=== PATIENT | female | born 1985 | race Caucasian/White ===

== ENCOUNTER 2020-08-18 04:22 | Emergency (ER) | payer MEDICAID, SELFPAY ==
[2020-08-18 04:35] VITALS: BP 112/78; PULSE 102; RESP 18; TEMP 37; O2SAT 100; BMI 26.4
--- NOTE | 2020-08-18 04:42 | XR_ITS ---
EXAMINATION: XR HAND, LEFT CLINICAL INFORMATION: Fourth finger trauma COMPARISON: None TECHNIQUE: PA, lateral, and oblique views of the left hand. FINDINGS: Osseous alignment is anatomic. No acute fracture is seen. No significant focal soft tissue abnormality identified. XR/XR hand LT min 3V IMPRESSION: No acute findings identified.
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
== END 2020-08-18 05:54 | disposition home or self-care (01) ==
PROVIDERS: Emergency Provider Emergency Medicine
DX: S63.615A Unspecified sprain of left ring finger, initial encounter (principal); S60.042A Contusion of left ring finger without damage to nail, initial encounter; M79.645 Pain in left finger(s); Y33.XXXA Other specified events, undetermined intent, initial encounter; Y93.9 Activity, unspecified; Y92.9 Unspecified place or not applicable; Y99.9 Unspecified external cause status
CPT/HCPCS: 73130; 99283

== ENCOUNTER 2020-09-03 17:20 | Emergency (ER) | payer MEDICAID, SELFPAY ==
--- NOTE | 2020-09-03 21:24 | ED.GENADULT ---
HPI - General Adult General Chief complaint: General Medical Stated complaint: Flu like symptoms Time Seen by Provider: 09/03/20 20:09 Source: patient Mode of arrival: ambulatory Limitations: no limitations History of Present Illness HPI narrative: Rhino/congestion here with with similar symptoms concern for COVID-19. Denies any recent travel. No fever or chest pain or shortness of breath. Onset (ago): day(s) (1 days ) Exacerbating factors: none Treatments prior to arrival: none Related Data Allergies Allergy/AdvReac Type Severity Reaction Status Date / Time No Known Allergies Allergy Unverified 08/18/20 04:40 [No Known Allergies*] Review of Systems Review of Systems: Constitutional: No Weight loss, No Fever, No Chills, No Night Sweats, No Fatigue, No Malaise ENT/Mouth: No Hearing loss, No Ear Pain, + Nasal Congestion, No Sinus Pain, No Hoarseness, No sore throat, + Rhinorrhea, No Swallowing Difficulty Eyes: No Eye Pain, No Swelling, No Redness, No Foreign Body, No Discharge, No Vision Changes Cardiovascular: No Chest Pain, No SOB, No Dyspnea on Exertion, No Orthopnea, No Edema, No Palpitations Respiratory: No Cough, No Sputum, No Wheezing, No Smoke Exposure, No Dyspnea Gastrointestinal: No Nausea, No Vomiting, No Diarrhea, No Constipation, No abdominal Pain, No Hematochezia, No Melena Genitourinary: no irregular bleeding, No Dysuria, No Urinary Frequency, No Hematuria, No Urinary Incontinence, No Urgency, No Flank Pain, No Urinary Flow Changes, No Hesitancy Musculoskeletal: No joint pain, No Myalgias, No Joint Swelling Skin: No Skin Lesions, No rash Neuro: No Weakness, No Numbness, No Paresthesias, No Loss of Consciousness, No Dizziness, No Headache Psych: No Anxiety/Panic Heme/Lymph: No Bruising, No Bleeding,No Lymphadenopathy Endocrine: No Polyuria, No Polydipsia, No Temperature Intolerance Yes all other systems are reviewed and are negative [facility] Past Medical History Surgical History Hx of foot surgery Social History Social History Advance Directives: No Advance Directives Information Provided: No Physical Exam Vital Signs: Vital Signs: Reviewed Const: General: cooperative and healthy appearing; No acute distress or intoxicated appearing Nutritional Appearance: average body habitus Orientation/consciousness: patient oriented x3 HENMT: Head: Yes normal to inspection Ears: hearing grossly normal bilaterally Eyes: General: appearance normal, both eyes and all related structures Visual Horner: normal visual horner by confrontation Neck: Neck: Yes normal visual inspection, No positive Brudzinski's sign, No positive Kernig's sign and No tender Thyroid: Thyroid normal Chest: Chest palpation & inspection: normal inspection of the chest Resp: Effort & Inspection: normal respiratory effort Cardio: Jugular venous distension: no JVD : General: Yes no CVA tenderness Back/Spine/Pelvis: Back: no CVA tenderness Skin: General skin exam: no rashes or lesions noted Neuro: General: patient oriented x3 Extrem: General: Yes normal to inspection Discharge Plan Discharge Clinical Impression: Viral syndrome Patient Disposition: Home, Self-Care Instructions: Viral Syndrome (ED) Additional Instructions: Based on your symptoms and history we have sent a COVID-19. Although your RESULT IS PENDING at this time. RESULTS should return within 72 hours. At this time you will be contacted with either NEGATIVE OR POSITIVE results. -Please wait until we contact you for your results. At this time you will be okay for discharge. Please plan for self quarantine for up to 14 days. Do not expose yourself to others. You may not go to work. If testing does come back negative you may return to activities as long as you are no longer having any symptoms for at least 3 days. Please continue to follow cold instructions and wash your hands frequently. You may take Tylenol as directed on the bottle for pain or fever. Patient seen in the emergency department on 04/20/2020 and should be excused from work until negative test results AND until 72 hours without any symptoms AND at least 10 days have passed since symptoms first appeared or since last exposure to COVID-19 positive patient CDC Guidelines for home isolation: - Stay away from others - WEAR A MASK if you are sick AND STAY HOME - Cover your mouth and nose with a tissue when you cough or sneeze. Dispose of tissues in a lined trash can and wash your hands immediately with soap and water for at least 20 seconds. If soap and water are not available, clean hands with alcohol-based hand accountant controller that contains at least 60% alcohol. - Clean your hands often with soap and water for at least 20 seconds - Avoid touching your eyes, nose and mouth with unwashed hands - Do not share dishes, drinking glasses, cups, eating utensils, towels, or bedding with other people in your home. After using these items, wash them thoroughly with soap and water or put in the solar systems designer. - Clean high-touch surfaces in your isolation area ( sick room and bathroom) every day; let a caregiver clean and disinfect high-touch surfaces in other areas of the home. Clean the area or item with soap and water or another detergent if it is dirty. Then, use a household disinfectant. - Limit contact with pets and animals: If you must care for a pet, wash your hands before and after interacting with them Referrals: Yolanda Aaron MD [Primary Care Provider] - 1 week (Phone visit )
== END 2020-09-03 21:48 | disposition home or self-care (01) ==
PROVIDERS: Nurse Practitioner Primary Care; Emergency Provider Emergency Medicine; PCP Internal Medicine
DX: B34.9 Viral infection, unspecified (principal); Z20.828 Contact with and (suspected) exposure to other viral communicable diseases
CPT/HCPCS: 99282; 99283; U0003

== ENCOUNTER 2020-09-10 07:13 | Outpatient (REF) | payer MEDICAID, SELFPAY | END 2020-09-10 07:14 | disposition home or self-care (01) | LOC: HO.LAB 07:13 | PROVIDERS: Visit Provider Internal Medicine | DX: Z20.828 Contact with and (suspected) exposure to other viral communicable diseases (principal) | CPT/HCPCS: C9803; U0003 ==

== ENCOUNTER 2020-10-05 09:53 | Outpatient (REF) | payer MEDICAID, SELFPAY ==
[2020-10-06 11:05] LABS: BV Int Neg Control Negative (Negative); BV Int Pos Control Positive (Positive)
[2020-10-10 16:43] LABS: HPV mRNA E6/E7 rflx Not Detected (Not Detected)
[2020-11-02 22:16] LABS: CT PCR NOT DETECTED (Not Detect.); NG PCR NOT DETECTED (Not Detect.)
== END 2020-10-05 09:54 | disposition home or self-care (01) ==
LOC: HO.LAB 09:53
PROVIDERS: PCP Internal Medicine; Referring Provider Internal Medicine; Visit Provider Advanced Practice Midwife
DX: Z01.419 Encounter for gynecological examination (general) (routine) without abnormal findings (principal); N76.1 Subacute and chronic vaginitis; Z87.42 Personal history of other diseases of the female genital tract; N63.0 Unspecified lump in unspecified breast; R10.2 Pelvic and perineal pain
CPT/HCPCS: 87480; 87491; 87510; 87591; 87624; 87625; 87660; 88142

== ENCOUNTER 2020-10-12 08:53 | Outpatient (REF) | payer MEDICAID, SELFPAY ==
--- NOTE | 2020-10-12 09:00 | US_ITS ---
EXAMINATION: MM DIAGNOSTIC DIGITAL BREAST TOMOSYNTHESIS, BILATERAL US DIAGNOSTIC ULTRASOUND BREAST, BILATERAL CLINICAL INFORMATION: 35-year-old with bilateral palpable findings at clinical exam. 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 Family history premenopausal breast cancer, aunt, age 29. The lifetime risk of breast cancer based on the Tyrer-Cuzick Model is 15%. COMPARISON: Mammography: 08/27/2018, 08/23/2018; targeted left breast ultrasound 08/23/2018, ultrasound guided left core biopsy 08/27/2018. TECHNIQUE: Digital breast tomosynthesis is performed in both the craniocaudal and mediolateral oblique views along with computer-aided detection (CAD). Synthesized 2D images are generated from the tomosynthesis. Additional bilateral magnification CC and bilateral magnification ML views are obtained. Ultrasound bilateral breasts is targeted to the areas of clinical concern, bilateral medial breasts. No palpable concern no discharge noted by patient. Grayscale imaging and color Doppler are performed without and with harmonics. FINDINGS: MAMMOGRAPHY: The breasts are heterogeneously dense, which may obscure small masses (ACR BI-RADS breast composition Category c). Left: Left breast has small macrolobulated nodule anterior 4:00 position best seen on tomography, similar to prior mammography 2018 and consistent with cyst on prior ultrasound. The other mass mid upper inner quadrant with superimposed biopsy clip marker appears stable to slightly decreased and consistent with biopsy-proven fibroadenoma. Left breast shows no developing density or interval new mass or architectural abnormality. Left breast has new fine punctate calcifications anterior 3:00 position which slightly vary in shape, some round and some short linear. Stereotactic sampling left breast is recommended. Right: Right breast has subtle oval asymmetry posterior upper outer quadrant near area of palpable concern with smooth partly obscured margins measuring approximately 1.6 x 1.2 cm. Finding not seen with certainty on prior mammography 2018. There are new fine punctate calcifications central right breast regionally distributed without focal grouping or ductal distribution. These may be reassessed with mammography in 6 months. ULTRASOUND: Left: The previously sampled fibroadenoma is similar in size to prior ultrasound 2018. Current measurements are 2.0 x 1.6 x 1.0 cm and prior measurements 2.2 x 1.8 x 1.1 cm. There is no interval new cystic or solid mass or architectural abnormality. No focal duct ectasia. Right: There is a circumscribed mildly hypoechoic mass posterior upper inner quadrant measuring 2.2 x 1.3 x 0.9 cm with internal small peripheral cystic component measuring 0.6 x 0.3 cm. Lesion decreases in echogenicity on harmonics. There is no posterior shadowing. This appears to correspond to the size and shape and location of finding on mammography. Differential considerations include pseudoangiomatous stromal hyperplasia, fibroadenoma, other. Ultrasound-guided core biopsy is recommended. There are no other cystic or solid masses or architectural abnormality in the targeted right breast. MANAGEMENT: Results are discussed with the patient at time of visit, with tile power shear operator assistance. Recommendations are for stereotactic biopsy left breast calcifications anterior 3:00 position and ultrasound-guided core biopsy right breast mass posterior upper inner quadrant. US/US breast RT limited IMPRESSION: 1. Left: New loosely grouped calcifications anterior 3:00 position. Biopsy proven fibroadenoma near area of palpable concern, stable. 2. Right: New probable benign regional calcifications. Oval mass posterior upper inner quadrant corresponding to area of palpable concern. ASSESSMENT: BI-RADS 4: Suspicious RECOMMENDATION: 1. Stereotactic biopsy left breast calcifications. 2. Ultrasound-guided core biopsy right breast mass. The right breast calcifications may be reassessed with mammography in 6 months.
== END 2020-10-12 08:54 | disposition home or self-care (01) ==
LOC: HO.MAMMO 08:53
PROVIDERS: Visit Provider Advanced Practice Midwife
DX: N63.12 Unspecified lump in the right breast, upper inner quadrant (principal); N63.22 Unspecified lump in the left breast, upper inner quadrant; N36.0 Urethral fistula
CPT/HCPCS: 76642; 77062; 77066

== ENCOUNTER → 2020-10-18 11:23 | Outpatient (BNVA) | payer MEDICAID, SELFPAY | PROVIDERS: PCP Internal Medicine; Visit Provider Surgery | DX: N63.12 Unspecified lump in the right breast, upper inner quadrant (principal); R92.0 Mammographic microcalcification found on diagnostic imaging of breast | CPT/HCPCS: 99202 ==

== ENCOUNTER 2020-10-24 08:07 | Outpatient (REF) | payer MEDICAID, SELFPAY ==
--- NOTE | 2020-10-24 | MM_ITS ---
EXAMINATION: ULTRASOUND GUIDED CORE BIOPSY BREAST, RIGHT POST PROCEDURE DIGITAL BREAST TOMOSYNTHESIS, BILATERAL CLINICAL INFORMATION: Solid mass at palpable area of concern 1:00 right breast. Ultrasound-guided core sampling recommended. This procedure is performed immediately following contralateral left breast stereotactic biopsy for calcifications, described in separate report. COMPARISON: Digital breast tomosynthesis and targeted right breast ultrasound 10/12/2020. FINDINGS: Proper informed consent is obtained from the patient after discussion of the procedure, potential risks and complications, and alternatives. Patient was given an opportunity for questions. The patient appeared to understand. The patient consented to the procedure and signed the consent form. Hospital provided livestock producer assisted for consent and throughout the procedures. GUIDANCE: Ultrasound-guided; aseptic technique. LESION: Oval circumscribed mass 2.2 x 1.3 x 0.9 cm with internal small peripheral cystic component under 1 cm. Differential considerations: PASH, Fibroadenoma, benign phylloides, other. APPROACH: Caudal cranial. ANESTHESIA: 10 mL 1% lidocaine. DERMATOTOMY: Single skin ronaldo dermatotomy performed. NEEDLE: 14-gauge Achieve core biopsy device with 13.5-gauge co-axial guide needle. CORES: 5. CLIP: HydroMARK; shape: butterfly. POST PROCEDURE DIGITAL BREAST TOMOSYNTHESIS, BILATERAL: The post biopsy mammogram is performed in separate room using separate digital mammography tomosynthesis equipment from the biopsy procedures. Bilateral CC and bilateral ML views are obtained. The breasts are heterogeneously dense, which may obscure small masses (breast composition category: c). The bilateral clip markers are in expected position. There is no gross hematoma. The left breast has a old clip marker upper inner quadrant corresponding to a fibroadenoma sampled in 2018. The patient tolerated the procedure well. No immediate complications. Home instructions reviewed with the patient. Final pathology results are pending. MM/MM diagnostic mammo unilat RT IMPRESSION: 1. Status post ultrasound-guided core biopsy right breast. 2. Clip placed: HydroMARK; shape: butterfly. 3. Pathology pending. An addendum report will be issued. 4. Stereotactic biopsy contralateral left breast also performed today, described in separate report.
--- NOTE | 2020-10-24 08:13 | MM_ITS ---
EXAMINATION: STEREOTACTIC TOMOSYNTHESIS-GUIDED VACUUM-ASSISTED BREAST BIOPSY, LEFT SPECIMEN RADIOGRAPH, LEFT CLINICAL INFORMATION: 35-year-old with new fine punctate calcifications anterior 3:00 position with slightly vary in shape. There are some layering calcifications as well and this area which may suggest calcium oxalate. Family history premenopausal breast cancer in an aunt, age 29. Patient also had ultrasound-guided core biopsy contralateral right breast today, described in separate report. COMPARISON: Mammography 10/12/2020, left breast ultrasound 10/12/2020. TECHNIQUE/PROCEDURE: Informed consent was obtained from the patient after discussion of the benefits, risks, and alternatives to biopsy today. Patient appeared to understand. Gave opportunity for questions. Patient signed consent form. Hospital provided public finance specialist assisted for consent and throughout the procedures. BIOPSY TABLE: Spacebikini Prone Biopsy System. LESION: Calcifications anterior 3:00 position. LOCAL ANESTHESIA: 5 mL 1% lidocaine; 10 mL 1% lidocaine with epinephrine. DERMATOTOMY: Single skin ronaldo dermatotomy performed. NEEDLE: BrandShieldiva 9-gauge vacuum assisted core biopsy device. APPROACH: lateral medial. TARGETING: Combination of digital breast tomosynthesis and stereotactic digital mammography used for targeting. CORES: 13. CLIP: emo2 IncurMark T-shaped marker. SPECIMEN RADIOGRAPH: Specimen radiograph is taken in separate room using digital mammography. The index calcifications are in the excised cores. There are over 10 calcifications in the cores. Post procedure mammography performed following the contralateral right breast biopsy, described in separate report. There is satisfactory positioning of the clip. No gross hematoma. The patient tolerated the procedure well. No immediate complications. Home instructions reviewed with the patient. Final pathology results are pending. MM/MM stereotactic biopsy LT IMPRESSION: 1. Digital tomosynthesis-guided core biopsy left breast with clip placement. 2. Specimen radiograph taken and post procedure mammogram. There is satisfactory positioning of the biopsy clip. 3. Final pathology results pending. An addendum report will be issued.
--- NOTE | 2020-10-24 08:13 | US_ITS ---
EXAMINATION: ULTRASOUND GUIDED CORE BIOPSY BREAST, RIGHT POST PROCEDURE DIGITAL BREAST TOMOSYNTHESIS, BILATERAL CLINICAL INFORMATION: Solid mass at palpable area of concern 1:00 right breast. Ultrasound-guided core sampling recommended. This procedure is performed immediately following contralateral left breast stereotactic biopsy for calcifications, described in separate report. COMPARISON: Digital breast tomosynthesis and targeted right breast ultrasound 10/12/2020. FINDINGS: Proper informed consent is obtained from the patient after discussion of the procedure, potential risks and complications, and alternatives. Patient was given an opportunity for questions. The patient appeared to understand. The patient consented to the procedure and signed the consent form. Hospital provided diplomatic interpreter/translator assisted for consent and throughout the procedures. GUIDANCE: Ultrasound-guided; aseptic technique. LESION: Oval circumscribed mass 2.2 x 1.3 x 0.9 cm with internal small peripheral cystic component under 1 cm. Differential considerations: PASH, Fibroadenoma, benign phylloides, other. APPROACH: Caudal cranial. ANESTHESIA: 10 mL 1% lidocaine. DERMATOTOMY: Single skin ronaldo dermatotomy performed. NEEDLE: 14-gauge Achieve core biopsy device with 13.5-gauge co-axial guide needle. CORES: 5. CLIP: HydroMARK; shape: butterfly. POST PROCEDURE DIGITAL BREAST TOMOSYNTHESIS, BILATERAL: The post biopsy mammogram is performed in separate room using separate digital mammography tomosynthesis equipment from the biopsy procedures. Bilateral CC and bilateral ML views are obtained. The breasts are heterogeneously dense, which may obscure small masses (breast composition category: c). The bilateral clip markers are in expected position. There is no gross hematoma. The left breast has a old clip marker upper inner quadrant corresponding to a fibroadenoma sampled in 2018. The patient tolerated the procedure well. No immediate complications. Home instructions reviewed with the patient. Final pathology results are pending. US/US breast ndl core biopsy RT IMPRESSION: 1. Status post ultrasound-guided core biopsy right breast. 2. Clip placed: HydroMARK; shape: butterfly. 3. Pathology pending. An addendum report will be issued. 4. Stereotactic biopsy contralateral left breast also performed today, described in separate report.
== END 2020-10-24 08:08 | disposition home or self-care (01) ==
LOC: HO.MAMMO 08:07
PROVIDERS: PCP Internal Medicine; Visit Provider Surgery
DX: R92.0 Mammographic microcalcification found on diagnostic imaging of breast (principal); N63.10 Unspecified lump in the right breast, unspecified quadrant
CPT/HCPCS: 19081; 19083; 77065; 77066; 88305; A4648

== ENCOUNTER → 2020-10-24 12:59 | Outpatient (BNV) | payer MEDICAID, SELFPAY | PROVIDERS: PCP Internal Medicine; Referring Provider Internal Medicine; Visit Provider Internal Medicine Medical Oncology | DX: I26.99 Other pulmonary embolism without acute cor pulmonale (principal) | CPT/HCPCS: 99202; 99204; 99213; 99214 ==

== ENCOUNTER → 2020-10-30 13:50 | Outpatient (BNVA) | payer MEDICAID, SELFPAY | PROVIDERS: PCP Internal Medicine; Visit Provider Surgery | DX: N63.10 Unspecified lump in the right breast, unspecified quadrant (principal); R92.0 Mammographic microcalcification found on diagnostic imaging of breast | CPT/HCPCS: 99212 ==

== ENCOUNTER 2020-11-08 13:01 | Outpatient (REF) | payer MEDICAID, SELFPAY ==
[2020-11-09 12:43] LABS: BV Int Neg Control Negative (Negative); BV Int Pos Control Positive (Positive)
[2020-11-09 19:17] LABS: C. trachomatis RNA TMA NOT DETECTED (NOT DETECTED); N. gonorrhoeae RNA TMA NOT DETECTED (NOT DETECTED)
[2020-11-12 15:47] LABS: HPV mRNA E6/E7 rflx Not Detected (Not Detected)
== END 2020-11-08 13:02 | disposition home or self-care (01) ==
LOC: HO.LAB 13:01
PROVIDERS: PCP Internal Medicine; Visit Provider Advanced Practice Midwife
DX: N89.8 Other specified noninflammatory disorders of vagina (principal); R10.2 Pelvic and perineal pain; R87.615 Unsatisfactory cytologic smear of cervix; F17.210 Nicotine dependence, cigarettes, uncomplicated
CPT/HCPCS: 36415; 87480; 87491; 87510; 87591; 87624; 87660; 88141; 88142; 99212

== ENCOUNTER 2021-01-15 11:32 | Outpatient (REF) | payer MEDICAID, SELFPAY ==
--- NOTE | ~2021-01-15 | US_ITS ---
EXAMINATION: US VENOUS ULTRASOUND WITH DOPPLER LOWER EXTREMITY, BILATERAL CLINICAL INFORMATION: Evaluate for DVT COMPARISON: None TECHNIQUE: Ultrasound of the deep veins is performed from the hip to the calf with compression sonography and color and pulse Doppler assessment. Spectral analysis with color-flow imaging is performed. FINDINGS: RIGHT: There is normal venous compression and respiratory variation and augmented flow. The visualized common femoral vein, superficial femoral vein, profunda femoral vein, popliteal vein, and the trifurcation region shows no evidence of deep venous thrombosis. There is no significant popliteal fossa cyst. LEFT: There is normal venous compression and respiratory variation and augmented flow. The visualized common femoral vein, superficial femoral vein, profunda femoral vein, popliteal vein, and the trifurcation region shows no evidence of deep venous thrombosis. There is no significant popliteal fossa cyst. If the patient's symptoms persist, followup ultrasound in 5 days 7 days might be of value to exclude proximal propagation from a non-visualized calf vein. US/US venous duplex LE BI IMPRESSION: No DVT demonstrated in the bilateral lower extremity.
== END 2021-01-15 11:33 | disposition home or self-care (01) ==
LOC: HO.HMGCX 11:32
PROVIDERS: Visit Provider Internal Medicine Medical Oncology
DX: I82.403 Acute embolism and thrombosis of unspecified deep veins of lower extremity, bilateral (principal)
CPT/HCPCS: 93970

== ENCOUNTER 2021-04-19 12:59 | Outpatient (REF) | payer MEDICAID, SELFPAY ==
--- NOTE | ~2021-04-19 | MM_ITS ---
EXAMINATION: MM DIAGNOSTIC DIGITAL BREAST TOMOSYNTHESIS, BILATERAL CLINICAL INFORMATION: Age 35. Short interval follow-up probable benign calcifications central right breast. Also short interval follow-up remaining left breast calcifications outer quadrant (benign left stereotactic biopsy 10/24/2020: benign breast tissue with fibrocystic changes and calcifications). Prior history bilateral benign ultrasound-guided biopsies: right 10/24/2020 (fibroadenoma) and left 08/27/2018 (fibroadenoma). The lifetime risk of breast cancer based on the Tyrer-Cuzick Model is 12%. COMPARISON: Mammography: 10/24/2020, 10/12/2020, 08/23/2018 TECHNIQUE: Digital breast tomosynthesis is performed in both the craniocaudal and mediolateral oblique views along with computer-aided detection (CAD). Synthesized 2D images are generated from the tomosynthesis. Additional bilateral magnification CC and bilateral magnification ML views are obtained. FINDINGS: The breasts are heterogeneously dense, which may obscure small masses (ACR BI-RADS breast composition Category c). There is no interval mass or architectural abnormality. The axilla and skin contours are unremarkable. Parenchymal pattern is similar to prior exam. Again, there is biopsy clip marker adjacent to the known fibroadenoma mid medial left breast. Again, there is biopsy clip marker overlying known right fibroadenoma mid medial right breast. Right breast calcifications for follow-up central breast are stable from prior diagnostic exam. These are punctate round and without pleomorphic types or interval ductal distribution. They will be reassessed again in 6 months at time of annual exam. Left breast calcifications are decreased in the area of recent sampling. The remaining left breast calcifications are stable appearing scattered and similar without focal grouping or ductal distribution. They will be reassessed again in 6 months at time of annual exam. Results are provided to the patient at time of visit by the technologist. MM/MM tomosynthesis diagnostic BI IMPRESSION: 1. No significant changes and probable benign bilateral breast calcifications. 2. Known bilateral fibroadenomas medial breasts. No significant changes. ASSESSMENT: BI-RADS 3: Probably Benign RECOMMENDATION: Diagnostic mammography at time of annual bilateral exam to include bilateral magnification views, due in 6 months. This patient's information was entered into a reminder system with a target due date for their next mammogram.
== END 2021-04-19 13:00 | disposition home or self-care (01) ==
LOC: HO.MAMMO 12:59
PROVIDERS: Visit Provider Surgery
DX: R92.0 Mammographic microcalcification found on diagnostic imaging of breast (principal)
CPT/HCPCS: 77062; 77066

== ENCOUNTER 2021-05-07 13:53 | Outpatient (REF) | payer MEDICAID, SELFPAY ==
[2021-05-08 09:19] LABS: CT PCR NOT DETECTED (Not Detect.); NG PCR NOT DETECTED (Not Detect.)
[2021-05-08 09:24] LABS: BV Int Neg Control Negative (Negative); BV Int Pos Control Positive (Positive)
== END 2021-05-07 13:54 | disposition home or self-care (01) ==
LOC: HO.LAB 13:53
PROVIDERS: PCP Internal Medicine; Visit Provider Advanced Practice Midwife
DX: Z11.3 Encounter for screening for infections with a predominantly sexual mode of transmission (principal); R10.2 Pelvic and perineal pain; Z20.2 Contact with and (suspected) exposure to infections with a predominantly sexual mode of transmission
CPT/HCPCS: 81003; 81025; 87480; 87491; 87510; 87591; 87660; 99212

== ENCOUNTER 2021-06-21 21:34 | Emergency (ER) | payer MEDICAID, SELFPAY ==
[2021-06-21 22:04] VITALS: BP 114/85; PULSE 73; RESP 18; TEMP 36.9; O2SAT 99; BMI 27.9
[2021-06-21 23:00] LABS: Influenza A PCR NEGATIVE (Negative); Influenza B PCR NEGATIVE (Negative); Resp Syncy Virus RNA Qual PCR NEGATIVE (Negative); SARS COV2 PCR INHOUSE NEGATIVE (Negative)
--- NOTE | 2021-06-22 00:30 | PC.NURSE ---
pt and family left before md to see pt
== END 2021-06-22 00:31 | disposition left against medical advice (07) ==
PROVIDERS: Emergency Provider Student in an Organized Health Care Education/Training Program; PCP Internal Medicine
DX: J02.9 Acute pharyngitis, unspecified (principal); Z20.822 Contact with and (suspected) exposure to COVID-19
CPT/HCPCS: 0241U; 36415; 99281; 99283

== ENCOUNTER → 2021-07-24 09:29 | Outpatient (BNVA) | payer MEDICAID, SELFPAY | PROVIDERS: PCP Internal Medicine; Visit Provider Advanced Practice Midwife ==

== ENCOUNTER 2021-08-15 09:49 | Outpatient (REF) | payer MEDICAID, SELFPAY ==
--- NOTE | 2021-08-15 | PFT_ITS ---
INDICATION: History of pulmonary emboli. SPIROMETRY: The FEV1 to FVC 89% with an FEV1 of 2.97 L, which is 99% predicted, and an FVC of 3.34 L, which is 93% predicted. Maximum voluntary ventilation 170% predicted. LUNG VOLUMES: Total lung capacity 92% predicted. DIFFUSION CAPACITY: DLCO 87% predicted. COMPARISONS: None. INTERPRETATION: No obstructive nor restrictive ventilatory defects identified. No significant response to bronchodilators noted. Normal maximum voluntary ventilation suggesting good respiratory conditioning and lung volumes are within normal limits. The expiratory reserve volume is slightly decreased, but likely due to an elevated BMI. Diffusion capacity is within normal limits. If asthma is in the differential, methacholine challenge may be helpful in assessing for hyper-reactive airways, otherwise clinical correlation warranted. MD JORGE Oakes/MODOsmani / [id number]
== END 2021-08-15 09:50 | disposition home or self-care (01) ==
LOC: HO.RESP 09:49
PROVIDERS: PCP Internal Medicine; Visit Provider Internal Medicine
DX: Z86.711 Personal history of pulmonary embolism (principal); Z87.891 Personal history of nicotine dependence
CPT/HCPCS: 94060; 94727; 94729

== ENCOUNTER 2021-08-16 08:50 | Outpatient (REF) | payer MEDICAID, SELFPAY ==
[2021-08-16 14:20] LABS: CT PCR NOT DETECTED (Not Detect.); NG PCR NOT DETECTED (Not Detect.)
[2021-08-18 12:35] LABS: BV Int Neg Control Negative (Negative); BV Int Pos Control Positive (Positive)
== END 2021-08-16 08:51 | disposition home or self-care (01) ==
LOC: HO.LAB 08:50
PROVIDERS: PCP Internal Medicine; Visit Provider Advanced Practice Midwife
DX: R10.2 Pelvic and perineal pain (principal); N76.0 Acute vaginitis; B96.89 Other specified bacterial agents as the cause of diseases classified elsewhere; Z20.2 Contact with and (suspected) exposure to infections with a predominantly sexual mode of transmission
CPT/HCPCS: 87480; 87491; 87510; 87591; 87660; 99212

== ENCOUNTER 2021-08-21 13:36 | Outpatient (REF) | payer MEDICAID, SELFPAY ==
--- NOTE | ~2021-08-21 | US_ITS ---
EXAMINATION: US PELVIS CLINICAL INFORMATION: Pelvic and perineal pain COMPARISON: Previous exam May 2018 TECHNIQUE: Ultrasound of the pelvis is performed using both transabdominal and transvaginal transducers along with Doppler. Transvaginal imaging is performed due to inadequate visualization transabdominally. FINDINGS: The uterus is retroverted and measures 9 x 5 x 6.7 cm in dimension. No focal uterine lesion is seen. Endometrial thickness is normal measuring 0.9 cm. The ovaries are normal. The right ovary measures 2.6 x 1 x 2 cm. The left ovary measures 2.2 x 1.3 x 1.3 cm. There is no fluid in the pelvis. US/US pelvic and transvaginal IMPRESSION: Normal pelvic ultrasound.
== END 2021-08-21 13:37 | disposition home or self-care (01) ==
LOC: HO.US 13:36
PROVIDERS: PCP Internal Medicine; Visit Provider Advanced Practice Midwife
DX: R10.2 Pelvic and perineal pain (principal)
CPT/HCPCS: 76830; 76856

== ENCOUNTER → 2021-08-29 11:37 | Outpatient (BNVA) | payer MEDICAID, SELFPAY | PROVIDERS: PCP Internal Medicine; Visit Provider Advanced Practice Midwife ==

== ENCOUNTER 2021-09-04 08:00 | Emergency (ER) | payer MEDICAID, SELFPAY ==
--- NOTE | ~2021-09-04 | XR_ITS ---
EXAMINATION: XR CHEST CLINICAL INFORMATION: Cough and fever COMPARISON: 08/18/2018 TECHNIQUE: Frontal view of the chest was obtained. FINDINGS: Lungs are well-inflated and clear. Trachea is midline in position. No interstitial disease, consolidation or mass. No pulmonary edema, pleural effusion or pneumothorax. Cardiac silhouette and pulmonary vessels are normal in size. The mediastinum and suha have normal contour. There is chronic levoscoliosis of the lower thoracic spine and rotatory dextroscoliosis of partially visualized lumbar spine. XR/XR chest 1V IMPRESSION: No evidence of pneumonia. No acute cardiopulmonary abnormality.
[2021-09-04 08:10] VITALS: BP 116/89; PULSE 108; RESP 18; TEMP 36.9; O2SAT 99; BMI 30.2
[2021-09-04 08:32] LABS: COVID-19 Test Negative (Negative)
--- NOTE | 2021-09-04 09:06 | ED.URI ---
HPI - URI/Sore Throat General Chief Complaint: Upper Respiratory Symptoms Stated Complaint: flu like symptoms, chest pain Time Seen by Provider: 09/04/21 09:06 Source: patient Mode of arrival: ambulatory Limitations: no limitations History of Present Illness HPI Narrative: cough, fever and shortness of breath starting yesterday. Patient is not vaccinated for COVID or flu. MD elicited complaint: fever and cough Pertinent past history: pneumonia Onset (ago): day(s) Consistency: constant Severity: mild Exacerbating factors: deep breaths Associated symptoms: fever, chills, myalgias, headache, rhinorrhea, nasal congestion, sore throat and cough Related Data Previous Rx's Medication Instructions Recorded asyfwzegcyrzm-DC-lvwowrphcjn 2.5 20 ml PO Q4H PRN #118 ml 09/04/21 mg-5 mg-50 mg/5 mL oral liquid (Robitussin Cough and Cold CF) Allergies Allergy/AdvReac Type Severity Reaction Status Date / Time No Known Allergies Allergy Verified 08/29/21 11:38 [No Known Allergies*] Review of Systems Constitutional: Constitutional: Reports no additional constitutional complaints Eyes: Eyes: Reports no additional eye complaints ENT: Denies dizziness Cardiovascular: Cardiovascular: Reports no additional cardiovascular complaints Respiratory: Respiratory: Reports as per HPI Gastrointestinal: Gastrointestinal: Reports no additional gastrointestinal complaints Genitourinary: Genitourinary: Reports no additional female genitourinary complaints Musculoskeletal: Musculoskeletal: Reports no additional musculoskeletal complaints Integumentary/Breasts: Skin/Breast: Denies rash Neurologic: Reports system reviewed and no additional complaints, except as documented, Denies dizziness and Denies Sensory deficit (Neuro) Psychiatric: Psychiatric: Denies anxiety FOR[facility] Past Medical History Medical History DVT (deep venous thrombosis) PE (pulmonary thromboembolism) Surgical History Hx of foot surgery Hx of tubal ligation Family History Family History Maternal Aunt Breast cancer Social History Social History Alcohol intake: never Advance Directives: No Advance Directives Information Provided: No Patient : No Gender identity: Female Physical Exam Vital Signs: Vital Signs: Last Vital Signs Temp 97.8 F 09/04/21 11:03 Pulse 103 H 09/04/21 11:03 Resp 16 09/04/21 11:03 BP 124/88 09/04/21 11:03 Pulse Ox 97 09/04/21 11:03 Body Mass Index 30.2 Const: Other: Female couging appearing slightly short of breath Nutritional Appearance: average body habitus Orientation/consciousness: oriented to person and patient oriented x3 Limitations: no limitations HENMT: Head: Yes normal to inspection Ears: external ears normal General nose exam: Normal external nose present Mouth: Normal oral and palatal mucosa present and oropharynx normal Throat: Yes posterior oropharynx normal Eyes: General: appearance normal, both eyes and all related structures Neck: Other: supple Neck: Yes normal visual inspection Chest: Chest palpation & inspection: normal inspection of the chest Resp: Other: no wheezing no rales Auscultation: clear to auscultation bilaterally Cardio: Jugular venous distension: no JVD Rate: regular rate Rhythm: regular rhythm Heart sounds: S1 normal heart sound present and S2 normal heart sound present GI: Inspection: Yes normal to inspection Palpation (GI): Soft to palpation, nontender and No hepatosplenomegaly present Auscultation: normal bowel sounds : General: Yes no CVA tenderness Back/Spine/Pelvis: Back: no CVA tenderness Skin: General skin exam: no rashes or lesions noted Neuro: General: oriented to person and patient oriented x3 Cranial nerves: Yes CN's II-XII intact bilaterally Motor exam (neuro): 5/5 motor strength present throughout Sensory Exam: No Sensory deficit (Neuro) Extrem: General: Yes normal to inspection Psych: Appearance: grossly normal Course Reevaluation(s) Reevaluation #1: Despite patient acting like COVID 2 tests are negative, Chest xray negative will dc with viral bronchitis Time: 11:32 MDM - URI/Sore Throat Lab Data Labs: Lab Results 09/04/21 09/04/21 Range/Units 08:13 09:29 COVID-19 (RACHELLE) Negative (Negative) COVID-19 Clin Com See Note Influenza Type A (PCR) NEGATIVE (Negative) Influenza Type B (PCR) NEGATIVE (Negative) RSV RNA Qual (PCR) NEGATIVE (Negative) SARS-CoV-2 RNA (RT-PCR) NEGATIVE (Negative) Imaging Data Chest x-ray: Radiologist's impression: FINDINGS: Lungs are well-inflated and clear. Trachea is midline in position. No interstitial disease, consolidation or mass. No pulmonary edema, pleural effusion or pneumothorax.? Cardiac silhouette and pulmonary vessels are normal in size. The mediastinum and suha have normal contour. There is chronic levoscoliosis of the lower thoracic spine and rotatory dextroscoliosis of partially visualized lumbar spine. XR/XR chest 1V IMPRESSION: No evidence of pneumonia. No acute cardiopulmonary abnormality. ? Discharge Plan Discharge Clinical Impression: Viral infection Upper respiratory infection Qualifiers: URI type: unspecified viral URI Qualified Code(s): J06.9 - Acute upper respiratory infection, unspecified Patient Disposition: Home, Self-Care Instructions: Upper Respiratory Infection (ED), Viral Syndrome (ED) Prescriptions: New Robitussin Cough and Cold CF 2.5-5-50 mg/5 mL liquid 20 ml PO Q4H PRN (Reason: cough) Qty: 118 RF: 0 Referrals: Yolanda Aaron MD [Primary Care Provider] - 1 week
[2021-09-04 10:30] LABS: Influenza A PCR NEGATIVE (Negative); Influenza B PCR NEGATIVE (Negative); Resp Syncy Virus RNA Qual PCR NEGATIVE (Negative); SARS COV2 PCR INHOUSE NEGATIVE (Negative)
[2021-09-04 11:03] VITALS: BP 124/88; PULSE 103; RESP 16; TEMP 36.6; O2SAT 97
== END 2021-09-04 11:43 | disposition home or self-care (01) ==
PROVIDERS: Emergency Provider Emergency Medicine; PCP Internal Medicine
DX: B34.9 Viral infection, unspecified (principal); J06.9 Acute upper respiratory infection, unspecified; Z20.822 Contact with and (suspected) exposure to COVID-19
CPT/HCPCS: 0241U; 36415; 71045; 87635; 99283; 99284

== ENCOUNTER 2021-12-25 09:20 | Outpatient (REF) | payer MEDICAID, SELFPAY ==
--- NOTE | ~2021-12-25 | MM_ITS ---
EXAMINATION: MM DIAGNOSTIC DIGITAL BREAST TOMOSYNTHESIS, BILATERAL CLINICAL INFORMATION: 36, follow-up probable benign calcifications central right breast and remaining left breast calcifications. Family history premenopausal breast cancer, aunt age 29. TC score 12%. Personal history benign biopsies: -Left ultrasound biopsy 08/27/2018 (fibroadenoma). -Left stereotactic biopsy 10/24/2020 (fibrocystic changes and calcifications). -Right ultrasound biopsy 10/24/2020 (fibroadenoma). COMPARISON: Mammography: 04/19/2021, 10/24/2020, 10/12/2020 (diagnostic with mags), 08/27/2018, 08/23/2018 TECHNIQUE: Digital breast tomosynthesis is performed in both the craniocaudal and mediolateral oblique views along with computer-aided detection (CAD). Synthesized 2D images are generated from the tomosynthesis. Additional magnification views are obtained: Right CC, right MLO, left CC x2, left ML. FINDINGS: The breasts are heterogeneously dense, which may obscure small masses (ACR BI-RADS breast composition Category c). Parenchymal pattern is similar to prior studies. There is no interval mass or architectural abnormality or developing density. There is stable fibroadenoma with adjacent biopsy clip marker anterior medial left breast and stable fibroadenoma with overlying biopsy clip marker posterior medial right breast. The bilateral axilla and skin contours are unremarkable. The bilateral calcifications for follow-up are predominantly central right breast and central upper outer left breast are stable from prior diagnostic exams. They will be reassessed again at next bilateral annual mammography to conclude long-term surveillance in 12 months. Results are provided to the patient at time of visit by the technologist. MM/MM tomosynthesis diagnostic BI IMPRESSION: -No mammographic evidence of malignancy. -Bilateral probable benign stable calcifications for follow-up. ASSESSMENT: BI-RADS 3: Probably Benign RECOMMENDATION: Diagnostic mammography at time of next annual exam, due in 12 months. This patient's information was entered into a reminder system with a target due date for their next mammogram.
== END 2021-12-25 09:21 | disposition home or self-care (01) ==
LOC: HO.MAMMO 09:20
PROVIDERS: PCP Internal Medicine; Visit Provider Surgery
DX: N63.10 Unspecified lump in the right breast, unspecified quadrant (principal); R92.0 Mammographic microcalcification found on diagnostic imaging of breast
CPT/HCPCS: 77062; 77066

== ENCOUNTER 2022-02-12 14:33 | Outpatient (REF) | payer MEDICAID, SELFPAY ==
[2022-02-13 01:50] LABS: CT PCR NOT DETECTED (Not Detect.); NG PCR NOT DETECTED (Not Detect.)
[2022-02-13 11:11] LABS: BV Int Neg Control Negative (Negative); BV Int Pos Control Positive (Positive)
[2022-02-15 02:06] LABS: HPV mRNA E6/E7 rflx Not Detected (Not Detected)
== END 2022-02-12 14:34 | disposition home or self-care (01) ==
LOC: HO.LAB 14:33
PROVIDERS: PCP Internal Medicine; Visit Provider Advanced Practice Midwife
DX: Z01.411 Encounter for gynecological examination (general) (routine) with abnormal findings (principal); Z11.51 Encounter for screening for human papillomavirus (HPV); N89.8 Other specified noninflammatory disorders of vagina; Z20.2 Contact with and (suspected) exposure to infections with a predominantly sexual mode of transmission
CPT/HCPCS: 87480; 87491; 87510; 87591; 87624; 87660; 88142

== ENCOUNTER 2022-04-01 13:46 | Outpatient (REF) | payer MEDICAID, SELFPAY ==
[2022-04-02 04:01] LABS: HBc Num1 0.08 S/CO (0.00-0.79); HIV AB/AG Nonreactive (Nonreactive); Hepatitis B Core Antibody Nonreactive (Nonreactive); ~HepC Num1 0.06 S/CO (0.00-0.79); ~Hepatitis C Antibody Nonreactive (Nonreactive)
[2022-04-02 06:51] LABS: Syphilis Screen Nonreactive (Nonreactive)
== END 2022-04-01 13:47 | disposition home or self-care (01) ==
LOC: HO.LAB 13:46
PROVIDERS: PCP Internal Medicine; Visit Provider Advanced Practice Midwife
DX: Z11.4 Encounter for screening for human immunodeficiency virus [HIV] (principal); Z20.2 Contact with and (suspected) exposure to infections with a predominantly sexual mode of transmission
CPT/HCPCS: 36415; 86704; 86780; 86803; 87389

== ENCOUNTER 2022-04-22 15:37 | Outpatient (REF) | payer MEDICAID, SELFPAY ==
[2022-04-23 09:34] LABS: CT PCR NOT DETECTED (Not Detect.); NG PCR NOT DETECTED (Not Detect.)
[2022-04-23 10:05] LABS: BV Int Neg Control Negative (Negative); BV Int Pos Control Positive (Positive)
== END 2022-04-22 15:38 | disposition home or self-care (01) ==
LOC: HO.LAB 15:37
PROVIDERS: Visit Provider Advanced Practice Midwife
DX: Z11.3 Encounter for screening for infections with a predominantly sexual mode of transmission (principal); N76.0 Acute vaginitis; B96.89 Other specified bacterial agents as the cause of diseases classified elsewhere; Z87.42 Personal history of other diseases of the female genital tract
CPT/HCPCS: 87480; 87491; 87510; 87591; 87660; 99212

== ENCOUNTER 2022-07-18 06:05 | Emergency (ER) | payer MEDICAID, SELFPAY ==
--- NOTE | ~2022-07-18 | XR_ITS ---
EXAMINATION: XR CHEST 2 VIEW CLINICAL INFORMATION: Covid with fever, cough and chest tightness COMPARISON: 09/04/2020 TECHNIQUE: PA and lateral views of the chest obtained. FINDINGS: The lungs are clear. There are no pleural effusions. The cardiomediastinal silhouette is normal. Thoracolumbar scoliosis is again evident. XR/XR chest 2V IMPRESSION: No acute cardiopulmonary disease.
[2022-07-18 06:30] VITALS: BP 128/78; PULSE 72; RESP 14; TEMP 37.3; O2SAT 100; BMI 30.5
[2022-07-18 07:30] LABS: COVID-19 Test Negative (Negative); IDNOW Serial# 55D5AD1C
[2022-07-18 10:06] VITALS: BP 112/75; PULSE 70; RESP 16; TEMP 36.8; O2SAT 99
[2022-07-18] MEDS: guaiFENesin 200 MG/10 ML 10 ML LIQUID PO (10:43)
[2022-07-18] MEDS: predniSONE 20 MG TABLET 40 MG PO (10:43)
[2022-07-18] MEDS: Ibuprofen 800 MG TABLET PO (10:43)
--- NOTE | 2022-07-18 10:45 | ED.URI ---
HPI - URI/Sore Throat General Chief Complaint: General Medical Stated Complaint: COVID +, throat pain Time Seen by Provider: 07/18/22 09:39 Source: patient Mode of arrival: ambulatory Limitations: no limitations History of Present Illness HPI Narrative: 37-year-old female with a past medical history of bilateral pulmonary embolism, DVT presenting to the ER with URI complaints over the past few days worse today. She reports that she took a COVID test on Thursday which was positive. Then she took a test the next day which was negative for COVID. Therefore she is unsure if she is positive were negative for COVID. She reports fevers up to 100-101, intermittent headaches, sore throat, dry cough with chest tightness, body aches, myalgia and fatigue. She denies any sick contacts that she is aware of. She denies any dizziness, neck pain/stiffness, changes in vision, jaw pain, chest pain, shortness of breath, dyspnea on exertion, orthopnea, palpitations, paresthesias, nausea/vomiting/diarrhea constipation, abdominal pain, flank pain, back pain, dysuria, hematuria, abnormal vaginal discharge, lower extremity edema or calf tenderness, recent travel or sick contacts that she is aware of or any other symptoms complaints or concerns at this time. MD elicited complaint: fever, cough, sore throat, rhinorrhea, nasal congestion and other (Voice hoarseness) Onset (ago): day(s) (3) Consistency: constant Severity: mild Able to tolerate fluids by mouth: Yes Exacerbating factors: nothing Relieving factors: nothing Associated symptoms: fever, chills, voice changes, myalgias, headache, rhinorrhea, nasal congestion, sore throat and cough Treatments prior to arrival: none Related Data Home Medications Medication Instructions Recorded Confirmed bupropion HCl 150 mg 24 hr tablet, 1 tab PO DAILY 12/30/21 04/22/22 extended release (Wellbutrin XL) ergocalciferol (vitamin D2) 1,250 1 cap PO QWEEK 12/30/21 04/22/22 mcg (50,000 unit) capsule risperidone 0.25 mg tablet 1 tab PO BEDTIME 12/30/21 04/22/22 Previous Rx's Medication Instructions Recorded metronidazole 0.75 % (37.5 mg/5 1 appful vaginal BEDTIME 5 days 04/22/22 gram) vaginal gel #70 grams metronidazole 0.75 % (37.5 mg/5 1 appful vaginal BEDTIME 5 days 04/24/22 gram) vaginal gel #70 grams azithromycin 250 mg tablet See Rx Instructions PO .COMPLEX #6 07/18/22 tabs codeine 10 mg-guaifenesin 100 mg/5 5 ml PO Q6H PRN cold symptoms #120 07/18/22 mL oral liquid (Guaifenesin AC) mL prednisone 20 mg tablet 40 mg PO DAILY 5 days #10 tabs 07/18/22 Allergies Allergy/AdvReac Type Severity Reaction Status Date / Time No Known Allergies Allergy Verified 04/22/22 15:06 [No Known Allergies*] Review of Systems Review of Systems: Constitutional : + fevers/chills/fatigue/malaise, No Weight loss, No Night Sweats ENT/Mouth : + Sore throat/nasal congestion/rhinorrhea/hoarseness, No Hearing loss, No Ear Pain, No Sinus Pain, No Swallowing Difficulty Eyes: No Eye Pain, No Swelling, No Redness, No Foreign Body, No Discharge, No Vision Changes Cardiovascular : No Chest Pain, No SOB, No Dyspnea on Exertion, No Orthopnea, No Edema, No Palpitations Respiratory : + Cough, No Sputum, No Wheezing, No Smoke Exposure, No Dyspnea Gastrointestinal : No Nausea, No Vomiting, No Diarrhea, No Constipation, No abdominal Pain, No Hematochezia, No Melena Genitourinary : no irregular bleeding, No Dysuria, No Urinary Frequency, No Hematuria, No Urinary Incontinence, No Urgency, No Flank Pain, No Urinary Flow Changes, No Hesitancy Musculoskeletal : No joint pain, + Myalgias, No Joint Swelling Skin : No Skin Lesions, No rash Neuro : No Weakness, No Numbness, No Paresthesias, No Loss of Consciousness, No Dizziness, No Headache Psych : No Anxiety/Panic, No Depression, No SI/HI/AH/VH, No Social Issues, Heme/Lymph: No Bruising, No Bleeding,No Lymphadenopathy Endocrine : No Polyuria, No Polydipsia, No Temperature Intolerance Yes all other systems are reviewed and are negative [facility] Past Medical History Attestation statement: The following information was validated with the patient. Source: old records reviewed, obtained from family and nursing notes reviewed Medical History Abnormal Pap smear of cervix Bilateral pulmonary embolism DVT (deep venous thrombosis) PE (pulmonary thromboembolism) Pulmonary embolism Surgical History Hx of foot surgery Hx of tubal ligation Family History Family History Maternal Aunt Breast cancer Brother Diabetes Sister Diabetes Maternal Aunt Metastasis from esophageal cancer Father Colon cancer Social History Social History Household Members: Children Housing: Apartment Are you a primary care information associate to a significant other at home: No Do you presently have visiting nurse or other home services: No Alcohol intake: never Patient Tobacco Use Status: Current someday Tobacco user Tobacco use type: Cigarette Advance Directives: No Advance Directives Information Provided: No service: No Current occupational status: unemployed Gender identity: Female Physical Exam Vital Signs: Vital Signs: Last Vital Signs Temp 98.3 F 07/18/22 10:06 Pulse 82 07/18/22 11:04 Resp 16 07/18/22 11:04 BP 112/75 07/18/22 10:06 Pulse Ox 99 07/18/22 10:06 O2 Del Method 07/18/22 10:06 BMI result Body Mass Index 30.5 vital signs have been reviewed as normal and appeared to be correct. Blood pressure normal. Heart rate normal. Respiration rate normal. Temperature normal. Oxygen saturation normal. Appearance: Alert. Oriented X3. No acute distress. Head: Normal external exam. Normocephalic. Atraumatic. Eyes: PERRLA. EOMI. Conjunctiva and sclera normal. Eyelids normal. ENT: EAC normal. TM's Normal. Posterior pharynx/tonsils erythematous although no exudate is noted. The soft and hard palate within normal limits. Uvula midline. Moist mucous membranes. No lesions/ulcerations or masses noted on the tongue. Normal voice. No trismus noted. No drooling noted. No muffled voice noted. Neck: Normal inspection. Neck supple. FROM. No adenopathy. Thyroid Normal. No tracheal deviation noted. No crepitus is noted. No meningeal signs. No neck mass noted. No signs of trauma noted. CVS: Normal heart rate and rhythm. Heart sound normal. Pulses normal throughout. No murmurs/rales/gallops. Respiratory: No respiratory distress. Painless inspiration. Breath sounds normal. No wheezes/rales/rhonchi noted. Chest nontender. No crepitus is noted. No accessory muscle usage noted or decreased air movement noted. No signs of trauma. Abdomen: Soft and nontender. Nondistended. No guarding. No rigidity. Bowel sounds normal in all 4 quadrants. No distention noted. No organomegaly noted. No visible injury noted. No rebound tenderness. Negative Rovsing sign. Negative obturator's sign. Negative psoas sign. Negative Desai sign. Back: No CVA tenderness. Full range of motion noted. Nontender. No signs of trauma. Patient neuro intact bilaterally and distally on all 4 extremities. Patient's reflexes intact bilaterally and distally on all 4 extremities. No rashes/lesion/induration/fluctuance or signs of infection noted. Skin: Skin warm and dry. Normal skin color. Normal skin turgor. No rashes/lesions/lacerations noted. Extremities: No lower extremity edema. No calf tenderness is noted. Extremities exhibit normal range of motion and nontender. Neuro: Oriented X 3. No motor deficit. No sensory deficit. Reflexes normal. Normal steady gait. No focal neuro deficits noted. CN's II-XII intact bilaterally? Vascular: + radial pulses/+ 2 distal pedal pulses/+2 dorsalis pedis b/l. Normal cap refill. No cyanosis noted to upper extremity nails and lower extremity toes nails. Course Course Course Narrative: 9:50am - 37-year-old female with a past medical history of bilateral pulmonary embolism, DVT presenting to the ER with URI complaints over the past few days worse today. She reports that she took a COVID test on Thursday which was positive. Then she took a test the next day which was negative for COVID. Therefore she is unsure if she is positive were negative for COVID. She reports fevers up to 100-101, intermittent headaches, sore throat, dry cough with chest tightness, body aches, myalgia and fatigue. Patient had a negative COVID swab while she was in the waiting room. Plan: Will obtain a strep, chest x-ray. Provide albuterol inhaler, 100 mg of Motrin, Robitussin, 60 mg of prednisone and re-evaluate. Reevaluation(s) Reevaluation #1: - chest x-ray negative. Will DC home with symptomatic treatment instructions return if any new or worsening symptoms follow up with primary care provider. Patient understands agrees with this plan. Time: 11:13 [facility] - URI/Sore Throat Medical Records Attestation: I reviewed the patient's medical records. Lab Data Attestation: I reviewed the patient's lab results. Labs: Lab Results 07/18/22 Range/Units 07:01 COVID-19 (RACHELLE) Negative (Negative) COVID-19 Clin Com See Note Imaging Data Chest x-ray: Attestation: I personally reviewed and interpreted this imaging study as follows: Radiologist's impression: FINDINGS: The lungs are clear. There are no pleural effusions. The cardiomediastinal silhouette is normal. Thoracolumbar scoliosis is again evident. XR/XR chest 2V IMPRESSION: No acute cardiopulmonary disease. Discharge Plan Discharge Clinical Impression: Acute bronchitis with bronchospasm Patient Disposition: Home, Self-Care Instructions: Acute Bronchitis (ED) Prescriptions: New azithromycin 250 mg tablet See Rx Instructions PO .COMPLEX Qty: 6 0RF Rx Instructions: take 500 mg today (day 1), then 250 mg for 4 days (days 2-5) prednisone 20 mg tablet 40 mg PO DAILY 5 Days Qty: 10 0RF codeine-guaifenesin [Guaifenesin AC] 10-100 mg/5 mL liquid 5 ml PO Q6H PRN (Reason: cold symptoms) Qty: 120 0RF No Action metronidazole 0.75 % gel 1 appful vaginal BEDTIME 5 Days Qty: 70 0RF risperidone 0.25 mg tablet 1 tab PO BEDTIME ergocalciferol (vitamin D2) 1,250 mcg (50,000 unit) capsule 1 cap PO QWEEK bupropion HCl [Wellbutrin XL] 150 mg tablet extended release 24 hr 1 tab PO DAILY metronidazole 0.75 % gel 1 appful vaginal BEDTIME 5 Days Qty: 70 2RF Rx Instructions: Use p.r.n. for very clear symptoms of bacterial vaginosis. Referrals: [facility] [Primary Care Provider] - 5 days Stand Alone Forms: Work/School Release
[2022-07-18] MEDS: Albuterol Sulfate 90 MCG 8 GM INHALER 2 PUFF INHALE (11:02)
[2022-07-18 11:04] VITALS: PULSE 82; RESP 16; O2SAT 95
[2022-07-18 11:50] LABS: Strep A Nucleic Acid Negative (Negative)
== END 2022-07-18 11:40 | disposition home or self-care (01) ==
PROVIDERS: Physician Assistant Medical; Emergency Provider Emergency Medicine
DX: J20.9 Acute bronchitis, unspecified (principal); Z20.822 Contact with and (suspected) exposure to COVID-19; J02.9 Acute pharyngitis, unspecified; F17.210 Nicotine dependence, cigarettes, uncomplicated; Z79.899 Other long term (current) drug therapy
CPT/HCPCS: 36415; 71046; 87635; 87651; 94640; 94664; 99284

== ENCOUNTER 2022-08-03 05:43 | Emergency (ER) | payer MEDICAID, SELFPAY ==
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
[2022-08-03 05:57] VITALS: BP 199/95; PULSE 98; RESP 16; TEMP 36.6; O2SAT 97; BMI 30.9
[2022-08-03 07:18] VITALS: BP 139/94; PULSE 109; RESP 20; O2SAT 98
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
[2022-08-03 08:00] VITALS: BP 125/80; PULSE 87; RESP 16; TEMP 36.7; O2SAT 98
== END 2022-08-03 09:34 | disposition home or self-care (01) ==
PROVIDERS: Emergency Provider Emergency Medicine
DX: S02.31XA Fracture of orbital floor, right side, initial encounter for closed fracture (principal); R51.9 Headache, unspecified; Y04.2XXA Assault by strike against or bumped into by another person, initial encounter; Y93.9 Activity, unspecified; Y92.9 Unspecified place or not applicable; Y99.9 Unspecified external cause status; Z79.899 Other long term (current) drug therapy
CPT/HCPCS: 70450; 70486; 99284

== ENCOUNTER 2022-08-27 14:19 | Outpatient (REF) | payer MEDICAID, SELFPAY ==
[2022-08-28 02:26] LABS: CT PCR NOT DETECTED (Not Detect.); NG PCR NOT DETECTED (Not Detect.)
[2022-08-28 09:35] LABS: BV Int Neg Control Negative (Negative); BV Int Pos Control Positive (Positive)
== END 2022-08-27 14:20 | disposition home or self-care (01) ==
LOC: HO.LNP 14:19
PROVIDERS: Visit Provider Advanced Practice Midwife
DX: N89.8 Other specified noninflammatory disorders of vagina (principal); R10.2 Pelvic and perineal pain
CPT/HCPCS: 87480; 87491; 87510; 87591; 87660; 99212

== ENCOUNTER 2022-11-10 17:32 | Emergency (ER) | payer MEDICAID, SELFPAY ==
--- NOTE | ~2022-11-10 | CT_ITS ---
EXAMINATION: CTA CHEST PE STUDY CLINICAL INFORMATION: CP, elevated d-dimer, hx PE COMPARISON: No pertinent prior studies are available for comparison. TECHNIQUE: Prior to contrast administration, noncontrast localization images were obtained. After the administration of 65 mL of Omnipaque nonionic IV contrast, contiguous thin slice helical images were obtained through the thorax. Reformatted MIP images in the coronal and sagittal planes were obtained at the acquisition workstation. This CT examination was performed using dose optimization techniques as appropriate, variously including the following: *Automated exposure control *Adjustment of mA and/or kV according to patient size (this includes techniques or standardized protocols for targeted exams where dose is matched to indication/reason for exam; i.e. extremities or head) *Use of iterative reconstruction technique DLP: 251 mGy-cm. FINDINGS: The bolus timing on this study was acceptable for visualization of the pulmonary arterial tree. There are no intraluminal pulmonary arterial filling defects present to suggest pulmonary embolism. Dependent atelectatic changes at the lung bases. No abnormal pulmonary nodules or masses are appreciated. No significant hilar or mediastinal adenopathy. There is no evidence of pleural effusion or pneumothorax. The heart is normal in size. No evidence of ventricular septal bowing or right heart strain. Great vessels are normal. Otherwise the mediastinum is unremarkable. There is no pericardial effusion or pericardial thickening. Limited evaluation of the upper abdominal viscera demonstrates diffuse fatty infiltration of the liver.. CT/CT angio chest PE protocol IMPRESSION: 1. No evidence for pulmonary emboli. Minimal dependent atelectasis VTE: Negative
--- NOTE | ~2022-11-10 | XR_ITS ---
EXAMINATION: XR CHEST CLINICAL INFORMATION: Chest pain COMPARISON: 07/18/2022 TECHNIQUE: Frontal view of the chest was obtained. FINDINGS: No significant abnormality is noted involving the heart, lungs, mediastinum, bony thorax or soft tissues. XR/XR chest 1V IMPRESSION: Unremarkable examination.
--- NOTE | 2022-11-10 17:35 | ECG_ITS ---
Test Reason : CP Blood Pressure : / mmHG Vent. Rate : 074 BPM Atrial Rate : 074 BPM P-R Int : 152 ms QRS Dur : 086 ms QT Int : 392 ms P-R-T Axes : 018 052 015 degrees QTc Int : 435 ms Normal sinus rhythm Cannot rule out Anterior infarct , age undetermined Abnormal ECG When compared with ECG of 23-JAN-2009 23:43, No significant change was found Referred By: Generic ED Physician Electronically Signed By:EILEEN FRANK MD
[2022-11-10 17:39] VITALS: BP 145/95; PULSE 80; RESP 18; TEMP 36.8; O2SAT 99; BMI 30.9
[2022-11-10 18:00] LABS: MANUAL DIFF FLAG NO
[2022-11-10 18:04] LABS: Basophils Percent Auto 0.5 % (0-2); Eosinophils Absolute Auto 0.1 X10*3/uL (0.0-0.4); Eosinophils Percent Auto 0.8 % (0-4); Hematocrit 41.6 % (37.0-47.0); Hemoglobin 13.7 g/dl (12.0-16.0); Imm Gran Abs Auto 0.03 X10*3/uL (0.00-0.03); Imm Gran Pct Auto 0.5 % (0.0-0.4); Mean Corpuscular HGB Conc 32.9 g/dl (31.0-35.0); Mean Corpuscular Hemoglobin 29.7 pg (27.0-33.0); Mean Corpuscular Volume 90.2 fL (80.0-98.0); Mean Platelet Volume 9.9 fL (9.4-12.3); Monocytes Absolute Auto 0.6 X10*3/uL (0.1-1.2); Monocytes Percent Auto 9.7 % (2-11); Neutrophils Absolute Auto 3.6 x10*3/uL (2.0-8.3); Neutrophils Percent Auto 56.5 % (45-73); Platelet Count 281 X10*3/uL (160-400); Red Blood Count 4.61 X10*6/uL (4.20-5.50); Red Cell Distribution Width 12.6 % (11.0-16.0); White Blood Count 6.3 X10*3/uL (4.8-10.8)
[2022-11-10 18:18] LABS: D Dimer High Sensitivity 832 NG/ML
[2022-11-10 18:22] LABS: Alanine Aminotransferase 73 U/L (0-31); Albumin Level 3.9 g/dL (3.5-5.0); Alkaline Phosphatase 78 U/L (39-117); Anion Gap 13 (12-20); Aspartate Amino Transferase 35 U/L (5-31); Bilirubin Total 0.3 mg/dL (0.0-1.0); Blood Urea Nitrogen 16 mg/dL (9-16); Calcium 9.4 mg/dL (8.4-10.2); Carbon Dioxide 23 mmol/L (22-29); Chloride 107 mmol/L (96-108); Creatinine Clr Calc Pharmacy 86.3; Estimated Glomerular Filt Rate > 60; Glucose Random 127 mg/dL (60-115); Potassium 3.9 mmol/L (3.3-5.1); Sodium 139 mmol/L (135-145)
[2022-11-10 18:29] LABS: Troponin-I High Sensitivity 3.4 ng/L (<3.5-17.0)
[2022-11-10 18:45] LABS: INTERNATIONAL NORM RATIO 1.1 (0.9-1.1); Prothrombin Time 12.5 SEC (10.0-13.1)
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
[2022-11-10 18:48] LABS: Partial Thromboplastin Time 31.7 SEC (26.0-36.4)
[2022-11-10 18:57] LABS: HCG Quantitative < 2 mIU/mL
[2022-11-10] MEDS: iohexoL 350 MG/ML 100 ML INFUS..BTL IV (19:17)
[2022-11-10 19:30] LABS: Lipase 22 U/L (8-78)
== END 2022-11-10 20:48 | disposition home or self-care (01) ==
PROVIDERS: Nurse Practitioner Family; Physician Assistant Medical; Emergency Provider Emergency Medicine Emergency Medical Services; PCP Internal Medicine
DX: R09.1 Pleurisy (principal); R07.89 Other chest pain; F17.210 Nicotine dependence, cigarettes, uncomplicated; Z79.899 Other long term (current) drug therapy; Z71.6 Tobacco abuse counseling
CPT/HCPCS: 36415; 71045; 71275; 80053; 83690; 84484; 84702; 85025; 85379; 85610; 85730; 93005; 99284; Q9967

== ENCOUNTER 2022-12-03 14:17 | Outpatient (REF) | payer MEDICAID, SELFPAY ==
--- NOTE | ~2022-12-03 | US_ITS ---
EXAMINATION: US VENOUS ULTRASOUND WITH DOPPLER LOWER EXTREMITY, RIGHT CLINICAL INFORMATION: Right leg pain. COMPARISON: None TECHNIQUE: Ultrasound of the deep veins is performed from the hip to the calf with compression sonography and color and pulse Doppler assessment. Spectral analysis with color-flow imaging is performed. FINDINGS: There is normal venous compression and respiratory variation and augmented flow. The visualized common femoral vein, superficial femoral vein, profunda femoral vein, popliteal vein, and the trifurcation region shows no evidence of deep venous thrombosis. There is no significant popliteal fossa cyst. If the patient's symptoms persist, followup ultrasound in 5 days 7 days might be of value to exclude proximal propagation from a non-visualized calf vein. US/US venous duplex LE RT IMPRESSION: No DVT demonstrated in the right lower extremity.
--- NOTE | ~2022-12-03 | NM_ITS ---
PULMONARY PERFUSION ONLY STUDY: CLINICAL INDICATION: Shortness of breath. Hypercoagulable state. PROCEDURE: Following the intravenous administration of 3.2 millicuries technetium 99m MAA, images of the chest were obtained in multiple projections using a gamma scintiphotographic camera. COMPARISON: Right lower extremity DVT study done on 01/12/2023 and CTA of the chest done on 11/10/2052. PERFUSION IMAGES: No large segmental perfusion defects or other perfusion abnormalities are noted. NM/NM pul perfusion IMPRESSION: Based on perfusion only modified PIOPED 2 criteria, pulmonary thromboembolism is considered absent.
== END 2022-12-03 14:18 | disposition home or self-care (01) ==
LOC: HO.US 14:17
PROVIDERS: PCP Internal Medicine; Visit Provider Internal Medicine
DX: R79.89 Other specified abnormal findings of blood chemistry (principal); D68.59 Other primary thrombophilia
CPT/HCPCS: 78580; 93971; A9540

== ENCOUNTER 2022-12-05 16:55 | Emergency (ER) | payer MEDICAID, SELFPAY ==
--- NOTE | ~2022-12-05 | CT_ITS ---
EXAMINATION: CT ABDOMEN AND PELVIS WITHOUT CONTRAST CLINICAL INFORMATION: pt c abd pain abnormal liver enzymes . COMPARISON: 11/10/2022 CT scan of the chest. TECHNIQUE: Multidetector volumetric imaging was performed from the superior aspect of the liver through the pubic symphysis without contrast per request. Sagittal and coronal reformatted images were obtained on the technologist workstation. This CT examination was performed using dose optimization techniques as appropriate, variously including the following: *Automated exposure control *Adjustment of mA and/or kV according to patient size (this includes techniques or standardized protocols for targeted exams where dose is matched to indication/reason for exam; i.e. extremities or head) *Use of iterative reconstruction technique DLP: 690 mGy-cm. FINDINGS: LUNG BASES: Linear atelectatic changes at the right lung base LIVER, GALLBLADDER, BILIARY TREE: Diffuse fatty infiltration liver is again noted with mild focal fatty sparing adjacent to the gallbladder fossa. No focal hepatic lesion nor biliary ductal dilatation. The gallbladder is unremarkable with no evidence of radiopaque gallstones, gallbladder wall thickening, or obvious pericholecystic inflammatory changes. PANCREAS: Unremarkable. SPLEEN: Unremarkable. ADRENAL GLANDS: Unremarkable. KIDNEYS AND URETERS: The kidneys are normal in size, shape, and attenuation. No hydronephrosis, hydroureter, or calculi seen. No perinephric stranding. BLADDER: Unremarkable. GASTROINTESTINAL TRACT: The small and large bowel are unremarkable. The appendix is unremarkable. ABDOMINAL WALL: Small fat-containing umbilical hernia LYMPHOVASCULAR STRUCTURES: No lymphadenopathy. The aorta is unremarkable.. PELVIC VISCERA: Retroverted and retroflexed uterus. Physiologic changes in the adnexa OSSEUS STRUCTURES: Mild convex right thoracolumbar curve CT/CT abdomen pelvis wo IV con IMPRESSION: Diffuse fatty infiltration of the liver. No acute intra-abdominal process seen.
[2022-12-05 17:35] VITALS: BP 114/76; PULSE 86; RESP 18; TEMP 36.8; O2SAT 100; BMI 31.1
--- NOTE | 2022-12-05 17:57 | ED.ABDPAIN ---
HPI - Abdominal Pain General Chief Complaint: Abdominal Pain <PRINCESS Bright - Last Filed: 12/05/22 17:59> Stated Complaint: Abdmoinal Pain <PRINCESS Bright - Last Filed: 12/05/22 17:59> Time Seen by Provider: 12/06/22 00:29 <PRINCESS Bright - Last Filed: 12/05/22 17:59> Source: patient <Chaka Rubio MD - Last Filed: 12/06/22 01:01> Mode of arrival: ambulatory <Chaka Rubio MD - Last Filed: 12/06/22 01:01> Limitations: no limitations <Chaka Rubio MD - Last Filed: 12/06/22 01:01> History of Present Illness HPI narrative: 37-year-old female presents with right-sided abdominal pain. Patient is currently on antibiotics for a vaginal infection. Her symptoms started approximately 3 days ago. She denies any nausea vomiting, diarrhea. She does report some dark urine color today but no urinary urgency, frequency or dysuria. She denies any active vaginal bleeding. Patient has right-sided abdominal pain is intermittent. She describes it as sharp in nature. The pain can sometimes radiate to her back. There is no clear relieving or exacerbating features. Patient has had similar symptoms when she has been on antibiotics in the past. She also has been told that recently her liver function tests elevated. <Chaka Rubio MD - Last Filed: 12/06/22 01:01> Related Data Home Medications: Home Medications Medication Instructions Recorded Confirmed bupropion HCl 150 mg 24 hr tablet, 1 tab PO DAILY 12/30/21 04/22/22 extended release (Wellbutrin XL) ergocalciferol (vitamin D2) 1,250 1 cap PO QWEEK 12/30/21 04/22/22 mcg (50,000 unit) capsule risperidone 0.25 mg tablet 1 tab PO BEDTIME 12/30/21 04/22/22 Previous Rx's Medication Instructions Recorded metronidazole 0.75 % (37.5 mg/5 1 appful vaginal BEDTIME 5 days 04/22/22 gram) vaginal gel #70 grams azithromycin 250 mg tablet See Rx Instructions PO .COMPLEX #6 07/18/22 tabs codeine 10 mg-guaifenesin 100 mg/5 5 ml PO Q6H PRN cold symptoms #120 09/23/22 mL oral liquid (Guaifenesin AC) mL prednisone 20 mg tablet 40 mg PO DAILY 5 days #10 tabs 07/18/22 metronidazole 0.75 % (37.5 mg/5 1 appful vaginal BEDTIME 5 days 07/29/22 gram) vaginal gel #70 grams amoxicillin 500 mg-potassium 1 tab PO BID #20 tabs 08/03/22 clavulanate 125 mg tablet (Augmentin) metronidazole 500 mg tablet 500 mg PO BID 7 days #14 tabs 08/29/22 <PRINCESS Bright - Last Filed: 12/05/22 17:59> Allergies/Adverse Reactions: Allergies Allergy/AdvReac Type Severity Reaction Status Date / Time No Known Allergies Allergy Verified 08/27/22 14:06 [No Known Allergies*] <PRINCESS Bright - Last Filed: 12/05/22 17:59> Review of Systems Review of Systems CONSTITUTIONAL: Denies weight loss, fever and chills. HEENT: Denies changes in vision and hearing. RESPIRATORY: Denies SOB and cough. CV: Denies palpitations no CP. GI: Denies nausea, vomiting and diarrhea. : Denies dysuria and urinary frequency. MSK: Denies myalgia and joint pain. SKIN: Denies rash and pruritus. NEUROLOGICAL: Denies headache and syncope. PSYCHIATRIC: Denies recent changes in mood. Denies anxiety and depression. All other ROS are negative unless in HPI <Chaka Rubio MD - Last Filed: 12/06/22 01:01> [facility] Past Medical History Medical History: Medical History Abnormal Pap smear of cervix Bilateral pulmonary embolism DVT (deep venous thrombosis) PE (pulmonary thromboembolism) Pulmonary embolism <PRINCESS Bright - Last Filed: 12/05/22 17:59> Surgical History: Surgical History Hx of foot surgery Hx of tubal ligation <PRINCESS Bright - Last Filed: 12/05/22 17:59> Family History Family History: Family History Maternal Aunt Breast cancer Brother Diabetes Sister Diabetes Maternal Aunt Metastasis from esophageal cancer Father Colon cancer <PRINCESS Bright - Last Filed: 12/05/22 17:59> Social History Social History: Social History Household Members: Children Housing: Apartment Are you a primary lead caregiver to a significant other at home: No Do you presently have visiting nurse or other home services: No Alcohol intake: current Patient Tobacco Use Status: Current everyday Tobacco user Tobacco use type: Cigarette Advance Directives: No Advance Directives Information Provided: No service: No Current occupational status: unemployed Gender identity: Female <PRINCESS Bright - Last Filed: 12/05/22 17:59> Physical Exam ED Vital Signs: Vital Signs - 24 hr 12/05/22 17:35 12/06/22 00:43 Temperature 98.3 F 98.4 F Pulse Rate 86 67 Respiratory Rate 18 18 Blood Pressure 114/76 117/80 Pulse Oximetry 100 98 Oxygen Delivery Method Room Air Room Air BMI result Body Mass Index 31.1 <PRINCESS Bright - Last Filed: 12/05/22 17:59> Vital Signs - 24 hr 12/05/22 17:35 12/06/22 00:43 Temperature 98.3 F 98.4 F Pulse Rate 86 67 Respiratory Rate 18 18 Blood Pressure 114/76 117/80 Pulse Oximetry 100 98 Oxygen Delivery Method Room Air Room Air BMI result Body Mass Index 31.1 GEN: Well developed, no acute distress, alert, oriented HEENT: Normocephalic, atraumatic, normal external ears, nose appears normal, no oropharyngeal edema or exudates Eyes: Normal to appearance Neck: Supple, no lymphadenopathy Respiratory: Talks in complete sentences, no respiratory distress, clear to auscultation bilaterally Cardiovascular: Regular rate and rhythm, no murmurs rubs or gallops Abdomen: Soft, nontender, nondistended, no guarding, no rebound, negative Desai sign or McBurney's point tenderness Back: No CVA tenderness Extremities: No clubbing cyanosis or edema Neurologic: No focal neurologic deficits, cranial nerves 2-12 intact, strength is 5/5 bilaterally, gait normal Skin: No rash <Chaka Rubio MD - Last Filed: 12/06/22 01:01> Course Course Course Narrative: RME-18PM - 37-year-old female presenting to the ER with complaints of right upper quadrant abdominal pain after she had abnormal labs of elevated liver enzymes by her primary care provider. Reports associated nausea. Denies any fevers or vomiting or diarrhea. Denies any other symptoms related to this. Plan: Labs, CT scan abdomen pelvis without IV contrast ordered at this time. Patient sent to the waiting room to be evaluated the ED. <PRINCESS Bright - Last Filed: 12/05/22 17:59> Reevaluation(s) Reevaluation #1: Lab work and CT scan results were discussed with the patient. She is aware her liver function test was slightly increased from previous. Her CT scan showed diffuse fatty liver infiltrates. This is discussed with the patient as well. Patient will likely benefit from a gastroenterology referral. Obtain a urine sample to make sure that her right-sided pain is not due to an ascending urinary tract. <Chaka Rubio MD - Last Filed: 12/06/22 01:01> Time: 00:40 <Chaka Rubio MD - Last Filed: 12/06/22 01:01> Reevaluation #2: Urinalysis currently back. There is no evidence of infection. We discussed all discharge instructions. She will try to abstain from alcohol to reduce the inflammation in liver and fatty liver changes. She was also referred to gastroenterology in to her primary care provider for repeat testing. <Chaka Rubio MD - Last Filed: 12/06/22 01:01> Time: 01:00 <Chaka Rubio MD - Last Filed: 12/06/22 01:01> Medical Decision Making Medical Decision Making MDM Narrative: 37-year-old female presents with right-sided abdominal pain for 3 days. Her examination was benign with no CVA tenderness. Negative Desai sign. No rebound or guarding. Will order laboratory tests, imaging studies and urinalysis. Will re-evaluate following workup. <Chaka Rubio MD - Last Filed: 12/06/22 01:01> Differential Diagnosis Differential Diagnoses: The differential diagnosis associated with the presentation includes (Biliary colic, abdominal pain, cholecystitis, cholelithiasis, liver inflammation, pyelonephritis, musculoskeletal pain, antibiotic adverse reaction) <Chaka Rubio MD - Last Filed: 12/06/22 01:01> Admission/Observation Consideration of admission/observation: Escalation of care including admission/observation considered <Chaka Rubio MD - Last Filed: 12/06/22 01:01> Lab Data MDM Lab Attestation statement: I reviewed the patient's lab results. <Chaka Rubio MD - Last Filed: 12/06/22 01:01> Result Diagrams: 12/05/22 18:23 12/05/22 18:23 <PRINCESS Bright - Last Filed: 12/05/22 17:59> Labs: Lab Results 12/05/22 12/05/22 12/05/22 Range/Units 18:23 18:23 18:23 WBC 9.0 (4.8-10.8) X10*3/uL RBC 4.60 (4.20-5.50) X10*6/uL Hgb 13.7 (12.0-16.0) g/dl Hct 42.0 (37.0-47.0) % MCV 91.3 (80.0-98.0) fL MCH 29.8 (27.0-33.0) pg MCHC 32.6 (31.0-35.0) g/dl RDW 12.5 (11.0-16.0) % Plt Count 284 (160-400) X10*3/uL MPV 9.7 (9.4-12.3) fL Absolute Nucleated RBC 0.000 (0.0-0.012) X10*3/uL Nucleated RBC % (auto) 0.0 (0.0-0.2) /100WBC Sodium 138 (135-145) mmol/L Potassium 4.2 (3.3-5.1) mmol/L Chloride 106 (96-108) mmol/L Carbon Dioxide 26 (22-29) mmol/L Anion Gap 10 L (12-20) BUN 13 (9-16) mg/dL Creatinine 0.74 (0.5-1.4) mg/dL Estim Creat Clear Calc 104.1 Estimated GFR > 60 Random Glucose 171 H (60-115) mg/dL Calcium 9.3 (8.4-10.2) mg/dL Magnesium 1.8 (1.6-2.6) mg/dL Total Bilirubin 0.4 (0.0-1.0) mg/dL Direct Bilirubin < 0.2 (0.0-0.5) mg/dL AST 116 H (5-31) U/L ALT 167 H (0-31) U/L Alkaline Phosphatase 80 (39-117) U/L Total Protein 7.0 (6.5-8.0) g/dL Albumin 4.0 (3.5-5.0) g/dL Lipase 22 (8-78) U/L Beta HCG, Quant < 2 mIU/mL Urine Color Urine Appearance Urine pH (5.0-9.0) Ur Specific [place] (1.005-1.025) Urine Protein (Neg-Trace) mg/dL Urine Glucose (UA) (Negative) mg/dL Urine Ketones (Negative) mg/dL Urine Blood (Negative) Urine Nitrite (Negative) Ur Leukocyte Esterase (Negative) Urine RBC (0-2) /HPF Urine WBC (0-5) /HPF Ur Squamous Epith Cells (0-2) /HPF Urine Bacteria (None Seen) Hyaline Casts (0-2) /LPF Urine Test (NEGATIVE) 12/06/22 12/06/22 Range/Units 00:41 00:42 WBC (4.8-10.8) X10*3/uL RBC (4.20-5.50) X10*6/uL Hgb (12.0-16.0) g/dl Hct (37.0-47.0) % MCV (80.0-98.0) fL MCH (27.0-33.0) pg MCHC (31.0-35.0) g/dl RDW (11.0-16.0) % Plt Count (160-400) X10*3/uL MPV (9.4-12.3) fL Absolute Nucleated RBC (0.0-0.012) X10*3/uL Nucleated RBC % (auto) (0.0-0.2) /100WBC Sodium (135-145) mmol/L Potassium (3.3-5.1) mmol/L Chloride (96-108) mmol/L Carbon Dioxide (22-29) mmol/L Anion Gap (12-20) BUN (9-16) mg/dL Creatinine (0.5-1.4) mg/dL Estim Creat Clear Calc Estimated GFR Random Glucose (60-115) mg/dL Calcium (8.4-10.2) mg/dL Magnesium (1.6-2.6) mg/dL Total Bilirubin (0.0-1.0) mg/dL Direct Bilirubin (0.0-0.5) mg/dL AST (5-31) U/L ALT (0-31) U/L Alkaline Phosphatase (39-117) U/L Total Protein (6.5-8.0) g/dL Albumin (3.5-5.0) g/dL Lipase (8-78) U/L Beta HCG, Quant mIU/mL Urine Color Yellow Urine Appearance Clear Urine pH 5.5 (5.0-9.0) Ur Specific [place] 1.025 (1.005-1.025) Urine Protein Negative (Neg-Trace) mg/dL Urine Glucose (UA) Negative (Negative) mg/dL Urine Ketones Negative (Negative) mg/dL Urine Blood Negative (Negative) Urine Nitrite Negative (Negative) Ur Leukocyte Esterase Trace H (Negative) Urine RBC 0-2 (0-2) /HPF Urine WBC 0-5 (0-5) /HPF Ur Squamous Epith Cells 3-5 (0-2) /HPF Urine Bacteria None Seen (None Seen) Hyaline Casts 0-2 (0-2) /LPF Urine Test NEGATIVE (NEGATIVE) <PRINCESS Bright - Last Filed: 12/05/22 17:59> Lab Results 12/05/22 12/05/22 12/05/22 Range/Units 18:23 18:23 18:23 WBC 9.0 (4.8-10.8) X10*3/uL RBC 4.60 (4.20-5.50) X10*6/uL Hgb 13.7 (12.0-16.0) g/dl Hct 42.0 (37.0-47.0) % MCV 91.3 (80.0-98.0) fL MCH 29.8 (27.0-33.0) pg MCHC 32.6 (31.0-35.0) g/dl RDW 12.5 (11.0-16.0) % Plt Count 284 (160-400) X10*3/uL MPV 9.7 (9.4-12.3) fL Absolute Nucleated RBC 0.000 (0.0-0.012) X10*3/uL Nucleated RBC % (auto) 0.0 (0.0-0.2) /100WBC Sodium 138 (135-145) mmol/L Potassium 4.2 (3.3-5.1) mmol/L Chloride 106 (96-108) mmol/L Carbon Dioxide 26 (22-29) mmol/L Anion Gap 10 L (12-20) BUN 13 (9-16) mg/dL Creatinine 0.74 (0.5-1.4) mg/dL Estim Creat Clear Calc 104.1 Estimated GFR > 60 Random Glucose 171 H (60-115) mg/dL Calcium 9.3 (8.4-10.2) mg/dL Magnesium 1.8 (1.6-2.6) mg/dL Total Bilirubin 0.4 (0.0-1.0) mg/dL Direct Bilirubin < 0.2 (0.0-0.5) mg/dL AST 116 H (5-31) U/L ALT 167 H (0-31) U/L Alkaline Phosphatase 80 (39-117) U/L Total Protein 7.0 (6.5-8.0) g/dL Albumin 4.0 (3.5-5.0) g/dL Lipase 22 (8-78) U/L Beta HCG, Quant < 2 mIU/mL Urine Color Urine Appearance Urine pH (5.0-9.0) Ur Specific [place] (1.005-1.025) Urine Protein (Neg-Trace) mg/dL Urine Glucose (UA) (Negative) mg/dL Urine Ketones (Negative) mg/dL Urine Blood (Negative) Urine Nitrite (Negative) Ur Leukocyte Esterase (Negative) Urine RBC (0-2) /HPF Urine WBC (0-5) /HPF Ur Squamous Epith Cells (0-2) /HPF Urine Bacteria (None Seen) Hyaline Casts (0-2) /LPF Urine Test (NEGATIVE) 12/06/22 12/06/22 Range/Units 00:41 00:42 WBC (4.8-10.8) X10*3/uL RBC (4.20-5.50) X10*6/uL Hgb (12.0-16.0) g/dl Hct (37.0-47.0) % MCV (80.0-98.0) fL MCH (27.0-33.0) pg MCHC (31.0-35.0) g/dl RDW (11.0-16.0) % Plt Count (160-400) X10*3/uL MPV (9.4-12.3) fL Absolute Nucleated RBC (0.0-0.012) X10*3/uL Nucleated RBC % (auto) (0.0-0.2) /100WBC Sodium (135-145) mmol/L Potassium (3.3-5.1) mmol/L Chloride (96-108) mmol/L Carbon Dioxide (22-29) mmol/L Anion Gap (12-20) BUN (9-16) mg/dL Creatinine (0.5-1.4) mg/dL Estim Creat Clear Calc Estimated GFR Random Glucose (60-115) mg/dL Calcium (8.4-10.2) mg/dL Magnesium (1.6-2.6) mg/dL Total Bilirubin (0.0-1.0) mg/dL Direct Bilirubin (0.0-0.5) mg/dL AST (5-31) U/L ALT (0-31) U/L Alkaline Phosphatase (39-117) U/L Total Protein (6.5-8.0) g/dL Albumin (3.5-5.0) g/dL Lipase (8-78) U/L Beta HCG, Quant mIU/mL Urine Color Yellow Urine Appearance Clear Urine pH 5.5 (5.0-9.0) Ur Specific [place] 1.025 (1.005-1.025) Urine Protein Negative (Neg-Trace) mg/dL Urine Glucose (UA) Negative (Negative) mg/dL Urine Ketones Negative (Negative) mg/dL Urine Blood Negative (Negative) Urine Nitrite Negative (Negative) Ur Leukocyte Esterase Trace H (Negative) Urine RBC 0-2 (0-2) /HPF Urine WBC 0-5 (0-5) /HPF Ur Squamous Epith Cells 3-5 (0-2) /HPF Urine Bacteria None Seen (None Seen) Hyaline Casts 0-2 (0-2) /LPF Urine Test NEGATIVE (NEGATIVE) <Chaka Rubio MD - Last Filed: 12/06/22 01:01> Independent Interpretation I performed an independent interpretation of an: CT Scan (Diffuse fatty liver infiltration, no other significant acute abnormalities noted) <Chaka Rubio MD - Last Filed: 12/06/22 01:01> Radiology Impression Discussion of test interpretation with radiology: I have reviewed the radiologist's reading. (IMPRESSION: Diffuse fatty infiltration of the liver. No acute intra-abdominal process seen. Dictated By:Herbert Ashton MDSigned By:<Electronically signed by Herbert Ashton MD in [place]>12/05/[id number]) <Chaka Rubio MD - Last Filed: 12/06/22 01:01> External Record Review External record reviewed: Office record (OBGYN 08/27/2022) <Chaka Rubio MD - Last Filed: 12/06/22 01:01> Tests considered The following testing was considered but not selected: Ultrasound <Chaka Rubio MD - Last Filed: 12/06/22 01:01> Prescription Management I considered prescription management with: Pain Medication <Chaka Rubio MD - Last Filed: 12/06/22 01:01> Discharge Plan Discharge Clinical Impression: Right sided abdominal pain, Elevated LFTs, Fatty liver <PRINCESS Bright - Last Filed: 12/05/22 17:59> Patient Disposition: Home, Self-Care <PRINCESS Bright - Last Filed: 12/05/22 17:59> Instructions: Non-Alcoholic Fatty Liver Disease (ED), Abdominal Pain (ED) <PRINCESS Bright - Last Filed: 12/05/22 17:59> Prescriptions: No Action metronidazole 0.75 % (37.5mg/5 gram) gel 1 appful vaginal BEDTIME 5 Days Qty: 70 0RF metronidazole 500 mg tablet 500 mg PO BID 7 Days Qty: 14 0RF Rx Instructions: Take with food, Avoid alcohol and vinegar products risperidone 0.25 mg tablet 1 tab PO BEDTIME ergocalciferol (vitamin D2) 1,250 mcg (50,000 unit) capsule 1 cap PO QWEEK bupropion HCl [Wellbutrin XL] 150 mg tablet extended release 24 hr 1 tab PO DAILY azithromycin 250 mg tablet See Rx Instructions PO .COMPLEX Qty: 6 0RF Rx Instructions: take 500 mg today (day 1), then 250 mg for 4 days (days 2-5) prednisone 20 mg tablet 40 mg PO DAILY 5 Days Qty: 10 0RF codeine-guaifenesin [Guaifenesin AC] 10-100 mg/5 mL liquid 5 ml PO Q6H PRN (Reason: cold symptoms) Qty: 120 0RF amoxicillin-pot clavulanate [Augmentin] 500-125 mg tablet 1 tab PO BID Qty: 20 0RF metronidazole 0.75 % gel 1 appful vaginal BEDTIME 5 Days Qty: 70 2RF Rx Instructions: Use p.r.n. for very clear symptoms of bacterial vaginosis. <PRINCESS Bright - Last Filed: 12/05/22 17:59> Referrals: Yolanda Aaron MD [Primary Care Provider] - Teddy Mosley [Physician] - 1 week <PRINCESS Bright - Last Filed: 12/05/22 17:59>
[2022-12-05 18:29] LABS: Hemoglobin 13.7 g/dl (12.0-16.0); Mean Corpuscular HGB Conc 32.6 g/dl (31.0-35.0); Mean Corpuscular Hemoglobin 29.8 pg (27.0-33.0); Mean Corpuscular Volume 91.3 fL (80.0-98.0); Mean Platelet Volume 9.7 fL (9.4-12.3); Platelet Count 284 X10*3/uL (160-400); Red Cell Distribution Width 12.5 % (11.0-16.0)
[2022-12-05 18:43] LABS: Alanine Aminotransferase 167 U/L (0-31); Alkaline Phosphatase 80 U/L (39-117); Anion Gap 10 (12-20); Aspartate Amino Transferase 116 U/L (5-31); Bilirubin Direct < 0.2 mg/dL (0.0-0.5); Bilirubin Total 0.4 mg/dL (0.0-1.0); Blood Urea Nitrogen 13 mg/dL (9-16); Calcium 9.3 mg/dL (8.4-10.2); Carbon Dioxide 26 mmol/L (22-29); Chloride 106 mmol/L (96-108); Creatinine Clr Calc Pharmacy 104.1; Estimated Glomerular Filt Rate > 60; Glucose Random 171 mg/dL (60-115); Lipase 22 U/L (8-78); Potassium 4.2 mmol/L (3.3-5.1); Sodium 138 mmol/L (135-145)
[2022-12-05 18:48] LABS: Magnesium 1.8 mg/dL (1.6-2.6)
[2022-12-05 18:53] LABS: HCG Quantitative < 2 mIU/mL
[2022-12-06 00:43] VITALS: BP 117/80; PULSE 67; RESP 18; TEMP 36.9; O2SAT 98
[2022-12-06 00:52] LABS: UPreg QC Valid YES; Urine Pregnancy NEGATIVE (NEGATIVE)
[2022-12-06 00:53] LABS: Appearance Urine Clear; Color Urine Yellow; Glucose Urine UA Negative (Negative); Leukocyte Esterase Urine Trace (Negative); Nitrite Urine Negative (Negative); PH 5.5 (5.0-9.0); Specific Gravity - Urine 1.025 (1.005-1.025); UMIC TRIGGER UACC YES; Urine Blood Negative (Negative); Urine Ketones Negative (Negative); Urine Protein Negative (Neg-Trace)
[2022-12-06 00:54] LABS: Bacteria Urine None Seen (None Seen); Hyaline Casts Urine 0-2 /LPF (0-2); RBC Urine 0-2 /HPF (0-2); WBC Urine 0-5 /HPF (0-5)
--- NOTE | 2022-12-06 01:10 | PC.NURSE ---
Pt. sitting on bed, no distress noted. Pt. awaiting d/c.
== END 2022-12-06 01:12 | disposition home or self-care (01) ==
PROVIDERS: Physician Assistant Medical; Emergency Provider Emergency Medicine; PCP Internal Medicine
DX: K76.0 Fatty (change of) liver, not elsewhere classified (principal); R10.31 Right lower quadrant pain; R79.89 Other specified abnormal findings of blood chemistry; Z79.899 Other long term (current) drug therapy
CPT/HCPCS: 36415; 74176; 80048; 80076; 81001; 81025; 83690; 83735; 84702; 85027; 99284

== ENCOUNTER 2022-12-25 13:27 | Outpatient (REF) | payer MEDICAID, SELFPAY ==
--- NOTE | ~2022-12-25 | MM_ITS ---
EXAMINATION: MM DIAGNOSTIC DIGITAL BREAST TOMOSYNTHESIS, BILATERAL CLINICAL INFORMATION: 37-year-old, due for yearly. Follow-up probable benign calcifications bilateral breasts. Family history premenopausal breast cancer, aunt at age 29. TC score 11%. Personal history benign biopsies: -Left ultrasound biopsy 08/27/2018 (fibroadenoma). -Left stereotactic biopsy 10/24/2020 (fibrocystic changes and calcifications). -Right ultrasound biopsy 10/24/2020 (fibroadenoma). COMPARISON: Mammography: 12/25/2021, 04/19/2021, 10/24/2020, 10/12/2020 (diagnostic with magnification views), 08/23/2018 TECHNIQUE: Digital breast tomosynthesis is performed in both the craniocaudal and mediolateral oblique views along with computer-aided detection (CAD). Synthesized 2D images are generated from the tomosynthesis. Additional views are provided: Left CC, left MLO, bilateral magnification CC, bilateral magnification ML. FINDINGS: The breasts are heterogeneously dense, which may obscure small masses (ACR BI-RADS breast composition Category c). The parenchymal pattern is similar to prior studies. There is no significant mass. Known fibroadenoma posterior medial right breast with overlying biopsy clip marker is again seen. There is stable smaller nodularity central and inner left breast. The axilla are unremarkable. The skin contours are smooth. The bilateral calcifications for follow-up are similar to prior diagnostic studies. These are predominantly central right breast and central upper outer left breast. There are now considered to be benign. MM/MM tomosynthesis diagnostic BI IMPRESSION: -No significant changes from prior exams. -The bilateral calcifications for follow-up surveillance are now considered to be benign. ASSESSMENT: BI-RADS 2: Benign RECOMMENDATION: Routine annual mammography screening. This patient's information was entered into a reminder system with a target due date for their next mammogram.
== END 2022-12-25 13:28 | disposition home or self-care (01) ==
LOC: HO.MAMMO 13:27
PROVIDERS: PCP Internal Medicine; Visit Provider Internal Medicine
DX: R92.1 Mammographic calcification found on diagnostic imaging of breast (principal)
CPT/HCPCS: 77062; 77066

== ENCOUNTER 2023-03-09 22:55 | Emergency (ER) | payer MEDICAID, SELFPAY ==
[2023-03-09 22:58] VITALS: BP 142/91; PULSE 86; RESP 18; TEMP 36.8; O2SAT 98; BMI 24.2
[2023-03-09 23:11] LABS: MANUAL DIFF FLAG NO
[2023-03-09 23:12] LABS: Basophils Percent Auto 0.4 % (0-2); Eosinophils Absolute Auto 0.1 X10*3/uL (0.0-0.4); Eosinophils Percent Auto 0.7 % (0-4); Hematocrit 42.6 % (37.0-47.0); Hemoglobin 13.9 g/dl (12.0-16.0); Imm Gran Abs Auto 0.03 X10*3/uL (0.00-0.03); Imm Gran Pct Auto 0.3 % (0.0-0.4); Lymphocytes Absolute Auto 2.2 X10*3/uL (1.2-4.9); Lymphocytes Percent Auto 24.5 % (20-40); Mean Corpuscular HGB Conc 32.6 g/dl (31.0-35.0); Mean Corpuscular Hemoglobin 29.1 pg (27.0-33.0); Mean Corpuscular Volume 89.1 fL (80.0-98.0); Monocytes Absolute Auto 0.8 X10*3/uL (0.1-1.2); Monocytes Percent Auto 8.9 % (2-11); Neutrophils Percent Auto 65.2 % (45-73); Platelet Count 277 X10*3/uL (160-400); Red Blood Count 4.78 X10*6/uL (4.20-5.50); Red Cell Distribution Width 12.3 % (11.0-16.0); White Blood Count 9.1 X10*3/uL (4.8-10.8)
[2023-03-09 23:28] LABS: Alanine Aminotransferase 69 U/L (0-31); Albumin Level 4.1 g/dL (3.5-5.0); Alkaline Phosphatase 68 U/L (39-117); Anion Gap 11 (12-20); Aspartate Amino Transferase 42 U/L (5-31); Bilirubin Direct 0.1 mg/dL (0.0-0.5); Bilirubin Total 0.3 mg/dL (0.0-1.0); Blood Urea Nitrogen 16 mg/dL (9-16); Calcium 9.4 mg/dL (8.4-10.2); Carbon Dioxide 23 mmol/L (22-29); Chloride 108 mmol/L (96-108); Creatinine Clr Calc Pharmacy 83.8; Estimated Glomerular Filt Rate > 60; Glucose Random 112 mg/dL (60-115); Lipase 22 U/L (8-78); Potassium 4.1 mmol/L (3.3-5.1); Sodium 138 mmol/L (135-145); Total Protein 7.1 g/dL (6.5-8.0)
[2023-03-10 02:35] VITALS: BP 128/88; PULSE 71; RESP 16; TEMP 36.9; O2SAT 100
[2023-03-10 02:58] LABS: Appearance Urine Clear; Color Urine Yellow; Glucose Urine UA Negative (Negative); Leukocyte Esterase Urine Negative (Negative); Nitrite Urine Negative (Negative); PH 5.5 (5.0-9.0); Specific Gravity - Urine 1.025 (1.005-1.025); Urine Blood Negative (Negative); Urine Ketones Negative (Negative); Urine Protein Negative (Neg-Trace)
[2023-03-10 03:00] LABS: Urine Pregnancy NEGATIVE (NEGATIVE)
[2023-03-10 03:01] LABS: UPreg QC Valid YES
--- NOTE | 2023-03-10 03:37 | ED.ABDPAIN ---
HPI - Abdominal Pain General Chief Complaint: Abdominal Pain Stated Complaint: liver pain Time Seen by Provider: 03/10/23 03:28 Source: patient Mode of arrival: ambulatory Limitations: no limitations History of Present Illness HPI narrative: Patient has fatty liver disease drinks alcohol almost every week comes here as has chronic right upper quadrant pain moderate check her liver no vomiting no nausea no fever no abdominal distension patient just had a CT scan 12/18 which showed fatty liver no gallstones Related Data Home Medications Medication Instructions Recorded Confirmed bupropion HCl 150 mg 24 hr tablet, 1 tab PO DAILY 12/30/21 12/30/22 extended release (Wellbutrin XL) ergocalciferol (vitamin D2) 1,250 1 cap PO QWEEK 12/30/21 12/30/22 mcg (50,000 unit) capsule quetiapine 200 mg tablet 1 tab PO BEDTIME 12/30/22 12/30/22 quetiapine 50 mg tablet 1 tab PO DAILY 12/30/22 12/30/22 sertraline 100 mg tablet 1 tab PO QAM 12/30/22 12/30/22 Allergies Allergy/AdvReac Type Severity Reaction Status Date / Time No Known Allergies Allergy Verified 08/27/22 14:06 [No Known Allergies*] Review of Systems Review of Systems Yes all other systems are reviewed and are negative PMFSH Past Medical History Medical History Abnormal Pap smear of cervix Bilateral pulmonary embolism DVT (deep venous thrombosis) PE (pulmonary thromboembolism) Pulmonary embolism Surgical History Hx of foot surgery Hx of tubal ligation Family History Family History Maternal Aunt Breast cancer Brother Diabetes Sister Diabetes Maternal Aunt Metastasis from esophageal cancer Father Colon cancer Social History Social History Household Members: Children Housing: Apartment Are you a primary child care supervisor to a significant other at home: No Do you presently have visiting nurse or other home services: No Alcohol intake: current Alcohol intake frequency: a few times a week Patient Tobacco Use Status: Current everyday Tobacco user Tobacco use type: Cigarette Smoked in Last 30 Days: Yes Use of substances other than those prescribed or required for medical reasons: No Advance Directives: No Advance Directives Information Provided: Yes Patient : No service: No Current occupational status: unemployed Gender identity: Female Physical Exam ED Vital Signs: Vital Signs - 24 hr 03/09/23 22:58 03/10/23 02:35 Temperature 98.3 F 98.4 F Pulse Rate 86 71 Respiratory Rate 18 16 Blood Pressure 142/91 H 128/88 Pulse Oximetry 98 100 Oxygen Delivery Method Room Air Room Air BMI result Body Mass Index 24.2 Appearance: Alert. Oriented X3. No acute distress. Eyes: No pallor or icterus ENT: Pharynx normal. Oral Mucosa moist Neck: Normal inspection. Neck supple. CVS: Normal heart rate and rhythm. Pulses normal. Respiratory: No respiratory distress. Equal air entry bilateral, no wheezing/rales/rhonchi Abdomen: Soft , mild tenderness right upper quadrant no rebound tenderness or guarding. Bowel sounds are present, no mass palpable, no CVA tenderness Skin: Skin warm and dry. Normal skin color. Normal skin turgor. Extremities: No lower extremity edema. No calf tenderness Neuro: Oriented X 3. Medical Decision Making Medical Decision Making MDM Narrative: Patient with fatty liver disease advised to decrease alcohol/carbide at advised exercise Lab Data MDM Lab Attestation statement: I reviewed the patient's lab results. 03/09/23 23:06 03/09/23 23:06 Labs: Lab Results 03/09/23 03/09/23 03/10/23 Range/Units 23:06 23:06 02:46 WBC 9.1 (4.8-10.8) X10*3/uL RBC 4.78 (4.20-5.50) X10*6/uL Hgb 13.9 (12.0-16.0) g/dl Hct 42.6 (37.0-47.0) % MCV 89.1 (80.0-98.0) fL MCH 29.1 (27.0-33.0) pg MCHC 32.6 (31.0-35.0) g/dl RDW 12.3 (11.0-16.0) % Plt Count 277 (160-400) X10*3/uL MPV 10.0 (9.4-12.3) fL Immature Gran % (Auto) 0.3 (0.0-0.4) % Neut % (Auto) 65.2 (45-73) % Lymph % (Auto) 24.5 (20-40) % Sherman % (Auto) 8.9 (2-11) % Eos % (Auto) 0.7 (0-4) % Baso % (Auto) 0.4 (0-2) % Lymph # (Auto) 2.2 (1.2-4.9) X10*3/uL Sherman # (Auto) 0.8 (0.1-1.2) X10*3/uL Eos # (Auto) 0.1 (0.0-0.4) X10*3/uL Baso # (Auto) 0.0 (0.0-0.2) X10*3/uL Abs Immat Gran (auto) 0.03 (0.00-0.03) X10*3/uL Absolute Neuts (auto) 6.0 (2.0-8.3) x10*3/uL Absolute Nucleated RBC 0.000 (0.0-0.012) X10*3/uL Nucleated RBC % (auto) 0.0 (0.0-0.2) /100WBC Sodium 138 (135-145) mmol/L Potassium 4.1 (3.3-5.1) mmol/L Chloride 108 (96-108) mmol/L Carbon Dioxide 23 (22-29) mmol/L Anion Gap 11 L (12-20) BUN 16 (9-16) mg/dL Creatinine 0.86 (0.5-1.4) mg/dL Estim Creat Clear Calc 83.8 Estimated GFR > 60 Random Glucose 112 (60-115) mg/dL Calcium 9.4 (8.4-10.2) mg/dL Total Bilirubin 0.3 (0.0-1.0) mg/dL Direct Bilirubin 0.1 (0.0-0.5) mg/dL AST 42 H (5-31) U/L ALT 69 H (0-31) U/L Alkaline Phosphatase 68 (39-117) U/L Total Protein 7.1 (6.5-8.0) g/dL Albumin 4.1 (3.5-5.0) g/dL Lipase 22 (8-78) U/L Urine Color Yellow Urine Appearance Clear Urine pH 5.5 (5.0-9.0) Ur Specific [place] 1.025 (1.005-1.025) Urine Protein Negative (Neg-Trace) mg/dL Urine Glucose (UA) Negative (Negative) mg/dL Urine Ketones Negative (Negative) mg/dL Urine Blood Negative (Negative) Urine Nitrite Negative (Negative) Ur Leukocyte Esterase Negative (Negative) Urine Test (NEGATIVE) 03/10/23 Range/Units 02:46 WBC (4.8-10.8) X10*3/uL RBC (4.20-5.50) X10*6/uL Hgb (12.0-16.0) g/dl Hct (37.0-47.0) % MCV (80.0-98.0) fL MCH (27.0-33.0) pg MCHC (31.0-35.0) g/dl RDW (11.0-16.0) % Plt Count (160-400) X10*3/uL MPV (9.4-12.3) fL Immature Gran % (Auto) (0.0-0.4) % Neut % (Auto) (45-73) % Lymph % (Auto) (20-40) % Sherman % (Auto) (2-11) % Eos % (Auto) (0-4) % Baso % (Auto) (0-2) % Lymph # (Auto) (1.2-4.9) X10*3/uL Sherman # (Auto) (0.1-1.2) X10*3/uL Eos # (Auto) (0.0-0.4) X10*3/uL Baso # (Auto) (0.0-0.2) X10*3/uL Abs Immat Gran (auto) (0.00-0.03) X10*3/uL Absolute Neuts (auto) (2.0-8.3) x10*3/uL Absolute Nucleated RBC (0.0-0.012) X10*3/uL Nucleated RBC % (auto) (0.0-0.2) /100WBC Sodium (135-145) mmol/L Potassium (3.3-5.1) mmol/L Chloride (96-108) mmol/L Carbon Dioxide (22-29) mmol/L Anion Gap (12-20) BUN (9-16) mg/dL Creatinine (0.5-1.4) mg/dL Estim Creat Clear Calc Estimated GFR Random Glucose (60-115) mg/dL Calcium (8.4-10.2) mg/dL Total Bilirubin (0.0-1.0) mg/dL Direct Bilirubin (0.0-0.5) mg/dL AST (5-31) U/L ALT (0-31) U/L Alkaline Phosphatase (39-117) U/L Total Protein (6.5-8.0) g/dL Albumin (3.5-5.0) g/dL Lipase (8-78) U/L Urine Color Urine Appearance Urine pH (5.0-9.0) Ur Specific [place] (1.005-1.025) Urine Protein (Neg-Trace) mg/dL Urine Glucose (UA) (Negative) mg/dL Urine Ketones (Negative) mg/dL Urine Blood (Negative) Urine Nitrite (Negative) Ur Leukocyte Esterase (Negative) Urine Test NEGATIVE (NEGATIVE) Discharge Plan Discharge Clinical Impression: Fatty liver Patient Disposition: Home, Self-Care Instructions: Non-Alcoholic Fatty Liver Disease (ED) Additional Instructions: Decreased carbohydrate intake and decrease alcohol intake and exercise Follow with PCP Disminuci?n de la ingesta de carbohidratos y disminuci?n de la ingesta de alcohol y ejercicio. Seguir con PCP Prescriptions: No Action ergocalciferol (vitamin D2) 1,250 mcg (50,000 unit) capsule 1 cap PO QWEEK bupropion HCl [Wellbutrin XL] 150 mg tablet extended release 24 hr 1 tab PO DAILY sertraline 100 mg tablet 1 tab PO QAM quetiapine 200 mg tablet 1 tab PO BEDTIME Rx Instructions: one 200 mg tab + one 50 mg tab = 250 mg daily quetiapine 50 mg tablet 1 tab PO DAILY Rx Instructions: one 200 mg tab + one 50 mg tab = 250 mg daily Print Language: Wolof
== END 2023-03-10 04:00 | disposition home or self-care (01) ==
PROVIDERS: Emergency Provider Internal Medicine; PCP Internal Medicine
DX: K76.0 Fatty (change of) liver, not elsewhere classified (principal); R10.11 Right upper quadrant pain; F17.210 Nicotine dependence, cigarettes, uncomplicated; Z79.899 Other long term (current) drug therapy
CPT/HCPCS: 36415; 80048; 80076; 81003; 81025; 83690; 85025; 99283; 99284

== ENCOUNTER 2023-05-20 07:57 | Outpatient (AMB) | payer MEDICAID, SELFPAY ==
[2023-05-20 08:01] VITALS: BP 110/68; BMI 27.3
--- NOTE | 2023-05-20 08:01 | MHC.OFFVIS ---
Intake Vital Signs 05/20/23 08:01 Height 5 ft 6 in Weight 169 lb BMI 27.3 BP 110/68 Intake Visit Reasons: Vaginal discharge/armenian Intake Note: The patient agreed to use of a medical staff credentialing coordinator during this encounter. Scribed for EMIR Márquez by Tawny Kellogg medical staff credentialing coordinator, on 05/20/2023 at 8:15 am EST. Deputy Register Of Deeds: Deputy Register Of Deeds Present (Maggy) Allergies No Known Allergies [No Known Allergies*] Allergy (Verified 05/20/23 09:03) Is last menstrual period known: Yes Last menstrual period: 05/08/23 HPI HPI Comments History of Present Illness Details She is here with complaints of vaginal discharge. She reports sleeping with her ex, he had tested positive for chlamydia, she is concerned because he took his condom off during intimacy. Seen and Rx by her PCP, also seen by [facility], and tested negative. Admits pelvic pain. Denies urinary symptoms. STD blood work offered; she declines due to having it completed recently. [facility] Medical History Abnormal Pap smear of cervix Bilateral pulmonary embolism DVT (deep venous thrombosis) PE (pulmonary thromboembolism) Pulmonary embolism Vaginal discharge Surgical History Hx of foot surgery Hx of tubal ligation Family History Maternal Aunt Breast cancer Brother Diabetes Sister Diabetes Maternal Aunt Metastasis from esophageal cancer Father Colon cancer Social History Household Members: Children Housing: Apartment Are you a primary child care center administrator to a significant other at home: No Do you presently have visiting nurse or other home services: No Alcohol intake: current Alcohol intake frequency: a few times a week Patient Tobacco Use Status: Current everyday Tobacco user Tobacco use type: Cigarette Advance Directives: No Advance Directives Information Provided: No service: No Current occupational status: unemployed Gender identity: Female Female Reproductive History Menstrual Age of Menarche: 13 Duration of menses: 3-5 days Date of last menstrual period: 05/08/23 Physical Exam Vital Signs: Last Vital Signs BP 110/68 05/20/23 08:01 BMI result Body Mass Index 27.3 Const General: cooperative, healthy appearing, comfortable, no acute distress, well developed, alert and awake Other: slight discomfort during exam General: Yes bladder normal to palpation External Female Exam: normal external appearance and normal appearance of the urethra Speculum Exam - Vagina: normal appearance of the vagina, normal palpation and abnormal vaginal discharge white Speculum Exam - Cervix: normal appearance of the cervix, normal palpation and Other cervical findings present (clear mucus) Bimanual exam- vagina & uterus: normal bimanual exam, normal palpation, bladder normal to palpation and normal palpation Bimanual Exam- Adnexa, other: normal adnexae and no masses Assessment & Plan Assessment & Plan (1) Vaginal discharge: Code(s): N89.8 - Other specified noninflammatory disorders of vagina Plan: Discussed: BV testing and GC/CT panel done today. Await results and treat accordingly. Encouraged to use condoms for STD and prevention always. All of her questions and concerns were addressed to the best of my ability and shared decision making. She is agreeable to plan of care. Schedule and RTO for AG. (2) Potential exposure to STD: Code(s): Z20.2 - Contact with and (suspected) exposure to infections with a predominantly sexual mode of transmission (3) Pelvic pain: Code(s): R10.2 - Pelvic and perineal pain Orders: Orders Bacterial Vaginosis Panel Today N89.8 - Other specified noninflammatory disorders of vagina, R10.2 - Pelvic and perineal pain, Z20.2 - Contact with and (suspected) exposure to infections with a predominantly sexual mode of transmission CT NG by PCR Today N89.8 - Other specified noninflammatory disorders of vagina, R10.2 - Pelvic and perineal pain, Z20.2 - Contact with and (suspected) exposure to infections with a predominantly sexual mode of transmission Coding Level of Care Code Est Pt Level 3 (61646) Diagnoses Vaginal discharge N89.8 Potential exposure to STD Z20.2 Pelvic pain R10.2
== END 2023-05-20 08:32 | disposition home or self-care (01) ==
PROVIDERS: PCP Internal Medicine; Visit Provider Advanced Practice Midwife
DX: N89.8 Other specified noninflammatory disorders of vagina (principal); Z20.2 Contact with and (suspected) exposure to infections with a predominantly sexual mode of transmission; R10.2 Pelvic and perineal pain
CPT/HCPCS: 99213

== ENCOUNTER 2023-05-20 07:57 | Outpatient (REF) | payer MEDICAID, SELFPAY ==
[2023-05-21 01:42] LABS: CT PCR NOT DETECTED (Not Detect.); NG PCR NOT DETECTED (Not Detect.)
[2023-05-21 14:52] LABS: BV Int Neg Control Negative (Negative); BV Int Pos Control Positive (Positive)
== END 2023-05-20 07:58 | disposition home or self-care (01) ==
LOC: HO.LAB 07:57
PROVIDERS: PCP Internal Medicine; Visit Provider Advanced Practice Midwife
DX: R10.2 Pelvic and perineal pain (principal); N89.8 Other specified noninflammatory disorders of vagina; Z20.2 Contact with and (suspected) exposure to infections with a predominantly sexual mode of transmission
CPT/HCPCS: 0353U; 87480; 87510; 87660; 99213

== ENCOUNTER 2023-05-20 08:29 | Outpatient (REF) | payer MEDICAID, SELFPAY | END 2023-05-20 08:30 | disposition home or self-care (01) | LOC: HO.LNP 08:29 | PROVIDERS: Visit Provider Advanced Practice Midwife | DX: Z13.89 Encounter for screening for other disorder (principal) ==

== ENCOUNTER 2023-05-20 08:56 | Emergency (ER) | payer MEDICAID, SELFPAY ==
[2023-05-20 09:00] VITALS: BP 114/78; PULSE 72; RESP 20; TEMP 36.1; O2SAT 100; BMI 30.9
--- NOTE | 2023-05-20 09:11 | ED.URI ---
HPI - URI/Sore Throat General Chief Complaint: Upper Respiratory Symptoms Stated Complaint: no taste, cough, fever Time Seen by Provider: 05/20/23 08:58 Source: patient and RN notes reviewed Mode of arrival: ambulatory Limitations: no limitations History of Present Illness HPI Narrative: This is a 37-year-old female, with no significant past medical history, presenting to the emergency department for evaluation of nasal congestion, sore throat, dry cough, body aches, subjective fevers, chills, and nausea x 3 days. Patient reports that on Thursday she developed dry cough and her symptoms have been progressively worsening. She has been taking Motrin at home which is provide her with some relief. Patient denies any shortness of breath. She endorses chest pain which she is coughing. She reports that she lost her sense of taste. Denies chest pain at rest or any palpitations. Denies any abdominal pain or vomiting. She has received her COVID vaccines. She reports that her family member was sick at home however they recovered after 1 day. 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 No other complaints or concerns at this time. MD elicited complaint: fever, cough, sore throat, rhinorrhea, nasal congestion and sinus pain Onset (ago): day(s) Consistency: constant Description of mucous: clear and yellow Able to tolerate fluids by mouth: Yes Exacerbating factors: nothing Relieving factors: NSAID Context: sick contacts Associated symptoms: fever, chills, headache, rhinorrhea, nasal congestion, sore throat, cough, chest pain (With coughing), shortness of breath, nausea and diarrhea Treatments prior to arrival: ibuprofen Related Data Home Medications Medication Instructions Recorded Confirmed ergocalciferol (vitamin D2) 1,250 1 cap PO QWEEK 12/30/21 12/30/22 mcg (50,000 unit) capsule quetiapine 200 mg tablet 1 tab PO BEDTIME 12/30/22 12/30/22 sertraline 100 mg tablet 1 tab PO QAM 12/30/22 12/30/22 hydroxyzine HCl 25 mg tablet 25 - 50 mg PO Q6H PRN anxiety 05/20/23 perphenazine 2 mg tablet 2 mg PO BID 05/20/23 Previous Rx's Medication Instructions Recorded acetaminophen 325 mg tablet 650 mg PO Q6H PRN fever or pain 05/20/23 (Tylenol) #30 tabs benzonatate 200 mg capsule 200 mg PO TID PRN cough 7 days #15 05/20/23 caps ibuprofen 600 mg tablet 600 mg PO Q6H PRN fever or pain 05/20/23 #30 tabs sodium chloride 0.65 % nasal spray 2 spray intranasal Q4H PRN nasal 05/20/23 aerosol ([place] Saline) congestion #50 mL Allergies Allergy/AdvReac Type Severity Reaction Status Date / Time No Known Allergies Allergy Verified 05/20/23 09:03 [No Known Allergies*] Review of Systems Review of Systems: Yes all other systems are reviewed and are negative Constitutional: Constitutional: Reports as per [facility] Past Medical History Medical History Abnormal Pap smear of cervix Bilateral pulmonary embolism DVT (deep venous thrombosis) PE (pulmonary thromboembolism) Pulmonary embolism Vaginal discharge Surgical History Hx of foot surgery Hx of tubal ligation Family History Family History Maternal Aunt Breast cancer Brother Diabetes Sister Diabetes Maternal Aunt Metastasis from esophageal cancer Father Colon cancer Social History Social History Household Members: Children Housing: Apartment Are you a primary healthcare management to a significant other at home: No Do you presently have visiting nurse or other home services: No Alcohol intake: current Alcohol intake frequency: a few times a week Patient Tobacco Use Status: Current everyday Tobacco user Tobacco use type: Cigarette Advance Directives: No Advance Directives Information Provided: No service: No Current occupational status: unemployed Gender identity: Female Physical Exam Vital Signs: Vital Signs: Last Vital Signs Temp 97.0 F 05/20/23 09:00 Pulse 72 05/20/23 09:00 Resp 20 05/20/23 09:00 BP 114/78 05/20/23 09:00 Pulse Ox 100 05/20/23 09:00 O2 Del Method Room Air 05/20/23 09:00 BMI result Body Mass Index 30.9 Const: Other: Sounds nasally congested General: cooperative, comfortable and no acute distress Orientation/consciousness: patient oriented x3 Limitations: no limitations HEENT: Other: Posterior oropharynx is mildly erythematous, no tonsillar hypertrophy or exudates. Uvula is midline, no trismus or drooling. No frontal, ethmoid, or maxillary sinus tenderness to palpation. Head: Yes normal to inspection, Yes normocephalic and Yes atraumatic Ears: hearing grossly normal bilaterally and TM's normal bilaterally General nose exam: Normal external nose present Face and sinus: Yes normal facial exam Throat: Yes posterior oropharynx normal Eyes: General: appearance normal, both eyes and all related structures Eyelids: Yes eyelids normal Conjunctivae: conjunctivae normal Sclerae: sclerae normal Pupils: Equal, round and reactive pupils present EOM: EOMs intact bilaterally Neck: Other: No cervical lymphadenopathy noted. Neck: Yes normal visual inspection, Yes full ROM and Yes no lymphadenopathy Chest: Chest palpation & inspection: normal inspection of the chest Resp: Effort & Inspection: normal respiratory effort and able to speak in complete sentences Auscultation: clear to auscultation bilaterally, no crackles, no rales, no rhonchi and no wheezes Cardio: Rate: regular rate Rhythm: regular rhythm Heart sounds: S1 normal heart sound present and S2 normal heart sound present GI: Other: Abdomen is soft, nontender, nondistended Inspection: Yes normal to inspection Skin: General skin exam: no rashes or lesions noted Trauma: no lacerations or abrasions Wounds: no wounds Neuro: General: patient oriented x3 and moves all extremities Cranial nerves: Yes Equal, round and reactive pupils present Extrem: General: Yes normal to inspection Right upper extremity: normal to inspection Left upper extremity: normal to inspection Right lower extremity: normal to inspection Left lower extremity: normal to inspection Course Reevaluation(s) Reevaluation #1: Patient tested negative for COVID, flu, and strep throat. Patient's symptoms likely viral URI. Will treat symptoms conservatively. Patient given return precautions if any new or worsening symptoms occur. Discussed with patient, understands, patient's vital signs remained stable. Patient stable for discharge. Time: 10:02 Medical Decision Making Medical Decision Making MDM Narrative: 37-year-old female presenting to the emergency department for evaluation of dry cough, nasal congestion, body aches, subjective fevers and chills x3 days. On arrival, all vital signs within normal limits, patient is afebrile, oxygen saturation 100% on room air, pulse 72 beats per minute, respirations 20 respirations per minute. Patient is normotensive at 114/78. On examination, lungs clear to auscultation bilaterally, no sinus tenderness, oropharynx mildly erythematous otherwise unremarkable. Differential diagnosis include COVID-19, upper respiratory infection, reactive airway disease, viral syndrome, strep pharyngitis. Presentation not consistent with chronic causes of cough including GERD, asthma, postnasal discharge, medication side effect or CHF. On presentation, will obtain strep test and COVID-19, flu test. Plan: COVID-19, strep swab, influenza swab Differential Diagnosis Differential Diagnoses: The differential diagnosis associated with the presentation includes COVID-19, URI, reactive airway disease, viral syndrome, strep pharyngitis Lab Data MDM Lab Attestation statement: I reviewed the patient's lab results. Labs: Lab Results 05/20/23 05/20/23 05/20/23 Range/Units 09:15 09:15 09:15 COVID-19 (RACHELLE) Negative (Negative) COVID-19 Clin Com See Note Influenza Type A (MONAE) Negative (Negative) Influenza Type B (MONAE) Negative (Negative) Influenza A & B Note See Note S. pyogenes GrpA MONAE Negative (Negative) Radiology Impression Discussion of test interpretation with radiology: I have reviewed the radiologist's reading. External Record Review External record reviewed: Inpatient record, Office record, Outpatient record, Prior outpatient labs, Prior outpatient radiology, Primary care record and Outside ED record Discharge Plan Discharge Clinical Impression: Acute upper respiratory infection Patient Disposition: Home, Self-Care Instructions: Upper Respiratory Infection (ED) Additional Instructions: You tested negative for COVID, flu, and strep throat today. You have a upper respiratory infection, which is caused by a virus, you do not need antibiotics at this time. Drink plenty of fluids and get plenty of rest. Alternate between Tylenol and Motrin as needed for symptoms. Take prescribed medication as directed. If any new or worsening symptoms occur including but not limited to worsening chest pain shortness of breath or any other new or worsening symptoms. Prescriptions: New ibuprofen 600 mg tablet 600 mg PO Q6H PRN (Reason: fever or pain) Qty: 30 0RF acetaminophen [Tylenol] 325 mg tablet 650 mg PO Q6H PRN (Reason: fever or pain) Qty: 30 0RF [place] Saline 0.65 % aerosol,spray 2 spray intranasal Q4H PRN (Reason: nasal congestion) Qty: 50 0RF benzonatate 200 mg capsule 200 mg PO TID PRN (Reason: cough) 7 Days Qty: 15 0RF No Action ergocalciferol (vitamin D2) 1,250 mcg (50,000 unit) capsule 1 cap PO QWEEK sertraline 100 mg tablet 1 tab PO QAM quetiapine 200 mg tablet 1 tab PO BEDTIME Rx Instructions: one 200 mg tab + one 50 mg tab = 250 mg daily hydroxyzine HCl 25 mg tablet 25 - 50 mg PO Q6H PRN (Reason: anxiety) perphenazine 2 mg tablet 2 mg PO BID Stand Alone Forms: Work/School Release
[2023-05-20 09:29] LABS: IDNOW Serial# 08D9AD1C; Strep A Nucleic Acid Negative (Negative)
[2023-05-20 09:39] LABS: COVID-19 Test Negative (Negative); IDNOW Serial# 9DB6401D
[2023-05-20 09:46] LABS: IDNOW Serial# BCCEAD1C; Influenza A Negative (Negative); Influenza B2 Negative (Negative)
--- NOTE | 2023-05-20 10:01 | PC.NURSE ---
Patient presenting with congestion, fevers, sore throat, runny nose, and generalized body aches. Patient states that she is up to date with flu and covid vaccinations. Patient has been taking motrin for the fevers and aches with some relief. Patient seems to be well hydrated, appetite has been decreased due to some abdominal pain.
[2023-05-20 10:25] VITALS: BP 106/76; PULSE 77; RESP 18; O2SAT 100
== END 2023-05-20 10:29 | disposition home or self-care (01) ==
PROVIDERS: Physician Assistant Medical; Emergency Provider Emergency Medicine; PCP Internal Medicine
DX: J06.9 Acute upper respiratory infection, unspecified (principal); J02.9 Acute pharyngitis, unspecified; Z20.822 Contact with and (suspected) exposure to COVID-19
CPT/HCPCS: 87502; 87635; 87651; 99283; 99284

== ENCOUNTER 2023-07-09 13:28 | Outpatient (REF) | payer MEDICAID, SELFPAY ==
[2023-07-09 16:13] LABS: MANUAL DIFF FLAG NO
[2023-07-09 16:19] LABS: Basophils Absolute Auto 0.1 X10*3/uL (0.0-0.2); Basophils Percent Auto 0.5 % (0-2); Eosinophils Absolute Auto 0.1 X10*3/uL (0.0-0.4); Eosinophils Percent Auto 0.5 % (0-4); Hematocrit 41.4 % (37.0-47.0); Hemoglobin 13.4 g/dl (12.0-16.0); Imm Gran Abs Auto 0.03 X10*3/uL (0.00-0.03); Imm Gran Pct Auto 0.3 % (0.0-0.4); Lymphocytes Absolute Auto 2.1 X10*3/uL (1.2-4.9); Lymphocytes Percent Auto 21.6 % (20-40); Mean Corpuscular HGB Conc 32.4 g/dl (31.0-35.0); Mean Corpuscular Hemoglobin 30.2 pg (27.0-33.0); Mean Corpuscular Volume 93.5 fL (80.0-98.0); Mean Platelet Volume 10.9 fL (9.4-12.3); Monocytes Absolute Auto 0.6 X10*3/uL (0.1-1.2); Monocytes Percent Auto 6.2 % (2-11); Neutrophils Absolute Auto 6.7 x10*3/uL (2.0-8.3); Neutrophils Percent Auto 70.9 % (45-73); Platelet Count 286 X10*3/uL (160-400); Red Blood Count 4.43 X10*6/uL (4.20-5.50); White Blood Count 9.5 X10*3/uL (4.8-10.8)
[2023-07-09 16:20] LABS: Basophils Percent Auto 0.4 % (0-2); Eosinophils Absolute Auto 0.1 X10*3/uL (0.0-0.4); Eosinophils Percent Auto 0.5 % (0-4); Hematocrit 41.7 % (37.0-47.0); Hemoglobin 13.5 g/dl (12.0-16.0); Imm Gran Abs Auto 0.03 X10*3/uL (0.00-0.03); Imm Gran Pct Auto 0.3 % (0.0-0.4); Lymphocytes Percent Auto 21.5 % (20-40); Mean Corpuscular HGB Conc 32.4 g/dl (31.0-35.0); Mean Corpuscular Hemoglobin 29.9 pg (27.0-33.0); Mean Corpuscular Volume 92.5 fL (80.0-98.0); Mean Platelet Volume 10.6 fL (9.4-12.3); Monocytes Absolute Auto 0.6 X10*3/uL (0.1-1.2); Monocytes Percent Auto 6.1 % (2-11); Neutrophils Absolute Auto 6.5 x10*3/uL (2.0-8.3); Neutrophils Percent Auto 71.2 % (45-73); Platelet Count 300 X10*3/uL (160-400); Red Blood Count 4.51 X10*6/uL (4.20-5.50); White Blood Count 9.2 X10*3/uL (4.8-10.8)
[2023-07-09 16:28] LABS: Alanine Aminotransferase 40 U/L (0-31); Albumin Level 4.1 g/dL (3.5-5.0); Alkaline Phosphatase 67 U/L (39-117); Anion Gap 8 (12-20); Aspartate Amino Transferase 32 U/L (5-31); Bilirubin Total 0.2 mg/dL (0.0-1.0); Blood Urea Nitrogen 14 mg/dL (9-16); Calcium 8.9 mg/dL (8.4-10.2); Carbon Dioxide 25 mmol/L (22-29); Chloride 110 mmol/L (96-108); Estimated Glomerular Filt Rate 57; Glucose Random 116 mg/dL (60-115); Potassium 4.1 mmol/L (3.3-5.1); Sodium 139 mmol/L (135-145); Total Protein 7.2 g/dL (6.5-8.0)
[2023-07-09 16:41] LABS: D Dimer High Sensitivity 791 NG/ML
[2023-07-09 16:43] LABS: Alanine Aminotransferase 40 U/L (0-31); Albumin Level 4.1 g/dL (3.5-5.0); Alkaline Phosphatase 69 U/L (39-117); Anion Gap 11 (12-20); Aspartate Amino Transferase 33 U/L (5-31); Bilirubin Direct < 0.2 mg/dL (0.0-0.5); Bilirubin Total 0.2 mg/dL (0.0-1.0); Blood Urea Nitrogen 14 mg/dL (9-16); Calcium 8.9 mg/dL (8.4-10.2); Carbon Dioxide 23 mmol/L (22-29); Chloride 110 mmol/L (96-108); Estimated Glomerular Filt Rate 57; Gamma Glutamyl Transpeptidase 48 U/L (7-33); Glucose Random 113 mg/dL (60-115); Sodium 140 mmol/L (135-145); Total Protein 7.3 g/dL (6.5-8.0)
[2023-07-09 16:48] LABS: Free T4 (Free Thyroxine) 0.99 ng/dL (0.71-1.85); TSH reflex Free T4 1.33 uIU/mL (0.32-4.0)
[2023-07-10 08:54] LABS: ~HepC Num1 0.14 S/CO (0.00-0.79); ~Hepatitis C Antibody Nonreactive (Nonreactive)
[2023-07-10 09:00] LABS: Syphilis Screen Nonreactive (Nonreactive)
[2023-07-11 00:33] LABS: Triiodothyronine T3 Free 3.4 pg/mL (2.3-4.2)
[2023-07-11 19:08] LABS: HIV RNA PCR Qn Copies NOT DETECTED copies/mL (NOT DETECTED); HIV RNA PCR Qn Log Copies NOT DETECTED (NOT DETECTED)
== END 2023-07-09 13:29 | disposition home or self-care (01) ==
LOC: HO.HHCL 13:28
PROVIDERS: PCP Internal Medicine; Visit Provider Internal Medicine Medical Oncology
DX: Z11.4 Encounter for screening for human immunodeficiency virus [HIV] (principal); Z11.3 Encounter for screening for infections with a predominantly sexual mode of transmission; F10.20 Alcohol dependence, uncomplicated; R63.4 Abnormal weight loss; R25.1 Tremor, unspecified; Z86.718 Personal history of other venous thrombosis and embolism
CPT/HCPCS: 36415; 80048; 80053; 80076; 82248; 82977; 84439; 84443; 84481; 85025; 85379; 86780; 86803; 87536

== ENCOUNTER 2023-07-15 14:18 | Outpatient (REF) | payer MEDICAID, SELFPAY ==
[2023-07-15 16:13] LABS: INTERNATIONAL NORM RATIO 1.1 (0.9-1.1); Prothrombin Time 12.8 SEC (11.1-13.3)
[2023-07-15 16:43] LABS: Alanine Aminotransferase 48 U/L (0-31); Albumin Level 4.1 g/dL (3.5-5.0); Alkaline Phosphatase 66 U/L (39-117); Aspartate Amino Transferase 35 U/L (5-31); Bilirubin Direct < 0.2 mg/dL (0.0-0.5); Bilirubin Total 0.2 mg/dL (0.0-1.0); Iron 73 mcg/dL (30-160); Percent Iron Saturation 29 % (15-50); Total Iron Binding Capacity 250 mcg/dL (228-428); Total Protein 7.5 g/dL (6.5-8.0); Unsaturated Iron Binding 177 ug/dL
[2023-07-15 17:04] LABS: Ferritin 216 ng/mL (10-122); TSH reflex Free T4 1.17 uIU/mL (0.32-4.0)
[2023-07-16 08:49] LABS: HBS Num1 154.63 mIU/mL (0-7.99); HBc Num1 0.13 S/CO (0.00-0.79); HBsAGNum1 0.31 S/CO (0.00-0.99); Hepatitis B Core Antibody Nonreactive (Nonreactive); Hepatitis B Surface Antigen Negative (Negative); ~Hepatitis B Surface Antibody REACTIVE (Nonreactive)
[2023-07-16 09:03] LABS: Hepatitis A Antibody IgG Nonreactive (Nonreactive); ~Hepatitis A Antibody IgG 0.48 S/CO (0.00-0.99)
[2023-07-16 17:17] LABS: Ceruloplasmin 27 mg/dL (18-53); Immunoglobulin A 355 mg/dL (47-310); Immunoglobulin G 1358 mg/dL (600-1640)
[2023-07-17 17:18] LABS: Transglutaminase IgA <1.0 U/mL
[2023-07-18 23:13] LABS: Liver Kidney Microsomal Ab <=20.0 U (<=20.0)
[2023-07-20 12:24] LABS: Smooth Muscle Antibody <20 U (<20)
[2023-07-21 13:37] LABS: Phosphatidylethanol 16:0-18:1 140 (H)
[2023-07-22 12:48] LABS: Mitochondrial Antibodies NEGATIVE (NEGATIVE)
== END 2023-07-15 14:19 | disposition home or self-care (01) ==
LOC: HO.LAB 14:18
PROVIDERS: PCP Internal Medicine; Visit Provider Internal Medicine
DX: R79.89 Other specified abnormal findings of blood chemistry (principal); E66.9 Obesity, unspecified; Z78.9 Other specified health status
CPT/HCPCS: 36415; 80076; 80321; 82390; 82728; 82784; 83540; 84443; 85610; 86015; 86364; 86376; 86381; 86704; 86706; 86708; 87340

== ENCOUNTER 2023-07-15 14:18 | Outpatient (AMB) | payer MEDICAID, SELFPAY ==
--- NOTE | 2023-07-15 14:29 | MHC.OFFVIS ---
Intake Vital Signs 07/15/23 14:31 Height 5 ft 3 in Weight 169 lb 12.095 oz BMI 30.1 BP 111/79 Blood Pressure Location Lt brachial Position Sitting Pulse 75 Intake Visit Reasons: Alcoholic Hepatitis without ascites Intake Note: Nisha presents in the office as a new patient for alcoholic hepatitis w/o ascites. CC: She states that she is concerned about her liver being bigger. Allergies No Known Allergies [No Known Allergies*] Allergy (Verified 07/10/23 15:38) HPI HPI Comments History of Present Illness Details This is a 38y.o F with PMH of who is here for elevated LFTs. 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 Pt reports having intermittent RUQ pain that started around earlier this year associated with nausea. Used to drink etOH up to 4-5 nips of fireball and a 12 pack of beer in one day x 5 years. Has recently hard liqupr quit since her hospital visit earlier this year when she was told about liver inflammation. COntinues to consume 3-4 beers over the weekends still. Sometimes also smokes tobacco. No marijuana or IVDU. Pt also lost almost 30 lbs in the last 3 months after she cut down on drinking as well modified her diet. [facility] Medical History Vaginal discharge Abnormal Pap smear of cervix Pulmonary embolism Bilateral pulmonary embolism PE (pulmonary thromboembolism) DVT (deep venous thrombosis) Surgical History Hx of tubal ligation Hx of foot surgery Family History (Updated 07/15/23 @ 14:32 by ELIA Gomez) Maternal Aunt Breast cancer Colon cancer Brother Diabetes Sister Diabetes Maternal Aunt Metastasis from esophageal cancer Father Colon cancer Family/Other Colon cancer Social History Household Members: Children Housing: Apartment Are you a primary career development director to a significant other at home: No Do you presently have visiting nurse or other home services: No Alcohol intake: never Patient Tobacco Use Status: Current everyday Tobacco user Tobacco use type: Cigarette service: No Current occupational status: unemployed Gender identity: Female Female Reproductive History Menstrual Age of Menarche: 13 Physical Exam Vital Signs: Last Vital Signs Pulse 75 07/15/23 14:31 BP 111/79 07/15/23 14:31 BMI result Body Mass Index 30.1 Gen appear: NAD HEENT: nonicteric, no cervical lymphadenopathy Chest: CTA CVS: Regular S1/S2 Abd: soft, nontender, nondistended, bowel sounds + Ext: no peripheral edema Neuro: A/Ox3, noted to move all extremities spontaneously Psych: interacting appropriately Results Reviewed Results Reviewed: CT Abd/pel without contrast 11/2022: Diffuse fatty infiltration liver is again noted with mild focal fatty sparing adjacent to the gallbladder fossa. No focal hepatic lesion nor biliary ductal dilatation. The gallbladder is unremarkable with no evidence of radiopaque gallstones, gallbladder wall thickening, or obvious pericholecystic inflammatory changes. Assessment & Plan Assessment & Plan (1) Elevated LFTs: Code(s): R79.89 - Other specified abnormal findings of blood chemistry (2) Alcohol use: Code(s): Z78.9 - Other specified health status (3) Obesity: Code(s): E66.9 - Obesity, unspecified Plan Discussed with the pt that likely a combination of etOH+non-etOH related fatty liver based on pattern of hepatocellylar injury as well as imaging data. Other DDx include infectious hep, iron overload, AIH, wilsons. - Labs ordered as above - Will also repeat imaging since reports >3 months of avoiding hard liquor - Pt strongly advised on abstaining 100% from etOH. No safe minimum. - Fib-4 is 0.66 i.e low suspicion of advanced fibrosis at this time. Follow up in 8 weeks Orders: Orders Ferritin 07/15/23 - Other specified abnormal findings of blood chemistry Immunoglobulin G 07/15/23 - Other specified abnormal findings of blood chemistry Immunoglobulin A 07/15/23 - Other specified abnormal findings of blood chemistry Liver Panel 07/15/23 - Other specified abnormal findings of blood chemistry Prothrombin Time INR 07/15/23 - Other specified abnormal findings of blood chemistry Ceruloplasmin 07/15/23 - Other specified abnormal findings of blood chemistry Hepatitis B Surface Antigen 07/15/23 - Other specified abnormal findings of blood chemistry US abdomen complete 07/15/23 - Other specified abnormal findings of blood chemistry IRON PROFILE 07/15/23 - Other specified abnormal findings of blood chemistry Liver Kidney Microsomal Ab 07/15/23 R7. - Other specified abnormal findings of blood chemistry Mitochondrial Antibody 07/15/23 R7. - Other specified abnormal findings of blood chemistry Phosphatidylethanol, Blood 07/15/23 R7. - Other specified abnormal findings of blood chemistry Smooth Muscle Antibody 07/15/23 R7. - Other specified abnormal findings of blood chemistry Transglutaminase IgA 07/15/23 R7. - Other specified abnormal findings of blood chemistry TSH reflex Free T4 07/15/23 R7. - Other specified abnormal findings of blood chemistry Hepatitis A IgG 07/15/23 R7. - Other specified abnormal findings of blood chemistry Hepatitis B Core Antibody 07/15/23 R7. - Other specified abnormal findings of blood chemistry Hepatitis B Surface Antibody 07/15/23 R7. - Other specified abnormal findings of blood chemistry Coding Level of Care Code New Pt Level 4 (47693) Diagnoses Elevated LFTs Alcohol use Z78.9 Obesity E66.9
[2023-07-15 14:31] VITALS: BP 111/79; PULSE 75; BMI 30.1
== END 2023-07-15 15:03 | disposition home or self-care (01) ==
PROVIDERS: PCP Internal Medicine; Visit Provider Internal Medicine
DX: R79.89 Other specified abnormal findings of blood chemistry (principal); Z78.9 Other specified health status; E66.9 Obesity, unspecified
CPT/HCPCS: 99204

== ENCOUNTER 2023-08-02 18:47 | Emergency (ER) | payer MEDICAID, SELFPAY ==
[2023-08-02 20:28] VITALS: BP 111/72; PULSE 102; RESP 18; TEMP 37.1; O2SAT 97; BMI 31.5
--- NOTE | 2023-08-02 20:28 | ED.GENADULT ---
HPI - General Adult General Chief complaint: Upper Respiratory Symptoms Stated complaint: Fever, body aches Time Seen by Provider: 08/02/23 21:44 Source: patient, RN notes reviewed and old records reviewed Mode of arrival: ambulatory Limitations: no limitations History of Present Illness HPI narrative: 38-year-old female presents for evaluation of fever, body aches, sore throat x1 day. Patient is able to swallow but reports pain with swallowing She states that she was around a friend who recently tested positive for COVID Patient denies any cough or shortness of breath No chest pain, abdominal pain, nausea vomiting or symptoms Related Data Home Medications Medication Instructions Recorded Confirmed ergocalciferol (vitamin D2) 1,250 1 cap PO QWEEK 12/30/21 07/10/23 mcg (50,000 unit) capsule quetiapine 200 mg tablet 1 tab PO BEDTIME 12/30/22 07/10/23 sertraline 100 mg tablet 1 tab PO QAM 12/30/22 07/10/23 hydroxyzine HCl 25 mg tablet 25 - 50 mg PO Q6H PRN anxiety 05/20/23 07/10/23 perphenazine 2 mg tablet 2 mg PO BID 05/20/23 07/10/23 calcium carbonate 500 mg-vitamin 1 tab PO BID 07/15/23 D3 10 mcg (400 unit) tablet (Oyster Shell Calcium-Vitamin D3) Previous Rx's Medication Instructions Recorded acetaminophen 325 mg tablet 650 mg (2 x 325 mg) PO Q6H PRN 05/20/23 (Tylenol) fever or pain #30 tabs benzonatate 200 mg capsule 200 mg PO TID PRN cough 7 days #15 05/20/23 caps ibuprofen 600 mg tablet 600 mg PO Q6H PRN fever or pain 05/20/23 #30 tabs sodium chloride 0.65 % nasal spray 2 spray intranasal Q4H PRN nasal 05/20/23 aerosol (Ackworth Saline) congestion #50 mL amoxicillin 875 mg-potassium 1 tab PO Q12H #14 tabs 08/02/23 clavulanate 125 mg tablet Allergies Allergy/AdvReac Type Severity Reaction Status Date / Time No Known Allergies Allergy Verified 07/10/23 15:38 [No Known Allergies*] Review of Systems Constitutional: Constitutional: Reports body ache(s), Reports chills and Reports fever(s) ENT: Reports sore throat Cardiovascular: Cardiovascular: Denies dyspnea Respiratory: Respiratory: Denies cough and Denies dyspnea Gastrointestinal: Gastrointestinal: Denies abdominal pain, Denies nausea and Denies vomiting Genitourinary: Genitourinary: Denies difficulty voiding PMFSH Past Medical History Medical History Vaginal discharge Abnormal Pap smear of cervix Pulmonary embolism Bilateral pulmonary embolism PE (pulmonary thromboembolism) DVT (deep venous thrombosis) Surgical History Hx of tubal ligation Hx of foot surgery Family History Family History (Updated 07/15/23 @ 14:32 by ELIA Gomez) Maternal Aunt Breast cancer Colon cancer Brother Diabetes Sister Diabetes Maternal Aunt Metastasis from esophageal cancer Father Colon cancer Family/Other Colon cancer Social History Social History Household Members: Children Housing: Apartment Are you a primary intensive care ambulance paramedic to a significant other at home: No Do you presently have visiting nurse or other home services: No Alcohol intake: never Patient Tobacco Use Status: Current everyday Tobacco user Tobacco use type: Cigarette Advance Directives: No Advance Directives Information Provided: No service: No Current occupational status: unemployed Gender identity: Female Physical Exam ED Vital Signs: Vital Signs - 24 hr 08/02/23 20:28 Temperature 98.8 F Pulse Rate 102 H Respiratory Rate 18 Blood Pressure 111/72 Pulse Oximetry 97 Oxygen Delivery Method Room Air BMI result Body Mass Index 31.5 Const General: healthy appearing, comfortable, no acute distress, alert and awake Nutritional Appearance: well nourished Orientation/consciousness: patient oriented x3 HENMT Other: Mildly erythematous retropharynx with whitish exudates. No evidence of peritonsillar abscess. There is bilateral tonsillar hypertrophy, right slightly greater than left. Airway remains widely patent. Head: Yes normocephalic and Yes atraumatic Ears: TM's normal bilaterally and EAC's normal Eyes Eyelids: Yes eyelids normal Conjunctivae: conjunctivae normal Sclerae: sclerae normal Corneas: corneas normal Pupils: Equal, round and reactive pupils present EOM: EOMs intact bilaterally Neck Neck: Yes full ROM Resp Effort & Inspection: normal respiratory effort, able to speak in complete sentences and not labored Skin General skin exam: elasticity normal Neuro General: patient oriented x3 Cranial nerves: Yes Equal, round and reactive pupils present and Yes Bilaterally intact EOM present Cognition (Neuro): normal cognition Extrem Other: Moving all extremities well without any obvious deformities Course Course Course Narrative: RME: 38 yold female presents to the ED for sore throat, fever, bodyaches, and chills since yesterday. patient she was around her neighobr who tested positive for covid. SARS and Strep ordered Medications Administered Discontinued Medications Generic Name Dose Route Start Last Admin Trade Name Nealq PRN Reason Stop Dose Admin Amoxicillin/Clavulanate Potassium 875 mg 08/02/23 21:54 08/02/23 22:27 Amoxicillin/Potassium Clav 875 Mg Tablet PO 08/02/23 21:55 875 mg ONCE ONE Administration Ibuprofen 600 mg 08/02/23 21:54 08/02/23 22:27 Ibuprofen 600 Mg Tablet PO 08/02/23 21:55 600 mg ONCE ONE Administration Medical Decision Making Medical Decision Making MDM Narrative: 38-year-old female presents for evaluation of fever and sore throat. She has acute streptococcal pharyngitis infection plan will treat with Augmentin. There is no evidence of abscess or airway involvement. Differential Diagnosis Differential Diagnoses: The differential diagnosis associated with the presentation includes Strep throat Exam to pharyngitis Viral syndrome COVID-19 Otitis media Lab Data Labs: Lab Results 08/02/23 Range/Units 20:37 Influenza Type A (PCR) NEGATIVE (Negative) Influenza Type B (PCR) NEGATIVE (Negative) RSV RNA Qual (PCR) NEGATIVE (Negative) SARS-CoV-2 RNA (RT-PCR) NEGATIVE (Negative) S. pyogenes GrpA MONAE Positive A (Negative) Discharge Plan Discharge Clinical Impression: Acute streptococcal pharyngitis Patient Disposition: Home, Self-Care Instructions: Strep Throat (ED) Additional Instructions: Take Augmentin twice daily for the next 7 days. Use ibuprofen/Tylenol for pain. Drink lots of fluids. Change your toothbrush after you finish her last dose of antibiotics Follow-up to primary doctor Prescriptions: New amoxicillin-pot clavulanate 875-125 mg tablet 1 tab PO Q12H Qty: 14 0RF No Action ergocalciferol (vitamin D2) 1,250 mcg (50,000 unit) capsule 1 cap PO QWEEK sertraline 100 mg tablet 1 tab PO QAM quetiapine 200 mg tablet 1 tab PO BEDTIME Rx Instructions: one 200 mg tab + one 50 mg tab = 250 mg daily ibuprofen 600 mg tablet 600 mg PO Q6H PRN (Reason: fever or pain) Qty: 30 0RF acetaminophen [Tylenol] 325 mg tablet 650 mg PO Q6H PRN (Reason: fever or pain) Qty: 30 0RF Ackworth Saline 0.65 % aerosol,spray 2 spray intranasal Q4H PRN (Reason: nasal congestion) Qty: 50 0RF benzonatate 200 mg capsule 200 mg PO TID PRN (Reason: cough) 7 Days Qty: 15 0RF hydroxyzine HCl 25 mg tablet 25 - 50 mg PO Q6H PRN (Reason: anxiety) perphenazine 2 mg tablet 2 mg PO BID calcium carbonate-vitamin D3 [Oyster Shell Calcium-Vit D3] 500 mg-10 mcg (400 unit) tablet 1 tab PO BID Stand Alone Forms: Work/School Release Interventions: ED Discharge Assessment Last Done: 08/02/23 22:30 Discharge Date/Time: 08/02/23 22:31
--- NOTE | 2023-08-02 22:31 | PC.NURSE ---
pt medicated per mar
== END 2023-08-02 22:31 | disposition home or self-care (01) ==
PROVIDERS: Emergency Provider Internal Medicine; PCP Internal Medicine
DX: J02.0 Streptococcal pharyngitis (principal); R50.9 Fever, unspecified; M79.10 Myalgia, unspecified site; Z20.822 Contact with and (suspected) exposure to COVID-19; Z11.52 Encounter for screening for COVID-19
CPT/HCPCS: 0241U; 87651; 99283

== ENCOUNTER 2023-09-09 13:49 | Outpatient (AMB) | payer MEDICAID, SELFPAY ==
--- NOTE | 2023-09-09 13:55 | A.OFFVIS_ITS ---
Intake Vital Signs 09/09/23 13:56 Height 5 ft 3 in Weight 169 lb 12.095 oz BMI 30.1 BP 119/74 Blood Pressure Location Lt brachial Position Sitting Pulse 80 Intake Visit Reasons: 8 weeks LFTs Intake Note: Nisha presents in the office as a 8 week follow up to her LFTs. CC: She states that she is not having any concerns today. Sandwich Wrapper Required: No Allergies No Known Allergies [No Known Allergies*] Allergy (Verified 09/09/23 13:57) HPI HPI Comments History of Present Illness Details This is a 38y.o F with PMH of who is here for elevated LFTs. 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 07/15/23 Pt reports having intermittent RUQ pain that started around earlier this year associated with nausea. Used to drink etOH up to 4-5 nips of fireball and a 12 pack of beer in one day x 5 years. Has recently hard liqupr quit since her hospital visit earlier this year when she was told about liver inflammation. COntinues to consume 3-4 beers over the weekends still. Sometimes also smokes tobacco. No marijuana or IVDU. Pt also lost almost 30 lbs in the last 3 months after she cut down on drinking as well modified her diet. 09/09/23: Here for follow up for elevated LFTs. Work up done after last visit reviewed w ith the pt. Essentially consistent with elevated LFTs 2/2 etOH use. Pt reports that since last visit has cut down etOH intake to once a week - however still consumes 5-6 beers in that one session. Otherwise no abd pain, N,V, D. No changes in bowel habits. [facility] Medical History Vaginal discharge Abnormal Pap smear of cervix Pulmonary embolism Bilateral pulmonary embolism PE (pulmonary thromboembolism) DVT (deep venous thrombosis) Surgical History Hx of tubal ligation Hx of foot surgery Family History Maternal Aunt Breast cancer Colon cancer Brother Diabetes Sister Diabetes Maternal Aunt Metastasis from esophageal cancer Father Colon cancer Family/Other Colon cancer Social History Household Members: Children Housing: Apartment Are you a primary childcare aide to a significant other at home: No Do you presently have visiting nurse or other home services: No Alcohol intake: never Patient Tobacco Use Status: Current everyday Tobacco user Tobacco use type: Cigarette service: No Current occupational status: unemployed Gender identity: Female Female Reproductive History Menstrual Age of Menarche: 13 Review of Systems Const All systems reviewed & are unremarkable except as noted in HPI and below Physical Exam Vital Signs: Last Vital Signs Pulse 80 09/09/23 13:56 BP 119/74 09/09/23 13:56 BMI result Body Mass Index 30.1 Gen appear: NAD HEENT: nonicteric, no cervical lymphadenopathy Chest: CTA CVS: Regular S1/S2 Abd: soft, nontender, nondistended, bowel sounds + Ext: no peripheral edema Neuro: A/Ox3, noted to move all extremities spontaneously Psych: interacting appropriately Results Reviewed Results Reviewed: Laboratory Tests 12/30/22 07/09/23 07/15/23 15:07 13:35 15:39 Random Glucose 113 % Saturation Ferritin Total Bilirubin AST 53 H 35 H ALT 68 H 48 H Albumin Ceruloplasmin TSH IgG 1358 IgA 355 H Anti-Mitochondrial Ab NEGATIVE Anti-Smooth Muscle Ab <20 Tiss Transglutamin IgA <1.0 PEth 16:0/18.1 (POPEth) 140 (H) PEth 16:0/18.2 (PLPEth) 172 (H) Mayda/Kid Microsom Ab Int <=20.0 Hepatitis A IgG Ab Nonreactive Hep Bs Antigen Negative Hep Bs Antibody REACTIVE Hep B Core Total Ab Nonreactive 07/15/23 07/15/23 15:39 15:39 Random Glucose % Saturation 29 Ferritin 216 H Total Bilirubin 0.2 AST ALT Albumin 4.1 Ceruloplasmin 27 TSH 1.17 IgG IgA Anti-Mitochondrial Ab Anti-Smooth Muscle Ab Tiss Transglutamin IgA PEth 16:0/18.1 (POPEth) PEth 16:0/18.2 (PLPEth) Mayda/Kid Microsom Ab Int Hepatitis A IgG Ab Hep Bs Antigen Hep Bs Antibody Hep B Core Total Ab Assessment & Plan Assessment & Plan (1) Elevated LFTs: Code(s): R79.89 - Other specified abnormal findings of blood chemistry (2) Alcohol use: Code(s): Z78.9 - Other specified health status (3) Obesity: Code(s): E66.9 - Obesity, unspecified Plan Discussed with the pt that based n work up so far consistent wtih initial impression that elevated LFTs are 2/2 a combination of etOH+non-etOH related fatty liver. Remaining chronic liver disease work up negative. Plan: - Pt again strongly advised on abstaining 100% from etOH. No safe minimum. - Fib-4 is 0.66 i.e low suspicion of advanced fibrosis at this time. - Recheck labs and US Abd in 6 months - reminder set Follow up in 6 months Orders: Orders Comprehensive Met. Panel 6 Months - Other specified abnormal findings of blood chemistry Complete Blood Count no Diff 6 Months - Other specified abnormal findings of blood chemistry Prothrombin Time INR 6 Months R7. - Other specified abnormal findings of blood chemistry US abdomen complete 6 Months R7 - Other specified abnormal findings of blood chemistry Coding Level of Care Code Est Pt Level 4 (51758) Diagnoses Elevated LFTs R7. Alcohol use Z78.9 Obesity E66.9
[2023-09-09 13:56] VITALS: BP 119/74; PULSE 80; BMI 30.1
== END 2023-09-09 14:24 | disposition home or self-care (01) ==
PROVIDERS: PCP Internal Medicine; Visit Provider Internal Medicine
DX: R79.89 Other specified abnormal findings of blood chemistry (principal); Z78.9 Other specified health status; E66.9 Obesity, unspecified
CPT/HCPCS: 99214

== ENCOUNTER → 2023-09-09 13:49 | Outpatient (BNVA) | payer MEDICAID, SELFPAY | PROVIDERS: PCP Internal Medicine; Visit Provider Internal Medicine | DX: R79.89 Other specified abnormal findings of blood chemistry (principal); E66.9 Obesity, unspecified; Z78.9 Other specified health status; Z68.30 Body mass index [BMI] 30.0-30.9, adult | CPT/HCPCS: 99212 ==

== ENCOUNTER 2023-10-20 13:48 | Outpatient (AMB) | payer MEDICAID, SELFPAY ==
--- NOTE | 2023-10-20 13:52 | A.OFFVIS_ITS ---
Intake Vital Signs 10/20/23 14:08 Height 5 ft 3 in Weight 169 lb BMI 29.9 BP 120/70 Intake Visit Reasons: vaginal odor and itch Screwdown Operator Required: No Information Interpreted: clinical only Business Broker: Business Broker Present Allergies No Known Allergies [No Known Allergies*] Allergy (Verified 10/20/23 13:53) Medication List - Last Reconciled 10/20/23 by Lois Rubio CNM hydroxyzine HCl 25 - 50 mg PO Q6H PRN ibuprofen 600 mg PO Q6H PRN perphenazine 2 mg PO BID quetiapine 1 tab PO BEDTIME sertraline 1 tab PO QAM Is last menstrual period known: Yes Last menstrual period: 10/16/23 Do you need a note to return to daycare/school/sports/work: No HPI vaginal odor and itch HPI Details patient is here because she had her. On Thursday or Thursday but she has a terrible odor that started Thursday. She had sex with a different person on and she has never smoked this smell before also there was some itching. Also she had some pain but it is not pain when she urinates. She is worried about infection. 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 She also says her (question different person )? Had chlamydia in May but she is not with him anymore and she tested negative. [facility] Medical History Vaginal discharge Abnormal Pap smear of cervix Pulmonary embolism Bilateral pulmonary embolism PE (pulmonary thromboembolism) DVT (deep venous thrombosis) Surgical History Hx of tubal ligation Hx of foot surgery Family History Maternal Aunt Breast cancer Colon cancer Brother Diabetes Sister Diabetes Maternal Aunt Metastasis from esophageal cancer Father Colon cancer Family/Other Colon cancer Social History Household Members: Children Housing: Apartment Are you a primary clinical care leader to a significant other at home: No Do you presently have visiting nurse or other home services: No Alcohol intake: never Patient Tobacco Use Status: Current everyday Tobacco user Tobacco use type: Cigarette service: No Current occupational status: unemployed Gender identity: Female Female Reproductive History Menstrual Age of Menarche: 13 Duration of menses: 3-5 days Date of last menstrual period: 10/16/23 control method: permanent sterilization Total pregnancies: 5 Full term: 5 Date of last pap smear: 02/13/22 History of abnormal pap smear: Yes (2020,abnormal pap ,2018 ,ascust+HPV) Physical Exam Vital Signs: Last Vital Signs BP 120/70 10/20/23 14:08 BMI result Body Mass Index 29.9 Other: scant clear discharge cervix multiparous very anterior uterus is small retroverted mobile nontender. External Female Exam: normal external appearance Speculum Exam - Vagina: normal appearance of the vagina and normal vaginal discharge Speculum Exam - Cervix: normal appearance of the cervix Bimanual exam- vagina & uterus: normal bimanual exam, uterine size normal, consistency normal, uterine mobility normal, uterine shape normal and non-tender Bimanual Exam- Adnexa, other: normal adnexae, no masses and No adnexal tenderness Assessment & Plan Assessment & Plan (1) Vaginal odor: Code(s): N89.8 - Other specified noninflammatory disorders of vagina (2) Vaginal itching: Code(s): N89.8 - Other specified noninflammatory disorders of vagina (3) Pelvic pain: Code(s): R10.2 - Pelvic and perineal pain (4) Herpes: Comment: patient states she is 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 states she herself has never had a lesion more Education given and prescription for Valtrex should she need it for episodic treatment. Code(s): B00.9 - Herpesviral infection, unspecified (5) Encounter for screening examination for sexually transmitted disease: Code(s): Z11.3 - Encounter for screening for infections with a predominantly sexual mode of transmission Plan testing done for gonorrhea chlamydia trichomoniasis bacterial vaginosis and [facility]. Will await the results. I also offered her blood work for the other STIs and will place the order teaching done about why we do not repeatedly test for herpes because once somebody is positive they are always considered to be positive and have antibodies present. I reviewed with her the circumstances under which she might some day get an outbreak for instance if she was ill or otherwise on well or under a lot of stress that could present the opportunity for an outbreak to occur her I offered her medication in case she ever does get an outbreak and she readily accepted and would like it sent to her pharmacy downstairs I am going to send the prescription and I recommend she keep it in a safe place on hand should she ever get an outbreak and I described what would be like and she does remember from her 's experience. We will await the other testing and she also wanted to get blood work for the other STIs such as HIV hepatitis-B and C and syphilis. She may call tomorrow she is worried about results and has not gotten a call yet. Orders: Orders UA CC w/rflx Micro + Cult Today N89.8 - Other specified noninflammatory disorders of vagina, R10.2 - Pelvic and perineal pain HIV Ab/Ag Today Z11.3 - Encounter for screening for infections with a predominantly sexual mode of transmission Syphilis Screen Today Z11.3 - Encounter for screening for infections with a predominantly sexual mode of transmission Hepatitis B Surface Antigen Today Z11.3 - Encounter for screening for infections with a predominantly sexual mode of transmission Hepatitis C Antibody Today Z11.3 - Encounter for screening for infections with a predominantly sexual mode of transmission Medications: New valacyclovir Take 1 tablet for 3-5 days for an outbreak of HSV. 1,000 mg PO DAILY 30 tabs 0RF Coding Level of Care Code Est Pt Level 3 (34233) Diagnoses Vaginal odor N89.8 Vaginal itching N89.8 Pelvic pain R10.2 Herpes B00.9 Encounter for screening examination for sexually transmitted disease Z11.3
[2023-10-20 14:08] VITALS: BP 120/70; BMI 29.9
== END 2023-10-20 14:43 | disposition home or self-care (01) ==
LOC: HO.HWSM 13:48
PROVIDERS: PCP Internal Medicine; Visit Provider Advanced Practice Midwife
DX: N89.8 Other specified noninflammatory disorders of vagina (principal); R10.2 Pelvic and perineal pain; B00.9 Herpesviral infection, unspecified; Z11.3 Encounter for screening for infections with a predominantly sexual mode of transmission
CPT/HCPCS: 99213

== ENCOUNTER 2023-10-20 13:48 | Outpatient (REF) | payer MEDICAID, SELFPAY ==
[2023-10-21 10:51] LABS: CT PCR NOT DETECTED (Not Detect.); NG PCR NOT DETECTED (Not Detect.)
[2023-10-21 10:54] LABS: BV Int Neg Control Negative (Negative); BV Int Pos Control Positive (Positive)
== END 2023-10-20 13:49 | disposition home or self-care (01) ==
LOC: HO.LAB 13:48
PROVIDERS: PCP Internal Medicine; Visit Provider Advanced Practice Midwife
DX: Z20.2 Contact with and (suspected) exposure to infections with a predominantly sexual mode of transmission (principal); N89.8 Other specified noninflammatory disorders of vagina; R10.2 Pelvic and perineal pain; B00.9 Herpesviral infection, unspecified
CPT/HCPCS: 0353U; 87480; 87510; 87660; 99212

== ENCOUNTER 2023-10-26 12:27 | Emergency (ER) | payer MEDICAID, SELFPAY ==
--- NOTE | 2023-10-26 12:43 | ED_ITS ---
HPI - URI/Sore Throat General Chief Complaint: Upper Respiratory Symptoms Stated Complaint: Flu Symptoms Time Seen by Provider: 10/26/23 15:49 Source: patient Mode of arrival: ambulatory Limitations: no limitations History of Present Illness HPI Narrative: Patient is a 38-year-old female presenting to the emergency department with complaint of sore throat, fever and body aches since yesterday. Reports T-max of 102?. Also complains of bilateral ear pain. Denies cough or shortness of breath. Denies abdominal pain, nausea, vomiting, diarrhea. MD elicited complaint: fever, sore throat and other Onset (ago): day(s) Consistency: constant Able to tolerate fluids by mouth: Yes Exacerbating factors: swallowing Relieving factors: NSAID Associated symptoms: fever, chills, myalgias, sore throat and ear pain Treatments prior to arrival: acetaminophen and ibuprofen Related Data Home Medications Medication Instructions Recorded Confirmed quetiapine 200 mg tablet 1 tab PO BEDTIME 12/30/22 10/20/23 sertraline 100 mg tablet 1 tab PO QAM 12/30/22 10/20/23 hydroxyzine HCl 25 mg tablet 25 - 50 mg PO Q6H PRN anxiety 05/20/23 10/20/23 perphenazine 2 mg tablet 2 mg PO BID 05/20/23 10/20/23 Previous Rx's Medication Instructions Recorded ibuprofen 600 mg tablet 600 mg PO Q6H PRN fever or pain 05/20/23 #30 tabs valacyclovir 1 gram tablet 1,000 mg PO DAILY #30 tabs 10/20/23 metronidazole 0.75 % (37.5 mg/5 1 appful vaginal BEDTIME 5 days 10/21/23 gram) vaginal gel #70 grams amoxicillin 875 mg-potassium 1 tab PO BID #13 tabs 10/26/23 clavulanate 125 mg tablet Allergies Allergy/AdvReac Type Severity Reaction Status Date / Time No Known Allergies Allergy Verified 10/26/23 12:46 [No Known Allergies*] Review of Systems Review of Systems: As per HPI. Yes all other systems are reviewed and are negative Constitutional: Constitutional: Reports as per HPI [facility] Past Medical History Medical History Vaginal discharge Abnormal Pap smear of cervix Pulmonary embolism Bilateral pulmonary embolism PE (pulmonary thromboembolism) DVT (deep venous thrombosis) Surgical History Hx of tubal ligation Hx of foot surgery Family History Family History Maternal Aunt Breast cancer Colon cancer Brother Diabetes Sister Diabetes Maternal Aunt Metastasis from esophageal cancer Father Colon cancer Family/Other Colon cancer Social History Social History Household Members: Children Housing: Apartment Are you a primary acute care nurse to a significant other at home: No Do you presently have visiting nurse or other home services: No Alcohol intake: never Patient Tobacco Use Status: Current everyday Tobacco user Tobacco use type: Cigarette Advance Directives: No Advance Directives Information Provided: No service: No Current occupational status: unemployed Gender identity: Female Physical Exam Vital Signs: Vital Signs: Last Vital Signs Temp 100 F 10/26/23 15:46 Pulse 98 10/26/23 15:46 Resp 19 10/26/23 15:46 BP 120/77 10/26/23 15:46 Pulse Ox 97 10/26/23 15:46 O2 Del Method Room Air 10/26/23 15:46 BMI result Body Mass Index 29.8 Vital signs have been reviewed and appear to be correct. Blood pressure normal. Heart rate normal. Respiratory rate normal. Temperature normal. Oxygen saturation normal. Const: General: cooperative, healthy appearing and no acute distress Orientation/consciousness: oriented to person, oriented to place, oriented to time and patient oriented x3 Limitations: no limitations HEENT: Head: Yes normocephalic and Yes atraumatic Ears: external ears normal and TM abnormal wth effusion purulent on the left and erythematous bilateral General nose exam: Normal external nose present Face and sinus: Yes face symmetric Mouth: oropharynx normal and moist mucous membranes Throat: Yes uvula midline, No uvular edema and Yes cobblestoning Eyes: Pupils: Equal, round and reactive pupils present Neck: Neck: Yes normal visual inspection and Yes supple Lymphatic: no lymphadenopathy noted Resp: Effort & Inspection: normal respiratory effort and able to speak in complete sentences Auscultation: clear to auscultation bilaterally Cardio: Rate: regular rate Rhythm: regular rhythm Heart sounds: S1 normal heart sound present and S2 normal heart sound present GI: Palpation (GI): Soft to palpation and nontender Auscultation: normoactive bowel sounds : General: Yes no CVA tenderness Back/Spine/Pelvis: Back: no CVA tenderness Skin: General skin exam: elasticity normal and turgor normal Neuro: General: oriented to person, oriented to place, oriented to time, patient oriented x3, moves all extremities, no focal motor deficits and CN's II- XI intact bilaterally Cranial nerves: Yes Equal, round and reactive pupils present Cognition (Neuro): normal cognition Extrem: General: Yes full ROM, Yes no pedal edema and Yes no calf tenderness Psych: Mental Status: mental status grossly normal Affect: normal affect Thought process: Normal thought process present Course Course Course Narrative: This is a rapid medical exam. Deferred additional HPI, ROS, PE to primary provider. 38 yo female here with fever, body aches, sore throat since yesterday. Will obtain testing for strep, flu/covid/rsv VSS Medical Decision Making Medical Decision Making MDM Narrative: Patient is a 38-year-old female presenting to the emergency department with complaint of sore throat, fever and body aches since yesterday. On exam patient is awake, A+Ox3, VS WNL, afebrile, normal neurological exam without focal deficits, physical exam findings as above. Given reported symptoms and physical exam findings, initial differential includes viral illness, flu, covid, strep pharyngitis, otitis media. Swabs for Covid, flu and strep all negative. Physical exam findings consistent with AOM of left ear. Will treat with augmentin, first dose given in the ED at patient request. Instructed patient follow-up with her primary care provider this week. Return precautions discussed at bedside. Patient verbalized understanding of and agreement with plan. Differential Diagnosis Differential Diagnoses: The differential diagnosis associated with the presentation includes As per MDM. Lab Data [facility] Lab Attestation statement: I reviewed the patient's lab results. As per [facility]. Labs: Lab Results 10/26/23 Range/Units 12:50 Influenza Type A (PCR) NEGATIVE (Negative) Influenza Type B (PCR) NEGATIVE (Negative) RSV RNA Qual (PCR) NEGATIVE (Negative) SARS-CoV-2 RNA (RT-PCR) NEGATIVE (Negative) S. pyogenes GrpA MONAE Negative (Negative) External Record Review External record reviewed: Inpatient record, Office record and Outpatient record Prescription Management I considered prescription management with: Antibiotic Discharge Plan Discharge Clinical Impression: Acute otitis media Qualifiers: Laterality: left Patient Disposition: Home, Self-Care Instructions: Ear Infection (ED) Additional Instructions: You were evaluated in the emergency department today for ear pain. Your evaluation suggests that your pain is due to an ear infection. Please take your prescribed antibiotics as directed for the full course of the medication. Please follow up with your primary care provider within two days. Return to the emergency department if you experience hearing loss, discharge from your ear, headaches, fevers, recurrent vomiting, or any other concerning symptoms. Prescriptions: New amoxicillin-pot clavulanate 875-125 mg tablet 1 tab PO BID Qty: 13 0RF Rx Instructions: First dose administered in the ED. 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
[2023-10-26 12:44] VITALS: BP 135/84; PULSE 97; RESP 20; TEMP 37.5; O2SAT 98; BMI 29.8
[2023-10-26 13:02] LABS: IDNOW Serial# 08D9AD1C; Strep A Nucleic Acid Negative (Negative)
[2023-10-26 13:53] LABS: Influenza A PCR NEGATIVE (Negative); Influenza B PCR NEGATIVE (Negative); Resp Syncy Virus RNA Qual PCR NEGATIVE (Negative); SARS COV2 PCR INHOUSE NEGATIVE (Negative)
[2023-10-26 15:46] VITALS: BP 120/77; PULSE 98; RESP 19; TEMP 37.7; O2SAT 97
[2023-10-26] MEDS: Amoxicillin/Potassium Clav 875 MG TABLET PO (17:12)
== END 2023-10-26 17:26 | disposition home or self-care (01) ==
PROVIDERS: Nurse Practitioner Family; Emergency Provider Emergency Medicine; PCP Internal Medicine
DX: H66.92 Otitis media, unspecified, left ear (principal); Z20.822 Contact with and (suspected) exposure to COVID-19; Z20.828 Contact with and (suspected) exposure to other viral communicable diseases; J02.9 Acute pharyngitis, unspecified; F17.210 Nicotine dependence, cigarettes, uncomplicated
CPT/HCPCS: 0241U; 87651; 99283

== ENCOUNTER 2023-11-30 20:27 | Outpatient (REF) | payer MEDICAID, SELFPAY ==
[2023-12-02 17:34] LABS: C. trachomatis RNA TMA NOT DETECTED (NOT DETECTED); N. gonorrhoeae RNA TMA NOT DETECTED (NOT DETECTED)
== END 2023-11-30 20:28 | disposition home or self-care (01) ==
LOC: HO.HHCLNP 20:27
PROVIDERS: Visit Provider Internal Medicine
DX: N76.1 Subacute and chronic vaginitis (principal)
CPT/HCPCS: 36415; 81513; 87491; 87591

== ENCOUNTER 2023-12-21 09:36 | Emergency (ER) | payer MEDICAID, SELFPAY ==
[2023-12-21 10:01] VITALS: BP 138/89; PULSE 81; RESP 16; TEMP 36.6; O2SAT 99; BMI 31.1
[2023-12-21 10:54] LABS: Appearance Urine Clear; Color Urine Yellow; Glucose Urine UA Negative (Negative); Leukocyte Esterase Urine Negative (Negative); Nitrite Urine Negative (Negative); Urine Blood Negative (Negative); Urine Ketones Negative (Negative); Urine Protein Negative (Neg-Trace)
[2023-12-21 10:55] LABS: UPreg QC Valid YES; Urine Pregnancy NEGATIVE (NEGATIVE)
[2023-12-21 11:37] LABS: Influenza A PCR NEGATIVE (Negative); Influenza B PCR NEGATIVE (Negative); Resp Syncy Virus RNA Qual PCR NEGATIVE (Negative); SARS COV2 PCR INHOUSE NEGATIVE (Negative)
--- NOTE | 2023-12-21 13:09 | ED_ITS ---
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 Patient states that when she moves too quickly she becomes dizzy. Patient denies any lightheadedness, abdominal pain, nausea, vomiting, fever, chills, blurry vision, double vision, loss of vision, chest pain, difficulty breathing, shortness of breath, back pain, night sweats, pain with urination, increased urinary frequency, increased urinary urgency, blood in her urine or stool, syncope or a near syncopal episode, recent trauma or falls, bowel incontinence, bladder incontinence, bowel retention, bladder retention, or any other complaints at this time. Onset (ago): day(s) Severity: mild Relieving factors: none Exacerbating factors: none Associated symptoms: denies other symptoms Treatments prior to arrival: none Related Data Home Medications Medication Instructions Recorded Confirmed quetiapine 200 mg tablet 1 tab PO BEDTIME 12/30/22 10/20/23 sertraline 100 mg tablet 1 tab PO QAM 12/30/22 10/20/23 hydroxyzine HCl 25 mg tablet 25 - 50 mg PO Q6H PRN anxiety 05/20/23 10/20/23 perphenazine 2 mg tablet 2 mg PO BID 05/20/23 10/20/23 Previous Rx's Medication Instructions Recorded ibuprofen 600 mg tablet 600 mg PO Q6H PRN fever or pain 05/20/23 #30 tabs valacyclovir 1 gram tablet 1,000 mg PO DAILY #30 tabs 10/20/23 metronidazole 0.75 % (37.5 mg/5 1 appful vaginal BEDTIME 5 days 10/21/23 gram) vaginal gel #70 grams amoxicillin 875 mg-potassium 1 tab PO BID #13 tabs 10/26/23 clavulanate 125 mg tablet meclizine 12.5 mg tablet 12.5 mg PO TID PRN dizziness #14 12/21/23 tabs Allergies Allergy/AdvReac Type Severity Reaction Status Date / Time No Known Allergies Allergy Verified 10/26/23 12:46 [No Known Allergies*] Review of Systems Constitutional: Constitutional: Reports no additional constitutional complaints, Denies chills, Denies fever(s) and Denies night sweats Eyes: Eyes: Reports no additional eye complaints, Denies blurry vision, Denies change in vision, Denies diplopia, Denies eye discharge, Denies loss of vision and Denies eye pain ENT: Reports dizziness Cardiovascular: Cardiovascular: Reports no additional cardiovascular co mplaints, Denies chest pain, Denies lightheadedness, Denies Loss of Consciousness and Denies dyspnea Respiratory: Respiratory: Reports no additional respiratory complaints and Denies dyspnea Gastrointestinal: Gastrointestinal: Reports no additional gastrointestinal complaints, Denies abdominal pain, Denies melena, Denies hematochezia, Denies change in bowel habits and Denies change in stool character Genitourinary: Genitourinary: Denies hematuria, Denies urinary frequency, Denies dysuria, Denies urinary incontinence, Denies urinary hesitancy and Denies urinary urgency Musculoskeletal: Musculoskeletal: Reports no additional musculoskeletal complaints, Denies numbness and Denies tingling Neurologic: Reports dizziness, Denies loss of vision, Denies numbness and Denies tingling Psychiatric: Psychiatric: Reports no additional psychiatric complaints Endocrine: Endocrine: Reports no additional endocrine complaints Hematologic/Lymphatic: Hematologic/Lymphatic: Reports no additional hem atologic/lymphatic complaints Allergic/Immunologic: Allergic/Immunologic: Reports no additional allergic/immunologic complaints [facility] Past Medical History Attestation statement: The following information was validated with the patient. Source: old records reviewed and nursing notes reviewed Medical History Encounter for screening examination for sexually transmitted disease Obesity Vaginal discharge Vaginal itching Vaginal odor Fracture of orbital floor, blow-out, right, closed Problematic vaginal discharge Bacterial vaginosis Pelvic pain Mass of right breast Microcalcification of left breast on mammography History of abnormal cervical Pap smear Well woman exam with routine gynecological exam Pelvic pain Breast lump Abnormal Pap smear of cervix Pulmonary embolism Bilateral pulmonary embolism PE (pulmonary thromboembolism) DVT (deep venous thrombosis) Surgical History Hx of tubal ligation Hx of foot surgery Family History Family History Maternal Aunt Breast cancer Colon cancer Brother Diabetes Sister Diabetes Maternal Aunt Metastasis from esophageal cancer Father Colon cancer Family/Other Colon cancer Social History Social History Household Members: Children Housing: Apartment Are you a primary toddler caregiver to a significant other at home: No Do you presently have visiting nurse or other home services: No Alcohol intake: never Patient Tobacco Use Status: Current everyday Tobacco user Tobacco use type: Cigarette Advance Directives: No Advance Directives Information Provided: No service: No Current occupational status: unemployed Gender identity: Female Physical Exam ED Vital Signs: Vital Signs - 24 hr 12/21/23 10:01 Temperature 98 F Pulse Rate 81 Respiratory Rate 16 Blood Pressure 138/89 Pulse Oximetry 99 Oxygen Delivery Method Room Air BMI result Body Mass Index 31.1 Const General: cooperative, no acute distress, alert and awake Nutritional Appearance: well nourished Orientation/consciousness: patient oriented x3 Limitations: no limitations HENMT Head: Yes normal to inspection and Yes atraumatic Ears: hearing grossly normal bilaterally and external ears normal General nose exam: Normal external nose present, no nasal discharge noted and no epistaxis Face and sinus: Yes normal facial exam, No abrasion and No laceration Mouth: Normal oral and palatal mucosa present, no drooling and no muffled voice Eyes General: appearance normal, both eyes and all related structures Periorbital: periorbital findings normal Eyelids: Yes eyelids normal Conjunctivae: conjunctivae normal Pupils: Equal, round and reactive pupils present EOM: EOMs intact bilaterally Neck Neck: Yes normal visual inspection, Yes full ROM and Yes no lymphadenopathy Chest Chest palpation & inspection: normal inspection of the chest Resp Effort & Inspection: normal respiratory effort and able to speak in complete sentences Auscultation: clear to auscultation bilaterally Cardio Rate: regular rate Rhythm: regular rhythm GI Inspection: Yes normal to inspection Neuro General: patient oriented x3 and moves all extremities Cranial nerves: Yes Equal, round and reactive pupils present Cognition (Neuro): normal cognition Motor exam (neuro): 5/5 motor strength present throughout Sensory Exam: Normal double simultaneous stimulation for sensation Coordination: efgyef-ke-stfl test normal Extrem General: Yes normal to inspection, Yes full ROM and Yes capillary refill normal Psych Appearance: grossly normal Mental Status: mental status grossly normal Affect: normal affect Attitude: cooperative Thought process: Normal thought process present Thought content: Normal thought content present Insight: Good insight present (Psych) Medical Decision Making Medical Decision Making [facility] Narrative: Patient is a 38 year old assigned female at with a history of vertigo presenting to the emergency department today with intermittent dizziness. Patient's physical exam was unremarkable. Patient's urine showed no acute process. Patient's COVID-19, influenza, and RSV tests were negative. I explained my physical exam findings as well as all test results to the patient. I answered all questions asked by the patient. I stressed the importance of the patient taking her medication as prescribed. I stressed the importance of the patient following up with her primary care provider and a neurologist. I stressed the importance of the patient returning to the emergency department immediately if her symptoms were to worsen or if she were to develop any dizziness, shortness of breath, difficulty breathing, chest pain, blurry vision, loss of vision, nausea, vomiting, abdominal pain, fever, chills, back pain, or any other complaints. Patient verbalized agreement and understanding with this treatment plan and discharge. Differential Diagnosis Differential Diagnoses: The differential diagnosis associated with the presentation includes BPPV Vertigo Dizziness Lightheadedness Admission/Observation Consideration of admission/observation: Escalation of care including admission/observation considered Patient would have been admitted to the hospital had her work up had any findings where hospital admission was appropriate and her clinical presentation warranted hospital admission. Lab Data [facility] Lab Attestation statement: I reviewed the patient's lab results. My interpretation of these results are in the MDM Rationale portion of this note. Labs: Lab Results 12/21/23 12/21/23 Range/Units 10:45 10:46 Urine Color Yellow Urine Appearance Clear Urine pH 5.0 (5.0-9.0) Ur Specific [place] 1.020 (1.005-1.025) Urine Protein Negative (Neg-Trace) mg/dL Urine Glucose (UA) Negative (Negative) mg/dL Urine Ketones Negative (Negative) mg/dL Urine Blood Negative (Negative) Urine Nitrite Negative (Negative) Ur Leukocyte Esterase Negative (Negative) Urine Test NEGATIVE (NEGATIVE) Influenza Type A (MONAE) Cancelled Influenza Type A (PCR) NEGATIVE (Negative) Influenza Type B (MONAE) Cancelled Influenza Type B (PCR) NEGATIVE (Negative) Influenza A & B Note Cancelled RSV RNA Qual (PCR) NEGATIVE (Negative) SARS-CoV-2 RNA (RT-PCR) NEGATIVE (Negative) Discharge Plan Discharge Clinical Impression: Benign paroxysmal positional vertigo Patient Disposition: Home, Self-Care Instructions: Benign Paroxysmal Positional Vertigo (ED) Additional Instructions: Follow up with your primary care provider and a neurologist. Return to the emergency department immediately if your symptoms worsen or if you develop any dizziness, shortness of breath, difficulty breathing, chest pain, blurry vision, loss of vision, nausea, vomiting, abdominal pain, fever, chills, back pain, or any other complaints. Denzel un seguimiento con almanza proveedor de atenci?n primaria y un neur?logo. Regrese al departamento de emergencias inmediatamente si derrick s?ntomas empeoran o si presenta mareos, dificultad para respirar, dificultad para respirar, dolor en el pecho, visi?n borrosa, p?rdida de la visi?n, n?useas, v?mitos, dolor abdominal, fiebre, escalofr?os, dolor de espalda o cualquier otras quejas. Prescriptions: New meclizine 12.5 mg tablet 12.5 mg PO TID PRN (Reason: dizziness) Qty: 14 0RF No Action metronidazole 0.75 % (37.5mg/5 gram) gel 1 appful vaginal BEDTIME 5 Days Qty: 70 0RF sertraline 100 mg tablet 1 tab PO QAM quetiapine 200 mg tablet 1 tab PO BEDTIME Rx Instructions: one 200 mg tab + one 50 mg tab = 250 mg daily ibuprofen 600 mg tablet 600 mg PO Q6H PRN (Reason: fever or pain) Qty: 30 0RF amoxicillin-pot clavulanate 875-125 mg tablet 1 tab PO BID Qty: 13 0RF Rx Instructions: First dose administered in the ED. 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 Referrals: [facility] [place] [facility] [Provider Group] (Call to establish and follow up with a neurologist. Llamar para establecer y anum seguimiento con un neur?logo.) Yolanda Aaron MD [Primary Care Provider] - Stand Alone Forms: Work/School Release Interventions: ED Discharge Assessment Last Done: 12/21/23 13:36 Discharge Date/Time: 12/21/23 13:37 Print Language: Yakut
== END 2023-12-21 13:37 | disposition home or self-care (01) ==
PROVIDERS: Emergency Provider Emergency Medicine; PCP Internal Medicine
DX: H81.10 Benign paroxysmal vertigo, unspecified ear (principal); Z11.52 Encounter for screening for COVID-19; Z20.828 Contact with and (suspected) exposure to other viral communicable diseases
CPT/HCPCS: 0241U; 81003; 81025; 99282; 99283

== ENCOUNTER 2023-12-31 13:48 | Outpatient (REF) | payer MEDICAID, SELFPAY ==
--- NOTE | ~2023-12-31 | MM_ITS ---
EXAMINATION: MM SCREENING DIGITAL BREAST TOMOSYNTHESIS, BILATERAL CLINICAL INFORMATION: Screening. Asymptomatic. COMPARISON: Mammography: This study is compared with prior exams dating back to 2018. TECHNIQUE: Digital breast tomosynthesis is performed in both the craniocaudal and mediolateral oblique views along with computer-aided detection (CAD). Synthesized 2D images are generated from the tomosynthesis. FINDINGS: The breasts are heterogeneously dense, which may obscure small masses (ACR BI-RADS breast composition Category c). There are no significant masses, abnormal calcifications, or other abnormalities. There is a tissue marker in a lobulated mass of the upper inner quadrant of the right breast. This indicates a site of prior benign percutaneous biopsy. There are 2 tissue markers in the superior aspect of the left breast. MM/MM tomosynthesis screening BI IMPRESSION: No mammographic evidence of malignancy. ASSESSMENT: BI-RADS BI-RADS 2 - Benign Findings RECOMMENDATION: Routine annual mammography screening. 1 year F/U This examination should not preclude the clinical evaluation of a suspicious palpable abnormality. This patient's information was entered into a reminder system with a target due date for their next mammogram.
== END 2023-12-31 13:49 | disposition home or self-care (01) ==
LOC: HO.MAMMO 13:48
PROVIDERS: PCP Internal Medicine; Visit Provider Internal Medicine
DX: Z12.31 Encounter for screening mammogram for malignant neoplasm of breast (principal)
CPT/HCPCS: 77063; 77067

== ENCOUNTER → 2023-12-31 14:00 | Outpatient (BNV) | payer MEDICAID, SELFPAY | PROVIDERS: PCP Internal Medicine; Visit Provider Radiology Diagnostic Radiology | DX: Z12.31 Encounter for screening mammogram for malignant neoplasm of breast (principal) | CPT/HCPCS: 77063; 77067 ==

== ENCOUNTER 2024-01-19 09:52 | Outpatient (RCR) | payer MEDICAID, SELFPAY ==
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
== END 2024-04-11 08:50 | disposition home or self-care (01) ==
LOC: HO.PT 09:52
PROVIDERS: PCP Internal Medicine; Visit Provider Internal Medicine
DX: M17.0 Bilateral primary osteoarthritis of knee (principal)
CPT/HCPCS: 97110; 97161

== ENCOUNTER 2024-02-16 13:53 | Outpatient (REF) | payer MEDICAID, SELFPAY ==
[2024-02-16 17:18] LABS: CT PCR NOT DETECTED (Not Detect.); NG PCR NOT DETECTED (Not Detect.)
[2024-02-17 13:25] LABS: BV Int Neg Control Negative (Negative); BV Int Pos Control Positive (Positive)
== END 2024-02-16 13:54 | disposition home or self-care (01) ==
LOC: HO.LNP 13:53
PROVIDERS: PCP Internal Medicine; Visit Provider Advanced Practice Midwife
DX: Z01.419 Encounter for gynecological examination (general) (routine) without abnormal findings (principal); B00.9 Herpesviral infection, unspecified; N89.8 Other specified noninflammatory disorders of vagina; R35.0 Frequency of micturition; R10.2 Pelvic and perineal pain; N64.4 Mastodynia
CPT/HCPCS: 0353U; 87480; 87510; 87660; 99395

== ENCOUNTER 2024-02-16 13:53 | Outpatient (AMB) | payer MEDICAID, SELFPAY ==
--- NOTE | 2024-02-16 13:59 | MHC.OFFVIS ---
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 Doing well with concerns: tested for mycoplasm in [facility] x[facility], after having recurring symptoms along w/BV in the past. She reports a fishy odor, frequency of urination, and pelvic pain. Using Boric Acid, forgot the last dose. She reports tenderness at times from her breast lump on her right breast, known fibroadenoma. She tries to eat healthy and stays active with exercise. Regular monthly menses. Hx. tubal ligation. Currently is sexually active, new partner x 5 months. STI screening offered; she accepts. Denies family history of breast or ovarian. FH-father colon cancer. Last pap smear 2021, negative. [facility] Medical History (Updated 02/16/24 @ 14:46 by Harmony Sheldon CNM) Fibroadenoma Encounter for screening examination for sexually transmitted disease Obesity Vaginal discharge Vaginal itching Vaginal odor Fracture of orbital floor, blow-out, right, closed Problematic vaginal discharge Bacterial vaginosis Mass of right breast Microcalcification of left breast on mammography History of abnormal cervical Pap smear Well woman exam with routine gynecological exam Pelvic pain Breast lump Abnormal Pap smear of cervix Pulmonary embolism Bilateral pulmonary embolism PE (pulmonary thromboembolism) DVT (deep venous thrombosis) Surgical History Hx of tubal ligation Hx of foot surgery Family History Maternal Aunt Breast cancer Colon cancer Brother Diabetes Sister Diabetes Maternal Aunt Metastasis from esophageal cancer Father Colon cancer Family/Other Colon cancer Social History Household Members: Children Housing: Apartment Are you a primary in home caregiver to a significant other at home: No Do you presently have visiting nurse or other home services: No Alcohol intake: never Patient Tobacco Use Status: Current everyday Tobacco user Tobacco use type: Cigarette service: No Current occupational status: unemployed Gender identity: Female Female Reproductive History Menstrual Age of Menarche: 13 Duration of menses: 6-7 days Date of last menstrual period: 02/03/24 control method: permanent sterilization Permanent Sterilization: BTL Total pregnancies: 5 Full term: 5 Number of Living Children: 5 Date of last pap smear: 02/12/22 (neg pap and hpv) History of abnormal pap smear: Yes (05/13 ascus +hpv 10/14 unsat 11/15 neg,neg) Review of Systems Const All systems reviewed & are unremarkable except as noted in HPI and below Reports as per HPI Eyes Reports no additional complaints ENT Reports no additional complaints Card Reports no additional complaints Resp Reports no additional complaints GI Reports as per HPI and Reports no additional complaints Reports as per HPI Musc Reports no additional complaints Skin/Breast Reports as per HPI Neuro Reports no additional complaints Psych Reports no additional complaints Endo Reports no additional complaints Bhupendra/Lymph Reports no additional complaints Aller/Immun Reports no additional complaints Physical Exam Vital Signs: Last Vital Signs BP 94/60 02/16/24 14:01 BMI result Body Mass Index 32.2 Const General: cooperative, healthy appearing, no acute distress, well developed and alert Orientation/consciousness: patient oriented x3 HEENT Head: Yes normal to inspection Eyes General: appearance normal, both eyes and all related structures Neck Neck: Yes normal visual inspection Thyroid: Thyroid normal Chest Other: Breast lump right breast medial aspect at 1-2:00 o'clock Chest palpation & inspection: normal inspection of the chest and other (no puckering, dimpling, peau de orange, retraction, discharge, masses) Breast/axilla inspection: normal inspection of the breasts Breast/axilla palpation: normal palpation of the breasts Resp Effort & Inspection: normal respiratory effort GI Inspection: Yes normal to inspection Palpation (GI): Soft to palpation Rectal Exam - Female: deferred General: Yes bladder normal to palpation External Female Exam: normal external appearance and normal appearance of the urethra Speculum Exam - Vagina: normal appearance of the vagina, normal palpation and normal vaginal discharge Speculum Exam - Cervix: normal appearance of the cervix and normal palpation Bimanual exam- vagina & uterus: normal bimanual exam, normal palpation, uterine size normal, bladder normal to palpation, normal palpation, non-tender and Uterine tenderness (Slightly) Bimanual Exam- Adnexa, other: no masses Skin General skin exam: no rashes or lesions noted Rashes: no rashes Neuro General: patient oriented x3 Cognition (Neuro): normal cognition Extrem General: Yes normal to inspection Psych Attitude: cooperative Thought process: Normal thought process present Assessment & Plan Assessment & Plan (1) Encounter for well woman exam with routine gynecological exam: Code(s): Z01.419 - Encounter for gynecological examination (general) (routine) without abnormal findings (2) Pain in pelvis: Code(s): R10.2 - Pelvic and perineal pain Plan Discussed: Current recommendations for pap smears per ASCCP guidelines. Breast awareness and periodic breast exams. Maintain a healthy lifestyle including a well balanced diet and routine exercise. Plan pelvic ultrasound, GC chlamydia, BV panel, mycoplasma culture. STD blood work. Return to the office in person for ultrasound findings. Urinalysis was negative. Use condoms for STI and prevention. Referral to Dr. Mcqueen, she is interested in lumpectomy for removal of a fibroadenoma. Patient verbalizes understanding and agrees to the plan of care. She was given opportunity to ask questions and all questions were answered to the best of my ability. 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 This note is constructed using voice recognition software. While every effort has been made to ensure accuracy, tower erector errors may have been included. Orders: Orders Hepatitis C Antibody Reflex Today Z20.2 - Contact with and (suspected) exposure to infections with a predominantly sexual mode of transmission Hepatitis B Core Antibody Today Z20.2 - Contact with and (suspected) exposure to infections with a predominantly sexual mode of transmission US pelvic and transvaginal Today R10.2 - Pelvic and perineal pain CT NG by PCR Today B00.9 - Herpesviral infection, unspecified HIV Ab/Ag Today Z20.2 - Contact with and (suspected) exposure to infections with a predominantly sexual mode of transmission Syphilis Screen Today Z20.2 - Contact with and (suspected) exposure to infections with a predominantly sexual mode of transmission Other Ref Test - Misc Today B00.9 - Herpesviral infection, unspecified, Z01.419 - Encounter for gynecological examination (general) (routine) without abnormal findings Bacterial Vaginosis Panel Today B00.9 - Herpesviral infection, unspecified Referrals Breast Surgery Referral D24.9 - Benign neoplasm of unspecified breast Coding Level of Care Code Est Pt Prev Care 18-39y(75866) Diagnoses Encounter for well woman exam with routine gynecological exam Z01.419 Pain in pelvis R10.2
[2024-02-16 14:01] VITALS: BP 94/60; BMI 32.2
== END 2024-02-16 15:06 | disposition home or self-care (01) ==
LOC: HO.HWS 13:53
PROVIDERS: PCP Internal Medicine; Visit Provider Advanced Practice Midwife
DX: Z01.419 Encounter for gynecological examination (general) (routine) without abnormal findings (principal); R10.2 Pelvic and perineal pain
CPT/HCPCS: 99395

== ENCOUNTER 2024-02-26 10:47 | Outpatient (REF) | payer MEDICAID, SELFPAY ==
--- NOTE | ~2024-02-26 | US_ITS ---
EXAMINATION: US PELVIS CLINICAL INFORMATION: Pelvic and perineal pain LMP 02/09/2024 COMPARISON: CT scan abdomen and pelvis 12/05/2022 TECHNIQUE: Ultrasound of the pelvis is performed using both transabdominal and transvaginal transducers along with Doppler. Transvaginal imaging is performed due to inadequate visualization transabdominally. FINDINGS: Uterus: The uterus is retroverted and measures 8.8 x 5.8 x 6.0 cm. No focal fibroid. The endometrial thickness is 1.3 cm. Adnexa: Both ovaries are visualized. There is normal color flow to the adnexa. There is no ovarian torsion. There is no pelvic ascites or fluid collection. Right ovary measures 2.6 x 1.3 x 2.1 cm. Volume 3.7 mL. 0.8 x 0.8 x 1.0 cm simple paraovarian cyst is seen adjacent to the right ovary. This is a benign finding requires no further follow-up. Left ovary measures 2.3 x 1.3 x 1.4 cm. Volume 2.2 mL US/US pelvic and transvaginal IMPRESSION: 1. Retroverted uterus without a focal fibroid. 2. Normal ovaries. 3. 1.0 cm simple right paraovarian cyst. This is a benign finding and requires no further follow-up.
== END 2024-02-26 10:48 | disposition home or self-care (01) ==
LOC: HO.US 10:47
PROVIDERS: PCP Internal Medicine; Visit Provider Internal Medicine
DX: R10.2 Pelvic and perineal pain (principal); R79.89 Other specified abnormal findings of blood chemistry
CPT/HCPCS: 76830; 76856

== ENCOUNTER 2024-03-10 14:39 | Outpatient (AMB) | payer MEDICAID, SELFPAY ==
--- NOTE | 2024-03-10 14:54 | A.OFFVIS_ITS ---
Vital Signs 3 03/10/24 15:04 Height 5 ft 2 in Weight 175 lb BMI 32.0 BP 116/66 Blood Pressure Location Lt brachial Position Sitting Pulse 80 Intake Visit Reasons: Rt breast fibroadenoma, discuss surgical options Intake Note: Patient is seen in office for evaluation of a right breast fibroadenoma. Pt states had bx in the past for the right breast, due to a lump and discomfort, has seen Dr Lemon for fm hx breast cancer, no genetic testing, not sure if she wants the lump removed Secondary Education Professor Required: Yes Secondary Education Professor Language: Beauty Consultant Name: Ludmila RODRIGEZ Information Interpreted: non-clinical & clinical Accompanied by: Self / Same As Patient Allergies No Known Allergies [No Known Allergies*] Allergy (Verified 03/10/24 14:59) Medication List - Last Reconciled 03/10/24 by Joaquín Mcqueen MD hydroxyzine HCl 25 - 50 mg PO Q6H PRN ibuprofen 600 mg PO Q6H PRN meclizine 12.5 mg PO TID PRN metronidazole 500 mg PO BID 7 days perphenazine 2 mg PO BID valacyclovir 1,000 mg PO DAILY HPI Comments Details: 30-year-old female patient, former patient of Dr. Lemon returning for evaluation of bilateral fibroadenomas. She reports some discomfort associated with the fibroadenomas especially in the right breast and is concerned due to her strong family history of breast cancer. She previously underwent sonographic guided core biopsy of the bilateral fibroadenoma which confirmed the diagnosis. A recent mammogram performed on 12/31/2023 revealed stable bilateral fibroadenoma with marking clips. No significant change was identified (BI-RADS 2). She denies any previous breast surgery. [facility] Medical History Fibroadenoma Encounter for screening examination for sexually transmitted disease Obesity Vaginal discharge Vaginal itching Vaginal odor Fracture of orbital floor, blow-out, right, closed Problematic vaginal discharge Bacterial vaginosis Mass of right breast Microcalcification of left breast on mammography History of abnormal cervical Pap smear Well woman exam with routine gynecological exam Pelvic pain Breast lump Abnormal Pap smear of cervix Pulmonary embolism Bilateral pulmonary embolism PE (pulmonary thromboembolism) DVT (deep venous thrombosis) Surgical History Hx of tubal ligation Hx of foot surgery Family History Maternal Aunt Breast cancer, Onset Age: 29 Colon cancer Brother Diabetes Sister Diabetes Maternal Aunt Metastasis from esophageal cancer Father Colon cancer Family/Other Colon cancer Social History Household Members: Children Housing: Apartment Are you a primary career development associate to a significant other at home: No Do you presently have visiting nurse or other home services: No Alcohol intake: never Patient Tobacco Use Status: Current everyday Tobacco user Tobacco use type: Cigarette service: No Current occupational status: unemployed Gender identity: Female Female Reproductive History Menstrual Age of Menarche: 13 Date of last menstrual period: 02/27/24 Total pregnancies: 7 Full term: 5 Number of Living Children: 5 Ab spontaneous: 2 Review of Systems Const All systems reviewed & are unremarkable except as noted in HPI and below Physical Exam Const General: cooperative and no acute distress Nutritional Appearance: well nourished Orientation/consciousness: patient oriented x3 Limitations: no limitations HEENT Head: Yes normocephalic and Yes atraumatic Ears: hearing grossly normal bilaterally Chest Other: Right breast with a palpable mass located in the upper inner quadrant measuring proximally 2 cm in diameter, mobile within the breast tissue and most consistent with a fibroadenoma. No overlying skin changes were appreciated. The remaining breast tissue is soft with no suspicious palpable mass, skin change, or nipple discharge. No axillary lymph nodes are appreciated. Left breast reveals a palpable fibroadenoma just above the nipple in the 12 o'clock position, again mobile within the breast tissue without overlying skin changes. No other suspicious masses are appreciated. Axillary lymph nodes are not appreciated. Chest/axillae images: 2 1. 2. Resp Effort & Inspection: normal respiratory effort, no audible wheezes, no cough and no respiratory distress Cardio Jugular venous distension: no JVD GI Inspection: Yes normal to inspection Skin Other: Warm, dry, no rash Neuro General: patient oriented x3 Extrem General: Yes no clubbing, cyanosis or edema Assessment & Plan Assessment & Plan (1) Fibroadenoma of both breasts: Code(s): D24.1 - Benign neoplasm of right breast; D24.2 - Benign neoplasm of left breast Category: Medical Plan 30-year-old female patient presenting with a known history of bilateral fibroadenoma, confirmed by biopsy and documented by recent mammogram to be unchanged in size. No surgical intervention is required at this time unless the lesion is symptomatic. She does have some mild discomfort associated with the lesion but is concerned about undergoing surgery. I therefore recommended observation at this time. We did discuss genetic testing given her family history of breast cancer. She wishes to proceed with genetic testing and will return when the results return to review the results and discuss recommendations. Coding Level of Care Code New Pt Level 4 (26041) Diagnoses Fibroadenoma of both breasts D24.1; D24.2
[2024-03-10 15:04] VITALS: BP 116/66; PULSE 80; BMI 32.0
== END 2024-03-10 15:19 | disposition home or self-care (01) ==
PROVIDERS: PCP Internal Medicine; Referring Provider Internal Medicine; Visit Provider Surgery
DX: D24.1 Benign neoplasm of right breast (principal); D24.2 Benign neoplasm of left breast
CPT/HCPCS: 99204

== ENCOUNTER → 2024-03-10 14:39 | Outpatient (BNVA) | payer MEDICAID, SELFPAY | PROVIDERS: PCP Internal Medicine; Visit Provider Surgery | DX: D24.1 Benign neoplasm of right breast (principal); D24.2 Benign neoplasm of left breast | CPT/HCPCS: 99202 ==

== ENCOUNTER 2024-03-16 13:49 | Outpatient (AMB) | payer MEDICAID, SELFPAY ==
--- NOTE | 2024-03-16 14:04 | MHC.OFFVIS ---
Vital Signs 03/16/24 14:09 Height 5 ft 2 in Weight 179 lb BMI 32.7 BP 110/62 Intake Visit Reasons: ? BV Information Interpreted: clinical only Surgical Supplies Sterilizer: Surgical Supplies Sterilizer Present Allergies No Known Allergies [No Known Allergies*] Allergy (Verified 03/16/24 14:09) Medication List - Last Reconciled 03/16/24 by Lois Rubio CNM hydroxyzine HCl 25 - 50 mg PO Q6H PRN ibuprofen 600 mg PO Q6H PRN Is last menstrual period known: Yes Last menstrual period: 03/04/24 Do you need a note to return to daycare/school/sports/work: No HPI HPI ? BV: Details: One month after an evaluation by other provider for annual exam and evaluation of vaginal symptoms. She was treated after that visit for bacterial vaginosis she was treated with metronidazole gel but she said she had lots itching after it and then she was given a prescription for miconazole and she said that did not help and she also called then and complained of the same thing and metronidazole tablets were prescribed but she has not taken those. She showed we these on her phone that she had received at [facility]. She actually wants fluconazole which is what she has had in the past for vaginal yeast infections because for her it feels like that although she is complaining of a bad odor which is not symptomatic of yeast. Additionally she said that she had been at [facility] and though translation of the words was challenging she had been diagnosed with mycoplasma there and she showed me the prescription that she was given from [facility] for doxy Cyclen. I shared with her that we do not have the testing readily available year for the mycoplasma on a routine basis.. I inquired also as to whether not she had been using condoms and she indicated that she knew that it was recommended if she can getting bacterial vaginosis I also inquired as to whether not she had diabetes she said she did not but she was told that her blood sugar was elevated but she was not told anything about it on deeper questioning she was also told that she had elevated liver tests. And when I asked her if her doctor had talked to her about recommendations to lose weight and then come back and be checked she acknowledged that that is in fact what the conversation went to I explained the connection between elevated blood sugars and yeast and tried as best I could to describe vaginal milagro as a multitude of different organisms that contribute to the vaginal health and ideally live in [place] until something comes from the outside or some upsets the balance and blood sugar elevation can do that as well. [facility] Medical History (Updated 03/16/24 @ 15:00 by Lois Rubio CNM) Vaginal itching Fibroadenoma Encounter for screening examination for sexually transmitted disease Obesity Vaginal discharge Vaginal odor Fracture of orbital floor, blow-out, right, closed Problematic vaginal discharge Bacterial vaginosis Mass of right breast Microcalcification of left breast on mammography History of abnormal cervical Pap smear Well woman exam with routine gynecological exam Pelvic pain Breast lump Abnormal Pap smear of cervix Pulmonary embolism Bilateral pulmonary embolism PE (pulmonary thromboembolism) DVT (deep venous thrombosis) Surgical History Hx of tubal ligation Hx of foot surgery Family History Maternal Aunt Breast cancer, Onset Age: 29 Colon cancer Brother Diabetes Sister Diabetes Maternal Aunt Metastasis from esophageal cancer Father Colon cancer Family/Other Colon cancer Social History Household Members: Children Housing: Apartment Are you a primary healthcare advisory services manager to a significant other at home: No Do you presently have visiting nurse or other home services: No Alcohol intake: never Patient Tobacco Use Status: Current everyday Tobacco user Tobacco use type: Cigarette service: No Current occupational status: unemployed Gender identity: Female Female Reproductive History Menstrual Age of Menarche: 13 Duration of menses: 3-5 days Date of last menstrual period: 03/04/24 control method: permanent sterilization Total pregnancies: 5 Full term: 5 Physical Exam Vital Signs: Last Vital Signs BP 110/62 03/16/24 14:09 BMI result Body Mass Index 32.7 Other: Her mucosa is pink and healthy appearing there has a scant white somewhat homogeneous thin discharge that possibly could be consistent with bacterial vaginosis but is uncertain. The patient is requesting prescription for dye flu can and so I will oblige her and treat her with that as she has already had treatment with Metrogel and miconazole and has a current prescription pending in the pharmacy for the metronidazole pills did not want to take them External Female Exam: normal external appearance and normal appearance of the urethra Speculum Exam - Vagina: normal appearance of the vagina and normal vaginal discharge Speculum Exam - Cervix: normal appearance of the cervix and Cervical os closed Results Reviewed Results Reviewed: Name: Nisha Brown Age/Sex: 38/F : 1985 Unit#: [id number] Attend Dr: Harmony Sheldon CNM Re02/16/24 Status: DEP REF Location: [facility] Disch: SPEC : [id number] NILSON: 02/16/24 STATUS: COMP REQ : [id number] RECD: 02/16/[address]: Harmony Sheldon CNM COMP: 02/17/24 ENTERED: 02/16/[address]: Yolanda Aaron MD ORDERED: BV Panel Test Result Flag Reference Trichomonas DNA Negative Negative Gardnerella DNA Positive A Negative Serenity DNA Negative Negative Assessment & Plan Assessment & Plan (1) Vaginal itching: Comment: Discussed potential causes and contributing factors at length see note. Code(s): N89.8 - Other specified noninflammatory disorders of vagina Category: Medical Plan One month after an evaluation by other provider for annual exam and evaluation of vaginal symptoms. She was treated after that visit for bacterial vaginosis she was treated with metronidazole gel but she said she had lots itching after it and then she was given a prescription for miconazole and she said that did not help and she also called then and complained of the same thing and metronidazole tablets were prescribed but she has not taken those. She showed we these on her phone that she had received at [facility]. She actually wants fluconazole which is what she has had in the past for vaginal yeast infections because for her it feels like that although she is complaining of a bad odor which is not symptomatic of yeast. Additionally she said that she had been at [facility] and though translation of the words was challenging she had been diagnosed with mycoplasma there and she showed me the prescription that she was given from [facility] for doxy Cyclen. I shared with her that we do not have the testing readily available year for the mycoplasma on a routine basis.. I inquired also as to whether not she had been using condoms and she indicated that she knew that it was recommended if she can getting bacterial vaginosis I also inquired as to whether not she had diabetes she said she did not but she was told that her blood sugar was elevated but she was not told anything about it on deeper questioning she was also told that she had elevated liver tests. And when I asked her if her doctor had talked to her about recommendations to lose weight and then come back and be checked she acknowledged that that is in fact what the conversation went to I explained the connection between elevated blood sugars and yeast and tried as best I could to describe vaginal milagro as a multitude of different organisms that contribute to the vaginal health and ideally live in [place] until something comes from the outside or some upsets the balance and blood sugar elevation can do that as well. Her mucosa is pink and healthy appearing there has a scant white somewhat homogeneous thin discharge that possibly could be consistent with bacterial vaginosis but is uncertain. The patient is requesting prescription for dye flu can and so I will oblige her and treat her with that as she has already had treatment with Metrogel and miconazole and has a current prescription pending in the pharmacy for the metronidazole pills did not want to take them Orders: Orders CT NG by PCR Today Z01.419 - Encounter for gynecological examination (general) (routine) without abnormal findings Bacterial Vaginosis Panel Today N89.8 - Other specified noninflammatory disorders of vagina Medications: New fluconazole may repeat second dose 72 hrs after first dose if symptoms persist 150 mg PO Q3D 2 doses 2 tabs 1RF Coding Level of Care Code Est Pt Level 3 (16594) Diagnoses Vaginal itching N89.8
[2024-03-16 14:09] VITALS: BP 110/62; BMI 32.7
== END 2024-03-16 15:24 | disposition home or self-care (01) ==
LOC: HO.HWSM 14:00
PROVIDERS: PCP Internal Medicine; Visit Provider Advanced Practice Midwife
DX: N89.8 Other specified noninflammatory disorders of vagina (principal)
CPT/HCPCS: 99213

== ENCOUNTER 2024-03-16 14:00 | Outpatient (REF) | payer MEDICAID, SELFPAY ==
[2024-03-17 06:51] LABS: CT PCR NOT DETECTED (Not Detect.); NG PCR NOT DETECTED (Not Detect.)
[2024-03-17 11:18] LABS: Bacterial Vaginosis PCR POSITIVE (Negative); Candida Group PCR NOT DETECTED (Not Detect); Candida glab krusei PCR NOT DETECTED (Not Detect); Trichomonas vaginalis PCR NOT DETECTED (Not Detect)
== END 2024-03-16 14:01 | disposition home or self-care (01) ==
LOC: HO.LAB 14:00
PROVIDERS: PCP Internal Medicine; Visit Provider Advanced Practice Midwife
DX: Z01.419 Encounter for gynecological examination (general) (routine) without abnormal findings (principal); N89.8 Other specified noninflammatory disorders of vagina
CPT/HCPCS: 0352U; 0353U; 99212

== ENCOUNTER 2024-04-03 03:26 | Emergency (ER) | payer MEDICAID, SELFPAY ==
[2024-04-03 03:37] VITALS: BP 131/95; PULSE 103; RESP 18; TEMP 36.8; O2SAT 99; BMI 32.0
== END 2024-04-03 05:12 | disposition left against medical advice (07) ==
PROVIDERS: Emergency Provider Emergency Medicine; PCP Internal Medicine
DX: S09.93XA Unspecified injury of face, initial encounter (principal); Y04.0XXA Assault by unarmed brawl or fight, initial encounter; Y93.9 Activity, unspecified; Y92.9 Unspecified place or not applicable; Y99.9 Unspecified external cause status
CPT/HCPCS: 99281

== ENCOUNTER 2024-04-04 08:31 | Emergency (ER) | payer MEDICAID, SELFPAY ==
[2024-04-04 08:41] VITALS: BP 126/94; PULSE 76; RESP 16; TEMP 36.4; O2SAT 99; BMI 32.2
[2024-04-04 11:06] VITALS: BP 125/84; PULSE 61; TEMP 36.8; O2SAT 100
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
[2024-04-04] MEDS: valACYclovir HCL 1,000 MG TABLET 1000 MG PO (12:08)
[2024-04-04] MEDS: predniSONE 20 MG TABLET PO (12:08)
[2024-04-04 12:25] VITALS: BP 126/72; PULSE 78; RESP 18; TEMP 36.9; O2SAT 99
== END 2024-04-04 12:26 | disposition home or self-care (01) ==
PROVIDERS: Emergency Provider Emergency Medicine; PCP Internal Medicine
DX: B00.9 Herpesviral infection, unspecified (principal); Z86.711 Personal history of pulmonary embolism; Z86.718 Personal history of other venous thrombosis and embolism
CPT/HCPCS: 99283

== ENCOUNTER 2024-04-06 08:09 | Outpatient (REF) | payer MEDICAID, SELFPAY ==
[2024-04-06 08:55] LABS: Hematocrit 40.2 % (37.0-47.0); Hemoglobin 13.1 g/dl (12.0-16.0); Mean Corpuscular HGB Conc 32.6 g/dl (31.0-35.0); Mean Corpuscular Hemoglobin 30.2 pg (27.0-33.0); Mean Corpuscular Volume 92.6 fL (80.0-98.0); Mean Platelet Volume 10.2 fL (9.4-12.3); Platelet Count 295 X10*3/uL (160-400); Red Blood Count 4.34 X10*6/uL (4.20-5.50); Red Cell Distribution Width 12.4 % (11.0-16.0); White Blood Count 9.1 X10*3/uL (4.8-10.8)
[2024-04-06 09:03] LABS: Prothrombin Time 12.2 SEC (11.1-13.3)
[2024-04-06 09:20] LABS: Alanine Aminotransferase 49 U/L (0-31); Albumin Level 3.9 g/dL (3.5-5.0); Alkaline Phosphatase 58 U/L (39-117); Anion Gap 9 (12-20); Aspartate Amino Transferase 31 U/L (5-31); Bilirubin Total 0.4 mg/dL (0.0-1.0); Blood Urea Nitrogen 13 mg/dL (9-16); Calcium 8.9 mg/dL (8.4-10.2); Carbon Dioxide 28 mmol/L (22-29); Chloride 108 mmol/L (96-108); Estimated Glomerular Filt Rate > 60; Glucose Random 95 mg/dL (60-115); Potassium 3.6 mmol/L (3.3-5.1); Sodium 141 mmol/L (135-145); Total Protein 7.2 g/dL (6.5-8.0)
[2024-04-06 09:37] LABS: Syphilis Screen Nonreactive (Nonreactive)
[2024-04-06 09:48] LABS: HIV AB/AG Nonreactive (Nonreactive); HIV Num 1 0.21 S/CO (0.00-0.99); Hepatitis B Core Antibody Nonreactive (Nonreactive); ~Hepatitis C Antibody Nonreactive (Nonreactive)
== END 2024-04-06 08:10 | disposition home or self-care (01) ==
LOC: HO.LAB 08:09
PROVIDERS: Absent Provider Internal Medicine; PCP Internal Medicine; Visit Provider Advanced Practice Midwife
DX: R79.89 Other specified abnormal findings of blood chemistry (principal); Z20.2 Contact with and (suspected) exposure to infections with a predominantly sexual mode of transmission
CPT/HCPCS: 36415; 80053; 85027; 85610; 86704; 86780; 86803; 87389

== ENCOUNTER 2024-06-08 20:46 | Emergency (ER) | payer MEDICAID, SELFPAY ==
[2024-06-08 21:09] VITALS: BP 112/70; PULSE 67; RESP 18; TEMP 37.3; O2SAT 99; BMI 32.7
[2024-06-08 22:05] LABS: MANUAL DIFF FLAG NO
[2024-06-08 22:13] LABS: Basophils Percent Auto 0.5 % (0-2); Eosinophils Absolute Auto 0.1 X10*3/uL (0.0-0.4); Eosinophils Percent Auto 0.7 % (0-4); Hematocrit 39.8 % (37.0-47.0); Hemoglobin 13.3 g/dl (12.0-16.0); Imm Gran Abs Auto 0.04 X10*3/uL (0.00-0.03); Imm Gran Pct Auto 0.5 % (0.0-0.4); Lymphocytes Absolute Auto 2.5 X10*3/uL (1.2-4.9); Mean Corpuscular HGB Conc 33.4 g/dl (31.0-35.0); Mean Corpuscular Hemoglobin 30.5 pg (27.0-33.0); Mean Corpuscular Volume 91.3 fL (80.0-98.0); Monocytes Absolute Auto 0.7 X10*3/uL (0.1-1.2); Neutrophils Absolute Auto 5.3 x10*3/uL (2.0-8.3); Neutrophils Percent Auto 61.3 % (45-73); Platelet Count 276 X10*3/uL (160-400); Red Blood Count 4.36 X10*6/uL (4.20-5.50); Red Cell Distribution Width 12.4 % (11.0-16.0); White Blood Count 8.7 X10*3/uL (4.8-10.8)
[2024-06-08 22:20] LABS: Anion Gap 10 (12-20); Blood Urea Nitrogen 12 mg/dL (9-16); Calcium 9.1 mg/dL (8.4-10.2); Carbon Dioxide 27 mmol/L (22-29); Chloride 109 mmol/L (96-108); Creatinine Clr Calc Pharmacy 94.3; Estimated Glomerular Filt Rate > 60; Glucose Random 92 mg/dL (60-115); Potassium 3.9 mmol/L (3.3-5.1); Sodium 142 mmol/L (135-145)
[2024-06-09 00:16] VITALS: BP 127/75; PULSE 76; RESP 26; TEMP 37.2; O2SAT 99
[2024-06-09 00:46] VITALS: BP 116/69; PULSE 80; RESP 20; TEMP 37; O2SAT 97
--- NOTE | 2024-06-09 03:19 | ECG_ITS ---
Test Reason : DIZZINESS Blood Pressure : / mmHG Vent. Rate : 068 BPM Atrial Rate : 068 BPM P-R Int : 156 ms QRS Dur : 086 ms QT Int : 402 ms P-R-T Axes : 006 064 033 degrees QTc Int : 427 ms Normal sinus rhythm Normal ECG When compared with ECG of 10-NOV-2022 17:46, No significant change was found Referred By: Lela Swartz Electronically Signed By:FRITZ RODRIGUEZ
[2024-06-09 03:39] VITALS: BP 109/71; BP 121/78; PULSE 67; PULSE 70
[2024-06-09 03:40] VITALS: BP 117/77; BP 121/78; PULSE 70; PULSE 73; RESP 18; TEMP 37.1; O2SAT 100
--- NOTE | 2024-06-09 03:41 | MHC.EDTECH ---
EKG taken per order and sighed by provider,orthostatic vitals completed per order,rounds completed,call sierra in reach
[2024-06-09 03:51] LABS: Troponin-I High Sensitivity < 2.7 ng/L (<3.5-17.0)
[2024-06-09 03:53] LABS: HCG Quantitative < 2 mIU/mL
--- NOTE | 2024-06-09 04:45 | ED_ITS ---
HPI - Dizziness General Chief Complaint: Dizziness Stated Complaint: dizziness Time Seen by Provider: 06/09/24 04:38 Source: patient Mode of arrival: ambulatory Limitations: no limitations History of Present Illness ED Provider: Dr. Lela Swartz HPI Narrative: Patient comes to the emergency room complaining of dizziness. Patient states that sometimes when she stands up or walks she feels that the room is spinning and unstable. Patient states that this time she does not feel that way. Patient states it is variable, denies any syncopal episode or falls. Denies any headache. Patient denies any chest pain or any symptoms at this time. Patient is not dizzy at this time Related Data Home Medications ?Medication ?Instructions ?Recorded ?Confirmed hydroxyzine HCl 25 mg tablet 25 - 50 mg PO Q6H PRN anxiety 05/20/23 03/16/24 Previous Rx's ?Medication ?Instructions ?Recorded ibuprofen 600 mg tablet 600 mg PO Q6H PRN fever or pain 05/20/23 #30 tabs fluconazole 150 mg tablet 150 mg PO Q3D 2 doses #2 tabs 03/16/24 metronidazole 500 mg tablet 500 mg PO BID 7 days #14 tabs 03/17/24 prednisone 20 mg tablet 20 mg PO DAILY 7 days #7 tabs 04/04/24 valacyclovir 1 gram tablet 1,000 mg PO BID 7 days #14 tabs 04/04/24 (Valtrex) meclizine 50 mg tablet 50 mg PO TID PRN dizziness #14 tabs 06/09/24 Allergies Allergy/AdvReac Type Severity Reaction Status Date / Time Penicillins AdvReac vaginal Verified 06/08/24 21:12 itching Review of Systems 2 Review of Systems: Constitutional : No Weight loss, No Fever, No Chills, No Night Sweats, No Fatigue, No Malaise ENT/Mouth : No Hearing loss, No Ear Pain, No Nasal Congestion, No Sinus Pain, No Hoarseness, No sore throat, No Rhinorrhea, No Swallowing Difficulty Eyes: No Eye Pain, No Swelling, No Redness, No Foreign Body, No Discharge, No Vision Changes Cardiovascular : No Chest Pain, No SOB, No Dyspnea on Exertion, No Orthopnea, No Edema, No Palpitations Respiratory : No Cough, No Sputum, No Wheezing, No Smoke Exposure, No Dyspnea Gastrointestinal : No Nausea, No Vomiting, No Diarrhea, No Constipation, No abdominal Pain, No Hematochezia, No Melena Genitourinary : no irregular bleeding, No Dysuria, No Urinary Frequency, No Hematuria, No Urinary Incontinence, No Urgency, No Flank Pain, No Urinary Flow Changes, No Hesitancy Musculoskeletal : No joint pain, No Myalgias, No Joint Swelling Skin : No Skin Lesions, No rash Neuro : No Weakness, No Numbness, No Paresthesias, No Loss of Consciousness, complaining of dizziness described as lightheadedness, room spinning, intermittent, not constant, no headache Psych : No Anxiety/Panic, No Depression, No SI/HI/AH/VH, No Social Issues, Heme/Lymph: No Bruising, No Bleeding,No Lymphadenopathy Endocrine : No Polyuria, No Polydipsia, No Temperature Intolerance PMFSH Past Medical History Medical History Vaginal itching Fibroadenoma Encounter for screening examination for sexually transmitted disease Obesity Vaginal discharge Vaginal odor Fracture of orbital floor, blow-out, right, closed Problematic vaginal discharge Bacterial vaginosis Mass of right breast Microcalcification of left breast on mammography History of abnormal cervical Pap smear Well woman exam with routine gynecological exam Pelvic pain Breast lump Abnormal Pap smear of cervix Pulmonary embolism Bilateral pulmonary embolism PE (pulmonary thromboembolism) DVT (deep venous thrombosis) Surgical History Hx of tubal ligation Hx of foot surgery Family History Family History Maternal Aunt Breast cancer, Onset Age: 29 Colon cancer Brother Diabetes Sister Diabetes Maternal Aunt Metastasis from esophageal cancer Father Colon cancer Family/Other Colon cancer Social History Social History Household Members: Children Housing: Apartment Are you a primary manager home healthcare to a significant other at home: No Do you presently have visiting nurse or other home services: No Alcohol intake: never Patient Tobacco Use Status: Current everyday Tobacco user Tobacco use type: Cigarette Use of substances other than those prescribed or required for medical reasons: No Advance Directives: No Advance Directives Information Provided: Yes Patient : No service: No Current occupational status: unemployed Gender identity: Female Physical Exam 2 Vital Signs: Vital Signs: Last Vital Signs Temp 98.7 F 06/09/24 03:40 Pulse 70 06/09/24 03:40 Resp 18 06/09/24 03:40 BP 121/78 06/09/24 03:40 Pulse Ox 100 06/09/24 03:40 O2 Del Method Room Air 06/09/24 03:40 BMI result Body Mass Index 32.7 Const: Other: Appearance: Alert. Oriented X3. No acute distress. Eyes: Pupils equal, round and reactive to light. ENT: Pharynx normal. Neck: Normal inspection. Neck supple. No lymph nodes noted. No crepitus CVS: Normal heart rate and rhythm. Pulses normal. Normal S1 and S2 Respiratory: No respiratory distress. Breath sounds normal. No Wheezing. No rales Abdomen: Soft and nontender. No rigidity. No distention. Skin: Skin warm and dry. Normal skin color. Normal skin turgor. Extremities: No lower extremity edema. No Lacerations. No Rash Neuro: Oriented X 3. No motor deficit. No sensory deficit. Moving all extremities. No slurred speech. CN 2 through 12 grossly intact Psych: calm, cooperative, normal affect Medical Decision Making Medical Decision Making [facility] Narrative: My interpretation of labs: Normal hematology, normal chemistry, hCG negative, troponin negative -orthostatic vitals negative -normal vitals -patient was able to ambulate to the bathroom by herself, unassisted without any dizziness chest pain or shortness of breath -my interpretation of EKG: Normal sinus rhythm, heart rate 68, no ST segment depression or elevation, no T-wave inversion, QTC 427 -patient has good truncal stability, normal gait, intermittent symptoms, CVA/TIA not suspected Differential Diagnosis Differential Diagnoses: The differential diagnosis associated with the presentation includes (BPPV, orthostatic hypotension, dehydration) Admission/Observation Consideration of admission/observation: Escalation of care including admission/observation considered (Given patient's symptoms, observation was considered) Lab Data [facility] Lab Attestation statement: I reviewed the patient's lab results. 06/08/24 21:59 06/08/24 21:59 Labs: Lab Results 06/08/24 Range/Units 21:59 WBC 8.7 (4.8-10.8) X10*3/uL RBC 4.36 (4.20-5.50) X10*6/uL Hgb 13.3 (12.0-16.0) g/dl Hct 39.8 (37.0-47.0) % MCV 91.3 (80.0-98.0) fL MCH 30.5 (27.0-33.0) pg MCHC 33.4 (31.0-35.0) g/dl RDW 12.4 (11.0-16.0) % Plt Count 276 (160-400) X10*3/uL MPV 10.0 (9.4-12.3) fL Immature Gran % (Auto) 0.5 H (0.0-0.4) % Neut % (Auto) 61.3 (45-73) % Lymph % (Auto) 29.0 (20-40) % [place] % (Auto) 8.0 (2-11) % Eos % (Auto) 0.7 (0-4) % Baso % (Auto) 0.5 (0-2) % Lymph # (Auto) 2.5 (1.2-4.9) X10*3/uL [place] # (Auto) 0.7 (0.1-1.2) X10*3/uL Eos # (Auto) 0.1 (0.0-0.4) X10*3/uL Baso # (Auto) 0.0 (0.0-0.2) X10*3/uL Abs Immat Gran (auto) 0.04 H (0.00-0.03) X10*3/uL Absolute Neuts (auto) 5.3 (2.0-8.3) x10*3/uL Absolute Nucleated RBC 0.000 (0.0-0.012) X10*3/uL Nucleated RBC % (auto) 0.0 (0.0-0.2) /100WBC Sodium 142 (135-145) mmol/L Potassium 3.9 (3.3-5.1) mmol/L Chloride 109 H (96-108) mmol/L Carbon Dioxide 27 (22-29) mmol/L Anion Gap 10 L (12-20) BUN 12 (9-16) mg/dL Creatinine 0.79 (0.5-1.4) mg/dL Estim Creat Clear Calc 94.3 Estimated GFR > 60 Random Glucose 92 (60-115) mg/dL Calcium 9.1 (8.4-10.2) mg/dL Troponin I High Sens < 2.7 (<3.5-17.0) ng/L Beta HCG, Quant < 2 mIU/mL Independent Interpretation I performed an independent interpretation of an: EKG Discharge Plan Discharge Clinical Impression: Dizziness Patient Disposition: Home, Self-Care Instructions: Dizziness (ED) Additional Instructions: Please follow-up with your primary care physician tomorrow. If you have any worsening or new symptoms, please return to the emergency room or call 911 Prescriptions: New meclizine 50 mg tablet 50 mg PO TID PRN (Reason: dizziness) Qty: 14 0RF No Action metronidazole 500 mg tablet 500 mg PO BID 7 Days Qty: 14 0RF Rx Instructions: Take with food, Avoid alcohol and vinegar products ibuprofen 600 mg tablet 600 mg PO Q6H PRN (Reason: fever or pain) Qty: 30 0RF prednisone 20 mg tablet 20 mg PO DAILY 7 Days Qty: 7 0RF valacyclovir [Valtrex] 1 gram tablet 1,000 mg PO BID 7 Days Qty: 14 0RF hydroxyzine HCl 25 mg tablet 25 - 50 mg PO Q6H PRN (Reason: anxiety) fluconazole 150 mg tablet 150 mg PO Q3D 0 Days Qty: 2 1RF Rx Instructions: may repeat second dose 72 hrs after first dose if symptoms persist Stand Alone Forms: Work/School Release Print Language: Setswana
[2024-06-09 05:00] VITALS: BP 121/78; PULSE 70; RESP 18; TEMP 37.1; O2SAT 100
== END 2024-06-09 05:07 | disposition home or self-care (01) ==
PROVIDERS: Emergency Provider Emergency Medicine; PCP Internal Medicine
DX: R42 Dizziness and giddiness (principal); F17.210 Nicotine dependence, cigarettes, uncomplicated; Z79.899 Other long term (current) drug therapy
CPT/HCPCS: 36415; 80048; 84484; 84702; 85025; 93005; 99283; 99285

== ENCOUNTER 2024-06-16 13:02 | Outpatient (REF) | payer MEDICAID, SELFPAY ==
[2024-06-16 19:23] LABS: D Dimer High Sensitivity 831 NG/ML
== END 2024-06-16 13:03 | disposition home or self-care (01) ==
LOC: HO.HHCL 13:02
PROVIDERS: Visit Provider Internal Medicine
DX: D68.59 Other primary thrombophilia (principal); R60.0 Localized edema
CPT/HCPCS: 36415; 85379

== ENCOUNTER 2024-06-16 15:19 | Outpatient (REF) | payer MEDICAID, SELFPAY ==
--- NOTE | ~2024-06-16 | US_ITS ---
EXAMINATION: US TRIPLEX LOWER EXTREMITY, LEFT CLINICAL INFORMATION: Edema, rule out DVT COMPARISON: None available. TECHNIQUE: Color-flow triplex imaging with spectral analysis and compression Doppler were performed on the left lower extremity. FINDINGS: Respiratory variation, normal compression and augmented flow are noted throughout the left lower extremity. The visualized common femoral vein, superficial femoral vein, profunda femoral vein, popliteal vein and midcalf peroneal and posterior tibial venous segments show no evidence of deep venous thrombosis. A 3.0 x 0.4 cm left inguinal node and not enlarged by short axis criteria and maintains normal fatty hilar architecture. US/US venous duplex LE LT IMPRESSION: No evidence of deep venous thrombosis involving the left lower extremity. Electronically signed by: Molly Jimenez MD 06/16/2024 04:55 PM EDT
== END 2024-06-16 15:20 | disposition home or self-care (01) ==
LOC: HO.US 15:19
PROVIDERS: PCP Internal Medicine; Visit Provider Internal Medicine
DX: R60.0 Localized edema (principal)
CPT/HCPCS: 36415; 85379; 93971

== ENCOUNTER 2024-08-02 09:57 | Outpatient (AMB) | payer MEDICAID, SELFPAY ==
[2024-08-02 09:59] VITALS: BP 100/64; BMI 30.7
--- NOTE | 2024-08-02 09:59 | A.OFFVIS_ITS ---
Vital Signs 08/02/24 09:59 Height 5 ft 4 in Weight 179 lb BMI 30.7 BP 100/64 Intake Visit Reasons: vaginal itching Intake Note: vag itching, odor and discharge Vending Machine Refiller Required: No Vending Machine Refiller Services: Vending Machine Refiller Offered & Declined Disease Case Manager Rn: Disease Case Manager Rn Present (Maggy) Allergies Penicillins Adverse Reaction (Verified 08/02/24 09:59) vaginal itching Is last menstrual period known: Yes Last menstrual period: 07/11/24 HPI Comments Details: Patient is here today with concerns of increased vaginal discharge, odor, itching. She is prone to BV has been treated over several months for current episodes. She admits to occasional cramping, denies any urinary symptoms. She reports being with the same monogamous person and would like to have STD testing. Additionally ultrasound follow up today. [facility] Medical History Vaginal itching Fibroadenoma Encounter for screening examination for sexually transmitted disease Obesity Vaginal discharge Vaginal odor Fracture of orbital floor, blow-out, right, closed Problematic vaginal discharge Bacterial vaginosis Mass of right breast Microcalcification of left breast on mammography History of abnormal cervical Pap smear Well woman exam with routine gynecological exam Pelvic pain Breast lump Abnormal Pap smear of cervix Pulmonary embolism Bilateral pulmonary embolism PE (pulmonary thromboembolism) DVT (deep venous thrombosis) Surgical History Hx of tubal ligation Hx of foot surgery Family History Maternal Aunt Breast cancer, Onset Age: 29 Colon cancer Brother Diabetes Sister Diabetes Maternal Aunt Metastasis from esophageal cancer Father Colon cancer Family/Other Colon cancer Social History Household Members: Children Housing: Apartment Are you a primary lead caregiver to a significant other at home: No Do you presently have visiting nurse or other home services: No Alcohol intake: never Patient Tobacco Use Status: Current everyday Tobacco user Tobacco use type: Cigarette service: No Current occupational status: unemployed Gender identity: Female Female Reproductive History Menstrual Age of Menarche: 13 Date of last menstrual period: 07/11/24 Review of Systems Const All systems reviewed & are unremarkable except as noted in HPI and below Physical Exam Vital Signs: Last Vital Signs BP 100/64 08/02/24 09:59 BMI result Body Mass Index 30.7 Const General: cooperative, healthy appearing and no acute distress Orientation/consciousness: patient oriented x3 GI Inspection: Yes normal to inspection Palpation (GI): Soft to palpation and Other GI palpation findings present (Nontender) Rectal Exam - Female: visual inspection normal General: Yes bladder normal to palpation External Female Exam: normal appearance of the urethra Speculum Exam - Vagina: normal appearance of the vagina, normal palpation and abnormal vaginal discharge frothy Speculum Exam - Cervix: normal appearance of the cervix and normal palpation Bimanual exam- vagina & uterus: normal bimanual exam, normal palpation, uterine size normal, bladder normal to palpation, normal palpation, uterine shape normal, non-tender and Uterine tenderness (She reports slight crampy) Bimanual Exam- Adnexa, other: normal adnexae Neuro General: patient oriented x3 Assessment & Plan Assessment & Plan (1) Vaginal itching: Code(s): N89.8 - Other specified noninflammatory disorders of vagina Category: Medical (2) Vaginal odor: Code(s): N89.8 - Other specified noninflammatory disorders of vagina (3) Encounter to discuss test results: Code(s): Z71.2 - Person consulting for explanation of examination or test findings (4) Possible exposure to STD: Code(s): Z20.2 - Contact with and (suspected) exposure to infections with a predominantly sexual mode of transmission Plan Discussed: Ultrasound findings-small 1 cm benign cyst, no need for further follow up. Treatment option for BV, she prefers oral tablets. And she request a Diflucan as she reports it always triggers a yeast infection, she is to use the Diflucan in the last day of her antibacterial meds. Plan STD screening labs today. She is annual exam already scheduled. She reports she used a gel provided by a [facility] provider in the past that worked for BV, she also tried a [employer] brand which was not compatible she does not know the name of the product. I advised her to research the product name to see if we have that available. Reviewed the role in use of boric acid for prevention. All of her questions and concerns were addressed to the best of my ability and shared decision making. She is agreeable to the plan of care. This note is constructed using voice recognition software. While every effort has been made to ensure accuracy, color specialist errors may have been included. Orders: Orders Syphilis Screen Today Z20.2 - Contact with and (suspected) exposure to infections with a predominantly sexual mode of transmission Bacterial Vaginosis Panel Today N89.8 - Other specified noninflammatory disorders of vagina HIV Ab/Ag Today Z20.2 - Contact with and (suspected) exposure to infections with a predominantly sexual mode of transmission Hepatitis C Antibody Reflex Today Z20.2 - Contact with and (suspected) exposure to infections with a predominantly sexual mode of transmission Hepatitis B Core Antibody Today Z20.2 - Contact with and (suspected) exposure to infections with a predominantly sexual mode of transmission CT NG by PCR Today N89.8 - Other specified noninflammatory disorders of vagina Medications: New metronidazole 500 mg PO Q12H 7 days 14 tabs 0RF fluconazole 150 mg PO ONCE 1 day 1 tab 0RF personal Coding Level of Care Code Est Pt Level 3 (37191) Diagnoses Vaginal itching N89.8 Vaginal odor N89.8 Encounter to discuss test results Z71.2 Possible exposure to STD Z20.2
== END 2024-08-02 10:27 | disposition home or self-care (01) ==
PROVIDERS: PCP Internal Medicine; Visit Provider Advanced Practice Midwife
DX: N89.8 Other specified noninflammatory disorders of vagina (principal); Z71.2 Person consulting for explanation of examination or test findings; Z20.2 Contact with and (suspected) exposure to infections with a predominantly sexual mode of transmission
CPT/HCPCS: 99213

== ENCOUNTER 2024-08-02 09:57 | Outpatient (REF) | payer MEDICAID, SELFPAY ==
[2024-08-02 13:10] LABS: HBc Num1 0.14 S/CO (0.00-0.79); HIV AB/AG Nonreactive (Nonreactive); HIV Num 1 0.32 S/CO (0.00-0.99); Hepatitis B Core Antibody Nonreactive (Nonreactive); Syphilis Screen Nonreactive (Nonreactive); ~HepC Num1 0.11 S/CO (0.00-0.79); ~Hepatitis C Antibody Nonreactive (Nonreactive)
[2024-08-02 15:08] LABS: CT PCR NOT DETECTED (Not Detect.); NG PCR NOT DETECTED (Not Detect.)
[2024-08-03 14:28] LABS: Bacterial Vaginosis PCR POSITIVE (Negative); Candida Group PCR NOT DETECTED (Not Detect); Candida glab krusei PCR NOT DETECTED (Not Detect); Trichomonas vaginalis PCR NOT DETECTED (Not Detect)
== END 2024-08-02 09:58 | disposition home or self-care (01) ==
LOC: HO.LAB 09:57
PROVIDERS: PCP Internal Medicine; Visit Provider Advanced Practice Midwife
DX: Z20.2 Contact with and (suspected) exposure to infections with a predominantly sexual mode of transmission (principal); N89.8 Other specified noninflammatory disorders of vagina; Z71.2 Person consulting for explanation of examination or test findings
CPT/HCPCS: 0352U; 86704; 86780; 86803; 87389; 87491; 87591; 99212

== ENCOUNTER 2024-08-02 10:19 | Outpatient (REF) | payer MEDICAID, SELFPAY | END 2024-08-02 10:20 | disposition home or self-care (01) | LOC: HO.LNP 10:19 | PROVIDERS: Visit Provider Advanced Practice Midwife | DX: Z13.89 Encounter for screening for other disorder (principal) ==

== ENCOUNTER 2024-09-05 11:34 | Outpatient (REF) | payer MEDICAID, SELFPAY ==
[2024-09-05 17:21] LABS: Bacterial Vaginosis PCR POSITIVE (Negative); Candida Group PCR DETECTED (Not Detect); Candida glab krusei PCR NOT DETECTED (Not Detect); Trichomonas vaginalis PCR NOT DETECTED (Not Detect)
[2024-09-05 17:53] LABS: CT PCR NOT DETECTED (Not Detect.); NG PCR NOT DETECTED (Not Detect.)
[2024-09-06 08:25] LABS: Syphilis Screen Nonreactive (Nonreactive)
[2024-09-06 08:38] LABS: HBsAGNum1 0.29 S/CO (0.00-0.99); HIV AB/AG Nonreactive (Nonreactive); HIV Num 1 0.24 S/CO (0.00-0.99); Hepatitis B Surface Antigen Negative (Negative); ~HepC Num1 0.11 S/CO (0.00-0.79); ~Hepatitis C Antibody Nonreactive (Nonreactive)
== END 2024-09-05 11:35 | disposition home or self-care (01) ==
LOC: HO.LNP 11:34
PROVIDERS: PCP Internal Medicine; Visit Provider Obstetrics & Gynecology
DX: B96.89 Other specified bacterial agents as the cause of diseases classified elsewhere (principal); N76.0 Acute vaginitis
CPT/HCPCS: 0352U; 86780; 86803; 87340; 87389; 87491; 87591; 99212

== ENCOUNTER 2024-09-05 11:34 | Outpatient (AMB) | payer MEDICAID, SELFPAY ==
--- NOTE | 2024-09-05 11:42 | MHC.OFFVIS ---
Vital Signs 09/05/24 11:49 Height 5 ft 4 in Weight 178 lb 9.191 oz BMI 30.6 Intake Visit Reasons: Vaginal odor Sand Technician Required: Yes Sand Technician Language: Inspector Barrel Services: Sand Technician Present (in person) Sand Technician Name: Jo RODRIGEZ Information Interpreted: non-clinical & clinical Helper Maintenance Cleaning: Helper Maintenance Cleaning Present (Jo RODRIGEZ) Accompanied by: Self / Same As Patient Allergies Penicillins Adverse Reaction (Verified 09/05/24 11:50) vaginal itching Is last menstrual period known: Yes Last menstrual period: 08/06/24 HPI Comments Details: Presenting complaining of vaginal discharge associated with vaginal odor with no vaginal itching, the patient developed allergic reaction to metronidazole p.o. and vaginal PFSH Medical History (Updated 09/05/24 @ 12:15 by Nj Varner MD) Bacterial vaginosis Vaginal itching Fibroadenoma Encounter for screening examination for sexually transmitted disease Obesity Vaginal discharge Vaginal odor Fracture of orbital floor, blow-out, right, closed Problematic vaginal discharge Mass of right breast Microcalcification of left breast on mammography History of abnormal cervical Pap smear Well woman exam with routine gynecological exam Pelvic pain Breast lump Abnormal Pap smear of cervix Pulmonary embolism Bilateral pulmonary embolism PE (pulmonary thromboembolism) DVT (deep venous thrombosis) Surgical History Hx of tubal ligation Hx of foot surgery Family History Maternal Aunt Breast cancer, Onset Age: 29 Colon cancer Brother Diabetes Sister Diabetes Maternal Aunt Metastasis from esophageal cancer Father Colon cancer Family/Other Colon cancer Social History Household Members: Children Housing: Apartment Are you a primary manager of care to a significant other at home: No Do you presently have visiting nurse or other home services: No Alcohol intake: never Patient Tobacco Use Status: Current everyday Tobacco user Tobacco use type: Cigarette service: No Current occupational status: unemployed Gender identity: Female Female Reproductive History Menstrual Age of Menarche: 13 Date of last menstrual period: 08/06/24 Review of Systems Const All systems reviewed & are unremarkable except as noted in HPI and below Physical Exam Vital Signs: BMI result Body Mass Index 30.6 General: Yes no CVA tenderness External Female Exam: normal external appearance and normal appearance of the urethra Speculum Exam - Vagina: normal appearance of the vagina, normal palpation, no lesions and no masses Speculum Exam - Cervix: normal appearance of the cervix, normal palpation, no lesions, no masses and nontender Bimanual exam- vagina & uterus: normal bimanual exam, normal palpation, uterine size normal, normal palpation, uterine shape normal, No Cervical tenderness present and non-tender Bimanual Exam- Adnexa, other: normal adnexae Back/Spine/Pelvis Back: no CVA tenderness Assessment & Plan Assessment & Plan (1) Bacterial vaginosis: Code(s): N76.0 - Acute vaginitis; B96.89 - Other specified bacterial agents as the cause of diseases classified elsewhere Category: Medical Plan: GC and chlamydia cultures with BV panel taken. Per CDC recommendation, will screen for STI, HepBs Ag, HIV, RPR, Hep C Ab ordered. Will treat with clindamycin cream 2% 5 g applicator intravaginally at bedtime for 7 days, Instructions given to the patient to refrain from sexual activity or to use condoms consistently and correctly during the BV treatment regimen, not to douch, it might increase the risk for relapse, and to call if symptoms persist or recur. Orders: Orders Hepatitis B Surface Antigen Today B96.89 - Other specified bacterial agents as the cause of diseases classified elsewhere, N76.0 - Acute vaginitis Hepatitis C Antibody Today B96.89 - Other specified bacterial agents as the cause of diseases classified elsewhere, N76.0 - Acute vaginitis Syphilis Screen Today B96.89 - Other specified bacterial agents as the cause of diseases classified elsewhere, N76.0 - Acute vaginitis HIV Ab/Ag Today B96.89 - Other specified bacterial agents as the cause of diseases classified elsewhere, N76.0 - Acute vaginitis Medications: New clindamycin phosphate 2% 1 appful vaginal DAILY 40 grams 0RF Coding Level of Care Code Est Pt Level 3 (39936) Diagnoses Bacterial vaginosis N76.0; B96.89
[2024-09-05 11:49] VITALS: BMI 30.6
== END 2024-09-05 12:38 | disposition home or self-care (01) ==
LOC: HO.HWS 11:34
PROVIDERS: PCP Internal Medicine; Visit Provider Obstetrics & Gynecology
DX: N76.0 Acute vaginitis (principal); B96.89 Other specified bacterial agents as the cause of diseases classified elsewhere
CPT/HCPCS: 99213

== ENCOUNTER 2024-09-05 12:20 | Outpatient (REF) | payer MEDICAID, SELFPAY | END 2024-09-05 12:21 | disposition home or self-care (01) | LOC: HO.LAB 12:20 | PROVIDERS: PCP Internal Medicine; Visit Provider Obstetrics & Gynecology | DX: Z13.89 Encounter for screening for other disorder (principal) ==

== ENCOUNTER 2024-10-07 13:17 | Outpatient (AMB) | payer MEDICAID, SELFPAY ==
[2024-10-07 13:30] VITALS: BP 100/80; PULSE 84; O2SAT 99; BMI 30.9
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
== END 2024-10-07 14:52 | disposition home or self-care (01) ==
PROVIDERS: PCP Internal Medicine; Visit Provider Nurse Practitioner Family
DX: H81.10 Benign paroxysmal vertigo, unspecified ear (principal); R06.83 Snoring; G47.9 Sleep disorder, unspecified; G47.19 Other hypersomnia; R42 Dizziness and giddiness
CPT/HCPCS: 99204

== ENCOUNTER → 2024-10-07 13:17 | Outpatient (BNVA) | payer MEDICAID, SELFPAY | PROVIDERS: PCP Internal Medicine; Visit Provider Nurse Practitioner Family | DX: H81.10 Benign paroxysmal vertigo, unspecified ear (principal); G47.9 Sleep disorder, unspecified; G47.19 Other hypersomnia; R42 Dizziness and giddiness; R06.83 Snoring | CPT/HCPCS: 99212 ==

== ENCOUNTER 2024-10-20 18:22 | Outpatient (REF) | payer MEDICAID, SELFPAY ==
[2024-10-21 04:44] LABS: CT PCR NOT DETECTED (Not Detect.); NG PCR NOT DETECTED (Not Detect.)
[2024-10-21 08:28] LABS: Bacterial Vaginosis PCR POSITIVE (Negative); Candida Group PCR DETECTED (Not Detect); Candida glab krusei PCR NOT DETECTED (Not Detect); Trichomonas vaginalis PCR NOT DETECTED (Not Detect)
== END 2024-10-20 18:23 | disposition home or self-care (01) ==
LOC: HO.HHCLNP 18:22
PROVIDERS: Visit Provider Internal Medicine
DX: N76.1 Subacute and chronic vaginitis (principal)
CPT/HCPCS: 0352U; 87491; 87591

== ENCOUNTER 2024-11-10 08:59 | Outpatient (RCR) | payer MEDICAID, SELFPAY ==
[2024-11-10 09:05] VITALS: BP 107/65; PULSE 82
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
--- NOTE | 2025-01-02 11:46 | MHC.PT.DC ---
[facility] [place] Office [place] Office [place] [facility] [address] Susy Alaniz [address] [phone] F: [phone] F: [phone] F: [phone] F: [phone] Physical Therapy Discharge Report Diagnosis: BPPV Date of Surgery: NA Date of Evaluation: 11/10/24 Date of Discharge: 01/02/25 Treatments to Date: 1 Cancellations to Date: 0 No Shows to Date: 0 Discharge Status: Visit Non-compliance Discharge Summary: Nisha only made 1 appointment post evaluation and she no showed for this. She has not called in over a month to make more appointments. She is therefore being d/c from PT for non compliance. Electronically signed by: Tamar Whitlock PT DPT Please sign and return to therapist. Thank you for your referral.
== END 2025-01-02 11:46 | disposition home or self-care (01) ==
LOC: HO.PT 08:59
PROVIDERS: PCP Internal Medicine; Visit Provider Nurse Practitioner Family
DX: H81.10 Benign paroxysmal vertigo, unspecified ear (principal)
CPT/HCPCS: 95992; 97112; 97161

== ENCOUNTER 2024-11-17 09:43 | Outpatient (REF) | payer MEDICAID, SELFPAY | END 2024-11-17 09:44 | disposition home or self-care (01) | LOC: HO.HHCX 09:43 | PROVIDERS: Visit Provider Internal Medicine | DX: Z13.89 Encounter for screening for other disorder (principal) ==

== ENCOUNTER → 2024-11-24 08:01 | Outpatient (REF) | payer MEDICAID, SELFPAY ==
--- OUTSIDE RECORDS SUMMARY | 2024-11-24 10:54 | XMS_ITS | Clinical Summary ---
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 09/05/2024, 05/2024, 04/06/2024, Additional history exists Hepatitis C Screening Completed 09/05/2024 , 08/02/2024, 04/06/2024, Additional history exists HIB Vaccines Aged Out No longer eligi ble based on patient's age to complete this topic HPV Vaccines Aged Out No longer eligi ble based on patient's age to complete this topic IPV Vaccines Aged Out No longer eligi ble based on patient's age to complete this topic Meningococcal Vaccine Aged Out No sandra emiliana eligible based on patient's age to complete this topic RSV under 20 months Aged Out No longe r eligible based on patient's age to complete this topic Rotavirus Vaccines Aged Out No longer eligible based on patient's age to complete this topic Procedures Procedure Name Priority Date/Time Associated Diagnosis Comments POCT URINALYSIS DIPSTICK Routine 10/20/2024 12:43 PM EST Acute vaginitis BACTERIAL VAGINOSIS PANEL Routine 10/20/2024 12:33 PM EST CHLAMYDIA/N. GONORRHOEAE RNA, TMA, UROGENITAL Routine 10/20/2024 12:33 PM EST Subacute vaginitis POCT INFLUENZA B Routine 10/20/2024 12:0 4 PM EST Body aches POCT INFLUENZA A Routine 10/20/2024 12:0 4 PM EST Body aches POCT RAPID COVID ANTIGEN Routine 10/20/2024 12:04 PM EST Body aches BACTERIAL VAGINOSIS PANEL Routine 09/05/2024 3:06 PM EST HEPATITIS B SURFACE ANTIGEN, EIA Routine 09/05/2024 12:36 PM EST HIV 1/2 ANTIGEN/ANTIBODY, FOURTH GENERATION W/RFL Routine 09/05/2024 12:36 PM EST HEPATITIS C ANTIBODY Routine 09/05/2024 12:36 PM EST SYPHILIS SCREEN Routine 09/05/2024 12:36 PM EST CHLAMYDIA/N. GONORRHOEAE RNA, TMA, UROGENITAL Routine 09/05/2024 12:36 PM EST BI MAMMOGRAM SCREENING TOMOSYNTHESIS BILATERAL Routine 12/31/2023 2:10 PM EST ZZZ HISTORICAL HPV E6/E7 RFLX XENIA 16 18/45 Routine 02/12/2022 3:42 PM EDT HM PAP/HPV Routine 02/12/2022 from Last 3 Months or Most Recently Relevant to Health Maintenance Results * POCT Urinalysis (10/20/2024 12:43 PM EST) Color, UA Yellow Clarity, UA Clear Glucose, UA Negative Bilirubin, UA Negative Ketones, UA Positive Comment:trace Spec Grav, UA 1.025 Blood, UA Negative Negative, None Detected pH, UA 6.0 Protein, UA Negative Urobilinogen, UA 2.0 Leukocytes, UA Negative Negative, Rare, Trace Nitrite, UA Negative Negative, None Detected Appearance, UA clear QC Media Lot # [id number] Lot# Expiration Date [id number] Urine 10/20/2024 12:4 3 PM EST Yolanda Aaron MD POINT OF CARE TEST ENTER /EDIT ORDERABLES Final Result * (ABNORMAL) Bacterial Vaginosis (10/20/2024 12:33 PM EST) Only the most recent of2 resultswithin the time period is included. TRICHOMONAS VAGINALIS DETECTION BY PCR NOT DETECTED Not Detect [facility] BACTERIAL VAGINOSIS DETECTION BY PCR POSITIVE(A) Negative [facility] Comment:The BV organism targ ets of the Xpert Xpress MVP test can becommensal in women; Xpert Xpress MVP positive results forbacterial vaginosis should be considered in conjunction withother clinical and patient information to determine thedisease status. Organisms that are not detected by the XpertXpress MVP test have also been reported to be associatedwith BV and aerobic vaginitis.The Xpert Xpress MVP test performance has not been evaluatedin patients under the age of 14. SERENITY GROUP DETECTION BY PCR DETECTED(A) Not Detect [facility] Serenity glab krusei PCR NOT DETECTED Not Detect [facility] 10/20/2024 12:3 3 PM EST 10/20/2024 6:23 PM EST Yolanda Aaron MD LAB MICROBIOLOGY - GENER AL ORDERABLES Final Result [facility] [address] [place] [phone] * Chlamydia/N. Gonorrhoeae RNA, TMA, Urogenitial (10/20/2024 12:33 PM EST) Only the most recent of2 resultswithin the time period is included. CT PCR NOT DETECTED Not Detect. [facility] Comment:A not detected test result does not exclude the possibilityof infection because test results can be affected byimproper specimen collection, concurrent antibiotic therapy,or the number of organisms in the specimen which may bebelow the sensitivity of the test. As with many diagnostictests, results from the Xpert CT/NG assay should beinterpreted in conjunction with other laboratory andclinical data available to the clinician.Xpert CT/NG performance has not been evaluated in patientsless than 14 years of age. The assay should not be used forthe evaluationof suspected sexual abuse or for other medico-legalindications. Additional testing is recommended in anycircumstance when false positive or false negative resultscould lead to adverse medical, social or psychologicalconsequences. NG PCR NOT DETECTED Not Detect. [facility] Comment:A not detected test result does not exclude the possibilityof infection because test results can be affected byimproper specimen collection, concurrent antibiotic therapy,or the number of organisms in the specimen which may bebelow the sensitivity of the test. As with many diagnostictests, results from the Xpert CT/NG assay should beinterpreted in conjunction with other laboratory andclinical data available to the clinician.Xpert CT/NG performance has not been evaluated in patientsless than 14 years of age. The assay should not be used forthe evaluationof suspected sexual abuse or for other medico-legalindications. Additional testing is recommended in anycircumstance when false positive or false negative resultscould lead to adverse medical, social or psychologicalconsequences. Swab Vaginal structure / Unknown 10/20/2024 12:33 PM EST 10/20/2024 6:23 PM EST Narrative [facility] - 10/21/2024 4:45 AM EST Vaginal us Yolanda Aaron MD LAB MICROBIOLOGY - GENER AL ORDERABLES Final Result [facility] [address] [place] [phone] * POCT Rapid Covid-19 BinaxNOW (10/20/2024 12:04 PM EST) Rapid COVID Ag Negative QC Media Lot # [id number] Lot# Expiration Date [id number] Swab 10/20/2024 12:0 4 PM EST Yolanda Aaron MD POINT OF CARE TEST ENTER /EDIT ORDERABLES Final Result * POCT Rapid Influenza B OSOM (10/20/2024 12:04 PM EST) Pathologist [facility] Rapid Influenza B Ag Negative Negative, Indeterminate QC Media Lot # [id number] Lot# Expiration Date Swab 10/20/2024 12:0 4 PM EST Yolanda Aaron MD POINT OF CARE TEST ENTER /EDIT ORDERABLES Final Result * POCT Rapid Influenza A OSOM (10/20/2024 12:04 PM EST) [facility] Rapid Influenza A Ag Negative Negative, Indeterminate QC Media Lot # [id number] Lot# Expiration Date Swab Nasopharyngeal structure / Unknown 10/20/2024 12:04 PM EST Yolanda Aaron MD POINT OF CARE TEST ENTER /EDIT ORDERABLES Final Result * Syphilis Screen (09/05/2024 12:36 PM EST) [facility] Syphilis Screen Nonreactive Nonreactive [facility] 09/05/2024 12:3 6 PM EST 09/05/2024 12:36 PM EST Generic External Data Provider LAB BLOOD ORDERAB LES Final Result [facility] [address] [place] [address] [phone] * Hepatitis C Ab (09/05/2024 12:36 PM EST) [facility] Hepatitis C Antibody Nonreactive Nonreactive [facility] Comment:Antibodies to HCV no t detected; does not exclude early acuteHCV infection. 09/05/2024 12:3 6 PM EST 09/05/2024 12:36 PM EST us Generic External Data Provider LAB BLOOD ORDERAB LES Final Result Performing Organization Address [facility] Co de Phone Number [facility] [address] [place] [phone] * Hepatitis B surface antigen, EIA (09/05/2024 12:36 PM EST) Hepatitis B Surface Ag Negative Negative [facility] 09/05/2024 12:3 6 PM EST 09/05/2024 12:36 PM EST [employer] External Data Provider LAB BLOOD ORDERAB LES Final Result Performing Organization Address [facility] Phone Number [facility] [address] [place] [phone] * HIV-1/2 Antigen and Antibodies, Fourth Generation, with Reflexes (09/05/2024 12:36 PM EST) HIV AB/AG Nonreactive Nonreactive [facility] Comment:HIV-1 p24 Ag and/or HIV-1/HIV-2 Ab not detected.A test result that is nonreactive does not exclude thepossibility of exposure to or infection with HIV-1 and/orHIV-2. Nonreactive results in this assay for individualswith prior exposure to HIV-1 and/or HIV-2 may be due toantigen and antibody levels that are below the limit ofdetection of this assay.The [employer] [place] HIV Ag/Ab Combo assay result andsupplemental assay results should be interpreted inconjunction with the patient's clinical presentation,history and other laboratory results. If the results areinconsistent with clinical evidence, additional testing issuggested to confirm the result. 09/05/2024 12:3 6 PM EST 09/05/2024 12:36 PM EST Generic External Data Provider LAB BLOOD ORDERAB LES Final Result Performing Organization Address [facility] Co de Phone Number [facility] [address] [place] [phone] * BI Mammogram Screening Tomosynthesis Bilateral (12/31/2023 2:10 PM EST) Anatomical Region Laterality Modality Breast Bilateral Mammography 12/31/2023 2:10 PM EST Narrative 01/11/2024 5:44 AM EDT ? [facility] ? [address] ?[place] [address] ? Mammography Report ? Signed ? Patient: Nisha Brown ?MR# ?? : [id number] ? : 1985 ?Acct:[id number] ? Age/Sex: 38 / F ?ADM Date: 12/31/23 ? Loc: HO.MAMMO ? Attending Dr: Yolanda Aaron MD ? Ordering Physician: Yolanda Aaron MD ?Results: 2Be ?? nign Findings ? Date of Service: 12/31/23 ?Follow Up: 1 Year From Orig ?? inal Mammogram ? Procedure(s): MM tomosynthesis screening BI ?? Accession Number(s): [id number] ? cc: Yolanda Aaron MD ? EXAMINATION: ?? MM SCREENING DIGITAL BREAST TOMOSYNTHESIS, BILATERAL ? CLINICAL INFORMATION: ? Screening. Asymptomatic. ? COMPARISON: ?? Mammography: This study is compared with prior exams dating back to ?? 2017. ? TECHNIQUE: ?? Digital breast tomosynthesis is performed in both the craniocaudal and ?? mediolateral oblique views along with computer-aided detection (CAD). ?? Synthesized 2D images are generated from the tomosynthesis. ? FINDINGS: ?? The breasts are heterogeneously dense, which may obscure small masses ?? (ACR BI-RADS breast composition Category c). ? There are no significant masses, abnormal calcifications, or other ?? abnormalities. ? There is a tissue marker in a lobulated mass of the upper inner ?? quadrant of the right breast. This indicates a site of prior benign ?? percutaneous biopsy. ?? There are 2 tissue markers in the superior aspect of the left breast. ? MM/MM tomosynthesis screening BI ?? IMPRESSION: ?? No mammographic evidence of malignancy. ? ASSESSMENT: ? BI-RADS BI-RADS 2 - Benign Findings ? RECOMMENDATION: ?? Routine annual mammography screening. ? 1 year F/U ? This examination should not preclude the clinical evaluation of a ?? suspicious palpable abnormality. ? This patient's information was entered into a reminder system with a ?? target due date for their next mammogram. ? Dictated By: ?Lisa Guaman MD ? Signed By: ?<Electronically signed by Lisa Guaman MD in OV> ? 01/11/24 0540 ? DD/ 1410 ? TD/TT: ? Supervising Chef: ? Procedure Note Ade, Isidro - 01/11/2024 [facility] [address] [place], [place] [address] Mammography Report Signed Patient: Kiki Brown# : [id number] : 1985Acct:[id number] Age/Sex: 38 / FADM Date: 12/31/23 Loc: HO.MAMMO Attending Dr: Yolanda Aaron MD Ordering Physician: Yolanda Aaronesults: 2Be nign Findings Date of Service: 12/31/23Follow Up: 1 Year From Orig ina Mammogram Procedure(s): MM tomosynthesis screening BI Accession Number(s): [id number] cc: Yolanda Aaron MD EXAMINATION: MM SCREENING DIGITAL BREAST TOMOSYNTHESIS, BILATERAL CLINICAL INFORMATION: Screening. Asymptomatic. COMPARISON: Mammography: This study is compared with prior exams dating back to 2018. TECHNIQUE: Digital breast tomosynthesis is performed in both the craniocaudal and mediolateral oblique views along with computer-aided detection (CAD). Synthesized 2D images are generated from the tomosynthesis. FINDINGS: The breasts are heterogeneously dense, which may obscure small masses (ACR BI-RADS breast composition Category c). There are no significant masses, abnormal calcifications, or other abnormalities. There is a tissue marker in a lobulated mass of the upper inner quadrant of the right breast. This indicates a site of prior benign percutaneous biopsy. There are 2 tissue markers in the superior aspect of the left breast. MM/MM tomosynthesis screening BI IMPRESSION: No mammographic evidence of malignancy. ASSESSMENT: BI-RADS BI-RADS 2 - Benign Findings RECOMMENDATION: Routine annual mammography screening. 1 year F/U This examination should not preclude the clinical evaluation of a suspicious palpable abnormality. This patient's information was entered into a reminder system with a target due date for their next mammogram. Dictated By: Lisa Guaman MD Signed By: <Electronically signed by Lisa Guaman MD in OV> 01/11/24 0540 DD/ 1410 TD/TT: Supervising Chef: Yolanda Aaron MD [facility] BI PROCEDURES Final Result * HPV E6/E7 RFLX XENIA 16 18/45 (02/12/2022 3:42 PM EDT) HPV mRNA E6/E7 rflx Not Detected Not Detected [facility] Comment: Methodology: Spice Cleaner-Mediated Amplification This assay detects E6/E7 viral messenger RNA (mRNA) from 14 high-risk HPV types (16,18,31,33,35,39,45,51,52,56,58,59,66,68). The analytical performance characteristics of this assay have been determined by [employer]. The modifications have not been cleared or approved by the FDA. This assay has been validated pursuant to the CLIA regulations and is used for clinical purposes. For additional information, please refer to http://education.[employer]/faq/TUA347r8 (This link if provided for information/ educational purposes only.) THIS TEST WAS PERFORMED AT: [facility] [address] [place] [address] [address] [place], [place] ??[phone] TREY MCELROY MD 02/12/2022 3:42 PM EDT [facility] HISTORICAL/NON ORDERABLE LABS Fi nal Result Performing Organization Address City/State/[facility] Co de Phone Number [facility] [address] * Hm Pap Smear (02/12/2022) Historical Provider HEALTH MAINTENANCE Final Result from Last 3 Months or Most Recently Relevant to Health Maintenance Insurance [facility] C3 Care Teams Coal Mine Inspector Relationship Specialty Start Date End Date Yolanda Aaron MD [address] [place] [phone] PCP - General Family Medicine 08/16/18
--- OUTSIDE RECORDS SUMMARY | 2024-11-24 10:54 | XMS_ITS | Encounter Summary ---
Author Organization [employer] Address [address] [place] [address] Care Team Providers Care Slubber Runner Name Role Phone Yolanda Aaron MD Primary Care Provider + Cris Cabrera RN Unavailable [phone] Encounter Details Date Type Department Care Team (Late st Contact Info) Description 08/05/2023 Abstract [facility] [address] [place], [place] [phone] Yolanda Aaron MD [address] [place] [phone] Social History Tobacco Use Types Packs/Day Years Used Date Smoking Tobacco: Every Day Cigarettes Passive Smoke Exposure: Current Smokeless Tobacco: Never Alcohol Use Standard Drinks/Week Comments Yes 0 (1 standard drink = 0.6 oz pur e alcohol) oca Depression Answer Date Recorded Patient Health Questionnaire-9 Score 10 06/08/2023 Housing Stability Answer Date Recorded What is your housing situation today? I have xaviryan kaminski 08/04/[address] you li ve. Do you have problems with any of the following? Pests such as bugs, ants, or mice 08/04/2023 Food Insecurity Answer Date Recorded Within the past 12 months, y ou worried that your food would run out before you got money to buy more: Never True 08/04/2023 Within the past 12 months,th e food you bought just didn't last and you didn't have enough money to get more: Never True 07/2023 Transportation Answer Date Recorded In the past 12 months, has l ack of transportation kept you from medical appts, meetings, work or from getting things needed for daily living? No 08/04/2023 Utilities Answer Date Recorded In the past 12 months, has t he electric, gas, oil or water company threatened to shut off services in your home? Yes 08/04/2023 Depression Answer Date Recorded Patient Health Questionnaire-2 Score 2 06/08/2023 Comments Unknown Sex and Gender Information Value Date Recorded Sex Assigned at Female 08/04/2023 11:25 AM EDT Legal Sex Female 4:19 PM EDT Gender Identity Female 08/04/2023 11:25 AM EDT Sexual Orientation Lesbian or Hein 08/04/2023 11 :25 AM EDT Sexual Orientation Straight 08/04/2023 11 :25 AM EDT documented as of this encounter Plan of Treatment Upcoming Encounters Date Type Department Care Team (Late st Contact Info) Description 12/21/2024 9:00 AM EST Office Visit [facility] [address] [place] [phone] Yolanda Aaron MD [address] [place] [phone] documented as of this encounter Visit Diagnoses Not on filedocumented in this encounter Additional Health Concerns Assessment Noted Time PHQ-9 Depression Total Score: 023 3:33 PM EDT documented as of this encounter Care Teams Slubber Runner Relationship Specialty Start Date End Date Yolanda Aaron MD [address] [place] [address] PCP - General Family Medicine 08/16/18 Cris Cabrera RN [address] [place] [phone] Top LoaderPaint Tinter 04/25/24 08/03/24 documented as of this encounter
--- OUTSIDE RECORDS SUMMARY | 2024-11-24 10:54 | XMS_ITS | Encounter Summary ---
Author Organization [employer] Address [address] [place] [address] [place] [address] Care Team Providers Care Project Controls Specialist Name Role Phone Yolanda Aaron MD Primary Care Provider + Cris Cabrera RN Unavailable [phone] Encounter Details Date Type Department Care Team (Late st Contact Info) Description 12/24/2022 Orders Only [facility] [address] [place], [place] [phone] Yolanda Aaron MD [address] [place], [place] [phone] Social History Tobacco Use Types Packs/Day Years Used Date Smoking Tobacco: Every Day Cigarettes Passive Smoke Exposure: Current Smokeless Tobacco: Never Alcohol Use Standard Drinks/Week Comments Yes 0 (1 standard drink = 0.6 oz pur e alcohol) Comments Unknown Sex and Gender Information Value Date Recorded Sex Assigned at Female 08/04/2023 11:25 AM EDT Legal Sex Female 4:19 PM EDT Gender Identity Female 08/04/2023 11:25 AM EDT Sexual Orientation Lesbian or Hein 08/04/2023 11 :25 AM EDT Sexual Orientation Straight 08/04/2023 11 :25 AM EDT COVID-19 Exposure Response Date Recorded In the last 10 days, have yo u been in contact with someone who was confirmed or suspected to have Coronavirus/COVID-19? No / Unsure 12/02/2022 11:19 AM EST documented as of this encounter Plan of Treatment Upcoming Encounters Date Type Department Care Team (Late st Contact Info) Description 12/21/2024 9:00 AM EST Office Visit [facility]INE [address] [place] [phone] Yolanda Aaron MD [address] [place] [address] documented as of this encounter Visit Diagnoses Not on filedocumented in this encounter Additional Health Concerns Assessment Noted Time PHQ-9 Depression Total Score: 11 023 11:41 AM EST documented as of this encounter Care Teams Project Controls Specialist Relationship Specialty Start Date End Date Yolanda Aaron MD [address] [place] [phone] PCP - General Family Medicine 08/16/18 Cris Cabrera RN [address] [place] [phone] Work Over Rig OperatorPipe Bender 04/25/24 08/03/24 documented as of this encounter
--- OUTSIDE RECORDS SUMMARY | 2024-11-24 10:54 | XMS_ITS | Encounter Summary ---
Author Organization [employer] Address [address] [place] [address] Care Team Providers Care Surgery Manager Name Role Phone Yolanda Aaron MD Primary Care Provider + Cris Cabrera RN Unavailable Encounter Details Date Type Department Care Team (Late st Contact Info) Description 12/01/2022 Abstract [facility] [address] [place], [place] [phone] Yolanda Aaron MD [address] [place], [place] [phone] Social History Tobacco Use Types Packs/Day Years [...] Description 12/21/2024 9:00 AM EST Office Visit [facility] [address] [place] [phone] Yolanda Aaron MD [address] [place] [phone] documented as of this encounter Visit Diagnoses Not on filedocumented in this encounter Additional Health Concerns Assessment Noted Time PHQ-9 Depression Total Score: 11 023 11:41 AM EST documented as of this encounter Care Teams Surgery Manager Relationship Specialty Start Date End Date Yolanda Aaron MD [address] [place] [address] PCP - General Family Medicine 08/16/18 Cris Cabrera RN [address] [place] [phone] Blunger Machine OperatorCircus Hand 04/25/24 08/03/24 documented as of this encounter
--- OUTSIDE RECORDS SUMMARY | 2024-11-24 10:54 | XMS_ITS | Encounter Summary ---
Author Organization [employer] Address [address] [place] [address] Care Team Providers Care Child Care Lead Teacher Name Role Phone Yolanda Aaron MD Primary Care Provider + Cris Cabrera RN Unavailable [phone] Encounter Details Date Type Department Care Team (Late Contact Info) Description 07/20/2023 Orders Only [facility] [address] [place] [phone] Provider, MD Estelle Social History Tobacco Use Types Packs/Day Years Used Date Smoking Tobacco: Every Day Cigarettes Passive Smoke Exposure: Current Smokeless Tobacco: Never Alcohol Use Standard Drinks/Week Comments Yes 0 (1 standard drink = 0.6 oz pur e alcohol) oca Depression Answer Date Recorded Patient Health Questionnaire-9 Score 10 06/08/2023 Depression Answer Date Recorded Patient Health Questionnaire-2 [...] Upcoming Encounters Date Type Department Care Team ([facility] Contact Info) Description 12/21/2024 9:00 AM EST Office Visit [facility] [address] [place] [phone] Yolanda Aaron MD [address] [place] [address] documented as of this encounter Procedures Procedure Name Priority Date/Time Associated Diagnosis Comments HM PAP/HPV Routine 02/12/2022 documented in this encounter Results * Hm Pap Smear (02/12/2022) us Historical Provider HEALTH MAINTENANCE Final Result documented in this encounter Visit Diagnoses Not on filedocumented in this encounter Additional Health Concerns Assessment Noted Time PHQ-9 Depression Total Score: 10 06/08/ 023 3:33 PM EDT documented as of this encounter Care Teams Child Care Lead Teacher Relationship Specialty Start Date End Date Yolanda Aaron MD [address] [place] [address] PCP - General Family Medicine 08/16/18 Cris Cabrera RN [address] [place] [address] Laborer Drying DepartmentMetal Neutralizer 04/25/24 08/03/24 documented as of this encounter
--- OUTSIDE RECORDS SUMMARY | 2024-11-24 10:54 | XMS_ITS | Encounter Summary ---
Author Organization [employer] Address [address] [place] [address] Care Team Providers Care Silo Painter Name Role Phone Yolanda Aaron MD Primary Care Provider + Cris Cabrera RN Unavailable [phone] Encounter Details Date Type Department Care Team (Late Contact Info) Description 04/20/2023 Abstract [facility] [address] [place] [phone] Yolanda Aaron MD [address] [place] [address] [phone] Social History Tobacco Use Types Packs/Day Years [...] Upcoming Encounters Date Type Department Care Team ([facility] Contact Info) Description 12/21/2024 9:00 AM EST Office Visit [facility] [address] [place] [address] [phone] Yolanda Aaron MD [address] [place] [address] documented as of this encounter Visit Diagnoses Not on filedocumented in this encounter Additional Health Concerns Assessment Noted Time PHQ-9 Depression Total Score: 13 023 2:39 PM EDT documented as of this encounter Care Teams Silo Painter Relationship Specialty Start Date End Date Yolanda Aaron MD [address] [place] [address] PCP - General Family Medicine 08/16/18 Cris Cabrera RN [address] [place] [phone] Wood Strip Block Floor InstallerDerrick Helper 04/25/24 08/03/24 documented as of this encounter
== END ==
LOC: HO.SL 08:01
PROVIDERS: PCP Internal Medicine; Visit Provider Nurse Practitioner Family
DX: G47.33 Obstructive sleep apnea (adult) (pediatric) (principal); R06.83 Snoring; G47.19 Other hypersomnia
CPT/HCPCS: 95806

== ENCOUNTER → 2024-11-29 08:20 | Outpatient (BNV) | payer MEDICAID, SELFPAY | PROVIDERS: PCP Internal Medicine; Visit Provider Psychiatry & Neurology Neurology | DX: G47.33 Obstructive sleep apnea (adult) (pediatric) (principal) | CPT/HCPCS: 95806 ==

== ENCOUNTER 2024-12-08 10:12 | Outpatient (AMB) | payer MEDICAID, SELFPAY ==
[2024-12-08 10:17] VITALS: BP 110/68; BMI 30.9
--- NOTE | 2024-12-08 10:17 | A.OFFVIS_ITS ---
Vital Signs 12/08/24 10:17 Height 5 ft 4 in Weight 180 lb BMI 30.9 BP 110/68 Intake Visit Reasons: Pelvic pain Spool Worker Required: No Spool Worker Services: Spool Worker Present Information Interpreted: clinical only English Language Arts Teacher: English Language Arts Teacher Present Allergies Penicillins Adverse Reaction (Verified 12/08/24 10:19) vaginal itching Medication List - Last Reconciled 12/08/24 by Lois Rubio CNM meclizine 50 mg PO BID PRN 30 days sumatriptan succinate 50 - 100 mg orally at onset of headache, may repeat in 2 hrs PRN; max 2 tabs per day or 4 tabs/week (may take with Tylenol) 30 days Is last menstrual period known: Yes Last menstrual period: 11/27/24 HPI HPI Pelvic pain: Details: Patient is here because she was having some pelvic pain that she always has but it was bothering her a little bit more this month. Her last periods started November 27 today's December 08. She says also it has been hurting sometimes when she has sex. She also would like full screening for STDs she does not know when her next Pap smear is but it was it per the chart that she have her next 1 this coming January.. She is worried about whether not this something wrong because family history of cancer and she was wondering if she could have another ultrasound to check because she is anxious. She has a tubal ligation. She is continent for herself the she is only with the 1 partner but he lives in [place] so that is why she just wants double check. She also sometimes has discharge that sometimes is little bit fishy it is often worse after sex. She has been told about the connection between normal vaginal milagro and post intercourse PH changes. She knows about boric acid and what she bought it [facility] left of powdery residue in her vagina that she did not like but at [facility] they had given her a gel that said PH gel and she liked that. [facility] Medical History Bacterial vaginosis Vaginal itching Fibroadenoma Encounter for screening examination for sexually transmitted disease Obesity Vaginal discharge Vaginal odor Fracture of orbital floor, blow-out, right, closed Problematic vaginal discharge Mass of right breast Microcalcification of left breast on mammography History of abnormal cervical Pap smear Well woman exam with routine gynecological exam Pelvic pain Breast lump Abnormal Pap smear of cervix Pulmonary embolism Bilateral pulmonary embolism PE (pulmonary thromboembolism) DVT (deep venous thrombosis) Surgical History Hx of tubal ligation Hx of foot surgery Family History Maternal Aunt Breast cancer, Onset Age: 29 Colon cancer Brother Diabetes Sister Diabetes Maternal Aunt Metastasis from esophageal cancer Father Colon cancer Family/Other Colon cancer Social History Household Members: Children Housing: Apartment Are you a primary career development engineer to a significant other at home: No Do you presently have visiting nurse or other home services: No Alcohol intake: never Patient Tobacco Use Status: Current everyday Tobacco user Tobacco use type: Cigarette service: No Current occupational status: unemployed Gender identity: Female Female Reproductive History Menstrual Age of Menarche: 13 Duration of menses: 3-5 days Date of last menstrual period: 11/27/24 control method: permanent sterilization Total pregnancies: 5 Full term: 5 Date of last pap smear: 02/14/24 (neg.) Physical Exam Vital Signs: Last Vital Signs BP 110/68 12/08/24 10:17 BMI result Body Mass Index 30.9 Other: Completely normal external exam vagina is very clear and pink with no discharge whatsoever cervix multiparous pink smooth anterior uterus small retroverted mobile nontender adnexa is nontender nonenlarged very good tone with Kegel External Female Exam: normal external appearance Speculum Exam - Vagina: normal appearance of the vagina and normal vaginal discharge Speculum Exam - Cervix: normal appearance of the cervix Bimanual exam- vagina & uterus: normal bimanual exam, uterine size normal, consistency normal, uterine mobility normal, uterine shape normal and non-tender Bimanual Exam- Adnexa, other: normal adnexae, no masses and No adnexal tenderness Results Reviewed Results Reviewed: Patient: Nisha Brown MR#: [id number] : 1985 Acct:[id number] Age/Sex: 38 / F ADM Date: 02/26/24 Loc: HO.US Attending Dr: Digna Torres MD Ordering Physician: Harmony Sheldon CNM Date of Service: 02/26/24 Procedure(s): US pelvic and transvaginal Accession Number(s): [id number] cc: Yolanda Aaron MD; Harmony Sheldon CNM~ EXAMINATION: US PELVIS CLINICAL INFORMATION: Pelvic and perineal pain LMP 02/09/2024 COMPARISON: CT scan abdomen and pelvis 12/05/2022 TECHNIQUE: Ultrasound of the pelvis is performed using both transabdominal and transvaginal transducers along with Doppler. Transvaginal imaging is performed due to inadequate visualization transabdominally. FINDINGS: Uterus: The uterus is retroverted and measures 8.8 x 5.8 x 6.0 cm. No focal fibroid. The endometrial thickness is 1.3 cm. Adnexa: Both ovaries are visualized. There is normal color flow to the adnexa. There is no ovarian torsion. There is no pelvic ascites or fluid collection. Right ovary measures 2.6 x 1.3 x 2.1 cm. Volume 3.7 mL. 0.8 x 0.8 x 1.0 cm simple paraovarian cyst is seen adjacent to the right ovary. This is a benign finding requires no further follow-up. Left ovary measures 2.3 x 1.3 x 1.4 cm. Volume 2.2 mL US/US pelvic and transvaginal IMPRESSION: 1. Retroverted uterus without a focal fibroid. 2. Normal ovaries. 3. 1.0 cm simple right paraovarian cyst. This is a benign finding and requires no further follow-up. Dictated By: Edith Moreno MD Signed By: <Electronically signed by Edith Moreno MD in OV> 03/03/24 0940 DD/ 1124 TD/TT: Promotions Coordinator: Assessment & Plan Assessment & Plan (1) Abnormal Pap smear of cervix: Comment: 2018-ASCUS/HPV+, 2019-unsatisfactory/neg HPV, 2020- N/N 2021-N/N, repeat 3yrs due 01/2025... Code(s): R87.619 - Unspecified abnormal cytological findings in specimens from cervix uteri Category: Medical (2) Encounter for screening examination for sexually transmitted disease: Code(s): Z11.3 - Encounter for screening for infections with a predominantly sexual mode of transmission Category: Medical (3) Dyspareunia in female: Code(s): N94.10 - Unspecified dyspareunia Category: Medical Plan Patient is here because she was having some pelvic pain that she always has but it was bothering her a little bit more this month. Her last periods started November 27 today's December 08. She says also it has been hurting sometimes when she has sex. She also would like full screening for STDs she does not know when her next Pap smear is but it was it per the chart that she have her next 1 this coming January.. She is worried about whether not this something wrong because family history of cancer and she was wondering if she could have another ultrasound to check because she is anxious. She has a tubal ligation. She is continent for herself the she is only with the 1 partner but he lives in [place] so that is why she just wants double check. She also sometimes has discharge that sometimes is little bit fishy it is often worse after sex. She has been told about the connection between normal vaginal milagro and post intercourse PH changes. She knows about boric acid and what she bought it [facility] left of powdery residue in her vagina that she did not like but at [facility] they had given her a gel that said PH gel and she liked that. I reviewed that she is in fact due for a Pap smear this coming January and so she needs to schedule her annual exam so we can do the Pap then to follow-up on history of abnormal Paps Testing done today for gonorrhea chlamydia trichomoniasis bacterial vaginosis and yeast though her vagina was completely pink and clear and when I questioned her directly, it turns out that she did douche, though she said with plain water last night. I discussed the [facility] and [facility] have [facility] to other sample medications that we do not have access to. Discussed why the boric acid capsule would leave a powdery residue when is incompletely dissolve and that is just the nature of it.. Also reviewed her previous ultrasound which was normal and reviewed as normal when she had the visit with Harmony.. Additionally reviewed that her uterus is palpating completely normal and is retroverted and that would account for some dyspareunia when she does have sex and it was a solution is to simply change positions. In addition I researched with her different PH gel options but did not find an appropriate substitution/with the appropriate monographs information. I shared with her that her vagina looks very pink and clear today and there is no suspicion whatsoever of a bacterial vaginosis infection though it may show up in her testing because it is very sensitive. She desired to have a prescription for the clindamycin cream that she had been giving before that she said worked better for her I told her I would send her prescription with the promised that she would not use it unless she had very very clear symptomology of bacterial vaginosis which she does not possess this time that this way she will have it available to her when she has very obvious symptoms, I begged her to please not overuse it. Again condoms are the best prevention. precision assembler bench annual and pap libertad labs Orders: Orders Hepatitis B Surface Antigen Today N94.10 - Unspecified dyspareunia, R87.619 - Unspecified abnormal cytological findings in specimens from cervix uteri, Z11.3 - Encounter for screening for infections with a predominantly sexual mode of transmission HIV Ab/Ag Today N94.10 - Unspecified dyspareunia, R87.619 - Unspecified abnormal cytological findings in specimens from cervix uteri, Z11.3 - Encounter for screening for infections with a predominantly sexual mode of transmission Urine Culture Today R10.2 - Pelvic and perineal pain CT NG by PCR Today N89.8 - Other specified noninflammatory disorders of vagina Bacterial Vaginosis Panel Today N89.8 - Other specified noninflammatory disorders of vagina Hepatitis C Antibody Today N94.10 - Unspecified dyspareunia, R87.619 - Unspecified abnormal cytological findings in specimens from cervix uteri, Z11.3 - Encounter for screening for infections with a predominantly sexual mode of transmission Syphilis Screen Today N94.10 - Unspecified dyspareunia, R87.619 - Unspecified abnormal cytological findings in specimens from cervix uteri, Z11.3 - Encounter for screening for infections with a predominantly sexual mode of transmission Medications: Changed From clindamycin phosphate 2% 1 appful vaginal DAILY 40 grams 0RF To clindamycin phosphate 2% use only when you have certain evidence of bacterial vaginosis. 1 appful vaginal DAILY 40 grams 1RF Coding Level of Care Code Est Pt Level 3 (61788) Diagnoses Abnormal Pap smear of cervix R87.619 Encounter for screening examination for sexually transmitted disease Z11.3 Dyspareunia in female N94.10 Time Spent (min) 45 Comment 90% spent reviewing her past history labs ultrasounds symptoms and explaining rationale fo
--- OUTSIDE RECORDS SUMMARY | 2024-12-08 10:57 | XMS_ITS | Encounter Summary ---
Author Organization [employer] Address [address] [place] [address] Care Team Providers Care Sorter/Assay Tech Name Role Phone Yolanda Aaron MD Primary Care Provider + Cris Cabrera RN Unavailable [phone] Encounter Details Date Type Department Care Team (Late st Contact Info) Description 12/24/2022 Orders Only [facility] [address] [place], [place] [phone] Yolanda Aaron MD [address] [place], [place] [phone] Social History Tobacco Use Types Packs/Day Years [...] Description 12/21/2024 9:00 AM EST Office Visit [facility] [address] [place] [phone] Yolanda Aaron MD [address] [place] [address] documented as of this encounter Visit Diagnoses Not on filedocumented in this encounter Additional Health Concerns Assessment Noted Time PHQ-9 Depression Total Score: 11 023 11:41 AM EST documented as of this encounter Care Teams Sorter/Assay Tech Relationship Specialty Start Date End Date Yolanda Aaron MD [address] [place] [address] PCP - General Family Medicine 08/16/18 Cris Cabrera RN [address] [place] [phone] Prototype SewerCareer Development Director 04/25/24 08/03/24 documented as of this encounter
--- OUTSIDE RECORDS SUMMARY | 2024-12-08 10:57 | XMS_ITS | Encounter Summary ---
Author Organization [employer] Address [address] [place] [address] Care Team Providers Care Lodging Facilities Attendant Name Role Phone Yolanda Aaron MD Primary Care Provider + Cris Cabrera RN Unavailable Encounter Details Date Type Department Care Team (Late st Contact Info) Description 08/05/2023 Abstract [facility] [address] [place], [place] [phone] Yolanda Aaron MD [address] [place] [address] Social History Tobacco Use Types Packs/Day Years [...] Description 12/21/2024 9:00 AM EST Office Visit [facility] [address] [place] [phone] Yolanda Aaron MD [address] [place] [phone] documented as of this encounter Visit Diagnoses Not on filedocumented in this encounter Additional Health Concerns Assessment Noted Time PHQ-9 Depression Total Score: 023 3:33 PM EDT documented as of this encounter Care Teams Lodging Facilities Attendant Relationship Specialty Start Date End Date Yolanda Aaron MD [address] [place] [address] PCP - General Family Medicine 08/16/18 Cris Cabrera RN [address] [place] [phone] Entrepreneurship Program DirectorSenior Technical Specialist 04/25/24 08/03/24 documented as of this encounter
--- OUTSIDE RECORDS SUMMARY | 2024-12-08 10:57 | XMS_ITS | Encounter Summary ---
Author Organization [employer] Address [address] [facility] [address] [facility] [address] [address] [place] [address] Care Team Providers Care Gas Tender Name Role Phone Yolanda Aaron MD Primary Care Provider + Cris Cabrera RN Unavailable [phone] Encounter Details Date Type Department Care Team (Late Contact Info) Description 07/20/2023 Orders Only [facility] [address] [place] [phone] Provider, MD Estelle Social History Tobacco Use [...] Upcoming Encounters Date Type Department Care Team ([facility] Contact Info) Description 12/21/2024 9:00 AM EST Office Visit [facility] [address] [place] [phone] Yolanda Aaron MD [address] [place] [address] documented as of this encounter Procedures Procedure [...] documented as of this encounter Care Teams Gas Tender Relationship Specialty Start Date End Date Yolanda Aaron MD [address] [place] [address] PCP - General Family Medicine 08/16/18 Cris Cabrera RN [address] [place] [address] Carton InspectorMedia Center Specialist 04/25/24 08/03/24 documented as of this encounter
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
--- OUTSIDE RECORDS SUMMARY | 2024-12-08 10:57 | XMS_ITS | Encounter Summary ---
Author Organization [employer] Address [address] [place] [address] Care Team Providers Care Joint Special Operations Name Role Phone Yolanda Aaron MD Primary Care Provider + Reason for Visit * Reason Comments Med Refill Encounter Details Date Type Department Care Team ([facility] st Contact Info) Description 11/30/2024 Refill [facility] [address] [place], [place] [phone] Yolanda Aaron MD [address] [place], [place] [phone] Social History Tobacco Use Types Packs/Day Years [...] Description 12/21/2024 9:00 AM EST Office Visit [facility] [address] [place] [address] Yolanda Aaron MD [address] [place] [address] documented as of this encounter Visit Diagnoses Not on filedocumented in this encounter Additional Health Concerns Assessment Noted Time PHQ-9 Depression Total Score: 9 01/05/20 24 8:58 AM EDT documented as of this encounter Care Teams Joint Special Operations Relationship Specialty Start Date End Date Yolanda Aaron MD [address] [place] [address] [phone] PCP - General Family Medicine 08/16/18 documented as of this encounter
--- OUTSIDE RECORDS SUMMARY | 2024-12-08 10:57 | XMS_ITS | Encounter Summary ---
Author Organization [employer] Address [address] [place] [address] Care Team Providers Care Packing Line Operator Name Role Phone Yolanda Aaron MD Primary Care Provider + Cris Cabrera RN Unavailable [phone] Encounter Details Date Type Department Care Team (Late Contact Info) Description 04/20/2023 Abstract [facility] [address] [place] [phone] Yolanda Aaron MD [address] [place] [address] [phone] Social History Tobacco Use Types Packs/Day Years [...] Upcoming Encounters Date Type Department Care Team ([facility] Contact Info) Description 12/21/2024 9:00 AM EST Office Visit [facility] [address] [place] [phone] Yolanda Aaron MD [address] [place] [address] documented as of this encounter Visit Diagnoses Not on filedocumented in this encounter Additional Health Concerns Assessment Noted Time PHQ-9 Depression Total Score: 13 023 2:39 PM EDT documented as of this encounter Care Teams Packing Line Operator Relationship Specialty Start Date End Date Yolanda Aaron MD [address] [place] [phone] PCP - General Family Medicine 08/16/18 Cris Caberra RN [address] [place] [phone] Lead Ramp Service [facility] Teacher 04/25/24 08/03/24 documented as of this encounter
--- OUTSIDE RECORDS SUMMARY | 2024-12-08 10:57 | XMS_ITS | Encounter Summary ---
Author Organization [employer] Address [address] [place] [address] Care Team Providers Care Radiation Protection Specialist Name Role Phone Yolanda Aaron MD Primary Care Provider + Cris Cabrera RN Unavailable [phone] Encounter Details Date Type Department Care Team (Late st Contact Info) Description 12/01/2022 Abstract [facility] [address] [place], [place] [phone] Yolanda Aaron MD [address] [place], [place] [phone] Social History Tobacco Use Types Packs/Day Years [...] Office Visit [facility] [address] [place] [address] Yolanda Aaron MD [address] [place] [phone] documented as of this encounter Visit Diagnoses Not on filedocumented in this encounter Additional Health Concerns Assessment Noted Time PHQ-9 Depression Total Score: 11 023 11:41 AM EST documented as of this encounter Care Teams Radiation Protection Specialist Relationship Specialty Start Date End Date Yolanda Aaron MD [address] [place] [phone] PCP - General Family Medicine 08/16/18 Cris Cabrera RN [address] [place] [phone] Dependency DirectorCase Repairer 04/25/24 08/03/24 documented as of this encounter
== END 2024-12-08 11:10 | disposition home or self-care (01) ==
PROVIDERS: PCP Internal Medicine; Visit Provider Advanced Practice Midwife
DX: R87.619 Unspecified abnormal cytological findings in specimens from cervix uteri (principal); Z11.3 Encounter for screening for infections with a predominantly sexual mode of transmission; N94.10 Unspecified dyspareunia
CPT/HCPCS: 99213

== ENCOUNTER 2024-12-08 10:12 | Outpatient (REF) | payer MEDICAID, SELFPAY ==
--- OUTSIDE RECORDS SUMMARY | 2024-12-08 11:19 | XMS_ITS | Clinical Summary ---
Author Organization [employer] Address [address] [place] [address] Care Team Providers Care Wheel Alignment Mechanic Name Role Phone Yolanda Aaron MD Primary Care Provider + Allergies No known active allergies Medications Calcium Carb-Cholecalc iferol 500-10 MG-MCG tablet Take 1 tablet by mouth in the morning and at bedtime. 08/07/20 22 Active ergocalciferol (Vitamin D2) 1.25 MG (14965 UT) capsule TAKE 1 CAPSULE BY MOUTH [...] referred to AUD program. Fu closely with production recovery operator Hep B up to date Varicose veins [...] be referred [facility] for [facility] and Recovery program. [...] that she can drop of att he medical front desk specialist and request a referral at [facility] Counseled [...] 500-700s, she has been reluctant to continue nursing home anticoagulation. F yearly with hematology Re [...] is able to initiate care with her [facility] agency prescriber, she will go ahead and do that instead. She should call [facility] and/or consult her PCP with any [...] close fu with mental health provider and production recovery operator Counseled to cut down etoh use Pt [...] Plan (12/03/2022 11:27 AM EST): FU by MAIL AGENT. Pat for PAP and pelvic US Coming [...] Type Department Care Team Description 11/30/2024 Refill [facility] [address] [place] [address] Yolanda Aaron MD 10/21/2024 Orders Only [facility] [address] [place] [address] Yolanda Aaron MD 10/21/2024 Telephone [facility] [address] [place] [address] Yolanda Aaron MD Results 10/20/2024 11:45 AM EST Office Visit [facility] [address] [place] [address] Yolanda Aaron MD Viral upper respiratory tract infection (Primary Dx); Acute vaginitis; Subacute vaginitis; Vitamin D deficiency; Major depressive disorder with psychotic features (CMS/HCC); Body aches; Erosive osteoarthritis of hands, bilateral 10/20/2024 Orders Only [facility] [address] [place] [address] Yolanda Aaron MD 10/20/2024 Travel 10/10/2024 Patient Outreach [facility] [address] [place] [address] Yolanda Aaron MD Pre-visit Planning ([facility] screening completed on 04/04/2024) from Last 3 [...] 9:00 AM EST Office Visit [facility] [address] [place] [address] Yolanda Aaron MD [address] [place] [address] Health Maintenance Due Date Last Done Comments [...] DETECTION BY PCR NOT DETECTED Not Detect [facility] BACTERIAL VAGINOSIS DETECTION BY PCR POSITIVE(A) Negative [facility] Comment:The BV organism targ ets of [...] GROUP DETECTION BY PCR DETECTED(A) Not Detect [facility] Serenity glab krusei PCR NOT DETECTED Not Detect [facility] 10/20/2024 12:3 3 PM EST 10/20/2024 6:23 PM EST us Yolanda Aaron MD LAB MICROBIOLOGY - GENER AL ORDERABLES Final Result [facility] [address] [place] [phone] * Chlamydia/N. Gonorrhoeae RNA, TMA, Urogenitial (10/20/2024 12:33 PM EST) Pathologist [facility] [place] CT PCR NOT DETECTED Not Detect. [facility] Comment:A not detected test result does [...] psychologicalconsequences. NG PCR NOT DETECTED Not Detect. [facility] Comment:A not detected test result does [...] PM EST 10/20/2024 6:23 PM EST Narrative [facility] - 10/21/2024 4:45 AM EST Vaginal Yolanda Aaron MD LAB MICROBIOLOGY - GENER AL ORDERABLES Final Result [facility] [address] [place] [address] [phone] * POCT Rapid Covid-19 BinaxNOW (10/20/2024 12:04 PM EST) Pathologist [facility] Rapid COVID Ag Negative QC Media Lot # [id number] Lot# Expiration Date [id number] Swab 10/20/2024 12:0 4 PM EST Yolanda Aaron MD POINT OF CARE TEST ENTER /EDIT ORDERABLES Final Result * POCT Rapid Influenza B OSOM (10/20/2024 12:04 PM EST) [facility] Rapid Influenza B Ag Negative Negative, Indeterminate QC Media Lot # [id number] Lot# Expiration Date [id number] Swab 10/20/2024 12:0 4 PM EST Yolanda Aaron MD POINT OF CARE TEST ENTER /EDIT ORDERABLES Final Result * POCT Rapid Influenza A OSOM (10/20/2024 12:04 PM EST) [facility] Rapid Influenza A Ag Negative Negative, Indeterminate QC Media Lot # [id number] Lot# Expiration Date [id number] Swab Nasopharyngeal structure / Unknown 10/20/2024 12:04 PM EST Yolanda Aaron MD POINT OF CARE TEST ENTER /EDIT ORDERABLES Final Result * Hepatitis C Ab (09/05/2024 12:36 PM EST) [facility] Hepatitis C Antibody Nonreactive Nonreactive [facility] Comment:Antibodies to HCV no t detected; does not exclude early acuteHCV infection. 09/05/2024 12:3 6 PM EST 09/05/2024 12:36 PM EST Generic External Data Provider LAB BLOOD ORDERAB LES Final Result [facility] [address] [place] [phone] * HIV-1/2 Antigen and Antibodies, Fourth Generation, with Reflexes (09/05/2024 12:36 PM EST) [facility] HIV AB/AG Nonreactive Nonreactive [facility] Comment:HIV-1 p24 Ag and/or HIV-1/HIV-2 Ab not detected.A test result that is nonreactive does not exclude thepossibility of exposure to or infection with HIV-1 and/orHIV-2. Nonreactive results in this assay for individualswith prior exposure to HIV-1 and/or HIV-2 may be due toantigen and antibody levels that are below the limit ofdetection of this assay.[employer] HIV Ag/Ab Combo assay result andsupplemental assay results should be interpreted inconjunction with the patient's clinical presentation,history and other laboratory results. If the results areinconsistent with clinical evidence, additional testing issuggested to confirm the result. 09/05/2024 12:3 6 PM EST 09/05/2024 12:36 PM EST us Generic External Data Provider LAB BLOOD ORDERAB LES Final Result Performing Organization Address City/State/[facility] Co de Phone Number [facility] [address] [place] [address] [phone] * BI Mammogram Screening Tomosynthesis Bilateral (12/31/2023 2:10 PM EST) Anatomical Region Laterality Modality Breast Bilateral Mammography 12/31/2023 2:10 PM EST Narrative 01/11/2024 5:44 AM EDT ? [facility] ? [address] ?[place] [address] ? Mammography Report ? Signed ? Patient: Nisha Brown ?MR# ?? : [id number] ? : 1985 ?Acct:[id number] ? Age/Sex: 38 / F ?ADM Date: 12/31/23 ? Loc: HO.MAMMO ? Attending Dr: Yolanda Aaron MD ? Ordering Physician: Yolanda Aaron MD ?Results: 2Be ?? nign Findings ? Date of Service: 12/31/23 ?Follow Up: 1 Year From Orig ?? inal Mammogram ? Procedure(s): MM tomosynthesis screening BI ?? Accession Number(s): [id number] ? cc: Yolanda Aaron MD ? EXAMINATION: [...] 0540 ? DD/ 1410 ? TD/TT: ? Senior Analyst Market Intelligence: ? Procedure Note Ade, Image - 01/11/[address] [facility] [address] [place] [address] Mammography Report Signed Patient: iKki Brown# : [id number] : 1985Acct:[id number] Age/Sex: 38 / FADM Date: 12/31/23 Loc: HO.MAMMO Attending Dr: Yolanda Aaron MD Ordering Physician: Yolanda Aaron MDResults: 2Be nign Findings Date of Service: 12/31/23Follow Up: 1 Year From Orig ina Mammogram Procedure(s): MM tomosynthesis screening BI Accession Number(s): [id number] cc: Yolanda Aaron MD EXAMINATION: MM SCREENING [...] in OV> 01/11/24 0540 DD/ 1410 TD/TT: Senior Analyst Market Intelligence: Yolanda Aaron MD IMG BI PROCEDURES Final Result * HPV E6/E7 RFLX XENIA 16 18/45 (02/12/2022 3:42 PM EDT) HPV mRNA E6/E7 rflx Not Detected Not Detected [facility] Comment: Methodology: Skating Rink Ice Maker-Mediated Amplification This assay detects E6/E7 viral messenger RNA (mRNA) from 14 high-risk HPV types (16,18,31,33,35,39,45,51,52,56,58,59,66,68). The analytical performance characteristics of this assay have been determined by [employer]. The modifications have not been cleared or approved by the FDA. This assay has been validated pursuant to the CLIA regulations and is used for clinical purposes. For additional information, please refer to http://education.Locqus/faq/KUF871w1 (This link if provided for information/ educational purposes only.) THIS TEST WAS PERFORMED AT: [facility] [address] [place] [address] [address] [place], [place] ??[phone] TREY MCELROY MD 02/12/2022 3:42 PM EDT [facility] HISTORICAL/NON ORDERABLE LABS Fi nal Result [facility] [address] * Hm Pap Smear (02/12/2022) Historical Provider HEALTH MAINTENANCE Final Result from Last 3 Months or Most Recently Relevant to Health Maintenance Insurance [facility] C3 Care Teams Wheel Alignment Mechanic Relationship Specialty Start Date End Date Yolanda Aaron MD [address] [place] [phone] PCP - General Family Medicine 08/16/18
--- OUTSIDE RECORDS SUMMARY | 2024-12-08 11:19 | XMS_ITS | Encounter Summary ---
Author Organization [employer] Address [address] 7t [place] [address] Care Team Providers Care Paleontology Teacher Name Role Phone Yolanda Aaron MD Primary Care Provider + Cris Cabrera RN Unavailable [phone] Encounter Details Date Type Department Care Team (Late Contact Info) Description 04/20/[address] [facility] [address] [place] [phone] Yolanda Aaron MD [address] [place] [address] [phone] Social History Tobacco Use Types Packs/Day Years [...] Upcoming Encounters Date Type Department Care Team ([facility] Contact Info) Description 12/21/2024 9:00 AM EST Office Visit [facility] [address] [place] [address] Yolanda Aaron MD [address] [place] [address] documented as of this encounter Visit Diagnoses Not on filedocumented in this encounter Additional Health Concerns Assessment Noted Time PHQ-9 Depression Total Score: 13 023 2:39 PM EDT documented as of this encounter Care Teams Paleontology Teacher Relationship Specialty Start Date End Date Yolanda Aaron MD [address] [place] [address] PCP - General Family Medicine 08/16/18 Cris Cabrera RN [address] [place] [address] Crown PouncerEmt Intermediate 04/25/24 08/03/24 documented as of this encounter
--- OUTSIDE RECORDS SUMMARY | 2024-12-08 11:19 | XMS_ITS | Encounter Summary ---
Author Organization [employer] Address [address] [place] [address] Care Team Providers Care Poultry Farmer Name Role Phone Yolanda Aaron MD Primary Care Provider + Cris Cabrera RN Unavailable [phone] Encounter Details Date Type Department Care Team (Late st Contact Info) Description 08/05/2023 Abstract [facility] [address] [place], [place] [phone] Yolanda Aaron MD 230 [place] [address] Social History Tobacco Use Types Packs/Day Years [...] Description 12/21/2024 9:00 AM EST Office Visit [facility] [address] [place] [address] Yolanda Aaron MD [address] [place] [address] documented as of this encounter Visit Diagnoses Not on filedocumented in this encounter Additional Health Concerns Assessment Noted Time PHQ-9 Depression Total Score: 023 3:33 PM EDT documented as of this encounter Care Teams Poultry Farmer Relationship Specialty Start Date End Date Yolanda Aaron MD [address] [place] [address] PCP - General Family Medicine 08/16/18 Cris Cabrera RN [address] [place] [address] Fairing WorkerEngineer 04/25/24 08/03/24 documented as of this encounter
--- OUTSIDE RECORDS SUMMARY | 2024-12-08 11:19 | XMS_ITS | Encounter Summary ---
Author Organization [employer] Address [address] [place] [address] Care Team Providers Care Rock Splitter Name Role Phone Yolanda Aaron MD Primary Care Provider + Reason for Visit * Reason Comments Med Refill Encounter Details Date Type Department Care Team ([facility] st Contact Info) Description 11/30/2024 Refill [facility] [address] [place], [place] [phone] Yolanda Aaron MD [address] [place], [place] [phone] Social History Tobacco Use Types Packs/Day Years [...] EST Office Visit [facility] [address] [place] [address] Yolanda Aaron MD [address] [place] [address] documented as of this encounter Visit Diagnoses Not on filedocumented in this encounter Additional Health Concerns Assessment Noted Time PHQ-9 Depression Total Score: 9 01/05/20 24 8:58 AM EDT documented as of this encounter Care Teams Rock Splitter Relationship Specialty Start Date End Date Yolanda Aaron MD [address] [place] [address] [phone] PCP - General Family Medicine 08/16/18 documented as of this encounter
--- OUTSIDE RECORDS SUMMARY | 2024-12-08 11:19 | XMS_ITS | Encounter Summary ---
Author Organization [employer] Address [address] [place] [address] Care Team Providers Care Report Checker Name Role Phone Yolanda Aaron MD Primary Care Provider + Cris Cabrera RN Unavailable [phone] Encounter Details Date Type Department Care Team (Late st Contact Info) Description 12/01/2022 Abstract [facility] [address] [place], [place] [phone] Yolanda Aaron MD [address] [place], [place] [phone] Social History Tobacco Use Types Packs/Day Years [...] 12/21/2024 9:00 AM EST Office Visit [facility] [address] [place] [address] Yolanda Aaron MD [address] [place] [address] documented as of this encounter Visit Diagnoses Not on filedocumented in this encounter Additional Health Concerns Assessment Noted Time PHQ-9 Depression Total Score: 11 023 11:41 AM EST documented as of this encounter Care Teams Report Checker Relationship Specialty Start Date End Date Yolanda Aaron MD [address] [place] [address] PCP - General Family Medicine 08/16/18 Cris Cabrera RN [address] [place] [phone] Oxygen Equipment TechnicianCar Refinisher 04/25/24 08/03/24 documented as of this encounter
--- OUTSIDE RECORDS SUMMARY | 2024-12-08 11:19 | XMS_ITS | Encounter Summary ---
Author Organization [employer] Address [address] 7[address] [place] [address] Care Team Providers Care Electrical Designer Name Role Phone Yolanda Aaron MD Primary Care Provider + Cris Cabrera RN Unavailable [phone] Encounter Details Date Type Department Care Team (Late st Contact Info) Description 12/24/2022 Orders Only [facility] [address] [place], [place] [phone] Yolanda Aaron MD [address] [place], [place] [phone] Social History Tobacco Use Types Packs/Day Years [...] Description 12/21/2024 9:00 AM EST Office Visit [facility] [address] [place] [address] Yolanda Aaron MD [address] [place] [address] documented as of this encounter Visit Diagnoses Not on filedocumented in this encounter Additional Health Concerns Assessment Noted Time PHQ-9 Depression Total Score: 11 023 11:41 AM EST documented as of this encounter Care Teams Electrical Designer Relationship Specialty Start Date End Date Yolanda Aaron MD [address] [place] [address] PCP - General Family Medicine 08/16/18 Cris Cabrera RN [address] [place] [address] Manager PackagePublic Speaking Coach 04/25/24 08/03/24 documented as of this encounter
--- OUTSIDE RECORDS SUMMARY | 2024-12-08 11:19 | XMS_ITS | Encounter Summary ---
Author Organization [employer] Address [address] 7[address] [place] [address] Care Team Providers Care Upper Tier Name Role Phone Yolanda Aaron MD Primary Care Provider + Cris Cabrera RN Unavailable [phone] Encounter Details Date Type Department Care Team (Late Contact Info) Description 07/20/2023 Orders Only [facility] [address] [place] [address] Provider, MD Estelle Social History Tobacco Use [...] Upcoming Encounters Date Type Department Care Team ([facility] Contact Info) Description 12/21/2024 9:00 AM EST Office Visit [facility] [address] [place] [address] Yolanda Aaron MD [address] [place] [address] documented as of this encounter Procedures Procedure [...] documented as of this encounter Care Teams Upper Tier Relationship Specialty Start Date End Date Yolanda Aaron MD [address] [place] [address] PCP - General Family Medicine 08/16/18 Cris Cabrera RN [address] [place] [address] Track Inspecting SupervisorMail Caller 04/25/24 08/03/24 documented as of this encounter
== END 2024-12-08 10:13 | disposition home or self-care (01) ==
LOC: HO.LNP 10:12
PROVIDERS: PCP Internal Medicine; Visit Provider Advanced Practice Midwife
DX: R87.619 Unspecified abnormal cytological findings in specimens from cervix uteri (principal); R10.2 Pelvic and perineal pain; Z11.3 Encounter for screening for infections with a predominantly sexual mode of transmission; N94.10 Unspecified dyspareunia
CPT/HCPCS: 87086; 99212

== ENCOUNTER 2024-12-08 10:49 | Outpatient (REF) | payer MEDICAID, SELFPAY | END 2024-12-08 10:50 | disposition home or self-care (01) | LOC: HO.LAB 10:49 | PROVIDERS: Visit Provider Advanced Practice Midwife | DX: Z13.89 Encounter for screening for other disorder (principal) ==

== ENCOUNTER 2024-12-08 11:14 | Outpatient (REF) | payer MEDICAID, SELFPAY ==
[2024-12-08 12:56] LABS: MANUAL DIFF FLAG NO
[2024-12-08 13:00] LABS: Basophils Absolute Auto 0.1 X10*3/uL (0.0-0.2); Basophils Percent Auto 0.7 % (0-2); Eosinophils Absolute Auto 0.1 X10*3/uL (0.0-0.4); Eosinophils Percent Auto 0.7 % (0-4); Hematocrit 40.2 % (37.0-47.0); Hemoglobin 13.2 g/dl (12.0-16.0); Imm Gran Abs Auto 0.02 X10*3/uL (0.00-0.03); Imm Gran Pct Auto 0.3 % (0.0-0.4); Lymphocytes Absolute Auto 2.2 X10*3/uL (1.2-4.9); Lymphocytes Percent Auto 29.3 % (20-40); Mean Corpuscular HGB Conc 32.8 g/dl (31.0-35.0); Mean Corpuscular Hemoglobin 30.1 pg (27.0-33.0); Mean Corpuscular Volume 91.8 fL (80.0-98.0); Mean Platelet Volume 10.2 fL (9.4-12.3); Monocytes Absolute Auto 0.6 X10*3/uL (0.1-1.2); Monocytes Percent Auto 8.2 % (2-11); Neutrophils Absolute Auto 4.5 x10*3/uL (2.0-8.3); Neutrophils Percent Auto 60.8 % (45-73); Platelet Count 274 X10*3/uL (160-400); Red Blood Count 4.38 X10*6/uL (4.20-5.50); Red Cell Distribution Width 12.3 % (11.0-16.0); White Blood Count 7.4 X10*3/uL (4.8-10.8)
[2024-12-08 13:04] LABS: Estimated Average Glucose 111 mg/dL; Hemoglobin A1C 127.6603 umol/L; Hemoglobin A1c % 5.5 % (<6.0); Total Hemoglobin (HGBA1C) 3469.2999 umol/L
[2024-12-08 13:23] LABS: Alanine Aminotransferase 101 U/L (0-31); Albumin Level 3.9 g/dL (3.5-5.0); Alkaline Phosphatase 63 U/L (39-117); Anion Gap 11 (12-20); Aspartate Amino Transferase 81 U/L (5-31); Bilirubin Total 0.5 mg/dL (0.0-1.0); Blood Urea Nitrogen 13 mg/dL (9-16); Calcium 9.2 mg/dL (8.4-10.2); Carbon Dioxide 27 mmol/L (22-29); Chloride 107 mmol/L (96-108); Estimated Glomerular Filt Rate > 60; Glucose Random 58 mg/dL (60-115); Potassium 3.8 mmol/L (3.3-5.1); Sodium 141 mmol/L (135-145); Total Protein 7.4 g/dL (6.5-8.0)
[2024-12-08 13:33] LABS: TSH reflex Free T4 1.24 uIU/mL (0.32-4.0); Vitamin D 25-OH Total 16.6 ng/mL (>30)
[2024-12-09 11:33] LABS: Bacterial Vaginosis PCR NEGATIVE (Negative); Candida Group PCR DETECTED (Not Detect); Candida glab krusei PCR NOT DETECTED (Not Detect); Trichomonas vaginalis PCR NOT DETECTED (Not Detect)
[2024-12-09 13:59] LABS: CT PCR NOT DETECTED (Not Detect.); NG PCR NOT DETECTED (Not Detect.)
== END 2024-12-08 11:15 | disposition home or self-care (01) ==
LOC: HO.HHCL 11:14
PROVIDERS: Internal Medicine; Nurse Practitioner Family; Visit Provider Advanced Practice Midwife
DX: F32.3 Major depressive disorder, single episode, severe with psychotic features (principal); R42 Dizziness and giddiness; K76.0 Fatty (change of) liver, not elsewhere classified; R79.89 Other specified abnormal findings of blood chemistry; N89.8 Other specified noninflammatory disorders of vagina; R10.2 Pelvic and perineal pain
CPT/HCPCS: 36415; 80053; 81515; 82306; 83036; 84443; 85025; 87491; 87591

== ENCOUNTER 2024-12-08 23:13 | Emergency (ER) | payer MEDICAID, SELFPAY ==
[2024-12-08 23:19] VITALS: BP 113/81; PULSE 76; RESP 18; TEMP 36.9; O2SAT 98; BMI 32.6
[2024-12-08 23:38] LABS: MANUAL DIFF FLAG NO
[2024-12-08 23:39] LABS: Basophils Percent Auto 0.5 % (0-2); Eosinophils Absolute Auto 0.1 X10*3/uL (0.0-0.4); Eosinophils Percent Auto 0.9 % (0-4); Hematocrit 40.1 % (37.0-47.0); Hemoglobin 13.6 g/dl (12.0-16.0); Imm Gran Abs Auto 0.02 X10*3/uL (0.00-0.03); Imm Gran Pct Auto 0.3 % (0.0-0.4); Lymphocytes Absolute Auto 2.4 X10*3/uL (1.2-4.9); Mean Corpuscular HGB Conc 33.9 g/dl (31.0-35.0); Mean Corpuscular Hemoglobin 30.6 pg (27.0-33.0); Mean Corpuscular Volume 90.3 fL (80.0-98.0); Mean Platelet Volume 9.8 fL (9.4-12.3); Monocytes Absolute Auto 0.7 X10*3/uL (0.1-1.2); Monocytes Percent Auto 9.2 % (2-11); Neutrophils Absolute Auto 4.6 x10*3/uL (2.0-8.3); Neutrophils Percent Auto 58.1 % (45-73); Platelet Count 268 X10*3/uL (160-400); Red Blood Count 4.44 X10*6/uL (4.20-5.50); Red Cell Distribution Width 12.2 % (11.0-16.0); White Blood Count 7.8 X10*3/uL (4.8-10.8)
[2024-12-08 23:54] LABS: Alanine Aminotransferase 106 U/L (0-31); Alkaline Phosphatase 66 U/L (39-117); Anion Gap 12 (12-20); Aspartate Amino Transferase 75 U/L (5-31); Bilirubin Total 0.4 mg/dL (0.0-1.0); Blood Urea Nitrogen 13 mg/dL (9-16); Calcium 9.5 mg/dL (8.4-10.2); Carbon Dioxide 24 mmol/L (22-29); Chloride 108 mmol/L (96-108); Creatinine Clr Calc Pharmacy 91.7; Estimated Glomerular Filt Rate > 60; Glucose Random 114 mg/dL (60-115); Sodium 140 mmol/L (135-145); Total Protein 7.6 g/dL (6.5-8.0)
== END 2024-12-09 03:38 | disposition left against medical advice (07) ==
PROVIDERS: Emergency Provider Emergency Medicine
DX: R51.9 Headache, unspecified (principal); R42 Dizziness and giddiness
CPT/HCPCS: 36415; 80053; 85025; 99281

== ENCOUNTER 2024-12-13 10:59 | Outpatient (REF) | payer MEDICAID, SELFPAY ==
--- OUTSIDE RECORDS SUMMARY | 2024-12-13 12:10 | XMS_ITS | Encounter Summary ---
Author Organization [employer] Address [address] [place] [address] Care Team Providers Care Sole Painter Name Role Phone Yolanda Aaron MD Primary Care Provider + Reason for Visit * Reason Comments Med Refill Encounter Details Date Type Department Care Team ([facility] st Contact Info) Description 11/30/2024 Refill [facility] [address] [place], [place] [phone] Yolanda Aaron MD 230 [place], [place] [phone] Social History Tobacco Use Types Packs/Day Years [...] Description 12/21/2024 9:00 AM EST Office Visit [facility] [address] [place] [address] Yolanda Aaron MD [address] [place] [address] documented as of this encounter Visit Diagnoses Not on filedocumented in this encounter Additional Health Concerns Assessment Noted Time PHQ-9 Depression Total Score: 9 01/05/20 24 8:58 AM EDT documented as of this encounter Care Teams Sole Painter Relationship Specialty Start Date End Date Yolanda Aaron MD [address] [place] [address] [phone] PCP - General Family Medicine 08/16/18 documented as of this encounter
--- OUTSIDE RECORDS SUMMARY | 2024-12-13 12:10 | XMS_ITS | Encounter Summary ---
Author Organization [employer] Address [address] [place] [address] Care Team Providers Care Sleep Scientist Name Role Phone Yolanda Aaron MD Primary Care Provider + Reason for Visit * Reason Onset Date Comments CRITICAL RESULT 12/08/2024 Encounter Details Date Type Department Care Team ([facility] st Contact Info) Description 12/08/2024 Telephone [facility] [address] [place], [place] [phone] Yolanda Aaron MD [address] [place] [address] CRITICAL RESULT Social History Tobacco Use Types Packs/Day Years [...] AM EDT documented as of this encounter Miscellaneous Notes * Telephone Encounter - Chely Veras RN - 12/08/2024 1:39 PM EST Incoming in basket message from triage AUBRYE Eckert to inform us of critical lab results glucose 58mg/dL drawn today at 1115. PCP made aware of critical results, reports they're not the ordering provider but recommends to contact ordering provider office and triage pt.Tc to pt to do status check on pt for hypoglycemia. Pt reports they're doing better they're experiencing slight dizziness and reports they're driving to get something to eat. Pt reports they were not fasting before their blood work and had breakfast. Pt reports this is the second time that this has happened to them. Pt reports their friend gave them a small snack because they felt lightheadedness at their appointment. Pt requesting a glucometer to check their BS, pt advised since they're not a diabetic and they would need to be evaluated by an provider first. Pt advised to eat small frequent meals, carry sweet or salty treat with them and juice. Pt provided with weekly and Thursday wic hours. Pt verbalized understandingand no further questions or concerns at this time. Tc to [facility] to confirm they're the orderingprovider for the CMP, Vitamin 2 25-OH and TSH Rflx and discussed with one of the RN who report pt was sen earlier this morning with Lois Rubio CNM and confirms they're the ordering provider. * Telephone Encounter - Tomeka Ennis RN - 12/08/2024 1:22 PM EST Incoming call to the Critical Result line 12/08/24 at 1:23 PM Name of Caller/Facility:[facility] Callback number: [phone] Reason for Call: Critical Glucose of 58mg/dL drawn today 12/08/24 at 1115 Attempt made to reach [facility] AT [phone], [phone], no contact made. Above information sent via High Priority [employer] chat Message, confirmed receipt by Chely BURGOS. In basket message to be sent asHIGH PRIORITY to Ordering Provider and Team nurses for follow up?? . documented in this encounter Plan of Treatment Upcoming Encounters Date Type Department Care Team (Late st Contact Info) Description 12/21/2024 9:00 AM EST Office Visit [facility] [address] [place] [address] Yolanda Aaron MD [address] [place] [address] documented as of this encounter Visit Diagnoses Not on filedocumented in this encounter Additional Health Concerns Assessment Noted Time PHQ-9 Depression Total Score: 9 01/05/20 24 8:58 AM EDT documented as of this encounter Care Teams Sleep Scientist Relationship Specialty Start Date End Date Yolanda Aaron MD [address] [place] [phone] PCP - General Family Medicine 08/16/18 documented as of this encounter
--- OUTSIDE RECORDS SUMMARY | 2024-12-13 12:10 | XMS_ITS | Clinical Summary ---
Author Organization [employer] Address [address] [place] [address] Care Team Providers Care Clinic Charge Nurse Name Role Phone Yolanda Aaron MD Primary Care Provider + Allergies No known active allergies Medications Calcium Carb-Cholecalc iferol 500-10 MG-MCG tablet Take 1 tablet by mouth in the morning and at bedtime. 08/07/20 22 Active ergocalciferol (Vitamin D2) 1.25 MG (66190 UT) capsule TAKE 1 CAPSULE BY MOUTH [...] referred to AUD program. Fu closely with head boys golf coach Hep B up to date Varicose veins [...] be referred to [facility] Recovery program. She declines [...] that she can drop of att he credit front office developer and request a referral at [facility] Counseled [...] 500-700s, she has been reluctant to continue fci anticoagulation. F yearly with hematology Re consutl [...] is able to initiate care with her [facility] agency prescriber, she will go ahead and do that instead. She should call [facility] and/or consult her PCP with any concerns. [...] close fu with mental health provider and head boys golf coach Counseled to cut down etoh use Pt [...] Plan (12/03/2022 11:27 AM EST): FU by [employer]AL[employer] ASSURANCE TESTER. Pat for PAP and pelvic US Coming [...] Encounters Date Type Department Care Team Description 12/08/2024 Orders Only GENERIC EXTERNAL DATA DEPARTMENT Provider, Generic External Data 12/08/2024 Telephone [facility] [address] [place] [address] Yolanda Aaron MD CRITICAL RESULT 11/30/2024 Refill [facility] [address] [place] [address] Yolanda Aaron MD 10/21/2024 Orders Only [facility] [address] [place] [address] Yolanda Aaron MD 10/21/2024 Telephone [facility] [address] [place] [address] Yolanda Aaron MD Results 10/20/2024 11:45 AM EST Office Visit [facility] [address] [place] [address] Yolanda Aaron MD Viral upper respiratory tract infection (Primary Dx); Acute vaginitis; Subacute vaginitis; Vitamin D deficiency; Major depressive disorder with psychotic features (CMS/HCC); Body aches; Erosive osteoarthritis of hands, bilateral 10/20/2024 Orders Only [facility] [address] [place] [address] Yolanda Aaron MD 10/20/2024 Travel 10/10/2024 Patient Outreach [facility] [address] [place] [address] Yolanda Aaron MD Pre-visit Planning (SDAZ screening completed on 04/04/2024) from Last 3 [...] 9:00 AM EST Office Visit [facility] [address] [place] [address] Yolanda Aaron MD [address] [place] [address] Health Maintenance Due Date Last Done Comments Lipid Panel 1985 Alcohol/Substance Use Screening 1997 Family Planning (PISQ) 2000 DTaP/Tdap/Td Vaccines (1 - Tdap) 2004 Hepatitis A Vaccines (1 of 2 - Risk 2-dose series) 2004 Pneumococcal Vaccine: Pediatrics (0 to 5 Years) and At-Risk Patients (6 to 49) Years) (1 of 2 - PCV) 2004 COVID-19 Vaccine (3 - season) 2024 07/28/2022, 07/28/2022 Influenza Vaccine (#1) 2024 Depression Monitoring (PHQ-9) 07/07/2024 01/05/2024, 01/05/2024 Mammogram 12/30/2024 12/31/2023, 11/2022, 04/19/2021, Additional history exists Depression Screening 01/04/2025 01/05/2024, 01/05/20 SDOH Screening 04/04/2025 04/04/2024 Tobacco Screening 10/20/2025 10/20/2024 Cervical Cancer Screening 02/12/2027 HPV/Cotest 02/12/2027 02/12/2022, 01/25, 10/05/2020, Additional history exists Pap Smear 02/12/2027 [...] Procedure Name Priority Date/Time Associated Diagnosis Comments HEMOGLOBIN A1C Routine 12/08/2024 11:17 AM EST Major depressive disorder with psychotic features (CMS/HCC) CANCELLED SEROLOGY Routine 12/08/2024 12 :00 AM EST CHLAMYDIA/N. GONORRHOEAE RNA, TMA, UROGENITAL Routine 12/08/2024 12:00 AM EST CULTURE, URINE, ROUTINE Routine 12/08/2024 12:00 AM EST BACTERIAL VAGINOSIS PANEL Routine 12/08/2024 12:00 AM EST POCT URINALYSIS DIPSTICK Routine 10/20/2024 12:43 PM [...] Recently Relevant to Health Maintenance Results * Hemoglobin A1c (12/08/2024 11:17 AM EST) Hemoglobin A1c 5.5 <6.0 % [facility] Comment:Hemoglobin A1C Refer ence Range Adults: 4.8 - 6.0 % Non diabetic: < 6.0 % Goal: < 7.0 %Additional Action Suggested: > 8.0 %Note: Hemoglobin A1c results are invalid for patients with abnormal amounts of HbF. Blood transfusions may impact the HbA1c concentration in the patient sample. Estimated Average Glucose 111 mg/dL [facility] Comment:eAG = Estimated ave rage glucose which is %A1C expressed asaverage glucose, using the formula of the L6G-TjfyxecTzegtuw Glucose study (ADAG), Diabetes Care, Vol.31,#8,2007 Blood Venous blood specimen / Unknown 12/08/2024 11:17 AM EST 12/08/2024 12:51 PM EST us Yolanda Aaron MD LAB BLOOD ORDERABLES Fin al Result Performing Organization Address City/[facility]/ZIP Co de Phone Number [facility] [address] [place] [phone] * Cancelled Serology (12/08/2024 12:00 AM EST) Pathologist [facility] Cancelled Serology SEE NOTE [facility] Comment:THE FOLLOWING TESTS WERE CANCELLED: Anti-HCV, HIV Ab/Ag,HBsAg, and Syphilis ScreenREASON: No specimen received 12/08/2024 12/08/2024 us Generic External Data Provider HISTORICAL/NON OR DERABLE LABS Final Result Performing Organization Address [facility] Co de Phone Number [facility] [address] [place] [phone] * (ABNORMAL) Bacterial Vaginosis (12/08/2024 12:00 AM EST) Only the most recent of2 resultswithin the time period is included. Pathologist [facility] TRICHOMONAS VAGINALIS DETECTION BY PCR NOT DETECTED Not Detect [facility] BACTERIAL VAGINOSIS DETECTION BY PCR NEGATIVE Negative [facility] Comment:The BV organism targ ets [...] GROUP DETECTION BY PCR DETECTED(A) Not Detect [facility] Serenity glab krusei PCR NOT DETECTED Not Detect [facility] 12/08/2024 12/08/2024 us Generic External Data Provider LAB MICROBIOLOGY - GENERAL ORDERABLES Final Result [facility] [address] [place] [phone] * Chlamydia/N. Gonorrhoeae RNA, TMA, Urogenitial (12/08/2024 12:00 AM EST) Only the most recent of2 resultswithin the time period is included. CT PCR NOT DETECTED Not Detect. [facility] Comment:A not detected test result [...] psychologicalconsequences. NG PCR NOT DETECTED Not Detect. [facility] Comment:A not detected test result [...] lead to adverse medical, social or psychologicalconsequences. 12/08/2024 12/08/2024 [facility] - 12/09/2024 1:59 PM EST Vaginal Generic External Data Provider LAB MICROBIOLOGY - GENERAL ORDERABLES Final Result Performing Organization Address [facility] Co de Phone Number [facility] [address] [place] [phone] * Culture, Urine, Routine (12/08/2024 12:00 AM EST) Urine Urine specimen obtained by clean catch procedure / Unknown 12/08/2024 12/08/2024 Comment:[facility] - 12/10/2024 9:49 AM EST Lactobacillus species Quant 50,000 to 100,000 cfu/mL Susc N/A Susceptibility not routinely performed on this isolate. Specimen Source: Urine clean catch Generic External Data Provider LAB MICROBIOLOGY - GENERAL ORDERABLES Final Result Performing Organization Address [facility] Co de Phone Number [facility] [address] [place] [phone] * POCT Urinalysis (10/20/2024 12:43 PM EST) [...] Media Lot # [id number] Lot# Expiration Date 025 Urine 10/20/2024 12:4 3 PM EST Result [facility] Yolanda Aaron MD POINT OF CARE TEST ENTER /EDIT ORDERABLES Final Result * POCT Rapid Covid-19 BinaxNOW (10/20/2024 12:04 PM EST) [facility] Rapid COVID Ag Negative QC Media Lot # [id number] Lot# Expiration Date ,026 Swab 10/20/2024 12:0 4 PM EST Result [facility] Yolanda Aaron MD POINT OF CARE TEST ENTER /EDIT ORDERABLES Final Result * POCT Rapid Influenza B OSOM (10/20/2024 12:04 PM EST) [facility] Rapid Influenza B Ag Negative Negative, Indeterminate QC Media Lot # [id number] Lot# Expiration Date , Swab 10/20/2024 12:0 4 PM EST Result [facility] Yolanda Aaron MD POINT OF CARE TEST ENTER /EDIT ORDERABLES Final Result * POCT Rapid Influenza A OSOM (10/20/2024 12:04 PM EST) [facility] Rapid Influenza A Ag Negative Negative, Indeterminate QC Media Lot # [id number] Lot# Expiration Date ,025 Swab Nasopharyngeal structure / Unknown 10/20/2024 12:04 PM EST Result [facility] Yolanda Aaron MD POINT OF CARE TEST ENTER /EDIT ORDERABLES Final Result * Hepatitis C Ab (09/05/2024 12:36 PM EST) [facility] Hepatitis C Antibody Nonreactive Nonreactive [facility] Comment:Antibodies to HCV no t detected; does not exclude early acuteHCV infection. 09/05/2024 12:3 6 PM EST 09/05/2024 12:36 PM EST us Generic External Data Provider LAB BLOOD ORDERAB LES Final Result [facility] [address] [place] [phone] * HIV-1/2 Antigen and Antibodies, Fourth Generation, with Reflexes (09/05/2024 12:36 PM EST) HIV AB/AG Nonreactive Nonreactive [facility] Comment:HIV-1 p24 Ag and/or HIV-1/HIV-2 Ab not detected.A test result that is nonreactive does not exclude thepossibility of exposure to or infection with HIV-1 and/orHIV-2. Nonreactive results in this assay for individualswith prior exposure to HIV-1 and/or HIV-2 may be due toantigen and antibody levels that are below the limit ofdetection of this assay.The [employer] HIV Ag/Ab Combo assay result andsupplemental assay results should be interpreted inconjunction with the patient's clinical presentation,history and other laboratory results. If the results areinconsistent with clinical evidence, additional testing issuggested to confirm the result. 09/05/2024 12:3 6 PM EST 09/05/2024 12:36 PM EST us Generic External Data Provider LAB BLOOD ORDERAB LES Final Result Performing Organization Address City/[facility]/ZIP Co de Phone Number [facility] [address] [place] [phone] * BI Mammogram Screening Tomosynthesis Bilateral (12/31/2023 2:10 PM EST) Anatomical Region Laterality Modality Breast Bilateral Mammography 12/31/2023 2:10 PM EST Narrative 01/11/2024 5:44 AM EDT ? [facility] ? [address] ?[place] [address] ? Mammography Report ? Signed ? Patient: Kevin,Nisha ?MR# ?? : [id number] ? : 1985 ?Acct:[id number] ? Age/Sex: 38 / F ?ADM Date: 12/31/23 ? Loc: HO.MAMMO ? Attending Dr: Yolanda Aaron MD ? Ordering Physician: Yolanda Aaron MD ?Results: 2Be ?? nign Findings ? Date of Service: 12/31/23 ?Follow Up: 1 Year From Orig ?? inal Mammogram ? Procedure(s): MM tomosynthesis screening BI ?? Accession Number(s): [id number] ? cc: Yolanda Aaron MD ? EXAMINATION: [...] 0540 ? DD/ 1410 ? TD/TT: ? Guest Service Agent: ? Procedure Note Donmarjoriechaseter, Image - 01/11/2024 [facility] [address] [place] [address] Mammography Report Signed Patient: Kiki Brown# : [id number] : 1985Acct:[id number] Age/Sex: 38 / FADM Date: 12/31/23 Loc: SAQIBO Attending Dr: Yolanda Aaron MD Ordering Physician: Yolanda Aaron MDResults: 2Be nign Findings Date of Service: 12/31/23Follow Up: 1 Year From Orig inal Mammogram Procedure(s): MM tomosynthesis screening BI Accession Number(s): [id number] cc: Yolanda Aaron MD EXAMINATION: MM SCREENING [...] in OV> 01/11/24 0540 DD/ 1410 TD/TT: Guest Service Agent: Yolanda Aaron MD IMG BI PROCEDURES Final Result * HPV E6/E7 RFLX XENIA 16 18/45 (02/12/2022 3:42 PM EDT) HPV mRNA E6/E7 rflx Not Detected Not Detected [facility] Comment: Methodology: Frank[employer]ter Inspector-Mediated Amplification This assay detects E6/E7 viral messenger RNA (mRNA) from 14 high-risk HPV types (16,18,31,33,35,39,45,51,52,56,58,59,66,68). The analytical performance characteristics of this assay have been determined by [employer]. The modifications have not been cleared or approved by the FDA. This assay has been validated pursuant to the CLIA regulations and is used for clinical purposes. For additional information, please refer to http://education.Oxynade/faq/LJA891e8 (This link if provided for information/ educational purposes only.) THIS TEST WAS PERFORMED AT: [facility] [address] [place] [address],[address] [place], [place] ??[phone] TREY MCELROY MD 02/12/2022 3:42 PM EDT Harmony Sheldon HISTORICAL/NON ORDERABLE LABS Fi nal Result [facility] [address] * Hm Pap Smear (02/12/2022) Historical Provider HEALTH MAINTENANCE Final Result from Last 3 Months or Most Recently Relevant to Health Maintenance [facility] Care Teams Clinic Charge Nurse Relationship Specialty Start Date End Date Yolanda Aaron MD [address] [place] [phone] PCP - General Family Medicine 08/16/18
--- OUTSIDE RECORDS SUMMARY | 2024-12-13 12:10 | XMS_ITS | Encounter Summary ---
Author Organization [employer] Address [address] [place] [address] Care Team Providers Care Automotive Parts Counter Assistant Name Role Phone Yolanda Aaron MD Primary Care Provider + Encounter Details Date Type Department Care Team (Late st Contact Info) Description 12/08/2024 Orders Only GENERIC EXTERNAL DATA DEPARTMENT Provider, Generic External Data Social History Tobacco Use Types Packs/Day Years [...] Description 12/21/2024 9:00 AM EST Office Visit [facility] [address] [place] [address] Yolanda Aaron MD [address] [place] [address] documented as of this encounter Procedures Procedure Name Priority Date/Time Associated Diagnosis Comments CANCELLED SEROLOGY Routine 12/08/2024 12 :00 AM EST BACTERIAL VAGINOSIS PANEL Routine 12/08/2024 12:00 AM EST CHLAMYDIA/N. GONORRHOEAE RNA, TMA, UROGENITAL Routine 12/08/2024 12:00 AM EST CULTURE, URINE, ROUTINE Routine 12/08/2024 12:00 AM EST documented in this encounter Results * Chlamydia/N. Gonorrhoeae RNA, TMA, Urogenitial (12/08/2024 12:00 AM EST) CT PCR NOT DETECTED Not Detect. [facility] Comment:A not detected test result [...] psychologicalconsequences. NG PCR NOT DETECTED Not Detect. [facility] Comment:A not detected test result [...] adverse medical, social or psychologicalconsequences. 12/08/2024 12/08/2024 Narrative [facility] - 12/09/2024 1:59 PM EST Vaginal us Generic External Data Provider LAB MICROBIOLOGY - GENERAL ORDERABLES Final Result [facility] [address] [place] [phone] * Culture, Urine, Routine (12/08/2024 12:00 AM EST) Urine Urine specimen obtained by clean catch procedure / Unknown 12/08/2024 12/08/2024 Comment:[facility] Narrative [facility] - 12/10/2024 9:49 AM EST Lactobacillus species Quant 50,000 to 100,000 cfu/mL Susc N/A Susceptibility not routinely performed on this isolate. Specimen Source: Urine clean catch [employer] External Data Provider LAB MICROBIOLOGY - GENERAL ORDERABLES Final Result Performing Organization Address [facility] de Phone Number [facility] [address] [place] [phone] * (ABNORMAL) Bacterial Vaginosis (12/08/2024 12:00 AM EST) TRICHOMONAS VAGINALIS DETECTION BY PCR NOT DETECTED Not Detect [facility] BACTERIAL VAGINOSIS DETECTION BY PCR NEGATIVE Negative [facility] Comment:The BV organism targ ets [...] GROUP DETECTION BY PCR DETECTED(A) Not Detect [facility] Serenity glab krusei PCR NOT DETECTED Not Detect [facility] 12/08/2024 12/08/2024 [employer] External Data Provider LAB MICROBIOLOGY - GENERAL ORDERABLES Final Result Performing Organization Address [facility] de Phone Number [facility] [address] [place] [phone] * Cancelled Serology (12/08/2024 12:00 AM EST) Cancelled Serology SEE NOTE [facility] Comment:THE FOLLOWING TESTS WERE CANCELLED: Anti-HCV, HIV Ab/Ag,HBsAg, and Syphilis ScreenREASON: No specimen received 12/08/2024 12/08/2024 Generic External Data Provider HISTORICAL/NON OR DERABLE LABS Final Result [facility] [address] [place] [phone] [phone] documented in this encounter Visit Diagnoses Not on filedocumented in this encounter Additional Health Concerns Assessment Noted Time PHQ-9 Depression Total Score: 9 01/05/20 24 8:58 AM EDT documented as of this encounter Care Teams Automotive Parts Counter Assistant Relationship Specialty Start Date End Date Yolanda Aaron MD [address] [place] [phone] PCP - General Family Medicine 08/16/18 documented as of this encounter
--- OUTSIDE RECORDS SUMMARY | 2024-12-13 12:10 | XMS_ITS | Encounter Summary ---
Author Organization [employer] Address [address] [place] [address] Care Team Providers Care Library Clerk Name Role Phone Yolanda Aaron MD Primary Care Provider + Cris Cabrera RN Unavailable [phone] Encounter Details Date Type Department Care Team (Late st Contact Info) Description 12/01/2022 Abstract [facility] [address] [place], [place] [phone] Yolanda Aaron MD [address] [place], [place] [phone] Social History Tobacco Use Types Packs/Day Years [...] Description 12/21/2024 9:00 AM EST Office Visit [facility] [address] [place] [address] Yolanda Aaron MD [address] [place] [phone] documented as of this encounter Visit Diagnoses Not on filedocumented in this encounter Additional Health Concerns Assessment Noted Time PHQ-9 Depression Total Score: 11 023 11:41 AM EST documented as of this encounter Care Teams Library Clerk Relationship Specialty Start Date End Date Yolanda Aaron MD [address] [place] [address] PCP - General Family Medicine 08/16/18 Cris Cabrera RN [address] [place] [phone] Brush Machine SetterLegal Examiner 04/25/24 08/03/24 documented as of this encounter
--- OUTSIDE RECORDS SUMMARY | 2024-12-13 12:11 | XMS_ITS | Encounter Summary ---
Author Organization [employer] Address [address] [place] [address] Care Team Providers Care Mines Safety Engineer Name Role Phone Yolanda Aaron MD Primary Care Provider + Cris Cabrera RN Unavailable [phone] Encounter Details Date Type Department Care Team (Late Contact Info) Description 04/20/2023 Abstract [facility] [address] [place] [phone] Yolanda Aaron MD [address] [place] [address] [phone] Social History Tobacco Use Types Packs/Day Years [...] Upcoming Encounters Date Type Department Care Team ([facility] Contact Info) Description 12/21/2024 9:00 AM EST Office Visit [facility] [address] [place] [address] Yolanda Aaron MD [address] [place] [address] documented as of this encounter Visit Diagnoses Not on filedocumented in this encounter Additional Health Concerns Assessment Noted Time PHQ-9 Depression Total Score: 13 023 2:39 PM EDT documented as of this encounter Care Teams Mines Safety Engineer Relationship Specialty Start Date End Date Yolanda Aaron MD [address] [place] [address] PCP - General Family Medicine 08/16/18 Cris Cabrera RN [address] [place] [phone] Second Floor OperatorWrap Turner 04/25/24 08/03/24 documented as of this encounter
--- OUTSIDE RECORDS SUMMARY | 2024-12-13 12:11 | XMS_ITS | Encounter Summary ---
Author Organization [employer] Address [address] [place] [address] Care Team Providers Care Manager Engagement Name Role Phone Yolanda Aaron MD Primary Care Provider + Cris Cabrera RN Unavailable [phone] Encounter Details Date Type Department Care Team (Late st Contact Info) Description 08/05/2023 Abstract [facility] [address] [place], [place] [phone] Yolanda Aaron MD [address] [place] [address] Social History Tobacco Use Types Packs/Day Years [...] Description 12/21/2024 9:00 AM EST Office Visit [facility] [address] [place] [phone] Yolanda Aaron MD [address] [place] [phone] documented as of this encounter Visit Diagnoses Not on filedocumented in this encounter Additional Health Concerns Assessment Noted Time PHQ-9 Depression Total Score: 023 3:33 PM EDT documented as of this encounter Care Teams Manager Engagement Relationship Specialty Start Date End Date Yolanda Aaron MD [address] [place] [address] PCP - General Family Medicine 08/16/18 Cris Cabrera RN [address] [place] [phone] Retail Loan OriginatorRn Resource Nurse 04/25/24 08/03/24 documented as of this encounter
--- OUTSIDE RECORDS SUMMARY | 2024-12-13 12:11 | XMS_ITS | Encounter Summary ---
Author Organization [employer] Address [address] [place] [address] Care Team Providers Care Scleroscope Tester Name Role Phone Yolanda Aaron MD Primary Care Provider + Cris Cabrera RN Unavailable [phone] Encounter Details Date Type Department Care Team (Late st Contact Info) Description 12/24/[address] [facility] [address] [place], [place] [phone] Yolanda aAron MD [address] [place], [place] [phone] Social History Tobacco Use Types Packs/Day Years [...] 12/21/2024 9:00 AM EST Office Visit [facility] [address] [place] [phone] Yolanda Aaron MD [address] [place] [phone] documented as of this encounter Visit Diagnoses Not on filedocumented in this encounter Additional Health Concerns Assessment Noted Time PHQ-9 Depression Total Score: 11 023 11:41 AM EST documented as of this encounter Care Teams Scleroscope Tester Relationship Specialty Start Date End Date Yolanda Aaron MD [address] [place] [address] PCP - General Family Medicine 08/16/18 Cris Cabrera RN [address] [place] [phone] District Associate JudgeBody Mechanic 04/25/24 08/03/24 documented as of this encounter
--- OUTSIDE RECORDS SUMMARY | 2024-12-13 12:11 | XMS_ITS | Encounter Summary ---
Author Organization [employer] Address [address] [place] [address] Care Team Providers Care Airport Manager Name Role Phone Yolanda Aaron MD Primary Care Provider + Cris Cabrera RN Unavailable [phone] Encounter Details Date Type Department Care Team (Late Contact Info) Description 07/20/2023 Orders Only [facility] MEDICINE [address] [place] [phone] Provider, MD Estelle Social History Tobacco Use [...] Upcoming Encounters Date Type Department Care Team ([facility] Contact Info) Description 12/21/2024 9:00 AM EST Office Visit [facility] MEDICINE [address] [place] [phone] Yolanda Aaron MD [address] [place] [address] documented as of this encounter Procedures Procedure [...] documented as of this encounter Care Teams Airport Manager Relationship Specialty Start Date End Date Yolanda Aaron MD [address] [place] [address] PCP - General Family Medicine 08/16/18 Cris Cabrera RN [address] [place] [address] Management ProfessionalsOptometric Aide 04/25/24 08/03/24 documented as of this encounter
[2024-12-13 13:40] LABS: Anion Gap 11 (12-20); Blood Urea Nitrogen 13 mg/dL (9-16); Calcium 9.4 mg/dL (8.4-10.2); Carbon Dioxide 26 mmol/L (22-29); Chloride 109 mmol/L (96-108); Estimated Glomerular Filt Rate > 60; Glucose Random 68 mg/dL (60-115); Potassium 3.9 mmol/L (3.3-5.1); Sodium 142 mmol/L (135-145)
[2024-12-14 08:28] LABS: HBsAGNum1 0.29 S/CO (0.00-0.99); HIV AB/AG Nonreactive (Nonreactive); HIV Num 1 0.22 S/CO (0.00-0.99); Hepatitis B Surface Antigen Negative (Negative); ~HepC Num1 0.07 S/CO (0.00-0.79); ~Hepatitis C Antibody Nonreactive (Nonreactive)
[2024-12-14 08:29] LABS: Syphilis Screen Nonreactive (Nonreactive)
[2024-12-17 16:13] LABS: Vitamin D 25-OH, D2 <4 ng/mL; Vitamin D 25-OH, D3 8 ng/mL; Vitamin D 25-OH, Total 8 ng/mL (30-100)
== END 2024-12-13 11:00 | disposition home or self-care (01) ==
LOC: HO.HHCL 10:59
PROVIDERS: Advanced Practice Midwife; Internal Medicine; Visit Provider Nurse Practitioner Family
DX: F32.3 Major depressive disorder, single episode, severe with psychotic features (principal); E55.9 Vitamin D deficiency, unspecified; Z11.3 Encounter for screening for infections with a predominantly sexual mode of transmission; N94.10 Unspecified dyspareunia; R87.619 Unspecified abnormal cytological findings in specimens from cervix uteri
CPT/HCPCS: 36415; 80048; 82306; 86780; 86803; 87340; 87389

== ENCOUNTER 2025-01-05 13:47 | Outpatient (REF) | payer MEDICAID, SELFPAY ==
--- OUTSIDE RECORDS SUMMARY | 2025-01-05 17:26 | XMS_ITS | Encounter Summary ---
Author Organization [employer] Address [address] [place] [address] Care Team Providers Care Centrifuge Separator Operator Name Role Phone Yolanda Aaron MD Primary Care Provider + Cris Cabrera RN Unavailable [phone] Encounter Details Date Type Department Care Team (Late st Contact Info) Description 12/01/2022 Abstract [facility] MEDICINE [address] [place], [place] [phone] Yolanda Aaron MD [address] [place], [place] [phone] Social History Tobacco Use Types Packs/Day Years [...] Care Team (Late st Contact Info) Description 01/13/2025 1:00 PM EDT Nutrition [facility] DIABETES/NUTRITION [address] [place] [address] [place] [address] 03/16/2025 10:30 AM EDT Office Visit [facility] MEDICINE [address] [place] [address] Yolanda Aaron MD [address] [place] [address] documented as of this encounter Visit Diagnoses Not on filedocumented in this encounter Additional Health Concerns Assessment Noted Time PHQ-9 Depression Total Score: 11 023 11:41 AM EST documented as of this encounter Care Teams Centrifuge Separator Operator Relationship Specialty Start Date End Date Yolanda Aaron MD [address] [place] [phone] PCP - General Family Medicine 08/16/18 Cris Cabrera RN [address] [place] [phone] Softball WinderStrategic Planning Specialist 04/25/24 08/03/24 documented as of this encounter
--- OUTSIDE RECORDS SUMMARY | 2025-01-05 17:27 | XMS_ITS | Encounter Summary ---
Author Organization [employer] Address [address] [place] [address] Care Team Providers Care Linux Systems Engineer Name Role Phone Yolanda Aaron MD Primary Care Provider + Cris Cabrera RN Unavailable [phone] Encounter Details Date Type Department Care Team (Late st Contact Info) Description 12/24/2022 Orders Only [facility] MEDICINE [address] [place], [place] [phone] Yolanda Aaron MD [address] [place], [place] [phone] Social History Tobacco Use Types Packs/Day Years [...] Info) Description 01/13/2025 1:00 PM EDT Nutrition [facility] DIABETES/NUTRITION [address] [place] [address] [place] [address] 03/16/2025 10:30 AM EDT Office Visit [facility] MEDICINE [address] [place] [address] Yolanda Aaron MD [address] [place] [address] documented as of this encounter Visit Diagnoses Not on filedocumented in this encounter Additional Health Concerns Assessment Noted Time PHQ-9 Depression Total Score: 11 023 11:41 AM EST documented as of this encounter Care Teams Linux Systems Engineer Relationship Specialty Start Date End Date Yolanda Aaron MD [address] [place] [address] PCP - General Family Medicine 08/16/18 Cris Cabrera RN [address] [place] [phone] Golf CaddyAir Dispatcher 04/25/24 08/03/24 documented as of this encounter
--- OUTSIDE RECORDS SUMMARY | 2025-01-05 17:27 | XMS_ITS | Encounter Summary ---
Author Organization [employer] Address [address] [place] [address] Care Team Providers Care Elevator Operator Freight Name Role Phone Yolanda Aaron MD Primary Care Provider + Reason for Visit * Reason Onset Date Comments Chart prep 12/15/2024 Encounter Details Date Type Department Care Team ([facility] st Contact Info) Description 12/15/2024 Telephone [facility] MEDICINE [address] [place], [place] [phone] Yolanda Aaron MD [address] [place] [address] Chart prep Social History Tobacco Use Types Packs/Day Years [...] encounter Miscellaneous Notes * Telephone Encounter - Tatiana Hall [place] - 12/15/2024 9:17 AM EST Chart Prep Labs: done Images: not done Vaccines due: yes Referrals: complete Screenings: Up to date Overdue care gaps: PHQ-9 documented in this encounter Plan of Treatment Upcoming Encounters Date Type Department Care Team (Late st Contact Info) Description 01/13/2025 1:00 PM EDT Nutrition [facility] DIABETES/NUTRITION [address] [place] [address] [place] [address] 03/16/2025 10:30 AM EDT Office Visit [facility] MEDICINE [address] [place] [address] Yolanda Aaron MD [address] [place] [address] documented as of this encounter Visit Diagnoses Not on filedocumented in this encounter Additional Health Concerns Assessment Noted Time PHQ-9 Depression Total Score: 9 01/05/20 24 8:58 AM EDT documented as of this encounter Care Teams Elevator Operator Freight Relationship Specialty Start Date End Date Yolanda Aaron MD [address] [place] [address] PCP - General Family Medicine 08/16/18 documented as of this encounter
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
--- OUTSIDE RECORDS SUMMARY | 2025-01-05 17:27 | XMS_ITS | Encounter Summary ---
Author Organization [employer] Address [address] [place] [address] Care Team Providers Care Anthropology Faculty Member Name Role Phone Yolanda Aaron MD Primary Care Provider + Encounter Details Date Type Department Care Team (Latest Contact Info) Description 12/21/2024 Travel Social History Tobacco Use Types Packs/Day Years [...] Info) Description 01/13/2025 1:00 PM EDT Nutrition [facility] DIABETES/NUTRITION [address] [place] [address] [place] [address] 03/16/2025 10:30 AM EDT Office Visit [facility] MEDICINE [address] [place] [address] Yolanda Aaron MD [address] [place] [address] documented as of this encounter Visit Diagnoses Not on filedocumented in this encounter Additional Health Concerns Assessment Noted Time PHQ-9 Depression Total Score: 9 01/05/20 24 8:58 AM EDT documented as of this encounter Care Teams Anthropology Faculty Member Relationship Specialty Start Date End Date Yolanda Aaron MD [address] [place] [phone] PCP - General Family Medicine 08/16/18 documented as of this encounter
--- OUTSIDE RECORDS SUMMARY | 2025-01-05 17:27 | XMS_ITS | Encounter Summary ---
Author Organization [employer] Address [address] [place] [address] Care Team Providers Care Motor Vehicle Assembly Supervisor Name Role Phone Yolanda Aaron MD Primary Care Provider + Encounter Details Date Type Department Care Team (Late st Contact Info) Description 12/13/2024 Orders Only GENERIC EXTERNAL DATA DEPARTMENT [...] Info) Description 01/13/2025 1:00 PM EDT Nutrition [facility] DIABETES/NUTRITION [address] [place] [address] [place] [address] 03/16/2025 10:30 AM EDT Office Visit [facility] MEDICINE [address] [place] [address] Yolanda Aaron MD [address] [place] [address] documented as of this encounter Procedures Procedure Name Priority Date/Time Associated Diagnosis Comments SYPHILIS SCREEN Routine 12/13/2024 11:02 AM EST VITAMIN D 25-OH (D2 AND D3) Routine 12/13/2024 11:02 AM EST HEPATITIS C ANTIBODY Routine 12/13/2024 11:02 AM EST HEPATITIS B SURFACE ANTIGEN, EIA Routine 12/13/2024 11:02 AM EST HIV 1/2 ANTIGEN/ANTIBODY, FOURTH GENERATION W/RFL Routine 12/13/2024 11:02 AM EST documented in this encounter Results * (ABNORMAL) VITAMIN D 25-OH (D2 AND D3) (12/13/2024 11:02 AM EST) Vitamin D, 25-OH, D2 <4 ng/mL [facility] Comment:This test was develo ped and its analytical performancecharacteristics have been determined by [facility] [place], [place]. It hasnot been cleared or approved by the U.S. Food and DrugAdministration. This assay has been validated pursuantto the CLIA regulations and is used for clinicalpurposes.THIS TEST WAS PERFORMED AT:[employer] [id number] [place] [address]HKWOXJTGINETTE WARREN MD,PHD Vitamin D, 25-OH, D3 8 ng/mL [facility] Comment:This test was develo ped and its analytical performancecharacteristics have been determined by [facility] [place], [place]. It hasnot been cleared or approved by the U.S. Food and DrugAdministration. This assay has been validated pursuantto the CLIA regulations and is used for clinicalpurposes. Vitamin D, 25-OH, Total 8(A) 30 - 100 ng/mL [facility] Comment:Vitamin D, 25-Hydrox y reports [...] = 30 ng/mL.For additional information, please refer tohttp://education.LoSo/faq/GKX248(This link is being provided for informational/educational purposes only.) 12/13/2024 11:0 2 AM EST 12/13/2024 1:04 PM EST Generic External Data Provider LAB BLOOD ORDERAB LES Final Result Performing Organization Address [facility] Co de Phone Number [facility] [address] [place] [phone] * Hepatitis B surface antigen, EIA (12/13/2024 11:02 AM EST) Hepatitis B Surface Ag Negative Negative [facility] 12/13/2024 11:0 2 AM EST 12/13/2024 1:04 PM EST Generic External Data Provider LAB BLOOD ORDERAB LES Final Result Performing Organization Address [facility] Number [facility] [address] [place] [phone] * HIV-1/2 Antigen and Antibodies, Fourth Generation, with Reflexes (12/13/2024 11:02 AM EST) HIV AB/AG Nonreactive Nonreactive [facility] Comment:HIV-1 p24 Ag and/or HIV-1/HIV-2 Ab not detected.A test result that is nonreactive does not exclude thepossibility of exposure to or infection with HIV-1 and/orHIV-2. Nonreactive results in this assay for individualswith prior exposure to HIV-1 and/or HIV-2 may be due toantigen and antibody levels that are below the limit ofdetection of this assay.The 1d4 [employer] HIV Ag/Ab Combo assay result andsupplemental assay results should be interpreted inconjunction with the patient's clinical presentation,history and other laboratory results. If the results areinconsistent with clinical evidence, additional testing issuggested to confirm the result. 12/13/2024 11:0 2 AM EST 12/13/2024 1:04 PM EST Generic External Data Provider LAB BLOOD ORDERAB LES Final Result Performing Organization Address [facility] Co de Phone Number [facility] [address] [place] [phone] * Hepatitis C Ab (12/13/2024 11:02 AM EST) Hepatitis C Antibody Nonreactive Nonreactive [facility] Comment:Antibodies to HCV no t detected; does not exclude early acuteHCV infection. 12/13/2024 11:0 2 AM EST 12/13/2024 1:04 PM EST us Generic External Data Provider LAB BLOOD ORDERAB LES Final Result Performing Organization Address [facility] Co de Phone Number [facility] [address] [place] [phone] * Syphilis Screen (12/13/2024 11:02 AM EST) Syphilis Screen Nonreactive Nonreactive [facility] 12/13/2024 11:0 2 AM EST 12/13/2024 1:04 PM EST us Generic External Data Provider LAB BLOOD ORDERAB LES Final Result Performing Organization Address [facility] de Phone Number [facility] [address] [place] [phone] documented in this encounter Visit Diagnoses Not on filedocumented in this encounter Additional Health Concerns Assessment Noted Time PHQ-9 Depression Total Score: 9 01/05/20 24 8:58 AM EDT documented as of this encounter Care Teams Motor Vehicle Assembly Supervisor Relationship Specialty Start Date End Date Yolanda Aaron MD [address] [place] [phone] PCP - General Family Medicine 08/16/18 documented as of this encounter
--- OUTSIDE RECORDS SUMMARY | 2025-01-05 17:27 | XMS_ITS | Encounter Summary ---
Author Organization [employer] Address [address] [place] [address] Care Team Providers Care Hog Slaughterer Name Role Phone Yolanda Aaron MD Primary Care Provider + Reason for Visit * Reason Onset Date Comments ER Follow-up 12/13/2024 Encounter Details Date Type Department Care Team (Late st Contact Info) Description 12/13/2024 Telephone [facility] MEDICINE [address] [place], [place] [phone] Yolanda Aaron MD [address] [place], [place] [phone] ER Follow-up Social History Tobacco Use Types Packs/Day Years [...] encounter Miscellaneous Notes * Telephone Encounter - Miri Zuniga RN - 12/13/2024 3:23 PM EST Telephone call to the pt regarding the previous message . Pt states she went to the Er on 12/08/24 for a low blood sugar , and not feeling well. States she did not stay as the ER was very full . States she feels she may have Influenza A ,as her daughter tested positive for this . States she has ahoarse voice ,and a very sore throat . Pt was advised to go to the [facility] for an appt . Pt verbalized understanding ,and agrees with the plan. * Telephone Encounter - Jacqueline Chery - 12/13/2024 1:49 PM EST Patient calling to report ED visit on : Date: 12/08 Hospital: [facility] Seen for: Low blood sugar Symptomatic No *if yes message should go to Triage Patient advised will forward to team nurse for follow up [phone] documented in this encounter Plan of Treatment Upcoming Encounters Date Type Department Care Team (Late st Contact Info) Description 01/13/2025 1:00 PM EDT Nutrition [facility] DIABETES/NUTRITION [address] [place] [address] [place] [address] 03/16/2025 10:30 AM EDT Office Visit [facility] MEDICINE [address] [place], [place] [phone] Yolanda Aaron MD [address] [place], [place] [phone] documented as of this encounter Visit Diagnoses Not on filedocumented in this encounter Additional Health Concerns Assessment Noted Time PHQ-9 Depression Total Score: 9 01/05/20 24 8:58 AM EDT documented as of this encounter Care Teams Hog Slaughterer Relationship Specialty Start Date End Date Yolanda Aaron MD [address] [place], [place] [phone] PCP - General Family Medicine 08/16/18 documented as of this encounter
--- OUTSIDE RECORDS SUMMARY | 2025-01-05 17:27 | XMS_ITS | Encounter Summary ---
Author Organization [employer] Address [address] [place] [address] Care Team Providers Care Pain Medicine Physician Name Role Phone Yolanda Aaron MD Primary Care Provider + Reason for Visit * Reason Onset Date Comments CRITICAL RESULT 12/08/2024 Encounter Details Date Type Department Care Team ([facility] st Contact Info) Description 12/08/2024 Telephone [facility] MEDICINE [address] [place], [place] [phone] Yolanda Aaron MD [address] [place] [address] CRITICAL RESULT Social History Tobacco Use Types [...] your housing situation today? I have xavi kamniski 04/04/[address] you li [...] EST Incoming in basket message from triage AUBREY Eckert to inform us of critical lab [...] or concerns at this time. Tc to [facility] to confirm they're the orderingprovider for the [...] 12/08/24 at 1:23 PM Name of Caller/Facility:Joelle [facility] Callback number: [phone] Reason for Call: Critical Glucose of 58mg/dL drawn today 12/08/24 at 1115 Attempt made to reach [facility] AT [phone], no contact made. Above information sent via High Priority [employer] chat Message, confirmed receipt by Chely BURGOS. In basket message to be sent asHIGH PRIORITY to Ordering Provider and Team nurses for follow up?? . documented in this encounter Plan of Treatment Upcoming Encounters Date Type Department Care Team (Late st Contact Info) Description 01/13/2025 1:00 PM EDT Nutrition [facility] DIABETES/NUTRITION [address] [place] [address] Natalee Tamez, LESLY [address] [place] [address] 03/16/2025 10:30 AM EDT Office Visit [facility] MEDICINE [address] [place] [address] Yolanda Aaron MD [address] [place] [address] documented as of this encounter Visit Diagnoses Not on filedocumented in this encounter Additional Health Concerns Assessment Noted Time PHQ-9 Depression Total Score: 9 01/05/20 24 8:58 AM EDT documented as of this encounter Care Teams Pain Medicine Physician Relationship Specialty Start Date End Date Yolanda Aaron MD [address] [place] [address] PCP - General Family Medicine 08/16/18 documented as of this encounter
--- OUTSIDE RECORDS SUMMARY | 2025-01-05 17:27 | XMS_ITS | Encounter Summary ---
Author Organization [employer] Address [address] [place] [address] Care Team Providers Care Cottage Cheese Maker Name Role Phone Yolanda Aaron MD Primary Care Provider + Cris Cabrera RN Unavailable [phone] Encounter Details Date Type Department Care Team (Late st Contact Info) Description 08/05/2023 Abstract [facility] MEDICINE [address] [place], [place] [phone] Yolanda Aaron MD [address] [place] [address] Social History Tobacco Use Types Packs/Day Years Used Date Smoking Tobacco: Every Day Cigarettes Passive Smoke Exposure: Current Smokeless Tobacco: Never Alcohol Use Standard Drinks/Week Comments Yes 0 (1 standard drink = 0.6 oz pur e alcohol) oca Depression Answer Date Recorded Patient Health Questionnaire-9 Score 10 06/08/2023 Housing Stability Answer Date Recorded What is your housing situation today? I have xaviryan kamisnki 08/04/[address] you li [...] Info) Description 01/13/2025 1:00 PM EDT Nutrition [facility] DIABETES/NUTRITION [address] [place] [phone] Natalee Tamez, LESLY [address] [place] [phone] 03/16/2025 10:30 AM EDT Office Visit [facility] MEDICINE [address] [place] [phone] Yolanda Aaron MD [address] [place] [phone] documented as of this encounter Visit Diagnoses Not on filedocumented in this encounter Additional Health Concerns Assessment Noted Time PHQ-9 Depression Total Score: 023 3:33 PM EDT documented as of this encounter Care Teams Cottage Cheese Maker Relationship Specialty Start Date End Date Yolanda Aaron MD [address] [place] [phone] PCP - General Family Medicine 08/16/18 Cris Cabrera RN [address] [place] [phone] Fruit LoaderRoller Inspector 04/25/24 08/03/24 documented as of this encounter
--- OUTSIDE RECORDS SUMMARY | 2025-01-05 17:27 | XMS_ITS | Encounter Summary ---
Author Organization [employer] Address [address] [facility] [address] [place] [address] Care Team Providers Care Rodding Machine Tender Name Role Phone Yolanda Bingham MD Primary Care Provider + Reason for Referral * Consultation (Routine) - Closed Specialty Diagnoses / Procedures Referred By Júnior terrazas Referred To Contact Psychiatry / Behavioral Health Diagnoses Major depressive disorder with psychotic features (CMS/HCC) Yolanda Bingham MD [address] [place] [address] Phone: tel: fax: Jj Howe, PMHNP [address] [place] [address] Phone: tel: fax: Referral ID Status Reason Start Date Expiration Date V isits Requested Visits Authorized [id number] Closed Specialty Services Required 12/21/2024 12/21/2025 1 1 * Consultation (Routine) - Closed Specialty Diagnoses / Procedures Referred By Júnior terrazas Referred To Contact Gastroenterology Diagnoses Slow transit constipation Yolanda Bingham MD [address] [place] [address] Phone: tel: fax: [facility] [address] [place], [place] Phone: tel: fax: Referral ID Status Reason Start Date Expiration Date V isits Requested Visits Authorized [id number] Closed Specialty Services Required 12/22/2024 12/22/2025 6 6 * Consultation (Routine) - Closed Specialty Diagnoses / Procedures Referred By Contac t Referred To Contact Occupational Therapy Diagnoses Erosive osteoarthritis of hands, bilateral Yolanda Bingham MD [address] [place] [phone] Phone: tel: fax: [facility] [address] [place] [address] Phone: tel: fax: Referral ID Status Reason Start Date Expiration Date V isits Requested Visits Authorized [id number] Closed Specialty Services Required 12/23/2024 12/23/2025 20 20 * Consultation (Routine) - Authorized Specialty Diagnoses / Procedures Referred By Contbritney t Referred To Contact Nutrition Diagnoses Hyperglycemia Class 1 obesity due to excess calories with serious comorbidity and body mass index (BMI) of 33.0 to 33.9 in adult Yolanda Bingham MD [address] [place] [address] Phone: tel: fax: Referral ID Status Reason Start Date Expiration Date Visits Requested Visits Authorized [id number] Authorized Consult and Treat 12/21/2024 12/21/2025 1 1 Reason for Visit * Reason Comments Follow-up Encounter Details Date Type Department Care Team (Latest Contact Info) Description 12/21/2024 9:00 AM EST Office Visit [facility] [address] [place] [phone] Yolanda Bingham MD [address] [place] [address] Erosive osteoarthritis of hands, bilateral (Primary Dx); Major depressive disorder with psychotic features (CMS/HCC); Tremor of both hands; Hyperglycemia; Slow transit constipation; Class 1 obesity due to excess calories with serious comorbidity and body mass index (BMI) of 33.0 to 33.9 in adult; Dietary counseling; Exercise counseling Social History Tobacco Use Types Packs/Day Years [...] the past 12 months, has t he [employer], gas, oil or water [employer] threatened to shut off services in your [...] AM EDT documented as of this encounter Last Filed Vital Signs Vital Sign Reading Time Taken Comments Blood Pressure 116/81 12/21/2024 9:11 AM EST Pulse 75 12/21/2024 9:11 AM EST Temperature 35.3 ??C (95.6 ??F) 12/21/2024 9:11 AM ES T Respiratory Rate - - Oxygen Saturation 100% 12/21/2024 9:11 AM EST Inhaled Oxygen Concentration - - Weight 82.3 kg (181 lb 6 oz) 12/21/2024 9:11 AM EST Height 157.5 cm (5' 2 ) 12/21/2024 9:11 AM EST Body Mass Index 33.17 12/21/2024 9:11 AM EST documented in this encounter Progress Notes * Yolanda Bingham MD - 12/21/2024 9:00 AM EST SUBJECTIVE: Nisha Cantu is a 39 y.o. year old female who presents for FU MDD/OA . Denies recent illness, injury, or hospitalization. X-rays of both hands ordered on July 2024 were not done. She continues with bilateral hand pain and weakness especially when doing activities that involve lifting and using her hands. She is also concerned about colon cancer as her younger cousin was recently diagnosed with colon cancer. Her father was also diagnosed with colon cancer after age 50. She has constipation regularly that is improved with OTC fiber and water, has occasional bright red blood per rectum apparently related to hemorrhoids, denies weight loss or persistent abdominal pain. Her recent labs on 12/13/2024 ordered by [employer] MAINTENANCE WORKER showed negative STI, blood sugar down to 68, otherwise normal BMP and A1c. Her vaginal swab showed vaginal candidiasis, she was never treated and reports mild vaginal discharge and significant vaginal pruritus. Her vitamin D is low and she was started on v itamin D supplementation. Patient is currently taking Seroquel 150 mg nightly and all other medication for depression, she sees a psychotherapist every week but has not seen a psychiatry after Jose Cooney retired.. Acute Concerns: Social History Social History Narrative Not on file Patient Active Problem List Diagnosis Vitamin D deficiency Visual impairment Viral upper respiratory tract infection Stress incontinence of urine Smoker Pain in female pelvis Decreased vision in both eyes Herpes simplex Fever with chills ASCUS with positive high risk HPV cervical Arthritis of knee Anxiety disorder Alcoholic hepatitis Major depressive disorder with psychotic features (CMS/HCC) Alcohol use Hyperglycemia Hypercoagulable state (CMS/HCC) Alcoholism (CMS/HCC) Tremor of both hands Alcoholic cirrhosis (CMS/HCC) Varicose veins of both lower extremities with pain Post-traumatic osteoarthritis of left knee Encounter for preventive health examination Bipolar I disorder with depression (CMS/HCC) Elevated liver enzymes Panic attack Erosive osteoarthritis of hands, bilateral Trigger index finger of right hand Slow transit constipation Class 1 obesity due to excess calories with serious comorbidity and body mass index (BMI) of 33.0 to 33.9 in adult No family history on file. Review of Systems Constitutional: Negative for chills, fatigue and fever. HENT: Negative for congestion, ear pain, nosebleeds, rhinorrhea, sinus pressure, sore throat and trouble swallowing. Eyes: Negative for pain and discharge. Respiratory: Negative for cough, chest tightness and shortness of breath. Cardiovascular: Negative for chest pain, palpitations and leg swelling. Gastrointestinal: Positive for blood in stool and constipation. Negative for abdominal pain, diarrhea and nausea. Endocrine: Negative for polydipsia and polyuria. Genitourinary: Positive for vaginal discharge. Negative for dysuria, frequency, genital sores and pelvic pain. Musculoskeletal: Positive for arthralgias and back pain. Negative for neck pain. Skin: Negative for rash. Allergic/Immunologic: Negative for environmental allergies. Neurological: Negative for dizziness, seizures, weakness, light-headedness and headaches. Hematological: Negative for adenopathy. Psychiatric/Behavioral: Negative for agitation, behavioral problems, self-injury and suicidal ideas. The patient is nervous/anxious. OBJECTIVE: Vitals: 12/21/24 0911 BP: 116/81 Pulse: 75 Temp: 95.6 ??F (35.3 ??C) SpO2: 100% Physical Exam Constitutional: Appearance: Normal appearance. HENT: Right Ear: Tympanic membrane and ear canal normal. Left Ear: Tympanic membrane and ear canal normal. Mouth/Throat: Mouth: Mucous membranes are moist. Pharynx: No oropharyngeal exudate or posterior oropharyngeal erythema. Eyes: Pupils: Pupils are equal, round, and reactive to light. Cardiovascular: Rate and Rhythm: Normal rate and regular rhythm. Heart sounds: No murmur heard. Pulmonary: Breath sounds: Normal breath sounds. No wheezing. Abdominal: General: Bowel sounds are normal. Palpations: Abdomen is soft. Tenderness: There is no abdominal tenderness. Musculoskeletal: General: Normal range of motion. Right wrist: Tenderness present. Left wrist: Tenderness present. Right hand: Tenderness present. Left hand: Tenderness present. Cervical back: Normal range of motion. No tenderness. Lumbar back: Tenderness present. Skin: General: Skin is warm. Neurological: General: No focal deficit present. Mental Status: She is alert and oriented to person, place, and time. Psychiatric: Mood and Affect: Mood normal. Problem List Items Addressed This Visit Erosive osteoarthritis of hands, bilateral - Primary Advised to get x-rays and agreed to OT referral Continue Tylenol as needed and follow-up in 3 months Relevant Orders Referral to Occupational Therapy Major depressive disorder with psychotic features (CMS/HCC) Doing well on Seroquel 150 mg nightly and other medications, will refer her to psychiatrist to adjust medications that have a safer metabolic profile. Continue Sertraline + Clonidine + Perphenazine QHS. She feels safe at home and is able to reach out for safety, she will continue to follow-up with psychotherapist Tremor of both hands Most likely related to OA, rule out neuropathy Hyperglycemia Patient has episodes of hyper and hypoglycemia, probably IFG. Last A1c was at goal. I have discussed with patient regarding increasing physicial activity and decrease calorie intake Check A1c q6-12m Referred to nutrition, advised to lose weight Relevant Orders Referral to Nutrition Therapy Slow transit constipation Recurrent, she has abdominal bloating most likely due to inadequate diet. Advised to increase fiber intake and water Referred to GI due to history of father with colon cancer at age 50 Relevant Orders Referral to Gastroenterology Class 1 obesity due to excess calories with serious comorbidity and body mass index (BMI) of 33.0 to 33.9 in adult Discussed re weight reduction options including exercise, life style modifications, diet. Recommended to decrease soda and sugary beverage consumption, increase protein intake with meals (at least 1 portion of protein with each meal) to assist with satiety, increase dietary fiber Recommended at least 150 min/week of moderate intensity exercise. Agreed to a referral to dietitian Relevant Orders Referral to Nutrition Therapy Other Visit Diagnoses Dietary counseling Exercise counseling Follow Up: Current Outpatient Medications on File Prior to Visit Medication Sig Dispense Refill Calcium Carb-Cholecalciferol 500-10 MG-MCG tablet Take 1 tablet by mouth in the morning and at bedtime. cloNIDine (Catapres) 0.1 MG tablet Take 1 tablet (0.1 mg) by mouth at bedtime. 90 tablet 3 emtricitabine-tenofovir DF (Truvada) 200-300 MG tablet TAKE 1 TABLET BY MOUTH EVERY MORNING 30 tablet 2 ergocalciferol (Vitamin D2) 1.25 MG (76345 UT) capsule TAKE 1 CAPSULE BY MOUTH ONCE A WEEK 4 capsule 6 fluticasone (Flonase) 50 MCG/ACT nasal spray Administer 1 spray into each nostril Once per day. 16 g 2 hydrOXYzine HCl (Atarax) 25 MG tablet Take 1-2 tablets (25-50 mg) by mouth every 6 (six) hours if needed for anxiety. 150 tablet 11 perphenazine 4 MG tablet Take 1 tablet (4 mg) by mouth 2 times daily. 180 tablet 3 QUEtiapine (SEROquel) 100 MG tablet Take 1 tablet (100 mg) by mouth at bedtime. 90 tablet 3 senna-docusate sodium (Senokot-S) 8.6-50 MG tablet Take 1 tablet by mouth Once per day. 30 tablet 0 sertraline (Zoloft) 100 MG tablet Take 1.5 tablets (150 mg) by mouth Once per day. 135 tablet 3 No current facility-administered medications on file prior to visit. * Yolanda Bingham MD - 12/21/2024 9:00 AM EST Psych appt for January is ok. Thank you, I sent referral as routine documented in this encounter Miscellaneous Notes * Assessment & Plan Note - Yolanda Bingham MD - 12/21/2024 11:49 AM EST Associated Problem(s): Class 1 obesity due to excess calories with serious comorbidity and body mass index (BMI) of 33.0 to 33.9 in adult Discussed re weight reduction options including exercise, life style modifications, diet. Recommended to decrease soda and sugary beverage consumption, increase protein intake with meals (at least 1 portion of protein with each meal) to assist with satiety, increase dietary fiber Recommended at least 150 min/week of moderate intensity exercise. Agreed to a referral to dietitian * Assessment & Plan Note - Yolanda Bingham MD - 12/21/2024 11:48 AM EST Associated Problem(s): Major depressive disorder with psychotic features (CMS/HCC) Doing well on Seroquel 150 mg nightly and other medications, will refer her to psychiatrist to adjust medications that have a safer metabolic profile. Continue Sertraline + Clonidine + Perphenazine QHS. She feels safe at home and is able to reach out for safety, she will continue to follow-up with psychotherapist * Assessment & Plan Note - Yolanda Bingham MD - 12/21/2024 11:47 AM EST Associated Problem(s): Hyperglycemia Patient has episodes of hyper and hypoglycemia, probably IFG. Last A1c was at goal. I have discussed with patient regarding increasing physicial activity and decrease calorie intake Check A1c q6-12m Referred to nutrition, advised to lose weight * Assessment & Plan Note - Yolanda Bingham MD - 12/21/2024 11:46 AM EST Associated Problem(s): Tremor of both hands Most likely related to OA, rule out neuropathy * Assessment & Plan Note - Yolanda Bingham MD - 12/21/2024 11:46 AM EST Associated Problem(s): Erosive osteoarthritis of hands, bilateral Advised to get x-rays and agreed to OT referral Continue Tylenol as needed and follow-up in 3 months * Assessment & Plan Note - Yolanda Bingham MD - 12/21/2024 11:46 AM EST Associated Problem(s): Slow transit constipation Recurrent, she has abdominal bloating most likely due to inadequate diet. Advised to increase fiber intake and water Referred to GI due to history of father with colon cancer at age 50 * Addendum Note - Yolanda Bingham MD - 12/21/2024 9:00 AM ESTAddended by: YOLANDA BINGHAM on: 12/21/2024 01:50 PM Modules accepted: Orders documented in this encounter Plan of Treatment Upcoming Encounters Date Type Department Care Team (Late st Contact Info) Description 01/13/2025 1:00 PM EDT Nutrition [facility] [address] [place] [phone] [place] [address] 03/16/2025 10:30 AM EDT Office Visit [facility] [address] [place] [address] [phone] Yolanda Bingham MD [address] [place] [address] Scheduled Referrals Name Type Priority Associated Diagnoses Orde r Schedule Referral to Nutrition Therapy Outpatient Referral Routine Hyperglycemia Class 1 obesity due to excess calories with serious comorbidity and body mass index (BMI) of 33.0 to 33.9 in adult Expected: 12/21/2024 (Approximate), Expires: 12/21/2025 Referral to Occupational Therapy Outpatient Referral Routine Erosive osteoarthritis of hands, bilateral Expected: 12/21/2024 (Approximate), Expires: 12/21/2025 Referral to Gastroenterology Outpatient Referral Routine Slow transit constipation Expected: 12/21/2024 (Approximate), Expires: 12/21/2025 Referral to Behavioral Health Psychiatry Outpatient Referral Routine Major depressive disorder with psychotic features (CMS/HCC) Expected: 12/21/2024 (Approximate), Expires: 12/21/2025 documented as of this encounter Visit Diagnoses Diagnosis Erosive osteoarthritis of hands, bilateral- Primary Major depressive disorder with psychotic features (CMS/HCC) Tremor of both hands Hyperglycemia Other abnormal glucose Slow transit constipation Class 1 obesity due to excess calories with serious comorbidity and body mass index (BMI) of 33.0 to 33.9 in adult Dietary counseling Dietary surveillance and counseling Exercise counseling documented in this encounter Additional Health Concerns Assessment Noted Time PHQ-9 Depression Total Score: 9 01/05/20 24 8:58 AM EDT documented as of this encounter Care Teams Rodding Machine Tender Relationship Specialty Start Date End Date Yolanda Bingham MD [address] [place] [phone] PCP - General Family Medicine 08/16/18 documented as of this encounter
--- OUTSIDE RECORDS SUMMARY | 2025-01-05 17:27 | XMS_ITS | Encounter Summary ---
Author Organization [employer] Address [address] [facility] [address] [facility] [address] [address] [place] [address] Care Team Providers Care Registered Route Associate Name Role Phone Yolanda Aaron MD Primary [...] Info) Description 01/13/2025 1:00 PM EDT Nutrition [facility] [address] [place] [address] [place] [address] 03/16/2025 10:30 AM EDT Office Visit [facility] [address] [place] [address] Yolanda Aaron MD [address] [place] [address] documented as of this encounter Procedures Procedure [...] EST) CT PCR NOT DETECTED Not Detect. [facility] Comment:A not detected test result does [...] psychologicalconsequences. NG PCR NOT DETECTED Not Detect. [facility] Comment:A not detected test result does [...] medical, social or psychologicalconsequences. 12/08/2024 12/08/2024 Narrative [facility] - 12/09/2024 1:59 PM EST Vaginal us Generic External Data Provider LAB MICROBIOLOGY - GENERAL ORDERABLES Final Result [facility] [address] [place] [address] [phone] * Culture, Urine, Routine (12/08/2024 12:00 AM EST) Urine Urine specimen obtained by clean catch procedure / Unknown 12/08/2024 12/08/2024 Comment:[facility] Narrative [facility] - 12/10/2024 9:49 AM EST Lactobacillus species Quant 50,000 to 100,000 cfu/mL Susc N/A Susceptibility not routinely performed on this isolate. Specimen Source: Urine clean catch Generic External Data Provider LAB MICROBIOLOGY - GENERAL ORDERABLES Final Result Performing Organization Address [facility] Co de Phone Number [facility] [address] [place] [phone] * (ABNORMAL) Bacterial Vaginosis (12/08/2024 12:00 AM EST) TRICHOMONAS VAGINALIS DETECTION BY PCR NOT DETECTED Not Detect [facility] BACTERIAL VAGINOSIS DETECTION BY PCR NEGATIVE Negative [facility] Comment:The BV organism targ ets of [...] GROUP DETECTION BY PCR DETECTED(A) Not Detect [facility] Serenity glab krusei PCR NOT DETECTED Not Detect [facility] 12/08/2024 12/08/2024 Generic External Data Provider LAB MICROBIOLOGY - GENERAL ORDERABLES Final Result Performing Organization Address [facility] Co de Phone Number [facility] [address] [place] [phone] * Cancelled Serology (12/08/2024 12:00 AM EST) Cancelled Serology SEE NOTE [facility] Comment:THE FOLLOWING TESTS WERE CANCELLED: Anti-HCV, HIV Ab/Ag,HBsAg, and Syphilis ScreenREASON: No specimen received 12/08/2024 12/08/2024 us Generic External Data Provider HISTORICAL/NON OR DERABLE LABS Final Result Performing Organization Address City/State/[facility] Co de Phone Number [facility] [address] [place] [address] [phone] documented in this encounter Visit Diagnoses Not on filedocumented in this encounter Additional Health Concerns Assessment Noted Time PHQ-9 Depression Total Score: 9 01/05/20 24 8:58 AM EDT documented as of this encounter Care Teams Registered Route Associate Relationship Specialty Start Date End Date Yolanda Aaron MD [address] [place] [phone] PCP - General Family Medicine 08/16/18 documented as of this encounter
--- OUTSIDE RECORDS SUMMARY | 2025-01-05 17:27 | XMS_ITS | Encounter Summary ---
Author Organization [employer] Address [address] [address] [place] [address] Care Team Providers Care Social Worker Name Role Phone Yolanda Aaron MD Primary Care Provider + Cris Cabrera RN Unavailable [phone] Encounter Details Date Type Department Care Team (Late Contact Info) Description 07/20/2023 Orders Only [facility] [address] [place] [phone] Provider, MD Estelle Social History Tobacco Use [...] Encounters Date Type Department Care Team (Late Contact Info) Description 01/13/2025 1:00 PM EDT Nutrition [facility] [address] [place] [phone] [place], [place] [phone] 03/16/2025 10:30 AM EDT Office Visit [facility] [address] [place] [address] Yolanda Aaron MD [address] [place], [place] [phone] documented as of this encounter Procedures Procedure Name Priority Date/Time Associated Diagnosis Comments HM PAP/HPV Routine 02/12/2022 documented in this encounter Results * Pap Smear (02/12/2022) us Historical Provider HEALTH MAINTENANCE Final Result documented in this encounter Visit Diagnoses Not on filedocumented in this encounter Additional Health Concerns Assessment Noted Time PHQ-9 Depression Total Score: 10 06/08/2 023 3:33 PM EDT documented as of this encounter Care Teams Social Worker Relationship Specialty Start Date End Date Yolanda Aaron MD [address] [place] [address] PCP - General Family Medicine 08/16/18 Cris Cabrera, RN [address] [place] [address] Mobile Device EngineerAsphalt Heater Operator 04/25/24 08/03/24 documented as of this encounter
--- OUTSIDE RECORDS SUMMARY | 2025-01-05 17:27 | XMS_ITS | Encounter Summary ---
Author Organization [employer] Address [address] [facility] [address] [place] [address] Care Team Providers Care Tight Cooper Name Role Phone Yolanda Aaron MD Primary Care Provider + Cris Cabrera RN Unavailable [phone] Encounter Details Date Type Department Care Team (Late Contact Info) Description 04/20/2023 Abstract [facility] [address] [place] [address] Yolanda Aaron MD [address] [place] [address] Social History Tobacco Use Types Packs/Day Years [...] Upcoming Encounters Date Type Department Care Team ([facility] Contact Info) Description 01/13/2025 1:00 PM EDT Nutrition [facility] [address] [place], [place] [phone] Natalee Tamez [address] [place], [place] [phone] 03/16/2025 10:30 AM EDT Office Visit [facility] [address] [place] [address] Yolanda Aaron MD [address] [place], [place] [phone] documented as of this encounter Visit Diagnoses Not on filedocumented in this encounter Additional Health Concerns Assessment Noted Time PHQ-9 Depression Total Score: 13 023 2:39 PM EDT documented as of this encounter Care Teams Tight Cooper Relationship Specialty Start Date End Date Yolanda Aaron MD [address] [place] [phone] PCP - General Family Medicine 08/16/18 Cris Cabrera RN [address] [place] [phone] Membership Sales AdvisorProduction Team Member 04/25/24 08/03/24 documented as of this encounter
== END 2025-01-05 13:48 | disposition home or self-care (01) ==
LOC: HO.MAMMO 13:47
PROVIDERS: PCP Internal Medicine; Visit Provider Internal Medicine
DX: Z12.31 Encounter for screening mammogram for malignant neoplasm of breast (principal)
CPT/HCPCS: 77063; 77067

== ENCOUNTER → 2025-01-05 14:00 | Outpatient (BNV) | payer MEDICAID, SELFPAY | PROVIDERS: PCP Internal Medicine; Visit Provider Internal Medicine | DX: Z12.31 Encounter for screening mammogram for malignant neoplasm of breast (principal) | CPT/HCPCS: 77063; 77067 ==

== ENCOUNTER → 2025-01-23 20:30 | Outpatient (BNV) | payer MEDICAID, SELFPAY | PROVIDERS: PCP Internal Medicine; Visit Provider Psychiatry & Neurology Neurology | DX: G47.33 Obstructive sleep apnea (adult) (pediatric) (principal) | CPT/HCPCS: 95811 ==

== ENCOUNTER → 2025-01-23 20:30 | Outpatient (REF) | payer MEDICAID, SELFPAY ==
--- OUTSIDE RECORDS SUMMARY | 2025-01-23 22:31 | XMS_ITS | Encounter Summary ---
Author Organization [employer] Address [address] [address] [place] [address] Care Team Providers Care Critical Power Technician Name Role Phone Yolanda Aaron MD Primary Care Provider + Cris Cabrera RN Unavailable [phone] Encounter Details Date Type Department Care Team (Late st Contact Info) Description 08/05/2023 Abstract [facility] [address] [place], [place] [phone] Yolanda Aaron MD [address] [place] [address] Social History Tobacco Use Types Packs/Day Years [...] Care Team (Late st Contact Info) Description 03/16/2025 10:30 AM EDT Office Visit [facility] [address] [place] [address] Yolanda Aaron MD [address] [place] [phone] documented as of this encounter Visit Diagnoses Not on filedocumented in this encounter Additional Health Concerns Assessment Noted Time PHQ-9 Depression Total Score: 023 3:33 PM EDT documented as of this encounter Care Teams Critical Power Technician Relationship Specialty Start Date End Date Yolanda Aaron MD [address] [place] [address] PCP - General Family Medicine 08/16/18 Cris Cabrera RN [address] [place] [phone] Behavior AnalystMission Systems Engineer 04/25/24 08/03/24 documented as of this encounter
--- OUTSIDE RECORDS SUMMARY | 2025-01-23 22:31 | XMS_ITS | Encounter Summary ---
Author Organization [employer] Address [address] [place] [address] Care Team Providers Care Reading Interventionist Name Role Phone Yolanda Aaron MD Primary Care Provider + Cris Cabrera RN Unavailable [phone] Encounter Details Date Type Department Care Team (Late Contact Info) Description 04/20/2023 Abstract [facility] [address] [place] [phone] Yolanda Aaron MD [address] [place], [place] [phone] Social History Tobacco Use Types Packs/Day Years [...] Upcoming Encounters Date Type Department Care Team ([facility] Contact Info) Description 03/16/2025 10:30 AM EDT Office Visit [facility] [address] [place] [phone] Yolanda Aaron MD [address] [place] [address] documented as of this encounter Visit Diagnoses Not on filedocumented in this encounter Additional Health Concerns Assessment Noted Time PHQ-9 Depression Total Score: 13 023 2:39 PM EDT documented as of this encounter Care Teams Reading Interventionist Relationship Specialty Start Date End Date Yolanda Aaron MD [address] [place] [address] PCP - General Family Medicine 08/16/18 Cris Cabrera RN [address] [place] [phone] Licensed Real Estate BrokerHome Lending Officer 04/25/24 08/03/24 documented as of this encounter
--- OUTSIDE RECORDS SUMMARY | 2025-01-23 22:31 | XMS_ITS | Encounter Summary ---
Author Organization [employer] Address [address] [place] [address] Care Team Providers Care Sharepoint Architect Name Role Phone Yolanda Aaron MD Primary Care Provider + Cris Cabrera RN Unavailable [phone] Encounter Details Date Type Department Care Team (Late Contact Info) Description 07/20/2023 Orders Only [facility] [address] [place] [phone] Provider, MD Estelle Social History Tobacco Use [...] Department Care Team (Late Contact Info) Description 03/16/2025 10:30 AM EDT Office Visit [facility] [address] [place] [phone] Yolanda Aaron MD [address] [place] [address] documented as of this encounter Procedures Procedure Name Priority Date/Time Associated Diagnosis Comments HM PAP/HPV Routine 02/12/2022 documented in this encounter Results * Hm Pap Smear (02/12/2022) us Historical Provider HEALTH MAINTENANCE Final Result documented in this encounter Visit Diagnoses Not on filedocumented in this encounter Additional Health Concerns Assessment Noted Time PHQ-9 Depression Total Score: 10 023 3:33 PM EDT documented as of this encounter Care Teams Sharepoint Architect Relationship Specialty Start Date End Date Yolanda Aaron MD [address] [place] [address] PCP - General Family Medicine 08/16/18 Cris Cabrera RN [address] [place] [address] Digital Business AnalystInformation Systems Architect 04/25/24 08/03/24 documented as of this encounter
--- OUTSIDE RECORDS SUMMARY | 2025-01-23 22:31 | XMS_ITS | Clinical Summary ---
Author Organization [employer] Address [address] [place] [address] Care Team Providers Care Manager Employee Benefits Name Role Phone Yolanda Aaron MD Primary Care Provider + Allergies No known active allergies Medications * This document contains information received from the source organization and may not represent a complete record from that organization. Calcium Carb-Cholecalc iferol 500-10 MG-MCG tablet Take 1 tablet by mouth in the morning and at bedtime. 08/07/20 22 Active ergocalciferol (Vitamin D2) 1.25 MG (52248 UT) capsule TAKE 1 CAPSULE BY MOUTH [...] day. 135 tablet 3 03/10/20 24 Active QUEtiapine (SEROquel) 100 MG tablet Take 1 tablet (100 mg) by mouth at bedtime. 90 tablet 3 10/20/20 24 Active senna-docusate sodium (Senokot-S) 8.6-50 MG tablet Take 1 tablet by mouth Once per day. 30 tablet 10/20/20 24 025 Active emtricitabine- tenofovir DF (Truvada) 200-300 MG tablet TAKE 1 TABLET BY MOUTH EVERY MORNING 30 tablet 2 11/30/19 25 Active fluticasone (Flonase) 50 MCG/ACT nasal spray USE 1 SPRAY IN EACH NOSTRIL ONCE DAILY 48 g 01/12/20 25 Active fluticasone (Flonase) 50 MCG/ACT nasal spray Administer 1 spray into each nostril Once per day. 16 g 2 10/20/20 24 025 Discontinued Active Problems Problem Noted [...] referred to AUD program. Fu closely with customer care team coach Hep B up to date Varicose [...] be referred to [facility] for Support and Recovery program. She declines [...] can drop of att he front office clerk and request a referral at [facility] Counseled [...] 500-700s, she has been reluctant to continue terminologist anticoagulation. F yearly with hematology Re consutl [...] and do that instead. She should call [facility] and/or consult her PCP with any [...] close fu with mental health provider and customer care team coach Counseled to cut down etoh use [...] Plan (12/03/2022 11:27 AM EST): FU by URBAN PLANNING PROFESSOR. Pat for PAP and pelvic US Coming [...] organization. Date Type Department Care Team Description 01/11/[address] [facility] [address] [place] [address] Yolanda Aaron MD 01/06/2025 Population Health Risk Score [facility] Department [address] [phone] Provider, Population Health Generic 01/05/[address] [facility] [address] [facility] [place] [address] Yolanda Aaron MD 12/21/2024 9:00 AM EST Office Visit [facility] [address] [facility] [place] [address] Yolanda Aaron MD Erosive osteoarthritis of hands, bilateral (Primary Dx); Major depressive disorder with psychotic features (CMS/HCC); Tremor of both hands; Hyperglycemia; Slow transit constipation; Class 1 obesity due to excess calories with serious comorbidity and body mass index (BMI) of 33.0 to 33.9 in adult; Dietary counseling; Exercise counseling 12/21/2024 Travel 12/15/[address] [address] Yolanda Aaron MD Chart prep 12/13/2024 Orders Only GENERIC EXTERNAL DATA DEPARTMENT Provider, Generic External Data 12/13/[address] [address] Yolanda Aaron MD ER Follow-up 12/08/2024 Orders Only GENERIC EXTERNAL DATA DEPARTMENT Provider, Generic External Data 12/08/[address] [address] Yolanda Aaron MD CRITICAL RESULT 11/30/[address] [address] Yolanda Aaron MD from Last 3 Months Immunizations Name Administration [...] Description 03/16/2025 10:30 AM EDT Office [address] [facility] [address] [place] [address] Yolanda Aaron MD [address] [place] [address] Health Maintenance Due Date Last Done Comments [...] 2024 Depression Monitoring (PHQ-9) 07/07/2024 01/05/2024, 01/05/2024 Depression Screening 01/04/2025 01/05/2024, 01/05/20 24 SDOH Screening 04/04/2025 04/04/2024 Tobacco Screening 12/21/2025 12/21/2024 Mammogram 01/05/2026 01/05/2025, 03/0 04/2024, 12/25/2022, Additional history exists Cervical Cancer Screening 02/12/2027 HPV/Cotest 02/12/2027 02/12/2022, [...] Procedure Name Priority Date/Time Associated Diagnosis Comments BI MAMMOGRAM SCREENING TOMOSYNTHESIS BILATERAL Routine 01/05/2025 2:00 PM EDT VITAMIN D 25-OH (D2 AND D3) Routine [...] VAGINOSIS PANEL Routine 12/08/2024 12:00 AM EST ZZZ HISTORICAL HPV E6/E7 RFLX XENIA 16 18/45 Routine 02/12/2022 3:42 PM EDT HM PAP/HPV Routine 02/12/2022 from Last 3 Months or Most Recently Relevant to Health Maintenance Results * BI Mammogram Screening Tomosynthesis Bilateral (01/05/2025 2:00 PM EDT) Anatomical Region Laterality Modality Breast Bilateral Mammography 01/05/2025 2:00 PM EDT Narrative 01/14/2025 10:59 AM EDT ? [facility] [place] ? [address] ?[place] [address] ?[phone] ? Mammography Report ? Signed ? Patient: Nisha Brown ?MR# ?? : [id number] ? : 1985 ?Acct:[id number] ? Age/Sex: 39 / F ?ADM Date: 01/05/25 ? Loc: HO.MAMMO ? Attending Dr: Yolanda Aaron MD ? Ordering Physician: Yolanda Aaron MD ?Results: 2Be ?? nign Findings ? Date of Service: 01/05/25 ?Follow Up: 1 Year From Orig ?? inal Mammogram ? Procedure(s): MM tomosynthesis screening BI ?? Accession Number(s): [id number] ? cc: Yolanda Aaron MD ? EXAMINATION: ?? MM SCREENING DIGITAL BREAST TOMOSYNTHESIS, BILATERAL ? CLINICAL INFORMATION: ? Screening. Asymptomatic. ? COMPARISON: ?? Mammography: Comparison is made with available priors ? TECHNIQUE: ?? Digital breast mammography with tomosynthesis is performed in both the ?? craniocaudal and mediolateral oblique views along with computer-aided ?? detection (CAD). ? FINDINGS: ?? The breasts are heterogeneously dense, which may obscure small masses ?? (ACR BI-RADS breast composition Category c). ?? Bilateral marker clips. ?? There are no significant masses, abnormal calcifications, or other ?? abnormalities. ? MM/MM tomosynthesis screening BI ?? IMPRESSION: [...] due date for their next mammogram. ? Electronically signed by: ??Viky Coronado DO ??01/14/2025 10:57 AM EDT ? Dictated By: ?Viky Coronado DO ? Signed By: ?<Electronically signed by Viky Tyminski, DO in OV> ? 01/14/25 1057 ? DD/ 1400 ? TD/TT: 01/05/25 1415 ? Oracle Adf Developer: ? Procedure Note Ade, Image - 01/14/2025 [facility] [address] [place] [address] [place] [address] Mammography Report Signed Patient: Kiki Brown# : [id number] : 1985Acct:[id number] Age/Sex: 39 / FADM Date: 01/05/25 Loc: SAQIBO Attending Dr: Yolanda Aaron MD Ordering Physician: Yolanda Aaronesults: 2Be nign Findings Date of Service: 01/05/25Follow Up: 1 Year From Orig inal Mammogram Procedure(s): MM tomosynthesis screening BI Accession Number(s): [id number] cc: Yolanda Aaron MD EXAMINATION: MM SCREENING DIGITAL BREAST TOMOSYNTHESIS, BILATERAL CLINICAL INFORMATION: Screening. Asymptomatic. COMPARISON: Mammography: Comparison is made with available priors TECHNIQUE: Digital breast mammography with tomosynthesis is performed in both the craniocaudal and mediolateral oblique views along with computer-aided detection (CAD). FINDINGS: The breasts are heterogeneously dense, which may obscure small masses (ACR BI-RADS breast composition Category c). Bilateral marker clips. There are no significant masses, abnormal calcifications, or other abnormalities. MM/MM tomosynthesis screening BI IMPRESSION: No mammographic evidence of malignancy. ASSESSMENT: BI-RADS BI-RADS 2 - Benign Findings RECOMMENDATION: Routine annual mammography screening. 1 year F/U This examination should not preclude the clinical evaluation of a suspicious palpable abnormality. This patient's information was entered into a reminder system with a target due date for their next mammogram. Electronically signed by: Viky Coronado DO 01/14/2025 10:57 AM EDT Dictated By: Viky Coronado DO Signed By: <Electronically signed by Viky Coronado DO in OV> 01/14/25 1057 DD/ 1400 TD/TT: 01/05/25 1415 Oracle Adf Developer: us Yolanda Aaron MD IMG BI PROCEDURES Edited Result - Final * Syphilis Screen (12/13/2024 11:02 AM EST) Syphilis Screen Nonreactive Nonreactive [facility] 12/13/2024 11:0 2 AM EST 12/13/2024 1:04 PM EST us Generic External Data Provider LAB BLOOD ORDERAB LES Final Result [facility] [address] [place] [phone] * (ABNORMAL) VITAMIN D 25-OH (D2 AND D3) (12/13/2024 11:02 AM EST) Vitamin D, 25-OH, D2 <4 ng/mL [facility] Comment:This test was develo ped and its analytical performancecharacteristics have been determined by [employer] [place], [place]. It hasnot been cleared or approved by the U.S. Food and DrugAdministration. This assay has been validated pursuantto the CLIA regulations and is used for clinicalpurposes.THIS TEST WAS PERFORMED AT:[employer] [id number] [place] [id number] WARREN MD,PHD Vitamin D, 25-OH, D3 8 ng/mL [facility] Comment:This test was develo ped and its analytical performancecharacteristics have been determined by [employer] [place], [place]. It hasnot been cleared or approved by the U.S. Food and DrugAdministration. This assay has been validated pursuantto the CLIA regulations and is used for clinicalpurposes. Vitamin D, 25-OH, Total 8(A) 30 - 100 ng/mL [facility] Comment:Vitamin D, 25-Hydrox y reports concentrations [...] = 30 ng/mL.For additional information, please refer tohttp://education.[employer]/faq/AHB513(This link is being provided for informational/educational purposes only.) 12/13/2024 11:0 2 AM EST 12/13/2024 1:04 PM EST us Generic External Data Provider LAB BLOOD ORDERAB LES Final Result Performing Organization Address City/State/[facility] Co de Phone Number [facility] [address] [place] [phone] * Hepatitis C Ab (12/13/2024 11:02 AM EST) Pathologist [facility] Hepatitis C Antibody Nonreactive Nonreactive [facility] Comment:Antibodies to HCV no t detected; does not exclude early acuteHCV infection. 12/13/2024 11:0 2 AM EST 12/13/2024 1:04 PM EST Generic External Data Provider LAB BLOOD ORDERAB LES Final Result Performing Organization Address [facility] Co de Phone Number [facility] [address] [place] [phone] * Hepatitis B surface antigen, EIA (12/13/2024 11:02 AM EST) Pathologist [facility] Hepatitis B Surface Ag Negative Negative [facility] 12/13/2024 11:0 2 AM EST 12/13/2024 1:04 PM EST Generic External Data Provider LAB BLOOD ORDERAB LES Final Result Performing Organization Address [facility] Phone Number [facility] [address] [place] [phone] * HIV-1/2 Antigen and Antibodies, Fourth Generation, with Reflexes (12/13/2024 11:02 AM EST) Pathologist [facility] HIV AB/AG Nonreactive Nonreactive [facility] Comment:HIV-1 p24 Ag and/or HIV-1/HIV-2 Ab not detected.A test result that is nonreactive does not exclude thepossibility of exposure to or infection with HIV-1 and/orHIV-2. Nonreactive results in this assay for individualswith prior exposure to HIV-1 and/or HIV-2 may be due toantigen and antibody levels that are below the limit ofdetection of this assay.The [employer] HIV Ag/Ab Combo assay result andsupplemental assay results should be interpreted inconjunction with the patient's clinical presentation,history and other laboratory results. If the results areinconsistent with clinical evidence, additional testing issuggested to confirm the result. 12/13/2024 11:0 2 AM EST 12/13/2024 1:04 PM EST us Generic External Data Provider LAB BLOOD ORDERAB LES Final Result Performing Organization Address [facility] Co de Phone Number [facility] [address] [place] [phone] * (ABNORMAL) Basic Metabolic Panel (12/13/2024 11:02 AM EST) Sodium 142 135 - 145 mmol/L [facility] Potassium 3.9 3.3 - 5.1 mmol/L [facility] Chloride 109(H) 96 - 108 mmol/L [facility] Carbon Dioxide 26 22 - 29 mmol/L [facility] Anion Gap 11(L) 12 - 20 [facility] Urea Nitrogen (BUN) 13 9 - 16 mg/dL [facility] Creatinine, Serum 0.74 0.5 - 1.4 mg/dL [facility] Estimated Glomerular Filt Rate >60 [facility] Comment:Chronic Kidney Disea se: Estimated GFR < 60 mL/min/1.45f2Tclvwh Kidney Disease: Estimated GFR < 15 mL/min/1.73m2 Glucose 68 60 - 115 mg/dL [facility] Calcium 9.4 8.4 - 10.2 mg/dL [facility] Blood Venous blood specimen / Unknown 12/13/2024 11:02 AM EST 12/13/2024 1:04 PM EST us Yolanda Aaron MD LAB BLOOD ORDERABLES Fin al Result Performing Organization Address [facility] Co de Phone Number [facility] [address] [place] [phone] * Hemoglobin A1c (12/08/2024 11:17 AM EST) Hemoglobin A1c 5.5 <6.0 % [facility] Comment:Hemoglobin A1C Refer ence Range Adults: 4.8 - 6.0 % Non diabetic: < 6.0 % Goal: < 7.0 %Additional Action Suggested: > 8.0 %Note: Hemoglobin A1c results are invalid for patients with abnormal amounts of HbF. Blood transfusions may impact the HbA1c concentration in the patient sample. Estimated Average Glucose 111 mg/dL [facility] Comment:eAG = Estimated ave rage glucose which is %A1C expressed asaverage glucose, using the formula of the A9T-QiwlnuyVboqoju Glucose study (ADAG), Diabetes Care, Vol.31,#8,2007 Blood Venous blood specimen / Unknown 12/08/2024 11:17 AM EST 12/08/2024 12:51 PM EST us Yolanda Aaron MD LAB BLOOD ORDERABLES Fin al Result Performing Organization Address City/[facility]/ZIP Co de Phone Number [facility] [address] [place] [phone] * Cancelled Serology (12/08/2024 12:00 AM EST) Pathologist [facility] Cancelled Serology SEE NOTE [facility] Comment:THE FOLLOWING TESTS WERE CANCELLED: Anti-HCV, HIV Ab/Ag,HBsAg, and Syphilis ScreenREASON: No specimen received 12/08/2024 12/08/2024 us Generic External Data Provider HISTORICAL/NON OR DERABLE LABS Final Result Performing Organization Address [facility] Co de Phone Number [facility] [address] [place] [phone] * (ABNORMAL) Bacterial Vaginosis (12/08/2024 12:00 AM EST) TRICHOMONAS VAGINALIS DETECTION BY PCR NOT DETECTED Not Detect [facility] BACTERIAL VAGINOSIS DETECTION BY PCR NEGATIVE Negative [facility] Comment:The BV organism targ ets of [...] GROUP DETECTION BY PCR DETECTED(A) Not Detect [facility] Serenity glab krusei PCR NOT DETECTED Not Detect [facility] 12/08/2024 12/08/2024 us Generic External Data Provider LAB MICROBIOLOGY - GENERAL ORDERABLES Final Result [facility] [address] [place] [phone] * Chlamydia/N. Gonorrhoeae RNA, TMA, Urogenitial (12/08/2024 12:00 AM EST) CT PCR NOT DETECTED Not Detect. [facility] Comment:A not detected test result does [...] psychologicalconsequences. NG PCR NOT DETECTED Not Detect. [facility] Comment:A not detected test result does [...] adverse medical, social or psychologicalconsequences. 12/08/2024 12/08/2024 [facility] - 12/09/2024 1:59 PM EST Vaginal Generic External Data Provider LAB MICROBIOLOGY - GENERAL ORDERABLES Final Result Performing Organization Address [facility] Co de Phone Number [facility] [address] [place] [phone] * Culture, Urine, Routine (12/08/2024 12:00 AM EST) Urine Urine specimen obtained by clean catch procedure / Unknown 12/08/2024 12/08/2024 Comment:[facility] - 12/10/2024 9:49 AM EST Lactobacillus species Quant 50,000 to 100,000 cfu/mL Susc N/A Susceptibility not routinely performed on this isolate. Specimen Source: Urine clean catch Generic External Data Provider LAB MICROBIOLOGY - GENERAL ORDERABLES Final Result Performing Organization Address [facility] Co de Phone Number [facility] [address] [place] [phone] * HPV E6/E7 RFLX XENIA 16 18/45 (02/12/2022 3:42 PM EDT) Pathologist [facility] HPV mRNA E6/E7 rflx Not Detected Not Detected [facility] Comment: Methodology: Political Science Professor-Mediated Amplification This assay detects E6/E7 viral messenger RNA (mRNA) from 14 high-risk HPV types (16,18,31,33,35,39,45,51,52,56,58,59,66,68). The analytical performance characteristics of this assay have been determined by [employer]. The modifications have not been cleared or approved by the FDA. This assay has been validated pursuant to the CLIA regulations and is used for clinical purposes. For additional information, please refer to http://education.[employer]/faq/VMQ928t3 (This link if provided for information/ educational purposes only.) THIS TEST WAS PERFORMED AT: [employer] [address] [place] [address] [address] [place], [place] ??[phone] TREY MCELROY MD 02/12/2022 3:42 PM EDT Harmony Sheldon HISTORICAL/NON ORDERABLE LABS Fi nal Result [facility] [address] * Hm Pap Smear (02/12/2022) Historical Provider HEALTH MAINTENANCE Final Result from Last 3 Months or Most Recently Relevant to Health Maintenance Insurance [facility] C3 Care Teams Manager Employee Benefits Relationship Specialty Start Date End Date Yolanda Aaron MD [address] [place] [phone] PCP - General Family Medicine 08/16/18
--- OUTSIDE RECORDS SUMMARY | 2025-01-23 22:31 | XMS_ITS | Encounter Summary ---
Author Organization [employer] Address [address] [place] [address] Care Team Providers Care Director Index Name Role Phone Yolanda Aaron MD Primary Care Provider + Cris Cabrera RN Unavailable [phone] Encounter Details Date Type Department Care Team (Late st Contact Info) Description 12/24/2022 Orders Only [facility] [address] [place], [place] [phone] Yolanda Aaron MD [address] [place], [place] [phone] Social History Tobacco Use Types Packs/Day Years [...] Description 03/16/2025 10:30 AM EDT Office Visit [facility] [address] [place] [address] Yolanda Aaron MD [address] [place] [address] documented as of this encounter Visit Diagnoses Not on filedocumented in this encounter Additional Health Concerns Assessment Noted Time PHQ-9 Depression Total Score: 11 023 11:41 AM EST documented as of this encounter Care Teams Director Index Relationship Specialty Start Date End Date Yolanda Aaron MD [address] [place] [address] PCP - General Family Medicine 08/16/18 Cris Cabrera RN [address] [place] [id number] Head Baggage PorterBaling Press Operator 04/25/24 08/03/24 documented as of this encounter
== END ==
LOC: HO.SL 20:30
PROVIDERS: PCP Internal Medicine; Visit Provider Nurse Practitioner Family
DX: G47.33 Obstructive sleep apnea (adult) (pediatric) (principal); G47.34 Idiopathic sleep related nonobstructive alveolar hypoventilation
CPT/HCPCS: 95811

== ENCOUNTER 2025-03-15 14:42 | Outpatient (AMB) | payer MEDICAID, SELFPAY ==
[2025-03-15 14:43] VITALS: BP 118/80; PULSE 83; O2SAT 98; BMI 31.6
--- NOTE | 2025-03-15 14:43 | MHC.OFFVIS ---
Vital Signs 03/15/25 14:43 Height 5 ft 4 in Weight 184 lb BMI 31.6 BP 118/80 Blood Pressure Location Lt brachial Position Sitting Pulse 83 Pulse Oximetry (%) 98 Oxygen Delivery Method Room Air Intake Visit Reasons: slow transit Intake Note: Pt presents to the office today for slow transit. Patient cc: early satiety with bloating, acid reflux with burning sensation, and constipation. Denies any other GI issues. Dye House Worker Required: Yes Dye House Worker Name: [facility] Accompanied by: Daughter Allergies Penicillins Adverse Reaction (Verified 03/15/25 14:47) vaginal itching HPI Comments Details: This is a 38y.o F with PMH of who is here for elevated LFTs. Seen with windows security engineer. 07/15/23 Pt reports having intermittent RUQ pain that started around earlier this year associated with nausea. Used to drink etOH up to 4-5 nips of fireball and a 12 pack of beer in one day x 5 years. Has recently hard liqupr quit since her hospital visit earlier this year when she was told about liver inflammation. COntinues to consume 3-4 beers over the weekends still. Sometimes also smokes tobacco. No marijuana or IVDU. Pt also lost almost 30 lbs in the last 3 months after she cut down on drinking as well modified her diet. 09/09/23: Here for follow up for elevated LFTs. Work up done after last visit reviewed with the pt. Essentially consistent with elevated LFTs 2/2 etOH use. Pt reports that since last visit has cut down etOH intake to once a week - however still consumes 5-6 beers in that one session. Otherwise no abd pain, N,V, D. No changes in bowel habits. 03/15/25: Was lost to follow up. Has cut down drinking. Drinks 6 beers in 2-3 weeks compared to 6 beers daily. No more fireballs. LFTs better than before but still not completely normal. Pt herself reports constipation. Has 2-3 BMs per week assoc with bloating and abd discomfort. Takes stool softener which doesnt always help. Fam hx of colon cancer in father - dx at age 70s. Maternal aunt and mat grandma also from colon cancer. Laboratory Tests 12/08/24 12/08/24 01/24/25 11:17 23:33 09:20 AST 81 H 75 H 34 H ALT 101 H 106 H 50 H PFSH Medical History Encounter for screening examination for sexually transmitted disease Bacterial vaginosis Vaginal itching Fibroadenoma Obesity Vaginal discharge Vaginal odor Fracture of orbital floor, blow-out, right, closed Problematic vaginal discharge Mass of right breast Microcalcification of left breast on mammography Well woman exam with routine gynecological exam Pelvic pain Breast lump Abnormal Pap smear of cervix Pulmonary embolism Bilateral pulmonary embolism PE (pulmonary thromboembolism) DVT (deep venous thrombosis) Surgical History Hx of tubal ligation Hx of foot surgery Family History Maternal Aunt Breast cancer, Onset Age: 29 Colon cancer Brother Diabetes Sister Diabetes Maternal Aunt Metastasis from esophageal cancer Father Colon cancer Family/Other Colon cancer Social History Household Members: Children Housing: Apartment Are you a primary career development director to a significant other at home: No Do you presently have visiting nurse or other home services: No Alcohol intake: never Patient Tobacco Use Status: Current everyday Tobacco user Tobacco use type: Cigarette service: No Current occupational status: unemployed Gender identity: Female Female Reproductive History Menstrual Age of Menarche: 13 Review of Systems Const All systems reviewed & are unremarkable except as noted in HPI and below Physical Exam Vital Signs: Last Vital Signs Pulse 83 03/15/25 14:43 BP 118/80 03/15/25 14:43 Pulse Ox 98 03/15/25 14:43 Oxygen Delivery Method Room Air 03/15/25 14:43 BMI result Body Mass Index 31.6 No apparent distress Nonicteric Abdomen soft, nondistended Alert and oriented x3, normal gait Assessment & Plan Assessment & Plan (1) Alcohol use: Code(s): Z78.9 - Other specified health status Category: Social Hx (2) Elevated LFTs: Code(s): R79.89 - Other specified abnormal findings of blood chemistry Category: Medical (3) Chronic idiopathic constipation: Code(s): K59.04 - Chronic idiopathic constipation Category: Medical (4) Family history of colon cancer: Code(s): Z80.0 - Family history of malignant neoplasm of digestive organs Category: Medical Plan 1. 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 Again counseled on complete etOH cessation to avoid furhter progression of liver disease. She was also counseled on modificaiton of metabolic factors to avoid worsening of non-etOH steatohepatitis. Plan: - EtOH abstinence - Repeat MELD labs - Elastography 2. CIC Likely 2/2 lack of fiber and adequate hydration. Reviewed that stool softener not as effective and miralax may help more. Plan: - Add fiber supplementation - Encourage hydration - Elevate legs while having BM - Add miralax 3 times a week 3. Fam hx of CRC Given age of dx of CRC in father, will need a colo at 40 y.o. Further screening intervals will be routine. Follow up 3 months Orders: Orders Comprehensive Met. Panel 3 Months Z78.9 - Other specified health status Complete Blood Count no Diff 3 Months Z78.9 - Other specified health status Prothrombin Time INR 3 Months Z78.9 - Other specified health status US abdomen comp w elastography 03/15/25 R79.89 - Other specified abnormal findings of blood chemistry, Z78.9 - Other specified health status Medications: New psyllium husk (Daily Fiber) 1.04 grams (2 x 0.52 gram) PO BEDTIME 60 caps 3RF constipation 30 days polyethylene glycol 3350 (Miralax) 17 grams PO DAILY PRN 238 grams 0RF constipation 30 days Coding Level of Care Code Est Pt Level 4 (05474) Diagnoses Alcohol use Z78.9 Elevated LFTs R79.89 Chronic idiopathic constipation K59.04 Family history of colon cancer Z80.0
== END 2025-03-15 15:22 | disposition home or self-care (01) ==
LOC: HO.HGI 14:43
PROVIDERS: PCP Internal Medicine; Visit Provider Internal Medicine
DX: Z78.9 Other specified health status (principal); R79.89 Other specified abnormal findings of blood chemistry; K59.04 Chronic idiopathic constipation; Z80.0 Family history of malignant neoplasm of digestive organs
CPT/HCPCS: 99214

== ENCOUNTER → 2025-03-15 14:42 | Outpatient (BNVA) | payer MEDICAID, SELFPAY | PROVIDERS: PCP Internal Medicine; Visit Provider Internal Medicine | DX: K59.04 Chronic idiopathic constipation (principal); R79.89 Other specified abnormal findings of blood chemistry; Z78.9 Other specified health status; Z80.0 Family history of malignant neoplasm of digestive organs | CPT/HCPCS: 99212 ==

== ENCOUNTER 2025-03-29 14:20 | Outpatient (REF) | payer MEDICAID, SELFPAY ==
[2025-03-29 20:43] LABS: Bacterial Vaginosis PCR NEGATIVE (Negative); Candida Group PCR DETECTED (Not Detect); Candida glab krusei PCR NOT DETECTED (Not Detect); Trichomonas vaginalis PCR NOT DETECTED (Not Detect)
[2025-03-29 21:27] LABS: CT PCR NOT DETECTED (Not Detect.); NG PCR NOT DETECTED (Not Detect.)
== END 2025-03-29 14:21 | disposition home or self-care (01) ==
LOC: HO.LNP 14:20
PROVIDERS: PCP Internal Medicine; Visit Provider Advanced Practice Midwife
DX: N89.8 Other specified noninflammatory disorders of vagina (principal); N39.3 Stress incontinence (female) (male); Z72.51 High risk heterosexual behavior
CPT/HCPCS: 81002; 81025; 81515; 87086; 87088; 87186; 87491; 87591; 99212

== ENCOUNTER 2025-03-29 14:20 | Outpatient (AMB) | payer MEDICAID, SELFPAY ==
--- NOTE | 2025-03-29 14:21 | A.OFFVIS_ITS ---
Intake Visit Reasons: Vaginal burning Intake Note: Per patient vaginal burning, discharge, itching even when urinating. Had intercourse on Thursday, symptoms began on Thursday. Firearms Assembly Supervisor: Firearms Assembly Supervisor Present (Saira) Accompanied by: Self / Same As Patient Allergies Penicillins Adverse Reaction (Verified 03/29/25 14:25) vaginal itching HPI Comments Details: Patient is here today with lower pelvic cramping and discomfort she onset of symptoms of dysuria and frequency and low back since Thursday. She also reports vaginal itching and increased discharge. She denies any fever or chills. She reports has 2 intimate partners. Seen regularly for HIV testing at the [facility] in is planning to initiate prophylactic therapy for HIV prevention. Admits to stress incontinence. History of tubal ligation. [facility] Medical History UTI (urinary tract infection) Stress incontinence Encounter for screening examination for sexually transmitted disease Bacterial vaginosis Vaginal itching Fibroadenoma Obesity Vaginal discharge Vaginal odor Fracture of orbital floor, blow-out, right, closed Problematic vaginal discharge Mass of right breast Microcalcification of left breast on mammography Well woman exam with routine gynecological exam Pelvic pain Breast lump Abnormal Pap smear of cervix Pulmonary embolism Bilateral pulmonary embolism PE (pulmonary thromboembolism) DVT (deep venous thrombosis) Surgical History Hx of tubal ligation Hx of foot surgery Family History Maternal Aunt Breast cancer, Onset Age: 29 Colon cancer Brother Diabetes Sister Diabetes Maternal Aunt Metastasis from esophageal cancer Father Colon cancer Family/Other Colon cancer Social History Household Members: Children Housing: Apartment Are you a primary skin care instructor to a significant other at home: No Do you presently have visiting nurse or other home services: No Alcohol intake: never Patient Tobacco Use Status: Current everyday Tobacco user Tobacco use type: Cigarette service: No Current occupational status: unemployed Gender identity: Female Female Reproductive History Menstrual Age of Menarche: 13 Review of Systems Const All systems reviewed & are unremarkable except as noted in HPI and below Physical Exam Const General: cooperative, healthy appearing and no acute distress Orientation/consciousness: patient oriented x3 GI Inspection: Yes normal to inspection Palpation (GI): Soft to palpation and Other GI palpation findings present (Nontender) Rectal Exam - Female: visual inspection normal General: Yes bladder normal to palpation External Female Exam: normal appearance of the urethra Speculum Exam - Vagina: normal appearance of the vagina, normal palpation and normal vaginal discharge (Increased white discharge) Speculum Exam - Cervix: normal appearance of the cervix and normal palpation Bimanual exam- vagina & uterus: normal bimanual exam, normal palpation, uterine size normal, bladder normal to palpation, normal palpation, uterine shape normal, non-tender and other (Lower pelvic suprapubic tenderness) Bimanual Exam- Adnexa, other: normal adnexae Neuro General: patient oriented x3 Assessment & Plan Assessment & Plan (1) UTI (urinary tract infection): Code(s): N39.0 - Urinary tract infection, site not specified Category: Medical Qualifiers: Urinary tract infection type: acute cystitis Plan: Rx for Macrobid sent in, advised to complete all meds await culture results for final plan. Increase p.o. fluids water mostly avoid bladder irritants. Reviewed warning signs and to report to the ED if fever over 100.4, chills, flu- like symptoms, lightheadedness or dizziness. Rx for Diflucan sent in, repeat 2nd dose at end of antibiotic therapy. The patient expressed understanding and agreement with the plan of care. All of her questions and concerns were addressed to the best of my ability. (2) High risk sexual behavior: Code(s): Z72.51 - High risk heterosexual behavior Qualifiers: High risk sexual behavior type: unspecified Qualified Code(s): Z72.51 - High risk heterosexual behavior (3) Stress incontinence: Code(s): N39.3 - Stress incontinence (female) (male) Category: Medical Plan: Referral placed for pelvic floor physical therapy. The patient expressed understanding and agreement with the plan of care. All of her questions and concerns were addressed to the best of my ability. Plan Advised prevention techniques with condoms and prophylactic medication through the [facility]. BV GC and chlamydia cultures obtained await results for plan of care. Report any HIV status that is positive for increased surveillance purposes. Information provided Gardasil vaccination, booklet given advised to call for nurse appointment if decides to start the vaccination series. This note is constructed using voice recognition software. While every effort has been made to ensure accuracy, water treatment specialist errors may have been included. Total time I personally spent on visit and management today: ?40 minutes. Time spent included review of pertinent office notes in the electronic health record; review of laboratory and imaging results; review of personal family medical history; performing physical exam; discussing diagnosis and plan of care with the patient; documenting the encounter in the EMR. Orders: Referrals Pelvic Fashion Photographer Referral N39.3 - Stress incontinence (female) (male) Medications: New fluconazole may repeat dose in one week if symptoms do not resolve 150 mg PO ONCE 1 day 2 tabs 0RF personal nitrofurantoin monohyd/m-cryst 100 mg (Macrobid) must administer with a meal/food 100 mg PO BID 5 days 10 caps 0RF UTI Coding Level of Care Code Est Pt Level 4 (49235) Diagnoses UTI (urinary tract infection) N39.0 Urinary tract infection type: acute cystitis High risk sexual behavior, unspecified type Z72.51 High risk sexual behavior type: unspecified Stress incontinence N39.3
--- OUTSIDE RECORDS SUMMARY | 2025-03-29 14:23 | XMS_ITS | Encounter Summary ---
Author Organization [employer] Address [address] [facility] [address] [place] [address] Care Team Providers Care Foam Cutting Supervisor Name Role Phone Yolanda Aaron MD Primary Care Provider + Cris Cabrera RN Unavailable [phone] Encounter Details Date Type Department Care Team (Late st Contact Info) Description 12/01/2022 Abstract [facility] [address] [place], [place] [phone] Yolanda Aaron MD [address] [place], [place] [phone] Social History Tobacco Use Types Packs/Day Years [...] as of this encounter Plan of Treatment Not on file documented as of this encounter Visit Diagnoses Not on filedocumented in this encounter Additional Health Concerns Assessment Noted Time PHQ-9 Depression Total Score: 11 023 11:41 AM EST documented as of this encounter Care Teams Foam Cutting Supervisor Relationship Specialty Start Date End Date Yolanda Aaron MD [address] [place] [address] PCP - General Family Medicine 08/16/18 Cris Cabrera RN [address] [place] [address] Yard BrakemanNursing Informatics Clinical Analyst 04/25/24 08/03/24 documented as of this encounter
== END 2025-03-29 16:13 | disposition home or self-care (01) ==
LOC: HO.HWS 14:20
PROVIDERS: PCP Internal Medicine; Visit Provider Advanced Practice Midwife
DX: N39.0 Urinary tract infection, site not specified (principal); Z72.51 High risk heterosexual behavior; N39.3 Stress incontinence (female) (male); Z32.02 Encounter for pregnancy test, result negative
CPT/HCPCS: 99214

== ENCOUNTER 2025-03-30 09:14 | Outpatient (REF) | payer MEDICAID, SELFPAY ==
--- OUTSIDE RECORDS SUMMARY | 2025-03-30 09:59 | XMS_ITS | Encounter Summary ---
Author Organization [employer] Address [address] [place] [address] Care Team Providers Care Manager Instrumentation Name Role Phone Yolanda Aaron MD Primary Care Provider + Encounter Details Date Type Department Care Team (Late st Contact Info) Description 03/29/2025 Orders Only GENERIC EXTERNAL DATA DEPARTMENT Provider, Generic External Data Social History Tobacco Use Types Packs/Day Years Used Date Smoking Tobacco: Some Days Cigarettes Passive Smoke Exposure: Current Smokeless Tobacco: Never Alcohol Use Standard Drinks/Week Comments Yes 0 (1 standard drink = 0.6 oz pur e alcohol) oca Depression Answer Date Recorded Patient Health Questionnaire-9 Score 22 03/16/2025 Patient Health Questionnaire-9 Score 22 03/16/2025 Last PHQ-9: Questionnaire Data Not on file 0 03/16/2025 Housing Stability Answer Date Recorded What is [...] Answer Date Recorded Patient Health Questionnaire-2 Score 6 03/16/2025 Internet Access Answer Date Recorded Internet Access [...] on file documented as of this encounter Procedures Procedure Name Priority Date/Time Associated Diagnosis Comments BACTERIAL VAGINOSIS PANEL Routine 03/29/2025 2:20 PM EDT CHLAMYDIA/N. GONORRHOEAE RNA, TMA, UROGENITAL Routine 03/29/2025 2:20 PM EDT documented in this encounter Results * Chlamydia/N. Gonorrhoeae RNA, TMA, Urogenitial (03/29/2025 2:20 PM EDT) CT PCR NOT DETECTED Not Detect. [facility] Comment:A not detected test result [...] psychologicalconsequences. NG PCR NOT DETECTED Not Detect. [facility] Comment:A not detected test result [...] lead to adverse medical, social or psychologicalconsequences. 03/29/2025 2:20 PM EDT 03/29/2025 4:39 PM EDT Narrative [facility] - 03/29/2025 9:27 PM EDT Vaginal us Generic External Data Provider LAB MICROBIOLOGY - GENERAL ORDERABLES Final Result [facility] [address] [place] [phone] * (ABNORMAL) Bacterial Vaginosis (03/29/2025 2:20 PM EDT) TRICHOMONAS VAGINALIS DETECTION BY PCR NOT DETECTED Not Detect [facility] BACTERIAL VAGINOSIS DETECTION BY PCR NEGATIVE Negative [facility] Comment:The BV organism targ ets [...] GROUP DETECTION BY PCR DETECTED(A) Not Detect [facility] Serenity glab krusei PCR NOT DETECTED Not Detect [facility] 03/29/2025 2:20 PM EDT 03/29/2025 4:39 PM EDT us Generic External Data Provider LAB MICROBIOLOGY - GENERAL ORDERABLES Final Result [facility] [address] [place] [phone] documented in this encounter Visit Diagnoses Not on filedocumented in this encounter Additional Health Concerns Assessment Noted Time PHQ-9 Depression Total Score: 22 025 11:10 AM EDT documented as of this encounter Care Teams Manager Instrumentation Relationship Specialty Start Date End Date Yolanda Aaron MD [address] [place] [address] PCP - General Family Medicine 08/16/18 documented as of this encounter
[2025-03-30 12:07] LABS: Estimated Average Glucose 111 mg/dL; Hemoglobin A1c % 5.5 % (<6.0); Total Hemoglobin (HGBA1C) 3623.0787 umol/L
[2025-03-30 12:34] LABS: Syphilis Screen Nonreactive (Nonreactive)
[2025-03-30 12:36] LABS: Alanine Aminotransferase 89 U/L (0-31); Albumin Level 4.1 g/dL (3.5-5.0); Alkaline Phosphatase 70 U/L (39-117); Anion Gap 9 (12-20); Aspartate Amino Transferase 68 U/L (5-31); Bilirubin Direct 0.2 mg/dL (0.0-0.5); Bilirubin Total 0.5 mg/dL (0.0-1.0); Blood Urea Nitrogen 15 mg/dL (9-16); Calcium 9.4 mg/dL (8.4-10.2); Carbon Dioxide 26 mmol/L (22-29); Chloride 108 mmol/L (96-108); Estimated Glomerular Filt Rate > 60; Glucose Random 91 mg/dL (60-115); Potassium 4.2 mmol/L (3.3-5.1); Sodium 139 mmol/L (135-145); TSH reflex Free T4 0.96 uIU/mL (0.32-4.0); Total Protein 7.3 g/dL (6.5-8.0); Vitamin D 25-OH Total 33.5 ng/mL (>30)
[2025-03-30 12:49] LABS: HBS Num1 120.24 mIU/mL (0-7.99); HBc Num1 0.11 S/CO (0.00-0.79); HBsAGNum1 0.35 S/CO (0.00-0.99); HIV AB/AG Nonreactive (Nonreactive); HIV Num 1 0.19 S/CO (0.00-0.99); Hepatitis A Antibody IgM 0.15 Index (0-0.79); Hepatitis B Core Antibody Nonreactive (Nonreactive); Hepatitis B Surface Antigen Negative (Negative); ~HepC Num1 0.15 S/CO (0.00-0.79); ~Hepatitis A Antibody IgM Nonreactive (Nonreactive); ~Hepatitis B Surface Antibody REACTIVE (Nonreactive); ~Hepatitis C Antibody Nonreactive (Nonreactive)
== END 2025-03-30 09:15 | disposition home or self-care (01) ==
LOC: HO.HHCL 09:14
PROVIDERS: Visit Provider Internal Medicine
DX: K70.30 Alcoholic cirrhosis of liver without ascites (principal); Z70.8 Other sex counseling; E66.811 Obesity, class 1; E66.09 Other obesity due to excess calories; Z68.33 Body mass index [BMI] 33.0-33.9, adult; E55.9 Vitamin D deficiency, unspecified; R73.9 Hyperglycemia, unspecified
CPT/HCPCS: 36415; 80048; 80076; 82306; 83036; 84443; 86704; 86706; 86709; 86780; 86803; 87340; 87389

== ENCOUNTER 2025-05-10 07:44 | Outpatient (REF) | payer MEDICAID, SELFPAY ==
--- NOTE | ~2025-05-10 | US_ITS ---
EXAMINATION: US ABDOMEN COMPLETE WITH LIVER ELASTOGRAPHY HISTORY: Z78.9 - Other specified health status TECHNIQUE: Real-time grayscale ultrasound imaging of the abdomen was performed and images were reviewed. COMPARISON: Correlation is made with a CT of the abdomen without contrast dated 12/05/2022. FINDINGS: Liver: The right lobe of the liver measures 17.0 cm in size. The left lobe of the liver measures 10.4 cm in size. There is a mildly nodular liver contour, suggestive of cirrhosis. The liver demonstrates increased echotexture, consistent with steatosis. There is focal fatty sparing adjacent to the gallbladder. No focal mass or intrahepatic biliary ductal dilatation is identified. There is normal hepatopedal flow in the portal vein. Ultrasound elastography of the liver was performed with 10 separate measurements of the liver parenchyma with the patient in the supine position. Measurements were obtained approximately 2 cm below Davie's capsule and perpendicular to the capsule. The median shear wave velocity is 1.80 m/s. The interquartile range/median (IQR/median) is 0.05. Gallbladder and biliary tree: The gallbladder is unremarkable, without evidence of calculi, wall thickening, or pericholecystic fluid. There is no sonographic Desai sign. The common bile duct is normal in caliber measuring 4 mm. Kidneys: The right kidney measures 10.9 cm in length. The left kidney measures 13.3 cm in length. The kidneys are unremarkable, without evidence of masses, hydronephrosis, or calculi. Pancreas: The pancreatic head, neck, and body are unremarkable. The pancreatic tail is obscured by bowel gas. Spleen: The spleen is enlarged, measuring 13.3 cm in length. Abdominal aorta and inferior vena cava: The visualized portions of the abdominal aorta and inferior vena cava are normal in caliber. There is no free fluid in the abdomen. US/US abdomen comp w elastography IMPRESSION: Hepatosplenomegaly and findings suggestive of hepatic cirrhosis. Hepatic steatosis. The median shear wave velocity in the liver is 1.80 m/s, corresponding to a median liver stiffness of 9.77 kPa. The IQR/median value is 0.05. This is indicative of a quality data set. Findings are indicative of a high elastography value suggestive of compensated advanced chronic liver disease. REFERENCE: Society of Radiologists in Ultrasound Liver Stiffness Thresholds (2020): LIVER STIFFNESS THRESHOLDS: *Shear wave velocity less than 1.3 m/s (Liver Stiffness equal or less than 5 kPa): High probability of being normal. *Shear wave velocity less than 1.7 m/s (Liver Stiffness less than 9 kPa): In the absence of other known clinical signs, rules out compensated advanced chronic liver disease. *Shear wave velocity between 1.7-2.1 m/s (Liver Stiffness 9-13 kPa): Suggestive of compensated advanced chronic liver disease but need further test for confirmation. *Shear wave velocity between 2.1-2.4 m/s (Liver Stiffness 13-17 kPa): Rules in compensated advanced chronic liver disease. *Shear wave velocity greater than 2.4 m/s (Liver Stiffness over 17 kPa): Suggestive of clinically significant portal hypertension. QUALITY OF DATA SET: *IQR/Median value equal or less than 0.15 implies a quality data set. *IQR/Median value over 0.15 implies a poor quality data set. SIGNIFICANT CHANGE FROM PRIOR EXAM: Significant change if liver stiffness measurement is 10% or greater from prior exam. OTHER CONSIDERATIONS: The stage of liver fibrosis may be overestimated in the setting of acute hepatitis, liver inflammation, elevated liver function tests, hepatic vascular congestion, obstructive cholestasis, non-fasting state, and infiltrative diseases such as amyloidosis and lymphoma. In some patients with NAFLD, the liver stiffness thresholds for compensated advanced chronic liver disease may be lower. In causes other than viral hepatitis and NAFLD, liver stiffness thresholds are not well established. Electronically signed by: Aleks Berman MD 05/10/2025 09:01 AM EDT
--- OUTSIDE RECORDS SUMMARY | 2025-05-10 07:46 | XMS_ITS | Encounter Summary ---
Author Organization [employer] Address [address] [facility] [address] 7[address] [place] [address] Care Team Providers Care Brusher Machine Name Role Phone Yolanda Aaron MD Primary Care Provider + Cris Cabrera RN Unavailable [phone] Encounter Details Date Type Department Care Team (Late st Contact Info) Description 12/01/2022 Abstract [facility] [address] [place], [place] [phone] Yolanda Aaron MD [address] [place], [place] [phone] Social History Tobacco Use Types Packs/Day Years [...] documented as of this encounter Care Teams Brusher Machine Relationship Specialty Start Date End Date Yolanda Aaron MD [address] [place] [address] PCP - General Family Medicine 08/16/18 Cris Cabrera RN [address] [place] [phone] Commissioner Of Relocation ServicesFiling Or Registry Clerk 04/25/24 08/03/24 documented as of this encounter
== END 2025-05-10 07:45 | disposition home or self-care (01) ==
LOC: HO.US 07:44
PROVIDERS: PCP Internal Medicine; Visit Provider Internal Medicine
DX: R79.89 Other specified abnormal findings of blood chemistry (principal); Z78.9 Other specified health status
CPT/HCPCS: 76700; 76981

== ENCOUNTER → 2025-05-10 07:46 | Outpatient (BNV) | payer MEDICAID, SELFPAY | PROVIDERS: PCP Internal Medicine; Visit Provider Radiology Diagnostic Radiology | DX: R16.2 Hepatomegaly with splenomegaly, not elsewhere classified (principal) | CPT/HCPCS: 76700 ==

== ENCOUNTER 2025-06-12 11:08 | Outpatient (REF) | payer MEDICAID, SELFPAY ==
[2025-06-12 11:47] LABS: Hematocrit 42.9 % (37.0-47.0); Hemoglobin 13.9 g/dl (12.0-16.0); Mean Corpuscular HGB Conc 32.4 g/dl (31.0-35.0); Mean Corpuscular Hemoglobin 29.6 pg (27.0-33.0); Mean Corpuscular Volume 91.5 fL (80.0-98.0); NRBC Abs Auto 0.000 X10*3/uL (0.0-0.012); NRBC Pct Auto 0.0 /100WBC (0.0-0.2); Platelet Count 290 X10*3/uL (160-400); Red Blood Count 4.69 X10*6/uL (4.20-5.50); White Blood Count 7.0 X10*3/uL (4.8-10.8)
[2025-06-12 11:51] LABS: INTERNATIONAL NORM RATIO 1.1 (0.9-1.1); Prothrombin Time 12.5 SEC (10.9-12.4)
--- OUTSIDE RECORDS SUMMARY | 2025-06-12 12:24 | XMS_ITS | Encounter Summary ---
Author Organization [employer] Address [address] [facility] 7[address] [place] [address] Care Team Providers Care Inspector Rag Sorting Name Role Phone Yolanda Aaron MD Primary Care Provider + Cris Cabrera RN Unavailable [phone] Encounter Details Date Type Department Care Team (Late st Contact Info) Description 12/01/2022 Abstract [facility] [address] [place], [place] [phone] Yolanda Aaron MD [address] [place], [place] [phone] Social History Tobacco Use Types Packs/Day Years [...] documented as of this encounter Care Teams Inspector Rag Sorting Relationship Specialty Start Date End Date Yolanda Aaron MD [address] [place] [address] PCP - General Family Medicine 08/16/18 Cris Cabrera RN [address] [place] [id number] Payroll Administrative AssistantFinance Specialist 04/25/24 08/03/24 documented as of this encounter
[2025-06-12 12:49] LABS: Alanine Aminotransferase 64 U/L (0-31); Albumin Level 4.2 g/dL (3.5-5.0); Alkaline Phosphatase 76 U/L (39-117); Anion Gap 12 (12-20); Aspartate Amino Transferase 40 U/L (5-31); Blood Urea Nitrogen 12 mg/dL (9-16); Calcium 9.1 mg/dL (8.4-10.2); Carbon Dioxide 26 mmol/L (22-29); Chloride 109 mmol/L (96-108); Estimated Glomerular Filt Rate > 60; Potassium 4.0 mmol/L (3.3-5.1); Sodium 143 mmol/L (135-145); Total Protein 7.3 g/dL (6.5-8.0)
== END 2025-06-12 11:09 | disposition home or self-care (01) ==
LOC: HO.LAB 11:08
PROVIDERS: PCP Internal Medicine; Visit Provider Internal Medicine
DX: Z78.9 Other specified health status (principal)
CPT/HCPCS: 36415; 80053; 85027; 85610

== ENCOUNTER 2025-06-14 15:16 | Outpatient (AMB) | payer MEDICAID, SELFPAY ==
--- NOTE | 2025-06-14 15:19 | A.OFFVIS_ITS ---
Vital Signs 06/14/25 15:20 Height 5 ft 4 in Weight 176 lb 5.917 oz BMI 30.3 BP 113/82 Blood Pressure Location Lt brachial Position Sitting Pulse 80 Intake Visit Reasons: slow transit Intake Note: Nisha presents in the office as a follow up for her slow transit. CC: She states that she is feeling okay and no concerns at this time. Chief Of Hospital Medicine Required: No Allergies Penicillins Adverse Reaction (Verified 03/29/25 14:25) vaginal itching HPI Comments Details: This is a 38y.o F with PMH of who is here for elevated LFTs. Seen with [facility] erp developer. 07/15/23 Pt reports having intermittent RUQ pain that started around earlier this year associated with nausea. Used to drink etOH up to 4-5 nips of fireball and a 12 p ack of beer in one day x 5 years. Has recently hard liqupr quit since her hospital visit earlier this year when she was told about liver inflammation. COntinues to consume 3-4 beers over the weekends still. Sometimes also smokes tobacco. No marijuana or IVDU. Pt also lost almost 30 lbs in the last 3 months after she cut down on drinking as well modified her diet. 09/09/23: Here for follow up for elevated LFTs. Work up done after last visit reviewed with the pt. Essentially consistent with elevated LFTs 2/2 etOH use. Pt reports that since last visit has cut down etOH intake to once a week - however still consumes 5-6 beers in that one session. Otherwise no abd pain, N,V, D. No changes in bowel habits. 03/15/25: Was lost to follow up. Has cut down drinking. Drinks 6 beers in 2-3 weeks compared to 6 beers daily. No more fireballs. LFTs better than before but still not completely normal. Pt herself reports constipation. Has 2-3 BMs per week assoc with bloating and abd discomfort. Takes stool softener which doesnt always help. Fam hx of colon cancer in father - dx at age 70s. Maternal aunt and mat grandma also from colon cancer. Laboratory Tests 12/08/24 12/08/24 01/24/25 11:17 23:33 09:20 AST 81 H 75 H 34 H ALT 101 H 106 H 50 H 06/14/25: Here for routine 3 month follow up. Reports reports good response to Linzess 72 that was prescribed in March. Needs a refill. In terms of alcohol use, reports sobriety since April 28 weekend. Laboratory Tests 06/12/25 06/12/25 11:13 Unknown PT 12.5 H Total Bilirubin 0.4 AST 40 H ALT 64 H Albumin 4.2 PFSH Medical History UTI (urinary tract infection) Stress incontinence Encounter for screening examination for sexually transmitted disease Bacterial vaginosis Vaginal itching Fibroadenoma Obesity Vaginal discharge Vaginal odor Fracture of orbital floor, blow-out, right, closed Problematic vaginal discharge Mass of right breast Microcalcification of left breast on mammography Well woman exam with routine gynecological exam Pelvic pain Breast lump Abnormal Pap smear of cervix Pulmonary embolism Bilateral pulmonary embolism PE (pulmonary thromboembolism) DVT (deep venous thrombosis) Surgical History Hx of tubal ligation Hx of foot surgery Family History Maternal Aunt Breast cancer, Onset Age: 29 Colon cancer Brother Diabetes Sister Diabetes Maternal Aunt Metastasis from esophageal cancer Father Colon cancer Family/Other Colon cancer Social History Household Members: Children Housing: Apartment Are you a primary patient care secretary to a significant other at home: No Do you presently have visiting nurse or other home services: No Alcohol intake: never Patient Tobacco Use Status: Current everyday Tobacco user Tobacco use type: Cigarette service: No Current occupational status: unemployed Gender identity: Female Female Reproductive History Menstrual Age of Menarche: 13 Review of Systems Const All systems reviewed & are unremarkable except as noted in HPI and below Physical Exam Exam Exam: No apparent distress Nonicteric Abdomen soft, nondistended Alert and oriented x3, normal gait Vital Signs: Last Vital Signs Pulse 80 06/14/25 15:20 BP 113/82 06/14/25 15:20 BMI result Body Mass Index 30.3 Results Reviewed Results Reviewed: Elastography 04/2025 Hepatosplenomegaly and findings suggestive of hepatic cirrhosis. Hepatic steatosis. The median shear wave velocity in the liver is 1.80 m/s, corresponding to a median liver stiffness of 9.77 kPa. The IQR/median value is 0.05. This is indicative of a quality data set. Findings are indicative of a high elastography value suggestive of compensated advanced chronic liver disease. Assessment & Plan Assessment & Plan (1) Alcohol use: Code(s): Z78.9 - Other specified health status Category: Social Hx (2) Elevated LFTs: Code(s): R79.89 - Other specified abnormal findings of blood chemistry Category: Medical (3) Chronic idiopathic constipation: Code(s): K59.04 - Chronic idiopathic constipation Category: Medical (4) Family history of colon cancer: Code(s): Z80.0 - Family history of malignant neoplasm of digestive organs Category: Medical Plan 1. 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 Congratulated on sobriety over the last 6 weeks. Reviewed that will recheck labs after at least 3 months of sobriety. Reminder set. Also discussed results of the elastography, that we are concerned for underlying advanced fibrosis. MRI has been ordered, due in July. She was also counseled on modificaiton of metabolic factors to avoid worsening of non-etOH steatohepatitis. Plan: - EtOH abstinence - MRI liver protocol due 07/2025 - liver labs to be done in 2 months 2. CIC Likely 2/2 lack of fiber and adequate hydration. Tried MiraLax and bisacodyl without much response. Has had good response to Linzess. Plan: - Cont fiber supplementation - Encourage hydration - Elevate legs while having BM - Cont linzess 72 - refilled 3. Fam hx of CRC Given age of dx of CRC in father, will need a colo at 40 y.o. Further screening intervals will be routine. Follow up 3 months Orders: Orders Liver Panel 2 Months R79.89 - Other specified abnormal findings of blood chemistry Phosphatidylethanol, Blood 2 Months Z78.9 - Other specified health status Medications: Refilled linaclotide (Linzess) 72 mcg PO DAILY 90 caps 1RF Coding Level of Care Code Est Pt Level 4 (13737) Diagnoses Alcohol use Z78.9 Elevated LFTs R79.89 Chronic idiopathic constipation K59.04 Family history of colon cancer Z80.0
[2025-06-14 15:20] VITALS: BP 113/82; PULSE 80; BMI 30.3
--- OUTSIDE RECORDS SUMMARY | 2025-06-14 16:10 | XMS_ITS | Encounter Summary ---
Author Organization [employer] Address [address] [place] [address] Care Team Providers Care Pens And Pencils Dipper Name Role Phone Yolanda Aaron MD Primary Care Provider + Cris Cabrera RN Unavailable [phone] Encounter Details Date Type Department Care Team (Late st Contact Info) Description 12/01/2022 Abstract [facility] MEDICINE [address], [place] [phone] Yolanda Aaron MD [address], [place] [phone] Social History Tobacco Use Types Packs/Day Years [...] documented as of this encounter Care Teams Pens And Pencils Dipper Relationship Specialty Start Date End Date Yolanda Aaron MD [address] [place] [address] PCP - General Family Medicine 08/16/18 Cris Cabrera RN [address] [place] [phone] An Employee Sponsor Or Advocate [employer]Cr[employer] Lab Technician 04/25/24 08/03/24 documented as of this encounter
== END 2025-06-14 15:47 | disposition home or self-care (01) ==
LOC: HO.HGI 15:17
PROVIDERS: PCP Internal Medicine; Visit Provider Internal Medicine
DX: Z78.9 Other specified health status (principal); R79.89 Other specified abnormal findings of blood chemistry; K59.04 Chronic idiopathic constipation; Z80.0 Family history of malignant neoplasm of digestive organs
CPT/HCPCS: 99214

== ENCOUNTER → 2025-06-14 15:16 | Outpatient (BNVA) | payer MEDICAID, SELFPAY | PROVIDERS: PCP Internal Medicine; Visit Provider Internal Medicine | DX: K59.04 Chronic idiopathic constipation (principal); R79.89 Other specified abnormal findings of blood chemistry; Z78.9 Other specified health status; Z80.0 Family history of malignant neoplasm of digestive organs | CPT/HCPCS: 99212 ==

== ENCOUNTER 2025-06-28 11:29 | Outpatient (AMB) | payer MEDICAID, SELFPAY ==
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
[2025-06-28 11:49] VITALS: BP 100/70; PULSE 77; O2SAT 97; BMI 30.6
== END 2025-06-28 12:37 | disposition home or self-care (01) ==
LOC: HO.HSMS 11:30
PROVIDERS: PCP Internal Medicine; Visit Provider Nurse Practitioner Family
DX: G43.109 Migraine with aura, not intractable, without status migrainosus (principal); H81.10 Benign paroxysmal vertigo, unspecified ear; R25.2 Cramp and spasm; R20.0 Anesthesia of skin; R20.2 Paresthesia of skin; D64.9 Anemia, unspecified; G47.33 Obstructive sleep apnea (adult) (pediatric)
CPT/HCPCS: 99214

== ENCOUNTER 2025-06-29 09:54 | Outpatient (REF) | payer MEDICAID, SELFPAY ==
--- OUTSIDE RECORDS SUMMARY | 2025-06-29 10:55 | XMS_ITS | Encounter Summary ---
Author Organization [employer] Address [address] [place] [address] Care Team Providers Care Medical Radiation Tech Name Role Phone Yolanda Aaron MD Primary Care Provider + Cris Cabrera RN Unavailable [phone] Encounter Details Date Type Department Care Team (Late st Contact Info) Description 12/01/2022 Abstract [facility] MEDICINE [address], [place] [phone] Yolanda Aaron MD [address] [place], [place] [phone] Social History Tobacco Use Types Packs/Day Years [...] Care Team (Late st Contact Info) Description 07/14/2025 12:00 PM EDT Office Visit [facility] MEDICINE [address] [place] [phone] Yolanda Aaron MD [address] [place] [phone] documented as of this encounter Visit Diagnoses Not on filedocumented in this encounter Additional Health Concerns Assessment Noted Time PHQ-9 Depression Total Score: 11 023 11:41 AM EST documented as of this encounter Care Teams Medical Radiation Tech Relationship Specialty Start Date End Date Yolanda Aaron MD [address] [place] [phone] PCP - General Family Medicine 08/16/18 Cris Cabrera RN [address] [place] [id number] Roll ForgerDemo Specialist 04/25/24 08/03/24 documented as of this encounter
--- OUTSIDE RECORDS SUMMARY | 2025-06-29 10:55 | XMS_ITS | Encounter Summary ---
Author Organization [employer] Address [address] [address] [place] [address] Care Team Providers Care Development Trainer Name Role Phone Yolanda Aaron MD Primary Care Provider + Encounter Details Date Type Department Care Team (Latest Contact Info) Description 05/25/2025 Results Follow-Up [facility] [address] [place] [address] Yolanda Aaron MD [address] [place] [address] US Abdomen Comp w elastography Social History Tobacco Use Types Packs/Day Years Used Date Smoking Tobacco: Some Days Cigarettes Passive Smoke Exposure: Current Smokeless Tobacco: Never Alcohol Use Standard Drinks/Week Comments Yes 0 (1 standard drink = 0.6 oz pur e alcohol) oca Depression Answer Date Recorded Patient Health Questionnaire-9 Score 03/16/2025 Patient Health Questionnaire-9 Score 22 03/16/2025 [...] Description 07/14/2025 12:00 PM EDT Office Visit [facility] [address] [place] [address] Yolanda Aaron MD [address] [place] [id number] documented as of this encounter Visit Diagnoses Not on filedocumented in this encounter Additional Health Concerns Assessment Noted Time PHQ-9 Depression Total Score: 22 025 11:10 AM EDT documented as of this encounter Care Teams Development Trainer Relationship Specialty Start Date End Date Yolanda Aaron MD [address] [place] [id number] PCP - General Family Medicine 08/16/18 documented as of this encounter
--- OUTSIDE RECORDS SUMMARY | 2025-06-29 10:56 | XMS_ITS | Clinical Summary ---
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 The pancreatic tail is obscured by bowel gas. Spleen: The spleen is enlarged, measuring 13.3 cm in length. Abdominal aorta and inferior vena cava: The visualized portions of the abdominal aorta and inferior vena cava are normal in caliber. There is no free fluid in the abdomen. US/US abdomen comp w elastography IMPRESSION: Hepatosplenomegaly and findings suggestive of hepatic cirrhosis. Hepatic steatosis. The median shear wave velocity in the liver is 1.80 m/s, corresponding to a median liver stiffness of 9.77 kPa. The IQR/median value is 0.05. This is indicative of a quality data set. Findings are indicative of a high elastography value suggestive of compensated advanced chronic liver disease. REFERENCE: Society of Radiologists in Ultrasound Liver Stiffness Thresholds (2019): LIVER STIFFNESS THRESHOLDS: *Shear wave velocity less than 1.3 m/s (Liver Stiffness equal or less than 5 kPa): High probability of being normal. *Shear wave velocity less than 1.7 m/s (Liver Stiffness less than 9 kPa): In the absence of other known clinical signs, rules out compensated advanced chronic liver disease. *Shear wave velocity between 1.7-2.1 m/s (Liver Stiffness 9-13 kPa): Suggestive of compensated advanced chronic liver disease but need further test for confirmation. *Shear wave velocity between 2.1-2.4 m/s (Liver Stiffness 13-17 kPa): Rules in compensated advanced chronic liver disease. *Shear wave velocity greater than 2.4 m/s (Liver Stiffness over 17 kPa): Suggestive of clinically significant portal hypertension. QUALITY OF DATA SET: *IQR/Median value equal or less than 0.15 implies a quality data set. *IQR/Median value over 0.15 implies a poor quality data set. SIGNIFICANT CHANGE FROM PRIOR EXAM: Significant change if liver stiffness measurement is 10% or greater from prior exam. OTHER CONSIDERATIONS: The stage of liver fibrosis may be overestimated in the setting of acute hepatitis, liver inflammation, elevated liver function tests, hepatic vascular congestion, obstructive cholestasis, non-fasting state, and infiltrative diseases such as amyloidosis and lymphoma. In some patients with NAFLD, the liver stiffness thresholds for compensated advanced chronic liver disease may be lower. In causes other than viral hepatitis and NAFLD, liver stiffness thresholds are not well established. Electronically signed by: Aleks Berman MD 05/10/2025 09:01 AM EDT Dictated By: Aleks Berman MD Signed By: <Electronically signed by Aleks Berman MD in OV> 05/10/25 0901 DD/ 0821 TD/TT: 05/10/25 0848 Forming Machine Operator: [facility] External Provider IMG US PROCEDURES Final Result * Syphilis Screen (03/30/2025 9:16 AM EDT) Syphilis Screen Nonreactive Nonreactive [facility] Blood 03/30/2025 9:16 AM EDT 03/30/2025 11:37 AM EDT Jairo Bingham MD LAB BLOOD ORDERABLES Fin al Result [facility] [address] [place] [address] [phone] * Vitamin D, 25-Hydroxy, Total, Immunoassay (03/30/2025 9:16 AM EDT) Vitamin D 25-OH Total 33.5 >30 ng/mL [facility] Comment: Health Based Reference Values*< 20 ng/mL Imewrnrmz23-28 ng/mL Insufficient> 30 ng/mL Sufficient*Shmuel LARA. N Engl J Med. 2007;357:266-280There is no well-established upper level of normal vitamin Dlevels. Some laboratories use 50 ng/mL as an upper limit ofnormal. However, toxicity is patient-dependent and may occurat any level. Careful correlation with the patient'spresentation is necessary and, if there is concern forvitamin D toxicity, treatment should be consideredirrespective of the serum level.Care must be taken in interpreting Vitamin D results fromdifferent laboratories and methodologies. Published datademonstrated that results from patients undergoinghemodialysis may show a negative bias when tested withvarious automated 25-OH vitamin D assays when compared toLC-MS/MS.When testing samples from patients whose predominant form ofVitamin D is Vitamin D2, such as patients receiving VitaminD2 supplementation, results that are subtherapeutic shouldbe confirmed with another method such as LC-MS/MS. Blood 03/30/2025 9:16 AM EDT 03/30/2025 11:37 AM EDT Jairo Bingham MD LAB BLOOD ORDERABLES Fin al Result Performing Organization Address [facility] Co de Phone Number [facility] [address] [place] [address] [phone] * TSH with Reflex to Free T4 (03/30/2025 9:16 AM EDT) TSH reflex Free T4 0.96 0.32 - 4.0 uIU/mL [facility] Blood 03/30/2025 9:16 AM EDT 03/30/2025 11:37 AM EDT Jairo Bingham MD LAB BLOOD ORDERABLES Fin al Result Performing Organization Address [facility] Phone Number [facility] [address] [place] [address] [phone] * Hepatitis Panel, General (03/30/2025 9:16 AM EDT) Hepatitis A IgM Nonreactive Nonreactive [facility] Comment:IgM antibodies to PFEIFFER V not detected; does not exclude earlyacute or recovered HAV infection. ~Hepatitis B Surface Antibody REACTIVE Nonreactive [facility] Comment:REACTIVE: > 11.99 mI U/mL Hepatitis B Core Antibody Nonreactive Nonreactive [facility] Hepatitis C Antibody Nonreactive Nonreactive [facility] Comment:Antibodies to HCV no t detected; does not exclude early acuteHCV infection. Hepatitis B Surface Ag Negative Negative [facility] Blood 03/30/2025 9:16 AM EDT 03/30/2025 11:37 AM EDT Jairo Bingham MD LAB BLOOD ORDERABLES Fin al Result Performing Organization Address [facility] Co de Phone Number [facility] [address] [place] [address] [phone] * HIV-1/2 Antigen and Antibodies, Fourth Generation, with Reflexes (03/30/2025 9:16 AM EDT) HIV AB/AG Nonreactive Nonreactive [facility] Comment:HIV-1 p24 Ag and/or HIV-1/HIV-2 Ab not detected.A test result that is nonreactive does not exclude thepossibility of exposure to or infection with HIV-1 and/orHIV-2. Nonreactive results in this assay for individualswith prior exposure to HIV-1 and/or HIV-2 may be due toantigen and antibody levels that are below the limit ofdetection of this assay.The [employer]change HIV Ag/Ab Combo assay result andsupplemental assay results should be interpreted inconjunction with the patient's clinical presentation,history and other laboratory results. If the results areinconsistent with clinical evidence, additional testing issuggested to confirm the result. Blood Venous blood specimen / Unknown 03/30/2025 9:16 AM EDT 03/30/2025 11:37 AM EDT us Jairo Bingham MD LAB BLOOD ORDERABLES Manjit jayne Result - Final [facility] [address] [place] [address] [phone] * Hemoglobin A1c (03/30/2025 9:16 AM EDT) Hemoglobin A1c 5.5 <6.0 % [facility] Comment:Hemoglobin A1C Refer ence Range Adults: 4.8 - 6.0 % Non diabetic: < 6.0 % Goal: < 7.0 %Additional Action Suggested: > 8.0 %Note: Hemoglobin A1c results are invalid for patients with abnormal amounts of HbF. Blood transfusions may impact the HbA1c concentration in the patient sample. Estimated Average Glucose 111 mg/dL [facility] Comment:eAG = Estimated ave rage glucose which is %A1C expressed asaverage glucose, using the formula of the R5M-GduiykoNabhorn Glucose study (ADAG), Diabetes Care, Vol.31,#8,2007 Blood Venous blood specimen / Unknown 03/30/2025 9:16 AM EDT 03/30/2025 11:37 AM EDT Jairo Bingham MD LAB BLOOD ORDERABLES Fin al Result Performing Organization Address [facility] de Phone Number [facility] [address] [place] [address] [phone] * (ABNORMAL) Hepatic Function Panel (03/30/2025 9:16 AM EDT) Pathologist [facility] [place] Bilirubin, Total 0.5 0.0 - 1.0 mg/dL [facility] Bilirubin, Direct 0.2 0.0 - 0.5 mg/dL [facility] Aspartate Amino Transferase 68(H) 5 - 31 U/L [facility] Alanine Aminotransferase 89(H) 0 - 31 U/L [facility] Total Protein 7.3 6.5 - 8.0 g/dL [facility] Albumin Level 4.1 3.5 - 5.0 g/dL [facility] Alkaline Phosphatase 70 39 - 117 U/L [facility] Blood Venous blood specimen / Unknown 03/30/2025 9:16 AM EDT 03/30/2025 11:37 AM EDT Jairo Bingham MD LAB BLOOD ORDERABLES Fin al Result Performing Organization Address [facility] de Phone Number [facility] [address] [place] [address] [phone] * (ABNORMAL) Basic Metabolic Panel (03/30/2025 9:16 AM EDT) Sodium 139 135 - 145 mmol/L [facility] Potassium 4.2 3.3 - 5.1 mmol/L [facility] Chloride 108 96 - 108 mmol/L [facility] Carbon Dioxide 26 22 - 29 mmol/L [facility] Anion Gap 9(L) 12 - 20 [facility] Urea Nitrogen (BUN) 15 9 - 16 mg/dL [facility] Creatinine, Serum 0.72 0.5 - 1.4 mg/dL [facility] Estimated Glomerular Filt Rate >60 [facility] Comment:Chronic Kidney Disea se: Estimated GFR < 60 mL/min/1.11g6Cyaiwl Kidney Disease: Estimated GFR < 15 mL/min/1.73m2 Glucose 91 60 - 115 mg/dL [facility] Calcium 9.4 8.4 - 10.2 mg/dL [facility] Blood Venous blood specimen / Unknown 03/30/2025 9:16 AM EDT 03/30/2025 11:37 AM EDT us Jairo Bingham MD LAB BLOOD ORDERABLES Fin al Result [facility] [address] [place] [address] [phone] * (ABNORMAL) Bacterial Vaginosis (03/29/2025 2:20 PM EDT) TRICHOMONAS VAGINALIS DETECTION BY PCR NOT DETECTED Not Detect [facility] BACTERIAL VAGINOSIS DETECTION BY PCR NEGATIVE Negative [facility] Comment:The BV organism targ ets of [...] DETECTION BY PCR DETECTED(A) Not Detect [facility] Serenity glab krusei PCR NOT DETECTED Not Detect [facility] 03/29/2025 2:20 PM EDT 03/29/2025 4:39 PM EDT us Generic External Data Provider LAB MICROBIOLOGY - GENERAL ORDERABLES Final Result [facility] [address] [place] [phone] * Chlamydia/N. Gonorrhoeae RNA, TMA, Urogenitial (03/29/2025 2:20 PM EDT) CT PCR NOT DETECTED Not Detect. [facility] Comment:A not detected test result does [...] NG PCR NOT DETECTED Not Detect. [facility] Comment:A not detected test result does [...] PM EDT 03/29/2025 4:39 PM EDT Narrative [facility] - 03/29/2025 9:27 PM EDT Vaginal us Generic External Data Provider LAB MICROBIOLOGY - GENERAL ORDERABLES Final Result Performing Organization Address [facility] Co de Phone Number [facility] [address] [place] [address] [phone] * Culture, Urine, Routine (03/29/2025 2:20 PM EDT) Urine Urine specimen obtained by clean catch procedure / Unknown 03/29/2025 2:20 PM EDT 03/29/2025 4:39 PM EDT Comment:UACC Narrative [facility] - 04/01/2025 7:20 AM EDT Escherichia coli Quant 50,000 to 100,000 cfu/mL Escherichia coli: Ampicillin >=32(R) Escherichia coli: Cefazolin (Urine) 2(S) Escherichia coli: Cefepime <=0.12(S) Escherichia coli: Ceftriaxone <=0.25(S) Escherichia coli: Ciprofloxacin <=0.06(S) Escherichia coli: Gentamicin <=1(S) Escherichia coli: Nitrofurantoin <=16(S) Escherichia coli: Trimethoprim/Sulfamethoxazole >=320(R) Specimen Source: Urine clean catch Generic External Data Provider LAB MICROBIOLOGY - GENERAL ORDERABLES Final Result Performing Organization Address [facility] de Phone Number [facility] [address] [place] [address] [phone] * BI Mammogram Screening Tomosynthesis Bilateral (01/05/2025 2:00 PM EDT) Anatomical Region Laterality Modality Breast Bilateral Mammography 01/05/2025 2:00 PM EDT Narrative 01/14/2025 10:59 AM EDT [address] [place] [address] Mammography Report Signed Patient: Nisha Brown MR# : [id number] : 1985 Acct:[id number] Age/Sex: 39 / F ADM Date: 01/05/25 Loc: HO.MAMMO Attending Dr: Jairo Bingham MD Ordering Physician: Jairo Bingham MD Results: 2Be nign Findings Date of Service: 01/05/25 Follow Up: 1 Year From Orig inal Mammogram Procedure(s): MM tomosynthesis screening BI Accession Number(s): [id number] cc: Jairo Bingham MD EXAMINATION: MM SCREENING DIGITAL BREAST TOMOSYNTHESIS, [...] Viky Coronado DO 01/14/2025 10:57 AM EDT RP Dictated By: Viky Coronado DO Signed By: <Electronically signed by Viky Coronado DO in OV> 01/14/25 1057 DD/ 1400 TD/TT: 01/05/25 1415 Forming Machine Operator: Procedure Note Donotuseinterpreter, Image - 01/14/2025 [facility] [address] [place] [address] [place] [address] Mammography Report Signed Patient: Kiki Brown# : [id number] : 1985Acct:[id number] Age/Sex: 39 / FADM Date: 01/05/25 Loc: HO.MAMMO Attending Dr: Jairo Bingham MD Ordering Physician: Jairo Bingham MDResults: 2Be nighumble Findings Date of Service: 01/05/25Follow Up: 1 Year From Orig inal Mammogram Procedure(s): MM tomosynthesis screening BI Accession Number(s): [id number] cc: Jairo Bingham MD EXAMINATION: MM SCREENING DIGITAL BREAST TOMOSYNTHESIS, [...] 01/14/25 1057 DD/ 1400 TD/TT: 01/05/25 1415 Forming Machine Operator: Jairo Bingham MD [facility] BI PROCEDURES Edited Result - Final * HPV E6/E7 RFLX XENIA 16 18/45 (02/12/2022 3:42 PM EDT) HPV mRNA E6/E7 rflx Not Detected Not Detected [facility] Comment: Methodology: Park Interpreter-Mediated Amplification This assay detects E6/E7 viral messenger RNA (mRNA) from 14 high-risk HPV types (16,18,31,33,35,39,45,51,52,56,58,59,66,68). The analytical performance characteristics of this assay have been determined by [employer]. The modifications have not been cleared or approved by the FDA. This assay has been validated pursuant to the CLIA regulations and is used for clinical purposes. For additional information, please refer to http://education.TrewCap.Kneebone/faq/VYL143f4 (This link if provided for information/ educational purposes only.) THIS TEST WAS PERFORMED AT: [facility] [facility] [address] [place] [address] [address] [address] TREY MCELROY MD 02/12/2022 3:42 PM EDT [facility] HISTORICAL/NON ORDERABLE LABS Fi nal Result [facility] [address] * Pap Smear (02/12/2022) Historical Provider HEALTH MAINTENANCE Final Result from Last 3 Months or Most Recently Relevant to Health Maintenance [facility] Care Teams Community Engagement Specialist Relationship Specialty Start Date End Date Jairo Bingham MD [address] [place] [phone] PCP - General Family Medicine 08/16/18
--- OUTSIDE RECORDS SUMMARY | 2025-06-29 10:56 | XMS_ITS | Encounter Summary ---
Author Organization [employer] Address [address] [facility] [address] [place] [address] Care Team Providers Care Trade Specialist Name Role Phone Yolanda Aaron MD Primary Care Provider + Cris Cabrera RN Unavailable [phone] Encounter Details Date Type Department Care Team (Late st Contact Info) Description 07/20/2023 Orders Only [facility] [address] [place] [phone] Provider, MD Estelle Social History Tobacco Use [...] Department Care Team (Late Contact Info) Description 07/14/2025 12:00 PM EDT Office Visit [facility] [address] [place] [phone] Yolanda Aaron MD [address] [place] [address] documented as of this encounter Procedures Procedure [...] documented as of this encounter Care Teams Trade Specialist Relationship Specialty Start Date End Date Yolanda Aaron MD [address] [place] [address] PCP - General Family Medicine 08/16/18 Cris Cabrera RN [address] [place] [phone] Sensory ScientistReeling Operator 04/25/24 08/03/24 documented as of this encounter
--- OUTSIDE RECORDS SUMMARY | 2025-06-29 10:56 | XMS_ITS | Encounter Summary ---
Author Organization [employer] Address [address] [facility] [address]t [place] [address] Care Team Providers Care Dietary Worker Name Role Phone Yolanda Aaron MD Primary Care Provider + Cris Cabrera RN Unavailable [phone] Encounter Details Date Type Department Care Team (Late st Contact Info) Description 12/24/2022 Orders Only [facility] [address] [place], [place] [phone] Yolanda Aaron MD [address] [place], [place] [phone] Social History Tobacco Use Types Packs/Day Years [...] Description 07/14/2025 12:00 PM EDT Office Visit [facility] [address] [place] [address] Yolanda Aaron MD [address] [place] [phone] documented as of this encounter Visit Diagnoses Not on filedocumented in this encounter Additional Health Concerns Assessment Noted Time PHQ-9 Depression Total Score: 11 023 11:41 AM EST documented as of this encounter Care Teams Dietary Worker Relationship Specialty Start Date End Date Yolanda Aaron MD [address] [place] [address] PCP - General Family Medicine 08/16/18 Cris Cabrera RN [address] [place] [phone] Meat BonerPantry Goods Worker 04/25/24 08/03/24 documented as of this encounter
--- OUTSIDE RECORDS SUMMARY | 2025-06-29 10:56 | XMS_ITS | Encounter Summary ---
Author Organization [employer] Address [address] [facility] 7t [place] [address] Care Team Providers Care Tool And Cutter Grinder Name Role Phone Yolanda Aaron MD Primary Care Provider + Cris Cabrera RN Unavailable [phone] Encounter Details Date Type Department Care Team (Late Contact Info) Description 04/20/2023 Abstract [facility] [address] [place] [phone] Yolanda Aaron MD [address] [place] [address] [phone] Social History Tobacco Use Types Packs/Day Years [...] Description 07/14/2025 12:00 PM EDT Office Visit [facility] [address] [place] [address] Yolanda Aaron MD [address] [place] [address] documented as of this encounter Visit Diagnoses Not on filedocumented in this encounter Additional Health Concerns Assessment Noted Time PHQ-9 Depression Total Score: 13 023 2:39 PM EDT documented as of this encounter Care Teams Tool And Cutter Grinder Relationship Specialty Start Date End Date Yolanda Aaron MD [address] [place] [address] PCP - General Family Medicine 08/16/18 Cris Cabrera RN [address] [place] [address] [phone] Summer AnalystSkilled Trades Teacher 04/25/24 08/03/24 documented as of this encounter
--- OUTSIDE RECORDS SUMMARY | 2025-06-29 10:56 | XMS_ITS | Encounter Summary ---
Author Organization [employer] Address [address] [place] [address] Care Team Providers Care Workers Compensation Administrator Name Role Phone Yolanda Aaron MD Primary Care Provider + Cris Cabrera RN Unavailable [phone] Encounter Details Date Type Department Care Team (Late st Contact Info) Description 08/05/2023 Abstract [facility] [address] [place], [place] [phone] Yolanda Aaron MD [address] [place] [address] Social History Tobacco Use Types Packs/Day Years [...] 12:00 PM EDT Office Visit [facility] [address] [place] [address] Yolanda Aaron MD [address] [place] [address] documented as of this encounter Visit Diagnoses Not on filedocumented in this encounter Additional Health Concerns Assessment Noted Time PHQ-9 Depression Total Score: 023 3:33 PM EDT documented as of this encounter Care Teams Workers Compensation Administrator Relationship Specialty Start Date End Date Yolanda Aaron MD [address] [place] [address] PCP - General Family Medicine 08/16/18 Cris Cabrera RN [address] [place] [phone] Senior Test AnalystExtension Worker 04/25/24 08/03/24 documented as of this encounter
[2025-06-29 10:58] LABS: MANUAL DIFF FLAG NO
[2025-06-29 11:41] LABS: Hemoglobin A1C 127.7583 umol/L; Total Hemoglobin (HGBA1C) 3568.6370 umol/L
[2025-06-29 11:43] LABS: Hematocrit 41.4 % (37.0-47.0); Hemoglobin 13.9 g/dl (12.0-16.0); Imm Gran Abs Auto 0.02 X10*3/uL (0.00-0.03); Imm Gran Pct Auto 0.3 % (0.0-0.4); Lymphocytes Absolute Auto 1.9 X10*3/uL (1.2-4.9); Mean Corpuscular HGB Conc 33.6 g/dl (31.0-35.0); Mean Corpuscular Hemoglobin 30.2 pg (27.0-33.0); Mean Corpuscular Volume 90.0 fL (80.0-98.0); NRBC Abs Auto 0.000 X10*3/uL (0.0-0.012); NRBC Pct Auto 0.0 /100WBC (0.0-0.2); Platelet Count 298 X10*3/uL (160-400); Red Blood Count 4.60 X10*6/uL (4.20-5.50); White Blood Count 7.7 X10*3/uL (4.8-10.8)
[2025-06-29 12:12] LABS: Anion Gap 13 (12-20); Blood Urea Nitrogen 10 mg/dL (9-16); Calcium 8.9 mg/dL (8.4-10.2); Carbon Dioxide 25 mmol/L (22-29); Chloride 109 mmol/L (96-108); Estimated Glomerular Filt Rate > 60; Iron 90 mcg/dL (30-160); Magnesium 2.2 mg/dL (1.6-2.6); Percent Iron Saturation 42 % (15-50); Potassium 4.1 mmol/L (3.3-5.1); Sodium 143 mmol/L (135-145); Total Iron Binding Capacity 215 mcg/dL (228-428); Unsaturated Iron Binding 125 ug/dL
[2025-06-29 12:13] LABS: Alanine Aminotransferase 84 U/L (0-31); Albumin Level 4.1 g/dL (3.5-5.0); Alkaline Phosphatase 77 U/L (39-117); Aspartate Amino Transferase 65 U/L (5-31); Total Protein 7.3 g/dL (6.5-8.0)
[2025-06-29 12:29] LABS: Ferritin 500 ng/mL (10-250)
[2025-06-29 12:38] LABS: Folate 9.3 ng/mL (> or = 4.0); Vitamin B12 473 pg/mL (200-900)
[2025-06-30 05:49] LABS: Lyme Abs Screen <0.90 index
== END 2025-06-29 09:55 | disposition home or self-care (01) ==
LOC: HO.HHCL 09:54
PROVIDERS: PCP Internal Medicine; Visit Provider Nurse Practitioner Family
DX: R25.2 Cramp and spasm (principal); R20.0 Anesthesia of skin; R20.2 Paresthesia of skin; D64.9 Anemia, unspecified; Z01.84 Encounter for antibody response examination
CPT/HCPCS: 36415; 80053; 82607; 82728; 82746; 83036; 83090; 83540; 83735; 83921; 84207; 84425; 84443; 85025; 85652; 86140; 86617; 86618

== ENCOUNTER 2025-07-18 08:14 | Outpatient (REF) | payer MEDICAID, SELFPAY ==
--- OUTSIDE RECORDS SUMMARY | 2025-07-14 15:00 | XMS_ITS | Encounter Summary ---
Author Organization [employer] Address [address] [facility] 7t [place] [address] Care Team Providers Care Logistics Intern Name Role Phone Yolanda Aaron MD Primary Care Provider + Encounter Details Date Type Department Care Team (Late st Contact Info) Description 07/14/2025 3:00 PM EDT Office Visit [facility]INE [address] [place] [address] [facility] [address] [place] [address] Thiamine deficiency neuropathy (Primary Dx) Social History [...] the past 12 months, has t he [employer] gas, oil or water company threatened to [...] documented in this encounter Progress Notes * [facility], LEAD ASSISTANT MANAGER - 07/14/2025 3:00 PM EDT SUBJECTIVE: Nisha Bryan Cantu is a 40 y.o. year old female with hx of recurrent DVT/PE with known prothrombin mutation, AUD, hepatic cirrhosis, bipolar disorder, who presents for evaluation of LE numbness/tingling HPI Pt reports bilateral LE numbness/tingling/burning x several months. Symptoms also sometimes presentin hands. Denies falls, weakness or recent injury. Of note, patient follows with [facility] neurology for migraines. At last visit she brought up symptoms and initial lab work was ordered which showed low vitamin B1. Follows with [facility] neurology. Discussed concerns. Labwork ordered which showed [...] month, PCP Medications Ordered Prior to Encounter[2] French Translation: Provided by [facility] staff member [1] Patient Active Problem List [...] tablet 2 ergocalciferol (Vitamin D2) 1.25 MG (77748 UT) capsule TAKE 1 CAPSULE BY MOUTH [...] Description 09/29/2025 11:15 AM EST Office Visit [facility] [address] [place] [phone] Yolanda Aaron MD [address] [place] [phone] Scheduled Orders Name Type Priority Associated Diagnoses Orde r Schedule Vitamin B1 Lab Routine Thiamine deficiency neuropathy Expected: 07/17/2025 (Approximate), Expires: 07/17/2026 documented as of this encounter Visit Diagnoses Diagnosis Thiamine deficiency neuropathy- Primary [place] documented in this encounter Additional Health Concerns Assessment Noted Time PHQ-9 Depression Total Score: 025 11:10 AM EDT documented as of this encounter Care Teams Logistics Intern Relationship Specialty Start Date End Date Yolanda Aaron MD [address] [place] [phone] PCP - General Family Medicine 08/16/18 documented as of this encounter
--- OUTSIDE RECORDS SUMMARY | 2025-07-18 09:10 | XMS_ITS | Encounter Summary ---
Author Organization [employer] Address [address] [facility] 7t [place] [address] Care Team Providers Care Air Conditioning Unit Assembler Name Role Phone Yolanda Aaron MD Primary Care Provider + Cris Cabrera RN Unavailable [phone] Encounter Details Date Type Department Care Team (Late st Contact Info) Description 12/01/2022 Abstract [facility] [address] [place], [place] [phone] Yolanda Aaron MD [address] [place], [place] [phone] Social History Tobacco Use Types Packs/Day Years [...] Description 09/29/2025 11:15 AM EST Office Visit [facility] [address] [place] [phone] Yolanda Aaron MD [address] [place] [phone] documented as of this encounter Visit Diagnoses Not on filedocumented in this encounter Additional Health Concerns Assessment Noted Time PHQ-9 Depression Total Score: 11 023 11:41 AM EST documented as of this encounter Care Teams Air Conditioning Unit Assembler Relationship Specialty Start Date End Date Yolanda Aaron MD [address] [place] [phone] PCP - General Family Medicine 08/16/18 Cris Cabrera RN [address] [place] [phone] [employer] 04/25/24 08/03/24 documented as of this encounter
--- OUTSIDE RECORDS SUMMARY | 2025-07-18 09:10 | XMS_ITS | Encounter Summary ---
Author Organization [employer] Address [address] [facility] [address] 7[address] [place] [address] Care Team Providers Care Benefit Specialist Name Role Phone Yolanda Aaron MD Primary Care Provider + Encounter Details Date Type Department Care Team (Latest Contact Info) Description 05/25/2025 Results Follow-Up [facility] [address] [place] [address] Yolanda Aaron MD [address] [place] [address] US Abdomen Comp w elastography Social History [...] Description 09/29/2025 11:15 AM EST Office Visit [facility] [address] [place] [phone] Yolanda Aaron MD [address] [place] [address] documented as of this encounter Visit Diagnoses Not on filedocumented in this encounter Additional Health Concerns Assessment Noted Time PHQ-9 Depression Total Score: 22 025 11:10 AM EDT documented as of this encounter Care Teams Benefit Specialist Relationship Specialty Start Date End Date Yolanda Aaron MD [address] [place] [phone] PCP - General Family Medicine 08/16/18 documented as of this encounter
--- OUTSIDE RECORDS SUMMARY | 2025-07-18 09:11 | XMS_ITS | Clinical Summary ---
Author Organization [employer] Address [address] [place] [address] Care Team Providers Care Benzene Washer Name Role Phone Jairo Bingham MD Primary Care Provider + Allergies No known active allergies Medications * This document contains information received from the source organization and may not represent a complete record from that organization. Calcium Carb-Cholecalci ferol 500-10 MG-MCG tablet Take 1 tablet by mouth in the morning and at bedtime. 2 Active ergocalciferol (Vitamin D2) 1.25 MG (34791 UT) capsule TAKE 1 CAPSULE BY MOUTH [...] mg by mouth at bedtime. 5 Active thiamine 100 MG tabletIndicatio ns:Thiamine deficiency neuropathy Take 1 tablet (100 mg) by mouth Once per day. 30 tablet 11 5 07/09/20 26 Active Multiple Vitamin (multivitamin) tabletIndicatio ns:Thiamine deficiency neuropathy Take 1 tablet by mouth Once per day. 30 tablet 3 5 Active Active Problems Problem Noted Date Diagnosed Date Sexually transmitted disease counseling 03/16/20 25 Assessment & Plan (03/16/2025 3:04 PM EDT): [...] Assessment & Plan (03/16/2025 3:01 PM EDT): Bob I gave her information from OT referral [...] referred to AUD program. Fu closely with project manager/team coach Hep B up to date Varicose [...] that she can drop of att he patient coordinator front desk and request a referral at [facility] [...] be referred to [facility] for [facility] and Recovery program. She [...] 500-700s, she has been reluctant to continue longterm anticoagulation. F yearly with hematology Re consutl prn leg edema, sudden CP/SOB Assessment & Plan (03/16/2025 10:42 AM EDT): >>ASSESSMENT AND PLAN FOR HYPERCOAGULABLE STATE (CMS/HCC) WRITTEN ON 06/16/2024 3:45 PM BY JAIRO BINGHAM MD Hx of DVT + PE, has prothrombin gene mutation(heterozygous), she had decided to be off anticoagulation. Will order D-dimers and DVT US of LLE. Call back prn. Assessment & Plan (03/16/2025 10:42 AM EDT): >>ASSESSMENT AND PLAN FOR HYPERCOAGULABLE STATE (CMS/HCC) WRITTEN ON 10/27/2024 8:26 PM BY JAIRO [...] is able to initiate care with her [facility] agency prescriber, she will go ahead and do that instead. She should call [facility] and/or consult her PCP with any [...] close fu with mental health provider and project manager/team coach Counseled to cut down etoh use [...] Plan (12/03/2022 11:27 AM EST): FU by PATIENT REGISTRATION CLERK. Pat for PAP and pelvic US Coming [...] organization. Date Type Department Care Team Description 07/14/2025 3:00 PM EDT Office Visit [address] [address] SpencerKaci FNP Thiamine deficiency neuropathy (Primary Dx) 07/14/2025 Travel 07/11/2025 Telephone [facility] [address] [place] [address] Kriss Montes, AUBREY appt. reschedule 06/29/2025 Orders Only GENERIC EXTERNAL DATA DEPARTMENT Provider, Generic External Data 06/12/2025 Orders Only GENERIC EXTERNAL DATA DEPARTMENT Provider, Generic External Data 05/25/2025 Results Follow-Up [facility] [address] [place], [place] [phone] Jairo Bingham MD US Abdomen Comp w elastography 05/10/2025 Orders Only [facility] External Provider, [facility] 04/19/2025 Telephone [facility] [address], [place] [phone] Guillermina Flores RN from Last 3 Months Immunizations Immunization Administration [...] your housing situation today? I have xavi gordy 04/04/[address] you li [...] Mass Index 33 07/14/2025 3:28 PM EDT Plan of Treatment Upcoming Encounters Date Type Department Care Team (Late st Contact Info) Description 09/29/2025 11:15 AM EST Office Visit [facility] [address] [place] [phone] Jairo Bingham MD [address] [place] [address] Health Maintenance Due Date Last Done Comments [...] Monitoring 09/16/2025 03/16/2025, 025 Mammogram 01/05/2026 01/05/2025, 04/2024, 12/25/2022, Additional history exists Disability Screening 03/16/2026 03/16/2025 Tobacco Screening 07/17/2026 07/17/2025 Cervical Cancer Screening 02/12/2027 HPV/Cotest 02/12/2027 02/12/2022, 01/25, 10/05/2020, Additional history exists Pap Smear 02/12/2027 02/12/2022 Zoster Vaccines (1 of 2) 2035 RSV Patients and Patients Aged 60 years or older (1 - 1-dose 75+ series) 2060 Hepatitis B Vaccines Completed 08/26/2021, 07/22/2021, 03/23/2019, Additional history exists HIV Screening Completed 03/30/2025, 060 12/2024, 12/13/2024, Additional history exists Hepatitis C [...] Name Priority Date/Time Associated Diagnosis Comments VITAMIN B6 Routine 06/29/2025 10:55 AM EDT VITAMIN B1 Routine 06/29/2025 10:55 AM EDT METHYLMALONIC ACID Routine 06/29/2025 10 :55 AM EDT HOMOCYSTEINE Routine 06/29/2025 10:55 AM EDT LYME DISEASE AB W/REFL TO BLOT (IGG, IGM) Routine 06/29/2025 10:55 AM EDT VITAMIN B12/FOLATE, SERUM PANEL Routine 06/29/2025 10:55 AM EDT TSH W/REFLEX TO FT4 Routine 06/29/2025 1 0:55 AM EDT FERRITIN Routine 06/29/2025 10:55 AM EDT C-REACTIVE PROTEIN Routine 06/29/2025 10 :55 AM EDT IRON AND TOTAL IRON BINDING CAPACITY Routine 06/29/2025 10:55 AM EDT MAGNESIUM Routine 06/29/2025 10:55 AM EDT COMPREHENSIVE METABOLIC PANEL, FASTING Routine 06/29/2025 10:55 AM EDT SED RATE BY MODIFIED WESTERGREN Routine 06/29/2025 10:55 AM EDT CBC WITH AUTO DIFFERENTIAL Routine 06/29/2025 10:55 AM EDT HEMOGLOBIN A1C Routine 06/29/2025 10:55 AM EDT PROTHROMBIN TIME-INR Routine 06/12/2025 11:13 AM EDT CBC Routine 06/12/2025 11:13 AM EDT COMPREHENSIVE METABOLIC PANEL Routine 06/12/2025 12:00 AM EDT US ABDOMEN COMPLETE WITH ELASTOGRAPHY Routine 05/10/2025 8:21 AM EDT HEPATITIS PANEL, GENERAL Routine 03/30/2025 9:16 AM EDT Sexually transmitted disease counseling HIV 1/2 ANTIGEN/ANTIBODY, FOURTH GENERATION W/RFL Routine 03/30/2025 9:16 AM EDT Sexually transmitted disease counseling BI MAMMOGRAM SCREENING TOMOSYNTHESIS BILATERAL Routine 01/05/2025 2:00 PM EDT ZZZ HISTORICAL HPV E6/E7 RFLX XENIA 16 18/45 Routine 02/12/2022 3:42 PM EDT HM PAP/HPV Routine 02/12/2022 from Last 3 Months or Most Recently Relevant to Health Maintenance Results * (ABNORMAL) Comprehensive Metabolic Panel, Fasting (06/29/2025 10:55 AM EDT) Sodium 143 135 - 145 mmol/L [facility] Potassium 4.1 3.3 - 5.1 mmol/L [facility] Chloride 109(H) 96 - 108 mmol/L [facility] Carbon Dioxide 25 22 - 29 mmol/L [facility] Anion Gap 13 12 - 20 [facility] Urea Nitrogen (BUN) 10 9 - 16 mg/dL [facility] Creatinine, Serum 0.73 0.5 - 1.4 mg/dL [facility] Estimated Glomerular Filt Rate >60 [facility] Comment:Chronic Kidney Disea se: Estimated GFR < 60 mL/min/1.56w7Xkknui Kidney Disease: Estimated GFR < 15 mL/min/1.73m2 Glucose Fasting 79 60 - 99 mg/dL [facility] Calcium 8.9 8.4 - 10.2 mg/dL [facility] Bilirubin, Total 0.5 0.0 - 1.0 mg/dL [facility] Aspartate Amino Transferase 65(H) 5 - 31 U/L [facility] Alanine Aminotransferase 84(H) 0 - 31 U/L [facility] Total Protein 7.3 6.5 - 8.0 g/dL [facility] Albumin Level 4.1 3.5 - 5.0 g/dL [facility] Alkaline Phosphatase 77 39 - 117 U/L [facility] 06/29/2025 10:5 5 AM EDT 06/29/2025 10:55 AM EDT us Generic External Data Provider LAB BLOOD ORDERAB LES Final Result Performing Organization Address [facility]/ZIP Co de Phone Number [facility] [address] [place] [phone] * Vitamin B12 (Cobalamin) and Folate Panel, Serum (06/29/2025 10:55 AM EDT) Vitamin B12 473 200 - 900 pg/mL [facility] Comment:NORMAL 200-900 PG/ML INDETERMINATE 160-199 PG/ML DEFICIENT < 160 PG/ML Folate 9.3 > or = 4.0 ng/mL [facility] Comment:Reference Values:> o r = 4.0 ng/mL< 4.0 ng/mL suggests folate deficiency Methotrexate, aminopterin and folinic acid(leucovorin) are chemotherapeutic agents whose molecularstructures are similar to folate; therefore, the Architectfolate assay cannot be used for patients using these drugs. 06/29/2025 10:5 5 AM EDT 06/29/2025 10:55 AM EDT us Generic External Data Provider LAB BLOOD ORDERAB LES Final Result Performing Organization Address [facility]/ZIP Co de Phone Number [facility] [address] [place] [address] [phone] * TSH with Reflex to Free T4 (06/29/2025 10:55 AM EDT) TSH reflex Free T4 1.34 0.32 - 4.0 uIU/mL [facility] 06/29/2025 10:5 5 AM EDT 06/29/2025 10:55 AM EDT Generic External Data Provider LAB BLOOD ORDERAB LES Final Result Performing Organization Address [facility]/ZIP Co de Phone Number [facility] [address] [place] [phone] * Lyme Disease Ab with Reflex to Blot (IgG, IgM) (06/29/2025 10:55 AM EDT) Lyme Antibody Screen <0.90 index [facility] Comment:Index Interpretation ----- < 0.90 Negative 0.90-1.09 Equivocal > 1.09 PositiveAs recommended by the Food and Drug Administration(FDA), all samples with positive or equivocalresults in a Borrelia burgdorferi antibody screenwill be tested using a blot method. Positive orequivocal screening test results should not beinterpreted as truly positive until verified as suchusing a supplemental assay (e.g., B. burgdorferi blot).The screening test and/or blot for B. burgdorferiantibodies may be falsely negative in early stagesof Lyme disease, including the period when erythemamigrans is apparent.THIS TEST WAS PERFORMED AT:[facility] [place] [id number] MCELROY MD Lyme Blot TNP [facility] 06/29/2025 10:5 5 AM EDT 06/29/2025 10:55 AM EDT us Generic External Data Provider LAB BLOOD ORDERAB LES Final Result Performing Organization Address [facility]/ZIP Co de Phone Number [facility] [address] [place] [phone] * CBC auto differential (06/29/2025 10:55 AM EDT) White Blood Count 7.7 4.8 - 10.8 X10*3/uL [facility] Red Blood Count 4.60 4.20 - 5.50 X10*6/uL [facility] Hemoglobin 13.9 12.0 - 16.0 g/dl [facility] Hematocrit 41.4 37.0 - 47.0 % [facility] Mean Corpuscular Volume 90.0 80.0 - 98.0 fL [facility] Mean Corpuscular Hemoglobin 30.2 27.0 - 33.0 pg [facility] Mean Corpuscular HGB Conc 33.6 31.0 - 35.0 g/dl [facility] Red Cell Distribution Width 12.4 11.0 - 16.0 % [facility] Platelet Count 298 160 - 400 X10*3/uL [facility] Mean Platelet Volume 10.3 9.4 - 12.3 fL [facility] Neutrophils Percent Auto 67.2 45 - 73 % [facility] Imm Gran Pct Auto 0.3 0.0 - 0.4 % [facility] Lymphocytes Percent Auto 24.9 20 - 40 % [facility] Monocytes Percent Auto 6.6 2 - 11 % [facility] Eosinophils Percent Auto 0.5 0 - 4 % [facility] Basophils Percent Auto 0.5 0 - 2 % [facility] NRBC Pct Auto 0.0 0.0 - 0.2 /100WBC [facility] Neutrophils Absolute Auto 5.2 2.0 - 8.3 x10*3/uL [facility] Imm Gran Abs Auto 0.02 0.00 - 0.03 X10*3/uL [facility] Lymphocytes Absolute Auto 1.9 1.2 - 4.9 X10*3/uL [facility] Monocytes Absolute Auto 0.5 0.1 - 1.2 X10*3/uL [facility] Eosinophils Absolute Auto 0.0 0.0 - 0.4 X10*3/uL [facility] Basophils Absolute Auto 0.0 0.0 - 0.2 X10*3/uL [facility] NRBC Abs Auto 0.000 0.0 - 0.012 X10*3/uL [facility] 06/29/2025 10:5 5 AM EDT 06/29/2025 10:55 AM EDT us Generic External Data Provider LAB BLOOD ORDERAB LES Final Result [facility] [address] [place] [phone] * Methylmalonic Acid (06/29/2025 10:55 AM EDT) Methylmalonic Acid 141 55 - 335 nmol/L [facility] Comment: Serum methylmalonic acid (MMA) levels are used todiagnose and monitor several rare inborn errors ofmetabolism, including methylmalonic aciduria. Theenzymatic conversion of MMA to succinic acid requiresvitamin B12 (adenosyl-cobalamin) as a cofactor. SerumMMA levels are also used for assessing functionalvitamin B12 deficiency. Vitamin B12 is essential forfetal neurodevelopment, particularly early inpregnancy. Undiagnosed maternal vitamin B12 deficiencymay be associated with adverse / outcomes,such as neural tube defects and intrauterine growthrestriction.[employer] utilized Multi-Modal Decomposition(MMD) analysis to establish first and second trimester-specific MMA reference intervals in , as givenbelow:MMA, First trimester (<13 wks gestation): 58-167 nmol/LMMA, Second trimester (13-23 wks gestation):63-241 nmol/LThis test was developed and its analytical performancecharacteristics have been determined by [employer]. It has not been cleared or approved by theFDA. This assay has been validated pursuant to the CLIAregulations and is used for clinical purposes.THIS TEST WAS PERFORMED AT:[id number] [place] [id number] WARREN MD,PHD 06/29/2025 10:5 5 AM EDT 06/29/2025 10:55 AM EDT Generic External Data Provider LAB BLOOD ORDERAB LES Final Result Performing Organization Address [facility] Co de Phone Number [facility] [address] [place] [phone] * (ABNORMAL) Iron And Total Iron Binding Capacity (06/29/2025 10:55 AM EDT) Pathologist [facility] Iron 90 30 - 160 mcg/dL [facility] Total Iron Binding Capacity 215(L) 228 - 428 mcg/dL [facility] Percent Iron Saturation 42 15 - 50 % [facility] Unsaturated Iron Binding 125 ug/dL [facility] 06/29/2025 10:5 5 AM EDT 06/29/2025 10:55 AM EDT Generic External Data Provider LAB BLOOD ORDERAB LES Final Result Performing Organization Address [facility] de Phone Number [facility] [address] [place] [phone] * Sed Rate by Modified Larisa (06/29/2025 10:55 AM EDT) [facility] Erythrocyte Sedimentation Rate 18 0 - 20 MM/HR [facility] Comment:Patients with polycy themia and many hemoglobin abnormalitiesmay have depressed sed rates whereas patients with anemiamay have elevated sed rates. 06/29/2025 10:5 5 AM EDT 06/29/2025 10:55 AM EDT Generic External Data Provider LAB BLOOD ORDERAB LES Final Result Performing Organization Address [facility] Co de Phone Number [facility] [address] [place] [phone] * (ABNORMAL) C-reactive Protein (06/29/2025 10:55 AM EDT) [facility] C Reactive Protein 1.98(H) < or = 0.50 mg/dL [facility] 06/29/2025 10:5 5 AM EDT 06/29/2025 10:55 AM EDT Generic External Data Provider LAB BLOOD ORDERAB LES Final Result Performing Organization Address [facility] Co de Phone Number [facility] [address] [place] [phone] * (ABNORMAL) Vitamin B1 (06/29/2025 10:55 AM EDT) Pathologist [facility] Vitamin B1 <6(A) 8 - 30 nmol/L [facility] Comment:Vitamin supplementat ion within 24 hours prior toblood draw may affect the accuracy of the results.This test was developed and its analytical performancecharacteristics have been determined by [employer] [place], [place]. It hasnot been cleared or approved by the U.S. Food and DrugAdministration. This assay has been validated pursuantto the CLIA regulations and is used for clinicalpurposes.THIS TEST WAS PERFORMED AT:[employer] [place] [address]VHRKSDDGINETTE WARREN MD,PHD 06/29/2025 10:5 5 AM EDT 06/29/2025 10:55 AM EDT Generic External Data Provider LAB BLOOD ORDERAB LES Final Result Performing Organization Address [facility]/ZIP Co de Phone Number [facility] [address] [place] [phone] * Vitamin B6, Plasma (06/29/2025 10:55 AM EDT) Pathologist [facility] Vitamin B6 5.3 2.1 - 21.7 ng/mL [facility] Comment:Vitamin supplementat ion within 24 hours prior toblood draw may affect the accuracy of the results.This test was developed and its analytical performancecharacteristics have been determined by [employer] [place], [place]. It hasnot been cleared or approved by the U.S. Food and DrugAdministration. This assay has been validated pursuantto the CLIA regulations and is used for clinicalpurposes.THIS TEST WAS PERFORMED AT:[employer] [place] [address]GDCOVMFGINETTE WARREN MD,PHD 06/29/2025 10:5 5 AM EDT 06/29/2025 10:55 AM EDT Generic External Data Provider LAB BLOOD ORDERAB LES Final Result Performing Organization Address [facility]/ZIP Co de Phone Number [facility] [address] [place] [address] [phone] * Magnesium (06/29/2025 10:55 AM EDT) Pathologist [facility] Magnesium 2.2 1.6 - 2.6 mg/dL [facility] 06/29/2025 10:5 5 AM EDT 06/29/2025 10:55 AM EDT Generic External Data Provider LAB BLOOD ORDERAB LES Final Result Performing Organization Address [facility] Co de Phone Number [facility] [address] [place] [address] [phone] * Homocysteine (06/29/2025 10:55 AM EDT) Homocysteine 6.8 < or = 11.0 umol/L [facility] Comment:Homocysteine is incr eased by functional deficiency offolate or vitamin B12. Testing for methylmalonic aciddifferentiates between these deficiencies. Other causesof increased homocysteine include renal failure, folateantagonists such as methotrexate and phenytoin, andexposure to nitrous oxide.Kendrick Downing et al., Kristie [employer]. 1999;131(5):331-9.THIS TEST WAS PERFORMED AT:[employer] [address] [address]MAAJDTREY MCELROY MD 06/29/2025 10:5 5 AM EDT 06/29/2025 10:55 AM EDT us Generic External Data Provider LAB BLOOD ORDERAB LES Final Result Performing Organization Address [facility] de Phone Number [facility] [address] [place] [phone] * Hemoglobin A1c (06/29/2025 10:55 AM EDT) Hemoglobin A1c 5.4 <6.0 % [facility] Comment:Hemoglobin A1C Refer ence Range Adults: 4.8 - 6.0 % Non diabetic: < 6.0 % Goal: < 7.0 %Additional Action Suggested: > 8.0 %Note: Hemoglobin A1c results are invalid for patients with abnormal amounts of HbF. Blood transfusions may impact the HbA1c concentration in the patient sample. Estimated Average Glucose 108 mg/dL [facility] Comment:eAG = Estimated ave rage glucose which is %A1C expressed asaverage glucose, using the formula of the A0Q-KbqclzsEendzgz Glucose study (ADAG), Diabetes Care, Vol.31,#8,May. 2007 06/29/2025 10:5 5 AM EDT 06/29/2025 10:55 AM EDT us Generic External Data Provider LAB BLOOD ORDERAB LES Final Result Performing Organization Address [facility] de Phone Number [facility] [address] [place] [phone] * (ABNORMAL) Ferritin (06/29/2025 10:55 AM EDT) Ferritin 500(H) 10 - 250 ng/mL [facility] 06/29/2025 10:5 5 AM EDT 06/29/2025 10:55 AM EDT us Generic External Data Provider LAB BLOOD ORDERAB LES Final Result Performing Organization Address City/[facility] Co de Phone Number [facility] [address] [place] [phone] * (ABNORMAL) Prothrombin Time-INR (06/12/2025 11:13 AM EDT) Prothrombin Time 12.5(H) 10.9 - 12.4 SEC [facility] INTERNATIONAL NORM RATIO 1.1 0.9 - 1.1 [facility] Comment:INTERNATIONAL NORMAL IZED RATIO (INR) REFERENCE [...] ORDERAB LES Final Result Performing Organization Address [facility] Co de Phone Number [facility] [address] [place] [address] [phone] * CBC (06/12/2025 11:13 AM EDT) White Blood Count 7.0 4.8 - 10.8 X10*3/uL [facility] Red Blood Count 4.69 4.20 - 5.50 X10*6/uL [facility] Hemoglobin 13.9 12.0 - 16.0 g/dl [facility] Hematocrit 42.9 37.0 - 47.0 % [facility] Mean Corpuscular Volume 91.5 80.0 - 98.0 fL [facility] Mean Corpuscular Hemoglobin 29.6 27.0 - 33.0 pg [facility] Mean Corpuscular HGB Conc 32.4 31.0 - 35.0 g/dl [facility] Red Cell Distribution Width 12.5 11.0 - 16.0 % [facility] Platelet Count 290 160 - 400 X10*3/uL [facility] Mean Platelet Volume 10.3 9.4 - 12.3 fL [facility] NRBC Pct Auto 0.0 0.0 - 0.2 /100WBC [facility] NRBC Abs Auto 0.000 0.0 - 0.012 X10*3/uL [facility] 06/12/2025 11:1 3 AM EDT 06/12/2025 11:49 AM EDT us Generic External Data Provider LAB BLOOD ORDERAB LES Final Result [facility] [address] [place] [phone] * (ABNORMAL) Comprehensive Metabolic Panel (06/12/2025 12:00 AM EDT) Sodium 143 135 - 145 mmol/L [facility] Potassium 4.0 3.3 - 5.1 mmol/L [facility] Chloride 109(H) 96 - 108 mmol/L [facility] Carbon Dioxide 26 22 - 29 mmol/L [facility] Anion Gap 12 12 - 20 [facility] Urea Nitrogen (BUN) 12 9 - 16 mg/dL [facility] Creatinine, Serum 0.79 0.5 - 1.4 mg/dL [facility] Estimated Glomerular Filt Rate >60 [facility] Comment:Chronic Kidney Disea se: Estimated GFR < 60 mL/min/1.95b1Skcccr Kidney Disease: Estimated GFR < 15 mL/min/1.73m2 Glucose 85 60 - 115 mg/dL [facility] Calcium 9.1 8.4 - 10.2 mg/dL [facility] Bilirubin, Total 0.4 0.0 - 1.0 mg/dL [facility] Aspartate Amino Transferase 40(H) 5 - 31 U/L [facility] Alanine Aminotransferase 64(H) 0 - 31 U/L [facility] Total Protein 7.3 6.5 - 8.0 g/dL [facility] Albumin Level 4.2 3.5 - 5.0 g/dL [facility] Alkaline Phosphatase 76 39 - 117 U/L [facility] 06/12/2025 06/12/2025 us Generic External Data Provider LAB BLOOD ORDERAB LES Final Result Performing Organization Address City/State/[facility] Co de Phone Number [facility] [address] [place] [phone] * US Abdomen Comp w elastography (05/10/2025 8:21 AM EDT) Anatomical Region Laterality Modality Abdomen Ultrasound 05/10/2025 8:21 AM EDT Narrative 05/10/2025 9:04 AM EDT [address] [address] Ultrasound Report Signed Patient: Nisha Brown MR# : [id number] : 1985 Acct:[id number] Age/Sex: 39 / F ADM Date: 05/10/25 Loc: HO.US Attending Dr: Digna Torres MD Ordering Physician: Digna Torres MD Date of Service: 05/10/25 Procedure(s): US abdomen comp w elastography Accession Number(s): [id number] cc: Jairo Bingham MD; Digna Torres MD [...] of Radiologists in Ultrasound Liver Stiffness Thresholds (2020): LIVER STIFFNESS THRESHOLDS: *Shear wave velocity less [...] by Aleks Berman MD in OV> 05/10/25 09 DD/ 0 TD/TT: 05/10/25 0848 Resin Coater: Procedure Note Donotuseinterpreter, Image - 05/10/2025 [place] [address] Ultrasound Report Signed Patient: Kiki Brown# : [id number] : 1985Acct:[id number] Age/Sex: 39 / FADM Date: 05/10/25 Loc: HO.US Attending Dr: Digna Torres MD Ordering Physician: Digna Torres MD Date of Service: 05/10/25 Procedure(s): US abdomen comp w elastography Accession Number(s): [id number] cc: aJiro Bingham MD; Digna Torres MD EXAMINATION: US [...] of Radiologists in Ultrasound Liver Stiffness Thresholds (2020): LIVER STIFFNESS THRESHOLDS: *Shear wave velocity less [...] MD 05/10/2025 09:01 AM EDT Dictated By: Alesk Berman MD Signed By: <Electronically signed by Aleks Berman MD in OV> 05/10/25 09 DD/ 0 TD/TT: 05/10/25 0848 Resin Coater: us [facility] External Provider IMG US PROCEDURES Final Result * Hepatitis Panel, General (03/30/2025 9:16 AM EDT) Hepatitis A IgM Nonreactive Nonreactive [facility] Comment:IgM antibodies to PFEIFFER V not detected; does not exclude earlyacute or recovered HAV infection. ~Hepatitis B Surface Antibody REACTIVE Nonreactive [facility] Comment:REACTIVE: > 11.99 mI U/mL Hepatitis B Core Antibody Nonreactive Nonreactive [facility] Hepatitis C Antibody Nonreactive Nonreactive [facility] Comment:Antibodies to HCV no t detected; does not exclude early acuteHCV infection. Hepatitis B Surface Ag Negative Negative [facility] Blood 03/30/2025 9:16 AM EDT 03/30/2025 11:37 AM EDT us Jairo Bingham MD LAB BLOOD ORDERABLES Fin al Result Performing Organization Address [facility]/ZIP Co de Phone Number [facility] [address] [place] [address] [phone] * HIV-1/2 Antigen and Antibodies, Fourth Generation, with Reflexes (03/30/2025 9:16 AM EDT) Pathologist [facility] HIV AB/AG Nonreactive Nonreactive [facility] Comment:HIV-1 p24 Ag and/or HIV-1/HIV-2 Ab not detected.A test result that is nonreactive does not exclude thepossibility of exposure to or infection with HIV-1 and/orHIV-2. Nonreactive results in this assay for individualswith prior exposure to HIV-1 and/or HIV-2 may be due toantigen and antibody levels that are below the limit ofdetection of this assay.The [employer] HIV Ag/Ab Combo assay result andsupplemental assay results should be interpreted inconjunction with the patient's clinical presentation,history and other laboratory results. If the results areinconsistent with clinical evidence, additional testing issuggested to confirm the result. Blood Venous blood specimen / Unknown 03/30/2025 9:16 AM EDT 03/30/2025 11:37 AM EDT us Jairo Bingham MD LAB BLOOD ORDERABLES Manjit jayne Result - Final Performing Organization Address City/[facility]/ZIP Co de Phone Number [facility] [address] [place] [address] [phone] * BI Mammogram Screening Tomosynthesis Bilateral (01/05/2025 2:00 PM EDT) Anatomical Region Laterality Modality Breast Bilateral Mammography 01/05/2025 2:00 PM EDT Narrative 01/14/2025 10:59 AM EDT [address] [place] [address] Mammography Report Signed Patient: Nisha Brown MR# : [id number] : 1985 Acct:[id number] Age/Sex: 39 / F ADM Date: 01/05/25 Loc: HO.MAMMO Attending Dr: Jairo Bingham MD Ordering Physician: Jairo Bingham MD Results: 2Be nign Findings Date of Service: 01/05/25 Follow Up: 1 Year From Orig inal Mammogram Procedure(s): MM tomosynthesis screening BI Accession Number(s): [id number] cc: Jairo Bingham MD EXAMINATION: MM SCREENING [...] 01/14/25 1057 DD/ 1400 TD/TT: 01/05/25 1415 Resin Coater: Procedure Note Donotuseinterpreter, Image - 01/14/[address] [place] [address] Mammography Report Signed Patient: Kiki Brown# : [id number] : 1985Acct:[id number] Age/Sex: 39 / FADM Date: 01/05/25 Loc: HO.MAMMO Attending Dr: Jairo Bingham MD Ordering Physician: Jairo Bingham MDResults: 2Be nign Findings Date of Service: 01/05/25Follow Up: 1 Year From Orig ina Mammogram Procedure(s): MM tomosynthesis screening BI Accession Number(s): [id number] cc: Jairo Bingham MD EXAMINATION: MM SCREENING [...] 01/14/25 1057 DD/ 1400 TD/TT: 01/05/25 1415 Resin Coater: Jairo Bingham MD [facility] BI PROCEDURES Edited Result - Final * HPV E6/E7 RFLX XENIA 16 18/45 (02/12/2022 3:42 PM EDT) HPV mRNA E6/E7 rflx Not Detected Not Detected [facility] Comment: Methodology: Eligibility Supervisor-Mediated Amplification This assay detects E6/E7 viral messenger RNA (mRNA) from 14 high-risk HPV types (16,18,31,33,35,39,45,51,52,56,58,59,66,68). The analytical performance characteristics of this assay have been determined by [employer]. The modifications have not been cleared or approved by the FDA. This assay has been validated pursuant to the CLIA regulations and is used for clinical purposes. For additional information, please refer to http://education.[employer]/faq/QWQ821f3 (This link if provided for information/ educational purposes only.) THIS TEST WAS PERFORMED AT: [facility] [address] [place] [address] [address]LO[address],[place] [address] TREY MCELROY MD 02/12/2022 3:42 PM EDT Harmony Sheldon HISTORICAL/NON ORDERABLE LABS Fi nal Result [facility] [address] * Hm Pap Smear (02/12/2022) Historical Provider HEALTH MAINTENANCE Final Result from Last 3 Months or Most Recently Relevant to Health Maintenance Insurance [facility] C3 Care Teams Benzene Washer Relationship Specialty Start Date End Date Jairo Bingham MD [address] [place] [phone] PCP - General Family Medicine 08/16/18
--- OUTSIDE RECORDS SUMMARY | 2025-07-18 09:11 | XMS_ITS | Encounter Summary ---
Author Organization [employer] Address [address] [facility] 7t [place] [address] Care Team Providers Care Marine Oil Terminal Superintendent Name Role Phone Yolanda Aaron MD Primary Care Provider + Cris Cabrera RN Unavailable [phone] Encounter Details Date Type Department Care Team (Late Contact Info) Description 07/20/2023 Orders Only [facility] [address] [place] [phone] Provider, MD Estelle Social History Tobacco Use [...] Department Care Team (Late Contact Info) Description 09/29/2025 11:15 AM EST Office Visit [facility] [address] [place] [address] Yolanda Aaron MD [address] [place] [address] documented as of this encounter Procedures Procedure [...] documented as of this encounter Care Teams Marine Oil Terminal Superintendent Relationship Specialty Start Date End Date Yolanda Aaron MD [address] [place] [address] PCP - General Family Medicine 08/16/18 Cris Cabrera RN [address] [place] [phone] Territory Account RepresentativeBusiness Support 04/25/24 08/03/24 documented as of this encounter
--- OUTSIDE RECORDS SUMMARY | 2025-07-18 09:11 | XMS_ITS | Encounter Summary ---
Author Organization [employer] Address [address] [facility] 7t [place] [address] Care Team Providers Care Fire Suppression Captain Name Role Phone Yolanda Aaron MD Primary Care Provider + Cris Cabrera RN Unavailable [phone] Encounter Details Date Type Department Care Team (Late Contact Info) Description 04/20/2023 Abstract [facility] [address] [place] [phone] Yolanda Aaron MD [address] [place] [address] [phone] Social History Tobacco Use Types Packs/Day Years [...] Description 09/29/2025 11:15 AM EST Office Visit [facility] [address] [place] [phone] Yolanda Aaron MD [address] [place] [address] documented as of this encounter Visit Diagnoses Not on filedocumented in this encounter Additional Health Concerns Assessment Noted Time PHQ-9 Depression Total Score: 13 023 2:39 PM EDT documented as of this encounter Care Teams Fire Suppression Captain Relationship Specialty Start Date End Date Yolanda Aaron MD [address] [place] [address] PCP - General Family Medicine 08/16/18 Cris Cabrera RN [address] [place] [phone] Soft Water MechanicCourt Manager 04/25/24 08/03/24 documented as of this encounter
--- OUTSIDE RECORDS SUMMARY | 2025-07-18 09:11 | XMS_ITS | Encounter Summary ---
Author Organization [employer] Address [address] [facility] 7t [place] [address] Care Team Providers Care Photographer Lithographic Name Role Phone Yolanda Aaron MD Primary Care Provider + Cris Cabrera RN Unavailable [phone] Encounter Details Date Type Department Care Team (Late st Contact Info) Description 12/24/2022 Orders Only [facility] [address] [place], [place] [phone] Yolanda Aaron MD [address] [place], [place] [phone] Social History Tobacco Use Types Packs/Day Years [...] Description 09/29/2025 11:15 AM EST Office Visit [facility] [address] [place] [phone] Yolanda Aaron MD [address] [place] [phone] documented as of this encounter Visit Diagnoses Not on filedocumented in this encounter Additional Health Concerns Assessment Noted Time PHQ-9 Depression Total Score: 11 023 11:41 AM EST documented as of this encounter Care Teams Photographer Lithographic Relationship Specialty Start Date End Date Yolanda Aaron MD [address] [place] [phone] PCP - General Family Medicine 08/16/18 Cris Cabrera RN [address] [place] [address] Chalker SolesMathematics Technician 04/25/24 08/03/24 documented as of this encounter
--- OUTSIDE RECORDS SUMMARY | 2025-07-18 09:11 | XMS_ITS | Encounter Summary ---
Author Organization [employer] Address [address] [facility] [address] [place] [address] Care Team Providers Care Valve Mechanic Name Role Phone Yolanda Aaron MD Primary Care Provider + Encounter Details Date Type Department Care Team (Latest Contact Info) Description 07/14/2025 Travel Social History Tobacco Use Types Packs/Day [...] Description 09/29/2025 11:15 AM EST Office Visit [facility] [address] [place] [address] Yolanda Aaron MD [address] [place] [address] documented as of this encounter Visit Diagnoses Not on filedocumented in this encounter Additional Health Concerns Assessment Noted Time PHQ-9 Depression Total Score: 22 025 11:10 AM EDT documented as of this encounter Care Teams Valve Mechanic Relationship Specialty Start Date End Date Yolanda Aaron MD [address] [place] [phone] PCP - General Family Medicine 08/16/18 documented as of this encounter
--- OUTSIDE RECORDS SUMMARY | 2025-07-18 09:11 | XMS_ITS | Encounter Summary ---
Author Organization [employer] Address [address] [facility] [address] 7[address] [place] [address] Care Team Providers Care Wool Fleece Grader Name Role Phone Yolanda Aaron MD Primary Care Provider + Cris Cabrera RN Unavailable [phone] Encounter Details Date Type Department Care Team (Late st Contact Info) Description 08/05/2023 Abstract [facility] [address] [place], [place] [phone] Yolanda Aaron MD [address] [place] [address] Social History Tobacco Use Types Packs/Day Years [...] Description 09/29/2025 11:15 AM EST Office Visit [facility] [address] [place] [address] Yolanda Aaron MD [address] [place] [address] documented as of this encounter Visit Diagnoses Not on filedocumented in this encounter Additional Health Concerns Assessment Noted Time PHQ-9 Depression Total Score: 023 3:33 PM EDT documented as of this encounter Care Teams Wool Fleece Grader Relationship Specialty Start Date End Date Yolanda Aaron MD [address] [place] [address] PCP - General Family Medicine 08/16/18 Cris Cabrera RN [address] [place] [phone] Training ManagerSound Person 04/25/24 08/03/24 documented as of this encounter
[2025-07-18 09:16] LABS: Cholesterol 136 mg/dL (<200); HDL Cholesterol 35 mg/dL (>40); Triglycerides 90 mg/dL (<150)
[2025-07-18 10:50] LABS: Reflex LDLD? No
== END 2025-07-18 08:15 | disposition home or self-care (01) ==
LOC: HO.LAB 08:14
PROVIDERS: PCP Internal Medicine; Visit Provider Nurse Practitioner Family
DX: R74.01 Elevation of levels of liver transaminase levels (principal); R10.2 Pelvic and perineal pain; E66.9 Obesity, unspecified; Z78.9 Other specified health status
CPT/HCPCS: 36415; 80061

== ENCOUNTER 2025-07-19 12:56 | Outpatient (REF) | payer MEDICAID, SELFPAY ==
[2025-07-19 16:25] LABS: Bacterial Vaginosis PCR NEGATIVE (Negative); Candida Group PCR DETECTED (Not Detect); Candida glab krusei PCR NOT DETECTED (Not Detect); Trichomonas vaginalis PCR NOT DETECTED (Not Detect)
[2025-07-19 16:49] LABS: CT PCR NOT DETECTED (Not Detect.); NG PCR NOT DETECTED (Not Detect.)
== END 2025-07-19 12:57 | disposition home or self-care (01) ==
LOC: HO.LNP 12:56
PROVIDERS: PCP Internal Medicine; Visit Provider Advanced Practice Midwife
DX: Z01.419 Encounter for gynecological examination (general) (routine) without abnormal findings (principal); N63.10 Unspecified lump in the right breast, unspecified quadrant; N64.4 Mastodynia; N39.3 Stress incontinence (female) (male); Z20.2 Contact with and (suspected) exposure to infections with a predominantly sexual mode of transmission; Z98.51 Tubal ligation status
CPT/HCPCS: 81003; 81025; 81515; 87491; 87591; 99212; 99396; 99459

== ENCOUNTER 2025-07-19 12:56 | Outpatient (AMB) | payer MEDICAID, SELFPAY ==
--- OUTSIDE RECORDS SUMMARY | 2025-07-14 15:00 | XMS_ITS | Encounter Summary ---
Author Organization [employer] Address [address] [facility] 7[address] [place] [address] Care Team Providers Care Explosive Operator Supervisor Name Role Phone Yolanda Aaron MD Primary Care Provider + Encounter Details Date Type Department Care Team (Late st Contact Info) Description 07/14/2025 3:00 PM EDT Office Visit [facility] [address] [place] [address] [facility] [address] [place] [address] Thiamine deficiency neuropathy (Primary Dx) Social History Tobacco Use Types Packs/Day Years [...] the past 12 months, has t he [employer], gas, oil or water company threatened to [...] Sign Reading Time Taken Comments Blood Pressure 100/58 07/14/2025 3:28 PM EDT Pulse 83 07/14/2025 3:28 PM EDT Temperature 36.2 C (97.1 F) 07/14/2025 3:28 PM EDT Respiratory Rate 20 07/14/2025 3:28 PM EDT Oxygen Saturation 99% 07/14/2025 3:28 PM EDT Inhaled Oxygen Concentration - - Weight 81.8 kg (180 lb 6.4 oz) 07/14/2025 3:28 P M EDT Height 157.5 cm (5' 2 ) 07/14/2025 3:28 PM EDT Body Mass Index 33 07/14/2025 3:28 PM EDT documented in this encounter Progress Notes * [facility], PHILOSOPHY INSTRUCTOR - 07/14/2025 3:00 PM EDT SUBJECTIVE: Nisha Bryan Cantu is a 40 y.o. year old female with hx of recurrent DVT/PE with known prothrombin mutation, AUD, hepatic cirrhosis, bipolar disorder, who presents for evaluation of LE numbness/tingling HPI Pt reports bilateral LE numbness/tingling/burning x several months. Symptoms also sometimes presentin hands. Denies falls, weakness or recent injury. Of note, patient follows with [facility] neurology for migraines. At last visit she brought up symptoms and initial lab work was ordered which showed low vitamin B1. Follows with [facility] neurology. Discussed concerns. Labwork ordered which showed low vitamin B1; (< 6nmol/L). Other labs- B6, lyme panel, B12, TSH, CBC all unremarkable. Inflammatory markers were elevated, which may be s/t chronic liver disease (she has upcoming abdominal MRI scheduled as well) Problem List[1] Review of Systems Constitutional: Negative for fever. HENT: Negative. Respiratory: Negative for shortness of breath. Cardiovascular: Negative for chest pain. Gastrointestinal: Negative for abdominal pain. Neurological: Negative for dizziness and weakness. OBJECTIVE: Vitals: 07/14/25 1528 BP: 100/58 Pulse: 83 Resp: 20 Temp: 97.1 ??F (36.2 ??C) SpO2: 99% Physical Exam Constitutional: General: She is not in acute distress. Appearance: Normal appearance. HENT: Head: Normocephalic and atraumatic. Right Ear: External ear normal. Left Ear: External ear normal. Nose: Nose normal. Eyes: Conjunctiva/sclera: Conjunctivae normal. Cardiovascular: Rate and Rhythm: Normal rate and regular rhythm. Heart sounds: Normal heart sounds. Pulmonary: Effort: Pulmonary effort is normal. Breath sounds: Normal breath sounds. Skin: General: Skin is warm and dry. Neurological: General: No focal deficit present. Mental Status: She is alert and oriented to person, place, and time. Deep Tendon Reflexes: Reflex Scores: Bicep reflexes are 0 on the right side and 0 on the left side. Brachioradialis reflexes are 0 on the right side and 0 on the left side. Patellar reflexes are 0 on the right side and 0 on the left side. Psychiatric: Mood and Affect: Mood normal. Behavior: Behavior normal. ASSESSMENT/PLAN - Bilateral numbness/tingling in extremities with hypoactive DTR's. Strength 5/5 throughout upper and lower extremities - Strong suspicion for thiamine deficiency neuropathy given neurology labs - START oral thiamine supplementation - Will also start daily multivitamin given history of AUD - Patient to continue to monitor symptoms; follow up as scheduled with neurology - 1 month f/u PCP, recheck levels - ED precautions to include weakness, dizziness, or significant worsening of symptoms - Patient verbalizes understanding and agrees to plan Diagnosis Plan 1. Thiamine deficiency neuropathy thiamine 100 MG tablet Multiple Vitamin (multivitamin) tablet Follow Up: 1 month, PCP Medications Ordered Prior to Encounter[2] Indonesian Translation: Provided by [facility] staff member [1] Patient Active Problem List Diagnosis Vitamin D deficiency Visual impairment Viral upper respiratory tract infection Stress incontinence of urine Smoker Pain in female pelvis Decreased vision in both eyes Herpes simplex ASCUS with positive high risk HPV cervical Arthritis of knee Anxiety disorder Major depressive disorder with psychotic features (CMS/HCC) Hyperglycemia Alcoholism (CMS/HCC) Tremor of both hands Alcoholic [...] (BMI) of 33.0 to 33.9 in adult 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 cloNIDine (Catapres) 0.1 MG tablet Take 1 tablet (0.1 mg) by mouth at bedtime. 90 tablet 3 divalproex (Depakote) 250 MG EC tablet Take 250 mg by mouth at bedtime. emtricitabine-tenofovir DF (Truvada) 200-300 MG tablet TAKE 1 TABLET BY MOUTH EVERY MORNING 30 tablet 2 ergocalciferol (Vitamin D2) 1.25 MG (69517 UT) capsule TAKE 1 CAPSULE BY MOUTH ONCE A WEEK 4 capsule 6 fluticasone (Flonase) 50 MCG/ACT nasal spray Administer 1 spray into each nostril Once per day. 48 g 0 hydrOXYzine HCl (Atarax) 25 MG tablet Take [...] facility-administered medications on file prior to visit. documented in this encounter Plan of Treatment Upcoming Encounters Date Type Department Care Team (Late st Contact Info) Description 09/29/2025 11:15 AM EST Office Visit [facility] [address] [place] [phone] Yolanda Aaron MD [address] [place] [phone] Scheduled Orders Name Type Priority Associated Diagnoses Orde r Schedule Vitamin B1 Lab Routine Thiamine deficiency neuropathy Expected: 07/17/2025 (Approximate), Expires: 07/17/2026 documented as of this encounter Visit Diagnoses Diagnosis Thiamine deficiency neuropathy- Primary [place] documented in this encounter Additional Health Concerns Assessment Noted Time PHQ-9 Depression Total Score: 025 11:10 AM EDT documented as of this encounter Care Teams Explosive Operator Supervisor Relationship Specialty Start Date End Date Yolanda Aaron MD [address] [place] [phone] PCP - General Family Medicine 08/16/18 documented as of this encounter
--- NOTE | 2025-07-19 12:39 | MHC.OFFVIS ---
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 complaining of pelvic pain and incontinence Retail Cosmetics Sales Beauty Advisor Required: No Retail Cosmetics Sales Beauty Advisor Services: Retail Cosmetics Sales Beauty Advisor Offered & Declined Information Interpreted: non-clinical & clinical Emergency Services Professional: Emergency Services Professional Present (jessica) Accompanied by: Self / Same As Patient Allergies Penicillins Adverse Reaction (Verified 06/28/25 11:50) vaginal itching Medication List - Last Reconciled 07/19/25 by Shannan Rapp LPN cholecalciferol (vitamin D3) 1,250 mcg PO QWEEK 12 days clindamycin phosphate 2% 1 appful vaginal DAILY diclofenac potassium 50 mg PO BID PRN 30 days galcanezumab-gnlm (Emgality Pen) 240 mg (2 mL) subcut ONCE 30 days linaclotide (Linzess) 72 mcg PO DAILY meclizine 50 mg PO BID PRN 30 days polyethylene glycol 3350 (Miralax) 17 grams PO DAILY PRN 30 days psyllium husk (Reguloid (psyllium husk)) 0.8 grams PO BEDTIME sumatriptan succinate 50 - 100 mg orally at onset of headache, may repeat in 2 hrs PRN; max 2 tabs per day or 4 tabs/week (may take with Tylenol) 30 days thiamine HCl (vitamin B1) 100 mg PO DAILY Is last menstrual period known: Yes Last menstrual period: 06/28/25 Post menopausal: No Patient : No Do you need a note to return to daycare/school/sports/work: No HPI Comments Details: Patient is a premenopausal woman presenting for annual examination. Ager Operator concerns: Pelvic pain and incontinence. Urine dip and UPT negative. Previously referred to pelvic floor therapy, she prefers not to do any therapy wants to see a provider, is concerned her cousin had Botox to treat for similar symptoms. Has right breast pain and feels her fibroadenoma has enlarged since her mammogram in December. Regular monthly menses. Currently is sexually active multiple partners. She denies vaginal itching or irritation. STI screening offered; she accepts. She tries to eat healthy and stays active with exercise. Denies family history of breast, ovarian or colon cancer. Last pap smear 2021, negative. [facility]amm[facility]24[facility] History (Updated 07/19/25 @ 14:05 by Harmony Sheldon CNM) Well woman exam with routine gynecological exam Breast lump Breast pain Pelvic pain Obesity UTI (urinary tract infection) Encounter for screening examination for sexually transmitted disease Bacterial vaginosis Vaginal itching Fibroadenoma Vaginal discharge Vaginal odor Fracture of orbital floor, blow-out, right, closed Problematic vaginal discharge Mass of right breast Microcalcification of left breast on mammography Abnormal Pap smear of cervix Pulmonary embolism Bilateral pulmonary embolism PE (pulmonary thromboembolism) DVT (deep venous thrombosis) Surgical History Hx of tubal ligation Hx of foot surgery Family History Maternal Aunt Breast cancer, Onset Age: 29 Colon cancer Brother Diabetes Sister Diabetes Maternal Aunt Metastasis from esophageal cancer Father Colon cancer Family/Other Colon cancer Mother Breast cancer Social History Household Members: Children Housing: Apartment Are you a primary health care liaison to a significant other at home: No Do you presently have visiting nurse or other home services: No Alcohol intake: never Patient Tobacco Use Status: Current everyday Tobacco user Tobacco use type: Cigarette Patient : No service: No Current occupational status: unemployed Gender identity: Female Female Reproductive History Menstrual Age of Menarche: 13 Date of last menstrual period: 06/28/25 control method: permanent sterilization Total pregnancies: 5 Number of Living Children: 5 Date of last pap smear: 02/13/22 History of abnormal pap smear: Yes Date of Mammogram: 01/05/25 History of abnormal mammogram: No Review of Systems Const All systems reviewed & are unremarkable except as noted in HPI and below Reports as per HPI Eyes Reports no additional complaints ENT Reports no additional complaints Card Reports no additional complaints Resp Reports no additional complaints GI Reports as per HPI and Reports no additional complaints Reports as per HPI Musc Reports no additional complaints Skin/Breast Reports as per HPI Neuro Reports no additional complaints Psych Reports no additional complaints Endo Reports no additional complaints Bhupendra/Lymph Reports no additional complaints Aller/Immun Reports no additional complaints Physical Exam Vital Signs: Last Vital Signs BP 104/64 07/19/25 13:19 BMI result Body Mass Index 30.9 Const General: cooperative, healthy appearing, no acute distress, well developed and alert Orientation/consciousness: patient oriented x3 HEENT Head: Yes normal to inspection Eyes General: appearance normal, both eyes and all related structures Neck Neck: Yes normal visual inspection Thyroid: Thyroid normal Chest Other: Right breast mass palpable 1 to 2 o'clock position firm rubbery consistency of fibroadenoma, tender to palpate Chest palpation & inspection: normal inspection of the chest and other (no puckering, dimpling, peau de orange, retraction, discharge, masses) Breast/axilla inspection: normal inspection of the breasts Breast/axilla palpation: normal palpation of the breasts Resp Effort & Inspection: normal respiratory effort GI Inspection: Yes normal to inspection Palpation (GI): Soft to palpation Rectal Exam - Female: deferred Other: Uncomfortable with speculum exam General: Yes bladder normal to palpation External Female Exam: normal external appearance and normal appearance of the urethra Speculum Exam - Vagina: normal appearance of the vagina, normal palpation and normal vaginal discharge Speculum Exam - Cervix: normal appearance of the cervix and normal palpation Bimanual exam- vagina & uterus: normal bimanual exam, normal palpation, uterine size normal, bladder normal to palpation, normal palpation and non-tender Bimanual Exam- Adnexa, other: no masses Skin General skin exam: no rashes or lesions noted Rashes: no rashes Neuro General: patient oriented x3 Cognition (Neuro): normal cognition Extrem General: Yes normal to inspection Psych Attitude: cooperative Thought process: Normal thought process present Results AMB Test Urine AMB Test Urine Negative Last Edit by Shannan Rapp LPN on 07/19/25 13:28 AMB Urinalysis, Automated UA Leukoctes Yuki/uL Last Edit by Shannan Rapp LPN on 07/19/25 13:29 UA Nitrite Last Edit by Shannan Rapp LPN on 07/19/25 13:29 UA Urobilinogen mg/dL Last Edit by Shannan Rapp LPN on 07/19/25 13:29 UA Protein mg/dL Last Edit by Shannan Rapp LPN on 07/19/25 13:29 UA pH 6.0 Last Edit by Shannan Rapp LPN on 07/19/25 13:29 UA Blood Clarence/uL Last Edit by Shannan Rapp LPN on 07/19/25 13:29 UA Specific Clymer 1.020 Last Edit by Shannan Rapp LPN on 07/19/25 13:29 UA Ketone Last Edit by Shannan Rapp LPN on 07/19/25 13:29 UA Bilirubin mg/dL Last Edit by Shannan Rapp LPN on 07/19/25 13:29 UA Glucose mg/dL Last Edit by Shannan Rapp LPN on 07/19/25 13:29 Results Reviewed Results Reviewed: Laboratory Last Values Tst Clinic Negative 07/19/25 13:27 Assessment & Plan Assessment & Plan (1) Well woman exam with routine gynecological exam: Code(s): Z01.419 - Encounter for gynecological examination (general) (routine) without abnormal findings Category: Medical Plan: Discussed: Current recommendations for pap smears per ASCCP guidelines. Breast awareness and periodic breast exams. Maintain a healthy lifestyle including a well balanced diet and routine exercise. Use condoms for STI and prevention. Patient verbalizes understanding and agrees to the plan of care. She was given opportunity to ask questions and all questions were answered to the best of my ability. RTO in one year for annual shell core and molding supervisor examination. This note is constructed using voice recognition software. While every effort has been made to ensure accuracy, police dispatcher errors may have been included. (2) Pelvic pain: Code(s): R10.2 - Pelvic and perineal pain Category: Medical Plan: Plan pelvic ultrasound, GC chlamydia and BV panel today follow up pending results in person. The patient expressed understanding and agreement with the plan of care. All of her questions and concerns were addressed to the best of my ability. (3) Breast lump: Code(s): N63.0 - Unspecified lump in unspecified breast Category: Medical Qualifiers: Laterality: right Breast mass location: unspecified quadrant Qualified Code(s): N63.10 - Unspecified lump in the right breast, unspecified quadrant Plan: Plan diagnostic mammogram and left breast ultrasound follow up pending results. The patient expressed understanding and agreement with the plan of care. All of her questions and concerns were addressed to the best of my ability. (4) Stress incontinence: Code(s): N39.3 - Stress incontinence (female) (male) Category: Medical Plan: Counseled regarding benefits of pelvic floor therapy for incontinence strength training, patient declines services. Referral placed to urology for follow up. The patient expressed understanding and agreement with the plan of care. All of her questions and concerns were addressed to the best of my ability. Plan This note is constructed using voice recognition software. While every effort has been made to ensure accuracy, police dispatcher errors may have been included. Total time I personally spent on visit and management separate concerns today: ?25 minutes. Time spent included review of pertinent office notes in the electronic health record; review of laboratory and imaging results; review of personal family medical history; performing physical exam; discussing diagnosis and plan of care with the patient; documenting the encounter in the EMR. Orders: Orders CT NG by PCR Vag/Cerv Today N63.0 - Unspecified lump in unspecified breast, N64.4 - Mastodynia, Z11.3 - Encounter for screening for infections with a predominantly sexual mode of transmission Bacterial Vaginosis Panel Today N63.0 - Unspecified lump in unspecified breast, N64.4 - Mastodynia, Z11.3 - Encounter for screening for infections with a predominantly sexual mode of transmission US pelvic and transvaginal Today R10.2 - Pelvic and perineal pain MM tomosynthesis diagnostic BI Today N63.0 - Unspecified lump in unspecified breast, N64.4 - Mastodynia, Z12.31 - Encounter for screening mammogram for malignant neoplasm of breast AMB HCG Urine Test Today Z32.02 - Encounter for test, result negative AMB Urinalysis Automated Today R10.2 - Pelvic and perineal pain US breast RT limited Today N63.0 - Unspecified lump in unspecified breast, N64.4 - Mastodynia Referrals Urology Referral N39.3 - Stress incontinence (female) (male) Coding Level of Care Code Est Pt Level 2 (51337) Est Pt Prev Care 40-64y(77161) Diagnoses Well woman exam with routine gynecological exam Z01.419 Pelvic pain R10.2 Mass of right breast, unspecified quadrant N63.10 Laterality: right Breast mass location: unspecified quadrant Stress incontinence N39.3
[2025-07-19 13:19] VITALS: BP 104/64; BMI 30.9
--- OUTSIDE RECORDS SUMMARY | 2025-07-19 15:21 | XMS_ITS | Encounter Summary ---
Author Organization [employer] Address [address] [facility] 7t [place] [address] Care Team Providers Care Paleology Teacher Name Role Phone Yolanda Aaron MD Primary Care Provider + Cris Cabrera RN Unavailable [phone] Encounter Details Date Type Department Care Team (Late st Contact Info) Description 12/01/2022 Abstract [facility] [address] [place], [place] [phone] Yolanda Aaron MD [address] [place], [place] [phone] Social History Tobacco Use Types Packs/Day Years [...] Description 09/29/2025 11:15 AM EST Office Visit [facility] [address] [place] [address] Yloanda Aaron MD [address] [place] [address] documented as of this encounter Visit Diagnoses Not on filedocumented in this encounter Additional Health Concerns Assessment Noted Time PHQ-9 Depression Total Score: 11 023 11:41 AM EST documented as of this encounter Care Teams Paleology Teacher Relationship Specialty Start Date End Date Yolanda Aaron MD [address] [place] [address] PCP - General Family Medicine 08/16/18 Cris Cabrera RN [address] [place] [address] Laboratory TechClient Integration Manager 04/25/24 08/03/24 documented as of this encounter
--- OUTSIDE RECORDS SUMMARY | 2025-07-19 15:21 | XMS_ITS | Encounter Summary ---
Author Organization [employer] Address [address] [facility] [address] 7[address] [place] [address] Care Team Providers Care Stencil Cutter Name Role Phone Yolanda Aaron MD Primary Care Provider + Encounter Details Date Type Department Care Team (Late st Contact Info) Description 07/18/2025 Orders Only GENERIC EXTERNAL DATA DEPARTMENT Provider, [...] Description 09/29/2025 11:15 AM EST Office Visit [facility] 230 [place] [address] Yolanda Aaron MD 230 [place] [address] documented as of this encounter Procedures Procedure Name Priority Date/Time Associated Diagnosis Comments LIPID PANEL WITH REFLEX TO DIRECT LDL Routine 07/18/2025 8:26 AM EDT documented in this encounter Results * (ABNORMAL) Lipid Panel with Reflex to Direct LDL (07/18/2025 8:26 AM EDT) Triglycerides 90 <150 mg/dL [facility] Comment:Desirable Triglyceri de: less than 150 mg/dLBorderline High Triglyceride 150-199 mg/dLHigh Triglyceride: 200-499 mg/dLVery High Triglyceride: greater than or equal to 5OO mg/dL Cholesterol 136 <200 mg/dL [facility] Comment:Desirable Cholestero l: less than 200 mg/dLBorderline High Cholesterol: 200-239 mg/dLHigh Cholesterol: greater than 239 mg/dL LDL Cholesterol Calculated 83 <100 mg/dL [facility] Comment:Desirable LDL: less than 100 mg/dLNear Optimal/Above Optimal LDL: 110- 129 mg/dLBorderline High LDL: 130-159 mg/dLHigh LDL: 160-189 mg/dLVery High LDL: greater than or equal to 190 mg/dL HDL Cholesterol 35(L) >40 mg/dL [facility] Comment:Desirable HDL: great er than 40 mg/dL Note: This HDL assay may give artificially low results in patients with liver disease. 07/18/2025 8:26 AM EDT 07/18/2025 8:26 AM EDT us Generic External Data Provider LAB BLOOD ORDERAB LES Final Result Performing Organization Address City/State/[place]UST Co de Phone Number [facility] [address] [place] [phone] documented in this encounter Visit Diagnoses Not on filedocumented in this encounter Additional Health Concerns Assessment Noted Time PHQ-9 Depression Total Score: 22 025 11:10 AM EDT documented as of this encounter Care Teams Stencil Cutter Relationship Specialty Start Date End Date Yolanda Aaron MD [address] [place] [phone] PCP - General Family Medicine 08/16/18 documented as of this encounter
--- OUTSIDE RECORDS SUMMARY | 2025-07-19 15:22 | XMS_ITS | Encounter Summary ---
Author Organization [employer] Address 75 [facility] 7t [place] [address] Care Team Providers Care Extracorporeal Circulation Specialist Name Role Phone Yolanda Aaron MD Primary Care Provider + Cris Cabrera RN Unavailable [phone] Encounter Details Date Type Department Care Team (Late st Contact Info) Description 12/24/2022 Orders Only [facility] 230 [place], [place] [phone] Yolanda Aaron MD 230 [place], [place] [phone] Social History Tobacco Use Types Packs/Day Years [...] 11:15 AM EST Office Visit [facility] [address] [place] [address] Yolanda Aaron MD [address] [place] [address] documented as of this encounter Visit Diagnoses Not on filedocumented in this encounter Additional Health Concerns Assessment Noted Time PHQ-9 Depression Total Score: 11 023 11:41 AM EST documented as of this encounter Care Teams Extracorporeal Circulation Specialist Relationship Specialty Start Date End Date Yolanda Aaron MD [address] [place] [address] PCP - General Family Medicine 08/16/18 Cris Cabrera RN [address] [place] [address] Structural Test EngineerHouse Superintendent 04/25/24 08/03/24 documented as of this encounter
--- OUTSIDE RECORDS SUMMARY | 2025-07-19 15:22 | XMS_ITS | Encounter Summary ---
Author Organization [employer] Address 75 [facility] 7t [place] [address] Care Team Providers Care Trophy Assembler Name Role Phone Yolanda Aaron MD Primary Care Provider + Cris Cabrera RN Unavailable [phone] Encounter Details Date Type Department Care Team (Late Contact Info) Description 04/20/2023 Abstract [facility] [address] [place] [phone] Yolanda Aaron MD [address] [place] [address] [phone] Social History Tobacco Use Types Packs/Day Years [...] 09/29/2025 11:15 AM EST Office Visit [facility] [address] [place] [phone] Yolanda Aaron MD 230 [place] [address] documented as of this encounter Visit Diagnoses Not on filedocumented in this encounter Additional Health Concerns Assessment Noted Time PHQ-9 Depression Total Score: 13 023 2:39 PM EDT documented as of this encounter Care Teams Trophy Assembler Relationship Specialty Start Date End Date Yolanda Aaron MD 230 [place] [address] PCP - General Family Medicine 08/16/18 Cris Cabrera RN [address] [place] [address] Supervisor BroadloomRoller Stainer 04/25/24 08/03/24 documented as of this encounter
--- OUTSIDE RECORDS SUMMARY | 2025-07-19 15:22 | XMS_ITS | Encounter Summary ---
Author Organization [employer] Address [address] [facility] [address] 7[address] [place] [address] Care Team Providers Care Rocket Engine Component Mechanic Name Role Phone Yolanda Aaron MD Primary Care Provider + Cris Cabrera RN Unavailable [phone] Encounter Details Date Type Department Care Team (Late st Contact Info) Description 08/05/2023 Abstract [facility] 230 [place], [place] [phone] Yolanda Aaron MD 230 [place] [address] Social History Tobacco Use Types Packs/Day Years [...] Description 09/29/2025 11:15 AM EST Office Visit [facility] [address] [place] [address] Yolanda Aaron MD [address] [place] [address] documented as of this encounter Visit Diagnoses Not on filedocumented in this encounter Additional Health Concerns Assessment Noted Time PHQ-9 Depression Total Score: 023 3:33 PM EDT documented as of this encounter Care Teams Rocket Engine Component Mechanic Relationship Specialty Start Date End Date Yolanda Aaron MD 230 [place] [address] PCP - General Family Medicine 08/16/18 Cris Cabrera RN [address] [place] [phone] Train Brake OperatorCommunication Instructor 04/25/24 08/03/24 documented as of this encounter
--- OUTSIDE RECORDS SUMMARY | 2025-07-19 15:22 | XMS_ITS | Encounter Summary ---
Author Organization [employer] Address [address] [facility] [address] 7t [place] [address] Care Team Providers Care Fish Rod Maker Name Role Phone Yolanda Aaron MD Primary Care Provider + Encounter Details Date Type Department Care Team (Latest Contact Info) Description 05/25/2025 Results Follow-Up [facility] 230 [place] [address] Yolanda Aaron MD 230 [place] [address] US Abdomen Comp w elastography Social History [...] Description 09/29/2025 11:15 AM EST Office Visit [facility] [address] [place] [address] Yolanda Aaron MD 230 [place] [address] documented as of this encounter Visit Diagnoses Not on filedocumented in this encounter Additional Health Concerns Assessment Noted Time PHQ-9 Depression Total Score: 22 025 11:10 AM EDT documented as of this encounter Care Teams Fish Rod Maker Relationship Specialty Start Date End Date Yolanda Aaron MD [address] [place] [address] PCP - General Family Medicine 08/16/18 documented as of this encounter
--- OUTSIDE RECORDS SUMMARY | 2025-07-19 15:22 | XMS_ITS | Encounter Summary ---
Author Organization [employer] Address 75 [facility] 7 [place] [address] Care Team Providers Care Heel Layer Name Role Phone Yolanda Aaron MD Primary Care Provider + Cris Cabrera RN Unavailable [phone] Encounter Details Date Type Department Care Team (Late Contact Info) Description 07/20/2023 Orders Only [facility] [address] [place] [phone] Provider, MD Estelle Social History Tobacco Use [...] Description 09/29/2025 11:15 AM EST Office Visit [facility] [address] [place] [address] Yolanda Aaron MD 230 [place] [address] documented as of this encounter Procedures Procedure [...] documented as of this encounter Care Teams Heel Layer Relationship Specialty Start Date End Date Yolanda Aaron MD 230 [place] [address] PCP - General Family Medicine 08/16/18 Cris Cabrera RN [address] [place] [address] Domestic Violence CounselorPower Shear Operator 04/25/24 08/03/24 documented as of this encounter
--- OUTSIDE RECORDS SUMMARY | 2025-07-19 15:22 | XMS_ITS | Encounter Summary ---
Author Organization [employer] Address [address] [facility] [address] 7t [place] [address] Care Team Providers Care Leather Polisher Name Role Phone Yolanda Aaron MD Primary [...] Description 09/29/2025 11:15 AM EST Office Visit [facility] 230 [place] [address] Yolanda Aaron MD 230 [place] [address] documented as of this encounter Visit Diagnoses Not on filedocumented in this encounter Additional Health Concerns Assessment Noted Time PHQ-9 Depression Total Score: 22 025 11:10 AM EDT documented as of this encounter Care Teams Leather Polisher Relationship Specialty Start Date End Date Yolanda Aaron MD [address] [place] [address] PCP - General Family Medicine 08/16/18 documented as of this encounter
--- OUTSIDE RECORDS SUMMARY | 2025-07-19 15:22 | XMS_ITS | Clinical Summary ---
Author Organization [employer] Address [address] [place] [address] Care Team Providers Care Statistical Machine Servicer Name Role Phone Jairo Bingham MD Primary Care Provider + Allergies No known active allergies Medications * This document contains information received from the source organization and may not represent a complete record from that organization. Calcium Carb-Cholecalci ferol 500-10 MG-MCG tablet Take 1 tablet by mouth in the morning and at bedtime. 2 Active ergocalciferol (Vitamin D2) 1.25 MG (25159 UT) capsule TAKE 1 CAPSULE BY MOUTH [...] referred to AUD program. Fu closely with cost recovery technician Hep B up to date Varicose veins [...] that she can drop of att he director of front office and request a referral at [facility] [...] [facility] for Support and Recovery program. She declines [...] 500-700s, she has been reluctant to continue correction anticoagulation. F yearly with hematology Re consutl [...] is able to initiate care with her [facility] agency prescriber, she will go ahead and do that instead. She should call [facility] and/or consult her PCP with any [...] close fu with mental health provider and cost recovery technician Counseled to cut down etoh use Pt [...] Plan (12/03/2022 11:27 AM EST): FU by MANAGER WATER. Pat for PAP and pelvic US Coming [...] organization. Date Type Department Care Team Description 07/18/2025 Orders Only GENERIC EXTERNAL DATA DEPARTMENT Provider, Generic External Data 07/14/2025 3:00 PM EDT Office Visit [facility] [address] [place] [address] Karen, Kaci, DIRECTOR OF DATABASE MARKETING Thiamine deficiency neuropathy (Primary Dx) 07/14/2025 Travel 07/11/2025 Telephone [facility] [address] [place] [address] Kriss Montes RN appt. reschedule 06/29/2025 Orders Only GENERIC EXTERNAL DATA DEPARTMENT Provider, Generic External Data 06/12/2025 Orders Only GENERIC EXTERNAL DATA DEPARTMENT Provider, Generic External Data 05/25/2025 Results Follow-Up [facility] [address] [place] [address] Jairo Bingham MD US Abdomen Comp w elastography 05/10/2025 Orders Only [facility] External Provider, [facility] 04/19/2025 Telephone [facility] [address] [place] [address] Guillermina Flores RN from Last 3 Months [...] Description 09/29/2025 11:15 AM EST Office Visit [facility] [address] [place] [phone] Jairo Bingham MD [address] [place], [place] [phone] Health Maintenance Due Date Last Done Comments Alcohol/Substance Use Screening 1997 Family Planning (PISQ) 2000 HPV Vaccines (1 - 3-dose series) 2000 DTaP/Tdap/Td Vaccines (1 - Tdap) 2004 Hepatitis A Vaccines (1 of 2 - Risk 2-dose series) 2004 Pneumococcal Vaccine: Pediatrics (0 to 5 Years) and At-Risk Patients (6 to 49) Years (1 of 2 - PCV) 2004 SDOH Screening 04/04/2025 04/04/2024 COVID-19 Vaccine ( - season) 2025 07/28/2022, 07/28/2022 Influenza Vaccine (#1) 2025 Depression Monitoring 09/16/2025 03/16/2025, 025 Mammogram 01/05/2026 01/05/2025, 0 04/2024, 12/25/2022, Additional history exists Disability Screening 03/16/2026 03/16/2025 Tobacco Screening 07/17/2026 07/17/2025 Cervical Cancer Screening 02/12/2027 HPV/Cotest 02/12/2027 02/12/2022, 01/25, 10/05/2020, Additional history exists Pap Smear 02/12/2027 02/12/2022 Lipid Panel 07/18/2030 07/18/2025 Zoster Vaccines (1 of 2) 2035 RSV Patients and Patients Aged 60 years or older (1 - 1-dose 75+ series) 2060 Hepatitis B Vaccines Completed 08/26/2021, 07/22/2021, 03/23/2019, Additional history exists HIV Screening Completed 03/30/2025, 0 12/2024, 12/13/2024, Additional history exists Hepatitis C [...] DIRECT LDL Routine 07/18/2025 8:26 AM EDT VITAMIN B6 Routine 06/29/2025 10:55 AM EDT [...] Relevant to Health Maintenance Results * (ABNORMAL) Lipid Panel with Reflex to Direct LDL (07/18/2025 8:26 AM EDT) Triglycerides 90 <150 mg/dL [facility] Comment:Desirable Triglyceri de: less than 150 mg/dLBorderline High Triglyceride 150-199 mg/dLHigh Triglyceride: 200-499 mg/dLVery High Triglyceride: greater than or equal to 5OO mg/dL Cholesterol 136 <200 mg/dL [facility] Comment:Desirable Cholestero l: less than 200 mg/dLBorderline High Cholesterol: 200-239 mg/dLHigh Cholesterol: greater than 239 mg/dL LDL Cholesterol Calculated 83 <100 mg/dL [facility] Comment:Desirable LDL: less than 100 mg/dLNear Optimal/Above Optimal LDL: 110- 129 mg/dLBorderline High LDL: 130-159 mg/dLHigh LDL: 160-189 mg/dLVery High LDL: greater than or equal to 190 mg/dL HDL Cholesterol 35(L) >40 mg/dL [facility] Comment:Desirable HDL: great er than 40 mg/dL Note: This HDL assay may give artificially low results in patients with liver disease. 07/18/2025 8:26 AM EDT 07/18/2025 8:26 AM EDT us Generic External Data Provider LAB BLOOD ORDERAB LES Final Result [facility] [address] [place] [phone] * (ABNORMAL) Comprehensive Metabolic Panel, Fasting (06/29/2025 10:55 AM EDT) Sodium 143 135 - 145 mmol/L [facility] Potassium 4.1 3.3 - 5.1 mmol/L [facility] Chloride 109(H) 96 - 108 mmol/L [facility] Carbon Dioxide 25 22 - 29 mmol/L [facility] Anion Gap 13 12 - 20 [facility] Urea Nitrogen (BUN) 10 9 - 16 mg/dL [facility] Creatinine, Serum 0.73 0.5 - 1.4 mg/dL [facility] Estimated Glomerular Filt Rate >60 [facility] Comment:Chronic Kidney Disea se: Estimated GFR < 60 mL/min/1.88r3Haukze Kidney Disease: Estimated GFR < 15 mL/min/1.73m2 Glucose Fasting 79 60 - 99 mg/dL [facility] Calcium 8.9 8.4 - 10.2 mg/dL [facility] Bilirubin, Total 0.5 0.0 - 1.0 mg/dL [facility] Aspartate Amino Transferase 65(H) 5 - 31 U/L [facility] Alanine Aminotransferase 84(H) 0 - 31 U/L [facility] Total Protein 7.3 6.5 - 8.0 g/dL [facility] Albumin Level 4.1 3.5 - 5.0 g/dL [facility] Alkaline Phosphatase 77 39 - 117 U/L [facility] 06/29/2025 10:5 5 AM EDT 06/29/2025 10:55 AM EDT Generic External Data Provider LAB BLOOD ORDERAB LES Final Result Performing Organization Address [facility]/ZIP Co de Phone Number [facility] [address] [place] [phone] * Vitamin B12 (Cobalamin) and Folate Panel, Serum (06/29/2025 10:55 AM EDT) Vitamin B12 473 200 - 900 pg/mL [facility] Comment:NORMAL 200-900 PG/ML INDETERMINATE 160-199 PG/ML DEFICIENT < 160 PG/ML Folate 9.3 > or = 4.0 ng/mL [facility] Comment:Reference Values:> o r = 4.0 ng/mL< 4.0 ng/mL suggests folate deficiency Methotrexate, aminopterin and folinic acid(leucovorin) are chemotherapeutic agents whose molecularstructures are similar to folate; therefore, the Architectfolate assay cannot be used for patients using these drugs. 06/29/2025 10:5 5 AM EDT 06/29/2025 10:55 AM EDT Generic External Data Provider LAB BLOOD ORDERAB LES Final Result Performing Organization Address [facility] Co de Phone Number [facility] [address] [place] [address] [phone] * TSH with Reflex to Free T4 (06/29/2025 10:55 AM EDT) TSH reflex Free T4 1.34 0.32 - 4.0 uIU/mL [facility] 06/29/2025 10:5 5 AM EDT 06/29/2025 10:55 AM EDT Generic External Data Provider LAB BLOOD ORDERAB LES Final Result Performing Organization Address [facility] Co de Phone Number [facility] [address] [place] [phone] * Lyme Disease Ab with Reflex to Blot (IgG, IgM) (06/29/2025 10:55 AM EDT) [facility] Lyme Antibody Screen <0.90 index [facility] Comment:Index Interpretation ----- < 0.90 Negative [...] when erythemamigrans is apparent.THIS TEST WAS PERFORMED AT:[employer] [place] [id number] MCELROY MD Lyme Blot [facility] 06/29/2025 10:5 5 AM EDT 06/29/2025 10:55 AM EDT Generic External Data Provider LAB BLOOD ORDERAB LES Final Result Performing Organization Address City/[facility]/ZIP Co de Phone Number [facility] [address] [place] [phone] * CBC auto differential (06/29/2025 10:55 AM EDT) [facility] White Blood Count 7.7 4.8 - 10.8 X10*3/uL [facility] Red Blood Count 4.60 4.20 - 5.50 X10*6/uL [facility] Hemoglobin 13.9 12.0 - 16.0 g/dl [facility] Hematocrit 41.4 37.0 - 47.0 % [facility] Mean Corpuscular Volume 90.0 80.0 - 98.0 fL [facility] Mean Corpuscular Hemoglobin 30.2 27.0 - 33.0 pg [facility] Mean Corpuscular HGB Conc 33.6 31.0 - 35.0 g/dl [facility] Red Cell Distribution Width 12.4 11.0 - 16.0 % [facility] Platelet Count 298 160 - 400 X10*3/uL [facility] Mean Platelet Volume 10.3 9.4 - 12.3 fL [facility] Neutrophils Percent Auto 67.2 45 - 73 % [facility] Imm Gran Pct Auto 0.3 0.0 - 0.4 % [facility] Lymphocytes Percent Auto 24.9 20 - 40 % [facility] Monocytes Percent Auto 6.6 2 - 11 % [facility] Eosinophils Percent Auto 0.5 0 - 4 % [facility] Basophils Percent Auto 0.5 0 - 2 % [facility] NRBC Pct Auto 0.0 0.0 - 0.2 /100WBC [facility] Neutrophils Absolute Auto 5.2 2.0 - 8.3 x10*3/uL [facility] Imm Gran Abs Auto 0.02 0.00 - 0.03 X10*3/uL [facility] Lymphocytes Absolute Auto 1.9 1.2 - 4.9 X10*3/uL [facility] Monocytes Absolute Auto 0.5 0.1 - 1.2 X10*3/uL [facility] Eosinophils Absolute Auto 0.0 0.0 - 0.4 X10*3/uL [facility] Basophils Absolute Auto 0.0 0.0 - 0.2 X10*3/uL [facility] NRBC Abs Auto 0.000 0.0 - 0.012 X10*3/uL [facility] 06/29/2025 10:5 5 AM EDT 06/29/2025 10:55 AM EDT us Generic External Data Provider LAB BLOOD ORDERAB LES Final Result Performing Organization Address City/[facility]/ZIP Co de Phone Number [facility] [address] [place] [phone] * Methylmalonic Acid (06/29/2025 10:55 AM EDT) Methylmalonic Acid 141 55 - 335 nmol/L [facility] Comment: Serum methylmalonic acid (MMA) levels [...] outcomes,such as neural tube defects and intrauterine growthrestriction.[employer] utilized Multi-Modal Decomposition(MMD) analysis to establish first and second trimester-specific MMA reference intervals in , as givenbelow:MMA, First trimester (<13 wks gestation): 58-167 nmol/LMMA, Second trimester (13-23 wks gestation):63-241 nmol/LThis test was developed and its analytical performancecharacteristics have been determined by [employer]. It has not been cleared or approved by theFDA. This assay has been validated pursuant to the CLIAregulations and is used for clinical purposes.THIS TEST WAS PERFORMED AT:[employer] [place] [phone] WARREN MD,PHD 06/29/2025 10:5 5 AM EDT 06/29/2025 10:55 AM EDT us Generic External Data Provider LAB BLOOD ORDERAB LES Final Result Performing Organization Address City/[facility]/ZIP Co de Phone Number [facility] [address] [place] [phone] * (ABNORMAL) Iron And Total Iron Binding Capacity (06/29/2025 10:55 AM EDT) Iron 90 30 - 160 mcg/dL [facility] Total Iron Binding Capacity 215(L) 228 - 428 mcg/dL [facility] Percent Iron Saturation 42 15 - 50 % [facility] Unsaturated Iron Binding 125 ug/dL [facility] 06/29/2025 10:5 5 AM EDT 06/29/2025 10:55 AM EDT us Generic External Data Provider LAB BLOOD ORDERAB LES Final Result Performing Organization Address [facility]/ZIP Co de Phone Number [facility] [address] [place] [phone] * Sed Rate by Modified Larisa (06/29/2025 10:55 AM EDT) Pathologist [facility] Erythrocyte Sedimentation Rate 18 0 - 20 MM/HR [facility] Comment:Patients with polycy themia and many hemoglobin abnormalitiesmay have depressed sed rates whereas patients with anemiamay have elevated sed rates. 06/29/2025 10:5 5 AM EDT 06/29/2025 10:55 AM EDT us Generic External Data Provider LAB BLOOD ORDERAB LES Final Result Performing Organization Address City/[facility]/ZIP Co de Phone Number [facility] [address] [place] [phone] * (ABNORMAL) C-reactive Protein (06/29/2025 10:55 AM EDT) C Reactive Protein 1.98(H) < or = 0.50 mg/dL [facility] 06/29/2025 10:5 5 AM EDT 06/29/2025 10:55 AM EDT us Generic External Data Provider LAB BLOOD ORDERAB LES Final Result Performing Organization Address City/[facility]/ZIP Co de Phone Number [facility] [address] [place] [phone] * (ABNORMAL) Vitamin B1 (06/29/2025 10:55 AM EDT) Pathologist [facility] Vitamin B1 <6(A) 8 - 30 nmol/L [facility] Comment:Vitamin supplementat ion within 24 hours prior toblood draw may affect the accuracy of the results.This test was developed and its analytical performancecharacteristics have been determined by [employer], [place]. It hasnot been cleared or approved by the U.S. Food and DrugAdministration. This assay has been validated pursuantto the CLIA regulations and is used for clinicalpurposes.THIS TEST WAS PERFORMED AT:[employer] [address] [id number] WARREN MD,PHD 06/29/2025 10:5 5 AM EDT 06/29/2025 10:55 AM EDT us Generic External Data Provider LAB BLOOD ORDERAB LES Final Result Performing Organization Address [facility] Co de Phone Number [facility] [address] [place] [phone] * Vitamin B6, Plasma (06/29/2025 10:55 AM EDT) [facility] Vitamin B6 5.3 2.1 - 21.7 ng/mL [facility] Comment:Vitamin supplementat ion within 24 hours prior toblood draw may affect the accuracy of the results.This test was developed and its analytical performancecharacteristics have been determined by [employer], [place]. It hasnot been cleared or approved by the U.S. Food and DrugAdministration. This assay has been validated pursuantto the CLIA regulations and is used for clinicalpurposes.THIS TEST WAS PERFORMED AT:[id number] [place] [address]OEOXJQQGINETTE WARREN MD,PHD 06/29/2025 10:5 5 AM EDT 06/29/2025 10:55 AM EDT us Generic External Data Provider LAB BLOOD ORDERAB LES Final Result Performing Organization Address [facility] Co de Phone Number [facility] [address] [place] [phone] * Magnesium (06/29/2025 10:55 AM EDT) Magnesium 2.2 1.6 - 2.6 mg/dL [facility] 06/29/2025 10:5 5 AM EDT 06/29/2025 10:55 AM EDT Generic External Data Provider LAB BLOOD ORDERAB LES Final Result Performing Organization Address [facility] de Phone Number [facility] [address] [place] [phone] * Homocysteine (06/29/2025 10:55 AM EDT) Homocysteine 6.8 < or = 11.0 umol/L [facility] Comment:Homocysteine is incr eased by functional deficiency offolate or vitamin B12. Testing for methylmalonic aciddifferentiates between these deficiencies. Other causesof increased homocysteine include renal failure, folateantagonists such as methotrexate and phenytoin, andexposure to nitrous oxide.Kendrick Downing et al., [employer]. 1999;131(5):331-9.THIS TEST WAS PERFORMED AT:[employer] [address] [id number] MCELROY MD 06/29/2025 10:5 5 AM EDT 06/29/2025 10:55 AM EDT us Generic External Data Provider LAB BLOOD ORDERAB LES Final Result Performing Organization Address [facility]/ZIP Co de Phone Number [facility] [address] [place] [phone] * Hemoglobin A1c (06/29/2025 10:55 AM EDT) Hemoglobin A1c 5.4 <6.0 % [facility] Comment:Hemoglobin A1C Refer ence Range Adults: 4.8 - 6.0 % Non diabetic: < 6.0 % Goal: < 7.0 %Additional Action Suggested: > 8.0 %Note: Hemoglobin A1c results are invalid for patients with abnormal amounts of HbF. Blood transfusions may impact the HbA1c concentration in the patient sample. Estimated Average Glucose 108 mg/dL [facility] Comment:eAG = Estimated ave rage glucose which is %A1C expressed asaverage glucose, using the formula of the P8G-YtsjghmNfltbxb Glucose study (ADAG), Diabetes Care, Vol.31,#8,2007 06/29/2025 10:5 5 AM EDT 06/29/2025 10:55 AM EDT us Generic External Data Provider LAB BLOOD ORDERAB LES Final Result Performing Organization Address City/[facility]/ZIP Co de Phone Number [facility] [address] [place] [phone] * (ABNORMAL) Ferritin (06/29/2025 10:55 AM EDT) Ferritin 500(H) 10 - 250 ng/mL [facility] 06/29/2025 10:5 5 AM EDT 06/29/2025 10:55 AM EDT us Generic External Data Provider LAB BLOOD ORDERAB LES Final Result Performing Organization Address [facility] Co de Phone Number [facility] [address] [place] [phone] * (ABNORMAL) Prothrombin Time-INR (06/12/2025 11:13 AM EDT) Prothrombin Time 12.5(H) 10.9 - 12.4 SEC [facility] INTERNATIONAL NORM RATIO 1.1 0.9 - 1.1 [facility] Comment:INTERNATIONAL NORMAL IZED RATIO (INR) REFERENCE [...] Provider LAB BLOOD ORDERAB LES Final Result [facility] [address] [place] [phone] * CBC (06/12/2025 11:13 AM EDT) White Blood Count 7.0 4.8 - 10.8 X10*3/uL [facility] Red Blood Count 4.69 4.20 - 5.50 X10*6/uL [facility] Hemoglobin 13.9 12.0 - 16.0 g/dl [facility] Hematocrit 42.9 37.0 - 47.0 % [facility] Mean Corpuscular Volume 91.5 80.0 - 98.0 fL [facility] Mean Corpuscular Hemoglobin 29.6 27.0 - 33.0 pg [facility] Mean Corpuscular HGB Conc 32.4 31.0 - 35.0 g/dl [facility] Red Cell Distribution Width 12.5 11.0 - 16.0 % [facility] Platelet Count 290 160 - 400 X10*3/uL [facility] Mean Platelet Volume 10.3 9.4 - 12.3 fL [facility] NRBC Pct Auto 0.0 0.0 - 0.2 /100WBC [facility] NRBC Abs Auto 0.000 0.0 - 0.012 X10*3/uL [facility] 06/12/2025 11:1 3 AM EDT 06/12/2025 11:49 AM EDT us Generic External Data Provider LAB BLOOD ORDERAB LES Final Result [facility] [address] [place] [phone] * (ABNORMAL) Comprehensive Metabolic Panel (06/12/2025 12:00 AM EDT) Sodium 143 135 - 145 mmol/L [facility] Potassium 4.0 3.3 - 5.1 mmol/L [facility] Chloride 109(H) 96 - 108 mmol/L [facility] Carbon Dioxide 26 22 - 29 mmol/L [facility] Anion Gap 12 12 - 20 [facility] Urea Nitrogen (BUN) 12 9 - 16 mg/dL [facility] Creatinine, Serum 0.79 0.5 - 1.4 mg/dL [facility] Estimated Glomerular Filt Rate >60 [facility] Comment:Chronic Kidney Disea se: Estimated GFR < 60 mL/min/1.46i5Ivawuv Kidney Disease: Estimated GFR < 15 mL/min/1.73m2 Glucose 85 60 - 115 mg/dL [facility] Calcium 9.1 8.4 - 10.2 mg/dL [facility] Bilirubin, Total 0.4 0.0 - 1.0 mg/dL [facility] Aspartate Amino Transferase 40(H) 5 - 31 U/L [facility] Alanine Aminotransferase 64(H) 0 - 31 U/L [facility] Total Protein 7.3 6.5 - 8.0 g/dL [facility] Albumin Level 4.2 3.5 - 5.0 g/dL [facility] Alkaline Phosphatase 76 39 - 117 U/L [facility] 06/12/2025 06/12/2025 us Generic External Data Provider LAB BLOOD ORDERAB LES Final Result [facility] [address] [place] [phone] * US Abdomen Comp w elastography (05/10/2025 8:21 AM EDT) Anatomical Region Laterality Modality Abdomen Ultrasound 05/10/2025 8:21 AM EDT Narrative 05/10/2025 9:04 AM EDT [address] [address] Ultrasound Report Signed Patient: Nisha Brown MR# : [id number] : 1985 Acct:[id number] Age/Sex: 39 / F ADM Date: 05/10/25 Loc: HO.US Attending Dr: Digna Torres MD Ordering Physician: Digna Torres MD Date of Service: 05/10/25 Procedure(s): US abdomen comp w elastography Accession Number(s): [id number] cc: Jairo Bingham MD; Digna Torres MD [...] Berman MD in OV> 05/10/25 09 DD/ 0821 TD/TT: 05/10/25 0848 Skein Drier: Procedure Note Donotuseinterpreter, Image - 05/10/2025 [place] [address] Ultrasound Report Signed Patient: Kiki Brown# : [id number] : 1985Acct:[id number] Age/Sex: 39 / FADM Date: 05/10/25 Loc: HO.US Attending Dr: Digna Torres MD Ordering Physician: Digna Torres MD Date of Service: 05/10/25 Procedure(s): US abdomen comp w elastography Accession Number(s): [id number] cc: Jairo Bingham MD; Digna Torres MD [...] MD in OV> 05/10/25900 DD/ 0 TD/TT: 05/10/25 0848 Skein Drier: [facility] External Provider IMG US PROCEDURES Final Result * Hepatitis Panel, General (03/30/2025 9:16 AM EDT) Hepatitis A IgM Nonreactive Nonreactive [facility] Comment:IgM antibodies to PFEIFFER V not detected; does not exclude earlyacute or recovered HAV infection. ~Hepatitis B Surface Antibody REACTIVE Nonreactive [facility] Comment:REACTIVE: > 11.99 mI U/mL Hepatitis B Core Antibody Nonreactive Nonreactive [facility] Hepatitis C Antibody Nonreactive Nonreactive [facility] Comment:Antibodies to HCV no t detected; does not exclude early acuteHCV infection. Hepatitis B Surface Ag Negative Negative [facility] Blood 03/30/2025 9:16 AM EDT 03/30/2025 11:37 AM EDT Jairo Bingham MD LAB BLOOD ORDERABLES Fin al Result [facility] [address] [place] [phone] * HIV-1/2 Antigen and Antibodies, Fourth Generation, with Reflexes (03/30/2025 9:16 AM EDT) HIV AB/AG Nonreactive Nonreactive [facility] Comment:HIV-1 p24 Ag and/or HIV-1/HIV-2 Ab not detected.A test result that is nonreactive does not exclude thepossibility of exposure to or infection with HIV-1 and/orHIV-2. Nonreactive results in this assay for individualswith prior exposure to HIV-1 and/or HIV-2 may be due toantigen and antibody levels that are below the limit ofdetection of this assay.The O[employer] HIV Ag/Ab Combo assay result andsupplemental assay results should be interpreted inconjunction with the patient's clinical presentation,history and other laboratory results. If the results areinconsistent with clinical evidence, additional testing issuggested to confirm the result. Blood Venous blood specimen / Unknown 03/30/2025 9:16 AM EDT 03/30/2025 11:37 AM EDT us Jairo Bingham MD LAB BLOOD ORDERABLES Manjit jayne Result - Final [facility] [address] [place] [phone] * BI Mammogram Screening Tomosynthesis Bilateral (01/05/2025 2:00 PM EDT) Anatomical Region Laterality Modality Breast Bilateral Mammography 01/05/2025 2:00 PM EDT Narrative 01/14/2025 10:59 AM EDT [facility] [address] [place] [address] Mammography Report Signed Patient: Nisha Brown MR# : [id number] : 1985 Acct:[id number] Age/Sex: 39 / F ADM Date: 01/05/25 Loc: RAVI Attending Dr: Jairo Bingham MD Ordering Physician: Jairo Bingham MD Results: 2Be nign Findings Date of Service: 01/05/25 Follow Up: 1 Year From Orig ina Mammogram Procedure(s): MM tomosynthesis screening BI Accession Number(s): [id number] cc: Jairo Bingham MD EXAMINATION: MM SCREENING [...] 01/14/25 1057 DD/ 1400 TD/TT: 01/05/25 1415 Skein Drier: Procedure Note Donotuseinterpreter, Image - 01/14/2025 Daniel [facility] [address] [place], [place] [address] Mammography Report Signed Patient: Kiki Brown# : [id number] : 1985Acct:[id number] Age/Sex: 39 / FADM Date: 01/05/25 Loc: HO.MAMMO Attending Dr: Jairo Bingham MD Ordering Physician: Jairo Bingham MDResults: 2Be nign Findings Date of Service: 01/05/25Follow Up: 1 Year From Orig ina Mammogram Procedure(s): MM tomosynthesis screening BI Accession Number(s): [id number] cc: Jairo Bingham MD EXAMINATION: MM SCREENING [...] 01/14/25 1057 DD/ 1400 TD/TT: 01/05/25 1415 Skein Drier: Jairo Bingham MD [facility] PROCEDURES Edited Result - Final * HPV E6/E7 RFLX XENIA 16 18/45 (02/12/2022 3:42 PM EDT) HPV mRNA E6/E7 rflx Not Detected Not Detected [facility] Comment: Methodology: Electrical Continuity Inspector-Mediated Amplification This assay detects E6/E7 viral messenger RNA (mRNA) from 14 high-risk HPV types (16,18,31,33,35,39,45,51,52,56,58,59,66,68). The analytical performance characteristics of this assay have been determined by [employer]. The modifications have not been cleared or approved by the FDA. This assay has been validated pursuant to the CLIA regulations and is used for clinical purposes. For additional information, please refer to http://education.[employer]/faq/LHR019d7 (This link if provided for information/ educational purposes only.) THIS TEST WAS PERFORMED AT: [facility] [address] [place] [address] [address] [address] TREY MCELROY MD 02/12/2022 3:42 PM EDT us Harmony Sheldon HISTORICAL/NON ORDERABLE LABS Fi nal Result [facility] [address] [place] [address] * Pap Smear (02/12/2022) Historical Provider HEALTH MAINTENANCE Final Result from Last 3 Months or Most Recently Relevant to Health Maintenance [facility] Care Teams Statistical Machine Servicer Relationship Specialty Start Date End Date Jairo Bingham MD [address] [place] [phone] PCP - General Family Medicine 08/16/18
== END 2025-07-19 14:55 | disposition home or self-care (01) ==
LOC: HO.HWS 12:56
PROVIDERS: PCP Internal Medicine; Visit Provider Advanced Practice Midwife
DX: Z01.419 Encounter for gynecological examination (general) (routine) without abnormal findings (principal); R10.2 Pelvic and perineal pain; N63.10 Unspecified lump in the right breast, unspecified quadrant; N39.3 Stress incontinence (female) (male); Z32.02 Encounter for pregnancy test, result negative
CPT/HCPCS: 99212; 99396; 99459

== ENCOUNTER 2025-08-09 13:10 | Outpatient (AMB) | payer MEDICAID, SELFPAY ==
--- NOTE | 2025-08-09 13:13 | A.OFFVIS_ITS ---
Vital Signs 08/09/25 13:16 Height 5 ft 4 in Weight 180 lb BMI 30.9 BP 100/62 Intake Visit Reasons: vag inf Research Physicist: Research Physicist Present (Maggy) Is last menstrual period known: Yes Last menstrual period: 07/27/25 HPI Comments Details: Patient is here today for vaginal odor, pelvic pain, burning on the outside with urination for two weeks. Tried Monistat, did not help, last dose applied 1 day ago. [facility] Medical History Pelvic inflammatory disease (PID) Well woman exam with routine gynecological exam Breast lump Breast pain Pelvic pain Obesity UTI (urinary tract infection) Encounter for screening examination for sexually transmitted disease Bacterial vaginosis Vaginal itching Fibroadenoma Vaginal discharge Vaginal odor Fracture of orbital floor, blow-out, right, closed Problematic vaginal discharge Mass of right breast Microcalcification of left breast on mammography Abnormal Pap smear of cervix Pulmonary embolism Bilateral pulmonary embolism PE (pulmonary thromboembolism) DVT (deep venous thrombosis) Surgical History Hx of tubal ligation Hx of foot surgery Family History Maternal Aunt Breast cancer, Onset Age: 29 Colon cancer Brother Diabetes Sister Diabetes Maternal Aunt Metastasis from esophageal cancer Father Colon cancer Family/Other Colon cancer Mother Breast cancer Social History Household Members: Children Housing: Apartment Are you a primary residential child care counselor to a significant other at home: No Do you presently have visiting nurse or other home services: No Alcohol intake: never Patient Tobacco Use Status: Current everyday Tobacco user Tobacco use type: Cigarette service: No Current occupational status: unemployed Gender identity: Female Female Reproductive History Menstrual Age of Menarche: 13 Date of last menstrual period: 07/27/25 Review of Systems Const All systems reviewed & are unremarkable except as noted in HPI and below Physical Exam Vital Signs: Last Vital Signs BP 100/62 08/09/25 13:16 BMI result Body Mass Index 30.9 Const General: cooperative, healthy appearing and no acute distress Orientation/consciousness: patient oriented x3 GI Inspection: Yes normal to inspection Palpation (GI): Soft to palpation and Other GI palpation findings present (Nontender) Rectal Exam - Female: visual inspection normal General: Yes bladder normal to palpation External Female Exam: normal appearance of the urethra Speculum Exam - Vagina: normal appearance of the vagina, normal palpation and normal vaginal discharge (Large amount of medication found in the vault) Speculum Exam - Cervix: normal appearance of the cervix, normal palpation and Cervical tenderness present Bimanual exam- vagina & uterus: normal bimanual exam, normal palpation, uterine size normal, bladder normal to palpation, normal palpation, uterine shape normal , Cervical tenderness present and non-tender Bimanual Exam- Adnexa, other: normal adnexae Neuro General: patient oriented x3 Office Meds ceftriaxone 500 mg solution for injection Performing Provider: Harmony Sheldon CNM Performing Location: [facility] Administered by: Shannan Rapp LPN on 08/09/25 14:19 Dose Route Admin Location Dispensed Lot Number Expiration Date [facility] 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 Tender 500 mg IM left gluteus maranda 500 mg [id number] 12/23/26 8924-0361- 11 [facility] Total Dispensed Waste 500 mg 0 % Results AMB Urinalysis, Automated UA Leukoctes 3 Yuki/uL Last Edit by Ana Yin [facility] on 08/09/25 13:44 UA Nitrite Negative Last Edit by Ana Yin [facility] on 08/09/25 13:44 UA Urobilinogen 0 mg/dL Last Edit by Ana Yin [facility] on 08/09/25 13:4 4 UA Protein 0 mg/dL Last Edit by Ana Yin [facility] on 08/09/25 13:44 UA pH 6.0 Last Edit by Ana Yin [facility] on 08/09/25 13:44 UA Blood 0 Clarence/uL Last Edit by Ana Yin [facility] on 08/09/25 13:44 UA Specific Sharon 1.025 Last Edit by Ana Yin [facility] on 08/09/25 13:44 UA Ketone Negative Last Edit by Ana Yin [facility] on 08/09/25 13:44 UA Bilirubin 0 mg/dL Last Edit by Ana Yin [facility] on 08/09/25 13:44 UA Glucose 0 mg/dL Last Edit by ELIA Tristan on 08/09/25 13:44 AMB Test Urine AMB Test Urine Negative Last Edit by ELIA Tristan on 08/09/25 16:31 Results Reviewed Results Reviewed: Laboratory Last Values Urine pH (Auto) 6.0 08/09/25 13:41 Specific Sharon (Auto) 1.025 08/09/25 13:41 Urine Protein (Auto) 0 mg/dL 08/09/25 13:41 Glucose (UA)(Auto) 0 mg/dL 08/09/25 13:41 Urine Ketones (Auto) Negative 08/09/25 13:41 Urine Blood (Auto) 0 Clarence/uL 08/09/25 13:41 Urine Nitrite (Auto) Negative 08/09/25 13:41 Urine Bilirubin (Auto) 0 mg/dL 08/09/25 13:41 Urine Urobilinogen (Auto) 0 mg/dL 08/09/25 13:41 Leukocyte Esterase (Auto) 3 Yuki/uL 08/09/25 13:41 Assessment & Plan Assessment & Plan (1) Pelvic pain: Comment: See notes below. Code(s): R10.2 - Pelvic and perineal pain Category: Medical (2) Pelvic inflammatory disease (PID): Code(s): N73.9 - Female pelvic inflammatory disease, unspecified Category: Medical Plan Discussed: PID treatment to include ceftriaxone and doxycycline for 2 weeks, recheck in next few days, then 2 weeks. Advised pelvic rest, comfort measures, warnings and when to call or go to the emergency room for immediate care reviewed. Counseled regarding medication use. We will hold off on Flagyl due to elevated liver enzymes for the time being. chlamydia and BV panel obtained await results for final plan of care. The patient expressed understanding and agreement with the plan of care. All of her questions and concerns were addressed to the best of my ability. This note is constructed using voice recognition software. While every effort has been made to ensure accuracy, customer service advocate errors may have been included. Orders: Orders Bacterial Vaginosis Panel Today N89.8 - Other specified noninflammatory disorders of vagina, R10.2 - Pelvic and perineal pain AMB HCG Urine Test Today R10.2 - Pelvic and perineal pain US pelvic and transvaginal Today N73.9 - Female pelvic inflammatory disease, unspecified, R10.2 - Pelvic and perineal pain AMB Urinalysis Automated Today R82.90 - Unspecified abnormal findings in urine AMB Ceftriaxone Injection Today N73.9 - Female pelvic inflammatory disease, unspecified CT NG by PCR Vag/Cerv Today N89.8 - Other specified noninflammatory disorders of vagina, R10.2 - Pelvic and perineal pain Urine Culture Today R10.2 - Pelvic and perineal pain Medications: New doxycycline hyclate 100 mg PO BID 28 caps 0RF 14 days Coding Level of Care Code Est Pt Level 4 (21217) Diagnoses Pelvic pain R10.2 Pelvic inflammatory disease (PID) N73.9
[2025-08-09 13:16] VITALS: BP 100/62; BMI 30.9
--- OUTSIDE RECORDS SUMMARY | 2025-08-09 16:50 | XMS_ITS | Encounter Summary ---
Author Organization [employer] Address [address] [facility] [address] [place] [address] Care Team Providers Care Zoology Professor Name Role Phone Yolanda Aaron MD Primary Care Provider + Cris Cabrera RN Unavailable Encounter Details Date Type Department Care Team (Late st Contact Info) Description 12/01/2022 Abstract [facility] [address] [place], [place] [phone] Yolanda Aaron MD [address] [place], [place] [phone] Social History Tobacco Use Types Packs/Day Years [...] 11:25 AM EDT Sexual Orientation Lesbian or Ehin 08/04/2023 11 :25 AM EDT Sexual Orientation [...] Description 09/29/2025 11:15 AM EST Office Visit [facility] [address] [place] [id number] Yolanda Aaron MD [address] [place] [phone] documented as of this encounter Visit Diagnoses Not on filedocumented in this encounter Additional Health Concerns Assessment Noted Time PHQ-9 Depression Total Score: 11 023 11:41 AM EST documented as of this encounter Care Teams Zoology Professor Relationship Specialty Start Date End Date Yolanda Aaron MD [address] [place] [id number] PCP - General Family Medicine 08/16/18 Cris Cabrera RN [address] [place] [id number] Editor [employer] Cl[employer] Boat Captain 04/25/24 08/03/24 Teressa Winn [employer] Clam Boat Captain 07/19/25 documented as of this encounter
--- OUTSIDE RECORDS SUMMARY | 2025-08-09 16:50 | XMS_ITS | Clinical Summary ---
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 HIV-1/HIV-2 Ab not detected.A test result that is nonreactive does not exclude thepossibility of exposure to or infection with HIV-1 and/orHIV-2. Nonreactive results in this assay for individualswith prior exposure to HIV-1 and/or HIV-2 may be due toantigen and antibody levels that are below the limit ofdetection of this assay.The [employer] HIV Ag/Ab Combo assay result andsupplemental assay results should be interpreted inconjunction with the patient's clinical presentation,history and other laboratory results. If the results areinconsistent with clinical evidence, additional testing issuggested to confirm the result. Blood Venous blood specimen / Unknown 03/30/2025 9:16 AM EDT 03/30/2025 11:37 AM EDT us Jairo Bingham MD LAB BLOOD ORDERABLES Manjit jayne Result - Final [facility] [address] [place] [phone] [phone] * BI Mammogram Screening Tomosynthesis Bilateral (01/05/2025 2:00 PM EDT) Anatomical Region Laterality Modality Breast Bilateral Mammography 01/05/2025 2:00 PM EDT Narrative 01/14/2025 10:59 AM EDT [address] [place] [address] Mammography Report Signed Patient: Nisha Brown MR# : [id number] : 1985 Acct:[id number] Age/Sex: 39 / F ADM Date: 01/05/25 Loc: HO.MAMMO Attending Dr: Jairo Bingham MD Ordering Physician: Jairo Bingham MD Results: 2Be nign Findings Date of Service: 01/05/25 Follow Up: 1 [facility] M[facility]ogram Procedure(s): MM tomosynthesis screening BI Accession Number(s): [id number] cc: Jairo Bingham MD EXAMINATION: MM SCREENING [...] 01/14/25 1057 DD/ 1400 TD/TT: 01/05/25 1415 Rn Surgery Icu: Procedure Note Donotuseinterpreter, Image - 01/14/2025 [facility] [address] [place] [address] Mammography Report Signed Patient: Kiki Brown# : [id number] : 1985Acct:[id number] Age/Sex: 39 / FADM Date: 01/05/25 Loc: HO.MAMMO Attending Dr: Jairo Bingham MD Ordering Physician: Jairo Bingham MDResults: 2Be nign Findings Date of Service: 01/05/25Follow Up: 1 Year From [facility] Mammogram Procedure(s): MM tomosynthesis screening BI Accession Number(s): [id number] cc: Jairo Bingham MD EXAMINATION: MM SCREENING [...] 01/14/25 1057 DD/ 1400 TD/TT: 01/05/25 1415 Rn Surgery Icu: Jairo Bingham MD IMG BI PROCEDURES Edited Result - Final * HPV E6/E7 RFLX XENIA 16 18/45 (02/12/2022 3:42 PM EDT) HPV mRNA E6/E7 rflx Not Detected Not Detected [facility] Comment: Methodology: Belt Knife Feeder-Mediated Amplification This assay detects E6/E7 viral messenger RNA (mRNA) from 14 high-risk HPV types (16,18,31,33,35,39,45,51,52,56,58,59,66,68). The analytical performance characteristics of this assay have been determined by [employer]. The modifications have not been cleared or approved by the FDA. This assay has been validated pursuant to the CLIA regulations and is used for clinical purposes. For additional information, please refer to http://education.iSell.com.Amorelie/faq/SHZ892n7 (This link if provided for information/ educational purposes only.) THIS TEST WAS PERFORMED AT: [facility] [address] [place] [address] FLOOR,[place] [phone] TREY MCELROY MD 02/12/2022 3:42 PM EDT us Harmony She[facility]on HISTORICAL/NON ORDERABLE LABS Fi nal Result [facility] [address] [place] [address], * Hm Pap Smear (02/12/2022) us Historical Provider HEALTH MAINTENANCE Final Result from Last 3 Months or Most Recently Relevant to Health Maintenance Insurance [facility] C3 Care Teams Spares Scheduler Relationship Specialty Start Date End Date Jairo Bingham MD [address] [place] [address] PCP - General Family Medicine 08/16/18 Teressa Winn Airplane WoodworkerManager Testing 07/19/25
--- OUTSIDE RECORDS SUMMARY | 2025-08-09 16:50 | XMS_ITS | Encounter Summary ---
Author Organization [employer] Address [address] [facility] 7t [place] [address] Care Team Providers Care Linoleum Layer Apprentice Name Role Phone Yolanda Aaron MD Primary Care Provider + Cris Cabrera RN Unavailable [phone] Encounter Details Date Type Department Care Team (Late Contact Info) Description 07/20/[address] [facility] [address] [place] [phone] Provider, MD Estelle Social History Tobacco Use [...] Description 09/29/2025 11:15 AM EST Office Visit [facility] [address] [place] [phone] Yolanda Aaron MD [address] [place] [address] documented as of this encounter Procedures Procedure [...] documented as of this encounter Care Teams Linoleum Layer Apprentice Relationship Specialty Start Date End Date Yolanda Aaron MD [address] [place] [address] PCP - General Family Medicine 08/16/18 Cris Cabrera RN [address] [place] [address] Whipper BeaterActive Directory Architect 04/25/24 08/03/24 Teressa Winn Whipper BeaterActive Directory Architect 07/19/25 documented as of this encounter
--- OUTSIDE RECORDS SUMMARY | 2025-08-09 16:51 | XMS_ITS | Encounter Summary ---
Author Organization [employer] Address [address] [facility] [address] 7t [place] [address] Care Team Providers Care Summer Child Caregiver Name Role Phone Yolanda Aaron MD Primary Care Provider + Cris Cabrera RN Unavailable Encounter Details Date Type Department Care Team (Late st Contact Info) Description 08/05/2023 Abstract [facility] MEDICINE [address] [place], [place] [phone] Yolanda Aaron MD [address] [place] [address] Social History Tobacco Use Types Packs/Day Years [...] Description 09/29/2025 11:15 AM EST Office Visit [facility] [address] [place] [address] Yolanda Aaron MD [address] [place] [address] documented as of this encounter Visit Diagnoses Not on filedocumented in this encounter Additional Health Concerns Assessment Noted Time PHQ-9 Depression Total Score: 023 3:33 PM EDT documented as of this encounter Care Teams Summer Child Caregiver Relationship Specialty Start Date End Date Yolanda Aaron MD [address] [place] [address] PCP - General Family Medicine 08/16/18 Cris Cabrera RN [address] [place] [address] Portfolio DirectorWatch Repair Technician 04/25/24 08/03/24 Teressa Winn Portfolio DirectorWatch Repair Technician 07/19/25 documented as of this encounter
--- OUTSIDE RECORDS SUMMARY | 2025-08-09 16:51 | XMS_ITS | Encounter Summary ---
Author Organization [employer] Address [address] [facility] 7t [place] [address] Care Team Providers Care Manager Produce Name Role Phone Yolanda Aaron MD Primary Care Provider + Cris Cabrera RN Unavailable [phone] Encounter Details Date Type Department Care Team (Late st Contact Info) Description 12/24/2022 Orders Only [facility] MED[facility]INE [address] [place], [place] [phone] Yolanda Aaron MD [address] [place], [place] [phone] Social History Tobacco Use Types Packs/Day Years [...] Description 09/29/2025 11:15 AM EST Office Visit [facility] [address] [place] [address] Yolanda Aaron MD [address] [place] [address] documented as of this encounter Visit Diagnoses Not on filedocumented in this encounter Additional Health Concerns Assessment Noted Time PHQ-9 Depression Total Score: 11 023 11:41 AM EST documented as of this encounter Care Teams Manager Produce Relationship Specialty Start Date End Date Yolanda Aaron MD [address] [place] [address] PCP - General Family Medicine 08/16/18 Cris Cabrera RN [address] [place] [address] Hot Dog VenderCdl A Driver 04/25/24 08/03/24 Teressa Winn Hot Dog VenderCdl A Driver 07/19/25 documented as of this encounter
--- OUTSIDE RECORDS SUMMARY | 2025-08-09 16:51 | XMS_ITS | Encounter Summary ---
Author Organization [employer] Address 75 [facility] 7t [place] [address] Care Team Providers Care Periodicals Library Assistant Name Role Phone Yolanda Aaron MD Primary Care Provider + Cris Cabrera RN Unavailable [phone] Encounter Details Date Type Department Care Team (Late Contact Info) Description 04/20/2023 Abstract [facility] [address] [place] [address] Yolanda Aaron MD [address] [place] [address] [phone] Social History Tobacco Use Types Packs/Day Years [...] Description 09/29/2025 11:15 AM EST Office Visit [facility] [address] [place] [address] Yolanda Aaron MD [address] [place] [address] documented as of this encounter Visit Diagnoses Not on filedocumented in this encounter Additional Health Concerns Assessment Noted Time PHQ-9 Depression Total Score: 13 023 2:39 PM EDT documented as of this encounter Care Teams Periodicals Library Assistant Relationship Specialty Start Date End Date Yolanda Aaron MD [address] [place] [address] PCP - General Family Medicine 08/16/18 Cris Cabrera RN [address] [place] [address] Placer MinerMine Engineering Supervisor 04/25/24 08/03/24 Teressa Winn Placer MinerMine Engineering Supervisor 07/19/25 documented as of this encounter
== END 2025-08-09 14:39 | disposition home or self-care (01) ==
LOC: HO.HWS 13:10
PROVIDERS: PCP Internal Medicine; Visit Provider Advanced Practice Midwife
DX: N73.9 Female pelvic inflammatory disease, unspecified (principal); R10.20 Pelvic and perineal pain unspecified side; R82.90 Unspecified abnormal findings in urine
CPT/HCPCS: 99214

== ENCOUNTER 2025-08-09 13:10 | Outpatient (REF) | payer MEDICAID, SELFPAY | END 2025-08-09 13:11 | disposition home or self-care (01) | LOC: HO.LAB 13:10 | PROVIDERS: PCP Internal Medicine; Visit Provider Advanced Practice Midwife | DX: Z13.89 Encounter for screening for other disorder (principal) | CPT/HCPCS: 81003; 81025; 96372; 99212; J0696 ==

== ENCOUNTER 2025-08-09 13:41 | Outpatient (REF) | payer MEDICAID, SELFPAY ==
[2025-08-09 15:49] LABS: Bacterial Vaginosis PCR POSITIVE (Negative); Candida Group PCR NOT DETECTED (Not Detect); Candida glab krusei PCR NOT DETECTED (Not Detect); Trichomonas vaginalis PCR NOT DETECTED (Not Detect)
[2025-08-09 16:19] LABS: CT PCR NOT DETECTED (Not Detect.); NG PCR NOT DETECTED (Not Detect.)
== END 2025-08-09 13:42 | disposition home or self-care (01) ==
LOC: HO.LNP 13:41
PROVIDERS: Visit Provider Advanced Practice Midwife
DX: Z13.89 Encounter for screening for other disorder (principal)
CPT/HCPCS: 81515; 87086; 87491; 87591

== ENCOUNTER 2025-08-09 14:06 | Outpatient (REF) | payer MEDICAID, SELFPAY ==
--- NOTE | ~2025-08-09 | US_ITS ---
EXAMINATION: US PELVIS CLINICAL INFORMATION: Pelvic and perineal pain. R10.2. COMPARISON: February 26, 2024 TECHNIQUE: Ultrasound of the pelvis is performed using both transabdominal and transvaginal transducers along with Doppler. Transvaginal imaging is performed due to inadequate visualization transabdominally. FINDINGS: Uterus: The uterus is in retroversion flexion and measures 9 x 5 x 7 cm. Volume: 155 cc. The double wall endometrial thickness is 12 mm. The uterus is smooth in contour and has normal myometrial echogenicity. 0.6 cm anechoic structure in the myometrium, body of the uterus. No solid lesion. Adnexa: The ovaries are identified with flow on color Doppler interrogation.. There is no pelvic ascites or fluid collection. No free fluid in the cul-de-sac. Right ovary measures 3 x 1 x 2 cm. Volume: 3 cc. 0.9 cm anechoic structure adjacent to the ovary. Left ovary measures 3 x 3 x 3 cm. Volume: 13 cc. There is a 2.7 cm heterogeneous probably septated mixed iso to hypoechoic abnormality. US/US pelvic and transvaginal IMPRESSION: No ovarian torsion. 2.7 cm probable hemorrhagic cyst versus endometrioma, left ovary. 0.9 cm cyst, right paraovarian. Uterus in retroversion flexion position. 0.6 cm cystic lesion, myometrium. Electronically signed by: David Dash MD 08/09/2025 03:32 PM EDT
== END 2025-08-09 14:07 | disposition home or self-care (01) ==
LOC: HO.US 14:06
PROVIDERS: PCP Internal Medicine; Visit Provider Advanced Practice Midwife
DX: N73.9 Female pelvic inflammatory disease, unspecified (principal); R10.20 Pelvic and perineal pain unspecified side
CPT/HCPCS: 76830; 76856

== ENCOUNTER → 2025-08-09 14:09 | Outpatient (BNV) | payer MEDICAID, SELFPAY | PROVIDERS: PCP Internal Medicine; Visit Provider Radiology Diagnostic Radiology | DX: N83.12 Corpus luteum cyst of left ovary (principal); N83.8 Other noninflammatory disorders of ovary, fallopian tube and broad ligament | CPT/HCPCS: 76830; 76856 ==

== ENCOUNTER → 2025-08-10 08:58 | Outpatient (BNV) | payer MEDICAID, SELFPAY | PROVIDERS: PCP Internal Medicine; Visit Provider Radiology Diagnostic Radiology | DX: K76.0 Fatty (change of) liver, not elsewhere classified (principal); R16.1 Splenomegaly, not elsewhere classified | CPT/HCPCS: 74183 ==

== ENCOUNTER 2025-08-10 09:04 | Outpatient (REF) | payer MEDICAID, SELFPAY ==
--- NOTE | ~2025-08-10 | MR_ITS ---
CLINICAL HISTORY: Other specified health status, abn findings on u s, liver MR abdomen with and without contrast Comparison: US/SR - US ABDOMEN COMPLETE WITH LIVER ELASTOGRAPHY - 05/10/25 08:[address]/SR - CT ABDOMEN PELVIS WITHOUT IV CONTRAST - 12/05/22 19:12 EST Findings: No signal abnormality in the lung bases. Unremarkable gallbladder. No intrahepatic or extrahepatic biliary ductal dilatation. The liver is normal in size, measuring 16.6 cm in craniocaudal dimension. No lobular contour of the liver capsular other cirrhotic liver morphology. There is loss of signal in the liver on the out of phase images indicating hepatic steatosis with focal fatty sparing at the gallbladder fossa. No abnormal enhancement. The spleen is mildly enlarged, measuring 12.3 cm in craniocaudal dimension. The other solid organs are unremarkable. No bowel wall thickening or dilation. No aneurysm. No lymphadenopathy. No ascites. Mild scoliosis. Hemangioma in L2 measuring 1.3 cm. Increased signal on the T2 weighted images at the superior endplate of L5 at the right aspect, degenerative Impression: Hepatic steatosis. No MR evidence of cirrhosis. Mild splenomegaly. This document has been electronically signed by: Latasha Tavera MD on 08/11/2025 14:29:13
--- OUTSIDE RECORDS SUMMARY | 2025-08-10 10:08 | XMS_ITS | Encounter Summary ---
Author Organization [employer] Address [address] [facility] 7t [place] [address] Care Team Providers Care Waiter/Waitress Tourist Class Name Role Phone Yolanda Aaron MD Primary Care Provider + Cris Cabrera RN Unavailable [phone] Encounter Details Date Type Department Care Team (Late Contact Info) Description 04/20/2023 Abstract [facility] MEDICINE [address] [place] [address] Yolanda Aaron MD [address] [place] [address] [phone] Social History Tobacco Use Types Packs/Day Years [...] Description 09/29/2025 11:15 AM EST Office Visit [facility] [address] [place] [address] Yolanda Aaron MD [address] [place] [address] documented as of this encounter Visit Diagnoses Not on filedocumented in this encounter Additional Health Concerns Assessment Noted Time PHQ-9 Depression Total Score: 13 023 2:39 PM EDT documented as of this encounter Care Teams Waiter/Waitress Tourist Class Relationship Specialty Start Date End Date Yolanda Aaron MD [address] [place] [address] PCP - General Family Medicine 08/16/18 Cris Cabrera RN [address] [place] [address] Media Theorist And Author OfBeauty Shop Manager 04/25/24 08/03/24 Teressa Winn Media Theorist And Author OfBeauty Shop Manager 07/19/25 documented as of this encounter
--- OUTSIDE RECORDS SUMMARY | 2025-08-10 10:08 | XMS_ITS | Encounter Summary ---
Author Organization [employer] Address 75 [facility] 7t [place] [address] Care Team Providers Care Head Banquet Waitress Name Role Phone Yolanda Aaron MD Primary Care Provider + Cris Cabrera RN Unavailable Encounter Details Date Type Department Care Team (Late st Contact Info) Description 12/01/2022 Abstract [facility] MED[facility]INE [address] [place], [place] [phone] Yolanda Aaron MD [address] [place], [place] [phone] Social History Tobacco Use Types Packs/Day Years [...] 11:15 AM EST Office Visit [facility] [address] [place] [address] Yolanda Aaron MD [address] [place] [address] documented as of this encounter Visit Diagnoses Not on filedocumented in this encounter Additional Health Concerns Assessment Noted Time PHQ-9 Depression Total Score: 11 023 11:41 AM EST documented as of this encounter Care Teams Head Banquet Waitress Relationship Specialty Start Date End Date Yolanda Aaron MD [address] [place] [address] PCP - General Family Medicine 08/16/18 Cris Cabrera RN [address] [place] [address] Cloth SpongerDough Braker 04/25/24 08/03/24 Teressa Winn Cloth SpongerDough Braker 07/19/25 documented as of this encounter
--- OUTSIDE RECORDS SUMMARY | 2025-08-10 10:08 | XMS_ITS | Encounter Summary ---
Author Organization [employer] Address 75 [facility] 7t [place] [address] Care Team Providers Care Pipe Coverer And Insulator Name Role Phone Yolanda Aaron MD Primary Care Provider + Cris Cabrera RN Unavailable [phone] Encounter Details Date Type Department Care Team (Late st Contact Info) Description 12/24/2022 Orders Only [facility] [address] [place], [place] [phone] Yolanda Aaron MD [address] [place], [place] [phone] Social History Tobacco Use Types Packs/Day Years [...] Office Visit [facility] [address] [place] [address] Yolanda Aaron MD [address] [place] [address] documented as of this encounter Visit Diagnoses Not on filedocumented in this encounter Additional Health Concerns Assessment Noted Time PHQ-9 Depression Total Score: 11 023 11:41 AM EST documented as of this encounter Care Teams Pipe Coverer And Insulator Relationship Specialty Start Date End Date Yolanda Aaron MD [address] [place] [address] PCP - General Family Medicine 08/16/18 Cris Cabrera RN [address] [place] [address] Restaurant WorkerSolar Sales Consultant 04/25/24 08/03/24 Teressa Winn Restaurant WorkerSolar Sales Consultant 07/19/25 documented as of this encounter
--- OUTSIDE RECORDS SUMMARY | 2025-08-10 10:08 | XMS_ITS | Encounter Summary ---
Author Organization [employer] Address [address] [facility] [address] 7t [place] [address] Care Team Providers Care Food Services Coordinator Name Role Phone Yolanda Aaron MD Primary Care Provider + Cris Cabrera RN Unavailable [phone] Encounter Details Date Type Department Care Team (Late st Contact Info) Description 08/05/2023 Abstract [facility] MEDICINE [address] [place], [place] [phone] Yolanda Aaron MD [address] [place] [address] Social History Tobacco Use Types Packs/Day Years [...] 09/29/2025 11:15 AM EST Office Visit [facility]INE [address] [place] [address] Yolanda Aaron MD [address] [place] [address] documented as of this encounter Visit Diagnoses Not on filedocumented in this encounter Additional Health Concerns Assessment Noted Time PHQ-9 Depression Total Score: 023 3:33 PM EDT documented as of this encounter Care Teams Food Services Coordinator Relationship Specialty Start Date End Date Yolanda Aaron MD [address] [place] [address] PCP - General Family Medicine 08/16/18 Cris Cabrera RN [address] [place] [address] Buffet ServerSurgical Supplies Sterilizer 04/25/24 08/03/24 Teressa Winn Buffet ServerSurgical Supplies Sterilizer 07/19/25 documented as of this encounter
--- OUTSIDE RECORDS SUMMARY | 2025-08-10 10:08 | XMS_ITS | Clinical Summary ---
Author Organization [employer] Address [address] [place] [address] Care Team Providers Care Fruit Culler Name Role Phone Jairo Bingham MD Primary Care Provider + Allergies No known active allergies Medications * This document contains information received from the source organization and may not represent a complete record from that organization. Calcium Carb-Cholecalci ferol 500-10 MG-MCG tablet Take 1 tablet by mouth in the morning and at bedtime. 2 Active ergocalciferol (Vitamin D2) 1.25 MG (34832 UT) capsule TAKE 1 CAPSULE BY MOUTH [...] steroid injection. Bipolar I disorder with depression (CMS/[facility]ER[facility]) 02/202411/30/2023 Elevated liver enzymes 11/30/2023 Panic attack [...] referred to AUD program. Fu closely with cross country/track and field coach Hep B up to date Varicose [...] she can drop of att he front maker lockstitch and request a referral at [facility] [...] be referred to [facility] and Recovery program. [...] she has been reluctant to continue terminal manager anticoagulation. F yearly with hematology Re consutl [...] is able to initiate care with her [facility] agency prescriber, she will go ahead and do that instead. She should call [facility] and/or consult her PCP with [...] close fu with mental health provider and cross country/track and field coach Counseled to cut down etoh use [...] Plan (12/03/2022 11:27 AM EST): FU by HAT FINISHING MATERIALS PREPARER. Pat for PAP and pelvic US Coming [...] Type Department Care Team Description 07/19/2025 Telephone [facility] & PEDS [address] [place] [address] Jairo Bingham MD Care Coordination (ICP Care Plan) 07/18/2025 Orders Only GENERIC EXTERNAL DATA DEPARTMENT Provider, Generic External Data 07/14/2025 3:00 PM EDT Office Visit [facility] [address] [place] [phone] Karen, Kaci, MARKETING CLERK Thiamine deficiency neuropathy (Primary Dx) 07/14/2025 Travel 07/11/2025 Telephone [facility] [address] [place] [address] Kriss Montes RN appt. reschedule 06/29/2025 Orders Only GENERIC EXTERNAL DATA DEPARTMENT Provider, Generic External Data 06/12/2025 Orders Only GENERIC EXTERNAL DATA DEPARTMENT Provider, Generic External Data 05/25/2025 Results Follow-Up [facility] [address] [place] [phone] Jairo Bingham MD US Abdomen Comp w elastography 05/10/2025 Orders Only [facility] External Provider, [facility] from Last 3 Months Immunizations Immunization Administration [...] 09/29/2025 11:15 AM EST Office Visit [facility] [address] [place] [address] Jairo Bingham MD [address] [place], [place] [phone] Health Maintenance Due Date Last Done Comments [...] PM EDT Narrative 08/09/2025 3:35 PM EDT [address] [address] Ultrasound Report Signed Patient: Nisha Brown MR# : [id number] : 1985 Acct:[id number] Age/Sex: 40 / F ADM Date: 08/09/25 Loc: HO.US Attending Dr: Harmony Sheldon CNM Ordering Physician: Harmony Sheldon CNM Date of Service: 08/09/25 Procedure(s): US pelvic and transvaginal Accession Number(s): [id number] cc: Jairo Bingham MD; Harmony Sheldon CNM [...] 08/09/25 1532 DD/ 1500 TD/TT: 08/09/25 1513 Morgue Attendant: Procedure Note Donotuseinterpreter, Image - 08/09/2025 [place] [address] Ultrasound Report Signed Patient: Kiki Brown# : [id number] : 1985Acct:[id number] Age/Sex: 40 / FADM Date: 08/09/25 Loc: HO.US Attending Dr: Harmony Sheldon CNM Ordering Physician: Harmony Sheldon CNM Date of Service: 08/09/25 Procedure(s): US pelvic and transvaginal Accession Number(s): [id number] cc: Jairo Bingham MD; Harmony Sheldon CNM [...] 08/09/25 1532 DD/ 1500 TD/TT: 08/09/25 1513 Morgue Attendant: us [facility] External Provider IMG US PROCEDURES Final Result * (ABNORMAL) Lipid Panel with Reflex to Direct LDL (07/18/2025 8:26 AM EDT) Triglycerides 90 <150 mg/dL [facility] Comment:Desirable Triglyceri de: less than 150 mg/dLBorderline High Triglyceride 150-199 mg/dLHigh Triglyceride: 200-499 mg/dLVery High Triglyceride: greater than or equal to 5OO mg/dL Cholesterol 136 <200 mg/dL [facility] Comment:Desirable Cholestero l: less than 200 mg/dLBorderline High Cholesterol: 200-239 mg/dLHigh Cholesterol: greater than 239 mg/dL LDL Cholesterol Calculated 83 <100 mg/dL [facility] Comment:Desirable LDL: less than 100 mg/dLNear Optimal/Above Optimal LDL: 110- 129 mg/dLBorderline High LDL: 130-159 mg/dLHigh LDL: 160-189 mg/dLVery High LDL: greater than or equal to 190 mg/dL HDL Cholesterol 35(L) >40 mg/dL [facility] Comment:Desirable HDL: great er than 40 mg/dL Note: This HDL assay may give artificially low results in patients with liver disease. 07/18/2025 8:26 AM EDT 07/18/2025 8:26 AM EDT Generic External Data Provider LAB BLOOD ORDERAB LES Final Result [facility] [address] [place] [phone] * (ABNORMAL) Comprehensive Metabolic Panel, Fasting (06/29/2025 10:55 AM EDT) [facility] Sodium 143 135 - 145 mmol/L [facility] Potassium 4.1 3.3 - 5.1 mmol/L [facility] Chloride 109(H) 96 - 108 mmol/L [facility] Carbon Dioxide 25 22 - 29 mmol/L [facility] Anion Gap 13 12 - 20 [facility] Urea Nitrogen (BUN) 10 9 - 16 mg/dL [facility] Creatinine, Serum 0.73 0.5 - 1.4 mg/dL [facility] Estimated Glomerular Filt Rate >60 [facility] Comment:Chronic Kidney Disea se: Estimated GFR < 60 mL/min/1.50n6Wrafmk Kidney Disease: Estimated GFR < 15 mL/min/1.73m2 Glucose Fasting 79 60 - 99 mg/dL [facility] Calcium 8.9 8.4 - 10.2 mg/dL [facility] Bilirubin, Total 0.5 0.0 - 1.0 mg/dL [facility] Aspartate Amino Transferase 65(H) 5 - 31 U/L [facility] Alanine Aminotransferase 84(H) 0 - 31 U/L [facility] Total Protein 7.3 6.5 - 8.0 g/dL [facility] Albumin Level 4.1 3.5 - 5.0 g/dL [facility] Alkaline Phosphatase 77 39 - 117 U/L [facility] 06/29/2025 10:5 5 AM EDT 06/29/2025 10:55 AM EDT us Generic External Data Provider LAB BLOOD ORDERAB LES Final Result [facility] [address] [place] [address] [phone] * Vitamin B12 (Cobalamin) and Folate Panel, Serum (06/29/2025 10:55 AM EDT) Pathologist [facility] Vitamin B12 473 200 - 900 pg/mL [facility] Comment:NORMAL 200-900 PG/ML INDETERMINATE 160-199 PG/ML DEFICIENT < 160 PG/ML Folate 9.3 > or = 4.0 ng/mL [facility] Comment:Reference Values:> o r = 4.0 ng/mL< 4.0 ng/mL suggests folate deficiency Methotrexate, aminopterin and folinic acid(leucovorin) are chemotherapeutic agents whose molecularstructures are similar to folate; therefore, the Architectfolate assay cannot be used for patients using these drugs. 06/29/2025 10:5 5 AM EDT 06/29/2025 10:55 AM EDT Generic External Data Provider LAB BLOOD ORDERAB LES Final Result Performing Organization Address [facility]/ZIP Co de Phone Number [facility] [address] [place] [phone] * TSH with Reflex to Free T4 (06/29/2025 10:55 AM EDT) [facility] TSH reflex Free T4 1.34 0.32 - 4.0 uIU/mL [facility] 06/29/2025 10:5 5 AM EDT 06/29/2025 10:55 AM EDT [employer] External Data Provider LAB BLOOD ORDERAB LES Final Result Performing Organization Address [facility]/ZIP Co de Phone Number [facility] [address] [place] [phone] * Lyme Disease Ab with Reflex to Blot (IgG, IgM) (06/29/2025 10:55 AM EDT) [facility] Lyme Antibody Screen <0.90 index [facility] Comment:Index Interpretation ----- < 0.90 Negative [...] when erythemamigrans is apparent.THIS TEST WAS PERFORMED AT:[facility] [place] [phone] MCELROY MD Lyme Blot TNP [facility] 06/29/2025 10:5 5 AM EDT 06/29/2025 10:55 AM EDT us Generic External Data Provider LAB BLOOD ORDERAB LES Final Result [facility] [address] [place] [phone] * CBC auto differential (06/29/2025 10:55 AM EDT) White Blood Count 7.7 4.8 - 10.8 X10*3/uL [facility] Red Blood Count 4.60 4.20 - 5.50 X10*6/uL [facility] Hemoglobin 13.9 12.0 - 16.0 g/dl [facility] Hematocrit 41.4 37.0 - 47.0 % [facility] Mean Corpuscular Volume 90.0 80.0 - 98.0 fL [facility] Mean Corpuscular Hemoglobin 30.2 27.0 - 33.0 pg [facility] Mean Corpuscular HGB Conc 33.6 31.0 - 35.0 g/dl [facility] Red Cell Distribution Width 12.4 11.0 - 16.0 % [facility] Platelet Count 298 160 - 400 X10*3/uL [facility] Mean Platelet Volume 10.3 9.4 - 12.3 fL [facility] Neutrophils Percent Auto 67.2 45 - 73 % [facility] Imm Gran Pct Auto 0.3 0.0 - 0.4 % [facility] Lymphocytes Percent Auto 24.9 20 - 40 % [facility] Monocytes Percent Auto 6.6 2 - 11 % [facility] Eosinophils Percent Auto 0.5 0 - 4 % [facility] Basophils Percent Auto 0.5 0 - 2 % [facility] NRBC Pct Auto 0.0 0.0 - 0.2 /100WBC [facility] Neutrophils Absolute Auto 5.2 2.0 - 8.3 x10*3/uL [facility] Imm Gran Abs Auto 0.02 0.00 - 0.03 X10*3/uL [facility] Lymphocytes Absolute Auto 1.9 1.2 - 4.9 X10*3/uL [facility] Monocytes Absolute Auto 0.5 0.1 - 1.2 X10*3/uL [facility] Eosinophils Absolute Auto 0.0 0.0 - 0.4 X10*3/uL [facility] Basophils Absolute Auto 0.0 0.0 - 0.2 X10*3/uL [facility] NRBC Abs Auto 0.000 0.0 - 0.012 X10*3/uL [facility] 06/29/2025 10:5 5 AM EDT 06/29/2025 10:55 AM EDT us Generic External Data Provider LAB BLOOD ORDERAB LES Final Result [facility] [address] [place] [phone] * Methylmalonic Acid (06/29/2025 10:55 AM EDT) Methylmalonic Acid 141 55 - 335 nmol/L [facility] Comment: Serum methylmalonic acid (MMA) levels [...] outcomes,such as neural tube defects and intrauterine growthrestriction.[employer] utilized Multi-Modal Decomposition(MMD) analysis to establish first and second trimester-specific MMA reference intervals in , as givenbelow:MMA, First trimester (<13 wks gestation): 58-167 nmol/LMMA, Second trimester (13-23 wks gestation):63-241 nmol/LThis test was developed and its analytical performancecharacteristics have been determined by [employer]. It has not been cleared or approved by theA. This assay has been validated pursuant to the CLIAregulations and is used for clinical purposes.THIS TEST WAS PERFORMED AT:[employer]/[id number] [place] [phone] WARREN MD,PHD 06/29/2025 10:5 5 AM EDT 06/29/2025 10:55 AM EDT us Generic External Data Provider LAB BLOOD ORDERAB LES Final Result Performing Organization Address City/[facility]/ZIP Co de Phone Number [facility] [address] [place] [phone] * (ABNORMAL) Iron And Total Iron Binding Capacity (06/29/2025 10:55 AM EDT) Iron 90 30 - 160 mcg/dL [facility] Total Iron Binding Capacity 215(L) 228 - 428 mcg/dL [facility] Percent Iron Saturation 42 15 - 50 % [facility] Unsaturated Iron Binding 125 ug/dL [facility] 06/29/2025 10:5 5 AM EDT 06/29/2025 10:55 AM EDT us Generic External Data Provider LAB BLOOD ORDERAB LES Final Result Performing Organization Address City/[facility]/ZIP Co de Phone Number [facility] [address] [place] [phone] * Sed Rate by Modified Westergren (06/29/2025 10:55 AM EDT) Pathologist [facility] Erythrocyte Sedimentation Rate 18 0 - 20 MM/HR [facility] Comment:Patients with polycy themia and many hemoglobin abnormalitiesmay have depressed sed rates whereas patients with anemiamay have elevated sed rates. 06/29/2025 10:5 5 AM EDT 06/29/2025 10:55 AM EDT Generic External Data Provider LAB BLOOD ORDERAB LES Final Result Performing Organization Address [facility]/ZIP Co de Phone Number [facility] [address] [place] [phone] * (ABNORMAL) C-reactive Protein (06/29/2025 10:55 AM EDT) [facility] C Reactive Protein 1.98(H) < or = 0.50 mg/dL [facility] 06/29/2025 10:5 5 AM EDT 06/29/2025 10:55 AM EDT Generic External Data Provider LAB BLOOD ORDERAB LES Final Result Performing Organization Address [facility]/ZIP Co de Phone Number [facility] [address] [place] [phone] * (ABNORMAL) Vitamin B1 (06/29/2025 10:55 AM EDT) [facility] Vitamin B1 <6(A) 8 - 30 nmol/L [facility] Comment:Vitamin supplementat ion within 24 hours prior toblood draw may affect the accuracy of the results.This test was developed and its analytical performancecharacteristics have been determined by [employer] [place], [place]. It hasnot been cleared or approved by the U.S. Food and DrugAdministration. This assay has been validated pursuantto the CLIA regulations and is used for clinicalpurposes.THIS TEST WAS PERFORMED AT:[employer]/[place] [id number] [place] [address]YTZWJTCGINETTE WARREN MD,PHD 06/29/2025 10:5 5 AM EDT 06/29/2025 10:55 AM EDT Generic External Data Provider LAB BLOOD ORDERAB LES Final Result Performing Organization Address City/[facility]/ZIP Co de Phone Number [facility] [address] [place] [phone] * Vitamin B6, Plasma (06/29/2025 10:55 AM EDT) Vitamin B6 5.3 2.1 - 21.7 ng/mL [facility] Comment:Vitamin supplementat ion within 24 hours prior toblood draw may affect the accuracy of the results.This test was developed and its analytical performancecharacteristics have been determined by [employer] [place], [place]. It hasnot been cleared or approved by the U.S. Food and DrugAdministration. This assay has been validated pursuantto the CLIA regulations and is used for clinicalpurposes.THIS TEST WAS PERFORMED AT:[employer]/[facility] [id number] [place] [address]DCGEYGDGINETTE WARREN MD,PHD 06/29/2025 10:5 5 AM EDT 06/29/2025 10:55 AM EDT us Generic External Data Provider LAB BLOOD ORDERAB LES Final Result Performing Organization Address City/[facility]/ZIP Co de Phone Number [facility] [address] [place] [phone] * Magnesium (06/29/2025 10:55 AM EDT) Magnesium 2.2 1.6 - 2.6 mg/dL [facility] 06/29/2025 10:5 5 AM EDT 06/29/2025 10:55 AM EDT Generic External Data Provider LAB BLOOD ORDERAB LES Final Result Performing Organization Address [facility] Co de Phone Number [facility] [address] [place] [phone] * Homocysteine (06/29/2025 10:55 AM EDT) Homocysteine 6.8 < or = 11.0 umol/L [facility] Comment:Homocysteine is incr eased by functional deficiency offolate or vitamin B12. Testing for methylmalonic aciddifferentiates between these deficiencies. Other causesof increased homocysteine include renal failure, folateantagonists such as methotrexate and phenytoin, andexposure to nitrous oxide.Kendrick Downing et al., Kristie Machinist Supervisor Outside Med. 1999;131(5):331-9.THIS TEST WAS PERFORMED AT:[facility] [place] [id number] MCELROY MD 06/29/2025 10:5 5 AM EDT 06/29/2025 10:55 AM EDT Generic External Data Provider LAB BLOOD ORDERAB LES Final Result Performing Organization Address [facility] de Phone Number [facility] [address] [place] [phone] * Hemoglobin A1c (06/29/2025 10:55 AM EDT) Hemoglobin A1c 5.4 <6.0 % [facility] Comment:Hemoglobin A1C Refer ence Range Adults: 4.8 - 6.0 % Non diabetic: < 6.0 % Goal: < 7.0 %Additional Action Suggested: > 8.0 %Note: Hemoglobin A1c results are invalid for patients with abnormal amounts of HbF. Blood transfusions may impact the HbA1c concentration in the patient sample. Estimated Average Glucose 108 mg/dL [facility] Comment:eAG = Estimated ave rage glucose which is %A1C expressed asaverage glucose, using the formula of the T5K-QdjamlpSaafmmy Glucose study (ADAG), Diabetes Care, Vol.31,#8,2007 06/29/2025 10:5 5 AM EDT 06/29/2025 10:55 AM EDT Generic External Data Provider LAB BLOOD ORDERAB LES Final Result Performing Organization Address [facility] de Phone Number [facility] [address] [place] [phone] * (ABNORMAL) Ferritin (06/29/2025 10:55 AM EDT) Ferritin 500(H) 10 - 250 ng/mL [facility] 06/29/2025 10:5 5 AM EDT 06/29/2025 10:55 AM EDT Generic External Data Provider LAB BLOOD ORDERAB LES Final Result Performing Organization Address [facility] de Phone Number [facility] [address] [place] [phone] * (ABNORMAL) Prothrombin Time-INR (06/12/2025 11:13 AM EDT) Prothrombin Time 12.5(H) 10.9 - 12.4 SEC [facility] INTERNATIONAL NORM RATIO 1.1 0.9 - 1.1 [facility] Comment:INTERNATIONAL NORMAL IZED RATIO (INR) REFERENCE [...] Provider LAB BLOOD ORDERAB LES Final Result [facility] [address] [place] [phone] [phone] * CBC (06/12/2025 11:13 AM EDT) [facility] White Blood Count 7.0 4.8 - 10.8 X10*3/uL [facility] Red Blood Count 4.69 4.20 - 5.50 X10*6/uL [facility] Hemoglobin 13.9 12.0 - 16.0 g/dl [facility] Hematocrit 42.9 37.0 - 47.0 % [facility] Mean Corpuscular Volume 91.5 80.0 - 98.0 fL [facility] Mean Corpuscular Hemoglobin 29.6 27.0 - 33.0 pg [facility] Mean Corpuscular HGB Conc 32.4 31.0 - 35.0 g/dl [facility] Red Cell Distribution Width 12.5 11.0 - 16.0 % [facility] Platelet Count 290 160 - 400 X10*3/uL [facility] Mean Platelet Volume 10.3 9.4 - 12.3 fL [facility] NRBC Pct Auto 0.0 0.0 - 0.2 /100WBC [facility] NRBC Abs Auto 0.000 0.0 - 0.012 X10*3/uL [facility] 06/12/2025 11:1 3 AM EDT 06/12/2025 11:49 AM EDT us Generic External Data Provider LAB BLOOD ORDERAB LES Final Result [facility] [address] [place] [phone] * (ABNORMAL) Comprehensive Metabolic Panel (06/12/2025 12:00 AM EDT) [facility] Sodium 143 135 - 145 mmol/L [facility] Potassium 4.0 3.3 - 5.1 mmol/L [facility] Chloride 109(H) 96 - 108 mmol/L [facility] Carbon Dioxide 26 22 - 29 mmol/L [facility] Anion Gap 12 12 - 20 [facility] Urea Nitrogen (BUN) 12 9 - 16 mg/dL [facility] Creatinine, Serum 0.79 0.5 - 1.4 mg/dL [facility] Estimated Glomerular Filt Rate >60 [facility] Comment:Chronic Kidney Disea se: Estimated GFR < 60 mL/min/1.61b3Mhtbwf Kidney Disease: Estimated GFR < 15 mL/min/1.73m2 Glucose 85 60 - 115 mg/dL [facility] Calcium 9.1 8.4 - 10.2 mg/dL [facility] Bilirubin, Total 0.4 0.0 - 1.0 mg/dL [facility] Aspartate Amino Transferase 40(H) 5 - 31 U/L [facility] Alanine Aminotransferase 64(H) 0 - 31 U/L [facility] Total Protein 7.3 6.5 - 8.0 g/dL [facility] Albumin Level 4.2 3.5 - 5.0 g/dL [facility] Alkaline Phosphatase 76 39 - 117 U/L [facility] 06/12/2025 06/12/2025 us Generic External Data Provider LAB BLOOD ORDERAB LES Final Result Performing Organization Address City/State/[facility] Co de Phone Number [facility] [address] [place] [phone] * US Abdomen Comp w elastography (05/10/2025 8:21 AM EDT) Anatomical Region Laterality Modality Abdomen Ultrasound 05/10/2025 8:21 AM EDT Narrative 05/10/2025 9:04 AM EDT [address] [address] Ultrasound Report Signed Patient: Nisha Brown MR# : [id number] : 1985 Acct:[id number] Age/Sex: 39 / F ADM Date: 05/10/25 Loc: HO.US Attending Dr: Digna Torres MD Ordering Physician: Digna Torres MD Date of Service: 05/10/25 Procedure(s): US abdomen comp w elastography Accession Number(s): [id number] cc: Jairo Bingham MD; Digna Torres MD [...] OV> 05/10/25900 DD/ 0 TD/TT: 05/10/25 0848 Morgue Attendant: Procedure Note Donotuseinterpreter, Image - 05/10/[address] [address] Ultrasound Report Signed Patient: Kiki Brown# : [id number] : 1985Acct:[id number] Age/Sex: 39 / FADM Date: 05/10/25 Loc: HO.US Attending Dr: Digna Torres MD Ordering Physician: Digna Torres MD Date of Service: 05/10/25 Procedure(s): US abdomen comp w elastography Accession Number(s): [id number] cc: Jairo Bingham MD; Digna Torres MD [...] 05/10/25 0901 DD/ 0821 TD/TT: 05/10/25 0848 Morgue Attendant: [facility] External Provider IMG US PROCEDURES Final Result * Hepatitis Panel, General (03/30/2025 9:16 AM EDT) Hepatitis A IgM Nonreactive Nonreactive [facility] Comment:IgM antibodies to PFEIFFER V not detected; does not exclude earlyacute or recovered HAV infection. ~Hepatitis B Surface Antibody REACTIVE Nonreactive [facility] Comment:REACTIVE: > 11.99 mI U/mL Hepatitis B Core Antibody Nonreactive Nonreactive [facility] Hepatitis C Antibody Nonreactive Nonreactive [facility] Comment:Antibodies to HCV no t detected; does not exclude early acuteHCV infection. Hepatitis B Surface Ag Negative Negative [facility] Blood 03/30/2025 9:16 AM EDT 03/30/2025 11:37 AM EDT Jairo Bingham MD LAB BLOOD ORDERABLES Fin al Result [facility] [address] [place] [phone] * HIV-1/2 Antigen and Antibodies, Fourth Generation, with Reflexes (03/30/2025 9:16 AM EDT) HIV AB/AG Nonreactive Nonreactive [facility] Comment:HIV-1 p24 Ag and/or HIV-1/HIV-2 Ab not detected.A test result that is nonreactive does not exclude thepossibility of exposure to or infection with HIV-1 and/orHIV-2. Nonreactive results in this assay for individualswith prior exposure to HIV-1 and/or HIV-2 may be due toantigen and antibody levels that are below the limit ofdetection of this assay.[employer] HIV Ag/Ab Combo assay result andsupplemental assay results should be interpreted inconjunction with the patient's clinical presentation,history and other laboratory results. If the results areinconsistent with clinical evidence, additional testing issuggested to confirm the result. Blood Venous blood specimen / Unknown 03/30/2025 9:16 AM EDT 03/30/2025 11:37 AM EDT us Jairo Bingham MD LAB BLOOD ORDERABLES Manjit jayne Result - Final [facility] [address] [place] [address] [phone] * BI Mammogram Screening Tomosynthesis Bilateral (01/05/2025 2:00 PM EDT) Anatomical Region Laterality Modality Breast Bilateral Mammography 01/05/2025 2:00 PM EDT Narrative 01/14/2025 10:59 AM EDT [address] [place] [address] Mammography Report Signed Patient: Nisha Brown MR# : [id number] : 1985 Acct:[id number] Age/Sex: 39 / F ADM Date: 01/05/25 Loc: HO.MAMMO Attending Dr: Jairo Bingham MD Ordering Physician: Jairo Bingham MD Results: 2Be nign Findings Date of Service: 01/05/25 Follow Up: 1 Year From [facility] Mammogram Procedure(s): MM tomosynthesis screening BI Accession Number(s): [id number] cc: Jairo Bingham MD EXAMINATION: MM SCREENING [...] 01/14/25 1057 DD/ 1400 TD/TT: 01/05/25 1415 Morgue Attendant: Procedure Note Donotuseinterpreter, Image - 01/14/2025 [facility] [address] [place] [address] Mammography Report Signed Patient: Kiki Brown# : [id number] : 1985Acct:[id number] Age/Sex: 39 / FADM Date: 01/05/25 Loc: HO.MAMMO Attending Dr: Jairo Bingham MD Ordering Physician: Jairo Bingham MDResults: 2Be nign Findings Date of Service: 01/05/25Follow Up: 1 Year From [facility] Mammogram Procedure(s): MM tomosynthesis screening BI Accession Number(s): [id number] cc: Jairo Bingham MD EXAMINATION: MM SCREENING [...] 01/14/25 1057 DD/ 1400 TD/TT: 01/05/25 1415 Morgue Attendant: Jairo Bingham MD IMG BI PROCEDURES Edited Result - Final * HPV E6/E7 RFLX XENIA 16 18/45 (02/12/2022 3:42 PM EDT) HPV mRNA E6/E7 rflx Not Detected Not Detected [facility] Comment: Methodology: Group Therapist-Mediated Amplification This assay detects E6/E7 viral messenger RNA (mRNA) from 14 high-risk HPV types (16,18,31,33,35,39,45,51,52,56,58,59,66,68). The analytical performance characteristics of this assay have been determined by [employer]. The modifications have not been cleared or approved by the FDA. This assay has been validated pursuant to the CLIA regulations and is used for clinical purposes. For additional information, please refer to http://education.[employer].Kerecis/faq/VZD378d0 (This link if provided for information/ educational purposes only.) THIS TEST WAS PERFORMED AT: [facility] [address] [place] [address] FLO[address],[place] [address] TREY MCELROY MD 02/12/2022 3:42 PM EDT us Harmony Sheldon HISTORICAL/NON ORDERABLE LABS Fi nal Result [facility] [address] [place] [address], * Hm Pap Smear (02/12/2022) us Historical Provider HEALTH MAINTENANCE Final Result from Last 3 Months or Most Recently Relevant to Health Maintenance Insurance [facility] C3 Care Teams Fruit Culler Relationship Specialty Start Date End Date Jairo Bingham MD [address] [place] [address] PCP - General Family Medicine 08/16/18 Teressa Winn [employer] ConsultantCollar Padder Blindstitch 07/19/25
--- OUTSIDE RECORDS SUMMARY | 2025-08-10 10:08 | XMS_ITS | Encounter Summary ---
Author Organization [employer] Address [address] [facility] 7 [place] [address] Care Team Providers Care District Leader Name Role Phone Yolanda Aaron MD Primary Care Provider + Cris Cabrera RN Unavailable [phone] Encounter Details Date Type Department Care Team (Late Contact Info) Description 07/20/2023 Orders Only [facility] [address] [place] [phone] Provider, MD Estelle Social History Tobacco Use [...] 11:15 AM EST Office Visit [facility] [address] [place] [phone] Yolanda Aaron MD [address] [place] [address] documented as of this encounter Procedures Procedure [...] documented as of this encounter Care Teams District Leader Relationship Specialty Start Date End Date Yolanda Aaron MD [address] [place] [address] PCP - General Family Medicine 08/16/18 Cris Cabrera RN [address] [place] [phone] Peach GrowerFireperson 04/25/24 08/03/24 Teressa Winn Peach GrowerFireperson 07/19/25 documented as of this encounter
== END 2025-08-10 09:05 | disposition home or self-care (01) ==
LOC: HO.MRI 09:04
PROVIDERS: PCP Internal Medicine; Visit Provider Internal Medicine
DX: R93.89 Abnormal findings on diagnostic imaging of other specified body structures (principal); Z78.9 Other specified health status
CPT/HCPCS: 74183; A9585

== ENCOUNTER 2025-08-15 11:20 | Outpatient (AMB) | payer MEDICAID, SELFPAY ==
--- NOTE | 2025-08-15 11:23 | A.OFFVIS_ITS ---
Intake Visit Reasons: Ultra sound follow up Allergies No Known Allergies Allergy (Verified 08/15/25 11:24) HPI Comments Details: Patient is here today for a follow up pelvic ultrasound, history of PID. She reports taking her medication in his feeling better. [facility] Medical History Pelvic inflammatory disease (PID) Well woman exam with routine gynecological exam Breast lump Breast pain Pelvic pain Obesity UTI (urinary tract infection) Encounter for screening examination for sexually transmitted disease Bacterial vaginosis Vaginal itching Fibroadenoma Vaginal discharge Vaginal odor Fracture of orbital floor, blow-out, right, closed Problematic vaginal discharge Mass of right breast Microcalcification of left breast on mammography Abnormal Pap smear of cervix Pulmonary embolism Bilateral pulmonary embolism PE (pulmonary thromboembolism) DVT (deep venous thrombosis) Surgical History Hx of tubal ligation Hx of foot surgery Family History Maternal Aunt Breast cancer, Onset Age: 29 Colon cancer Ovarian cancer Brother Diabetes Sister Diabetes Maternal Aunt Metastasis from esophageal cancer Father Colon cancer Family/Other Colon cancer Ovarian cancer Mother Breast cancer Social History Household Members: Children Housing: Apartment Are you a primary ambulatory care nurse to a significant other at home: No Do you presently have visiting nurse or other home services: No Alcohol intake: never Patient Tobacco Use Status: Current everyday Tobacco user Tobacco use type: Cigarette service: No Current occupational status: unemployed Gender identity: Female Female Reproductive History Menstrual Age of Menarche: 13 Review of Systems Const All systems reviewed & are unremarkable except as noted in HPI and below Physical Exam Const General: cooperative, healthy appearing and no acute distress Orientation/consciousness: patient oriented x3 GI Inspection: Yes normal to inspection Palpation (GI): Soft to palpation and Other GI palpation findings present (Nontender) Rectal Exam - Female: visual inspection normal General: Yes bladder normal to palpation External Female Exam: normal appearance of the urethra Speculum Exam - Vagina: normal appearance of the vagina, normal palpation and normal vaginal discharge Speculum Exam - Cervix: normal appearance of the cervix and normal palpation Bimanual exam- vagina & uterus: normal bimanual exam, normal palpation, uterine size normal, bladder normal to palpation, normal palpation, uterine shape normal and non-tender Bimanual Exam- Adnexa, other: normal adnexae Neuro General: patient oriented x3 Results Reviewed Results Reviewed: [address] [address] Ultrasound Report Signed Patient: Nisha Brown MR#: [id number] : 1985 Acct:[id number] Age/Sex: 40 / F ADM Date: 08/09/25 Loc: HO.US Attending Dr: Harmony Sheldon CNM Ordering Physician: Harmony Sheldon CNM Date of Service: 08/09/25 Procedure(s): US pelvic and transvaginal Accession Number(s): [id number] cc: Yolanda Aaron MD; Harmony Sheldon CNM~ Reason for Exam: R10.2 - Pelvic and perineal pain EXAMINATION: US PELVIS CLINICAL INFORMATION: Pelvic and perineal pain. R10.2. COMPARISON: February 26, 2024 TECHNIQUE: Ultrasound of the pelvis is performed using both transabdominal and transvaginal transducers along with Doppler. Transvaginal imaging is performed due to inadequate visualization transabdominally. FINDINGS: Uterus: The uterus is in retroversion flexion and measures 9 x 5 x 7 cm. Volume: 155 cc. The double wall endometrial thickness is 12 mm. The uterus is smooth in contour and has normal myometrial echogenicity. 0.6 cm anechoic structure in the myometrium, body of the uterus. No solid lesion. Adnexa: The ovaries are identified with flow on color Doppler interrogation.. There is no pelvic ascites or fluid collection. No free fluid in the cul-de-sac. Right ovary measures 3 x 1 x 2 cm. Volume: 3 cc. 0.9 cm anechoic structure adjacent to the ovary. Left ovary measures 3 x 3 x 3 cm. Volume: 13 cc. There is a 2.7 cm heterogeneous probably septated mixed iso to hypoechoic abnormality. US/US pelvic and transvaginal IMPRESSION: No ovarian torsion. 2.7 cm probable hemorrhagic cyst versus endometrioma, left ovary. 0.9 cm cyst, right paraovarian. Uterus in retroversion flexion position. 0.6 cm cystic lesion, myometrium. Electronically signed by: David Dash MD 08/09/2025 03:32 PM EDT RP Dictated By: David Anne MD Signed By: <Electronically signed by David Castelan MD in OV> 08/09/25 1532 DD/ 1500 TD/TT: 08/09/25 1513 Noc Analyst: Assessment & Plan Assessment & Plan (1) Pelvic inflammatory disease (PID): Code(s): N73.9 - Female pelvic inflammatory disease, unspecified Category: Medical Plan Discussed: IMPRESSION: No ovarian torsion. 2.7 cm probable hemorrhagic cyst versus endometrioma, left ovary. 0.9 cm cyst, right paraovarian. Uterus in retroversion flexion position. 0.6 cm cystic lesion, myometrium. Reviewed findings with patient, plan ultrasound follow up and results appointment. Advised to call if any changes such as pelvic pain for sooner evaluation. Advised safe sex and use of condoms consistently. The patient expressed understanding and agreement with the plan of care. All of her questions and concerns were addressed to the best of my ability. This note is constructed using voice recognition software. While every effort has been made to ensure accuracy, neonatal intensive care unit nurse errors may have been included. Coding Level of Care Code Est Pt Level 3 (85291) Diagnoses Pelvic inflammatory disease (PID) N73.9
--- OUTSIDE RECORDS SUMMARY | 2025-08-15 14:25 | XMS_ITS | Encounter Summary ---
Author Organization [employer] Address [address] [facility] [address] [place] [address] Care Team Providers Care Men'S Basketball Coach Name Role Phone Yolanda Aaron MD Primary Care Provider + Cris Cabrera RN Unavailable [phone] Encounter Details Date Type Department Care Team (Late st Contact Info) Description 12/01/2022 Abstract [facility] [address] [place], [place] [phone] Yolanda Aaron MD [address] [place], [place] [phone] Social History Tobacco Use Types Packs/Day Years [...] AM EST Office Visit [facility] [address] [place] [phone] Yolanda Aaron MD [address] [place] [address] documented as of this encounter Visit Diagnoses Not on filedocumented in this encounter Additional Health Concerns Assessment Noted Time PHQ-9 Depression Total Score: 11 023 11:41 AM EST documented as of this encounter Care Teams Men'S Basketball Coach Relationship Specialty Start Date End Date Yolanda Aaron MD [address] [place] [address] PCP - General Family Medicine 08/16/18 Cris Cabrera RN [address] [place] [phone] Compensation ManagerCustom Miller 04/25/24 08/03/24 Teressa Winn Compensation ManagerCustom Miller 07/19/25 documented as of this encounter
--- OUTSIDE RECORDS SUMMARY | 2025-08-15 14:25 | XMS_ITS | Encounter Summary ---
Author Organization [employer] Address [address] [facility] [address] 7[address] [place] [address] Care Team Providers Care Lead Designer Name Role Phone Yolanda Aaron MD Primary Care Provider + Encounter Details Date Type Department Care Team (Latest Contact Info) Description 08/10/2025 Results Follow-Up [facility] [address] [place] [address] Yolanda Aaron MD [address] [place] [address] US Pelvis Transvaginal Social History Tobacco Use Types Packs/Day Years [...] as of this encounter Miscellaneous Notes * Result Encounter Note - Yolanda Aaron MD - 08/10/2025 4:06 PM EDT Pelvic ultrasound on 08/09/2025 ordered by catering driver showed bilateral ovarian cyst, patient is to follow-up with catering driver. documented in this encounter Plan of Treatment Upcoming Encounters Date Type Department Care Team (Late st Contact Info) Description 09/29/2025 11:15 AM EST Office Visit [facility] [address] [place] [address] Yolanda Aaron MD [address] [place] [address] documented as of this encounter Visit Diagnoses Not on filedocumented in this encounter Additional Health Concerns Assessment Noted Time PHQ-9 Depression Total Score: 22 025 11:10 AM EDT documented as of this encounter Care Teams Lead Designer Relationship Specialty Start Date End Date Yolanda Aaron MD [address] [place] [address] PCP - General Family Medicine 08/16/18 Teressa Winn Atomic WelderFurnace Setter 07/19/25 documented as of this encounter
--- OUTSIDE RECORDS SUMMARY | 2025-08-15 14:25 | XMS_ITS | Clinical Summary ---
Author Organization [employer] Address [address] [facility] [address] [place] [address] Care Team Providers Care Analog Ic Design Architect Name Role Phone Jairo Bingham MD Primary Care Provider + Allergies No known active allergies Medications * This document contains information received from the source organization and may not represent a complete record from that organization. Calcium Carb-Cholecalci ferol 500-10 MG-MCG tablet Take 1 tablet by mouth in the morning and at bedtime. 2 Active ergocalciferol (Vitamin D2) 1.25 MG (33661 UT) capsule TAKE 1 CAPSULE BY MOUTH [...] steroid injection. Bipolar I disorder with depression (CMS/[facility]) 02/202411/30/2023 Elevated liver enzymes 11/30/2023 Panic [...] referred to AUD program. Fu closely with defensive line coach Hep B up to date Varicose [...] that she can drop of att he frontend engineer and request a referral at [facility] [...] be referred to [facility] for Support and Recovery program. 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 F yearly with hematology Re consutl [...] is able to initiate care with her [facility] agency prescriber, she will go ahead and do that instead. She should call [facility] and/or consult her PCP with any [...] close fu with mental health provider and defensive line coach Counseled to cut down etoh use [...] Plan (12/03/2022 11:27 AM EST): FU by GAMING TABLE OPERATOR. Pat for PAP and pelvic US [...] organization. Date Type Department Care Team Description 08/10/2025 Results Follow-Up [facility] [address] [place] [address] Jairo Bingham MD US Pelvis Transvaginal 07/19/2025 Telephone [facility] & PEDS [address] [place] [address] Jairo Bingham MD Care Coordination (ICP Care Plan) 07/18/2025 Orders Only GENERIC EXTERNAL DATA DEPARTMENT Provider, Generic External Data 07/14/2025 3:00 PM EDT Office Visit [facility] [address] [place] [address] Karen, Kaci, SPED TEACHER Thiamine deficiency neuropathy (Primary Dx) 07/14/2025 Travel 07/11/2025 Telephone [facility] [address] [place] [address] Kriss Montes RN appt. reschedule 06/29/2025 Orders Only GENERIC EXTERNAL DATA DEPARTMENT Provider, Generic External Data 06/12/2025 Orders Only GENERIC EXTERNAL DATA DEPARTMENT Provider, Generic External Data 05/25/2025 Results Follow-Up [facility] [address] [place] [address] Jairo Bingham MD US Abdomen Comp w elastography from Last 3 Months Immunizations Immunization Administration [...] Description 09/29/2025 11:15 AM EST Office Visit [facility] [address] [place] [address] Jairo Bingham MD [address] [place] [address] Health Maintenance Due Date Last Done Comments [...] Monitoring 09/16/2025 03/16/2025, 025 Mammogram 01/05/2026 01/05/2025, 030 04/2024, 12/25/2022, Additional history exists Disability Screening [...] Procedure Name Priority Date/Time Associated Diagnosis Comments MR ABDOMEN W AND WO CONTRAST Routine 08/11/2025 2:29 PM EDT US PELVIS TRANSVAGINAL Routine 3:00 PM EDT [...] METABOLIC PANEL Routine 06/12/2025 12:00 AM EDT HEPATITIS PANEL, GENERAL Routine 03/30/2025 [...] Recently Relevant to Health Maintenance Results * MR Abdomen w/ and w/o Contrast (08/11/2025 2:29 PM EDT) Anatomical Region Laterality Modality Abdomen Magnetic Resonan ce 08/11/2025 2:29 PM EDT Narrative 08/11/2025 2:30 PM EDT [place] [address] Magnetic Resonance Report Signed Patient: Nisha Brown MR# : [id number] : 1985 Acct:[id number] Age/Sex: 40 / F ADM Date: 08/10/25 Loc: HO.MRI Attending Dr: Digna Torres MD Ordering Physician: Digna Torres MD Date of Service: 08/10/25 Procedure(s): MR abdomen wo/w con Accession Number(s): [id number] cc: Jairo Bingham MD; Digna Torres MD Reason for Exam: Other specified health status, abn findings on u/s, liver CLINICAL HISTORY: Other specified health status, abn findings on u s, liver MR abdomen with and without contrast Comparison: US/SR - US ABDOMEN COMPLETE WITH LIVER ELASTOGRAPHY - 05/10/25 08:[address]/SR - CT ABDOMEN PELVIS WITHOUT IV CONTRAST - 12/05/22 19:12 EST Findings: No signal abnormality in the lung bases. Unremarkable gallbladder. No intrahepatic or extrahepatic biliary ductal dilatation. The liver is normal in size, measuring 16.6 cm in craniocaudal dimension. No lobular contour of the liver capsular other cirrhotic liver morphology. There is loss of signal in the liver on the out of phase images indicating hepatic steatosis with focal fatty sparing at the gallbladder fossa. No abnormal enhancement. The spleen is mildly enlarged, measuring 12.3 cm in craniocaudal dimension. The other solid organs are unremarkable. No bowel wall thickening or dilation. No aneurysm. No lymphadenopathy. No ascites. Mild scoliosis. Hemangioma in L2 measuring 1.3 cm. Increased signal on the T2 weighted images at the superior endplate of L5 at the right aspect, degenerative Impression: Hepatic steatosis. No MR evidence of cirrhosis. Mild splenomegaly. This document has been electronically signed by: Latasha Tavera MD on 08/11/2025 14:29:13 Dictated By: Latasha Rodriguez MD Signed By: <Electronically signed by Latasha Rodriguez MD in OV> 08/11/25 1430 DD/ 28 TD/TT: 08/11/25 1429 Armored Car Guard And Driver: Procedure Note Donotuseinterpreter, Image - 08/11/2025 [place] [address] Magnetic Resonance Report Signed Patient: Kiki Brown# : [id number] : 1985Acct:[id number] Age/Sex: 40 / FADM Date: 08/10/25 Loc: HO.MRI Attending Dr: Digna Torres MD Ordering Physician: Digna Torres MD Date of Service: 08/10/25 Procedure(s): MR abdomen wo/w con Accession Number(s): [id number] cc: Jairo Bingham MD; Digna Torres MD Reason for Exam: Other specified health status, abn findings on u/s,liver CLINICAL HISTORY: Other specified health status, abn findings on u s,liver MR abdomen with and without contrast Comparison: US/SR - US ABDOMEN COMPLETE WITH LIVER ELASTOGRAPHY - 05/10/25 08:[address]/SR - CT ABDOMEN PELVIS WITHOUT IV CONTRAST - 12/05/22 19:12 EST Findings: No signal abnormality in the lung bases. Unremarkable gallbladder. No intrahepatic or extrahepatic biliary ductal dilatation. The liver is normal in size, measuring 16.6 cm in craniocaudal dimension. No lobular contour of the liver capsular other cirrhotic liver morphology. There is loss of signal in the liver on the out of phase images indicating hepatic steatosis with focal fatty sparing at the gallbladder fossa. No abnormal enhancement. The spleen is mildly enlarged, measuring 12.3 cm in craniocaudal dimension. The other solid organs are unremarkable. No bowel wall thickening or dilation. No aneurysm. No lymphadenopathy. No ascites. Mild scoliosis. Hemangioma in L2 measuring 1.3 cm. Increased signal on the T2 weighted images at the superior endplate of L5 at the right aspect, degenerative Impression: Hepatic steatosis. No MR evidence of cirrhosis. Mild splenomegaly. This document has been electronically signed by: Latasha Tavera MD on 08/11/2025 14:29:13 Dictated By: Latasha Rodriguez MD Signed By: <Electronically signed by Latasha Rodriguez MD in OV> 08/11/25 1430 DD/ 1429 TD/TT: 08/11/25 1429 Armored Car Guard And Driver: us [facility] External Provider IMG MRI PROCEDURES Final Result * US Pelvis Transvaginal (08/09/2025 3:00 PM EDT) Anatomical Region Laterality Modality Pelvis Ultrasound 08/09/2025 3:00 PM EDT Narrative 08/09/2025 3:35 PM EDT [address] [address] Ultrasound Report Signed Patient: Nisha Brown MR# : [id number] : 1985 Acct:[id number] Age/Sex: 40 / F ADM Date: 08/09/25 Loc: HO.US Attending Dr: Harmony Sheldon CNM Ordering Physician: Harmony Sheldon CNM Date of Service: 08/09/25 Procedure(s): US pelvic and transvaginal Accession Number(s): [id number] cc: Jairo Bingham MD; Harmony Sheldon CNM [...] 08/09/25 1532 DD/ 1500 TD/TT: 08/09/25 1513 Armored Car Guard And Driver: Procedure Note Donotuseinterpreter, Image - 08/09/2025 [place] [address] Ultrasound Report Signed Patient: Kiki Brown# : [id number] : 1985Acct:[id number] Age/Sex: 40 / FADM Date: 08/09/25 Loc: HO.US Attending Dr: Harmony Sheldon CNM Ordering Physician: Harmony Sheldon CNM Date of Service: 08/09/25 Procedure(s): US pelvic and transvaginal Accession Number(s): [id number] cc: Jairo Bingham MD; Harmony Sheldon CNM [...] 08/09/25 1532 DD/ 1500 TD/TT: 08/09/25 1513 Armored Car Guard And Driver: us [facility] External Provider IMG US PROCEDURES Final Result * (ABNORMAL) Lipid Panel with Reflex to Direct LDL (07/18/2025 8:26 AM EDT) Triglycerides 90 <150 mg/dL [facility] Comment:Desirable Triglyceri de: less than 150 mg/dLBorderline High Triglyceride 150-199 mg/dLHigh Triglyceride: 200-499 mg/dLVery High Triglyceride: greater than or equal to 5OO mg/dL Cholesterol 136 <200 mg/dL [facility] Comment:Desirable Cholestero l: less than 200 mg/dLBorderline High Cholesterol: 200-239 mg/dLHigh Cholesterol: greater than 239 mg/dL LDL Cholesterol Calculated 83 <100 mg/dL [facility] Comment:Desirable LDL: less than 100 mg/dLNear Optimal/Above Optimal LDL: 110- 129 mg/dLBorderline High LDL: 130-159 mg/dLHigh LDL: 160-189 mg/dLVery High LDL: greater than or equal to 190 mg/dL HDL Cholesterol 35(L) >40 mg/dL [facility] Comment:Desirable HDL: great er than 40 mg/dL Note: This HDL assay may give artificially low results in patients with liver disease. 07/18/2025 8:26 AM EDT 07/18/2025 8:26 AM EDT us Generic External Data Provider LAB BLOOD ORDERAB LES Final Result [facility] [address] [place] [address] [phone] * (ABNORMAL) Comprehensive Metabolic Panel, Fasting (06/29/2025 10:55 AM EDT) Sodium 143 135 - 145 mmol/L [facility] Potassium 4.1 3.3 - 5.1 mmol/L [facility] Chloride 109(H) 96 - 108 mmol/L [facility] Carbon Dioxide 25 22 - 29 mmol/L [facility] Anion Gap 13 12 - 20 [facility] Urea Nitrogen (BUN) 10 9 - 16 mg/dL [facility] Creatinine, Serum 0.73 0.5 - 1.4 mg/dL [facility] Estimated Glomerular Filt Rate >60 [facility] Comment:Chronic Kidney Disea se: Estimated GFR < 60 mL/min/1.75h0Btegaf Kidney Disease: Estimated GFR < 15 mL/min/1.73m2 Glucose Fasting 79 60 - 99 mg/dL [facility] Calcium 8.9 8.4 - 10.2 mg/dL [facility] Bilirubin, Total 0.5 0.0 - 1.0 mg/dL [facility] Aspartate Amino Transferase 65(H) 5 - 31 U/L [facility] Alanine Aminotransferase 84(H) 0 - 31 U/L [facility] Total Protein 7.3 6.5 - 8.0 g/dL [facility] Albumin Level 4.1 3.5 - 5.0 g/dL [facility] Alkaline Phosphatase 77 39 - 117 U/L [facility] 06/29/2025 10:5 5 AM EDT 06/29/2025 10:55 AM EDT us Generic External Data Provider LAB BLOOD ORDERAB LES Final Result Performing Organization Address City/[facility]/ZIP Co de Phone Number [facility] [address] [place] [phone] * Vitamin B12 (Cobalamin) and Folate Panel, Serum (06/29/2025 10:55 AM EDT) Vitamin B12 473 200 - 900 pg/mL [facility] Comment:NORMAL 200-900 PG/ML INDETERMINATE 160-199 PG/ML DEFICIENT < 160 PG/ML Folate 9.3 > or = 4.0 ng/mL [facility] Comment:Reference Values:> o r = 4.0 ng/mL< 4.0 ng/mL suggests folate deficiency Methotrexate, aminopterin and folinic acid(leucovorin) are chemotherapeutic agents whose molecularstructures are similar to folate; therefore, the Architectfolate assay cannot be used for patients using these drugs. 06/29/2025 10:5 5 AM EDT 06/29/2025 10:55 AM EDT us Generic External Data Provider LAB BLOOD ORDERAB LES Final Result Performing Organization Address [facility] Co de Phone Number [facility] [address] [place] [phone] * TSH with Reflex to Free T4 (06/29/2025 10:55 AM EDT) TSH reflex Free T4 1.34 0.32 - 4.0 uIU/mL [facility] 06/29/2025 10:5 5 AM EDT 06/29/2025 10:55 AM EDT us Generic External Data Provider LAB BLOOD ORDERAB LES Final Result Performing Organization Address City/[facility]/ZIP Co de Phone Number [facility] [address] [place] [phone] * Lyme Disease Ab with Reflex to Blot (IgG, IgM) (06/29/2025 10:55 AM EDT) [facility] Lyme Antibody Screen <0.90 index [facility] Comment:Index Interpretation ----- < 0.90 [...] when erythemamigrans is apparent.THIS TEST WAS PERFORMED AT:[facility] [place] [id number] MCELROY MD Lyme Blot [facility] 06/29/2025 10:5 5 AM EDT 06/29/2025 10:55 AM EDT us Generic External Data Provider LAB BLOOD ORDERAB LES Final Result [facility] [address] [place] [phone] * CBC auto differential (06/29/2025 10:55 AM EDT) [facility] White Blood Count 7.7 4.8 - 10.8 X10*3/uL [facility] Red Blood Count 4.60 4.20 - 5.50 X10*6/uL [facility] Hemoglobin 13.9 12.0 - 16.0 g/dl [facility] Hematocrit 41.4 37.0 - 47.0 % [facility] Mean Corpuscular Volume 90.0 80.0 - 98.0 fL [facility] Mean Corpuscular Hemoglobin 30.2 27.0 - 33.0 pg [facility] Mean Corpuscular HGB Conc 33.6 31.0 - 35.0 g/dl [facility] Red Cell Distribution Width 12.4 11.0 - 16.0 % [facility] Platelet Count 298 160 - 400 X10*3/uL [facility] Mean Platelet Volume 10.3 9.4 - 12.3 fL [facility] Neutrophils Percent Auto 67.2 45 - 73 % [facility] Imm Gran Pct Auto 0.3 0.0 - 0.4 % [facility] Lymphocytes Percent Auto 24.9 20 - 40 % [facility] Monocytes Percent Auto 6.6 2 - 11 % [facility] Eosinophils Percent Auto 0.5 0 - 4 % [facility] Basophils Percent Auto 0.5 0 - 2 % [facility] NRBC Pct Auto 0.0 0.0 - 0.2 /100WBC [facility] Neutrophils Absolute Auto 5.2 2.0 - 8.3 x10*3/uL [facility] Imm Gran Abs Auto 0.02 0.00 - 0.03 X10*3/uL [facility] Lymphocytes Absolute Auto 1.9 1.2 - 4.9 X10*3/uL [facility] Monocytes Absolute Auto 0.5 0.1 - 1.2 X10*3/uL [facility] Eosinophils Absolute Auto 0.0 0.0 - 0.4 X10*3/uL [facility] Basophils Absolute Auto 0.0 0.0 - 0.2 X10*3/uL [facility] NRBC Abs Auto 0.000 0.0 - 0.012 X10*3/uL [facility] 06/29/2025 10:5 5 AM EDT 06/29/2025 10:55 AM EDT us Generic External Data Provider LAB BLOOD ORDERAB LES Final Result [facility] [address] [place] [phone] * Methylmalonic Acid (06/29/2025 10:55 AM EDT) Methylmalonic Acid 141 55 - 335 nmol/L [facility] Comment: Serum methylmalonic acid (MMA) [...] outcomes,such as neural tube defects and intrauterine growthrestriction.[employer] utilized Multi-Modal Decomposition(MMD) analysis to establish first and second trimester-specific MMA reference intervals in , as givenbelow:MMA, First trimester (<13 wks gestation): 58-167 nmol/LMMA, Second trimester (13-23 wks gestation):63-241 nmol/LThis test was developed and its analytical performancecharacteristics have been determined by [employer] [facility]. It has not been cleared or approved by theFDA. This assay has been validated pursuant to the CLIAregulations and is used for clinical purposes.THIS TEST WAS PERFORMED AT:[id number] [place] [address]EDRAQUOGINETTE WARREN MD,PHD 06/29/2025 10:5 5 AM EDT 06/29/2025 10:55 AM EDT us Generic External Data Provider LAB BLOOD ORDERAB LES Final Result [facility] [address] [place] [phone] * (ABNORMAL) Iron And Total Iron Binding Capacity (06/29/2025 10:55 AM EDT) Iron 90 30 - 160 mcg/dL [facility] Total Iron Binding Capacity 215(L) 228 - 428 mcg/dL [facility] Percent Iron Saturation 42 15 - 50 % [facility] Unsaturated Iron Binding 125 ug/dL [facility] 06/29/2025 10:5 5 AM EDT 06/29/2025 10:55 AM EDT us Generic External Data Provider LAB BLOOD ORDERAB LES Final Result Performing Organization Address City/[facility]/ZIP Co de Phone Number [facility] [address] [place] [phone] * Sed Rate by Modified Altagraciaren (06/29/2025 10:55 AM EDT) Erythrocyte Sedimentation Rate 18 0 - 20 MM/HR [facility] Comment:Patients with polycy themia and many hemoglobin abnormalitiesmay have depressed sed rates whereas patients with anemiamay have elevated sed rates. 06/29/2025 10:5 5 AM EDT 06/29/2025 10:55 AM EDT us Generic External Data Provider LAB BLOOD ORDERAB LES Final Result Performing Organization Address [facility] Co de Phone Number [facility] [address] [place] [phone] * (ABNORMAL) C-reactive Protein (06/29/2025 10:55 AM EDT) C Reactive Protein 1.98(H) < or = 0.50 mg/dL [facility] 06/29/2025 10:5 5 AM EDT 06/29/2025 10:55 AM EDT us Generic External Data Provider LAB BLOOD ORDERAB LES Final Result Performing Organization Address [facility] Co de Phone Number [facility] [address] [place] [phone] * (ABNORMAL) Vitamin B1 (06/29/2025 10:55 AM EDT) Vitamin B1 <6(A) 8 - 30 nmol/L [facility] Comment:Vitamin supplementat ion within 24 hours prior toblood draw may affect the accuracy of the results.This test was developed and its analytical performancecharacteristics have been determined by [facility] [place], [place]. It hasnot been cleared or approved by the .S. Food and DrugAdministration. This assay has been validated pursuantto the CLIA regulations and is used for clinicalpurposes.THIS TEST WAS PERFORMED AT:[facility] [id number] [place] [id number] WARREN MD,PHD 06/29/2025 10:5 5 AM EDT 06/29/2025 10:55 AM EDT us Generic External Data Provider LAB BLOOD ORDERAB LES Final Result [facility] [address] [place] [phone] * Vitamin B6, Plasma (06/29/2025 10:55 AM EDT) Vitamin B6 5.3 2.1 - 21.7 ng/mL [facility] Comment:Vitamin supplementat ion within 24 hours prior toblood draw may affect the accuracy of the results.This test was developed and its analytical performancecharacteristics have been determined by [facility] [place], [place]. It hasnot been cleared or approved by the U.S. Food and DrugAdministration. This assay has been validated pursuantto the CLIA regulations and is used for clinicalpurposes.THIS TEST WAS PERFORMED AT:[facility] [id number] [place] [address]UBFPKWFGINETTE WARREN MD,PHD 06/29/2025 10:5 5 AM EDT 06/29/2025 10:55 AM EDT us Generic External Data Provider LAB BLOOD ORDERAB LES Final Result Performing Organization Address City/[facility]/ZIP Co de Phone Number [facility] [address] [place] [phone] * Magnesium (06/29/2025 10:55 AM EDT) Pathologist [facility] Magnesium 2.2 1.6 - 2.6 mg/dL [facility] 06/29/2025 10:5 5 AM EDT 06/29/2025 10:55 AM EDT Generic External Data Provider LAB BLOOD ORDERAB LES Final Result Performing Organization Address [facility] Co de Phone Number [facility] [address] [place] [phone] * Homocysteine (06/29/2025 10:55 AM EDT) [facility] Homocysteine 6.8 < or = 11.0 umol/L [facility] Comment:Homocysteine is incr eased by functional deficiency offolate or vitamin B12. Testing for methylmalonic aciddifferentiates between these deficiencies. Other causesof increased homocysteine include renal failure, folateantagonists such as methotrexate and phenytoin, andexposure to nitrous oxide.Kendrick Downing, et al., Kristie [employer] Med. 1999;131(5):331-9.THIS TEST WAS PERFORMED AT:[facility] [place] [id number] MCELROY MD 06/29/2025 10:5 5 AM EDT 06/29/2025 10:55 AM EDT Generic External Data Provider LAB BLOOD ORDERAB LES Final Result Performing Organization Address [facility] Co de Phone Number [facility] [address] [place] [phone] * Hemoglobin A1c (06/29/2025 10:55 AM EDT) Pathologist [facility] Hemoglobin A1c 5.4 <6.0 % [facility] Comment:Hemoglobin A1C Refer ence Range Adults: 4.8 - 6.0 % Non diabetic: < 6.0 % Goal: < 7.0 %Additional Action Suggested: > 8.0 %Note: Hemoglobin A1c results are invalid for patients with abnormal amounts of HbF. Blood transfusions may impact the HbA1c concentration in the patient sample. Estimated Average Glucose 108 mg/dL [facility] Comment:eAG = Estimated ave rage glucose which is %A1C expressed asaverage glucose, using the formula of the H0C-RittzanPywuihp Glucose study (ADAG), Diabetes Care, Vol.31,#8,May. 2007 06/29/2025 10:5 5 AM EDT 06/29/2025 10:55 AM EDT Generic External Data Provider LAB BLOOD ORDERAB LES Final Result Performing Organization Address [facility] Co de Phone Number [facility] [address] [place] [phone] * (ABNORMAL) Ferritin (06/29/2025 10:55 AM EDT) Ferritin 500(H) 10 - 250 ng/mL [facility] 06/29/2025 10:5 5 AM EDT 06/29/2025 10:55 AM EDT Generic External Data Provider LAB BLOOD ORDERAB LES Final Result Performing Organization Address [facility] Co de Phone Number [facility] [address] [place] [phone] * (ABNORMAL) Prothrombin Time-INR (06/12/2025 11:13 AM EDT) Prothrombin Time 12.5(H) 10.9 - 12.4 SEC [facility] INTERNATIONAL NORM RATIO 1.1 0.9 - 1.1 [facility] Comment:INTERNATIONAL NORMAL IZED RATIO (INR) [...] Provider LAB BLOOD ORDERAB LES Final Result [facility] [address] [place] [phone] * CBC (06/12/2025 11:13 AM EDT) White Blood Count 7.0 4.8 - 10.8 X10*3/uL [facility] Red Blood Count 4.69 4.20 - 5.50 X10*6/uL [facility] Hemoglobin 13.9 12.0 - 16.0 g/dl [facility] Hematocrit 42.9 37.0 - 47.0 % [facility] Mean Corpuscular Volume 91.5 80.0 - 98.0 fL [facility] Mean Corpuscular Hemoglobin 29.6 27.0 - 33.0 pg [facility] Mean Corpuscular HGB Conc 32.4 31.0 - 35.0 g/dl [facility] Red Cell Distribution Width 12.5 11.0 - 16.0 % [facility] Platelet Count 290 160 - 400 X10*3/uL [facility] Mean Platelet Volume 10.3 9.4 - 12.3 fL [facility] NRBC Pct Auto 0.0 0.0 - 0.2 /100WBC [facility] NRBC Abs Auto 0.000 0.0 - 0.012 X10*3/uL [facility] 06/12/2025 11:1 3 AM EDT 06/12/2025 11:49 AM EDT us Generic External Data Provider LAB BLOOD ORDERAB LES Final Result Performing Organization Address City/[facility]/ZIP Co de Phone Number [facility] [address] [place] [phone] * (ABNORMAL) Comprehensive Metabolic Panel (06/12/2025 12:00 AM EDT) Sodium 143 135 - 145 mmol/L [facility] Potassium 4.0 3.3 - 5.1 mmol/L [facility] Chloride 109(H) 96 - 108 mmol/L [facility] Carbon Dioxide 26 22 - 29 mmol/L [facility] Anion Gap 12 12 - 20 [facility] Urea Nitrogen (BUN) 12 9 - 16 mg/dL [facility] Creatinine, Serum 0.79 0.5 - 1.4 mg/dL [facility] Estimated Glomerular Filt Rate >60 [facility] Comment:Chronic Kidney Disea se: Estimated GFR < 60 mL/min/1.13r2Oumkcf Kidney Disease: Estimated GFR < 15 mL/min/1.73m2 Glucose 85 60 - 115 mg/dL [facility] Calcium 9.1 8.4 - 10.2 mg/dL [facility] Bilirubin, Total 0.4 0.0 - 1.0 mg/dL [facility] Aspartate Amino Transferase 40(H) 5 - 31 U/L [facility] Alanine Aminotransferase 64(H) 0 - 31 U/L [facility] Total Protein 7.3 6.5 - 8.0 g/dL [facility] Albumin Level 4.2 3.5 - 5.0 g/dL [facility] Alkaline Phosphatase 76 39 - 117 U/L [facility] 06/12/2025 06/12/2025 Generic External Data Provider LAB BLOOD ORDERAB LES Final Result Performing Organization Address City/[facility]/ZIP Co de Phone Number [facility] [address] [place] [address] [phone] * Hepatitis Panel, General (03/30/2025 9:16 AM EDT) Hepatitis A IgM Nonreactive Nonreactive [facility] Comment:IgM antibodies to PFEIFFER V not detected; does not exclude earlyacute or recovered HAV infection. ~Hepatitis B Surface Antibody REACTIVE Nonreactive [facility] Comment:REACTIVE: > 11.99 mI U/mL Hepatitis B Core Antibody Nonreactive Nonreactive [facility] Hepatitis C Antibody Nonreactive Nonreactive [facility] Comment:Antibodies to HCV no t detected; does not exclude early acuteHCV infection. Hepatitis B Surface Ag Negative Negative [facility] Blood 03/30/2025 9:16 AM EDT 03/30/2025 11:37 AM EDT Jairo Bingham MD LAB BLOOD ORDERABLES Fin al Result [facility] [address] [place] [phone] * HIV-1/2 Antigen and Antibodies, Fourth Generation, with Reflexes (03/30/2025 9:16 AM EDT) HIV AB/AG Nonreactive Nonreactive [facility] Comment:HIV-1 p24 Ag and/or HIV-1/HIV-2 Ab not detected.A test result that is nonreactive does not exclude thepossibility of exposure to or infection with HIV-1 and/orHIV-2. Nonreactive results in this assay for individualswith prior exposure to HIV-1 and/or HIV-2 may be due toantigen and antibody levels that are below the limit ofdetection of this assay.The Raiing HIV Ag/Ab Combo assay result andsupplemental assay results should be interpreted inconjunction with the patient's clinical presentation,history and other laboratory results. If the results areinconsistent with clinical evidence, additional testing issuggested to confirm the result. Blood Venous blood specimen / Unknown 03/30/2025 9:16 AM EDT 03/30/2025 11:37 AM EDT us Jairo Bingham MD LAB BLOOD ORDERABLES Manjit jayne Result - Final [facility] [address] [facility] [place] [address] [phone] * BI Mammogram Screening Tomosynthesis Bilateral (01/05/2025 2:00 PM EDT) Anatomical Region Laterality Modality Breast Bilateral Mammography 01/05/2025 2:00 PM EDT Narrative 01/14/2025 10:59 AM EDT [address] [place] [address] Mammography Report Signed Patient: Nisha Brown MR# : [id number] : 1985 Acct:[id number] Age/Sex: 39 / F ADM Date: 01/05/25 Loc: .MAMMO Attending Dr: Jairo Bingham MD Ordering Physician: Jairo Bingham MD Results: 2Be nign Findings Date of Service: 01/05/25 Follow Up: 1 Year From Orig inal Mammogram Procedure(s): MM tomosynthesis screening BI Accession Number(s): [id number] cc: Jairo Bingham MD EXAMINATION: MM SCREENING [...] 01/14/25 1057 DD/ 1400 TD/TT: 01/05/25 1415 Armored Car Guard And Driver: Procedure Note Donotuseinterpreter, Image - 01/14/2025 [facility] [address] [place] [address] Mammography Report Signed Patient: Kiki Brown# : [id number] : 1985Acct:[id number] Age/Sex: 39 / FADM Date: 01/05/25 Loc: HO.MAMMO Attending Dr: Jairo Bingham MD Ordering Physician: Jairo Bingham MDResults: 2Be nign Findings Date of Service: 01/05/25Follow Up: 1 Year From Orig inal Mammogram Procedure(s): MM tomosynthesis screening BI Accession Number(s): [id number] cc: Jairo Bingham MD EXAMINATION: MM SCREENING [...] 01/14/25 1057 DD/ 1400 TD/TT: 01/05/25 1415 Armored Car Guard And Driver: Jairo Bingham MD IMG BI PROCEDURES Edited Result - Final * HPV E6/E7 RFLX XENIA 16 18/45 (02/12/2022 3:42 PM EDT) HPV mRNA E6/E7 rflx Not Detected Not Detected [facility] Comment: Methodology: Machinist Apprentice Wood-Mediated Amplification This assay detects E6/E7 viral messenger RNA (mRNA) from 14 high-risk HPV types (16,18,31,33,35,39,45,51,52,56,58,59,66,68). The analytical performance characteristics of this assay have been determined by [employer]. The modifications have not been cleared or approved by the FDA. This assay has been validated pursuant to the CLIA regulations and is used for clinical purposes. For additional information, please refer to http://education.Paymentus/faq/PUQ469r5 (This link if provided for information/ educational purposes only.) THIS TEST WAS PERFORMED AT: [facility] [address] [place] [address],[place] [address] TREY MCELROY MD 02/12/2022 3:42 PM EDT [facility]on HISTORICAL/NON ORDERABLE LABS Fi nal Result [facility] [address] * Hm Pap Smear (02/12/2022) Historical Provider HEALTH MAINTENANCE Final Result from Last 3 Months or Most Recently Relevant to Health Maintenance Insurance [facility] C3 Care Teams Analog Ic Design Architect Relationship Specialty Start Date End Date Jairo Binhgam MD [address] [place] [address] PCP - General Family Medicine 08/16/18 Teressa Winn Disaster Recovery ConsultantCorporate Officer 07/19/25
--- OUTSIDE RECORDS SUMMARY | 2025-08-15 14:25 | XMS_ITS | Encounter Summary ---
Author Organization [employer] Address [address] [facility] 7t [place] [address] Care Team Providers Care Dairy Feed Worker Name Role Phone Yolanda Aaron MD Primary Care Provider + Cris Cabrera RN Unavailable [phone] Encounter Details Date Type Department Care Team (Late Contact Info) Description 07/20/2023 Orders Only [facility] [address] [place] [phone] Provider, MD Estelle Social History Tobacco Use [...] Description 09/29/2025 11:15 AM EST Office Visit [facility] [address] [place] [address] Yolanda Aaron MD [address] [place] [address] documented as of this encounter Procedures Procedure [...] documented as of this encounter Care Teams Dairy Feed Worker Relationship Specialty Start Date End Date Yolanda Aaron MD [address] [place] [address] PCP - General Family Medicine 08/16/18 Cris Cabrera RN [address] [place] [phone] Jewel StripperShark Biologist 04/25/24 08/03/24 Teressa Winn Jewel StripperShark Biologist 07/19/25 documented as of this encounter
--- OUTSIDE RECORDS SUMMARY | 2025-08-15 14:25 | XMS_ITS | Encounter Summary ---
Author Organization [employer] Address [address] [facility] [address] 7t [place] [address] Care Team Providers Care School Cafeteria Head Cook Name Role Phone Yolanda Aaron MD Primary Care Provider + Cris Cabrera RN Unavailable [phone] Encounter Details Date Type Department Care Team (Late st Contact Info) Description 08/05/2023 Abstract [facility] [address] [place], [place] [phone] Yolanda Aaron MD [address] [place] [address] Social History Tobacco Use Types Packs/Day Years [...] Description 09/29/2025 11:15 AM EST Office Visit [facility] [address] [place] [address] Yolanda Aaron MD [address] [place] [address] documented as of this encounter Visit Diagnoses Not on filedocumented in this encounter Additional Health Concerns Assessment Noted Time PHQ-9 Depression Total Score: 023 3:33 PM EDT documented as of this encounter Care Teams School Cafeteria Head Cook Relationship Specialty Start Date End Date Yolanda Aaron MD [address] [place] [address] PCP - General Family Medicine 08/16/18 Cris Cabrera RN [address] [place] [address] Curator Of Photography And PrintsVenetian Blind Cleaner And Repairer 04/25/24 08/03/24 Teressa Winn Curator Of Photography And PrintsVenetian Blind Cleaner And Repairer 07/19/25 documented as of this encounter
--- OUTSIDE RECORDS SUMMARY | 2025-08-15 14:26 | XMS_ITS | Encounter Summary ---
Author Organization [employer] Address [address] [facility] 7t [place] [address] Care Team Providers Care Cyber Threat Analyst Name Role Phone Yolanda Aaron MD Primary Care Provider + Cris Cabrera RN Unavailable [phone] Encounter Details Date Type Department Care Team (Late st Contact Info) Description 12/24/2022 Orders Only [facility] [address] [place], [place] [phone] Yolanda Aaron MD [address] [place], [place] [phone] Social History Tobacco Use Types Packs/Day Years [...] Description 09/29/2025 11:15 AM EST Office Visit [facility] [address] [place] [address] Yolanda Aaron MD [address] [place] [address] documented as of this encounter Visit Diagnoses Not on filedocumented in this encounter Additional Health Concerns Assessment Noted Time PHQ-9 Depression Total Score: 11 023 11:41 AM EST documented as of this encounter Care Teams Cyber Threat Analyst Relationship Specialty Start Date End Date Yolanda Aaron MD [address] [place] [address] PCP - General Family Medicine 08/16/18 Cris Cabrera RN [address] [place] [address] School SupervisorSupervisor Multifocal Lens 04/25/24 08/03/24 Teressa Winn School SupervisorSupervisor Multifocal Lens 07/19/25 documented as of this encounter
--- OUTSIDE RECORDS SUMMARY | 2025-08-15 14:26 | XMS_ITS | Encounter Summary ---
Author Organization [employer] Address [address] [facility] 7t [place] [address] Care Team Providers Care Ferruler Name Role Phone Yolanda Aaron MD Primary Care Provider + Cris Cabrera RN Unavailable [phone] Encounter Details Date Type Department Care Team (Late Contact Info) Description 04/20/[address] [facility] [address] [place] [phone] Yolanda Aaron MD [address] [place] [address] [phone] Social History Tobacco Use Types Packs/Day Years [...] 09/29/2025 11:15 AM EST Office Visit [facility] [address] [place] [address] Yolanda Aaron MD [address] [place] [address] documented as of this encounter Visit Diagnoses Not on filedocumented in this encounter Additional Health Concerns Assessment Noted Time PHQ-9 Depression Total Score: 13 023 2:39 PM EDT documented as of this encounter Care Teams Ferruler Relationship Specialty Start Date End Date Yolanda Aaron MD [address] [place] [address] PCP - General Family Medicine 08/16/18 Cris Cabrera RN [address] [place] [address] Farmer Cash GrainYouth Teacher 04/25/24 08/03/24 Teressa Winn Farmer Cash GrainYouth Teacher 07/19/25 documented as of this encounter
== END 2025-08-15 11:58 | disposition home or self-care (01) ==
LOC: HO.HWS 11:21
PROVIDERS: PCP Internal Medicine; Visit Provider Advanced Practice Midwife
DX: N73.9 Female pelvic inflammatory disease, unspecified (principal)
CPT/HCPCS: 99213

== ENCOUNTER → 2025-08-15 11:20 | Outpatient (BNVA) | payer MEDICAID, SELFPAY | PROVIDERS: PCP Internal Medicine; Visit Provider Advanced Practice Midwife | DX: Z71.2 Person consulting for explanation of examination or test findings (principal); N73.9 Female pelvic inflammatory disease, unspecified | CPT/HCPCS: 99212 ==

== ENCOUNTER 2025-08-25 12:23 | Outpatient (REF) | payer MEDICAID, SELFPAY ==
[2025-08-25 13:09] LABS: Alanine Aminotransferase 72 U/L (0-31); Albumin Level 4.2 g/dL (3.5-5.0); Alkaline Phosphatase 83 U/L (39-117); Aspartate Amino Transferase 49 U/L (5-31); Total Protein 7.5 g/dL (6.5-8.0)
--- OUTSIDE RECORDS SUMMARY | 2025-08-25 13:44 | XMS_ITS | Encounter Summary ---
Author Organization [employer] Address 75 [facility] 7t [place] [address] Care Team Providers Care Fresh Foods Technician Name Role Phone Yolanda Aaron MD Primary Care Provider + Cris Cabrera RN Unavailable [phone] Encounter Details Date Type Department Care Team (Late st Contact Info) Description 12/24/2022 Orders Only [facility] [address] [place], [place] [phone] Yolanda Aaron MD [address] [place], [place] [phone] Social History Tobacco Use Types Packs/Day Years [...] 11:15 AM EST Office Visit [facility] [address] [place] [address] Yolanda Aaron MD [address] [place] [address] documented as of this encounter Visit Diagnoses Not on filedocumented in this encounter Additional Health Concerns Assessment Noted Time PHQ-9 Depression Total Score: 11 023 11:41 AM EST documented as of this encounter Care Teams Fresh Foods Technician Relationship Specialty Start Date End Date Yolanda Aaron MD [address] [place] [phone] PCP - General Family Medicine 08/16/18 Cris Cabrera RN [address] [place] [address] Window Shade Ring CovererSocial Security Specialist 04/25/24 08/03/24 Teressa Winn Window Shade Ring CovererSocial Security Specialist 07/19/25 documented as of this encounter
--- OUTSIDE RECORDS SUMMARY | 2025-08-25 13:44 | XMS_ITS | Encounter Summary ---
Author Organization [employer] Address 75 [facility] 7t [place] [address] Care Team Providers Care Boiler Erector Name Role Phone Yolanda Aaron MD Primary Care Provider + Cris Cabrera RN Unavailable [phone] Encounter Details Date Type Department Care Team (Late st Contact Info) Description 12/01/2022 Abstract [facility] 230 [place], [place] [phone] Yolanda Aaron MD 230 [place], [place] [phone] Social History Tobacco Use Types Packs/Day Years [...] 09/29/2025 11:15 AM EST Office Visit [facility] [address] [place] [address] Yolanda Aaron MD [address] [place] [address] documented as of this encounter Visit Diagnoses Not on filedocumented in this encounter Additional Health Concerns Assessment Noted Time PHQ-9 Depression Total Score: 11 023 11:41 AM EST documented as of this encounter Care Teams Boiler Erector Relationship Specialty Start Date End Date Yolanda Aaron MD [address] [place] [address] PCP - General Family Medicine 08/16/18 Cris Cabrera RN [address] [place] [address] Reading CoachProperty Worker 04/25/24 08/03/24 Teressa Winn Reading CoachProperty Worker 07/19/25 documented as of this encounter
--- OUTSIDE RECORDS SUMMARY | 2025-08-25 13:44 | XMS_ITS | Encounter Summary ---
Author Organization [employer] Address [address] [facility] [address] 7t [place] [address] Care Team Providers Care Exhibits Curator Name Role Phone Yolanda Aaron MD Primary Care Provider + Encounter Details Date Type Department Care Team (Latest Contact Info) Description 08/10/2025 Results Follow-Up [facility] [address] [place] [address] Yolanda Aaron MD [address] [place] [address] [place] Pelvis Transvaginal Social History Tobacco Use [...] EDT Pelvic ultrasound on 08/09/2025 ordered by post office manager showed bilateral ovarian cyst, patient is to follow-up with post office manager. documented in this encounter Plan of Treatment Upcoming Encounters Date Type Department Care Team (Late st Contact Info) Description 09/29/2025 11:15 AM EST Office Visit [facility] [address] [place] [address] Yolanda Aaron MD [address] [place] [address] documented as of this encounter Visit Diagnoses Not on filedocumented in this encounter Additional Health Concerns Assessment Noted Time PHQ-9 Depression Total Score: 22 025 11:10 AM EDT documented as of this encounter Care Teams Exhibits Curator Relationship Specialty Start Date End Date Yolanda Aaron MD [address] [place] [address] PCP - General Family Medicine 08/16/18 Teressa Winn Tail Board ManWorkers' Compensation Mediator 07/19/25 documented as of this encounter
--- OUTSIDE RECORDS SUMMARY | 2025-08-25 13:44 | XMS_ITS | Encounter Summary ---
Author Organization [employer] Address [address] [facility] [address] 7t [place] [address] Care Team Providers Care Storage Architect Name Role Phone Yolanda Aaron MD Primary Care Provider + Cris Cabrera RN Unavailable [phone] Encounter Details Date Type Department Care Team (Late st Contact Info) Description 08/05/2023 Abstract [facility] [address] [place], [place] [phone] Yolanda Aaron MD [address] [place] [address] Social History Tobacco Use Types Packs/Day Years [...] Description 09/29/2025 11:15 AM EST Office Visit [facility] [address] [place] [address] Yolanda Aaron MD [address] [place] [address] documented as of this encounter Visit Diagnoses Not on filedocumented in this encounter Additional Health Concerns Assessment Noted Time PHQ-9 Depression Total Score: 023 3:33 PM EDT documented as of this encounter Care Teams Storage Architect Relationship Specialty Start Date End Date Yolanda Aaron MD [address] [place] [address] PCP - General Family Medicine 08/16/18 Cris Cabrera RN [address] [place] [address] Gas CutterContract Associate Manager 04/25/24 08/03/24 Teressa Winn Gas CutterContract Associate Manager 07/19/25 documented as of this encounter
--- OUTSIDE RECORDS SUMMARY | 2025-08-25 13:44 | XMS_ITS | Encounter Summary ---
Author Organization [employer] Address [address] [facility] [address] 7t [place] [address] Care Team Providers Care Flight Operation Coordinator Name Role Phone Yolanda Aaron MD Primary Care Provider + Encounter Details Date Type Department Care Team (Late st Contact Info) Description 08/25/2025 Orders Only GENERIC EXTERNAL DATA DEPARTMENT Provider, [...] Description 09/29/2025 11:15 AM EST Office Visit [facility] [address] [place] [address] Yolanda Aaron MD [address] [place] [address] documented as of this encounter Procedures Procedure Name Priority Date/Time Associated Diagnosis Comments HEPATIC FUNCTION PANEL Routine 08/25/2025 12:27 PM EDT documented in this encounter Results * (ABNORMAL) Hepatic Function Panel (08/25/2025 12:27 PM EDT) Bilirubin, Total 0.4 0.0 - 1.0 mg/dL [facility] Bilirubin, Direct 0.2 0.0 - 0.5 mg/dL [facility] Aspartate Amino Transferase 49(H) 5 - 31 U/L [facility] Alanine Aminotransferase 72(H) 0 - 31 U/L [facility] Total Protein 7.5 6.5 - 8.0 g/dL [facility] Albumin Level 4.2 3.5 - 5.0 g/dL [facility] Alkaline Phosphatase 83 39 - 117 U/L [facility] 08/25/2025 12:2 7 PM EDT 08/25/2025 12:32 PM EDT us Generic External Data Provider LAB BLOOD ORDERAB LES Final Result [facility] [address] [place] [address] [phone] documented in this encounter Visit Diagnoses Not on filedocumented in this encounter Additional Health Concerns Assessment Noted Time PHQ-9 Depression Total Score: 22 025 11:10 AM EDT documented as of this encounter Care Teams Flight Operation Coordinator Relationship Specialty Start Date End Date Yolanda Aaron MD [address] [place] [address] PCP - General Family Medicine 08/16/18 Teressa Winn Outside Sales ManagerRailroad Car Repairman 07/19/25 documented as of this encounter
--- OUTSIDE RECORDS SUMMARY | 2025-08-25 13:44 | XMS_ITS | Clinical Summary ---
Author Organization [employer] Address [address] [place] [address] Care Team Providers Care Line Up Examiner Name Role Phone Jairo Bingham MD Primary Care Provider + Allergies No known active allergies Medications * This document contains information received from the source organization and may not represent a complete record from that organization. Calcium Carb-Cholecalci ferol 500-10 MG-MCG tablet Take 1 tablet by mouth in the morning and at bedtime. 2 Active ergocalciferol (Vitamin D2) 1.25 MG (70811 UT) capsule TAKE 1 CAPSULE BY MOUTH [...] steroid injection. Bipolar I disorder with depression ([facility]) 02/202411/30/2023 Elevated liver enzymes 11/30/2023 Panic attack [...] to AUD program. 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 F yearly with hematology Re consutl [...] is able to initiate care with her [facility] agency prescriber, she will go ahead and do that instead. She should call [facility] and/or consult her PCP with [...] fu with mental health provider and head track coach Counseled to cut down etoh use [...] Plan (12/03/2022 11:27 AM EST): FU by MECHANICAL STRIPER. Pat for PAP and pelvic US Coming [...] organization. Date Type Department Care Team Description 08/25/2025 Orders Only GENERIC EXTERNAL DATA DEPARTMENT Provider, Generic External Data 08/10/2025 Results Follow-Up [facility] MEDICINE [address] [place] [address] Jairo Bingham MD US Pelvis Transvaginal 07/19/2025 Telephone [facility] CHC MED & PEDS [address] [place] [address] Jairo Bingham MD Care Coordination (ICP Care Plan) 07/18/2025 Orders Only GENERIC EXTERNAL DATA DEPARTMENT Provider, Generic External Data 07/14/2025 3:00 PM EDT Office Visit [facility] MEDICINE [address] [place] [address] Karen, Kaci, NETWORK STRATEGIST Thiamine deficiency neuropathy (Primary Dx) 07/14/2025 Travel 07/11/2025 Telephone [facility] MEDICINE [address] [place] [address] Kriss Montes RN appt. reschedule 06/29/2025 Orders Only GENERIC EXTERNAL DATA DEPARTMENT Provider, Generic External Data 06/12/2025 Orders Only GENERIC EXTERNAL DATA DEPARTMENT Provider, Generic External Data 05/25/2025 Results Follow-Up [facility] MEDICINE [address] [place] [phone] Jairo Bingham MD US Abdomen Comp w [...] [facility] MEDICINE [address] [place], [place] [phone] Jairo Bingham MD [address] [place], [place] [phone] Health Maintenance Due Date Last Done Comments [...] Cervical Cancer Screening 02/12/2027 HPV/Cotest 02/12/2027 02/12/2022, 042 , 10/05/2020, Additional history exists Pap Smear [...] Associated Diagnosis Comments HEPATIC FUNCTION PANEL Routine 12:27 PM EDT MR ABDOMEN W AND WO CONTRAST Routine [...] Relevant to Health Maintenance Results * (ABNORMAL) Hepatic Function Panel (08/25/2025 12:27 PM EDT) Bilirubin, Total 0.4 0.0 - 1.0 mg/dL [facility] Bilirubin, Direct 0.2 0.0 - 0.5 mg/dL [facility] Aspartate Amino Transferase 49(H) 5 - 31 U/L [facility] Alanine Aminotransferase 72(H) 0 - 31 U/L [facility] Total Protein 7.5 6.5 - 8.0 g/dL [facility] Albumin Level 4.2 3.5 - 5.0 g/dL [facility] Alkaline Phosphatase 83 39 - 117 U/L [facility] 08/25/2025 12:2 7 PM EDT 08/25/2025 12:32 PM EDT us Generic External Data Provider LAB BLOOD ORDERAB LES Final Result Performing Organization Address City/State/[facility] de Phone Number [facility] [address] [place] [address] [phone] * MR Abdomen w/ and w/o Contrast (08/11/2025 2:29 PM EDT) Anatomical Region Laterality Modality Abdomen Magnetic Resonan ce 08/11/2025 2:29 PM EDT Narrative 08/11/2025 2:30 PM EDT [place] [address] Magnetic Resonance Report Signed Patient: Nisha Brown MR# : [id number] : 1985 Acct:[id number] Age/Sex: 40 / F ADM Date: 08/10/25 Loc: HO.MRI Attending Dr: Digna Torres MD Ordering Physician: Digna Torres MD Date of Service: 08/10/25 Procedure(s): MR abdomen wo/w con Accession Number(s): [id number] cc: Jairo Bingham MD; Digna Torres MD [...] Rodriguez MD in OV> 08/11/25 1430 DD/ 142 TD/TT: 08/11/251428 Records Officer: Procedure Note Donotuseinterpreter, Image - 08/11/2025 [place] [address] Magnetic Resonance Report Signed Patient: Kiki Brown# : [id number] : 1985Acct:[id number] Age/Sex: 40 / FADM Date: 08/10/25 Loc: HO.MRI Attending Dr: Digna Torres MD Ordering Physician: Digna Torres MD Date of Service: 08/10/25 Procedure(s): MR abdomen wo/w con Accession Number(s): [id number] cc: Jairo Bingham MD; Digna Torres MD [...] 08/11/25 1430 DD/ 1429 TD/TT: 08/11/25 1429 Records Officer: us [facility] External Provider IMG MRI PROCEDURES Final Result * US Pelvis Transvaginal (08/09/2025 3:00 PM EDT) Anatomical Region Laterality Modality Pelvis Ultrasound 08/09/2025 3:00 PM EDT Narrative 08/09/2025 3:35 PM EDT [address] [address] Ultrasound Report Signed Patient: Nisha Brown MR# : [id number] : 1985 Acct:[id number] Age/Sex: 40 / F ADM Date: 08/09/25 Loc: HO.US Attending Dr: Harmony Sheldon CNM Ordering Physician: Harmony Sheldon CNM Date of Service: 08/09/25 Procedure(s): US pelvic and transvaginal Accession Number(s): [id number] cc: Jairo Bingham MD; Harmony Sheldon CNM [...] 08/09/25 1532 DD/ 1500 TD/TT: 08/09/25 1513 Records Officer: Procedure Note Donotuseinterpreter, Image - 08/09/[address] [address] Ultrasound Report Signed Patient: Kiki Brown# : [id number] : 1985Acct:[id number] Age/Sex: 40 / FADM Date: 08/09/25 Loc: HO.US Attending Dr: Harmony Sheldon CNM Ordering Physician: Harmony Sheldon CNM Date of Service: 08/09/25 Procedure(s): US pelvic and transvaginal Accession Number(s): [id number] cc: Jairo Bingham MD; Harmony Sheldon CNM [...] 08/09/25 1532 DD/ 1500 TD/TT: 08/09/25 1513 Records Officer: us [facility] External Provider IMG US PROCEDURES Final Result * (ABNORMAL) Lipid Panel with Reflex to Direct LDL (07/18/2025 8:26 AM EDT) Triglycerides 90 <150 mg/dL [facility] Comment:Desirable Triglyceri de: less than 150 mg/dLBorderline High Triglyceride 150-199 mg/dLHigh Triglyceride: 200-499 mg/dLVery High Triglyceride: greater than or equal to 5OO mg/dL Cholesterol 136 <200 mg/dL [facility] Comment:Desirable Cholestero l: less than 200 mg/dLBorderline High Cholesterol: 200-239 mg/dLHigh Cholesterol: greater than 239 mg/dL LDL Cholesterol Calculated 83 <100 mg/dL [facility] Comment:Desirable LDL: less than 100 mg/dLNear Optimal/Above Optimal LDL: 110- 129 mg/dLBorderline High LDL: 130-159 mg/dLHigh LDL: 160-189 mg/dLVery High LDL: greater than or equal to 190 mg/dL HDL Cholesterol 35(L) >40 mg/dL [facility] Comment:Desirable HDL: great er than 40 mg/dL Note: This HDL assay may give artificially low results in patients with liver disease. 07/18/2025 8:26 AM EDT 07/18/2025 8:26 AM EDT us Generic External Data Provider LAB BLOOD ORDERAB LES Final Result [facility] [address] [place] [phone] * (ABNORMAL) Comprehensive Metabolic Panel, Fasting (06/29/2025 10:55 AM EDT) Sodium 143 135 - 145 mmol/L [facility] Potassium 4.1 3.3 - 5.1 mmol/L [facility] Chloride 109(H) 96 - 108 mmol/L [facility] Carbon Dioxide 25 22 - 29 mmol/L [facility] Anion Gap 13 12 - 20 [facility] Urea Nitrogen (BUN) 10 9 - 16 mg/dL [facility] Creatinine, Serum 0.73 0.5 - 1.4 mg/dL [facility] Estimated Glomerular Filt Rate >60 [facility] Comment:Chronic Kidney Disea se: Estimated GFR < 60 mL/min/1.94q7Ueuasz Kidney Disease: Estimated GFR < 15 mL/min/1.73m2 Glucose Fasting 79 60 - 99 mg/dL [facility] Calcium 8.9 8.4 - 10.2 mg/dL [facility] Bilirubin, Total 0.5 0.0 - 1.0 mg/dL [facility] Aspartate Amino Transferase 65(H) 5 - 31 U/L [facility] Alanine Aminotransferase 84(H) 0 - 31 U/L [facility] Total Protein 7.3 6.5 - 8.0 g/dL [facility] Albumin Level 4.1 3.5 - 5.0 g/dL [facility] Alkaline Phosphatase 77 39 - 117 U/L [facility] 06/29/2025 10:5 5 AM EDT 06/29/2025 10:55 AM EDT us Generic External Data Provider LAB BLOOD ORDERAB LES Final Result [facility] [address] [place] [phone] * Vitamin B12 (Cobalamin) and Folate Panel, Serum (06/29/2025 10:55 AM EDT) Vitamin B12 473 200 - 900 pg/mL [facility] Comment:NORMAL 200-900 PG/M L INDETERMINATE 160-199 PG/ML DEFICIENT < 160 PG/ML Folate 9.3 > or = 4.0 ng/mL [facility] Comment:Reference Values:> o r = 4.0 ng/mL< 4.0 ng/mL suggests folate deficiency Methotrexate, aminopterin and folinic acid(leucovorin) are chemotherapeutic agents whose molecularstructures are similar to folate; therefore, the Architectfolate assay cannot be used for patients using these drugs. 06/29/2025 10:5 5 AM EDT 06/29/2025 10:55 AM EDT Generic External Data Provider LAB BLOOD ORDERAB LES Final Result Performing Organization Address [facility] Co de Phone Number [facility] [address] [place] [phone] * TSH with Reflex to Free T4 (06/29/2025 10:55 AM EDT) TSH reflex Free T4 1.34 0.32 - 4.0 uIU/mL [facility] 06/29/2025 10:5 5 AM EDT 06/29/2025 10:55 AM EDT Generic External Data Provider LAB BLOOD ORDERAB LES Final Result Performing Organization Address [facility] Phone Number [facility] [address] [place] [phone] * Lyme Disease Ab with Reflex to Blot (IgG, IgM) (06/29/2025 10:55 AM EDT) Lyme Antibody Screen <0.90 index [facility] Comment:Index Interpretation ----- < 0.90 Negative [...] when erythemamigrans is apparent.THIS TEST WAS PERFORMED AT:[employer] [place] [id number] MCELROY MD Lyme Blot TNP [facility] 06/29/2025 10:5 5 AM EDT 06/29/2025 10:55 AM EDT us Generic External Data Provider LAB BLOOD ORDERAB LES Final Result [facility] [address] [place] [phone] * CBC auto differential (06/29/2025 10:55 AM EDT) White Blood Count 7.7 4.8 - 10.8 X10*3/uL [facility] Red Blood Count 4.60 4.20 - 5.50 X10*6/uL [facility] Hemoglobin 13.9 12.0 - 16.0 g/dl [facility] Hematocrit 41.4 37.0 - 47.0 % [facility] Mean Corpuscular Volume 90.0 80.0 - 98.0 fL [facility] Mean Corpuscular Hemoglobin 30.2 27.0 - 33.0 pg [facility] Mean Corpuscular HGB Conc 33.6 31.0 - 35.0 g/dl [facility] Red Cell Distribution Width 12.4 11.0 - 16.0 % [facility] Platelet Count 298 160 - 400 X10*3/uL [facility] Mean Platelet Volume 10.3 9.4 - 12.3 fL [facility] Neutrophils Percent Auto 67.2 45 - 73 % [facility] Imm Gran Pct Auto 0.3 0.0 - 0.4 % [facility] Lymphocytes Percent Auto 24.9 20 - 40 % [facility] Monocytes Percent Auto 6.6 2 - 11 % [facility] Eosinophils Percent Auto 0.5 0 - 4 % [facility] Basophils Percent Auto 0.5 0 - 2 % [facility] NRBC Pct Auto 0.0 0.0 - 0.2 /100WBC [facility] Neutrophils Absolute Auto 5.2 2.0 - 8.3 x10*3/uL [facility] Imm Gran Abs Auto 0.02 0.00 - 0.03 X10*3/uL [facility] Lymphocytes Absolute Auto 1.9 1.2 - 4.9 X10*3/uL [facility] Monocytes Absolute Auto 0.5 0.1 - 1.2 X10*3/uL [facility] Eosinophils Absolute Auto 0.0 0.0 - 0.4 X10*3/uL [facility] Basophils Absolute Auto 0.0 0.0 - 0.2 X10*3/uL [facility] NRBC Abs Auto 0.000 0.0 - 0.012 X10*3/uL [facility] 06/29/2025 10:5 5 AM EDT 06/29/2025 10:55 AM EDT us Generic External Data Provider LAB BLOOD ORDERAB LES Final Result [facility] [address] [place] [phone] * Methylmalonic Acid (06/29/2025 10:55 AM EDT) Methylmalonic Acid 141 55 - 335 nmol/L [facility] Comment: Serum methylmalonic acid (MMA) levels [...] outcomes,such as neural tube defects and intrauterine growthrestriction[email or web address] utilized Multi-Modal Decomposition(MMD) analysis to establish first and second trimester-specific MMA reference intervals in , as givenbelow:MMA, First trimester (<13 wks gestation): 58-167 nmol/LMMA, Second trimester (13-23 wks gestation):63-241 nmol/LThis test was developed and its analytical performancecharacteristics have been determined by [employer]. It has not been cleared or approved by theA. This assay has been validated pursuant to the CLIAregulations and is used for clinical purposes.THIS TEST WAS PERFORMED AT:[employer] [id number] [place] [id number] WARREN MD,PHD 06/29/2025 10:5 5 AM EDT 06/29/2025 10:55 AM EDT Generic External Data Provider LAB BLOOD ORDERAB LES Final Result Performing Organization Address [facility]/ZIP Co de Phone Number [facility] [address] [place] [phone] * (ABNORMAL) Iron And Total Iron Binding Capacity (06/29/2025 10:55 AM EDT) Pathologist [facility] Iron 90 30 - 160 mcg/dL [facility] Total Iron Binding Capacity 215(L) 228 - 428 mcg/dL [facility] Percent Iron Saturation 42 15 - 50 % [facility] Unsaturated Iron Binding 125 ug/dL [facility] 06/29/2025 10:5 5 AM EDT 06/29/2025 10:55 AM EDT Generic External Data Provider LAB BLOOD ORDERAB LES Final Result Performing Organization Address [facility] Co de Phone Number [facility] [address] [place] [phone] * Sed Rate by Oz Peres (06/29/2025 10:55 AM EDT) Erythrocyte Sedimentation Rate 18 0 - 20 MM/HR [facility] Comment:Patients with polycy themia and many hemoglobin abnormalitiesmay have depressed sed rates whereas patients with anemiamay have elevated sed rates. 06/29/2025 10:5 5 AM EDT 06/29/2025 10:55 AM EDT Generic External Data Provider LAB BLOOD ORDERAB LES Final Result Performing Organization Address [facility]/ZIP Co de Phone Number [facility] [address] [place] [phone] * (ABNORMAL) C-reactive Protein (06/29/2025 10:55 AM EDT) C Reactive Protein 1.98(H) < or = 0.50 mg/dL [facility] 06/29/2025 10:5 5 AM EDT 06/29/2025 10:55 AM EDT Generic External Data Provider LAB BLOOD ORDERAB LES Final Result Performing Organization Address [facility] Co de Phone Number [facility] [address] [place] [phone] * (ABNORMAL) Vitamin B1 (06/29/2025 10:55 AM EDT) Vitamin B1 <6(A) 8 - 30 nmol/L [facility] Comment:Vitamin supplementat ion within 24 hours prior toblood draw may affect the accuracy of the results.This test was developed and its analytical performancecharacteristics have been determined by [employer] [place], [place]. It hasnot been cleared or approved by the U.S. Food and DrugAdministration. This assay has been validated pursuantto the CLIA regulations and is used for clinicalpurposes.THIS TEST WAS PERFORMED AT:[employer] [place] [address]CZUZYLHGINETTE WARREN MD,PHD 06/29/2025 10:5 5 AM EDT 06/29/2025 10:55 AM EDT us Generic External Data Provider LAB BLOOD ORDERAB LES Final Result Performing Organization Address [facility] Co de Phone Number [facility] [address] [place] [phone] * Vitamin B6, Plasma (06/29/2025 10:55 AM EDT) Vitamin B6 5.3 2.1 - 21.7 ng/mL [facility] Comment:Vitamin supplementat ion within 24 hours prior toblood draw may affect the accuracy of the results.This test was developed and its analytical performancecharacteristics have been determined by [employer] [place], [place]. It hasnot been cleared or approved by the U.S. Food and DrugAdministration. This assay has been validated pursuantto the CLIA regulations and is used for clinicalpurposes.THIS TEST WAS PERFORMED AT:[employer] [place] [address]XRLRMXAGINETTE WARREN MD,PHD 06/29/2025 10:5 5 AM EDT 06/29/2025 10:55 AM EDT us Generic External Data Provider LAB BLOOD ORDERAB LES Final Result Performing Organization Address [facility] de Phone Number [facility] [address] [place] [phone] * Magnesium (06/29/2025 10:55 AM EDT) Magnesium 2.2 1.6 - 2.6 mg/dL [facility] 06/29/2025 10:5 5 AM EDT 06/29/2025 10:55 AM EDT us Generic External Data Provider LAB BLOOD ORDERAB LES Final Result Performing Organization Address [facility] Co de Phone Number [facility] [address] [place] [phone] * Homocysteine (06/29/2025 10:55 AM EDT) Homocysteine 6.8 < or = 11.0 umol/L [facility] Comment:Homocysteine is incr eased by functional deficiency offolate or vitamin B12. Testing for methylmalonic aciddifferentiates between these deficiencies. Other causesof increased homocysteine include renal failure, folateantagonists such as methotrexate and phenytoin, andexposure to nitrous oxide.Kendrick Downing, et al., [employer] Med. 1999;131(5):331-9.THIS TEST WAS PERFORMED AT:[employer] [place] [id number] MCELROY MD 06/29/2025 10:5 5 AM EDT 06/29/2025 10:55 AM EDT [employer] External Data Provider LAB BLOOD ORDERAB LES Final Result [facility] [address] [place] [phone] * Hemoglobin A1c (06/29/2025 10:55 AM EDT) Hemoglobin A1c 5.4 <6.0 % [facility] Comment:Hemoglobin A1C Refer ence Range Adults: 4.8 - 6.0 % Non diabetic: < 6.0 % Goal: < 7.0 %Additional Action Suggested: > 8.0 %Note: Hemoglobin A1c results are invalid for patients with abnormal amounts of HbF. Blood transfusions may impact the HbA1c concentration in the patient sample. Estimated Average Glucose 108 mg/dL [facility] Comment:eAG = Estimated ave rage glucose which is %A1C expressed asaverage glucose, using the formula of the A3I-JnduigsXneeruz Glucose study (ADAG), Diabetes Care, Vol.31,#8,May. 2007 06/29/2025 10:5 5 AM EDT 06/29/2025 10:55 AM EDT us Generic External Data Provider LAB BLOOD ORDERAB LES Final Result Performing Organization Address City/[facility]/ZIP Co de Phone Number [facility] [address] [place] [phone] * (ABNORMAL) Ferritin (06/29/2025 10:55 AM EDT) Pathologist [facility] Ferritin 500(H) 10 - 250 ng/mL [facility] 06/29/2025 10:5 5 AM EDT 06/29/2025 10:55 AM EDT Generic External Data Provider LAB BLOOD ORDERAB LES Final Result Performing Organization Address [facility] de Phone Number [facility] [address] [place] [phone] * (ABNORMAL) Prothrombin Time-INR (06/12/2025 11:13 AM EDT) [facility] Prothrombin Time 12.5(H) 10.9 - 12.4 SEC [facility] INTERNATIONAL NORM RATIO 1.1 0.9 - 1.1 [facility] Comment:INTERNATIONAL NORMAL IZED RATIO (INR) REFERENCE [...] ORDERAB LES Final Result Performing Organization Address [facility] Co de Phone Number [facility] [address] [place] [phone] * CBC (06/12/2025 11:13 AM EDT) White Blood Count 7.0 4.8 - 10.8 X10*3/uL [facility] Red Blood Count 4.69 4.20 - 5.50 X10*6/uL [facility] Hemoglobin 13.9 12.0 - 16.0 g/dl [facility] Hematocrit 42.9 37.0 - 47.0 % [facility] Mean Corpuscular Volume 91.5 80.0 - 98.0 fL [facility] Mean Corpuscular Hemoglobin 29.6 27.0 - 33.0 pg [facility] Mean Corpuscular HGB Conc 32.4 31.0 - 35.0 g/dl [facility] Red Cell Distribution Width 12.5 11.0 - 16.0 % [facility] Platelet Count 290 160 - 400 X10*3/uL [facility] Mean Platelet Volume 10.3 9.4 - 12.3 fL [facility] NRBC Pct Auto 0.0 0.0 - 0.2 /100WBC [facility] NRBC Abs Auto 0.000 0.0 - 0.012 X10*3/uL [facility] 06/12/2025 11:1 3 AM EDT 06/12/2025 11:49 AM EDT us Generic External Data Provider LAB BLOOD ORDERAB LES Final Result [facility] [address] [place] [phone] * (ABNORMAL) Comprehensive Metabolic Panel (06/12/2025 12:00 AM EDT) Sodium 143 135 - 145 mmol/L [facility] Potassium 4.0 3.3 - 5.1 mmol/L [facility] Chloride 109(H) 96 - 108 mmol/L [facility] Carbon Dioxide 26 22 - 29 mmol/L [facility] Anion Gap 12 12 - 20 [facility] Urea Nitrogen (BUN) 12 9 - 16 mg/dL [facility] Creatinine, Serum 0.79 0.5 - 1.4 mg/dL [facility] Estimated Glomerular Filt Rate >60 [facility] Comment:Chronic Kidney Disea se: Estimated GFR < 60 mL/min/1.82a4Xevcdz Kidney Disease: Estimated GFR < 15 mL/min/1.73m2 Glucose 85 60 - 115 mg/dL [facility] Calcium 9.1 8.4 - 10.2 mg/dL [facility] Bilirubin, Total 0.4 0.0 - 1.0 mg/dL [facility] Aspartate Amino Transferase 40(H) 5 - 31 U/L [facility] Alanine Aminotransferase 64(H) 0 - 31 U/L [facility] Total Protein 7.3 6.5 - 8.0 g/dL [facility] Albumin Level 4.2 3.5 - 5.0 g/dL [facility] Alkaline Phosphatase 76 39 - 117 U/L [facility] 06/12/2025 06/12/2025 us Generic External Data Provider LAB BLOOD ORDERAB LES Final Result [facility] [address] [place] [address] [phone] * Hepatitis Panel, General (03/30/2025 9:16 AM EDT) Hepatitis A IgM Nonreactive Nonreactive [facility] Comment:IgM antibodies to PFEIFFER V not detected; does not exclude earlyacute or recovered HAV infection. ~Hepatitis B Surface Antibody REACTIVE Nonreactive [facility] Comment:REACTIVE: > 11.99 mI U/mL Hepatitis B Core Antibody Nonreactive Nonreactive [facility] Hepatitis C Antibody Nonreactive Nonreactive [facility] Comment:Antibodies to HCV no t detected; does not exclude early acuteHCV infection. Hepatitis B Surface Ag Negative Negative [facility] Blood 03/30/2025 9:16 AM EDT 03/30/2025 11:37 AM EDT us Jairo Bingham MD LAB BLOOD ORDERABLES Fin al Result Performing Organization Address [facility]/ZIP Co de Phone Number [facility] [address] [place] [phone] * HIV-1/2 Antigen and Antibodies, Fourth Generation, with Reflexes (03/30/2025 9:16 AM EDT) HIV AB/AG Nonreactive Nonreactive [facility] Comment:HIV-1 p24 Ag and/or HIV-1/HIV-2 Ab not detected.A test result that is nonreactive does not exclude thepossibility of exposure to or infection with HIV-1 and/orHIV-2. Nonreactive results in this assay for individualswith prior exposure to HIV-1 and/or HIV-2 may be due toantigen and antibody levels that are below the limit ofdetection of this assay.The [employer] HIV Ag/Ab Combo assay result andsupplemental assay results should be interpreted inconjunction with the patient's clinical presentation,history and other laboratory results. If the results areinconsistent with clinical evidence, additional testing issuggested to confirm the result. Blood Venous blood specimen / Unknown 03/30/2025 9:16 AM EDT 03/30/2025 11:37 AM EDT Jairo Bingham MD LAB BLOOD ORDERABLES Manjit jayne Result - Final Performing Organization Address City/[facility]/ZIP Co de Phone Number [facility] [address] [place] [phone] * BI Mammogram Screening Tomosynthesis Bilateral (01/05/2025 2:00 PM EDT) Anatomical Region Laterality Modality Breast Bilateral Mammography 01/05/2025 2:00 PM EDT Narrative 01/14/2025 10:59 AM EDT [facility] [address] [place] [id number] Mammography Report Signed Patient: KevinNisha Cadena MR# : [id number] : 1985 Acct:[id number] Age/Sex: 39 / F ADM Date: 01/05/25 Loc: HO.MAMMO Attending Dr: Jairo Bingham MD Ordering Physician: Jairo Bingham MD Results: 2Be nign Findings Date of Service: 01/05/25 Follow Up: 1 Year From Orig inal Mammogram Procedure(s): MM tomosynthesis screening BI Accession Number(s): [id number] cc: Jairo Bingham MD EXAMINATION: MM SCREENING [...] 01/14/25 1057 DD/ 1400 TD/TT: 01/05/25 1415 Records Officer: Procedure Note Donotuseinterpreter, Image - 01/14/2025 [facility] [address] [place] [address] Dr. [place], [place] [address] Mammography Report Signed Patient: Chaparro BrownR# : [id number] : 1985Acct:[id number] Age/Sex: 39 / FADM Date: 01/05/25 Loc: HO.MAMMO Attending Dr: Jairo Bingham MD Ordering Physician: Jairo Bingham MDResults: 2Be nign Findings Date of Service: 01/05/25Follow Up: 1 Year From [facility] Mammogram Procedure(s): MM tomosynthesis screening BI Accession Number(s): [id number] cc: Jairo Bingham MD EXAMINATION: MM SCREENING [...] 01/14/25 1057 DD/ 1400 TD/TT: 01/05/25 1415 Records Officer: Jairo Bingham MD [facility] BI PROCEDURES Edited Result - Final * HPV E6/E7 RFLX XENIA 16 18/45 (02/12/2022 3:42 PM EDT) HPV mRNA E6/E7 rflx Not Detected Not Detected [facility] Comment: Methodology: Eap Specialist-Mediated Amplification This assay detects E6/E7 viral messenger RNA (mRNA) from 14 high-risk HPV types (16,18,31,33,35,39,45,51,52,56,58,59,66,68). The analytical performance characteristics of this assay have been determined by [employer]. The modifications have not been cleared or approved by the FDA. This assay has been validated pursuant to the CLIA regulations and is used for clinical purposes. For additional information, please refer to http://education.HeTexted/faq/IDB436f3 (This link if provided for information/ educational purposes only.) THIS TEST WAS PERFORMED AT: [employer] [address] [place] [address] [address],[place] [address] TREY MCELROY MD 02/12/2022 3:42 PM EDT [facility] HISTORICAL/NON ORDERABLE LABS Fi nal Result Performing Organization Address City/State/[facility] Co de Phone Number [facility] [address] * Hm Pap Smear (02/12/2022) Historical Provider HEALTH MAINTENANCE Final Result from Last 3 Months or Most Recently Relevant to Health Maintenance Insurance [facility] C3 Care Teams Line Up Examiner Relationship Specialty Start Date End Date Jairo Bingham MD [address] [place] [phone] PCP - General Family Medicine 08/16/18 Teressa Winn Associate Director Career ServicesCareer Technical Education Instructor 07/19/25
--- OUTSIDE RECORDS SUMMARY | 2025-08-25 13:44 | XMS_ITS | Encounter Summary ---
Author Organization [employer] Address [address] [facility] 7 [address] [place] [address] Care Team Providers Care Cloth Piecer Name Role Phone Yolanda Aaron MD Primary Care Provider + Cris Cabrera RN Unavailable [phone] Encounter Details Date Type Department Care Team (Late Contact Info) Description 07/20/2023 Orders Only [facility] MEDICINE [address] [place] [phone] Provider, MD Estelle Social History Tobacco Use [...] Description 09/29/2025 11:15 AM EST Office Visit [facility] MEDICINE [address] [place] [phone] Yolanda Aaron MD [address] [place] [address] documented as of this encounter Procedures Procedure [...] documented as of this encounter Care Teams Cloth Piecer Relationship Specialty Start Date End Date Yolanda Aaron MD [address] [place] [address] PCP - General Family Medicine 08/16/18 Cris Cabrera RN [address] [place] [phone] Web Services ProfessionalLime Burner 04/25/24 08/03/24 Teressa Winn Web Services ProfessionalLime Burner 07/19/25 documented as of this encounter
--- OUTSIDE RECORDS SUMMARY | 2025-08-25 13:44 | XMS_ITS | Encounter Summary ---
Author Organization [employer] Address [address] [facility] 7t [place] [address] Care Team Providers Care Manager Underwriting Name Role Phone Yolanda Aaron MD Primary Care Provider + Cris Cabrera RN Unavailable [phone] Encounter Details Date Type Department Care Team (Late Contact Info) Description 04/20/2023 Abstract [facility] MEDICINE [address] [place] [phone] Yolanda Aaron MD [address] [place] [address] [phone] Social History Tobacco Use Types Packs/Day Years [...] Description 09/29/2025 11:15 AM EST Office Visit [facility] MEDICINE [address] [place] [address] Yolanda Aaron MD [address] [place] [address] documented as of this encounter Visit Diagnoses Not on filedocumented in this encounter Additional Health Concerns Assessment Noted Time PHQ-9 Depression Total Score: 13 023 2:39 PM EDT documented as of this encounter Care Teams Manager Underwriting Relationship Specialty Start Date End Date Yolanda Aaron MD [address] [place] [address] PCP - General Family Medicine 08/16/18 Cris Cabrera RN [address] [place] [phone] Vegetable LoaderNut Packer 04/25/24 08/03/24 Teressa Winn Vegetable LoaderNut Packer 07/19/25 documented as of this encounter
[2025-09-01 14:48] LABS: Phosphatidylethanol 16:0-18:1 NEGATIVE; Phosphatidylethanol 16:0-18:2 NEGATIVE
== END 2025-08-25 12:24 | disposition home or self-care (01) ==
LOC: HO.LAB 12:23
PROVIDERS: PCP Internal Medicine; Visit Provider Internal Medicine
DX: R79.89 Other specified abnormal findings of blood chemistry (principal); Z78.9 Other specified health status
CPT/HCPCS: 36415; 80076; 80321

== ENCOUNTER → 2025-08-30 20:30 | Outpatient (REF) | payer MEDICAID, SELFPAY | LOC: HO.SL 20:30 | PROVIDERS: PCP Internal Medicine; Visit Provider Nurse Practitioner Family | DX: G47.33 Obstructive sleep apnea (adult) (pediatric) (principal); G47.34 Idiopathic sleep related nonobstructive alveolar hypoventilation | CPT/HCPCS: 95810 ==

== ENCOUNTER → 2025-08-30 22:30 | Outpatient (BNV) | payer MEDICAID, SELFPAY | PROVIDERS: PCP Internal Medicine; Visit Provider Psychiatry & Neurology Neurology | DX: G47.33 Obstructive sleep apnea (adult) (pediatric) (principal) | CPT/HCPCS: 95810 ==

== ENCOUNTER 2025-09-05 12:20 | Outpatient (REF) | payer MEDICAID, SELFPAY ==
--- NOTE | ~2025-09-05 | MM_ITS ---
EXAMINATION(S): 1. MM DIAGNOSTIC DIGITAL BREAST TOMOSYNTHESIS, BILATERAL 2. TARGETED ULTRASOUND OF THE RIGHT BREAST CLINICAL INFORMATION: -According to requisition: Right breast mastodynia at 1:00 2 o'clock position. -According to patient, the focal pain is located at the chronic known lump in the right breast. - Ultrasound-guided right breast biopsy on October 24, 2020 for solid mass at 1 o'clock position 6 cm from the nipple (butterfly shape Hydromark clip placement). Pathology results showed fibroadenoma. -Stereotactic needle core biopsy of left breast calcifications at 3 o'clock position (top hat shape clip placed) on October 14, 2020. Pathology showed benign breast tissue with fibrocystic changes and calcifications. -Ultrasound-guided needle core biopsy of the left breast on August 27, 2018 (Hydromark open coil shape clip). Pathology showed fragments of fibroadenoma. COMPARISON: Comparison made to multiple prior mammograms, most recent January 05, 2025, and most remote August 23, 2018. Prior right breast ultrasound on October 12, 2020. TECHNIQUE: Digital breast tomosynthesis is performed in both the mediolateral oblique and craniocaudal views along with computer-aided detection (CAD). Synthesized 2D images are generated from the tomosynthesis. A round skin BB marker was placed at the location of the focal pain over the chronic lump in the right breast. FINDINGS: BREAST COMPOSITION: The breasts are heterogeneously dense, which may obscure small masses. RIGHT BREAST: Tissue marker from previous needle core biopsies associated with biopsy-proven fibroadenoma. No significant masses, suspicious calcifications or other abnormalities are seen. In particular, no suspicious mammographic findings adjacent to the skin BB marker placed in the medial breast. Targeted ultrasound of the right breast was performed at the location of the focal pain. The survey shows a 2.8 x 1.6 x 2.8 cm hypoechoic solid mass at 1 o'clock position at 6 cm from the nipple. Prior measurements of 2.2 x 0.9 x 1.3 cm on October 12, 2020. Minimal peripheral vascularity demonstrated with color Doppler evaluation. LEFT BREAST: Two tissue markers from previous needle core biopsies. No significant masses, suspicious calcifications or other abnormalities are seen. MM/MM tomosynthesis diagnostic BI IMPRESSION: RIGHT BREAST: Focal pain appears to be associated with the biopsy-proven fibroadenoma at 1 o'clock position 6 cm from the nipple. This fibroadenoma has mildly increased in size from 2020, but remains with benign mammographic and sonographic features. Benign, no mammographic evidence of malignancy. However, given the focal pain and slow interval increase in size, recommend surgical consult. Otherwise, normal interval follow-up is recommended in 12 months. LEFT BREAST: Benign, no mammographic evidence of malignancy. Normal interval follow-up is recommended in 12 months. ASSESSMENT: BI-RADS: Category 2: Benign RECOMMENDATION: Surgical Consult Results were provided to the patient at time of visit by the technologist. Electronically signed by: Giovanny Lockhart MD 09/05/2025 03:28 PM RAUL ROSALES
--- OUTSIDE RECORDS SUMMARY | 2025-09-05 14:07 | XMS_ITS | Encounter Summary ---
Author Organization [employer] Address [address] [facility] 7t [place] [address] Care Team Providers Care Business Operations Consultant Name Role Phone Yolanda Aaron MD Primary Care Provider + Cris Cabrera RN Unavailable [phone] Encounter Details Date Type Department Care Team (Late Contact Info) Description 07/20/2023 Orders Only [facility] MEDICINE [address] [place] [phone] Provider, MD Estelle Social History Tobacco Use [...] Description 09/29/2025 11:15 AM EST Office Visit [facility] [address] [place] [phone] Yolanda Aaron MD [address] [place] [address] documented as of this encounter Procedures Procedure [...] documented as of this encounter Care Teams Business Operations Consultant Relationship Specialty Start Date End Date Yolanda Aaron MD [address] [place] [address] PCP - General Family Medicine 08/16/18 Cris Cabrera RN [address] [place] [phone] Office Technology ProfessorManager Floor 04/25/24 08/03/24 Teressa Winn Office Technology ProfessorManager Floor 07/19/25 documented as of this encounter
--- OUTSIDE RECORDS SUMMARY | 2025-09-05 14:07 | XMS_ITS | Encounter Summary ---
Author Organization [employer] Address [address] [facility] [address] [place] [address] Care Team Providers Care Learning And Development Director Name Role Phone Yolanda Aaron MD Primary Care Provider + Encounter Details Date Type Department Care Team (Latest Contact Info) Description 08/10/2025 Results Follow-Up [facility] MEDICINE [address] [place] [address] Yolanda Aaron MD [address] [place] [address] US Pelvis Transvaginal Social History Tobacco Use [...] EDT Pelvic ultrasound on 08/09/2025 ordered by felt hat pouncing operator hand showed bilateral ovarian cyst, patient is to follow-up with felt hat pouncing operator hand. documented in this encounter Plan of Treatment Upcoming Encounters Date Type Department Care Team (Late st Contact Info) Description 09/29/2025 11:15 AM EST Office Visit [facility] MEDICINE [address] [place] [address] Yolanda Aaron MD [address] [place] [address] documented as of this encounter Visit Diagnoses Not on filedocumented in this encounter Additional Health Concerns Assessment Noted Time PHQ-9 Depression Total Score: 22 025 11:10 AM EDT documented as of this encounter Care Teams Learning And Development Director Relationship Specialty Start Date End Date Yolanda Aaron MD [address] [place] [address] PCP - General Family Medicine 08/16/18 Teressa Winn Spa Manager/EstheticianTailer Off 07/19/25 documented as of this encounter
--- OUTSIDE RECORDS SUMMARY | 2025-09-05 14:07 | XMS_ITS | Clinical Summary ---
Author Organization [employer] Address [address] [place] [address] Care Team Providers Care Power Plant Mechanic Name Role Phone Jairo Bingham MD Primary Care Provider + Allergies No known active allergies Medications * This document contains information received from the source organization and may not represent a complete record from that organization. Calcium Carb-Cholecalci ferol 500-10 MG-MCG tablet Take 1 tablet by mouth in the morning and at bedtime. 2 Active ergocalciferol (Vitamin D2) 1.25 MG (40833 UT) capsule TAKE 1 CAPSULE BY MOUTH [...] steroid injection. Bipolar I disorder with depression (CMS/[facility]) 02/202411/30/2023 Elevated liver enzymes 11/30/2023 Panic attack [...] referred to AUD program. Fu closely with high school academic coach Hep B up to date Varicose [...] she can drop of att he front clerk and request a referral at [facility] [...] be referred to [facility] for [facility] and Recovery program. 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 F yearly with hematology Re [...] and do that instead. She should call [facility] and/or consult her PCP with any concerns. [...] close fu with mental health provider and high school academic coach Counseled to cut down etoh use [...] Plan (12/03/2022 11:27 AM EST): FU by POLICY AND PLANNING MANAGER. Pat for PAP and pelvic US [...] Provider, Generic External Data 08/10/2025 Results Follow-Up [facility] [address] [place] [address] Jairo Bingham MD US Pelvis Transvaginal 07/19/2025 Telephone [facility] PEDS [address] [place] [address] Jairo Bingham MD Care Coordination (ICP Care Plan) 07/18/2025 Orders Only GENERIC EXTERNAL DATA DEPARTMENT Provider, Generic External Data 07/14/2025 3:00 PM EDT Office Visit [facility] [address] [place] [address] Karen, Kaci, CONTACT MANAGER 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 reschedule 06/29/2025 Orders [...] Description 09/29/2025 11:15 AM EST Office Visit [facility] [address] [place] [address] Jairo Bingham MD [address] [place] [address] Health Maintenance Due Date Last Done Comments [...] Screening 04/04/2025 04/04/2024 COVID-19 Vaccine ( - 2024- season) 2025 07/28/2022, 07/28/2022 Influenza Vaccine (#1) [...] Procedure Name Priority Date/Time Associated Diagnosis Comments DRUG MONITORING, PHOSPHATIDYLETHANOL (PETH), BLOOD Routine 08/25/2025 12:27 PM EDT HEPATIC FUNCTION PANEL Routine 12:27 PM EDT [...] AM EDT CBC WITH AUTO DIFFERENTIAL Routine 06/29 10:55 AM EDT HEMOGLOBIN A1C Routine 06/29/2025 10:55 AM EDT PROTHROMBIN TIME-INR Routine 06/12/2025 11:13 AM EDT CBC Routine 06/12/2025 11:13 AM EDT COMPREHENSIVE METABOLIC PANEL Routine 06/12/2025 12:00 AM EDT HEPATITIS PANEL, GENERAL Routine 025 9:16 AM EDT Sexually transmitted disease counseling HIV 1/2 ANTIGEN/ANTIBODY, FOURTH GENERATION W/RFL Routine 03/30/2025 9:16 AM EDT Sexually transmitted disease counseling BI MAMMOGRAM SCREENING TOMOSYNTHESIS BILATERAL Routine 01/05/2025 2:00 PM EDT ZZZ HISTORICAL HPV E6/E7 RFLX XENIA 16 18/45 Routine 02/12/2022 3:42 PM EDT HM PAP/HPV Routine 02/12/2022 from Last 3 Months or Most Recently Relevant to Health Maintenance Results * Drug Monitoring, Phosphatidylethanol (PEth), Blood (08/25/2025 12:27 PM EDT) Phosphatidylethanol, Blood NEGATIVE [facility] Comment:CUTOFF 20 NG/ML PEth 16:0/18:2 (PLPEth) NEGATIVE [facility] Comment:CUTOFF 20 NG/ML PEth Comments SEE NOTE [facility] Comment:NOTES AND COMMENTSTh is drug testing is for medical treatment only. Analysiswas performed as non-forensic testing and these resultsshould be used only by healthcare providers to renderdiagnosis or treatment, or to monitor progress of medicalconditions.LDT Notes:Confirmation tests were developed and their analyticalperformance characteristics have been determined by [employer]. It has not been cleared or approved by the FDA.This assay has been validated pursuant to the CLIAregulations and is used for clinical purposes.Healthcare Providers needing Interpretation assistance,please contact us at [phone] ( ) M-F,8am to 10pm ESTPERFORMING SITE:[employer]/[address] Exploration Geologist: PATRICKW. BRIANA MD,PHD, CLIA: [id number] 08/25/2025 12:2 7 PM EDT 08/25/2025 12:32 PM EDT us Generic External Data Provider LAB BLOOD ORDERAB LES Final Result [facility] [address] [place] [phone] * (ABNORMAL) Hepatic Function Panel (08/25/2025 12:27 PM EDT) Bilirubin, Total 0.4 0.0 - 1.0 mg/dL [facility] Bilirubin, Direct 0.2 0.0 - 0.5 mg/dL [facility] Aspartate Amino Transferase 49(H) 5 - 31 U/L [facility] Alanine Aminotransferase 72(H) 0 - 31 U/L [facility] Total Protein 7.5 6.5 - 8.0 g/dL [facility] Albumin Level 4.2 3.5 - 5.0 g/dL [facility] Alkaline Phosphatase 83 39 - 117 U/L [facility] 08/25/2025 12:2 7 PM EDT 08/25/2025 12:32 PM EDT us Generic External Data Provider LAB BLOOD ORDERAB LES Final Result Performing Organization Address City/State/[facility] Co de Phone Number [facility] [address] [place] [phone] * MR Abdomen w/ and w/o Contrast (08/11/2025 2:29 PM EDT) Anatomical Region Laterality Modality Abdomen Magnetic Resonan ce 08/11/2025 2:29 PM EDT Narrative 08/11/2025 2:30 PM EDT [address] [address] Magnetic Resonance Report Signed Patient: Nisha Brown MR# : [id number] : 1985 Acct:[id number] Age/Sex: 40 / F ADM Date: 08/10/25 Loc: HO.MRI Attending Dr: Digna Torres MD Ordering Physician: Digna Torres MD Date of Service: 08/10/25 Procedure(s): MR abdomen wo/w con Accession Number(s): [id number] cc: Jairo Bingham MD; Digna Torres MD [...] in OV> 08/11/25 1430 DD/ 28 TD/TT: 08/11/251428 Home Appraiser: Procedure Note Donotuseinterpreter, Image - 08/11/2025 [place] [address] Magnetic Resonance Report Signed Patient: Kiki Brown# : [id number] : 1985Acct:[id number] Age/Sex: 40 / FADM Date: 08/10/25 Loc: HO.MRI Attending Dr: Digna Torres MD Ordering Physician: Digna Torres MD Date of Service: 08/10/25 Procedure(s): MR abdomen wo/w con Accession Number(s): [id number] cc: Jaior Bingham MD; Digna Torres MD Reason for [...] OV> 08/11/25 1430 DD/ 142 TD/TT: 08/11/251428 Home Appraiser: [facility] External Provider IMG MRI PROCEDURES Final Result * US Pelvis Transvaginal (08/09/2025 3:00 PM EDT) Anatomical Region Laterality Modality Pelvis Ultrasound 08/09/2025 3:00 PM EDT Narrative 08/09/2025 3:35 PM EDT [address] [address] Ultrasound Report Signed Patient: Nisha Brown MR# : [id number] : 1985 Acct:[id number] Age/Sex: 40 / F ADM Date: 08/09/25 Loc: HO.US Attending Dr: Harmony Sheldon CNM Ordering Physician: Harmony Sheldon CNM Date of Service: 08/09/25 Procedure(s): US pelvic and transvaginal Accession Number(s): [id number] cc: Jairo Bingham MD; Harmony Sheldon CNM [...] 08/09/25 1532 DD/ 1500 TD/TT: 08/09/25 1513 Home Appraiser: Procedure Note Donotuseinterpreter, Image - 08/09/[address] [address] Ultrasound Report Signed Patient: Kiki Brown# : [id number] : 1985Acct:[id number] Age/Sex: 40 / FADM Date: 08/09/25 Loc: HO.US Attending Dr: Harmony Sheldon CNM Ordering Physician: Harmony Sheldon CNM Date of Service: 08/09/25 Procedure(s): US pelvic and transvaginal Accession Number(s): [id number] cc: Jairo Bingham MD; Harmony Sheldon CNM [...] 08/09/25 1532 DD/ 1500 TD/TT: 08/09/25 1513 Home Appraiser: us [facility] External Provider IMG US PROCEDURES Final Result * (ABNORMAL) Lipid Panel with Reflex to Direct LDL (07/18/2025 8:26 AM EDT) Triglycerides 90 <150 mg/dL [facility] Comment:Desirable Triglyceri de: less than 150 mg/dLBorderline High Triglyceride 150-199 mg/dLHigh Triglyceride: 200-499 mg/dLVery High Triglyceride: greater than or equal to 5OO mg/dL Cholesterol 136 <200 mg/dL [facility] Comment:Desirable Cholestero l: less than 200 mg/dLBorderline High Cholesterol: 200-239 mg/dLHigh Cholesterol: greater than 239 mg/dL LDL Cholesterol Calculated 83 <100 mg/dL [facility] Comment:Desirable LDL: less than 100 mg/dLNear Optimal/Above Optimal LDL: 110- 129 mg/dLBorderline High LDL: 130-159 mg/dLHigh LDL: 160-189 mg/dLVery High LDL: greater than or equal to 190 mg/dL HDL Cholesterol 35(L) >40 mg/dL [facility] Comment:Desirable HDL: great er than 40 mg/dL Note: This HDL assay may give artificially low results in patients with liver disease. 07/18/2025 8:26 AM EDT 07/18/2025 8:26 AM EDT us Generic External Data Provider LAB BLOOD ORDERAB LES Final Result [facility] [address] [place] [phone] * (ABNORMAL) Comprehensive Metabolic Panel, Fasting (06/29/2025 10:55 AM EDT) Sodium 143 135 - 145 mmol/L [facility] Potassium 4.1 3.3 - 5.1 mmol/L [facility] Chloride 109(H) 96 - 108 mmol/L [facility] Carbon Dioxide 25 22 - 29 mmol/L [facility] Anion Gap 13 12 - 20 [facility] Urea Nitrogen (BUN) 10 9 - 16 mg/dL [facility] Creatinine, Serum 0.73 0.5 - 1.4 mg/dL [facility] Estimated Glomerular Filt Rate >60 [facility] Comment:Chronic Kidney Disea se: Estimated GFR < 60 mL/min/1.85l8Uvvrzh Kidney Disease: Estimated GFR < 15 mL/min/1.73m2 Glucose Fasting 79 60 - 99 mg/dL [facility] Calcium 8.9 8.4 - 10.2 mg/dL [facility] Bilirubin, Total 0.5 0.0 - 1.0 mg/dL [facility] Aspartate Amino Transferase 65(H) 5 - 31 U/L [facility] Alanine Aminotransferase 84(H) 0 - 31 U/L [facility] Total Protein 7.3 6.5 - 8.0 g/dL [facility] Albumin Level 4.1 3.5 - 5.0 g/dL [facility] Alkaline Phosphatase 77 39 - 117 U/L [facility] 06/29/2025 10:5 5 AM EDT 06/29/2025 10:55 AM EDT us Generic External Data Provider LAB BLOOD ORDERAB LES Final Result [facility] [address] [place] [address] [phone] * Vitamin B12 (Cobalamin) and Folate Panel, Serum (06/29/2025 10:55 AM EDT) Vitamin B12 473 200 - 900 pg/mL [facility] Comment:NORMAL 200-900 PG/ML INDETERMINATE 160-199 PG/ML DEFICIENT < 160 PG/ML Folate 9.3 > or = 4.0 ng/mL [facility] Comment:Reference Values:> o r = 4.0 ng/mL< 4.0 ng/mL suggests folate deficiency Methotrexate, aminopterin and folinic acid(leucovorin) are chemotherapeutic agents whose molecularstructures are similar to folate; therefore, the Architectfolate assay cannot be used for patients using these drugs. 06/29/2025 10:5 5 AM EDT 06/29/2025 10:55 AM EDT us Generic External Data Provider LAB BLOOD ORDERAB LES Final Result [facility] [address] [place] [phone] * TSH with Reflex to Free T4 (06/29/2025 10:55 AM EDT) Pathologist [facility] TSH reflex Free T4 1.34 0.32 - 4.0 uIU/mL [facility] 06/29/2025 10:5 5 AM EDT 06/29/2025 10:55 AM EDT Generic External Data Provider LAB BLOOD ORDERAB LES Final Result Performing Organization Address [facility] Co de Phone Number [facility] [address] [place] [phone] * Lyme Disease Ab with Reflex to Blot (IgG, IgM) (06/29/2025 10:55 AM EDT) [facility] Lyme Antibody Screen <0.90 index [facility] Comment:Index Interpretation ----- < 0.90 [...] when erythemamigrans is apparent.THIS TEST WAS PERFORMED AT:[facility] [place] [id number] MCELROY MD Lyme Blot TNP [facility] 06/29/2025 10:5 5 AM EDT 06/29/2025 10:55 AM EDT us Generic External Data Provider LAB BLOOD ORDERAB LES Final Result [facility] [address] [place] [phone] * CBC auto differential (06/29/2025 10:55 AM EDT) White Blood Count 7.7 4.8 - 10.8 X10*3/uL [facility] Red Blood Count 4.60 4.20 - 5.50 X10*6/uL [facility] Hemoglobin 13.9 12.0 - 16.0 g/dl [facility] Hematocrit 41.4 37.0 - 47.0 % [facility] Mean Corpuscular Volume 90.0 80.0 - 98.0 fL [facility] Mean Corpuscular Hemoglobin 30.2 27.0 - 33.0 pg [facility] Mean Corpuscular HGB Conc 33.6 31.0 - 35.0 g/dl [facility] Red Cell Distribution Width 12.4 11.0 - 16.0 % [facility] Platelet Count 298 160 - 400 X10*3/uL [facility] Mean Platelet Volume 10.3 9.4 - 12.3 fL [facility] Neutrophils Percent Auto 67.2 45 - 73 % [facility] Imm Gran Pct Auto 0.3 0.0 - 0.4 % [facility] Lymphocytes Percent Auto 24.9 20 - 40 % [facility] Monocytes Percent Auto 6.6 2 - 11 % [facility] Eosinophils Percent Auto 0.5 0 - 4 % [facility] Basophils Percent Auto 0.5 0 - 2 % [facility] NRBC Pct Auto 0.0 0.0 - 0.2 /100WBC [facility] Neutrophils Absolute Auto 5.2 2.0 - 8.3 x10*3/uL [facility] Imm Gran Abs Auto 0.02 0.00 - 0.03 X10*3/uL [facility] Lymphocytes Absolute Auto 1.9 1.2 - 4.9 X10*3/uL [facility] Monocytes Absolute Auto 0.5 0.1 - 1.2 X10*3/uL [facility] Eosinophils Absolute Auto 0.0 0.0 - 0.4 X10*3/uL [facility] Basophils Absolute Auto 0.0 0.0 - 0.2 X10*3/uL [facility] NRBC Abs Auto 0.000 0.0 - 0.012 X10*3/uL [facility] 06/29/2025 10:5 5 AM EDT 06/29/2025 10:55 AM EDT us Generic External Data Provider LAB BLOOD ORDERAB LES Final Result [facility] [address] [place] [phone] * Methylmalonic Acid (06/29/2025 10:55 AM EDT) Methylmalonic Acid 141 55 - 335 nmol/L [facility] Comment: Serum methylmalonic acid (MMA) [...] outcomes,such as neural tube defects and intrauterine growthrestriction.C-Note utilized Multi-Modal Decomposition(MMD) analysis to establish first and second trimester-specific MMA reference intervals in , as givenbelow:MMA, First trimester (<13 wks gestation): 58-167 nmol/LMMA, Second trimester (13-23 wks gestation):63-241 nmol/LThis test was developed and its analytical performancecharacteristics have been determined by [employer]. It has not been cleared or approved by theFDA. This assay has been validated pursuant to the CLIAregulations and is used for clinical purposes.THIS TEST WAS PERFORMED AT:[employer]/[id number] [place] [id number] WARREN MD,PHD 06/29/2025 10:5 5 AM EDT 06/29/2025 10:55 AM EDT us Generic External Data Provider LAB BLOOD ORDERAB LES Final Result Performing Organization Address [facility] de Phone Number [facility] [address] [place] [phone] * (ABNORMAL) Iron And Total Iron Binding Capacity (06/29/2025 10:55 AM EDT) Pathologist [facility] Iron 90 30 - 160 mcg/dL [facility] Total Iron Binding Capacity 215(L) 228 - 428 mcg/dL [facility] Percent Iron Saturation 42 15 - 50 % [facility] Unsaturated Iron Binding 125 ug/dL [facility] 06/29/2025 10:5 5 AM EDT 06/29/2025 10:55 AM EDT us Generic External Data Provider LAB BLOOD ORDERAB LES Final Result Performing Organization Address [facility] [address] [place] [phone] * Sed Rate by Modified Larisa (06/29/2025 10:55 AM EDT) Erythrocyte Sedimentation Rate 18 0 - 20 MM/HR [facility] Comment:Patients with polycy themia and many hemoglobin abnormalitiesmay have depressed sed rates whereas patients with anemiamay have elevated sed rates. 06/29/2025 10:5 5 AM EDT 06/29/2025 10:55 AM EDT us Generic External Data Provider LAB BLOOD ORDERAB LES Final Result Performing Organization Address [facility] Phone Number [facility] [address] [place] [phone] * (ABNORMAL) C-reactive Protein (06/29/2025 10:55 AM EDT) Pathologist [facility] C Reactive Protein 1.98(H) < or = 0.50 mg/dL [facility] 06/29/2025 10:5 5 AM EDT 06/29/2025 10:55 AM EDT Generic External Data Provider LAB BLOOD ORDERAB LES Final Result Performing Organization Address [facility]/ZIP Co de Phone Number [facility] [address] [place] [phone] * (ABNORMAL) Vitamin B1 (06/29/2025 10:55 AM EDT) [facility] Vitamin B1 <6(A) 8 - 30 nmol/L [facility] Comment:Vitamin supplementat ion within 24 hours prior toblood draw may affect the accuracy of the results.This test was developed and its analytical performancecharacteristics have been determined by [employer] [place], [place]. It hasnot been cleared or approved by the U.S. Food and DrugAdministration. This assay has been validated pursuantto the CLIA regulations and is used for clinicalpurposes.THIS TEST WAS PERFORMED AT:[facility] [place] [address]SCJUOJSGINETTE WARREN MD,PHD 06/29/2025 10:5 5 AM EDT 06/29/2025 10:55 AM EDT Generic External Data Provider LAB BLOOD ORDERAB LES Final Result Performing Organization Address [facility]/ZIP Co de Phone Number [facility] [address] [place] [phone] * Vitamin B6, Plasma (06/29/2025 10:55 AM EDT) [facility] Vitamin B6 5.3 2.1 - 21.7 ng/mL [facility] Comment:Vitamin supplementat ion within 24 hours prior toblood draw may affect the accuracy of the results.This test was developed and its analytical performancecharacteristics have been determined by [employer] [place], [place]. It hasnot been cleared or approved by the U.S. Food and DrugAdministration. This assay has been validated pursuantto the CLIA regulations and is used for clinicalpurposes.THIS TEST WAS PERFORMED AT:[facility] [place] [address]KWFCYKIGINETTE WARREN MD,PHD 06/29/2025 10:5 5 AM EDT 06/29/2025 10:55 AM EDT Generic External Data Provider LAB BLOOD ORDERAB LES Final Result Performing Organization Address [facility] Co de Phone Number [facility] [address] [place] [phone] * Magnesium (06/29/2025 10:55 AM EDT) Magnesium 2.2 1.6 - 2.6 mg/dL [facility] 06/29/2025 10:5 5 AM EDT 06/29/2025 10:55 AM EDT Generic External Data Provider LAB BLOOD ORDERAB LES Final Result Performing Organization Address [facility] de Phone Number [facility] [address] [place] [phone] * Homocysteine (06/29/2025 10:55 AM EDT) Homocysteine 6.8 < or = 11.0 umol/L [facility] Comment:Homocysteine is incr eased by functional deficiency offolate or vitamin B12. Testing for methylmalonic aciddifferentiates between these deficiencies. Other causesof increased homocysteine include renal failure, folateantagonists such as methotrexate and phenytoin, andexposure to nitrous oxide.Selhub J, et al., Kristie [employer]. 1999;131(5):331-9.THIS TEST WAS PERFORMED AT:[facility] [place] [id number] MCELROY MD 06/29/2025 10:5 5 AM EDT 06/29/2025 10:55 AM EDT Generic External Data Provider LAB BLOOD ORDERAB LES Final Result Performing Organization Address City/[facility]/ZIP Co de Phone Number [facility] [address] [place] [phone] * Hemoglobin A1c (06/29/2025 10:55 AM EDT) Hemoglobin A1c 5.4 <6.0 % [facility] Comment:Hemoglobin A1C Refer ence Range Adults: 4.8 - 6.0 % Non diabetic: < 6.0 % Goal: < 7.0 %Additional Action Suggested: > 8.0 %Note: Hemoglobin A1c results are invalid for patients with abnormal amounts of HbF. Blood transfusions may impact the HbA1c concentration in the patient sample. Estimated Average Glucose 108 mg/dL [facility] Comment:eAG = Estimated ave rage glucose which is %A1C expressed asaverage glucose, using the formula of the X3C-VfnqoykMdwainb Glucose study (ADAG), Diabetes Care, Vol.31,#8,May. 2007 06/29/2025 10:5 5 AM EDT 06/29/2025 10:55 AM EDT us Generic External Data Provider LAB BLOOD ORDERAB LES Final Result Performing Organization Address [facility]/ZIP Co de Phone Number [facility] [address] [place] [phone] * (ABNORMAL) Ferritin (06/29/2025 10:55 AM EDT) Ferritin 500(H) 10 - 250 ng/mL [facility] 06/29/2025 10:5 5 AM EDT 06/29/2025 10:55 AM EDT Generic External Data Provider LAB BLOOD ORDERAB LES Final Result Performing Organization Address [facility] Co de Phone Number [facility] [address] [place] [phone] * (ABNORMAL) Prothrombin Time-INR (06/12/2025 11:13 AM EDT) Pathologist [facility] Prothrombin Time 12.5(H) 10.9 - 12.4 SEC [facility] INTERNATIONAL NORM RATIO 1.1 0.9 - 1.1 [facility] Comment:INTERNATIONAL NORMAL IZED RATIO (INR) [...] ORDERAB LES Final Result Performing Organization Address [facility] de Phone Number [facility] [address] [place] [phone] * CBC (06/12/2025 11:13 AM EDT) [facility] White Blood Count 7.0 4.8 - 10.8 X10*3/uL [facility] Red Blood Count 4.69 4.20 - 5.50 X10*6/uL [facility] Hemoglobin 13.9 12.0 - 16.0 g/dl [facility] Hematocrit 42.9 37.0 - 47.0 % [facility] Mean Corpuscular Volume 91.5 80.0 - 98.0 fL [facility] Mean Corpuscular Hemoglobin 29.6 27.0 - 33.0 pg [facility] Mean Corpuscular HGB Conc 32.4 31.0 - 35.0 g/dl [facility] Red Cell Distribution Width 12.5 11.0 - 16.0 % [facility] Platelet Count 290 160 - 400 X10*3/uL [facility] Mean Platelet Volume 10.3 9.4 - 12.3 fL [facility] NRBC Pct Auto 0.0 0.0 - 0.2 /100WBC [facility] NRBC Abs Auto 0.000 0.0 - 0.012 X10*3/uL [facility] 06/12/2025 11:1 3 AM EDT 06/12/2025 11:49 AM EDT us Generic External Data Provider LAB BLOOD ORDERAB LES Final Result [facility] [address] [place] [phone] * (ABNORMAL) Comprehensive Metabolic Panel (06/12/2025 12:00 AM EDT) Sodium 143 135 - 145 mmol/L [facility] Potassium 4.0 3.3 - 5.1 mmol/L [facility] Chloride 109(H) 96 - 108 mmol/L [facility] Carbon Dioxide 26 22 - 29 mmol/L [facility] Anion Gap 12 12 - 20 [facility] Urea Nitrogen (BUN) 12 9 - 16 mg/dL [facility] Creatinine, Serum 0.79 0.5 - 1.4 mg/dL [facility] Estimated Glomerular Filt Rate >60 [facility] Comment:Chronic Kidney Disea se: Estimated GFR < 60 mL/min/1.98g9Bssruo Kidney Disease: Estimated GFR < 15 mL/min/1.73m2 Glucose 85 60 - 115 mg/dL [facility] Calcium 9.1 8.4 - 10.2 mg/dL [facility] Bilirubin, Total 0.4 0.0 - 1.0 mg/dL [facility] Aspartate Amino Transferase 40(H) 5 - 31 U/L [facility] Alanine Aminotransferase 64(H) 0 - 31 U/L [facility] Total Protein 7.3 6.5 - 8.0 g/dL [facility] Albumin Level 4.2 3.5 - 5.0 g/dL [facility] Alkaline Phosphatase 76 39 - 117 U/L [facility] 06/12/2025 06/12/2025 Generic External Data Provider LAB BLOOD ORDERAB LES Final Result Performing Organization Address [facility] Co de Phone Number [facility] [address] [place] [phone] * Hepatitis Panel, General (03/30/2025 9:16 AM EDT) Hepatitis A IgM Nonreactive Nonreactive [facility] Comment:IgM antibodies to PFEIFFER V not detected; does not exclude earlyacute or recovered HAV infection. ~Hepatitis B Surface Antibody REACTIVE Nonreactive [facility] Comment:REACTIVE: > 11.99 mI U/mL Hepatitis B Core Antibody Nonreactive Nonreactive [facility] Hepatitis C Antibody Nonreactive Nonreactive [facility] Comment:Antibodies to HCV no t detected; does not exclude early acuteHCV infection. Hepatitis B Surface Ag Negative Negative [facility] Blood 03/30/2025 9:16 AM EDT 03/30/2025 11:37 AM EDT Jairo Bingham MD LAB BLOOD ORDERABLES Fin al Result Performing Organization Address [facility]/ZIP Co de Phone Number [facility] [address] [place] [phone] * HIV-1/2 Antigen and Antibodies, Fourth Generation, with Reflexes (03/30/2025 9:16 AM EDT) HIV AB/AG Nonreactive Nonreactive [facility] Comment:HIV-1 p24 Ag and/or HIV-1/HIV-2 Ab not detected.A test result that is nonreactive does not exclude thepossibility of exposure to or infection with HIV-1 and/orHIV-2. Nonreactive results in this assay for individualswith prior exposure to HIV-1 and/or HIV-2 may be due toantigen and antibody levels that are below the limit ofdetection of this assay.The [employer] [employer] HIV Ag/Ab Combo assay result andsupplemental assay results should be interpreted inconjunction with the patient's clinical presentation,history and other laboratory results. If the results areinconsistent with clinical evidence, additional testing issuggested to confirm the result. Blood Venous blood specimen / Unknown 03/30/2025 9:16 AM EDT 03/30/2025 11:37 AM EDT Jairo Bingham MD LAB BLOOD ORDERABLES Manjit jayne Result - Final [facility] [address] [place] [phone] * BI Mammogram Screening Tomosynthesis Bilateral (01/05/2025 2:00 PM EDT) Anatomical Region Laterality Modality Breast Bilateral Mammography 01/05/2025 2:00 PM EDT Narrative 01/14/2025 10:59 AM EDT [facility] [address] [place] [address] Mammography Report Signed Patient: Nisha Brown MR# : [id number] : 1985 Acct:[id number] Age/Sex: 39 / F ADM Date: 01/05/25 Loc: RAVI Attending Dr: Jairo Bingham MD Ordering Physician: Jairo Bingham MD Results: 2Be nign Findings Date of Service: 01/05/25 Follow Up: 1 Year From Orig inal Mammogram Procedure(s): MM tomosynthesis screening BI Accession Number(s): [id number] cc: Jairo Bingham MD EXAMINATION: MM SCREENING [...] 01/14/25 1057 DD/ 1400 TD/TT: 01/05/25 1415 Home Appraiser: Procedure Note Donotuseinterpreter, Image - 01/14/2025 [facility] [address] [place] [address] Mammography Report Signed Patient: Chaparro BrownR# : [id number] : 1985Acct:[id number] Age/Sex: 39 / FADM Date: 01/05/25 Loc: HO.MAMMO Attending Dr: Jairo Bingham MD Ordering Physician: Jairo Bingham MDResults: 2Be nign Findings Date of Service: 01/05/25Follow Up: 1 Year From Orig inal Mammogram Procedure(s): MM tomosynthesis screening BI Accession Number(s): [id number] cc: Jairo Bingham MD EXAMINATION: MM SCREENING [...] 01/14/25 1057 DD/ 1400 TD/TT: 01/05/25 1415 Home Appraiser: Jairo Bingham MD [facility] BI PROCEDURES Edited Result - Final * HPV E6/E7 RFLX XENIA 16 18/45 (02/12/2022 3:42 PM EDT) HPV mRNA E6/E7 rflx Not Detected Not Detected [facility] Comment: Methodology: Clinical Rn Liaison-Mediated Amplification This assay detects E6/E7 viral messenger RNA (mRNA) from 14 high-risk HPV types (16,18,31,33,35,39,45,51,52,56,58,59,66,68). The analytical performance characteristics of this assay have been determined by [employer]. The modifications have not been cleared or approved by the FDA. This assay has been validated pursuant to the CLIA regulations and is used for clinical purposes. For additional information, please refer to http://education.[employer]/faq/GLU910b0 (This link if provided for information/ educational purposes only.) THIS TEST WAS PERFORMED AT: [facility] [address] [place] [address] [address],[place] [phone] TREY MCELROY MD 02/12/2022 3:42 PM EDT [facility] HISTORICAL/NON ORDERABLE LABS Fi nal Result [facility] [address] * Pap Smear (02/12/2022) Historical Provider HEALTH MAINTENANCE Final Result from Last 3 Months or Most Recently Relevant to Health Maintenance [facility] Care Teams Power Plant Mechanic Relationship Specialty Start Date End Date Jairo Bingham MD [address] [place] [phone] PCP - General Family Medicine 08/16/18 Teressa Winn Director Of Home Care HospiceRepairer Evaporator 07/19/25
--- OUTSIDE RECORDS SUMMARY | 2025-09-05 14:07 | XMS_ITS | Encounter Summary ---
Author Organization [employer] Address [address] [facility] 7t [place] [address] Care Team Providers Care Power Plant Electrician Name Role Phone Yolanda Aaron MD Primary Care Provider + Cris Cabrera RN Unavailable [phone] Encounter Details Date Type Department Care Team (Late st Contact Info) Description 12/01/2022 Abstract [facility] MEDICINE [address] [place], [place] [phone] Yolanda Aaron MD [address] [place], [place] [phone] Social History Tobacco Use Types Packs/Day Years [...] Visit [facility] [address] [place] [phone] Yolanda Aaron MD [address] [place] [phone] documented as of this encounter Visit Diagnoses Not on filedocumented in this encounter Additional Health Concerns Assessment Noted Time PHQ-9 Depression Total Score: 11 023 11:41 AM EST documented as of this encounter Care Teams Power Plant Electrician Relationship Specialty Start Date End Date Yolanda Aaron MD [address] [place] [phone] PCP - General Family Medicine 08/16/18 Cris Cabrera RN [address] [place] [phone] Rn TransplantSustainable Systems Analyst 04/25/24 08/03/24 Teressa Winn Rn TransplantSustainable Systems Analyst 07/19/25 documented as of this encounter
--- OUTSIDE RECORDS SUMMARY | 2025-09-05 14:07 | XMS_ITS | Encounter Summary ---
Author Organization [employer] Address [address] [facility] 7t [place] [address] Care Team Providers Care Television Schedule Coordinator Name Role Phone Yolanda Aaron MD Primary Care Provider + Cris Cabrera RN Unavailable [phone] Encounter Details Date Type Department Care Team (Late st Contact Info) Description 12/24/2022 Orders Only [facility] [address] [place], [place] [phone] Yolanda Aaron MD [address] [place], [place] [phone] Social History Tobacco Use Types Packs/Day Years [...] Description 09/29/2025 11:15 AM EST Office Visit [facility] [address] [place] [phone] Yolanda Aaron MD [address] [place] [phone] documented as of this encounter Visit Diagnoses Not on filedocumented in this encounter Additional Health Concerns Assessment Noted Time PHQ-9 Depression Total Score: 11 023 11:41 AM EST documented as of this encounter Care Teams Television Schedule Coordinator Relationship Specialty Start Date End Date Yolanda Aaron MD [address] [place] [phone] PCP - General Family Medicine 08/16/18 Cris Cabrera RN [address] [place] [phone] Filter Tender JellyChemist Proteins 04/25/24 08/03/24 Teressa Winn Filter Tender JellyChemist Proteins 07/19/25 documented as of this encounter
--- OUTSIDE RECORDS SUMMARY | 2025-09-05 14:07 | XMS_ITS | Encounter Summary ---
Author Organization [employer] Address [address] [facility] 7t [place] [address] Care Team Providers Care Glass Pulverizer Equipment Operator Name Role Phone Yolanda Aaron MD Primary Care Provider + Cris Cabrera RN Unavailable [phone] Encounter Details Date Type Department Care Team (Late st Contact Info) Description 04/20/[address] [facility] MEDICINE [address] [place] [phone] Yolanda Aaron MD [address] [place] [address] [phone] Social History Tobacco Use Types Packs/Day Years [...] 11:15 AM EST Office Visit [facility] MEDICINE [address] [place] [phone] Yolanda Aaron MD [address] [place] [address] documented as of this encounter Visit Diagnoses Not on filedocumented in this encounter Additional Health Concerns Assessment Noted Time PHQ-9 Depression Total Score: 13 023 2:39 PM EDT documented as of this encounter Care Teams Glass Pulverizer Equipment Operator Relationship Specialty Start Date End Date Yolanda Aaron MD [address] [place] [address] PCP - General Family Medicine 08/16/18 Cris Cabrera RN [address] [place] [phone] Box StrapperCar Audio Installer 04/25/24 08/03/24 Teressa Winn Box StrapperCar Audio Installer 07/19/25 documented as of this encounter
--- OUTSIDE RECORDS SUMMARY | 2025-09-05 14:07 | XMS_ITS | Encounter Summary ---
Author Organization [employer] Address [address] [facility] [address] [place] [address] Care Team Providers Care Shoemaker Apprentice Name Role Phone Yolanda Aaron MD Primary Care Provider + Cris Cabrera RN Unavailable [phone] Encounter Details Date Type Department Care Team (Late st Contact Info) Description 08/05/[address] [facility] MEDICINE [address] [place], [place] [phone] Yolanda Aaron MD [address] [place] [address] Social History Tobacco Use Types Packs/Day Years [...] 11:15 AM EST Office Visit [facility] MEDICINE [address] [place] [address] Yolanda Aaron MD [address] [place] [phone] documented as of this encounter Visit Diagnoses Not on filedocumented in this encounter Additional Health Concerns Assessment Noted Time PHQ-9 Depression Total Score: 023 3:33 PM EDT documented as of this encounter Care Teams Shoemaker Apprentice Relationship Specialty Start Date End Date Yolanda Aaron MD [address] [place] [address] PCP - General Family Medicine 08/16/18 Cris Cabrera RN [address] [place] [phone] Bridge Crane OperatorTop Collar Maker 04/25/24 08/03/24 Teressa Winn Bridge Crane OperatorTop Collar Maker 07/19/25 documented as of this encounter
== END 2025-09-05 12:21 | disposition home or self-care (01) ==
LOC: HO.MAMMO 12:20
PROVIDERS: PCP Internal Medicine; Visit Provider Internal Medicine
DX: N64.4 Mastodynia (principal); N63.12 Unspecified lump in the right breast, upper inner quadrant
CPT/HCPCS: 76642; 77062; 77066

== ENCOUNTER → 2025-09-05 12:30 | Outpatient (BNV) | payer MEDICAID, SELFPAY | PROVIDERS: PCP Internal Medicine; Visit Provider Radiology Body Imaging | DX: N64.4 Mastodynia (principal) | CPT/HCPCS: 76642; 77062; 77066 ==

== ENCOUNTER 2025-09-11 09:18 | Outpatient (AMB) | payer MEDICAID, SELFPAY ==
--- NOTE | 2025-09-11 09:24 | A.OFFVIS_ITS ---
Intake Visit Reasons: f/u mri Allergies No Known Allergies Allergy (Verified 09/11/25 09:24) [facility] Medical History Pelvic inflammatory disease (PID) Well woman exam with routine gynecological exam Breast lump Breast pain Pelvic pain Obesity UTI (urinary tract infection) Encounter for screening examination for sexually transmitted disease Bacterial vaginosis Vaginal itching Fibroadenoma Vaginal discharge Vaginal odor Fracture of orbital floor, blow-out, right, closed Problematic vaginal discharge Mass of right breast Microcalcification of left breast on mammography Abnormal Pap smear of cervix Pulmonary embolism Bilateral pulmonary embolism PE (pulmonary thromboembolism) DVT (deep venous thrombosis) Surgical History Hx of tubal ligation Hx of foot surgery Family History Maternal Aunt Breast cancer, Onset Age: 29 Colon cancer Ovarian cancer Brother Diabetes Sister Diabetes Maternal Aunt Metastasis from esophageal cancer Father Colon cancer Family/Other Colon cancer Ovarian cancer Mother Breast cancer Social History Household Members: Children Housing: Apartment Are you a primary resident care coordinator to a significant other at home: No Do you presently have visiting nurse or other home services: No Alcohol intake: never Patient Tobacco Use Status: Current everyday Tobacco user Tobacco use type: Cigarette service: No Current occupational status: unemployed Gender identity: Female Female Reproductive History Menstrual Age of Menarche: 13 Coding
--- NOTE | 2025-09-11 09:24 | A.OFFVIS_ITS ---
Vital Signs 09/11/25 09:28 Height 5 ft 4 in Weight 173 lb BMI 29.7 BP 114/66 Blood Pressure Location Lt brachial Position Sitting Pulse 64 Intake Visit Reasons: f/u mri Intake Note: Patient follow up for constipation and MRI results Patient cc: painful constipation on and off, also acid reflux with burning sensation come and go. Denies any other GI issues for today. Waterworks Operator Required: Yes Waterworks Operator Name: [facility] Accompanied by: Self / Same As Patient Allergies No Known Allergies Allergy (Verified 09/11/25 09:24) HPI Comments Details: This is a 38y.o F with PMH of who is here for elevated LFTs. Seen with honing machine set up operator tool. 07/15/23 Pt reports having intermittent RUQ pain that started around earlier this year associated with nausea. Used to drink etOH up to 4-5 nips of fireball and a 12 pack of beer in one day x 5 years. Has recently hard liqupr quit since her hospital visit earlier this year when she was told about liver inflammation. COntinues to consume 3-4 beers over the weekends still. Sometimes also smokes tobacco. No marijuana or IVDU. Pt also lost almost 30 lbs in the last 3 months after she cut down on drinking as well modified her diet. 09/09/23: Here for follow up for elevated LFTs. Work up done after last visit reviewed with the pt. Essentially consistent with elevated LFTs 2/2 etOH use. Pt reports that since last visit has cut down etOH intake to once a week - however still consumes 5-6 beers in that one session. Otherwise no abd pain, N,V, D. No changes in bowel habits. 03/15/25: Was lost to follow up. Has cut down drinking. Drinks 6 beers in 2-3 weeks compared to 6 beers daily. No more fireballs. LFTs better than before but still not completely normal. Pt herself reports constipation. Has 2-3 BMs per week assoc with bloating and abd discomfort. Takes stool softener which doesnt always help. Fam hx of colon cancer in father - dx at age 70s. Maternal aunt and mat grandma also from colon cancer. Laboratory Tests 12/08/24 12/08/24 01/24/25 11:17 23:33 09:20 AST 81 H 75 H 34 H ALT 101 H 106 H 50 H 06/14/25: Here for routine 3 month follow up. Reports reports good response to Linzess 72 that was prescribed in March. Needs a refill. In terms of alcohol use, reports sobriety since April 28 weekend. Laboratory Tests 06/12/25 06/12/25 11:13 Unknown PT 12.5 H Total Bilirubin 0.4 AST 40 H ALT 64 H Albumin 4.2 09/11/25: Here for follow up. MRI reviewed, no obv cirrhosis but does have steatosis, suspect advanced fibrosis based on splenomegaly. LFts more or less unchanged. Reviewed with the pt that since this is likely metALD, recommend increase in physical activity and weight loss. No DM or hyperchol based on labs in Jun. Constipation responds well to Linzess however when she skips a few doses falls back into constipation which takes at least 2-3 days before adequately relieved. [facility] Medical History Pelvic inflammatory disease (PID) Well woman exam with routine gynecological exam Breast lump Breast pain Pelvic pain Obesity UTI (urinary tract infection) Encounter for screening examination for sexually transmitted disease Bacterial vaginosis Vaginal itching Fibroadenoma Vaginal discharge Vaginal odor Fracture of orbital floor, blow-out, right, closed Problematic vaginal discharge Mass of right breast Microcalcification of left breast on mammography Abnormal Pap smear of cervix Pulmonary embolism Bilateral pulmonary embolism PE (pulmonary thromboembolism) DVT (deep venous thrombosis) Surgical History Hx of tubal ligation Hx of foot surgery Family History Maternal Aunt Breast cancer, Onset Age: 29 Colon cancer Ovarian cancer Brother Diabetes Sister Diabetes Maternal Aunt Metastasis from esophageal cancer Father Colon cancer Family/Other Colon cancer Ovarian cancer Mother Breast cancer Social History Household Members: Children Housing: Apartment Are you a primary point of care specialist to a significant other at home: No Do you presently have visiting nurse or other home services: No Alcohol intake: never Patient Tobacco Use Status: Current everyday Tobacco user Tobacco use type: Cigarette service: No Current occupational status: unemployed Gender identity: Female Female Reproductive History Menstrual Age of Menarche: 13 Review of Systems Const All systems reviewed & are unremarkable except as noted in HPI and below Physical Exam Vital Signs: Last Vital Signs Pulse 64 09/11/25 09:28 BP 114/66 09/11/25 09:28 BMI result Body Mass Index 29.7 Assessment & Plan Assessment & Plan (1) Elevated LFTs: Code(s): R79.89 - Other specified abnormal findings of blood chemistry Category: Medical (2) Chronic idiopathic constipation: Code(s): K59.04 - Chronic idiopathic constipation Category: Medical (3) Family history of colon cancer: Code(s): Z80.0 - Family history of malignant neoplasm of digestive organs Category: Medical Plan 1. 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 Congratulated on sobriety since March. Suspect likely has ongoing non-etOH related steatohepatitis given persistenyl elevated LFTs in ALT>AST ratio. She was counseled on modificaiton of metabolic factors to avoid worsening of non-etOH steatohepatitis. Plan: - Cont EtOH abstinence - Repeat US abd and LFTs in 6 months - 10% TBW in 6 months - At least 150 mins/week of mod intensity exercise 2. CIC Likely 2/2 lack of fiber and adequate hydration. Tried MiraLax and bisacodyl without much response. Now on Linzess but develops constipation when she skips > 2 doses. Reviewed strategies to improve adherence such as setting up a pill box or phone reminders. Can take additional bisacodyl if no BM >3 days. Plan: - Cont fiber supplementation - Encourage hydration - Elevate legs while having BM - Cont linzess 72 - Add bisacodyl 10 mg if no BM > 3 days. 3. Fam hx of CRC Hx of CRC in father in his 70s. Due for colo. To be reviewed at next visit. Follow up after US Orders: Orders US abdomen complete 6 Months R74.01 - Elevation of levels of liver transaminase levels Liver Panel 6 Months R74.01 - Elevation of levels of liver transaminase levels Medications: New bisacodyl Take if no BM in 3 days despite taking linzess daily 10 mg (2 x 5 mg) PO DAILY PRN 60 tabs 0RF constipation Patient Instructions: - no cirrhosis noted on MRI which is good news. - Cont to abstain from alcohol. - 10% of total body weight loss recommended over the next 6 months. i.e at least 17 lbs. - Repeat ultrasound and labs to be done in 6 months. Coding Level of Care Code Est Pt Level 4 (55183) Diagnoses Elevated LFTs R79.89 Chronic idiopathic constipation K59.04 Family history of colon cancer Z80.0
[2025-09-11 09:28] VITALS: BP 114/66; PULSE 64; BMI 29.7
== END 2025-09-11 09:54 | disposition home or self-care (01) ==
LOC: HO.HGI 09:19
PROVIDERS: PCP Internal Medicine; Visit Provider Internal Medicine
DX: R79.89 Other specified abnormal findings of blood chemistry (principal); K59.04 Chronic idiopathic constipation; Z80.0 Family history of malignant neoplasm of digestive organs
CPT/HCPCS: 99214

== ENCOUNTER → 2025-09-11 09:18 | Outpatient (BNVA) | payer MEDICAID, SELFPAY | PROVIDERS: PCP Internal Medicine; Visit Provider Internal Medicine | DX: R74.01 Elevation of levels of liver transaminase levels (principal); K59.04 Chronic idiopathic constipation; R79.89 Other specified abnormal findings of blood chemistry; Z80.0 Family history of malignant neoplasm of digestive organs | CPT/HCPCS: 99212 ==

== ENCOUNTER 2025-09-14 12:38 | Outpatient (REF) | payer MEDICAID, SELFPAY ==
--- NOTE | ~2025-09-14 | US_ITS ---
EXAMINATION: US PELVIS TRANSABDOMINAL AND TRANSVAGINAL HISTORY: R10.2 - Pelvic and perineal pain COMPARISON: Comparison is made with the prior examination dated 08/09/2025. TECHNIQUE: Transabdominal and endovaginal real-time 2D phelan-scale ultrasound was performed. FINDINGS: Uterus: The uterus is normal in size, measuring 8.5 x 5.5 x 6.0 cm. Myometrium has a normal echotexture. No fibroids are identified. Endometrium: The endometrial stripe measures 9 mm in thickness. Right ovary: The right ovary measures 2.5 x 1.9 x 2.3 cm. The right ovary is normal in size and echotexture. There is a 10 mm exophytic versus paraovarian cyst. Left ovary: The left ovary measures 3.5 x 2.1 x 4.2 cm. The left ovary is normal in size and echotexture. Pelvic fluid: There is a small amount of free fluid in the cul-de-sac.. US/US pelvic and transvaginal IMPRESSION: 10 mm right-sided exophytic cyst versus paraovarian cyst. Otherwise unremarkable pelvic ultrasound. Electronically signed by: Aleks Berman MD 09/14/2025 02:11 PM [facility]
== END 2025-09-14 12:39 | disposition home or self-care (01) ==
LOC: HO.US 12:38
PROVIDERS: PCP Internal Medicine; Visit Provider Advanced Practice Midwife
DX: R10.20 Pelvic and perineal pain unspecified side (principal)
CPT/HCPCS: 76830; 76856

== ENCOUNTER → 2025-09-14 12:41 | Outpatient (BNV) | payer MEDICAID, SELFPAY | PROVIDERS: PCP Internal Medicine; Visit Provider Radiology Diagnostic Radiology | DX: N83.291 Other ovarian cyst, right side (principal); R10.20 Pelvic and perineal pain unspecified side | CPT/HCPCS: 76830; 76856 ==

== ENCOUNTER 2025-09-25 07:54 | Outpatient (AMB) | payer MEDICAID, SELFPAY ==
--- OUTSIDE RECORDS SUMMARY | 2025-09-25 07:58 | XMS_ITS | Encounter Summary ---
Author Organization [employer] Address [address] [facility] [address] [place] [address] Care Team Providers Care Fur Designer Name Role Phone Yolanda Aaron MD Primary Care Provider + Cris Cabrera RN Unavailable [phone] Encounter Details Date Type Department Care Team (Late st Contact Info) Description 04/20/2023 Abstract [facility] [address] [place] [phone] Yolanda Aaron MD [address] [place] [address] [phone] Social History Tobacco Use Types Packs/Day Years [...] [facility] [address] [place] [phone] Yolanda Aaron MD [address] [place] [address] documented as of this encounter Visit Diagnoses Not on filedocumented in this encounter Additional Health Concerns Assessment Noted Time PHQ-9 Depression Total Score: 13 023 2:39 PM EDT documented as of this encounter Care Teams Fur Designer Relationship Specialty Start Date End Date Yolanda Aaron MD [address] [place] [address] PCP - General Family Medicine 08/16/18 Cris Cabrera RN [address] [place] [id number] Gravity Meter OperatorWharf Hand 04/25/24 08/03/24 Teressa Winn Gravity Meter OperatorWharf Hand 07/19/25 documented as of this encounter
--- OUTSIDE RECORDS SUMMARY | 2025-09-25 07:58 | XMS_ITS | Encounter Summary ---
Author Organization [employer] Address [address] [facility] 7[address] [place] [address] Care Team Providers Care Document Management Analyst Name Role Phone Yolanda Aaron MD Primary Care Provider + Cris Cabrera RN Unavailable [phone] Encounter Details Date Type Department Care Team (Late Contact Info) Description 07/20/2023 Orders Only [facility] [address] [place] [phone] Provider, MD Estelle Social History Tobacco Use [...] Office Visit [facility] [address] [place] [phone] Yolanda Aaron MD [address] [place] [address] documented as of this encounter Procedures Procedure [...] documented as of this encounter Care Teams Document Management Analyst Relationship Specialty Start Date End Date Yolanda Aaron MD [address] [place] [address] PCP - General Family Medicine 08/16/18 Cris Cabrera RN [address] [place] [phone] Infusion Therapy NurseFrame Operator 04/25/24 08/03/24 Teressa Winn Infusion Therapy NurseFrame Operator 07/19/25 documented as of this encounter
--- OUTSIDE RECORDS SUMMARY | 2025-09-25 07:58 | XMS_ITS | Encounter Summary ---
Author Organization [employer] Address [address] [facility] [address] [place] [address] Care Team Providers Care Storage And Backup Administrator Name Role Phone Yolanda Aaron MD Primary Care Provider + Cris Cabrera RN Unavailable [phone] Encounter Details Date Type Department Care Team (Late st Contact Info) Description 12/01/2022 Abstract [facility] [address] [place], [place] [phone] Yolanda Aaron MD [address] [place], [place] [phone] Social History Tobacco Use Types Packs/Day Years [...] Description 09/29/2025 11:15 AM EST Office Visit [facility] [address] [place] [phone] Yolanda Aaron MD [address] [place] [phone] documented as of this encounter Visit Diagnoses Not on filedocumented in this encounter Additional Health Concerns Assessment Noted Time PHQ-9 Depression Total Score: 11 023 11:41 AM EST documented as of this encounter Care Teams Storage And Backup Administrator Relationship Specialty Start Date End Date Yolanda Aaron MD [address] [place] [phone] PCP - General Family Medicine 08/16/18 Cris Cabrera RN [address] [place] [phone] Religious Ritual SlaughtererFurniture Mover Helper 04/25/24 08/03/24 Teressa Winn Religious Ritual SlaughtererFurniture Mover Helper 07/19/25 documented as of this encounter
--- OUTSIDE RECORDS SUMMARY | 2025-09-25 07:58 | XMS_ITS | Clinical Summary ---
Author Organization [employer] Address [address] [place] [address] Care Team Providers Care Wood Tile Installation Helper Name Role Phone Jairo Bingham MD Primary Care Provider + Allergies No known active allergies Medications * This document contains information received from the source organization and may not represent a complete record from that organization. Calcium Carb-Cholecalci ferol 500-10 MG-MCG tablet Take 1 tablet by mouth in the morning and at bedtime. 2 Active ergocalciferol (Vitamin D2) 1.25 MG (67909 UT) capsule TAKE 1 CAPSULE BY MOUTH [...] steroid injection. Bipolar I disorder with depression ([facility]) 02/202411/30/2023 Elevated liver enzymes 11/30/2023 Panic attack [...] referred to AUD program. Fu closely with recovery collector Hep B up to date Varicose veins [...] be referred to [facility] for Support and Recovery program. She declines [...] 500-700s, she has been reluctant to continue roasterman anticoagulation. F yearly with hematology Re consutl [...] is able to initiate care with [facility] prescriber, she will go ahead and do that instead. She should call [facility] and/or consult her PCP with any [...] close fu with mental health provider and recovery collector Counseled to cut down etoh use Pt [...] Plan (12/03/2022 11:27 AM EST): FU by HARDENER HELPER. Pat for PAP and pelvic US Coming [...] adult 09/23/2022 02/0 05/2023 Alcoholic hepatitis 09/23/2022 03/16/20 25 Assessment & [...] Decreased breath sounds 08/16/2018 12/2 03/2024 Encounters Date Type Department Care Team Description 09/14/2025 Patient Outreach [facility] [address] [place] [id number] Jairo Bingham MD Pre-visit Planning ((Unable to reach for PVP screening, LVM) to be completed in office ) 08/25/2025 Orders Only GENERIC EXTERNAL DATA DEPARTMENT Provider, Generic External Data 08/10/2025 Results Follow-Up [facility] [address] [place] [id number] Jairo Bingham MD US Pelvis Transvaginal 07/19/2025 Telephone [facility] [address] [place], [place] [phone] Jairo Bingham MD Care Coordination (ICP Care Plan) 07/18/2025 Orders Only GENERIC EXTERNAL DATA DEPARTMENT Provider, Generic External Data 07/14/2025 3:00 PM EDT Office Visit [address] [address] [place], Kaci, 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 reschedule 06/29/2025 Orders [...] Description 09/29/2025 11:15 AM EST Office Visit [facility] [address] [place] [address] Jairo Bingham MD [address] [place] [address] Health Maintenance Due Date Last Done Comments [...] (#1) 2025 Depression Monitoring 09/16/2025 03/16/2025, 025 Disability Screening 03/16/2026 03/16/2025 Tobacco Screening 07/17/2026 07/17/2025 Mammogram 09/05/2026 09/05/2025, 08/26, 01/05/2025, Additional history exists Cervical Cancer Screening 02/12/2027 [...] Associated Diagnosis Comments US PELVIS TRANSVAGINAL Routine 1:45 PM EST BI US BREAST LIMITED RIGHT Routine 09/05 1:05 PM EST BI MAMMOGRAM DIAGNOSTIC TOMOSYNTHESIS BILATERAL Routine 09/05/2025 12:30 PM EST DRUG MONITORING, PHOSPHATIDYLETHANOL (PETH), BLOOD Routine 08/25/2025 [...] HEMOGLOBIN A1C Routine 06/29/2025 10:55 AM EDT HEPATITIS PANEL, GENERAL Routine 025 9:16 AM EDT Sexually transmitted disease counseling HIV 1/2 ANTIGEN/ANTIBODY, FOURTH GENERATION W/RFL Routine 03/30/2025 9:16 AM EDT Sexually transmitted disease counseling ZZZ HISTORICAL HPV E6/E7 RFLX XENIA 16 18/45 Routine 02/12/2022 3:42 PM EDT HM PAP/HPV Routine 02/12/2022 from Last 3 Months or Most Recently Relevant to Health Maintenance Results * US Pelvis Transvaginal (09/14/2025 1:45 PM EST) Only the most recent of2 resultswithin the time period is included. Anatomical Region Laterality Modality Pelvis Ultrasound 09/14/2025 1:45 PM EST Narrative 09/14/2025 2:14 PM EST [address] [address] Ultrasound Report Signed Patient: Nisha Brown MR# : [id number] : 1985 Acct:[id number] Age/Sex: 40 / F ADM Date: 09/14/25 Loc: HO.US Attending Dr: Harmony Sheldon CNM Ordering Physician: Harmony Sheldon CNM Date of Service: 09/14/25 Procedure(s): US pelvic and transvaginal Accession Number(s): [id number] cc: Jairo Bingham MD; Harmony Sheldon CNM Reason for Exam: R10.2 - Pelvic and perineal pain EXAMINATION: US PELVIS TRANSABDOMINAL AND TRANSVAGINAL HISTORY: R10.2 - Pelvic and perineal pain COMPARISON: Comparison is made with the prior examination dated 08/09/2025. TECHNIQUE: Transabdominal and endovaginal real-time 2D patricia-scale ultrasound was performed. FINDINGS: Uterus: The uterus is normal in size, measuring 8.5 x 5.5 x 6.0 cm. Myometrium has a normal echotexture. No fibroids are identified. Endometrium: The endometrial stripe measures 9 mm in thickness. Right ovary: The right ovary measures 2.5 x 1.9 x 2.3 cm. The right ovary is normal in size and echotexture. There is a 10 mm exophytic versus paraovarian cyst. Left ovary: The left ovary measures 3.5 x 2.1 x 4.2 cm. The left ovary is normal in size and echotexture. Pelvic fluid: There is a small amount of free fluid in the cul-de-sac.. US/US pelvic and transvaginal IMPRESSION: 10 mm right-sided exophytic cyst versus paraovarian cyst. Otherwise unremarkable pelvic ultrasound. Electronically signed by: Aleks Berman MD 09/14/2025 02:11 PM EST Dictated By: Aleks Berman MD Signed By: <Electronically signed by Aleks Berman MD in OV> 09/14/25 1411 DD/ 1345 TD/TT: 09/14/25 1356 Poolroom/Poolhall Manager: Procedure Note Donotuseinterpreter, Image - 09/14/2025 [place] [address] Ultrasound Report Signed Patient: Kiki Brown# : [id number] : 1985Acct:[id number] Age/Sex: 40 / FADM Date: 09/14/25 Loc: HO.US Attending Dr: Harmony Sheldon CNM Ordering Physician: Harmony Sheldon CNM Date of Service: 09/14/25 Procedure(s): US pelvic and transvaginal Accession Number(s): [id number] cc: Jairo Bingham MD; Harmony Sheldon CNM Reason for Exam: R10.2 - Pelvic and perineal pain EXAMINATION: US PELVIS TRANSABDOMINAL AND TRANSVAGINAL HISTORY: R10.2 - Pelvic and perineal pain COMPARISON: Comparison is made with the prior examination dated 08/09/2025. TECHNIQUE: Transabdominal and endovaginal real-time 2D patricia-scale ultrasound was performed. FINDINGS: Uterus: The uterus is normal in size, measuring 8.5 x 5.5 x 6.0 cm. Myometrium has a normal echotexture. No fibroids are identified. Endometrium: The endometrial stripe measures 9 mm in thickness. Right ovary: The right ovary measures 2.5 x 1.9 x 2.3 cm. The right ovary is normal in size and echotexture. There is a 10 mm exophytic versus paraovarian cyst. Left ovary: The left ovary measures 3.5 x 2.1 x 4.2 cm. The left ovary is normal in size and echotexture. Pelvic fluid: There is a small amount of free fluid in the cul-de-sac.. US/US pelvic and transvaginal IMPRESSION: 10 mm right-sided exophytic cyst versus paraovarian cyst. Otherwise unremarkable pelvic ultrasound. Electronically signed by: Aleks Berman MD 09/14/2025 02:11 PM EST Dictated By: Aleks Berman MD Signed By: <Electronically signed by Aleks Berman MD in OV> 09/14/25 1411 DD/ 1345 TD/TT: 09/14/25 1356 Poolroom/Poolhall Manager: us [facility] External Provider IMG US PROCEDURES Final Result * BI US Breast Limited Right (09/05/2025 1:05 PM EST) Anatomical Region Laterality Modality Breast Right Ultrasound 09/05/2025 1:05 PM EST Narrative 09/05/2025 3:31 PM EST [facility] [address] [place] [address] Ultrasound Report Signed Patient: Nisha Brown MR# : [id number] : 1985 Acct:[id number] Age/Sex: 40 / F ADM Date: 09/05/25 Loc: HO.MAMMO Attending Dr: Jairo Bingham MD Ordering Physician: Harmony Sheldon CNM Date of Service: 09/05/25 Procedure(s): US Breast RT Limited Mamm Only Accession Number(s): [id number] cc: Jairo Bingham MD; Harmony Sheldon CNM Reason for Exam: N64.4 - Mastodynia EXAMINATION(S): 1. MM DIAGNOSTIC DIGITAL BREAST TOMOSYNTHESIS, BILATERAL 2. TARGETED ULTRASOUND OF THE RIGHT BREAST CLINICAL INFORMATION: -According to requisition: Right breast mastodynia at 1:00 2 o'clock position. -According to patient, the focal pain is located at the chronic known lump in the right breast. - Ultrasound-guided right breast biopsy on October 24, 2020 for solid mass at 1 o'clock position 6 cm from the nipple (butterfly shape Hydromark clip placement). Pathology results showed fibroadenoma. -Stereotactic needle core biopsy of left breast calcifications at 3 o'clock position (top hat shape clip placed) on October 14, 2020. Pathology showed benign breast tissue with fibrocystic changes and calcifications. -Ultrasound-guided needle core biopsy of the left breast on August 27, 2018 (Hydromark open coil shape clip). Pathology showed fragments of fibroadenoma. COMPARISON: Comparison made to multiple prior mammograms, most recent January 05, 2025, and most remote August 23, 2018. Prior right breast ultrasound on October 12, 2020. TECHNIQUE: Digital breast tomosynthesis is performed in both the mediolateral oblique and craniocaudal views along with computer-aided detection (CAD). Synthesized 2D images are generated from the tomosynthesis. A round skin BB marker was placed at the location of the focal pain over the chronic lump in the right breast. FINDINGS: BREAST COMPOSITION: The breasts are heterogeneously dense, which may obscure small masses. RIGHT BREAST: Tissue marker from previous needle core biopsies associated with biopsy-proven fibroadenoma. No significant masses, suspicious calcifications or other abnormalities are seen. In particular, no suspicious mammographic findings adjacent to the skin BB marker placed in the medial breast. Targeted ultrasound of the right breast was performed at the location of the focal pain. The survey shows a 2.8 x 1.6 x 2.8 cm hypoechoic solid mass at 1 o'clock position at 6 cm from the nipple. Prior measurements of 2.2 x 0.9 x 1.3 cm on October 12, 2020. Minimal peripheral vascularity demonstrated with color Doppler evaluation. LEFT BREAST: Two tissue markers from previous needle core biopsies. No significant masses, suspicious calcifications or other abnormalities are seen. US/US Breast RT Limited Mamm Only IMPRESSION: RIGHT BREAST: Focal pain appears to be associated with the biopsy-proven fibroadenoma at 1 o'clock position 6 cm from the nipple. This fibroadenoma has mildly increased in size from 2020, but remains with benign mammographic and sonographic features. Benign, no mammographic evidence of malignancy. However, given the focal pain and slow interval increase in size, recommend surgical consult. Otherwise, normal interval follow-up is recommended in 12 months. LEFT BREAST: Benign, no mammographic evidence of malignancy. Normal interval follow-up is recommended in 12 months. ASSESSMENT: BI-RADS: Category 2: Benign RECOMMENDATION: Surgical Consult Results were provided to the patient at time of visit by the technologist. Electronically signed by: Giovanny Lockhart MD 09/05/2025 03:28 PM [facility] Dictated By: Giovanny Lockhart MD Signed By: <Electronically signed by Giovanny Lockhart MD in OV> 09/05/25 1528 DD/ 1305 TD/TT: 09/05/25 1323 Poolroom/Poolhall Manager: Procedure Note Donotuseinterpreter, Image - 09/05/2025 [facility] [address] [place], [place] [address] Ultrasound Report Signed Patient: Kiki Brown# : [id number] : 1985Acct:[id number] Age/Sex: 40 / FADM Date: 09/05/25 Loc: HO.MAMMO Attending Dr: Jairo Bingham MD Ordering Physician: Harmony Sheldon CNM Date of Service: 09/05/25 Procedure(s): US Breast RT Limited Mamm Only Accession Number(s): [id number] cc: Jairo Bingham MD; Harmony Sheldon CNM Reason for Exam: N64.4 - Mastodynia EXAMINATION(S): 1. MM DIAGNOSTIC DIGITAL BREAST TOMOSYNTHESIS, BILATERAL 2. TARGETED ULTRASOUND OF THE RIGHT BREAST CLINICAL INFORMATION: -According to requisition: Right breast mastodynia at 1:00 2 o'clock position. -According to patient, the focal pain is located at the chronic known lump in the right breast. - Ultrasound-guided right breast biopsy on October 24, 2020 for solid mass at 1 o'clock position 6 cm from the nipple (butterfly shape Hydromark clip placement). Pathology results showed fibroadenoma. -Stereotactic needle core biopsy of left breast calcifications at 3 o'clock position (top hat shape clip placed) on October 14, 2020. Pathology showed benign breast tissue with fibrocystic changes and calcifications. -Ultrasound-guided needle core biopsy of the left breast on August 27, 2018 (Hydromark open coil shape clip). Pathology showed fragments of fibroadenoma. COMPARISON: Comparison made to multiple prior mammograms, most recent January 05, 2025, and most remote August 23, 2018. Prior right breast ultrasound on October 12, 2020. TECHNIQUE: Digital breast tomosynthesis is performed in both the mediolateral oblique and craniocaudal views along with computer-aided detection (CAD). Synthesized 2D images are generated from the tomosynthesis. A round skin BB marker was placed at the location of the focal pain over the chronic lump in the right breast. FINDINGS: BREAST COMPOSITION: The breasts are heterogeneously dense, which may obscure small masses. RIGHT BREAST: Tissue marker from previous needle core biopsies associated with biopsy-proven fibroadenoma. No significant masses, suspicious calcifications or other abnormalities are seen. In particular, no suspicious mammographic findings adjacent to the skin BB marker placed in the medial breast. Targeted ultrasound of the right breast was performed at the location of the focal pain. The survey shows a 2.8 x 1.6 x 2.8 cm hypoechoic solid mass at 1 o'clock position at 6 cm from the nipple. Prior measurements of 2.2 x 0.9 x 1.3 cm on October 12, 2020. Minimal peripheral vascularity demonstrated with color Doppler evaluation. LEFT BREAST: Two tissue markers from previous needle core biopsies. No significant masses, suspicious calcifications or other abnormalities are seen. US/US Breast RT Limited Mamm Only IMPRESSION: RIGHT BREAST: Focal pain appears to be associated with the biopsy-proven fibroadenoma at 1 o'clock position 6 cm from the nipple. This fibroadenoma has mildly increased in size from 2020, but remains with benign mammographic and sonographic features. Benign, no mammographic evidence of malignancy. However, given the focal pain and slow interval increase in size, recommend surgical consult. Otherwise, normal interval follow-up is recommended in 12 months. LEFT BREAST: Benign, no mammographic evidence of malignancy. Normal interval follow-up is recommended in 12 months. ASSESSMENT: BI-RADS: Category 2: Benign RECOMMENDATION: Surgical Consult Results were provided to the patient at time of visit by the technologist. Electronically signed by: Giovanny Lockhart MD 09/05/2025 03:28 PM [facility] Dictated By: Giovanny Lockhart MD Signed By: <Electronically signed by Giovanny Lockhart MD in OV> 09/05/25 1528 DD/ 1305 TD/TT: 09/05/25 1323 Poolroom/Poolhall Manager: us [facility] External Provider IMG US PROCEDURES Final Result * BI Mammogram Diagnostic Tomosynthesis Bilateral (09/05/2025 12:30 PM EST) Anatomical Region Laterality Modality Breast Bilateral Mammography 09/05/2025 12:3 0 PM EST Narrative 09/05/2025 3:31 PM EST [address] [place] [address] Mammography Report Signed Patient: Nisha Brown MR# : [id number] : 1985 Acct:[id number] Age/Sex: 40 / F ADM Date: 09/05/25 Loc: HO.MAMMO Attending Dr: Jairo Bingham MD Ordering Physician: Harmony Sheldon CNM Results: 2Beni gn Date of Service: 09/05/25 Follow Up: Surgical Consult Procedure(s): MM tomosynthesis diagnostic BI Accession Number(s): [id number] cc: Jairo Bingham MD; Harmony Sheldon CNM Reason For Exam: Z12.31 - Encounter for screening mammogram for malignant neoplasm of breast EXAMINATION(S): 1. MM DIAGNOSTIC DIGITAL BREAST TOMOSYNTHESIS, BILATERAL 2. TARGETED ULTRASOUND OF THE RIGHT BREAST CLINICAL INFORMATION: -According to requisition: Right breast mastodynia at 1:00 2 o'clock position. -According to patient, the focal pain is located at the chronic known lump in the right breast. - Ultrasound-guided right breast biopsy on October 24, 2020 for solid mass at 1 o'clock position 6 cm from the nipple (butterfly shape Hydromark clip placement). Pathology results showed fibroadenoma. -Stereotactic needle core biopsy of left breast calcifications at 3 o'clock position (top hat shape clip placed) on October 14, 2020. Pathology showed benign breast tissue with fibrocystic changes and calcifications. -Ultrasound-guided needle core biopsy of the left breast on August 27, 2018 (Hydromark open coil shape clip). Pathology showed fragments of fibroadenoma. COMPARISON: Comparison made to multiple prior mammograms, most recent January 05, 2025, and most remote August 23, 2018. Prior right breast ultrasound on October 12, 2020. TECHNIQUE: Digital breast tomosynthesis is performed in both the mediolateral oblique and craniocaudal views along with computer-aided detection (CAD). Synthesized 2D images are generated from the tomosynthesis. A round skin BB marker was placed at the location of the focal pain over the chronic lump in the right breast. FINDINGS: BREAST COMPOSITION: The breasts are heterogeneously dense, which may obscure small masses. RIGHT BREAST: Tissue marker from previous needle core biopsies associated with biopsy-proven fibroadenoma. No significant masses, suspicious calcifications or other abnormalities are seen. In particular, no suspicious mammographic findings adjacent to the skin BB marker placed in the medial breast. Targeted ultrasound of the right breast was performed at the location of the focal pain. The survey shows a 2.8 x 1.6 x 2.8 cm hypoechoic solid mass at 1 o'clock position at 6 cm from the nipple. Prior measurements of 2.2 x 0.9 x 1.3 cm on October 12, 2020. Minimal peripheral vascularity demonstrated with color Doppler evaluation. LEFT BREAST: Two tissue markers from previous needle core biopsies. No significant masses, suspicious calcifications or other abnormalities are seen. MM/MM tomosynthesis diagnostic BI IMPRESSION: RIGHT BREAST: Focal pain appears to be associated with the biopsy-proven fibroadenoma at 1 o'clock position 6 cm from the nipple. This fibroadenoma has mildly increased in size from 2020, but remains with benign mammographic and sonographic features. Benign, no mammographic evidence of malignancy. However, given the focal pain and slow interval increase in size, recommend surgical consult. Otherwise, normal interval follow-up is recommended in 12 months. LEFT BREAST: Benign, no mammographic evidence of malignancy. Normal interval follow-up is recommended in 12 months. ASSESSMENT: BI-RADS: Category 2: Benign RECOMMENDATION: Surgical Consult Results were provided to the patient at time of visit by the technologist. Electronically signed by: Giovanny Lockhart MD 09/05/2025 03:28 PM [facility] Dictated By: Giovanny Lockhart MD Signed By: <Electronically signed by Giovanny Lockhart MD in OV> 09/05/25 1528 DD/ 1230 TD/TT: 09/05/25 1249 Poolroom/Poolhall Manager: Procedure Note Donotuseinterpreter, Image - 09/05/2025 [facility] [address] [place] [address] Mammography Report Signed Patient: Kiki Brown# : [id number] : 1985Acct:[id number] Age/Sex: 40 / FADM Date: 09/05/25 Loc: HO.MAMMO Attending Dr: Jairo Bingham MD Ordering Physician: Harmony SheldonMResults: 2Beni gn Date of Service: 09/05/25Follow Up: Surgical Consult Procedure(s): MM tomosynthesis diagnostic BI Accession Number(s): [id number] cc: Jairo Bingham MD; Harmony Sheldon CNM Reason For Exam: Z12.31 - Encounter for screening mammogram for malignantneoplasm of breast EXAMINATION(S): 1. MM DIAGNOSTIC DIGITAL BREAST TOMOSYNTHESIS, BILATERAL 2. TARGETED ULTRASOUND OF THE RIGHT BREAST CLINICAL INFORMATION: -According to requisition: Right breast mastodynia at 1:00 2 o'clock position. -According to patient, the focal pain is located at the chronic known lump in the right breast. - Ultrasound-guided right breast biopsy on October 24, 2020 for solid mass at 1 o'clock position 6 cm from the nipple (butterfly shape Hydromark clip placement). Pathology results showed fibroadenoma. -Stereotactic needle core biopsy of left breast calcifications at 3 o'clock position (top hat shape clip placed) on October 14, 2020. Pathology showed benign breast tissue with fibrocystic changes and calcifications. -Ultrasound-guided needle core biopsy of the left breast on August 27, 2018 (Hydromark open coil shape clip). Pathology showed fragments of fibroadenoma. COMPARISON: Comparison made to multiple prior mammograms, most recent January 05, 2025, and most remote August 23, 2018. Prior right breast ultrasound on October 12, 2020. TECHNIQUE: Digital breast tomosynthesis is performed in both the mediolateral oblique and craniocaudal views along with computer-aided detection (CAD). Synthesized 2D images are generated from the tomosynthesis. A round skin BB marker was placed at the location of the focal pain over the chronic lump in the right breast. FINDINGS: BREAST COMPOSITION: The breasts are heterogeneously dense, which may obscure small masses. RIGHT BREAST: Tissue marker from previous needle core biopsies associated with biopsy-proven fibroadenoma. No significant masses, suspicious calcifications or other abnormalities are seen. In particular, no suspicious mammographic findings adjacent to the skin BB marker placed in the medial breast. Targeted ultrasound of the right breast was performed at the location of the focal pain. The survey shows a 2.8 x 1.6 x 2.8 cm hypoechoic solid mass at 1 o'clock position at 6 cm from the nipple. Prior measurements of 2.2 x 0.9 x 1.3 cm on October 12, 2020. Minimal peripheral vascularity demonstrated with color Doppler evaluation. LEFT BREAST: Two tissue markers from previous needle core biopsies. No significant masses, suspicious calcifications or other abnormalities are seen. MM/MM tomosynthesis diagnostic BI IMPRESSION: RIGHT BREAST: Focal pain appears to be associated with the biopsy-proven fibroadenoma at 1 o'clock position 6 cm from the nipple. This fibroadenoma has mildly increased in size from 2020, but remains with benign mammographic and sonographic features. Benign, no mammographic evidence of malignancy. However, given the focal pain and slow interval increase in size, recommend surgical consult. Otherwise, normal interval follow-up is recommended in 12 months. LEFT BREAST: Benign, no mammographic evidence of malignancy. Normal interval follow-up is recommended in 12 months. ASSESSMENT: BI-RADS: Category 2: Benign RECOMMENDATION: Surgical Consult Results were provided to the patient at time of visit by the technologist. Electronically signed by: Giovanny Lockhart MD 09/05/2025 03:28 PM [facility] Dictated By: Giovanny Lockhart MD Signed By: <Electronically signed by Giovanny Lockhart MD in OV> 09/05/25 1528 DD/ 1230 TD/TT: 09/05/25 1249 Poolroom/Poolhall Manager: [facility] External Provider IMG BI PROCEDURES Final Result * Drug Monitoring, Phosphatidylethanol (PEth), Blood (08/25/2025 12:27 PM EDT) Phosphatidylethanol, Blood NEGATIVE [facility] Comment:CUTOFF 20 NG/ML PEth 16:0/18:2 (PLPEth) NEGATIVE [facility] Comment:CUTOFF 20 NG/ML PEth Comments SEE NOTE [facility] Comment:NOTES AND COMMENTSTh is drug testing is for medical treatment only. Analysiswas performed as non-forensic testing and these resultsshould be used only by healthcare providers to renderdiagnosis or treatment, or to monitor progress of medicalconditions.LDT Notes:Confirmation tests were developed and their analyticalperformance characteristics have been determined by [employer]. It has not been cleared or approved by the FDA.This assay has been validated pursuant to the CLIAregulations and is used for clinical purposes.Healthcare Providers needing Interpretation assistance,please contact us at [phone] ( ) M-F,8am to 10pm ESTPERFORMING SITE:[facility]/[address] [address] Chief Informatics Officer: PATRICKW. BRIANA MD,PHD, CLIA: [id number] 08/25/2025 12:2 7 PM EDT 08/25/2025 12:32 PM EDT us Generic External Data Provider LAB BLOOD ORDERAB LES Final Result [facility] [address] [place] [phone] * (ABNORMAL) Hepatic Function Panel (08/25/2025 12:27 PM EDT) Bilirubin, Total 0.4 0.0 - 1.0 mg/dL [facility] Bilirubin, Direct 0.2 0.0 - 0.5 mg/dL [facility] Aspartate Amino Transferase 49(H) 5 - 31 U/L [facility] Alanine Aminotransferase 72(H) 0 - 31 U/L [facility] Total Protein 7.5 6.5 - 8.0 g/dL [facility] Albumin Level 4.2 3.5 - 5.0 g/dL [facility] Alkaline Phosphatase 83 39 - 117 U/L [facility] 08/25/2025 12:2 7 PM EDT 08/25/2025 12:32 PM EDT us Generic External Data Provider LAB BLOOD ORDERAB LES Final Result Performing Organization Address City/State/[facility] Co de Phone Number [facility] [address] [place] [phone] * MR Abdomen w/ and w/o Contrast (08/11/2025 2:29 PM EDT) Anatomical Region Laterality Modality Abdomen Magnetic Resonan ce 08/11/2025 2:29 PM EDT Narrative 08/11/2025 2:30 PM EDT [address] [address] Magnetic Resonance Report Signed Patient: Nisha Brown MR# : [id number] : 1985 Acct:[id number] Age/Sex: 40 / F ADM Date: 08/10/25 Loc: HO.MRI Attending Dr: Digna Torres MD Ordering Physician: Digna Torres MD Date of Service: 08/10/25 Procedure(s): MR abdomen wo/w con Accession Number(s): [id number] cc: Jairo Bingham MD; Digna Torres MD [...] OV> 08/11/25 1430 DD/ 142 TD/TT: 08/11/251428 Poolroom/Poolhall Manager: Procedure Note Donotuseinterpreter, Image - 08/11/2025 [place] [address] Magnetic Resonance Report Signed Patient: Kiki Brown# : [id number] : 1985Acct:[id number] Age/Sex: 40 / FADM Date: 08/10/25 Loc: HO.MRI Attending Dr: Digna Torres MD Ordering Physician: Digna Torres MD Date of Service: 08/10/25 Procedure(s): MR abdomen wo/w con Accession Number(s): [id number] cc: Jairo Bingham MD; Digna Torres MD [...] OV> 08/11/25 1430 DD/ 28 TD/TT: 08/11/251428 Poolroom/Poolhall Manager: [facility] External Provider IMG MRI PROCEDURES Final Result * (ABNORMAL) Lipid Panel with Reflex to Direct LDL (07/18/2025 8:26 AM EDT) Triglycerides 90 <150 mg/dL [facility] Comment:Desirable Triglyceri de: less than 150 mg/dLBorderline High Triglyceride 150-199 mg/dLHigh Triglyceride: 200-499 mg/dLVery High Triglyceride: greater than or equal to 5OO mg/dL Cholesterol 136 <200 mg/dL [facility] Comment:Desirable Cholestero l: less than 200 mg/dLBorderline High Cholesterol: 200-239 mg/dLHigh Cholesterol: greater than 239 mg/dL LDL Cholesterol Calculated 83 <100 mg/dL [facility] Comment:Desirable LDL: less than 100 mg/dLNear Optimal/Above Optimal LDL: 110- 129 mg/dLBorderline High LDL: 130-159 mg/dLHigh LDL: 160-189 mg/dLVery High LDL: greater than or equal to 190 mg/dL HDL Cholesterol 35(L) >40 mg/dL [facility] Comment:Desirable HDL: great er than 40 mg/dL Note: This HDL assay may give artificially low results in patients with liver disease. 07/18/2025 8:2 6 AM EDT 07/18/2025 8:26 AM EDT us Generic External Data Provider LAB BLOOD ORDERAB LES Final Result [facility] [address] [place] [address] [phone] * (ABNORMAL) Comprehensive Metabolic Panel, Fasting (06/29/2025 10:55 AM EDT) Sodium 143 135 - 145 mmol/L [facility] Potassium 4.1 3.3 - 5.1 mmol/L [facility] Chloride 109(H) 96 - 108 mmol/L [facility] Carbon Dioxide 25 22 - 29 mmol/L [facility] Anion Gap 13 12 - 20 [facility] Urea Nitrogen (BUN) 10 9 - 16 mg/dL [facility] Creatinine, Serum 0.73 0.5 - 1.4 mg/dL [facility] Estimated Glomerular Filt Rate >60 [facility] Comment:Chronic Kidney Disea se: Estimated GFR < 60 mL/min/1.11v1Hjnchr Kidney Disease: Estimated GFR < 15 mL/min/1.73m2 Glucose Fasting 79 60 - 99 mg/dL [facility] Calcium 8.9 8.4 - 10.2 mg/dL [facility] Bilirubin, Total 0.5 0.0 - 1.0 mg/dL [facility] Aspartate Amino Transferase 65(H) 5 - 31 U/L [facility] Alanine Aminotransferase 84(H) 0 - 31 U/L [facility] Total Protein 7.3 6.5 - 8.0 g/dL [facility] Albumin Level 4.1 3.5 - 5.0 g/dL [facility] Alkaline Phosphatase 77 39 - 117 U/L [facility] 06/29/2025 10:5 5 AM EDT 06/29/2025 10:55 AM EDT us Generic External Data Provider LAB BLOOD ORDERAB LES Final Result Performing Organization Address [facility]/ZIP Co de Phone Number [facility] [address] [place] [phone] * Vitamin B12 (Cobalamin) and Folate Panel, Serum (06/29/2025 10:55 AM EDT) Vitamin B12 473 200 - 900 pg/mL [facility] Comment:NORMAL 200-900 PG/ML INDETERMINATE 160-199 PG/ML DEFICIENT < 160 PG/ML Folate 9.3 > or = 4.0 ng/mL [facility] Comment:Reference Values:> o r = [...] Final Result Performing Organization Address [facility] Co de Phone Number [facility] [address] [place] [phone] * TSH with Reflex to Free T4 (06/29/2025 10:55 AM EDT) TSH reflex Free T4 1.34 0.32 - 4.0 uIU/mL [facility] 06/29/2025 10:5 5 AM EDT 06/29/2025 10:55 AM EDT us Generic External Data Provider LAB BLOOD ORDERAB LES Final Result Performing Organization Address [facility] Co de Phone Number [facility] [address] [place] [phone] * Lyme Disease Ab with Reflex to Blot (IgG, IgM) (06/29/2025 10:55 AM EDT) Pathologist [facility] Lyme Antibody Screen <0.90 index [facility] Comment:Index Interpretation ----- < 0.90 [...] when erythemamigrans is apparent.THIS TEST WAS PERFORMED AT:[address] [place] [id number] MCELROY MD [facility] Blot [facility] 06/29/2025 10:5 5 AM EDT 06/29/2025 10:55 AM EDT us Generic External Data Provider LAB BLOOD ORDERAB LES Final Result [facility] [address] [place] [phone] * CBC auto differential (06/29/2025 10:55 AM EDT) [facility] White Blood Count 7.7 4.8 - 10.8 X10*3/uL [facility] Red Blood Count 4.60 4.20 - 5.50 X10*6/uL [facility] Hemoglobin 13.9 12.0 - 16.0 g/dl [facility] Hematocrit 41.4 37.0 - 47.0 % [facility] Mean Corpuscular Volume 90.0 80.0 - 98.0 fL [facility] Mean Corpuscular Hemoglobin 30.2 27.0 - 33.0 pg [facility] Mean Corpuscular HGB Conc 33.6 31.0 - 35.0 g/dl [facility] Red Cell Distribution Width 12.4 11.0 - 16.0 % [facility] Platelet Count 298 160 - 400 X10*3/uL [facility] Mean Platelet Volume 10.3 9.4 - 12.3 fL [facility] Neutrophils Percent Auto 67.2 45 - 73 % [facility] Imm Gran Pct Auto 0.3 0.0 - 0.4 % [facility] Lymphocytes Percent Auto 24.9 20 - 40 % [facility] Monocytes Percent Auto 6.6 2 - 11 % [facility] Eosinophils Percent Auto 0.5 0 - 4 % [facility] Basophils Percent Auto 0.5 0 - 2 % [facility] NRBC Pct Auto 0.0 0.0 - 0.2 /100WBC [facility] Neutrophils Absolute Auto 5.2 2.0 - 8.3 x10*3/uL [facility] Imm Gran Abs Auto 0.02 0.00 - 0.03 X10*3/uL [facility] Lymphocytes Absolute Auto 1.9 1.2 - 4.9 X10*3/uL [facility] Monocytes Absolute Auto 0.5 0.1 - 1.2 X10*3/uL [facility] Eosinophils Absolute Auto 0.0 0.0 - 0.4 X10*3/uL [facility] Basophils Absolute Auto 0.0 0.0 - 0.2 X10*3/uL [facility] NRBC Abs Auto 0.000 0.0 - 0.012 X10*3/uL [facility] 06/29/2025 10:5 5 AM EDT 06/29/2025 10:55 AM EDT us Generic External Data Provider LAB BLOOD ORDERAB LES Final Result [facility] [address] [place] [phone] * Methylmalonic Acid (06/29/2025 10:55 AM EDT) Methylmalonic Acid 141 55 - 335 nmol/L [facility] Comment: Serum methylmalonic acid (MMA) [...] outcomes,such as neural tube defects and intrauterine growthrestriction.[employer] utilized Multi-Modal Decomposition(MMD) analysis to establish first and second trimester-specific MMA reference intervals in , as givenbelow:MMA, First trimester (<13 wks gestation): 58-167 nmol/LMMA, Second trimester (13-23 wks gestation):63-241 nmol/LThis test was developed and its analytical performancecharacteristics have been determined by [employer]. It has not been cleared or approved by theFDA. This assay has been validated pursuant to the CLIAregulations and is used for clinical purposes.THIS TEST WAS PERFORMED AT:[facility] [place] [address]WDJUNDNGINETTE WARREN MD,PHD 06/29/2025 10:5 5 AM EDT 06/29/2025 10:55 AM EDT us Generic External Data Provider LAB BLOOD ORDERAB LES Final Result [facility] [address], [place] [phone] * (ABNORMAL) Iron And Total Iron Binding Capacity (06/29/2025 10:55 AM EDT) Iron 90 30 - 160 mcg/dL [facility] Total Iron Binding Capacity 215(L) 228 - 428 mcg/dL [facility] Percent Iron Saturation 42 15 - 50 % [facility] Unsaturated Iron Binding 125 ug/dL [facility] 06/29/2025 10:5 5 AM EDT 06/29/2025 10:55 AM EDT us Generic External Data Provider LAB BLOOD ORDERAB LES Final Result Performing Organization Address [facility]/ZIP Co de Phone Number [facility] [address] [place] [phone] * Sed Rate by Modified Altagraciaren (06/29/2025 10:55 AM EDT) Erythrocyte Sedimentation Rate 18 0 - 20 MM/HR [facility] Comment:Patients with polycy themia and many hemoglobin abnormalitiesmay have depressed sed rates whereas patients with anemiamay have elevated sed rates. 06/29/2025 10:5 5 AM EDT 06/29/2025 10:55 AM EDT us Generic External Data Provider LAB BLOOD ORDERAB LES Final Result Performing Organization Address [facility] Co de Phone Number [facility] [address] [place] [phone] * (ABNORMAL) C-reactive Protein (06/29/2025 10:55 AM EDT) C Reactive Protein 1.98(H) < or = 0.50 mg/dL [facility] 06/29/2025 10:5 5 AM EDT 06/29/2025 10:55 AM EDT us Generic External Data Provider LAB BLOOD ORDERAB LES Final Result Performing Organization Address [facility] Co de Phone Number [facility] [address] [place] [phone] * (ABNORMAL) Vitamin B1 (06/29/2025 10:55 AM EDT) Vitamin B1 <6(A) 8 - 30 nmol/L [facility] Comment:Vitamin supplementat ion within 24 hours prior toblood draw may affect the accuracy of the results.This test was developed and its analytical performancecharacteristics have been determined by [employer] [place], [place]. It hasnot been cleared or approved by the U.S. Food and DrugAdministration. This assay has been validated pursuantto the CLIA regulations and is used for clinicalpurposes.THIS TEST WAS PERFORMED AT:[facility] [place] [address]LVKAFXSGINETTE WARREN MD,PHD 06/29/2025 10:5 5 AM EDT 06/29/2025 10:55 AM EDT us Generic External Data Provider LAB BLOOD ORDERAB LES Final Result Performing Organization Address [facility]/ZIP Co de Phone Number [facility] [address] [place] [phone] * Vitamin B6, Plasma (06/29/2025 10:55 AM EDT) Vitamin B6 5.3 2.1 - 21.7 ng/mL [facility] Comment:Vitamin supplementat ion within 24 hours prior toblood draw may affect the accuracy of the results.This test was developed and its analytical performancecharacteristics have been determined by [facility] [facility] [place], [place]. It hasnot been cleared or approved by the U.S. Food and DrugAdministration. This assay has been validated pursuantto the CLIA regulations and is used for clinicalpurposes.THIS TEST WAS PERFORMED AT:[facility] [place] [address]JJKVPTJGINETTE WARREN MD,PHD 06/29/2025 10:5 5 AM EDT 06/29/2025 10:55 AM EDT us Generic External Data Provider LAB BLOOD ORDERAB LES Final Result Performing Organization Address City/[facility]/ZIP Co de Phone Number [facility] [address] [place] [phone] * Magnesium (06/29/2025 10:55 AM EDT) Pathologist [facility] Magnesium 2.2 1.6 - 2.6 mg/dL [facility] 06/29/2025 10:5 5 AM EDT 06/29/2025 10:55 AM EDT Generic External Data Provider LAB BLOOD ORDERAB LES Final Result Performing Organization Address [facility] Co de Phone Number [facility] [address] [place] [phone] * Homocysteine (06/29/2025 10:55 AM EDT) [facility] Homocysteine 6.8 < or = 11.0 umol/L [facility] Comment:Homocysteine is incr eased by functional deficiency offolate or vitamin B12. Testing for methylmalonic aciddifferentiates between these deficiencies. Other causesof increased homocysteine include renal failure, folateantagonists such as methotrexate and phenytoin, andexposure to nitrous oxide.Kendrick Downing, et al., [facility] Med. 1999;131(5):331-9.THIS TEST WAS PERFORMED AT:[facility] [place] [phone] MCELROY MD 06/29/2025 10:5 5 AM EDT 06/29/2025 10:55 AM EDT Generic External Data Provider LAB BLOOD ORDERAB LES Final Result Performing Organization Address [facility] Co de Phone Number [facility] [address] [place] [phone] * Hemoglobin A1c (06/29/2025 10:55 AM EDT) Pathologist [facility] Hemoglobin A1c 5.4 <6.0 % [facility] Comment:Hemoglobin A1C Refer ence Range Adults: 4.8 - 6.0 % Non diabetic: < 6.0 % Goal: < 7.0 %Additional Action Suggested: > 8.0 %Note: Hemoglobin A1c results are invalid for patients with abnormal amounts of HbF. Blood transfusions may impact the HbA1c concentration in the patient sample. Estimated Average Glucose 108 mg/dL [facility] Comment:eAG = Estimated ave rage glucose which is %A1C expressed asaverage glucose, using the formula of the R9Z-BfszcseCkrfafj Glucose study (ADAG), Diabetes Care, Vol.31,#8,2007 06/29/2025 10:5 5 AM EDT 06/29/2025 10:55 AM EDT Generic External Data Provider LAB BLOOD ORDERAB LES Final Result Performing Organization Address [facility]/ZIP Co de Phone Number [facility] [address] [place] [phone] * (ABNORMAL) Ferritin (06/29/2025 10:55 AM EDT) Ferritin 500(H) 10 - 250 ng/mL [facility] 06/29/2025 10:5 5 AM EDT 06/29/2025 10:55 AM EDT Generic External Data Provider LAB BLOOD ORDERAB LES Final Result Performing Organization Address [facility]/ZIP Co de Phone Number [facility] [address] [place] [phone] * Hepatitis Panel, General (03/30/2025 9:16 AM EDT) Hepatitis A IgM Nonreactive Nonreactive [facility] Comment:IgM antibodies to PFEIFFER V not detected; does not exclude earlyacute or recovered HAV infection. ~Hepatitis B Surface Antibody REACTIVE Nonreactive [facility] Comment:REACTIVE: > 11.99 mI U/mL Hepatitis B Core Antibody Nonreactive Nonreactive [facility] Hepatitis C Antibody Nonreactive Nonreactive [facility] Comment:Antibodies to HCV no t detected; does not exclude early acuteHCV infection. Hepatitis B Surface Ag Negative Negative [facility] Blood 03/30/2025 9:16 AM EDT 03/30/2025 11:37 AM EDT us Jairo Bingham MD LAB BLOOD ORDERABLES Fin al Result Performing Organization Address [facility]/ZIP Co de Phone Number [facility] [address] [place] [phone] * HIV-1/2 Antigen and Antibodies, Fourth Generation, with Reflexes (03/30/2025 9:16 AM EDT) HIV AB/AG Nonreactive Nonreactive [facility] Comment:HIV-1 p24 Ag and/or HIV-1/HIV-2 Ab not detected.A test result that is nonreactive does not exclude thepossibility of exposure to or infection with HIV-1 and/orHIV-2. Nonreactive results in this assay for individualswith prior exposure to HIV-1 and/or HIV-2 may be due toantigen and antibody levels that are below the limit ofdetection of this assay.[employer] HIV Ag/Ab Combo assay result andsupplemental assay [...] jayne Result - Final Performing Organization Address [facility]/ZIP Co de Phone Number [facility] [address] [place] [phone] * HPV E6/E7 RFLX XENIA 16 18/45 (02/12/2022 3:42 PM EDT) HPV mRNA E6/E7 rflx Not Detected Not Detected [facility] Comment: Methodology: Hand Assembler-Mediated Amplification This assay detects E6/E7 viral messenger RNA (mRNA) from 14 high-risk HPV types (16,18,31,33,35,39,45,51,52,56,58,59,66,68). The analytical performance characteristics of this assay have been determined by [employer]. The modifications have not been cleared or approved by the FDA. This assay has been validated pursuant to the CLIA regulations and is used for clinical purposes. For additional information, please refer to http://education.[employer]/faq/PSQ252k2 (This link if provided for information/ educational purposes only.) THIS TEST WAS PERFORMED AT: [employer] [address] [place] [address] [address],[place] [address] TREY MCELROY MD 02/12/2022 3:42 PM EDT [facility] HISTORICAL/NON ORDERABLE LABS Fi nal Result [facility] [address] * Hm Pap Smear (02/12/2022) Historical Provider HEALTH MAINTENANCE Final Result from Last 3 Months or Most Recently Relevant to Health Maintenance Insurance [facility] C3 Care Teams Wood Tile Installation Helper Relationship Specialty Start Date End Date Jairo Bingham MD [address] [place] [phone] PCP - General Family Medicine 08/16/18 Teressa Winn Turret Press OperatorWelt Treater 07/19/25
--- OUTSIDE RECORDS SUMMARY | 2025-09-25 07:58 | XMS_ITS | Encounter Summary ---
Author Organization [employer] Address [address] [facility] [address]t [place] [address] Care Team Providers Care Process Engineering Manager Name Role Phone Yolanda Aaron MD Primary Care Provider + Cris Cabrera RN Unavailable Encounter Details Date Type Department Care Team (Late st Contact Info) Description 12/24/2022 Orders Only [facility] [address] [place], [place] [phone] Yolanda Aaron MD [address] [place], [place] [phone] Social History Tobacco Use Types Packs/Day Years [...] AM EST Office Visit [facility] [address] [place] [phone] Yolanda Aaron MD [address] [place] [phone] documented as of this encounter Visit Diagnoses Not on filedocumented in this encounter Additional Health Concerns Assessment Noted Time PHQ-9 Depression Total Score: 11 023 11:41 AM EST documented as of this encounter Care Teams Process Engineering Manager Relationship Specialty Start Date End Date Yolanda Aaron MD [address] [place] [phone] PCP - General Family Medicine 08/16/18 Cris Cabrera RN [address] [place] [phone] Commissions SpecialistDegreaser Operator 04/25/24 08/03/24 Teressa Winn Commissions SpecialistDegreaser Operator 07/19/25 documented as of this encounter
--- OUTSIDE RECORDS SUMMARY | 2025-09-25 07:58 | XMS_ITS | Encounter Summary ---
Author Organization [employer] Address [address] [facility] [address] [place] [address] Care Team Providers Care Rouge Sifter Name Role Phone Yolanda Aaron MD Primary Care Provider + Cris Cabrera RN Unavailable [phone] Encounter Details Date Type Department Care Team (Late st Contact Info) Description 08/05/2023 Abstract [facility] [address] [place], [place] [phone] Yolanda Aaron MD [address] [place] [address] Social History Tobacco Use Types Packs/Day Years [...] Description 09/29/2025 11:15 AM EST Office Visit [facility] [address] [place] [address] Yolanda Aaron MD [address] [place] [phone] documented as of this encounter Visit Diagnoses Not on filedocumented in this encounter Additional Health Concerns Assessment Noted Time PHQ-9 Depression Total Score: 023 3:33 PM EDT documented as of this encounter Care Teams Rouge Sifter Relationship Specialty Start Date End Date Yolanda Aaron MD [address] [place] [phone] PCP - General Family Medicine 08/16/18 Cris Cabrera RN [address] [place] [phone] Wax Ball MolderTrimming Machine Set Up Operator 04/25/24 08/03/24 Teressa Winn Wax Ball MolderTrimming Machine Set Up Operator 07/19/25 documented as of this encounter
--- OUTSIDE RECORDS SUMMARY | 2025-09-25 07:58 | XMS_ITS | Encounter Summary ---
Author Organization [employer] Address [address] [address] [place] [address] Care Team Providers Care Systems Programmer Name Role Phone Yolanda Aaron MD Primary Care Provider + Encounter Details Date Type Department Care Team (Latest Contact Info) Description 08/10/2025 Results Follow-Up [facility] [address] [place] [address] Yolanda Aaron MD [address] [place] [address] [place] Pelvis Transvaginal Social History Tobacco Use [...] EDT Pelvic ultrasound on 08/09/2025 ordered by terminal worker showed bilateral ovarian cyst, patient is to follow-up with terminal worker. documented in this encounter Plan of Treatment Upcoming Encounters Date Type Department Care Team (Late st Contact Info) Description 09/29/2025 11:15 AM EST Office Visit [facility] [address] [place] [address] Yolanda Aaron MD [address] [place] [address] documented as of this encounter Visit Diagnoses Not on filedocumented in this encounter Additional Health Concerns Assessment Noted Time PHQ-9 Depression Total Score: 22 025 11:10 AM EDT documented as of this encounter Care Teams Systems Programmer Relationship Specialty Start Date End Date Yolanda Aaron MD [address] [place] [address] PCP - General Family Medicine 08/16/18 Teressa Winn Insurance WriterMeal Cooker 07/19/25 documented as of this encounter
--- NOTE | 2025-09-25 08:03 | A.OFFVIS_ITS ---
Intake Visit Reasons: Urinary Incontinence (set)UA+PVR) Intake Note: New patient presents today for initial visit for urinary incontinenece Urology Medication:Vitamin B1 Blood Thinner:None Antibiotic Allergies:None PVR:48ml Clinical Care Coordinator Required: Yes Allergies No Known Allergies Allergy (Verified 09/25/25 08:04) HPI Comments Details: 09/25/2025--The patient is here as a new patient evaluation for urinary incontinence. History of Present Illness The patient is a 40 year old female presenting for a new patient evaluation for urinary incontinence. The patient reports experiencing urinary leakage for over a year, which occurs with laughing and coughing. h/o Obesity-comorbidity. The patient denies urinary frequency during the day, nocturia, or significant urinary urgency. The patient denies problems with recurrent UTIs. I have reviewed chart regarding microbiology noted below. The patient has a history of five pregnancies with five vaginal deliveries and has undergone a tubal ligation. Results- Review - Urinalysis: Leukocytes negative, blood trace. - Urine Culture (08/09/25): Less than 10,000 colonies. - Urine Culture (03/29/25): E. coli, resistant to ampicillin and Bactrim. - Abdominal MRI (08/11/25): Kidneys were normal. - Pelvic Ultrasound (08/2025): 10 mm right exophytic cyst versus a paraovarian cyst noted. Plan 1. Urinary Incontinence - The patient's symptoms of leakage with coughing and laughing are suggestive of stress urinary incontinence. - She denies significant urgency symptoms - UDS will be scheduled to further evaluate bladder function. [facility] Medical History Pelvic inflammatory disease (PID) Well woman exam with routine gynecological exam Breast lump Breast pain Pelvic pain Obesity UTI (urinary tract infection) Encounter for screening examination for sexually transmitted disease Bacterial vaginosis Vaginal itching Fibroadenoma Vaginal discharge Vaginal odor Fracture of orbital floor, blow-out, right, closed Problematic vaginal discharge Mass of right breast Microcalcification of left breast on mammography Abnormal Pap smear of cervix Pulmonary embolism Bilateral pulmonary embolism PE (pulmonary thromboembolism) DVT (deep venous thrombosis) Surgical History Hx of tubal ligation Hx of foot surgery Family History Maternal Aunt Breast cancer, Onset Age: 29 Colon cancer Ovarian cancer Brother Diabetes Sister Diabetes Maternal Aunt Metastasis from esophageal cancer Father Colon cancer Family/Other Colon cancer Ovarian cancer Mother Breast cancer Social History Household Members: Children Housing: Apartment Are you a primary weekend caregiver to a significant other at home: No Do you presently have visiting nurse or other home services: No Alcohol intake: never Patient Tobacco Use Status: Current everyday Tobacco user Tobacco use type: Cigarette service: No Current occupational status: unemployed Gender identity: Female Female Reproductive History Menstrual Age of Menarche: 13 Review of Systems Const All systems reviewed & are unremarkable except as noted in HPI and below Reports no additional complaints Eyes Reports no additional complaints ENT Reports no additional complaints Card Reports no additional complaints Resp Reports no additional complaints GI Reports no additional complaints Reports as per HPI Musc Reports no additional complaints Skin/Breast Reports system reviewed and no additional complaints, except as documented Neuro Reports no additional complaints Psych Reports no additional complaints Endo Reports no additional complaints Bhupendra/Lymph Reports no additional complaints Aller/Immun Reports no additional complaints Physical Exam Const General: cooperative, healthy appearing and no acute distress Nutritional Appearance: overweight Orientation/consciousness: patient oriented x3 HEENT Head: Yes normal to inspection, Yes normocephalic and Yes atraumatic Eyes Conjunctivae: conjunctivae normal Neck Neck: Yes normal visual inspection and Yes trachea midline Chest Chest palpation & inspection: normal inspection of the chest Resp Effort & Inspection: normal respiratory effort GI Inspection: Yes normal to inspection Neuro General: patient oriented x3 Psych Appearance: grossly normal Results Reviewed Results Reviewed: Date of Service: 09/14/25 Procedure(s): US pelvic and transvaginal Accession Number(s): [id number] cc: Yolanda Aaron MD; Harmony Sheldon CNM~ Reason for Exam: R10.2 - Pelvic and perineal pain EXAMINATION: US PELVIS TRANSABDOMINAL AND TRANSVAGINAL HISTORY: R10.2 - Pelvic and perineal pain COMPARISON: Comparison is made with the prior examination dated 08/09/2025. TECHNIQUE: Transabdominal and endovaginal real-time 2D phelan-scale ultrasound was performed. FINDINGS: Uterus: The uterus is normal in size, measuring 8.5 x 5.5 x 6.0 cm. Myometrium has a normal echotexture. No fibroids are identified. Endometrium: The endometrial stripe measures 9 mm in thickness. Right ovary: The right ovary measures 2.5 x 1.9 x 2.3 cm. The right ovary is normal in size and echotexture. There is a 10 mm exophytic versus paraovarian cyst. Left ovary: The left ovary measures 3.5 x 2.1 x 4.2 cm. The left ovary is normal in size and echotexture. Pelvic fluid: There is a small amount of free fluid in the cul-de-sac.. IMPRESSION: 10 mm right-sided exophytic cyst versus paraovarian cyst. Otherwise unremarkable pelvic ultrasound. Date of Service: 08/10/25 Procedure(s): MR abdomen wo/w con Accession Number(s): [id number] cc: Yolanda Aaron MD; Digna Torres MD~ Reason for Exam: Other specified health status, abn findings on u/s, liver CLINICAL HISTORY: Other specified health status, abn findings on u s, liver MR abdomen with and without contrast Comparison: US/SR - US ABDOMEN COMPLETE WITH LIVER ELASTOGRAPHY - 05/10/25 08:[address]/SR - CT ABDOMEN PELVIS WITHOUT IV CONTRAST - 12/05/22 19:12 EST Findings: No signal abnormality in the lung bases. Unremarkable gallbladder. No intrahepatic or extrahepatic biliary ductal dilatation. The liver is normal in size, measuring 16.6 cm in craniocaudal dimension. No lobular contour of the liver capsular other cirrhotic liver morphology. There is loss of signal in the liver on the out of phase images indicating hepatic steatosis with focal fatty sparing at the gallbladder fossa. No abnormal enhancement. The spleen is mildly enlarged, measuring 12.3 cm in craniocaudal dimension. The other solid organs are unremarkable. No bowel wall thickening or dilation. No aneurysm. No lymphadenopathy. No ascites. Mild scoliosis. Hemangioma in L2 measuring 1.3 cm. Increased signal on the T2 weighted images at the superior endplate of L5 at the right aspect, degenerative Impression: Hepatic steatosis. No MR evidence of cirrhosis. Mild splenomegaly. Assessment & Plan Assessment & Plan (1) Urinary incontinence: Code(s): R32 - Unspecified urinary incontinence Category: Medical (2) Stress incontinence: Code(s): N39.3 - Stress incontinence (female) (male) Category: Medical (3) Obesity: Code(s): E66.9 - Obesity, unspecified Category: Medical Plan Plan 1. Urinary Incontinence - The patient's symptoms of leakage with coughing and laughing are suggestive of stress urinary incontinence. - She denies significant urgency symptoms - UDS will be scheduled to further evaluate bladder function. Patient Instructions: The patient had an opportunity to ask questions regarding treatment plan. The patient expressed understanding and agreement with the above treatment plan. The patient is aware they should contact our office by phone for worsening of their current condition or the appearance of new symptoms. Compliance is encouraged with any medications and followup testing that is ordered. It is a privilege to be allowed the opportunity to participate in the urologic care of your patient. If you have any questions or concerns regarding treatment for the above conditions please do not hesitate to contact me. The office telephone contact is [phone]. This note is constructed in part using voice recognition software. While every effort has been made to ensure accuracy drying machine operator errors may have been included. Yours sincerely, Tam Macias MD Scribe Plan - Not visible on output: Patient was informed and verbally consented to the use of an ambient scribe for clinic note documentation during this visit. Coding Level of Care Code New Pt Level 4 (40262) Diagnoses Urinary incontinence R32 Stress incontinence N39.3 Obesity E66.9
== END 2025-09-25 08:42 | disposition home or self-care (01) ==
LOC: HO.HUSH 07:55
PROVIDERS: PCP Internal Medicine; Visit Provider Urology
DX: R32 Unspecified urinary incontinence (principal); N39.3 Stress incontinence (female) (male); E66.9 Obesity, unspecified; Z13.9 Encounter for screening, unspecified
CPT/HCPCS: 99204

== ENCOUNTER → 2025-09-25 07:54 | Outpatient (BNVA) | payer MEDICAID, SELFPAY | PROVIDERS: PCP Internal Medicine; Visit Provider Urology | DX: N39.3 Stress incontinence (female) (male) (principal); E66.9 Obesity, unspecified | CPT/HCPCS: 51798; 81003; 99202 ==

== ENCOUNTER 2025-09-28 15:51 | Outpatient (AMB) | payer MEDICAID, SELFPAY ==
--- NOTE | 2025-09-28 15:59 | MHC.OFFVIS ---
Vital Signs 09/28/25 15:59 Height 5 ft 4 in Intake Visit Reasons: ultrasound follow up Intake Note: here for an u/s follow up. had bleed twice in july and 09/14. upt negative Information Interpreted: non-clinical & clinical Olive Picker: Olive Picker Present (jessica) Accompanied by: Self / Same As Patient Allergies No Known Allergies Allergy (Verified 09/28/25 16:00) Medication List - Last Reconciled 09/28/25 by Shannan Rapp LPN bisacodyl 10 mg (2 x 5 mg) PO DAILY PRN cholecalciferol (vitamin D3) 1,250 mcg PO QWEEK 12 days clindamycin phosphate 2% 1 appful vaginal DAILY diclofenac potassium 50 mg PO BID PRN 30 days doxycycline hyclate 100 mg PO BID 14 days galcanezumab-gnlm (Emgality Pen) 240 mg (2 mL) subcut ONCE 30 days linaclotide (Linzess) 72 mcg PO DAILY meclizine 50 mg PO BID PRN 30 days metronidazole 0.75%(37.5mg/5gram) (Vandazole) 1 appful vaginal DAILY 5 days miconazole nitrate 2% (Monistat 7) 1 appful vaginal BEDTIME 7 days polyethylene glycol 3350 (Miralax) 17 grams PO DAILY PRN 30 days psyllium husk (Reguloid (psyllium husk)) 0.8 grams PO BEDTIME sumatriptan succinate 50 - 100 mg orally at onset of headache, may repeat in 2 hrs PRN; max 2 tabs per day or 4 tabs/week (may take with Tylenol) 30 days thiamine HCl (vitamin B1) 100 mg PO DAILY Is last menstrual period known: Yes Last menstrual period: 09/14/25 Do you need a note to return to daycare/school/sports/work: No HPI Comments Details: Patient is here today for a follow up on a pelvic ultrasound. History of prior PID and complex ovarian cyst. Currently reports dysuria and vaginal discharge. Urine test is negative for blood, nitrates and leukocytes. LMP 07/27 and 09/21/25. [facility] Medical History Pelvic inflammatory disease (PID) Well woman exam with routine gynecological exam Breast lump Breast pain Pelvic pain Obesity UTI (urinary tract infection) Encounter for screening examination for sexually transmitted disease Bacterial vaginosis Vaginal itching Fibroadenoma Vaginal discharge Vaginal odor Fracture of orbital floor, blow-out, right, closed Problematic vaginal discharge Mass of right breast Microcalcification of left breast on mammography Abnormal Pap smear of cervix Pulmonary embolism Bilateral pulmonary embolism PE (pulmonary thromboembolism) DVT (deep venous thrombosis) Surgical History Hx of tubal ligation Hx of foot surgery Family History Maternal Aunt Breast cancer, Onset Age: 29 Colon cancer Ovarian cancer Brother Diabetes Sister Diabetes Maternal Aunt Metastasis from esophageal cancer Father Colon cancer Family/Other Colon cancer Ovarian cancer Mother Breast cancer Social History Household Members: Children Housing: Apartment Are you a primary director of critical care to a significant other at home: No Do you presently have visiting nurse or other home services: No Alcohol intake: never Patient Tobacco Use Status: Current everyday Tobacco user Tobacco use type: Cigarette service: No Current occupational status: unemployed Gender identity: Female Female Reproductive History Menstrual Age of Menarche: 13 Date of last menstrual period: 09/14/25 control method: permanent sterilization Review of Systems Const All systems reviewed & are unremarkable except as noted in HPI and below Physical Exam Const General: cooperative, healthy appearing and no acute distress Orientation/consciousness: patient oriented x3 GI Inspection: Yes normal to inspection Palpation (GI): Soft to palpation and Other GI palpation findings present (Nontender) Rectal Exam - Female: visual inspection normal General: Yes bladder normal to palpation (slightly tender) External Female Exam: normal appearance of the urethra Speculum Exam - Vagina: normal appearance of the vagina, normal palpation and normal vaginal discharge Speculum Exam - Cervix: normal appearance of the cervix and normal palpation Bimanual exam- vagina & uterus: normal bimanual exam, normal palpation, uterine size normal, bladder normal to palpation (slightly tender), normal palpation, uterine shape normal and non-tender Bimanual Exam- Adnexa, other: normal adnexae Neuro General: patient oriented x3 Results AMB Test Urine AMB Test Urine Negative Last Edit by Shannan Rapp LPN on 09/28/25 16:09 AMB Urinalysis Dipstick UR Leukocytes Negative Last Edit by Shannan [place], PET CARE ASSOCIATE on 09/28/25 16:14 UR Nitrite Negative Last Edit by Shannan Tamela, PET CARE ASSOCIATE on 09/28/25 16:14 UR Urobilinogen 1 Last Edit by Shannan Tamela, PET CARE ASSOCIATE on 09/28/25 16:14 UR Protein Negative Last Edit by Shannan [place], PET CARE ASSOCIATE on 09/28/25 16:14 UR Ph 6.0 Last Edit by Shannan [place], PET CARE ASSOCIATE on 09/28/25 16:14 UR Blood Negative Last Edit by Shannan [place], PET CARE ASSOCIATE on 09/28/25 16:14 UR Specific [place] 1.030 Last Edit by Shannan Tamela, PET CARE ASSOCIATE on 09/28/25 16:14 UR Ketone Negative Last Edit by Shannan [place]ela, PET CARE ASSOCIATE on 09/28/25 16:14 UR Bilirubin Negative Last Edit by Shannan Tamela, PET CARE ASSOCIATE on 09/28/25 16:14 UR Glucose Negative Last Edit by Shannan [place], PET CARE ASSOCIATE on 09/28/25 16:14 Results Reviewed Results Reviewed: Laboratory Last Values Urine pH (Clinic) 6.0 09/28/25 16:08 Specific [place] (Clinic) 1.030 09/28/25 16:08 Ur Protein (Clinic) Negative 09/28/25 16:08 Ur Ketones (Clinic) Negative 09/28/25 16:08 Urine Blood (Clinic) Negative 09/28/25 16:08 Urine Nitrite Negative 09/28/25 16:08 Urine Bilirubin (Clinic) Negative 09/28/25 16:08 Urobilinogen (Clinic) 1 09/28/25 16:08 Leukocyte Esterase (Clinic) Negative 09/28/25 16:08 Urine Glucose (Clinic) Negative 09/28/25 16:08 Tst Clinic Negative 09/28/25 16:08 [place] [address] Ultrasound Report Signed Patient: Nisha Brown MR#: [id number] : 1985 Acct:[id number] Age/Sex: 40 / F ADM Date: 09/14/25 Loc: HO.US Attending Dr: Harmony Sheldon [facility] Ordering Physician: Harmony Sheldon CNM Date of Service: 09/14/25 Procedure(s): US pelvic and transvaginal Accession Number(s): [id number] cc: Yolanda Aaron MD; Harmony Sheldon CNM~ Reason for Exam: R10.2 - Pelvic and perineal pain EXAMINATION: US PELVIS TRANSABDOMINAL AND TRANSVAGINAL HISTORY: R10.2 - Pelvic and perineal pain COMPARISON: Comparison is made with the prior examination dated 08/09/2025. TECHNIQUE: Transabdominal and endovaginal real-time 2D phelan-scale ultrasound was performed. FINDINGS: Uterus: The uterus is normal in size, measuring 8.5 x 5.5 x 6.0 cm. Myometrium has a normal echotexture. No fibroids are identified. Endometrium: The endometrial stripe measures 9 mm in thickness. Right ovary: The right ovary measures 2.5 x 1.9 x 2.3 cm. The right ovary is normal in size and echotexture. There is a 10 mm exophytic versus paraovarian cyst. Left ovary: The left ovary measures 3.5 x 2.1 x 4.2 cm. The left ovary is normal in size and echotexture. Pelvic fluid: There is a small amount of free fluid in the cul-de-sac.. US/US pelvic and transvaginal IMPRESSION: 10 mm right-sided exophytic cyst versus paraovarian cyst. Otherwise unremarkable pelvic ultrasound. Electronically signed by: Aleks Berman MD 09/14/2025 02:11 PM [facility] [place] Dictated By: Aleks Berman MD Signed By: <Electronically signed by Aleks Berman MD in OV> 09/14/25 1411 DD/ 1345 TD/TT: 09/14/25 1356 Market Development Manager: Assessment & Plan Assessment & Plan (1) Fibroadenoma of both breasts: Code(s): D24.1 - Benign neoplasm of right breast; D24.2 - Benign neoplasm of left breast Category: Medical Plan: Referral placed for evaluation breast surgery. (2) Breast pain: Code(s): N64.4 - Mastodynia Category: Medical Plan: Referral for breast certain consultation Dr. Mcqueen. The patient expressed understanding and agreement with the plan of care. All of her questions and concerns were addressed to the best of my ability. (3) Dyspareunia in female: Code(s): N94.10 - Unspecified dyspareunia Category: Medical Plan: Follow up with Dr. Pavel Wright. No evidence of UTI today. Continue to hydrate well. The patient expressed understanding and agreement with the plan of care. All of her questions and concerns were addressed to the best of my ability. (4) History of ovarian cyst: Code(s): Z87.42 - Personal history of other diseases of the female genital tract Plan: Discussed: Ultrasound findings- IMPRESSION: 10 mm right-sided exophytic cyst versus paraovarian cyst. Otherwise unremarkable pelvic ultrasound. Advised to call the office if she experiences any right-sided pelvic pain. Prior complex ovarian cyst on the left side is resolved. The patient expressed understanding and agreement with the plan of care. All of her questions and concerns were addressed to the best of my ability. (5) Vaginal discharge: Code(s): N89.8 - Other specified noninflammatory disorders of vagina Plan: BV panel and GC chlamydia obtained. Await results for final plan of care. The patient expressed understanding and agreement with the plan of care. All of her questions and concerns were addressed to the best of my ability. Plan This note is constructed using voice recognition software. While every effort has been made to ensure accuracy, leasing professional errors may have been included. Orders: Orders AMB Urinalysis Dipstick Today N94.89 - Other specified conditions associated with female genital organs and menstrual cycle CT NG by PCR Vag/Cerv Today Z11.3 - Encounter for screening for infections with a predominantly sexual mode of transmission Bacterial Vaginosis Panel Today Z11.3 - Encounter for screening for infections with a predominantly sexual mode of transmission AMB HCG Urine Test Today Z32.02 - Encounter for test, result negative Referrals Breast Surgery Referral D24.1 - Benign neoplasm of right breast, D24.2 - Benign neoplasm of left breast, N64.4 - Mastodynia Coding Level of Care Code Est Pt Level 3 (33920) Diagnoses Fibroadenoma of both breasts D24.1; D24.2 Breast pain N64.4 Dyspareunia in female N94.10 History of ovarian cyst Z87.42 Vaginal discharge N89.8
--- OUTSIDE RECORDS SUMMARY | 2025-09-28 21:58 | XMS_ITS | Encounter Summary ---
Author Organization [employer] Address [address] [facility] [address] [place] [address] Care Team Providers Care Editorial Manager Name Role Phone Yolanda Aaron MD Primary Care Provider + Cris Cabrera RN Unavailable Encounter Details Date Type Department Care Team (Late st Contact Info) Description 12/24/[address] [facility] [address] [place], [place] [phone] Yolanda Aaron MD [address] [place], [place] [phone] Social History Tobacco Use Types Packs/Day Years [...] EST Office Visit [facility] [address] [place] [phone] Yolanda Aaron MD [address] [place] [phone] documented as of this encounter Visit Diagnoses Not on filedocumented in this encounter Additional Health Concerns Assessment Noted Time PHQ-9 Depression Total Score: 11 023 11:41 AM EST documented as of this encounter Care Teams Editorial Manager Relationship Specialty Start Date End Date Yolanda Aaron MD [address] [place] [phone] PCP - General Family Medicine 08/16/18 Cris Cabrera RN [address] [place] [phone] Trimming Machine Set Up OperatorTurret Lathe Tender 04/25/24 08/03/24 Teressa Winn Trimming Machine Set Up OperatorTurret Lathe Tender 07/19/25 documented as of this encounter
--- OUTSIDE RECORDS SUMMARY | 2025-09-28 21:58 | XMS_ITS | Encounter Summary ---
Author Organization [employer] Address [address] [facility] [address] [place] [address] Care Team Providers Care Hog Counter Name Role Phone Yolanda Aaron MD Primary Care Provider + Cris Cabrera RN Unavailable [phone] Encounter Details Date Type Department Care Team (Late st Contact Info) Description 12/01/2022 Abstract [facility] [address] [place], [place] [phone] Yolanda Aaron MD [address] [place], [place] [phone] Social History Tobacco Use Types Packs/Day Years [...] Description 09/29/2025 11:15 AM EST Office Visit [facility] [address] [place] [phone] Yolanda Aaron MD [address] [place] [address] documented as of this encounter Visit Diagnoses Not on filedocumented in this encounter Additional Health Concerns Assessment Noted Time PHQ-9 Depression Total Score: 11 023 11:41 AM EST documented as of this encounter Care Teams Hog Counter Relationship Specialty Start Date End Date Yolanda Aaron MD [address] [place] [phone] PCP - General Family Medicine 08/16/18 Cris Cabrera RN [address] [place] [phone] Senior Software Development EngineerCamouflage Assembler 04/25/24 08/03/24 Teressa Winn Senior Software Development EngineerCamouflage Assembler 07/19/25 documented as of this encounter
--- OUTSIDE RECORDS SUMMARY | 2025-09-28 21:58 | XMS_ITS | Clinical Summary ---
Author Organization [employer] Address [address] [place] [address] Care Team Providers Care Suction Worker Name Role Phone Jairo Bingham MD Primary Care Provider + Allergies No known active allergies Medications * This document contains information received from the source organization and may not represent a complete record from that organization. Calcium Carb-Cholecalci ferol 500-10 MG-MCG tablet Take 1 tablet by mouth in the morning and at bedtime. 2 Active ergocalciferol (Vitamin D2) 1.25 MG (13366 UT) capsule TAKE 1 CAPSULE BY MOUTH [...] steroid injection. Bipolar I disorder with depression (CMS/[facility]) 02/202411/30/2023 Elevated liver enzymes 11/30/2023 Panic [...] referred to AUD program. 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 F yearly with hematology Re consutl [...] is able to initiate care with her [facility] agency prescriber, she will go ahead and do that instead. She should call [facility] and/or consult her PCP with any [...] close fu with mental health provider and women's soccer coach Counseled to cut down etoh use [...] Plan (12/03/2022 11:27 AM EST): FU by [employer]. Pat for PAP and pelvic US Coming [...] Department Care Team Description 09/14/2025 Patient Outreach [facility]IC[facility] [address] [place] [phone] Jairo Bingham MD Pre-visit Planning ((Unable to reach for PVP screening, LVM) to be completed in office ) 08/25/2025 Orders Only GENERIC EXTERNAL DATA DEPARTMENT Provider, Generic External Data 08/10/2025 Results Follow-Up [facility] [address] [place] [phone] Jairo Bingham MD US Pelvis Transvaginal 07/19/2025 Telephone [facility] MED & PEDS [address] [place], [place] [phone] Jairo Bingham MD Care Coordination (ICP Care Plan) 07/18/2025 Orders Only GENERIC EXTERNAL DATA DEPARTMENT Provider, Generic External Data 07/14/2025 3:00 PM EDT Office Visit [address] [address] [place], Kaci, 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 reschedule 06/29/2025 Orders [...] [facility] [address] [place] [address] Jairo Bingham MD [address] [place] [address] Health Maintenance Due Date Last Done Comments [...] PM EST Narrative 09/14/2025 2:14 PM EST [address] [address] Ultrasound Report Signed Patient: Nisha Brown MR# : [id number] : 1985 Acct:[id number] Age/Sex: 40 / F ADM Date: 09/14/25 Loc: HO.US Attending Dr: Harmony Sheldon CNM Ordering Physician: Harmony Sheldon CNM Date of Service: 09/14/25 Procedure(s): US pelvic and transvaginal Accession Number(s): [id number] cc: Jairo Bingham MD; Harmony Sheldon CNM [...] 09/14/25 1411 DD/ 1345 TD/TT: 09/14/25 1356 Gaming Surveillance Observer: Procedure Note Donotuseinterpreter, Image - 09/14/2025 [place] [address] Ultrasound Report Signed Patient: Kiki Brown# : [id number] : 1985Acct:[id number] Age/Sex: 40 / FADM Date: 09/14/25 Loc: HO.US Attending Dr: Harmony Sheldon CNM Ordering Physician: Harmony Sheldon CNM Date of Service: 09/14/25 Procedure(s): US pelvic and transvaginal Accession Number(s): [id number] cc: Jairo Bingham MD; Harmony Sheldon CNM [...] 09/14/25 1411 DD/ 1345 TD/TT: 09/14/25 1356 Gaming Surveillance Observer: us [facility] External Provider IMG US PROCEDURES Final Result * BI US Breast Limited Right (09/05/2025 1:05 PM EST) Anatomical Region Laterality Modality Breast Right Ultrasound 09/05/2025 1:05 PM EST Narrative 09/05/2025 3:31 PM EST [facility] [address] [place] [address] Ultrasound Report Signed Patient: Nisha Brown MR# : [id number] : 1985 Acct:[id number] Age/Sex: 40 / F ADM Date: 09/05/25 Loc: HO.MAMMO Attending Dr: Jairo Bingham MD Ordering Physician: Harmony Sheldon CNM Date of Service: 09/05/25 Procedure(s): US Breast RT Limited Mamm Only Accession Number(s): [id number] cc: Jairo Bingham MD; Harmony Sheldon CNM [...] by: Giovanny Lockhart MD 09/05/2025 03:28 PM [facility] Dictated By: Giovanny Lockhart MD Signed By: <Electronically signed by Giovanny Lockhart MD in OV> 09/05/25 1528 DD/ 1305 TD/TT: 09/05/25 1323 Gaming Surveillance Observer: Procedure Note Donotuseinterpreter, Image - 09/05/2025 [facility] [address] [place], [place] [address] Ultrasound Report Signed Patient: Kiki Brown# : [id number] : 1985Acct:[id number] Age/Sex: 40 / FADM Date: 09/05/25 Loc: HO.MAMMO Attending Dr: Jairo Bingham MD Ordering Physician: Harmony Sheldon CNM Date of Service: 09/05/25 Procedure(s): US Breast RT Limited Mamm Only Accession Number(s): [id number] cc: Jairo Bingham MD; Harmony Sheldon CNM [...] by: Giovanny Lockhart MD 09/05/2025 03:28 PM [facility] Dictated By: Giovanny Lockhart MD Signed By: <Electronically signed by Giovanny Lockhart MD in OV> 09/05/25 1528 DD/ 1305 TD/TT: 09/05/25 1323 Gaming Surveillance Observer: us [facility] External Provider IMG US PROCEDURES Final Result * BI Mammogram Diagnostic Tomosynthesis Bilateral (09/05/2025 12:30 PM EST) Anatomical Region Laterality Modality Breast Bilateral Mammography 09/05/2025 12:3 0 PM EST Narrative 09/05/2025 3:31 PM EST [address] [place] [address] Mammography Report Signed Patient: Nisha Brown MR# : [id number] : 1985 Acct:[id number] Age/Sex: 40 / F ADM Date: 09/05/25 Loc: HO.MAMMO Attending Dr: Jairo Bingham MD Ordering Physician: Harmony Sheldon CNM Results: 2Beni gn Date of Service: 09/05/25 Follow Up: Surgical Consult Procedure(s): MM tomosynthesis diagnostic BI Accession Number(s): [id number] cc: Jairo Bingham MD; Harmony Sheldon CNM [...] by: Giovanny Lockhart MD 09/05/2025 03:28 PM [facility] Dictated By: Giovanny Lockhart MD Signed By: <Electronically signed by Giovanny Lockhart MD in OV> 09/05/25 1528 DD/ 1230 TD/TT: 09/05/25 1249 Gaming Surveillance Observer: Procedure Note Donotuseinterpreter, Image - 09/05/2025 [facility] [address] [place] [address] Mammography Report Signed Patient: Kiki Brown# : [id number] : 1985Acct:[id number] Age/Sex: 40 / FADM Date: 09/05/25 Loc: HO.MAMMO Attending Dr: Jairo Bingham MD Ordering Physician: Harmony SheldonMResults: 2Beni gn Date of Service: 09/05/25Follow Up: Surgical Consult Procedure(s): MM tomosynthesis diagnostic BI Accession Number(s): [id number] cc: Jairo Bingham MD; Harmony Sheldon CNM [...] by: Giovanny Lockhart MD 09/05/2025 03:28 PM [facility] Dictated By: Giovanny Lockhart MD Signed By: <Electronically signed by Giovanny Lockhart MD in OV> 09/05/25 1528 DD/ 1230 TD/TT: 09/05/25 1249 Gaming Surveillance Observer: [facility] External Provider IMG BI PROCEDURES Final Result * Drug Monitoring, Phosphatidylethanol (PEth), Blood (08/25/2025 12:27 PM EDT) Phosphatidylethanol, Blood NEGATIVE [facility] Comment:CUTOFF 20 NG/ML PEth 16:0/18:2 (PLPEth) NEGATIVE [facility] Comment:CUTOFF 20 NG/ML PEth Comments SEE NOTE [facility] Comment:NOTES AND COMMENTSTh is drug testing is for medical treatment only. Analysiswas performed as non-forensic testing and these resultsshould be used only by healthcare providers to renderdiagnosis or treatment, or to monitor progress of medicalconditions.LDT Notes:Confirmation tests were developed and their analyticalperformance characteristics have been determined by [employer]. It has not been cleared or approved by the FDA.This assay has been validated pursuant to the CLIAregulations and is used for clinical purposes.Healthcare Providers needing Interpretation assistance,please contact us at [phone] ( ) M-F,8am to 10pm ESTPERFORMING SITE:[employer]/[address] [address] Physician: PATRICKW. BRIANA MD,PHD, CLIA: [id number] 08/25/2025 12:2 7 PM EDT 08/25/2025 12:32 PM EDT us Generic External Data Provider LAB BLOOD ORDERAB LES Final Result [facility] [address] [place] [phone] * (ABNORMAL) Hepatic Function Panel (08/25/2025 12:27 PM EDT) Bilirubin, Total 0.4 0.0 - 1.0 mg/dL [facility] Bilirubin, Direct 0.2 0.0 - 0.5 mg/dL [facility] Aspartate Amino Transferase 49(H) 5 - 31 U/L [facility] Alanine Aminotransferase 72(H) 0 - 31 U/L [facility] Total Protein 7.5 6.5 - 8.0 g/dL [facility] Albumin Level 4.2 3.5 - 5.0 g/dL [facility] Alkaline Phosphatase 83 39 - 117 U/L [facility] 08/25/2025 12:2 7 PM EDT 08/25/2025 12:32 PM EDT us Generic External Data Provider LAB BLOOD ORDERAB LES Final Result Performing Organization Address City/State/[facility] Co de Phone Number [facility] [address] [place] [phone] * MR Abdomen w/ and w/o Contrast (08/11/2025 2:29 PM EDT) Anatomical Region Laterality Modality Abdomen Magnetic Resonan ce 08/11/2025 2:29 PM EDT Narrative 08/11/2025 2:30 PM EDT [address] [address] Magnetic Resonance Report Signed Patient: Nisha Brown MR# : [id number] : 1985 Acct:[id number] Age/Sex: 40 / F ADM Date: 08/10/25 Loc: HO.MRI Attending Dr: Digna Torres MD Ordering Physician: Digna Torres MD Date of Service: 08/10/25 Procedure(s): MR abdomen wo/w con Accession Number(s): [id number] cc: Jairo Bingham MD; Digna Torres MD [...] OV> 08/11/25 1430 DD/ 142 TD/TT: 08/11/251428 [employer] Surveillance Observer: Procedure Note Donotuseinterpreter, Image - 08/11/2025 [place] [address] Magnetic Resonance Report Signed Patient: Kiki Brown# : [id number] : 1985Acct:[id number] Age/Sex: 40 / FADM Date: 08/10/25 Loc: HO.MRI Attending Dr: Digna Torres MD Ordering Physician: Digna Torres MD Date of Service: 08/10/25 Procedure(s): MR abdomen wo/w con Accession Number(s): [id number] cc: Jairo Bingham MD; Digna Torres MD [...] OV> 08/11/25 1430 DD/ 28 TD/TT: 08/11/251428 Gaming Surveillance Observer: [facility] External Provider IMG MRI PROCEDURES Final Result * (ABNORMAL) Lipid Panel with Reflex to Direct LDL (07/18/2025 8:26 AM EDT) Triglycerides 90 <150 mg/dL [facility] Comment:Desirable Triglyceri de: less than 150 mg/dLBorderline High Triglyceride 150-199 mg/dLHigh Triglyceride: 200-499 mg/dLVery High Triglyceride: greater than or equal to 5OO mg/dL Cholesterol 136 <200 mg/dL [facility] Comment:Desirable Cholestero l: less than 200 mg/dLBorderline High Cholesterol: 200-239 mg/dLHigh Cholesterol: greater than 239 mg/dL LDL Cholesterol Calculated 83 <100 mg/dL [facility] Comment:Desirable LDL: less than 100 mg/dLNear Optimal/Above Optimal LDL: 110- 129 mg/dLBorderline High LDL: 130-159 mg/dLHigh LDL: 160-189 mg/dLVery High LDL: greater than or equal to 190 mg/dL HDL Cholesterol 35(L) >40 mg/dL [facility] Comment:Desirable HDL: great er than 40 mg/dL Note: This HDL assay may give artificially low results in patients with liver disease. 07/18/2025 8:2 6 AM EDT 07/18/2025 8:26 AM EDT us Generic External Data Provider LAB BLOOD ORDERAB LES Final Result [facility] [address] [place] [phone] * (ABNORMAL) Comprehensive Metabolic Panel, Fasting (06/29/2025 10:55 AM EDT) Sodium 143 135 - 145 mmol/L [facility] Potassium 4.1 3.3 - 5.1 mmol/L [facility] Chloride 109(H) 96 - 108 mmol/L [facility] Carbon Dioxide 25 22 - 29 mmol/L [facility] Anion Gap 13 12 - 20 [facility] Urea Nitrogen (BUN) 10 9 - 16 mg/dL [facility] Creatinine, Serum 0.73 0.5 - 1.4 mg/dL [facility] Estimated Glomerular Filt Rate >60 [facility] Comment:Chronic Kidney Disea se: Estimated GFR < 60 mL/min/1.06w9Qdpvxy Kidney Disease: Estimated GFR < 15 mL/min/1.73m2 Glucose Fasting 79 60 - 99 mg/dL [facility] Calcium 8.9 8.4 - 10.2 mg/dL [facility] Bilirubin, Total 0.5 0.0 - 1.0 mg/dL [facility] Aspartate Amino Transferase 65(H) 5 - 31 U/L [facility] Alanine Aminotransferase 84(H) 0 - 31 U/L [facility] Total Protein 7.3 6.5 - 8.0 g/dL [facility] Albumin Level 4.1 3.5 - 5.0 g/dL [facility] Alkaline Phosphatase 77 39 - 117 U/L [facility] 06/29/2025 10:5 5 AM EDT 06/29/2025 10:55 AM EDT us Generic External Data Provider LAB BLOOD ORDERAB LES Final Result Performing Organization Address [facility]/ZIP Co de Phone Number [facility] [address] [place] [phone] * Vitamin B12 (Cobalamin) and Folate Panel, Serum (06/29/2025 10:55 AM EDT) Vitamin B12 473 200 - 900 pg/mL [facility] Comment:NORMAL 200-900 PG/ML INDETERMINATE 160-199 PG/ML DEFICIENT < 160 PG/ML Folate 9.3 > or = 4.0 ng/mL [facility] Comment:Reference Values:> o r = 4.0 ng/mL< 4.0 ng/mL suggests folate deficiency Methotrexate, aminopterin and folinic acid(leucovorin) are chemotherapeutic agents whose molecularstructures are similar to folate; therefore, the Architectfolate assay cannot be used for patients using these drugs. 06/29/2025 10:5 5 AM EDT 06/29/2025 10:55 AM EDT us Generic External Data Provider LAB BLOOD ORDERAB LES Final Result Performing Organization Address [facility] Co de Phone Number [facility] [address] [place] [phone] * TSH with Reflex to Free T4 (06/29/2025 10:55 AM EDT) TSH reflex Free T4 1.34 0.32 - 4.0 uIU/mL [facility] 06/29/2025 10:5 5 AM EDT 06/29/2025 10:55 AM EDT us Generic External Data Provider LAB BLOOD ORDERAB LES Final Result Performing Organization Address [facility] Co de Phone Number [facility] [address] [place] [phone] * Lyme Disease Ab with Reflex to Blot (IgG, IgM) (06/29/2025 10:55 AM EDT) Pathologist [facility] Lyme Antibody Screen <0.90 index [facility] Comment:Index Interpretation ----- < 0.90 [...] when erythemamigrans is apparent.THIS TEST WAS PERFORMED AT:[facility] [place] [id number] MCELROY MD Lyme Blot [facility] 06/29/2025 10:5 5 AM EDT 06/29/2025 10:55 AM EDT us Generic External Data Provider LAB BLOOD ORDERAB LES Final Result [facility] [address] [place] [phone] * CBC auto differential (06/29/2025 10:55 AM EDT) [facility] White Blood Count 7.7 4.8 - 10.8 X10*3/uL [facility] Red Blood Count 4.60 4.20 - 5.50 X10*6/uL [facility] Hemoglobin 13.9 12.0 - 16.0 g/dl [facility] Hematocrit 41.4 37.0 - 47.0 % [facility] Mean Corpuscular Volume 90.0 80.0 - 98.0 fL [facility] Mean Corpuscular Hemoglobin 30.2 27.0 - 33.0 pg [facility] Mean Corpuscular HGB Conc 33.6 31.0 - 35.0 g/dl [facility] Red Cell Distribution Width 12.4 11.0 - 16.0 % [facility] Platelet Count 298 160 - 400 X10*3/uL [facility] Mean Platelet Volume 10.3 9.4 - 12.3 fL [facility] Neutrophils Percent Auto 67.2 45 - 73 % [facility] Imm Gran Pct Auto 0.3 0.0 - 0.4 % [facility] Lymphocytes Percent Auto 24.9 20 - 40 % [facility] Monocytes Percent Auto 6.6 2 - 11 % [facility] Eosinophils Percent Auto 0.5 0 - 4 % [facility] Basophils Percent Auto 0.5 0 - 2 % [facility] NRBC Pct Auto 0.0 0.0 - 0.2 /100WBC [facility] Neutrophils Absolute Auto 5.2 2.0 - 8.3 x10*3/uL [facility] Imm Gran Abs Auto 0.02 0.00 - 0.03 X10*3/uL [facility] Lymphocytes Absolute Auto 1.9 1.2 - 4.9 X10*3/uL [facility] Monocytes Absolute Auto 0.5 0.1 - 1.2 X10*3/uL [facility] Eosinophils Absolute Auto 0.0 0.0 - 0.4 X10*3/uL [facility] Basophils Absolute Auto 0.0 0.0 - 0.2 X10*3/uL [facility] NRBC Abs Auto 0.000 0.0 - 0.012 X10*3/uL [facility] 06/29/2025 10:5 5 AM EDT 06/29/2025 10:55 AM EDT us Generic External Data Provider LAB BLOOD ORDERAB LES Final Result [facility] [address] [place] [phone] * Methylmalonic Acid (06/29/2025 10:55 AM EDT) Methylmalonic Acid 141 55 - 335 nmol/L [facility] Comment: Serum methylmalonic acid (MMA) [...] outcomes,such as neural tube defects and intrauterine growthrestriction.[employer] utilized Multi-Modal Decomposition(MMD) analysis to establish first and second trimester-specific MMA reference intervals in , as givenbelow:MMA, First trimester (<13 wks gestation): 58-167 nmol/LMMA, Second trimester (13-23 wks gestation):63-241 nmol/LThis test was developed and its analytical performancecharacteristics have been determined by [employer]. It has not been cleared or approved by theFDA. This assay has been validated pursuant to the CLIAregulations and is used for clinical purposes.THIS TEST WAS PERFORMED AT:[employer] [place] [address]QMEDNZHGINETTE WARREN MD,PHD 06/29/2025 10:5 5 AM EDT 06/29/2025 10:55 AM EDT us Generic External Data Provider LAB BLOOD ORDERAB LES Final Result [facility] [address], [place] [phone] * (ABNORMAL) Iron And Total Iron Binding Capacity (06/29/2025 10:55 AM EDT) Iron 90 30 - 160 mcg/dL [facility] Total Iron Binding Capacity 215(L) 228 - 428 mcg/dL [facility] Percent Iron Saturation 42 15 - 50 % [facility] Unsaturated Iron Binding 125 ug/dL [facility] 06/29/2025 10:5 5 AM EDT 06/29/2025 10:55 AM EDT us Generic External Data Provider LAB BLOOD ORDERAB LES Final Result Performing Organization Address [facility]/ZIP Co de Phone Number [facility] [address] [place] [phone] * Sed Rate by Modified Altagraciaren (06/29/2025 10:55 AM EDT) Erythrocyte Sedimentation Rate 18 0 - 20 MM/HR [facility] Comment:Patients with polycy themia and many hemoglobin abnormalitiesmay have depressed sed rates whereas patients with anemiamay have elevated sed rates. 06/29/2025 10:5 5 AM EDT 06/29/2025 10:55 AM EDT us Generic External Data Provider LAB BLOOD ORDERAB LES Final Result Performing Organization Address [facility] Co de Phone Number [facility] [address] [place] [phone] * (ABNORMAL) C-reactive Protein (06/29/2025 10:55 AM EDT) C Reactive Protein 1.98(H) < or = 0.50 mg/dL [facility] 06/29/2025 10:5 5 AM EDT 06/29/2025 10:55 AM EDT us Generic External Data Provider LAB BLOOD ORDERAB LES Final Result Performing Organization Address [facility] Co de Phone Number [facility] [address] [place] [phone] * (ABNORMAL) Vitamin B1 (06/29/2025 10:55 AM EDT) Vitamin B1 <6(A) 8 - 30 nmol/L [facility] Comment:Vitamin supplementat ion within 24 hours prior toblood draw may affect the accuracy of the results.This test was developed and its analytical performancecharacteristics have been determined by [employer] [place], [place]. It hasnot been cleared or approved by the U.S. Food and DrugAdministration. This assay has been validated pursuantto the CLIA regulations and is used for clinicalpurposes.THIS TEST WAS PERFORMED AT:[id number] [place] [address]GBACLVPGINETTE WARREN MD,PHD 06/29/2025 10:5 5 AM EDT 06/29/2025 10:55 AM EDT us Generic External Data Provider LAB BLOOD ORDERAB LES Final Result Performing Organization Address [facility]/ZIP Co de Phone Number [facility] [address] [place] [phone] * Vitamin B6, Plasma (06/29/2025 10:55 AM EDT) Vitamin B6 5.3 2.1 - 21.7 ng/mL [facility] Comment:Vitamin supplementat ion within 24 hours prior toblood draw may affect the accuracy of the results.This test was developed and its analytical performancecharacteristics have been determined by [employer] [place], [place]. It hasnot been cleared or approved by the U.S. Food and DrugAdministration. This assay has been validated pursuantto the CLIA regulations and is used for clinicalpurposes.THIS TEST WAS PERFORMED AT:[employer]/[id number] [place] [address]NVQYJFCGINETTE WARREN MD,PHD 06/29/2025 10:5 5 AM EDT 06/29/2025 10:55 AM EDT us Generic External Data Provider LAB BLOOD ORDERAB LES Final Result Performing Organization Address City/[facility]/ZIP Co de Phone Number [facility] [address] [place] [phone] * Magnesium (06/29/2025 10:55 AM EDT) Pathologist [facility] Magnesium 2.2 1.6 - 2.6 mg/dL [facility] 06/29/2025 10:5 5 AM EDT 06/29/2025 10:55 AM EDT Generic External Data Provider LAB BLOOD ORDERAB LES Final Result Performing Organization Address [facility] Co de Phone Number [facility] [address] [place] [phone] * Homocysteine (06/29/2025 10:55 AM EDT) [facility] Homocysteine 6.8 < or = 11.0 umol/L [facility] Comment:Homocysteine is incr eased by functional deficiency offolate or vitamin B12. Testing for methylmalonic aciddifferentiates between these deficiencies. Other causesof increased homocysteine include renal failure, folateantagonists such as methotrexate and phenytoin, andexposure to nitrous oxide.Kendrick Downing, et al., Kristie Purchasing Department Clerk Med. 1999;131(5):331-9.THIS TEST WAS PERFORMED AT:[facility] [place] [id number] MCELROY MD 06/29/2025 10:5 5 AM EDT 06/29/2025 10:55 AM EDT Generic External Data Provider LAB BLOOD ORDERAB LES Final Result Performing Organization Address [facility] Co de Phone Number [facility] [address] [place] [phone] * Hemoglobin A1c (06/29/2025 10:55 AM EDT) Pathologist [facility] Hemoglobin A1c 5.4 <6.0 % [facility] [facility] Comment:Hemoglobin A1C Refer ence Range Adults: 4.8 - 6.0 % Non diabetic: < 6.0 % Goal: < 7.0 %Additional Action Suggested: > 8.0 %Note: Hemoglobin A1c results are invalid for patients with abnormal amounts of HbF. Blood transfusions may impact the HbA1c concentration in the patient sample. Estimated Average Glucose 108 mg/dL [facility] Comment:eAG = Estimated ave rage glucose which is %A1C expressed asaverage glucose, using the formula of the I3Z-HmzftnmCmimibs Glucose study (ADAG), Diabetes Care, Vol.31,#8,2007 06/29/2025 10:5 5 AM EDT 06/29/2025 10:55 AM EDT Generic External Data Provider LAB BLOOD ORDERAB LES Final Result Performing Organization Address [facility]/ZIP Co de Phone Number [facility] [address] [place] [phone] * (ABNORMAL) Ferritin (06/29/2025 10:55 AM EDT) Ferritin 500(H) 10 - 250 ng/mL [facility] 06/29/2025 10:5 5 AM EDT 06/29/2025 10:55 AM EDT Generic External Data Provider LAB BLOOD ORDERAB LES Final Result Performing Organization Address [facility]/ZIP Co de Phone Number [facility] [address] [place] [phone] * Hepatitis Panel, General (03/30/2025 9:16 AM EDT) Hepatitis A IgM Nonreactive Nonreactive [facility] Comment:IgM antibodies to PFEIFFER V not detected; does not exclude earlyacute or recovered HAV infection. ~Hepatitis B Surface Antibody REACTIVE Nonreactive [facility] Comment:REACTIVE: > 11.99 mI U/mL Hepatitis B Core Antibody Nonreactive Nonreactive [facility] Hepatitis C Antibody Nonreactive Nonreactive [facility] Comment:Antibodies to HCV no t detected; does not exclude early acuteHCV infection. Hepatitis B Surface Ag Negative Negative [facility] Blood 03/30/2025 9:16 AM EDT 03/30/2025 11:37 AM EDT us Jairo Bingham MD LAB BLOOD ORDERABLES Fin al Result Performing Organization Address [facility]/ZIP Co de Phone Number [facility] [address] [place] [phone] * HIV-1/2 Antigen and Antibodies, Fourth Generation, with Reflexes (03/30/2025 9:16 AM EDT) HIV AB/AG Nonreactive Nonreactive [facility] Comment:HIV-1 p24 Ag and/or HIV-1/HIV-2 Ab not detected.A test result that is nonreactive does not exclude thepossibility of exposure to or infection with HIV-1 and/orHIV-2. Nonreactive results in this assay for individualswith prior exposure to HIV-1 and/or HIV-2 may be due toantigen and antibody levels that are below the limit ofdetection of this assay.The [employer] HIV Ag/Ab Combo assay result andsupplemental assay [...] jayne Result - Final Performing Organization Address [facility]/ZIP Co de Phone Number [facility] [address] [place] [phone] * HPV E6/E7 RFLX XENIA 16 18/45 (02/12/2022 3:42 PM EDT) HPV mRNA E6/E7 rflx Not Detected Not Detected [facility] Comment: Methodology: Hide House Supervisor-Mediated Amplification This assay detects E6/E7 viral messenger RNA (mRNA) from 14 high-risk HPV types (16,18,31,33,35,39,45,51,52,56,58,59,66,68). The analytical performance characteristics of this assay have been determined by [employer]. The modifications have not been cleared or approved by the FDA. This assay has been validated pursuant to the CLIA regulations and is used for clinical purposes. For additional information, please refer to http://education.[employer]/faq/LNW109h8 (This link if provided for information/ educational purposes only.) THIS TEST WAS PERFORMED AT: [facility] [address] [place] [address] [address]LO[address],[place] [phone] TREY MCELROY MD 02/12/2022 3:42 PM EDT [facility] HISTORICAL/NON ORDERABLE LABS Fi nal Result [facility] [address] * Hm Pap Smear (02/12/2022) Historical Provider HEALTH MAINTENANCE Final Result from Last 3 Months or Most Recently Relevant to Health Maintenance Insurance [facility] C3 Care Teams Suction Worker Relationship Specialty Start Date End Date Jairo Bingham MD [address] [place] [phone] PCP - General Family Medicine 08/16/18 Teressa Winn Sales Engagement ExecutiveRolled Gold Plater 07/19/25
--- OUTSIDE RECORDS SUMMARY | 2025-09-28 21:58 | XMS_ITS | Encounter Summary ---
Author Organization [employer] Address [address] 7[address] [place] [address] Care Team Providers Care Corduroy Cutting Supervisor Name Role Phone Yolanda Aaron MD Primary Care Provider + Encounter Details Date Type Department Care Team (Latest Contact Info) Description 08/10/2025 Results Follow-Up [facility] [address] [place] [address] Yolanda Aaron MD [address] [place] [address] US Pelvis Transvaginal Social History Tobacco Use [...] EDT Pelvic ultrasound on 08/09/2025 ordered by preforms laminator showed bilateral ovarian cyst, patient is to follow-up with preforms laminator. documented in this encounter Plan of Treatment Upcoming Encounters Date Type Department Care Team (Late st Contact Info) Description 09/29/2025 11:15 AM EST Office Visit [facility] [address] [place] [address] Yolanda Aaron MD [address] [place] [address] documented as of this encounter Visit Diagnoses Not on filedocumented in this encounter Additional Health Concerns Assessment Noted Time PHQ-9 Depression Total Score: 22 025 11:10 AM EDT documented as of this encounter Care Teams Corduroy Cutting Supervisor Relationship Specialty Start Date End Date Yolanda Aaron MD [address] [place] [address] PCP - General Family Medicine 08/16/18 Teressa Winn Summer Sessions DirectorManager Strategic 07/19/25 documented as of this encounter
--- OUTSIDE RECORDS SUMMARY | 2025-09-28 21:58 | XMS_ITS | Encounter Summary ---
Author Organization [employer] Address [address] [facility] [address] 7[address] [place] [address] Care Team Providers Care Sales And In Home Delivery Specialist Name Role Phone Yolanda Aaron MD Primary Care Provider + Cris Cabrera RN Unavailable [phone] Encounter Details Date Type Department Care Team (Late st Contact Info) Description 08/05/2023 Abstract [facility] [address] [place], [place] [phone] Yolanda Aaron MD [address] [place] [address] Social History Tobacco Use Types Packs/Day Years [...] [facility] [address] [place] [address] Yolanda Aaron MD [address] [place] [address] documented as of this encounter Visit Diagnoses Not on filedocumented in this encounter Additional Health Concerns Assessment Noted Time PHQ-9 Depression Total Score: 023 3:33 PM EDT documented as of this encounter Care Teams Sales And In Home Delivery Specialist Relationship Specialty Start Date End Date Yolanda Aaron MD [address] [place] [address] PCP - General Family Medicine 08/16/18 Cris Cabrera RN [address] [place] [phone] Lens Fabricating Machine TenderTest Engine Mechanic 04/25/24 08/03/24 Teressa Winn Lens Fabricating Machine TenderTest Engine Mechanic 07/19/25 documented as of this encounter
--- OUTSIDE RECORDS SUMMARY | 2025-09-28 21:58 | XMS_ITS | Encounter Summary ---
Author Organization [employer] Address [address] [facility] 7t [place] [address] Care Team Providers Care Rehabilitation Case Coordinator Name Role Phone Yolanda Aaron MD Primary Care Provider + Cris Cabrera RN Unavailable [phone] Encounter Details Date Type Department Care Team (Late Contact Info) Description 07/20/2023 Orders Only [facility] [address] [place] [phone] Provider, MD Estelle Social History Tobacco Use [...] Description 09/29/2025 11:15 AM EST Office Visit [facility] [address] [place] [address] Yolanda Aaron MD [address] [place] [address] documented as of this encounter Procedures Procedure [...] documented as of this encounter Care Teams Rehabilitation Case Coordinator Relationship Specialty Start Date End Date Yolanda Aaron MD [address] [place] [address] PCP - General Family Medicine 08/16/18 Cris Cabrera RN [address] [place] [address] Trenching Machine OperatorPicture Frames Inspector 04/25/24 08/03/24 Teressa Winn Trenching Machine OperatorPicture Frames Inspector 07/19/25 documented as of this encounter
--- OUTSIDE RECORDS SUMMARY | 2025-09-28 21:58 | XMS_ITS | Encounter Summary ---
Author Organization [employer] Address [address] [facility] 7t [place] [address] Care Team Providers Care Ship Ceiler Name Role Phone Yolanda Aaron MD Primary Care Provider + Cris Cabrera RN Unavailable [phone] Encounter Details Date Type Department Care Team (Late Contact Info) Description 04/20/2023 Abstract [facility]INE [address] [place] [address] Yolanda Aaron MD [address] [place] [address] [phone] Social History Tobacco Use Types Packs/Day Years [...] Description 09/29/2025 11:15 AM EST Office Visit [facility] [address] [place] [address] Yolanda Aaron MD [address] [place] [address] documented as of this encounter Visit Diagnoses Not on filedocumented in this encounter Additional Health Concerns Assessment Noted Time PHQ-9 Depression Total Score: 13 023 2:39 PM EDT documented as of this encounter Care Teams Ship Ceiler Relationship Specialty Start Date End Date Yolanda Aaron MD [address] [place] [address] PCP - General Family Medicine 08/16/18 Cris Cabrera RN [address] [place] [address] Order PackerPiercer 04/25/24 08/03/24 Teressa Winn Order PackerPiercer 07/19/25 documented as of this encounter
== END 2025-09-28 16:21 | disposition home or self-care (01) ==
LOC: HO.HWS 15:51
PROVIDERS: PCP Internal Medicine; Visit Provider Advanced Practice Midwife
DX: D24.1 Benign neoplasm of right breast (principal); D24.2 Benign neoplasm of left breast; N64.4 Mastodynia; N94.10 Unspecified dyspareunia; Z87.42 Personal history of other diseases of the female genital tract; N89.8 Other specified noninflammatory disorders of vagina; N94.89 Other specified conditions associated with female genital organs and menstrual cycle; Z32.02 Encounter for pregnancy test, result negative
CPT/HCPCS: 99213

== ENCOUNTER 2025-09-28 15:51 | Outpatient (REF) | payer MEDICAID, SELFPAY ==
[2025-09-28 23:56] LABS: Bacterial Vaginosis PCR NEGATIVE (Negative); Candida Group PCR NOT DETECTED (Not Detect); Candida glab krusei PCR NOT DETECTED (Not Detect); Trichomonas vaginalis PCR NOT DETECTED (Not Detect)
[2025-09-29 00:28] LABS: CT PCR NOT DETECTED (Not Detect.); NG PCR NOT DETECTED (Not Detect.)
== END 2025-09-28 15:52 | disposition home or self-care (01) ==
LOC: HO.LNP 15:51
PROVIDERS: PCP Internal Medicine; Visit Provider Advanced Practice Midwife
DX: N89.8 Other specified noninflammatory disorders of vagina (principal); D24.1 Benign neoplasm of right breast; D24.2 Benign neoplasm of left breast; R10.20 Pelvic and perineal pain unspecified side; N64.4 Mastodynia; Z20.2 Contact with and (suspected) exposure to infections with a predominantly sexual mode of transmission; Z32.02 Encounter for pregnancy test, result negative; Z98.51 Tubal ligation status; Z87.42 Personal history of other diseases of the female genital tract
CPT/HCPCS: 81002; 81025; 81515; 87491; 87591; 99212

== ENCOUNTER 2025-10-24 12:36 | Outpatient (AMB) | payer MEDICAID, SELFPAY ==
--- NOTE | 2025-10-24 12:40 | A.OFFVIS_ITS ---
Vital Signs 3 10/24/25 12:57 Height 5 ft 4 in Weight 173 lb BMI 29.7 BP 118/76 Blood Pressure Location Rt brachial Position Sitting Pulse 71 Intake Visit Reasons: mastodynia Intake Note: Patient is seen in office for evaluation of mastodynia. Pt c/o:reports pain/discomfort right breast, reports increase in size. mm:09/05/25 L.OV:03/10/24 Administrative Receptionist Required: Yes Administrative Receptionist Language: Ccnp Services: Administrative Receptionist Present Administrative Receptionist Name: Karolyn Information Interpreted: non-clinical & clinical Accompanied by: Self / Same As Patient Allergies No Known Allergies Allergy (Verified 10/24/25 12:58) Medication List - Last Reconciled 10/24/25 by Joaquín Mcqueen MD bisacodyl 10 mg (2 x 5 mg) PO DAILY PRN cholecalciferol (vitamin D3) 1,250 mcg PO QWEEK 12 days clindamycin phosphate 2% 1 appful vaginal DAILY clonidine HCl 0.1 mg PO BEDTIME diclofenac potassium 50 mg PO BID PRN 30 days doxycycline hyclate 100 mg PO BID 14 days galcanezumab-gnlm (Emgality Pen) 240 mg (2 mL) subcut ONCE 30 days lidocaine 5% patches topical linaclotide (Linzess) 72 mcg PO DAILY meclizine 50 mg PO BID PRN 30 days metronidazole 0.75%(37.5mg/5gram) (Vandazole) 1 appful vaginal DAILY 5 days miconazole nitrate 2% (Monistat 7) 1 appful vaginal BEDTIME 7 days multivitamin 1 tab PO DAILY polyethylene glycol 3350 (Miralax) 17 grams PO DAILY PRN 30 days psyllium husk (Reguloid (psyllium husk)) 0.8 grams PO BEDTIME quetiapine 100 mg PO BEDTIME sertraline 150 mg PO DAILY sumatriptan succinate 50 - 100 mg orally at onset of headache, may repeat in 2 hrs PRN; max 2 tabs per day or 4 tabs/week (may take with Tylenol) 30 days terconazole 0.8% 1 appful vaginal BEDTIME 3 days thiamine HCl (vitamin B1) 100 mg PO DAILY HPI Comments Details: 40-year-old female patient, former patient of Dr. Lemon returning with complaints of an enlarging fibroadenoma of the right breast with the associated pain. She has had pain from bilateral breast lumps for many years and previously underwent bilateral breast biopsies which revealed fibroadenoma (10/24/2020). Her most recent mammogram and ultrasound performed on 09/05/2025 revealed bilateral fibroadenoma which have previously been biopsy. The lesion in the 1 o'clock position right breast, 6 cm from the nipple is slightly larger than the previous examination and was noted to be tender to palpation. Surgical consultation was recommended given the increase in size. She reports a prior history of blood clots with pulmonary embolism and was previously treated by Dr. Patel. She is currently off anticoagulation. [facility] Medical History Pelvic inflammatory disease (PID) Well woman exam with routine gynecological exam Breast lump Breast pain Pelvic pain Obesity UTI (urinary tract infection) Encounter for screening examination for sexually transmitted disease Bacterial vaginosis Vaginal itching Fibroadenoma Vaginal discharge Vaginal odor Fracture of orbital floor, blow-out, right, closed Problematic vaginal discharge Mass of right breast Microcalcification of left breast on mammography Abnormal Pap smear of cervix Pulmonary embolism Bilateral pulmonary embolism PE (pulmonary thromboembolism) DVT (deep venous thrombosis) Surgical History Hx of tubal ligation Hx of foot surgery Family History Maternal Aunt Breast cancer, Onset Age: 29 Colon cancer Ovarian cancer Brother Diabetes Sister Diabetes Maternal Aunt Metastasis from esophageal cancer Father Colon cancer Family/Other Colon cancer Ovarian cancer Mother Breast cancer Social History Household Members: Children Housing: Apartment Are you a primary intensive care medicine specialist to a significant other at home: No Do you presently have visiting nurse or other home services: No Alcohol intake: never Patient Tobacco Use Status: Current everyday Tobacco user Tobacco use type: Cigarette service: No Current occupational status: unemployed Gender identity: Female Female Reproductive History Menstrual Age of Menarche: 13 Total pregnancies: 5 Review of Systems Const All systems reviewed & are unremarkable except as noted in HPI and below Physical Exam Vital Signs: Last Vital Signs Pulse 71 10/24/25 12:57 BP 118/76 10/24/25 12:57 BMI result Body Mass Index 29.7 Const General: cooperative and no acute distress Nutritional Appearance: well nourished Orientation/consciousness: patient oriented x3 Limitations: no limitations HEENT Head: Yes normocephalic and Yes atraumatic Ears: hearing grossly normal bilaterally Chest Other: Right breast with a tender palpable mass located in the upper inner quadrant measuring approximally 2 cm in diameter, mobile within the breast tissue and most consistent with a fibroadenoma. No overlying skin changes were appreciated. The remaining breast tissue is soft with no suspicious palpable mass, skin change, or nipple discharge. No axillary lymph nodes are appreciated. Left breast reveals a palpable fibroadenoma just above the nipple in the 12 o'clock position, again mobile within the breast tissue without overlying skin changes. No other suspicious masses are appreciated. Axillary lymph nodes are not appreciated. Chest/axillae images: 2 1. Palpable mass with the associated tenderness right breast 1 o'clock position 2. Previous incision left breast lower inner quadrant, tender to palpation. Resp Effort & Inspection: normal respiratory effort, no audible wheezes, no cough and no respiratory distress Cardio Jugular venous distension: no JVD GI Inspection: Yes normal to inspection Skin Other: Warm, dry, no rash Neuro General: patient oriented x3 Extrem General: Yes no clubbing, cyanosis or edema Assessment & Plan Assessment & Plan (1) Fibroadenoma of both breasts: Code(s): D24.1 - Benign neoplasm of right breast; D24.2 - Benign neoplasm of left breast Category: Medical Plan 40-year-old female patient with known history of bilateral fibroadenoma noted to have an enlarging painful lump in the right breast confirmed by mammogram and ultrasound performed on 09/05/2025. On examination there is a large fibroadenoma in the 1 o'clock position approximately 6 cm from the nipple which is extremely tender to palpation. I recommended she consider excision of this enlarging fibroadenoma as a short-stay surgery. After discussion of the procedure, risks, and alternatives, she consents to the right breast lumpectomy. Orders: Referrals 2 General Surgery Procedure Notification D24.1 - Benign neoplasm of right breast, D24.2 - Benign neoplasm of left breast Coding Level of Care Code Est Pt Level 4 (22016) Diagnoses Fibroadenoma of both breasts D24.1; D24.2
[2025-10-24 12:57] VITALS: BP 118/76; PULSE 71; BMI 29.7
--- OUTSIDE RECORDS SUMMARY | 2025-10-24 16:31 | XMS_ITS | Encounter Summary ---
Author Organization [employer] Address [address] [facility] 7t [place] [address] Care Team Providers Care Kiln Car Unloader Name Role Phone Yolanda Aaron MD Primary Care Provider + Cris Cabrera RN Unavailable [phone] Encounter Details Date Type Department Care Team (Late st Contact Info) Description 12/01/2022 Abstract [facility] [address] [place], [place] [phone] Yolanda Aaron MD [address] [place], [place] [phone] Social History Tobacco Use Types Packs/Day Years [...] Care Team (Late st Contact Info) Description 11/07/2025 2:00 PM EST Medication Management [address] [address] Gage Rodrigues, PharmD [address] [place] [phone] 11/24/2025 10:15 AM EST Office Visit [facility] [address] [place] [address] Jessica Bush ANP [address] [place] [address] documented as of this encounter Visit Diagnoses Not on filedocumented in this encounter Additional Health Concerns Assessment Noted Time PHQ-9 Depression Total Score: 11 023 11:41 AM EST documented as of this encounter Care Teams Kiln Car Unloader Relationship Specialty Start Date End Date Yolanda Aaron MD [address] [place] [address] PCP - General Family Medicine 08/16/18 Cris Cabrera RN [address] [place] [address] Barber Tool SharpenerFoot Tender 04/25/24 08/03/24 Teressa Winn Barber Tool SharpenerFoot Tender 07/19/25 documented as of this encounter
--- OUTSIDE RECORDS SUMMARY | 2025-10-24 16:32 | XMS_ITS | Encounter Summary ---
Author Organization [employer] Address [address] [facility] 7 [place] [address] Care Team Providers Care Welder Production Line Arc Name Role Phone Yolanda Aaron MD Primary Care Provider + Cris Cabrera RN Unavailable [phone] Encounter Details Date Type Department Care Team (Late st Contact Info) Description 04/20/2023 Abstract [facility] MEDICINE [address] [place] [phone] Yolanda Aaron MD [address] [place] [address] [phone] Social History Tobacco Use Types Packs/Day Years [...] Department Care Team (Late Contact Info) Description 11/07/2025 2:00 PM EST Medication Management [facility]INE [address] [place], [place] [phone] Gage Rodrigues, PharmD [address] [place] [address] [phone] 11/24/2025 10:15 AM EST Office Visit [facility]INE [address] [place] [address] [phone] Jessica Bush, ANP [address] [place], [place] [phone] documented as of this encounter Visit Diagnoses Not on filedocumented in this encounter Additional Health Concerns Assessment Noted Time PHQ-9 Depression Total Score: 13 023 2:39 PM EDT documented as of this encounter Care Teams Welder Production Line Arc Relationship Specialty Start Date End Date Yolanda Aaron MD [address] [place] [address] [phone] PCP - General Family Medicine 08/16/18 Cris Cabrera RN [address] [place] [address] Senior AuditorMarketing Services Coordinator 04/25/24 08/03/24 Teressa Winn Senior AuditorMarketing Services Coordinator 07/19/25 documented as of this encounter
--- OUTSIDE RECORDS SUMMARY | 2025-10-24 16:32 | XMS_ITS | Encounter Summary ---
Author Organization [employer] Address [address] [facility] 7 [place] [address] Care Team Providers Care Fruit Picker Name Role Phone Yolanda Aaron MD Primary Care Provider + Cris Cabrera RN Unavailable [phone] Encounter Details Date Type Department Care Team (Late Contact Info) Description 07/20/2023 Orders Only [address] [address] Provider, MD Estelle Social History Tobacco Use [...] Description 11/07/2025 2:00 PM EST Medication Management [facility] MEDICINE [address] [place] [address] [phone] Gage Rodrigues, PharmD [address] [place] [address] 11/24/2025 10:15 AM EST Office Visit [facility]INE [address] [place] [address] [phone] Jessica Bush, ANP [address] [place], [place] [phone] documented as of this encounter Procedures Procedure [...] documented as of this encounter Care Teams Fruit Picker Relationship Specialty Start Date End Date Yolanda Aaron MD [address] [place] [phone] PCP - General Family Medicine 08/16/18 Cris Cabrera, RN [address] [place] [address] Heat Pump InstallerEquipment Scheduler 04/25/24 08/03/24 Teressa Winn Heat Pump InstallerEquipment Scheduler 07/19/25 documented as of this encounter
--- OUTSIDE RECORDS SUMMARY | 2025-10-24 16:32 | XMS_ITS | Encounter Summary ---
Author Organization [employer] Address [address] [facility] 7t [place] [address] Care Team Providers Care Neuro Psych Sales Specialist Name Role Phone Yolanda Aaron MD Primary Care Provider + Cris Cabrera RN Unavailable [phone] Encounter Details Date Type Department Care Team (Late st Contact Info) Description 12/24/2022 Orders Only [facility] MEDICINE 230 [place], [place] [phone] Yolanda Aaron MD [address] [place], [place] [phone] Social History Tobacco Use Types Packs/Day Years [...] Description 11/07/2025 2:00 PM EST Medication Management [address] [address] Gage Rodrigues, PharmD [address] [place] [address] 11/24/2025 10:15 AM EST Office Visit [facility] MEDICINE [address] [place] [phone] Jessica Bush, ANP [address] [place] [address] documented as of this encounter Visit Diagnoses Not on filedocumented in this encounter Additional Health Concerns Assessment Noted Time PHQ-9 Depression Total Score: 11 023 11:41 AM EST documented as of this encounter Care Teams Neuro Psych Sales Specialist Relationship Specialty Start Date End Date Yolanda Aaron MD [address] [place] [phone] PCP - General Family Medicine 08/16/18 Cris Cabrera RN [address] [place] [phone] Manager Real EstateDesk Lieutenant 04/25/24 08/03/24 Teressa Winn Manager Real EstateDesk Lieutenant 07/19/25 documented as of this encounter
--- OUTSIDE RECORDS SUMMARY | 2025-10-24 16:32 | XMS_ITS | Clinical Summary ---
Author Organization [employer] Address [address] [place] [address] Care Team Providers Care Space Controller Name Role Phone Jairo Bingham MD Primary Care Provider + Allergies Active Allergy Reactions Criticality Noted Date Comments Penicillins 09/29/2025 Medications * This document contains information received from the source organization and may not represent a complete record from that organization. Calcium Carb-Cholecalc iferol 500-10 MG-MCG tablet Take 1 tablet by mouth in the morning and at bedtime. 08/07/20 22 Active ergocalciferol (Vitamin D2) 1.25 MG (44699 UT) capsule TAKE 1 CAPSULE BY MOUTH ONCE A WEEK 4 capsule 6 01/27/20 23 Active hydrOXYzine HCl (Atarax) 25 MG tablet Take 1-2 tablets (25-50 mg) by mouth every 6 (six) hours if needed for anxiety. 150 tablet 11 03/10/20 24 Active emtricitabine- tenofovir DF (Truvada) 200-300 MG tablet TAKE 1 TABLET BY MOUTH EVERY MORNING 30 tablet 2 5 8:59 AM EST 02/23/20 25 Active fluticasone (Flonase) 50 MCG/ACT nasal spray Administer 1 spray into each nostril Once per day. 48 g 03/16/20 25 Active divalproex (Depakote) 250 MG EC tablet Take 250 mg by mouth at bedtime. 02/08/20 25 Active thiamine 100 MG tabletIndicati ons:Thiamine deficiency neuropathy Take 1 tablet (100 mg) by mouth Once per day. 30 tablet 11 07/14/20 25 026 Active Diclofenac Sodium 1 % gel Apply 1 inch topically if needed in the morning and at bedtime (pain). 60 g 5 9:34 AM EST 09/29/20 25 026 Active lidocaine (Lidoderm) 5 % patch Apply 1 patch topically Once per day. Remove & discard patch within 12 hours or as directed by MD. 30 patch 5 9:34 AM EST 09/29/20 25 Active QUEtiapine (SEROquel) 100 MG tablet Take 1 tablet (100 mg) by mouth at bedtime. 90 tablet 3 5 8:59 AM EST 09/29/20 25 Active perphenazine 4 MG tablet Take 1 tablet (4 mg) by mouth 2 times daily. 180 tablet 3 5 9:34 AM EST 09/29/20 25 Active sertraline (Zoloft) 100 MG tablet Take 1.5 tablets (150 mg) by mouth Once per day. 135 tablet 3 5 9:34 AM EST 09/29/20 25 Active cloNIDine (Catapres) 0.1 MG tablet Take 1 tablet (0.1 mg) by mouth at bedtime. 90 tablet 3 5 8:59 AM EST 09/29/20 25 Active Multiple Vitamin (Multivitamin) tabletIndicati ons:Thiamine deficiency neuropathy TAKE 1 TABLET BY MOUTH EVERY DAY 90 tablet 5 8:59 AM EST 10/05/20 25 Active perphenazine 4 MG tablet Take 1 tablet (4 mg) by mouth 2 times daily. 180 tablet 3 03/10/20 24 025 Discontinued(Re order (will not trigger notification to Pharmacy)) sertraline (Zoloft) 100 MG tablet Take 1.5 tablets (150 mg) by mouth Once per day. 135 tablet 3 03/10/20 24 025 Discontinued(Re order (will not trigger notification to Pharmacy)) QUEtiapine (SEROquel) 100 MG tablet Take 1 tablet (100 mg) by mouth at bedtime. 90 tablet 3 10/20/20 24 025 Discontinued(Re order (will not trigger notification to Pharmacy)) senna-docusate sodium (Senokot-S) 8.6-50 MG tablet Take 1 tablet by mouth Once per day. 30 tablet 10/20/20 24 025 cloNIDine (Catapres) 0.1 MG tablet Take 1 tablet (0.1 mg) by mouth at bedtime. 90 tablet 3 03/16/20 25 025 Discontinued(Re order (will not trigger notification to Pharmacy)) Multiple Vitamin (multivitamin) tabletIndicati ons:Thiamine deficiency neuropathy Take 1 tablet by mouth Once per day. 30 tablet 3 07/14/20 25 025 Discontinued Active Problems Problem Noted Date Diagnosed Date Chronic bilateral low back pain without sciatica 09/29/2025 Assessment & Plan (10/12/2025 2:55 PM EST): - Degenerative changes and mild arthritis noted on prior imaging. - Administered Toradol injection for acute pain relief. - Recommended physical therapy and exercise to strengthen back, she wants to go to the chiropractor on [address] that she has been to in the past. Advised use of topical patches and warm compresses. Anemia due to vitamin B6 deficiency 09/29/2025 Assessment & Plan (10/12/2025 3:00 PM EST): She's off b12 supplementation, only on thiamine for chronic alcohol use. Last b12 levels were normal. Paresthesia 09/29/2025 Assessment & Plan (10/12/2025 3:02 PM EST): - Paresthesia present in back, persistent for approximately one year, unclear if related to b12 def vs radiculopathy vs chronic alcohol use neuropathy. - Advised use of Diclofenac gel and lidocaine patches. Continue monitoring symptoms and will consider neurology referral if sxs do not improve after PT for LBP and thiamine supplementation Sexually transmitted disease counseling 03/16/20 Assessment & [...] 33.9 in adult 12/21/2024 Assessment & Plan (10/12/2025 3:01 PM EST): Discussed re weight reduction options including exercise, life style modifications, diet. Recommended to decrease soda and sugary beverage consumption, increase protein intake with meals (at least 1 portion of protein with each meal) to assist with satiety, increase dietary fiber Recommended at least 150 min/week of moderate intensity exercise. Follow-up with me in 3 months and we will start medications if she is followed by dietitian Assessment & Plan (03/16/2025 2:56 PM EDT): [...] Assessment & Plan (03/16/2025 3:01 PM EDT): Stable, I gave her information from OT referral to reschedule appointment Assessment & Plan (10/27/2024 8:25 PM EST): Refer to OT to work on pain, re consult prn if she wants to be referred for steroid injection. Bipolar I disorder with depression (CMS/HCC) 02/202411/30/2023 Elevated liver enzymes 11/30/2023 Panic attack 11/30/2023 11/30/2023 Alcoholic cirrhosis (CMS/HCC) 07/30/2023 Assessment & Plan (10/12/2025 2:53 PM EST): - Improvement of LFTs noted compared to previous ones. - FU with GI for ongoing management. Discussed importance of avoiding alcohol. Assessment & Plan (03/16/2025 3:00 PM EDT): Repeat LFTs, congratulated her for being sober from alcohol. I gave her information regarding AUD program and also to reschedule GI appointment. Assessment & Plan (07/30/2023 2:03 PM EDT): LFT's are trending down and pt is cutting down ETOH use She has been referred to AUD program. 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 Alcoholism (CMS/HCC) 12/03/2022 Assessment & Plan (10/12/2025 2:58 PM EST): She has been sober from alcohol for more than 6mo, she doesn't want to take meds or FU with AUD program Advised to follow-up closely with behavioral health team We discussed the importance of being 100% sober due to liver cirrhosis. 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 She declines [...] 500-700s, she has been reluctant to continue mcfp anticoagulation. F yearly with hematology Re consutl [...] feature s (CMS/HCC) 09/30/2022 Assessment & Plan (10/12/2025 2:56 PM EST): - Continue Seroquel, sertraline, clonidine and Perphenazine as prescribed by psychiatrist. Maintain follow-up with mental health providers. - She feels safe at home and is able to reach out for safety, she will continue to follow-up with psychotherapist Assessment & Plan (12/21/2024 11:48 AM EST): [...] and do that instead. She should call [facility] and/or consult her PCP with [...] close fu with mental health provider and refinery operator vapor recovery unit Counseled to cut down etoh use Pt [...] Plan (12/03/2022 11:27 AM EST): FU by [employer]. 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 11:15 AM EST Office Visit [address] [address] Jairo Bingham MD Class 1 obesity due to excess calories with serious comorbidity and body mass index (BMI) of 33.0 to 33.9 in adult (Primary Dx); Alcoholic cirrhosis, unspecified whether ascites present (HCC); Anemia due to vitamin B6 deficiency; Chronic bilateral low back pain without sciatica; Alcoholism (CMS/HCC) (HCC); Major depressive disorder with psychotic features (CMS/HCC) (HCC); Paresthesia; Encounter for immunization 09/29/2025 Patient Outreach [address] [address] Jairo Bingham MD Care Coordination (CHW outreach for SDOH housing and food needs-referral completed /) 09/29/[address] [phone] Jairo Bingham MD SDOH Concerns 09/29/2025 Travel 09/28/2025 Orders Only GENERIC EXTERNAL DATA DEPARTMENT Provider, Generic External Data 09/14/2025 Patient Outreach [address] [address] Jairo Bingham MD Pre-visit Planning ((Unable to reach for PVP screening, LVM) to be completed in office ) 08/25/2025 Orders Only GENERIC EXTERNAL DATA DEPARTMENT Provider, Generic External Data 08/10/2025 Results Follow-Up [address] [address] Jairo Bingham MD US Pelvis Transvaginal from Last 3 Months Immunizations Immunization Administration Dates Next Due Hep A, Adult 09/29/2025 Hep B, adult 08/26/2021, 1,03/23/2019,2017,08/16/2018 Pfizer Covid-19 Vaccine 12+ 07/28/2022 Pfizer Covid-19 Vaccine 12+ bhargavi-sucrose (Patricia Cap) 07/28/2022 Social History Tobacco Use Types Packs/Day Years Used Date Smoking Tobacco: Some Days Cigarettes Passive Smoke Exposure: Current Smokeless Tobacco: Never Tobacco Cessation:Ready to Q uit: Not Asked; Counseling Given: Not Answered Alcohol Use Standard Drinks/Week Comments Yes 0 (1 standard drink = 0.6 oz pur e alcohol) oca Alcohol Answer Date Recorded How often do you have a drink containing alcohol ? 1 09/29/2025 How many drinks containing a lcohol do you have on a typical day when you are drinking? 1 09/29/2025 How often do you have six or more drinks on one occasion? 1 09/29/2025 Depression Answer Date Recorded Patient Health Questionnaire-9 Score 9 09/29/2025 Patient Health Questionnaire-9 Score 9 09/29/2025 Last PHQ-9: Questionnaire Data Not on file 1 11/30/2024 Housing Stability Answer Date Recorded What is your housing situation today? I have housing today, but I am worried about losing housing in the future 09/29/[address] you li ve. Do you have problems with any of the following? None of the above 09/29/2025 Food Insecurity Answer Date Recorded Within the past 12 months, y ou worried that your food would run out before you got money to buy more: Sometimes True 2024 Within the past 12 months,th e food you bought just didn't last and you didn't have enough money to get more: Sometimes True 09/29/2025 Transportation Answer Date Recorded In the past 12 months, has l ack of transportation kept you from medical appts, meetings, work or from getting things needed for daily living? No 09/29/2025 Utilities Answer Date Recorded In the past 12 months, has t he [employer], gas, oil or water [employer] threatened to shut off services in your home? Yes 09/29/2025 Depression Answer Date Recorded Patient Health Questionnaire-2 Score 2 09/29/2025 Internet Access Answer Date Recorded Internet Access Q1 Yes 09/29/2025 Internet Access Q2 Not on file 09/29/2025 Comments No Sex and Gender Information Value Date Recorded Sex Assigned at Female 08/04/2023 11:25 AM EDT Legal Sex Female 4:19 PM EDT Gender Identity Female 08/04/2023 11:25 AM EDT Sexual Orientation Lesbian or Hein 08/04/2023 11 :25 AM EDT Sexual Orientation Straight 08/04/2023 11 :25 AM EDT Last Filed Vital Signs Vital Sign Reading Time Taken Comments Blood Pressure 118/62 09/29/2025 11:45 AM EST Pulse 81 09/29/2025 11:45 AM EST Temperature 36.7 C (98.1 F) 09/29/2025 11:45 AM EST Respiratory Rate 22 09/29/2025 11:4 5 AM EST Oxygen Saturation 99% 09/29/2025 11: 45 AM EST Inhaled Oxygen Concentration - - Weight 79.7 kg (175 lb 12.8 oz) 025 11:45 AM EST Height 157.5 cm (5' 2 ) 09/29/2025 11:4 5 AM EST Body Mass Index 32.15 09/29/2025 11:45 AM EST Plan of Treatment Upcoming Encounters Date Type Department Care Team (Late st Contact Info) Description 11/07/2025 2:00 PM EST Medication Management [facility] [address] [place] [phone] Gage Rodrigues, PharmD [address] [place] [phone] 11/24/2025 10:15 AM EST Office Visit [facility] [address] [place] [id number] Jessica Bush, ANP [address] [place] [address] Health Maintenance Due Date Last Done Comments Family Planning (PISQ) 2000 HPV Vaccines (1 - 3-dose series) 2000 DTaP/Tdap/Td Vaccines (1 - Tdap) 2004 Pneumococcal Vaccine: Pediatrics (0 to 5 Years) and At-Risk Patients (6 to 49) Years (1 of 2 - PCV) 2004 COVID-19 Vaccine (3 - 2024- season) 2025 07/28/2022, 07/28/2022 Influenza Vaccine (#1) 2025 Disability Screening 03/16/2026 03/16/2025 Depression Monitoring 03/30/2026 09/29/2025, 025 Hepatitis A Vaccines (2 of 2 - Risk 2-dose series) 03/30/2026 09/29/2025 Mammogram 09/05/2026 09/05/2025, 08/26, 01/05/2025, Additional history exists Alcohol/Substance Use Screening 09/29/2026 09/29/2025 SDOH Screening 09/29/2026 09/29/2025 Tobacco Screening 09/29/2026 09/29/2025 Cervical Cancer Screening 02/12/2027 HPV/Cotest 02/12/2027 02/12/2022, 01/25, 10/05/2020, Additional history exists Pap Smear 02/12/2027 02/12/2022 Lipid Panel 07/18/2030 07/18/2025 Zoster Vaccines (1 of 2) 2035 RSV Patients and Patients Aged 60 years or older (1 - 1-dose 75+ series) 2060 Hepatitis B Vaccines Completed 08/26/2021, 07/22/2021, 03/23/2019, Additional history exists HIV Screening Completed 10/04/2025, 060 02/2025, 03/28/2025, Additional history exists Hepatitis C Screening Completed 10/04/2025 , 03/30/2025, 03/28/2025, Additional history exists HIB Vaccines Aged Out [...] Procedure Name Priority Date/Time Associated Diagnosis Comments HIV ANTIBODY/ANTIGEN ([facility]) Routine 10/04/2025 HEPATITIS C ANTIBODY ([facility]) Routine 10/04/2025 SYPHILIS ABS ([facility]) Routine 10/04/2025 CHLAMYDIA/GONORRHEA THROAT SWAB ([facility]) Routine 10/04/2025 CHLAMYDIA/GONORRHEA VAGINAL SWAB ([facility]) Routine 10/04/2025 CHLAMYDIA/N. GONORRHOEAE RNA, TMA, UROGENITAL Routine 09/28/2025 3:45 PM EST BACTERIAL VAGINOSIS PANEL Routine 2024 3:45 PM EST US PELVIS TRANSVAGINAL Routine 1:45 PM EST BI US BREAST LIMITED RIGHT Routine 09/05 1:05 PM EST BI MAMMOGRAM DIAGNOSTIC TOMOSYNTHESIS BILATERAL Routine 09/05/2025 12:30 PM EST DRUG MONITORING, PHOSPHATIDYLETHANOL (PETH), BLOOD Routine 08/25/2025 12:27 PM EDT HEPATIC FUNCTION PANEL Routine 12:27 PM EDT MR ABDOMEN W AND WO CONTRAST Routine 08/11/2025 2:29 PM EDT US PELVIS TRANSVAGINAL Routine 5 3:00 PM EDT LIPID PANEL WITH REFLEX TO DIRECT LDL Routine 07/18/2025 8:26 AM EDT ZZZ HISTORICAL HPV E6/E7 RFLX XENIA 16 18/45 Routine 02/12/2022 3:42 PM EDT HM PAP/HPV Routine 02/12/2022 from Last 3 Months or Most Recently Relevant to Health Maintenance Results * Chlamydia/Gonorrhea Vaginal Swab ([facility]) (10/04/2025) Chlamydia Vaginal Swab Negative Negative, Indeterminate, None Detected, Trace, 3+, Specimen unsatisfactory for evaluation, Weakly Positive, 1+, 2+ Gonorrhea Vaginal Swab Negative Negative, Indeterminate, None Detected, Trace, 3+, Specimen unsatisfactory for evaluation, Weakly Positive, 1+, 2+ Swab Vaginal structure / Unknown 10/04/2025 [facility] Provider MD LAB MICROBIOLOGY - GENERA L ORDERABLES Edited Result - Final * Chlamydia/Gonorrhea Throat Swab ([facility]) (10/04/2025) Chlamydia Throat Swab Negative Gonorrhea Throat Swab Negative Swab 10/04/2025 Result [facility] Provider LAB MICROBIOLOGY - GENERA L ORDERABLES Edited Result - Final * Syphilis Antibodies (DP) (10/04/2025) Syphilis Abs Nonreactive Borderline, Nonreactive, Weakly Reactive, Inconclusive, Specimen unsatisfactory for evaluation Blood Venous blood specimen / Unknown 10/04/2025 [facility] Provider MD LAB BLOOD ORDERABLES Edit ed Result - Final * Hepatitis C Antibody ([facility] DP) (10/04/2025) Hepatitis C Ab Nonreactive Blood 10/04/2025 us Historical Provider MD LAB BLOOD ORDERABLES Edit ed Result - Final * HIV Ab/Ag ([place] [facility]) (10/04/2025) Pathologist [facility] HIV Ag/Ab Nonreactive Blood 10/04/2025 Historical Provider MD LAB BLOOD ORDERABLES Edit ed Result - Final * Bacterial Vaginosis (09/28/2025 3:45 PM EST) Pathologist [facility] TRICHOMONAS VAGINALIS DETECTION BY PCR NOT DETECTED Not Detect [facility] BACTERIAL VAGINOSIS DETECTION BY PCR NEGATIVE Negative [facility] Comment:The BV organism targ ets [...] of 14. SERENITY GROUP DETECTION BY PCR NOT DETECTED Not Detect [facility] Serenity glab krusei PCR NOT DETECTED Not Detect [facility] 09/28/2025 3:45 PM EST 09/28/2025 5:01 PM EST Generic External Data Provider LAB MICROBIOLOGY - GENERAL ORDERABLES Final Result [facility] [address] [place] [address] [phone] * Chlamydia/N. Gonorrhoeae RNA, TMA, Urogenitial (09/28/2025 3:45 PM EST) Pathologist [facility] CT PCR NOT DETECTED Not Detect. [facility] Comment:A not detected test result [...] psychologicalconsequences. NG PCR NOT DETECTED Not Detect. [facility] Comment:A not detected test result [...] lead to adverse medical, social or psychologicalconsequences. 09/28/2025 3:45 PM EST 09/28/2025 5:01 PM EST us Generic External Data Provider LAB MICROBIOLOGY - GENERAL ORDERABLES Final Result [facility] [address] [place] [phone] * US Pelvis Transvaginal (09/14/2025 1:45 PM EST) Only the most recent of2 resultswithin the time period is included. Anatomical Region Laterality Modality Pelvis Ultrasound 09/14/2025 1:45 PM EST Narrative 09/14/2025 2:14 PM EST [address] [address] Ultrasound Report Signed Patient: Nisha Brown MR# : [id number] : 1985 Acct:[id number] Age/Sex: 40 / F ADM Date: 09/14/25 Loc: HO.US Attending Dr: Harmony Sheldon CNM Ordering Physician: Harmony Sheldon CNM Date of Service: 09/14/25 Procedure(s): US pelvic and transvaginal Accession Number(s): [id number] cc: Jairo Bingham MD; Harmony Sheldon CNM [...] 09/14/25 1411 DD/ 1345 TD/TT: 09/14/25 1356 Family Practice Physician Assistant: Procedure Note Donotuseinterpreter, Image - 09/14/2025 [place] [address] Ultrasound Report Signed Patient: Kiki Brown# : [id number] : 1985Acct:[id number] Age/Sex: 40 / FADM Date: 09/14/25 Loc: HO.US Attending Dr: Harmony Sheldon CNM Ordering Physician: Harmony Sheldon CNM Date of Service: 09/14/25 Procedure(s): US pelvic and transvaginal Accession Number(s): [id number] cc: Jairo Bingham MD; Harmony Sheldon CNM [...] Aleks Berman MD 09/14/2025 02:11 PM EST RP Dictated By: Aleks Berman MD Signed By: <Electronically signed by Aleks Berman MD in OV> 09/14/25 1411 DD/ 1345 TD/TT: 09/14/25 1356 Family Practice Physician Assistant: us [facility] External Provider IMG US PROCEDURES Final Result * BI US Breast Limited Right (09/05/2025 1:05 PM EST) Anatomical Region Laterality Modality Breast Right Ultrasound 09/05/2025 1:05 PM EST Narrative 09/05/2025 3:31 PM EST [address] [place] [address] Ultrasound Report Signed Patient: Nisha Brown MR# : [id number] : 1985 Acct:[id number] Age/Sex: 40 / F ADM Date: 09/05/25 Loc: HO.MAMMO Attending Dr: Jairo Bingham MD Ordering Physician: Harmony Sheldon CNM Date of Service: 09/05/25 Procedure(s): US Breast RT Limited Mamm Only Accession Number(s): [id number] cc: Jairo Bingham MD; Harmony Sheldon CNM [...] by: Giovanny Lockhart MD 09/05/2025 03:28 PM [facility] Dictated By: Giovanny Lockhart MD Signed By: <Electronically signed by Giovanny Lockhart MD in OV> 09/05/25 1528 DD/ 1305 TD/TT: 09/05/25 1323 Family Practice Physician Assistant: Procedure Note Donotaveryinterpreter, Image - 09/05/2025 [facility] [address] [place], [place] [address] Ultrasound Report Signed Patient: Chaparro BrownR# : [id number] : 1985Acct:[id number] Age/Sex: 40 / FADM Date: 09/05/25 Loc: HO.MAMMO Attending Dr: Jairo Bingham MD Ordering Physician: Harmony Sheldon CNM Date of Service: 09/05/25 Procedure(s): US Breast RT Limited Mamm Only Accession Number(s): [id number] cc: Jairo Bingham MD; Harmony Sheldon CNM [...] by: Giovanny Lockhart MD 09/05/2025 03:28 PM EST Dictated By: Giovanny Lockhart MD Signed By: <Electronically signed by Giovanny Lockhart MD in OV> 09/05/25 1528 DD/ 1305 TD/TT: 09/05/25 1323 Family Practice Physician Assistant: us [facility] External Provider IMG US PROCEDURES Final Result * BI Mammogram Diagnostic Tomosynthesis Bilateral (09/05/2025 12:30 PM EST) Anatomical Region Laterality Modality Breast Bilateral Mammography 09/05/2025 12:3 0 PM EST Narrative 09/05/2025 3:31 PM EST [place] [facility] [address] [place], [place] [address] Mammography Report Signed Patient: Nisha Brown MR# : [id number] : 1985 Acct:[id number] Age/Sex: 40 / F ADM Date: 09/05/25 Loc: HO.MAMMO Attending Dr: Jairo Bingham MD Ordering Physician: Harmony Sheldon CNM Results: 2Beni gn Date of Service: 09/05/25 Follow Up: Surgical Consult Procedure(s): MM tomosynthesis diagnostic BI Accession Number(s): [id number] cc: Jairo Bingham MD; Harmony Sheldon CNM Reason For Exam: Z12. - Encounter for screening mammogram for malignant [...] by: Giovanny Lockhart MD 09/05/2025 03:28 PM [facility] Dictated By: Giovanny Lockhart MD Signed By: <Electronically signed by Giovanny Lockhart MD in OV> 09/05/25 1528 DD/ 1230 TD/TT: 09/05/25 1249 Family Practice Physician Assistant: Procedure Note Donotuseinterpreter, Image - 09/05/2025 [facility] [address] [place], [place] [address] Mammography Report Signed Patient: Kiki Brown# : [id number] : 1985Acct:[id number] Age/Sex: 40 / FADM Date: 09/05/25 Loc: HO.MAMMO Attending Dr: Jairo Bingham MD Ordering Physician: Harmony SheldonMResults: 2Beni gn Date of Service: 09/05/25Follow Up: Surgical Consult Procedure(s): MM tomosynthesis diagnostic BI Accession Number(s): [id number] cc: Jairo Bingham MD; Harmony Sheldon CNM [...] fibroadenoma has mildly increased in size from 2019, but remains with benign mammographic and sonographic [...] by: Giovanny Lockhart MD 09/05/2025 03:28 PM [facility] Dictated By: Giovanny Lockhart MD Signed By: <Electronically signed by Giovanny Lockhart MD in OV> 09/05/25 1528 DD/ 1230 TD/TT: 09/05/25 1249 Family Practice Physician Assistant: [facility] External Provider IMG BI PROCEDURES Final Result * Drug Monitoring, Phosphatidylethanol (PEth), Blood (08/25/2025 12:27 PM EDT) Phosphatidylethanol, Blood NEGATIVE [facility] Comment:CUTOFF 20 NG/ML PEth 16:0/18:2 (PLPEth) NEGATIVE [facility] Comment:CUTOFF 20 NG/ML PEth Comments SEE NOTE [facility] Comment:NOTES AND COMMENTSTh is drug testing is for medical treatment only. Analysiswas performed as non-forensic testing and these resultsshould be used only by healthcare providers to renderdiagnosis or treatment, or to monitor progress of medicalconditions.LDT Notes:Confirmation tests were developed and their analyticalperformance characteristics have been determined by [facility]. It has not been cleared or approved by the FDA.This assay has been validated pursuant to the CLIAregulations and is used for clinical purposes.Healthcare Providers needing Interpretation assistance,please contact us at [phone] ( ) M-F,8am to 10pm ESTPERFORMING SITE:[facility]/[address] Plate Mounter: PATRICKW. BRIANA MD,PHD, CLIA: [id number] 08/25/2025 12:2 7 PM EDT 08/25/2025 12:32 PM EDT us Generic External Data Provider LAB BLOOD ORDERAB LES Final Result [facility] [address] [place] [phone] * (ABNORMAL) Hepatic Function Panel (08/25/2025 12:27 PM EDT) Bilirubin, Total 0.4 0.0 - 1.0 mg/dL [facility] Bilirubin, Direct 0.2 0.0 - 0.5 mg/dL [facility] Aspartate Amino Transferase 49(H) 5 - 31 U/L [facility] Alanine Aminotransferase 72(H) 0 - 31 U/L [facility] [facility] Total Protein 7.5 6.5 - 8.0 g/dL [facility] Albumin Level 4.2 3.5 - 5.0 g/dL [facility] Alkaline Phosphatase 83 39 - 117 U/L [facility] 08/25/2025 12:2 7 PM EDT 08/25/2025 12:32 PM EDT us Generic External Data Provider LAB BLOOD ORDERAB LES Final Result [facility] [address] [place] [phone] * MR Abdomen w/ and w/o Contrast (08/11/2025 2:29 PM EDT) Anatomical Region Laterality Modality Abdomen Magnetic Resonan ce 08/11/2025 2:29 PM EDT Narrative 08/11/2025 2:30 PM EDT [address] [address] Magnetic Resonance Report Signed Patient: Nisha Brown MR# : [id number] : 1985 Acct:[id number] Age/Sex: 40 / F ADM Date: 08/10/25 Loc: HO.MRI Attending Dr: Digna Torres MD Ordering Physician: Digna Torres MD Date of Service: 08/10/25 Procedure(s): MR abdomen wo/w con Accession Number(s): [id number] cc: Jairo Bingham MD; Digna Torres MD [...] OV> 08/11/25 1430 DD/ 142 TD/TT: 08/11/251428 Family Practice Physician Assistant: Procedure Note Donotuseinterpreter, Image - 08/11/[address] [address] Magnetic Resonance Report Signed Patient: Kiki Brown# : [id number] : 1985Acct:[id number] Age/Sex: 40 / FADM Date: 08/10/25 Loc: HO.MRI Attending Dr: Digna Torres MD Ordering Physician: Digna Torres MD Date of Service: 08/10/25 Procedure(s): MR abdomen wo/w con Accession Number(s): [id number] cc: Jairo Bingham MD; Digna Torres MD [...] OV> 08/11/25 1430 DD/ 28 TD/TT: 08/11/251428 Family Practice Physician Assistant: [facility] External Provider IMG MRI PROCEDURES Final Result * (ABNORMAL) Lipid Panel with Reflex to Direct LDL (07/18/2025 8:26 AM EDT) Triglycerides 90 <150 mg/dL [facility] Comment:Desirable Triglyceri de: less than 150 mg/dLBorderline High Triglyceride 150-199 mg/dLHigh Triglyceride: 200-499 mg/dLVery High Triglyceride: greater than or equal to 5OO mg/dL Cholesterol 136 <200 mg/dL [facility] Comment:Desirable Cholestero l: less than 200 mg/dLBorderline High Cholesterol: 200-239 mg/dLHigh Cholesterol: greater than 239 mg/dL LDL Cholesterol Calculated 83 <100 mg/dL [facility] Comment:Desirable LDL: less than 100 mg/dLNear Optimal/Above Optimal LDL: 110- 129 mg/dLBorderline High LDL: 130-159 mg/dLHigh LDL: 160-189 mg/dLVery High LDL: greater than or equal to 190 mg/dL HDL Cholesterol 35(L) >40 mg/dL [facility] Comment:Desirable HDL: great er than 40 mg/dL Note: This HDL assay may give artificially low results in patients with liver disease. 07/18/2025 8:26 AM EDT 07/18/2025 8:26 AM EDT Generic External Data Provider LAB BLOOD ORDERAB LES Final Result [facility] [address] [place] [address] [phone] * HPV E6/E7 RFLX XENIA 16 18/45 (02/12/2022 3:42 PM EDT) HPV mRNA E6/E7 rflx Not Detected Not Detected [facility] Comment: Methodology: [employer]-Mediated Amplification This assay detects E6/E7 viral messenger RNA (mRNA) from 14 high-risk HPV types (16,18,31,33,35,39,45,51,52,56,58,59,66,68). The analytical performance characteristics of this assay have been determined by [employer]. The modifications have not been cleared or approved by the FDA. This assay has been validated pursuant to the CLIA regulations and is used for clinical purposes. For additional information, please refer to http://education.Accountable/faq/NZT079b1 (This link if provided for information/ educational purposes only.) THIS TEST WAS PERFORMED AT: [employer] [address] [address] TREY MCELROY MD 02/12/2022 3:42 PM EDT [facility] HISTORICAL/NON ORDERABLE LABS Fi nal Result Performing Organization Address City/[facility]/ZIP Co de Phone Number [facility] [address] * Hm Pap Smear (02/12/2022) us Historical Provider HEALTH MAINTENANCE Final Result from Last 3 Months or Most Recently Relevant to Health Maintenance Insurance [facility] C3 Care Teams Space Controller Relationship Specialty Start Date End Date Jairo Bingham MD [address] [place] [phone] PCP - General Family Medicine 08/16/18 Teressa Winn Membership SecretaryInternal Recruiter 07/19/25
--- OUTSIDE RECORDS SUMMARY | 2025-10-24 16:32 | XMS_ITS | Encounter Summary ---
Author Organization [employer] Address [address] [place] [address] Care Team Providers Care Drier And Grinder Tender Name Role Phone Yolanda Aaron MD Primary Care Provider + Cris Cabrera RN Unavailable [phone] Encounter Details Date Type Department Care Team (Late st Contact Info) Description 08/05/2023 Abstract [facility] [address] [place], [place] [phone] Yolanda Aaron MD [address] [place] [address] Social History Tobacco Use Types Packs/Day Years [...] Description 11/07/2025 2:00 PM EST Medication Management [address] [address] Gage Rodrigues, PharmD [address] [place] [phone] 11/24/2025 10:15 AM EST Office Visit [address] [address] Jessica Bush ANP [address] [place] [phone] documented as of this encounter Visit Diagnoses Not on filedocumented in this encounter Additional Health Concerns Assessment Noted Time PHQ-9 Depression Total Score: 023 3:33 PM EDT documented as of this encounter Care Teams Drier And Grinder Tender Relationship Specialty Start Date End Date Yolanda Aaron MD [address] [place] [phone] PCP - General Family Medicine 08/16/18 Cris Cabrera RN [address] [place] [phone] Car Stereo InstallerTechnical Associate 04/25/24 08/03/24 Teressa Winn Car Stereo InstallerTechnical Associate 07/19/25 documented as of this encounter
== END 2025-10-24 13:38 | disposition home or self-care (01) ==
LOC: HO.HGS 12:37
PROVIDERS: PCP Internal Medicine; Visit Provider Surgery
DX: D24.1 Benign neoplasm of right breast (principal); D24.2 Benign neoplasm of left breast
CPT/HCPCS: 99214

== ENCOUNTER → 2025-10-24 12:36 | Outpatient (BNVA) | payer MEDICAID, SELFPAY | PROVIDERS: PCP Internal Medicine; Visit Provider Surgery | DX: N64.4 Mastodynia (principal); D24.1 Benign neoplasm of right breast; D24.2 Benign neoplasm of left breast; F17.210 Nicotine dependence, cigarettes, uncomplicated | CPT/HCPCS: 99212 ==